=== PATIENT | female | born 1950 | race African-American/Black ===

== ENCOUNTER 2017-08-18 15:34 | Inpatient (IN) | payer MEDICARE ==
[~2017-08-18] VITALS: Ht 160 cm; Wt 71.4 kg
[2017-08-18] MEDS ORDERED: Acetaminophen 650 MG SUPP RECTAL ONE (16:00)
[2017-08-18 16:02] VITALS: BP 147/59
[2017-08-18 16:13] LABS: APPEARANCE,URINE CLOUDY; BILIRUBIN, URINE NEGATIVE (NEGATIVE); COLOR,URINE PALE YELLOW; GLUCOSE, URINE (UA) 4+ (NEGATIVE); KETONES,URINE 4+ (NEGATIVE); LEUKOCYTE ESTERASE ,URINE 3+ (NEGATIVE); NITRITE,URINE POSITIVE (NEGATIVE); PH,URINE 5 (4.5-8.0); PROTEIN,URINE 2+ (NEGATIVE); UROBILINOGEN,URINE NORMAL MG/DL (0.0-1.0)
[2017-08-18 16:15] LABS: BASOPHILS % (AUTO) 0.8 % (0.0-2.0); HEMATOCRIT 34.3 % (37.0-47.0); HEMOGLOBIN 11.1 G/DL (12.0-16.0); LYMPHOCYTES % (AUTO) 16.6 % (20.0-45.0); MEAN CORPUSCULAR VOLUME 101 FL (80-99); MONOCYTES % (AUTO) 7.8 % (1.0-10.0); NEUTROPHILS % (AUTO) 74.7 % (45.0-75.0); PLATELET COUNT 304 K/UL (150-450); RED BLOOD COUNT 3.42 M/UL (4.20-5.40); RED CELL DISTRIBUTION WIDTH 15.1 % (11.6-14.8); WHITE BLOOD COUNT 4.2 K/UL (4.8-10.8)
[2017-08-18 16:32] LABS: ALANINE AMINOTRANSFERASE 20 U/L (3-33); ALBUMIN 3.5 g/dL (3.5-5.2); ALBUMIN/GLOBULIN RATIO 1.1 (1.0-2.7); ALKALINE PHOSPHATASE 53 U/L (35-104); ANION GAP 32 (5-15); ASPARTATE AMINO TRANSFERASE 44 U/L (5-40); BILIRUBIN,TOTAL 0.4 mg/dL (0.0-1.2); BLOOD UREA NITROGEN 48 mg/dL (7-23); CARBON DIOXIDE 10 mEQ/L (20-30); CHLORIDE 92 mEQ/L (98-107); CREATINE KINASE > 1700 U/L (26-140); CREATININE 1.4 mg/dL (0.5-0.9); POTASSIUM 5.6 mEQ/L (3.4-4.9); SODIUM 134 mEQ/L (135-145)
[2017-08-18 16:43] LABS: CKMB 5.8 ng/mL (< 3.8)
[2017-08-18 16:45] VITALS: BP 126/55
[2017-08-18] MEDS ORDERED: cefTRIAXone 2 GM in NS 110 ML IVPB ONE (16:45)
--- NOTE | 2017-08-18 16:58 | Diagnostic Imaging Report ---
Indication: Altered level of consciousness Technique: spiral acquisitions obtained through the brain. Angled axial and coronal 5 x 5 mm slices were reconstructed. No IV contrast utilized. Radiation dose was minimized using automated exposure control Total dose length product 1407 mGycm. CTDIvol(s) 70 mGy Comparison: none FINDINGS: No acute hemorrhage or edema. No mass effect or midline shift. There is age-related enlargement of the ventricles and extra axial CSF spaces. There is periventricular deep white matter ischemic change. Normal sofia-white differentiation. Visualized orbits are unremarkable. Visualized sinuses are unremarkable. Intact calvarium. IMPRESSION: Chronic and age-related changes. Negative for acute intracranial bleed or mass effect The CT scanner at [facility] is accredited by the [employer] and the scans are performed using protocols designed to limit radiation exposure to as low as reasonably achievable to attain images of sufficient resolution adequate for diagnostic evaluation
--- NOTE | 2017-08-18 16:58 | Diagnostic Imaging Report ---
Indication: Altered level of consciousness Technique: spiral acquisitions obtained through the brain. Angled axial and coronal 5 x 5 mm slices were reconstructed. No IV contrast utilized. Radiation dose was minimized using automated exposure control Total dose length product 1407 mGycm. CTDIvol(s) 70 mGy Comparison: none FINDINGS: No acute hemorrhage or edema. No mass effect or midline shift. There is age-related enlargement of the ventricles and extra axial CSF spaces. There is periventricular deep white matter ischemic change. Normal sofia-white differentiation. Visualized orbits are unremarkable. Visualized sinuses are unremarkable. Intact calvarium. IMPRESSION: Chronic and age-related changes. Negative for acute intracranial bleed or mass effect The CT scanner at [facility] is accredited by the [employer] and the scans are performed using protocols designed to limit radiation exposure to as low as reasonably achievable to attain images of sufficient resolution adequate for diagnostic evaluation
--- NOTE | 2017-08-18 17:03 | Diagnostic Imaging Report ---
Indication: Chest pain Technique: One view of the chest Comparison: none Findings: There are bilateral reticular interstitial opacities diffusely. The lungs are hyperinflated. Heart size is normal. Aorta is elongated tortuous and calcified. The pleural spaces are clear. The bones are intact Impression: Hyperinflation, likely COPD Diffuse bilateral interstitial disease. Acuity indeterminate. Appearance is suggestive of chronic interstitial fibrosis, but acute interstitial edema is also a possibility. Correlate with clinical findings
[2017-08-18] MEDS ORDERED: PROTONIX40 MG ORAL (18:12)
[2017-08-18] MEDS ORDERED: MS CONTIN30 MG ORAL (18:12)
[2017-08-18] MEDS ORDERED: AMLODIPINE BESY10 MG ORAL (18:12)
[2017-08-18] MEDS ORDERED: CATAPRES0.1 MG ORAL (18:12)
[2017-08-18] MEDS ORDERED: NUTREN PO (18:12)
[2017-08-18] MEDS ORDERED: CALCIUM500 M3 PO (18:12)
[2017-08-18] MEDS ORDERED: TYLENOL EXTRA500 MG ORAL (18:12)
[2017-08-18] MEDS ORDERED: MULTIVITAMINS1 EAC2 ORAL (18:12)
[2017-08-18] MEDS ORDERED: FERROUS SULFAT325 MG ORAL (18:12)
[2017-08-18] MEDS ORDERED: LOSARTAN POTASS50 MG ORAL (18:12)
[2017-08-18] MEDS ORDERED: BACLOFEN10 MG ORAL (18:12)
[2017-08-18] MEDS ORDERED: ZOFRAN4 M3 ORAL (18:12)
[2017-08-18] MEDS ORDERED: CELEXA20 MG ORAL (18:12)
[2017-08-18] MEDS ORDERED: MAGNESIUM400 M1 PO (18:12)
[2017-08-18] MEDS ORDERED: ATIVAN0.5 MG ORAL (18:12)
[2017-08-18] MEDS ORDERED: VITAMIN C500 M1 ORAL (18:12)
[2017-08-18] MEDS ORDERED: PERCOCET 5-3251 EACH ORAL (18:12)
--- NOTE | 2017-08-18 18:23 | Emergency Room Report ---
History of Present Illness General Chief Complaint: Altered Level of Consciousness Source: Patient, Family Member Present Illness HPI This is a 59-year-old female sent in by [facility] after a decreased level consciousness. Patient had prior history of chronic pain. Patient had been noted be given Narcan by EMS. Patient gradual onset of worsening mental status per this occurred over the past 2 days. The patient had previously had a fractured tailbone protruding given pain medication. Per family patient had not been vomiting. She was normally verbal and recognize family.Per patient's family member that she had type 1 diabetesShe had previously been using an insulin pump. Allergies: Coded Allergies: No Known Allergies (Unverified , 08/18/17) Patient History Past Medical History: see triage record Reviewed Nursing Documentation: PMH: Agreed, PSxH: Agreed Review of Systems All Other Systems: limited - by mental status Physical Exam Vital Signs Date Time Temp Pulse Resp B/P (MAP) Pulse Ox O2 Delivery O2 Flow Rate FiO2 08/18/17 15:31 100.9 100 18 136/75 97 Room Air Sp02 EP Interpretation: reviewed, normal General Appearance: normal inspection, well appearing, mild distress Head: atraumatic Eyes: bilateral eye other - pupils pinpoint ENT: normal ENT inspection, hearing grossly normal, normal voice Neck: normal inspection, supple, no bony tend, limited range of motion Respiratory: normal inspection, lungs clear, normal breath sounds, no respiratory distress, no retraction, no wheezing Cardiovascular #1: regular rate, rhythm, no edema Gastrointestinal: normal inspection, normal bowel sounds, non tender, soft, no guarding, no hernia Genitourinary: no CVA tenderness Musculoskeletal: normal inspection, back normal, normal range of motion Neurologic: responsive, motor weakness - general, increased respiratory rate to pain Psychiatric: mood/affect normal Skin: normal inspection, normal color, no rash Medical Decision Making Diagnostic Impression: Primary Impression: Diabetes mellitus out of control Additional Impressions: Sepsis Renal insufficiency Rhabdomyolysis Dysphagia Altered mental status, unspecified Sacral fracture ER Course Patient present for altered mental status. Differential diagnosis included but was not limited to ischemic stroke, subarachnoid hemorrhage, hypoglycemia, spinal cord injury, neurodegenerative disorder, urinary tract infection, hypoxemia.Because of complexity of patient's case laboratory testing and imaging studies were ordered.The patient was noted to have evidence urinary tract infection. The patient's creatinine was also somewhat elevated the patient was given IV fluids.. Patient was noted to have insulin pump. Per family members the patient is a type I diabetic although her paperwork reflects type IIThe per family members patient has been having difficulty swallowing and requesting further evaluation. The patient was noted to have evidence of sepsis patient was discussed with Dr. Petrona Dee for Dr. Prabhu Winn due to HMO. Labs Test 08/18/17 15:40 08/18/17 18:50 08/18/17 23:35 White Blood Count 4.2 K/UL (4.8-10.8) Red Blood Count 3.42 M/UL (4.20-5.40) Hemoglobin 11.1 G/DL (12.0-16.0) Hematocrit 34.3 % (37.0-47.0) Mean Corpuscular Volume 101 FL (80-99) Mean Corpuscular Hemoglobin 32.4 PG (27.0-31.0) Mean Corpuscular Hemoglobin Concent 32.2 G/DL (32.0-36.0) Red Cell Distribution Width 15.1 % (11.6-14.8) Platelet Count 304 K/UL (150-450) Mean Platelet Volume 5.3 FL (6.5-10.1) Neutrophils (%) (Auto) 74.7 % (45.0-75.0) Lymphocytes (%) (Auto) 16.6 % (20.0-45.0) Monocytes (%) (Auto) 7.8 % (1.0-10.0) Eosinophils (%) (Auto) 0.0 % (0.0-3.0) Basophils (%) (Auto) 0.8 % (0.0-2.0) Urine Color Pale yellow Urine Appearance Cloudy Urine pH 5 (4.5-8.0) Urine Specific [place] 1.010 (1.005-1.035) Urine Protein 2+ (NEGATIVE) Urine Glucose (UA) 4+ (NEGATIVE) Urine Ketones 4+ (NEGATIVE) Urine Occult Blood 4+ (NEGATIVE) Urine Nitrite Positive (NEGATIVE) Urine Bilirubin Negative (NEGATIVE) Urine Urobilinogen Normal MG/DL (0.0-1.0) Urine Leukocyte Esterase 3+ (NEGATIVE) Urine RBC Tntc /HPF (0 - 2) Urine WBC Tntc /HPF (0 - 2) Urine Squamous Epithelial Cells Many /LPF (NONE/OCC) Urine Bacteria Moderate /HPF (NONE) Urine Yeast Many /HPF (NONE) Total Bilirubin 0.4 mg/dL (0.0-1.2) Aspartate Amino Transf (AST/SGOT) 44 U/L (5-40) Alanine Aminotransferase (ALT/SGPT) 20 U/L (3-33) Alkaline Phosphatase 53 U/L (35-104) Total Creatine Kinase > 1700 U/L (26-140) Creatine Kinase MB 5.8 ng/mL (< 3.8) Creatine Kinase MB Relative Index 0.0 Troponin I < 0.30 ng/mL (<=0.30) Total Protein 6.6 g/dL (6.6-8.7) Albumin 3.5 g/dL (3.5-5.2) Globulin 3.1 g/dL Albumin/Globulin Ratio 1.1 (1.0-2.7) Urine Opiates Screen Positive (NEGATIVE) Urine Barbiturates Screen Negative (NEGATIVE) Phencyclidine (PCP) Screen Negative (NEGATIVE) Urine Amphetamines Screen Negative (NEGATIVE) Urine Benzodiazepines Screen Negative (NEGATIVE) Urine Cocaine Screen Negative (NEGATIVE) Urine Marijuana (THC) Screen Negative (NEGATIVE) Lactic Acid Level 2.80 mmol/L (0.66-2.22) Sodium Level 140 mEQ/L (135-145) Potassium Level 4.9 mEQ/L (3.4-4.9) Chloride Level 102 mEQ/L (98-107) Carbon Dioxide Level 10 mEQ/L (20-30) Anion Gap 28 (5-15) Blood Urea Nitrogen 37 mg/dL (7-23) Creatinine 1.2 mg/dL (0.5-0.9) Estimat Glomerular Filtration Rate 54.2 mL/min (>60) Glucose Level 556 mg/dL (74-106) Calcium Level 9.2 mg/dL (8.6-10.2) Last Vital Signs Date Time Temp Pulse Resp B/P (MAP) Pulse Ox O2 Delivery O2 Flow Rate FiO2 08/18/17 16:39 99.2 08/18/17 16:02 100 28 147/59 96 Room Air Status: unchanged Disposition: XFER SHT-TRM HOSP Condition: Serious Referrals: NON PHYSICIAN (PCP) Israel Diana Aug 18, 2017 18:23
[2017-08-18 19:40] VITALS: BP 105/69
[2017-08-18 20:50] VITALS: BP 101/62
[2017-08-18 21:30] VITALS: BP 124/51
[2017-08-18] MEDS ORDERED: D5 1/2NS 1,000 ML IV SCH (23:00)
[2017-08-18 23:58] LABS: CALCIUM 9.2 mg/dL (8.6-10.2); CREATININE 1.2 mg/dL (0.5-0.9); POTASSIUM 4.9 mEQ/L (3.4-4.9)
[2017-08-19] VITALS (18 sets, daily range): BP systolic 91–145; BP diastolic 48–81
[2017-08-19] MEDS ORDERED: oxyCODONE HCL/Acetaminophen 5/325mg ORAL PRN ×2 (01:00→08:00)
[2017-08-19] MEDS ORDERED: LORazepam 0.5mg tab ORAL PRN ×2 (01:00→09:00)
[2017-08-19] MEDS ORDERED: Acetaminophen 500mg (ES) tab ORAL PRN ×2 (01:00→08:00)
[2017-08-19] MEDS ORDERED: NovoLOG Insulin Flexpen SUBQ SCH ×2 (06:30→11:30)
[2017-08-19] MEDS ORDERED: SODIUM BICARBONATE IV SCH (08:30)
[2017-08-19] MEDS ORDERED: D5NS IV SCH (08:30)
[2017-08-19] MEDS ORDERED: Sodium Bicarbonate 50 ML in D5 1/2NS 1,000 ML IV SCH ×4 (08:30)
[2017-08-19 08:37] LABS: HEMATOCRIT 29.8 % (37.0-47.0); HEMOGLOBIN 9.8 G/DL (12.0-16.0); MEAN CORPUSCULAR VOLUME 101 FL (80-99); PLATELET COUNT 266 K/UL (150-450); RED BLOOD COUNT 2.94 M/UL (4.20-5.40); RED CELL DISTRIBUTION WIDTH 15.9 % (11.6-14.8); WHITE BLOOD COUNT 3.5 K/UL (4.8-10.8)
[2017-08-19 08:50] LABS: CALCIUM 9.4 mg/dL (8.6-10.2); CREATININE 1.2 mg/dL (0.5-0.9); PHOSPHORUS 2.4 mg/dL (2.5-4.8); POTASSIUM 4.9 mEQ/L (3.4-4.9)
[2017-08-19] MEDS ORDERED: Citalopram 20mg Tab ORAL SCH (09:00)
[2017-08-19] MEDS: Ascorbic Acid 500mg tab ORAL SCH (09:00)
[2017-08-19] MEDS ORDERED: Ascorbic Acid 500mg tab ORAL SCH (09:00)
[2017-08-19] MEDS: Losartan 50mg tab ORAL SCH (09:00)
[2017-08-19] MEDS ORDERED: Losartan 50mg tab ORAL SCH (09:00)
[2017-08-19] MEDS: Citalopram 20mg Tab ORAL SCH (09:00)
[2017-08-19] MEDS ORDERED: MS Contin 15mg tab ORAL SCH ×2 (09:00)
--- NOTE | 2017-08-19 13:03 | History & Physical ---
History and Physical History & Physicial %[id number] DKA uti sepsis htn, anxiety depression chronic pain on meds AMS lactic acidosis respiratory failure on bipap JERO CALI DO Aug 19, 2017 13:03
--- NOTE | 2017-08-19 13:03 | History & Physical ---
History and Physical History & Physicial %[id number] DKA uti sepsis htn, anxiety depression chronic pain on meds AMS lactic acidosis respiratory failure on bipap JERO CALI DO Aug 19, 2017 13:03
--- NOTE | 2017-08-19 13:03 | History & Physical ---
History and Physical History & Physicial %[id number] DKA uti sepsis htn, anxiety depression chronic pain on meds AMS lactic acidosis respiratory failure on bipap JERO CALI DO Aug 19, 2017 13:03
[2017-08-19] MEDS ORDERED: LEVEMIR100 UNIT/1 SUBQ (13:56)
[2017-08-19] MEDS ORDERED: HEPARIN SO5000 UNIT2 SUBQ (13:56)
[2017-08-19] MEDS ORDERED: LEVOTHYROXINE75 MCG ORAL (13:56)
[2017-08-19] MEDS ORDERED: HUMALOG 75/255 UNIT1 SUBQ (13:56)
[2017-08-19] MEDS ORDERED: FOSAMAX70 MG ORAL (13:56)
[2017-08-19] MEDS ORDERED: HYDRALAZINE HCL25 M2 PO (13:56)
[2017-08-19] MEDS ORDERED: D5 1/2NS 1000ml IV ONE (14:14)
[2017-08-19] MEDS: Insulin Rate Change 1 Each MISC PRN ×4 (14:35→22:17)
[2017-08-19 14:36] LABS: BASOPHILS % (AUTO) 1.1 % (0.0-2.0); HEMATOCRIT 30.1 % (37.0-47.0); HEMOGLOBIN 9.8 G/DL (12.0-16.0); LYMPHOCYTES % (AUTO) 11.7 % (20.0-45.0); MEAN CORPUSCULAR VOLUME 100 FL (80-99); NEUTROPHILS % (AUTO) 83.3 % (45.0-75.0); PLATELET COUNT 241 K/UL (150-450); RED BLOOD COUNT 3.02 M/UL (4.20-5.40); RED CELL DISTRIBUTION WIDTH 15.8 % (11.6-14.8); WHITE BLOOD COUNT 3.6 K/UL (4.8-10.8)
[2017-08-19 14:50] LABS: PHOSPHORUS 0.8 mg/dL (2.5-4.8)
[2017-08-19 14:52] LABS: ALANINE AMINOTRANSFERASE 20 U/L (3-33); ALBUMIN 2.9 g/dL (3.5-5.2); ALKALINE PHOSPHATASE 45 U/L (35-104); ANION GAP 20 (5-15); ASPARTATE AMINO TRANSFERASE 49 U/L (5-40); BILIRUBIN,TOTAL 0.3 mg/dL (0.0-1.2); BLOOD UREA NITROGEN 31 mg/dL (7-23); CALCIUM 9.2 mg/dL (8.6-10.2); CARBON DIOXIDE 19 mEQ/L (20-30); CHLORIDE 114 mEQ/L (98-107); POTASSIUM 3.3 mEQ/L (3.4-4.9); SODIUM 153 mEQ/L (135-145)
[2017-08-19] MEDS ORDERED: Sodium Phosphate 30 MM in NS 275 ML IVPB ONE (16:00)
[2017-08-19] MEDS ORDERED: Potassium Phosphate 30 MM in NS 275 ML IV ONE (16:00)
--- NOTE | 2017-08-19 18:39 | Physician Query ---
PLEASE COMPLETE DOCUMENT BEFORE SIGNING Dear Dr. Park Date: 08/19/2017 Maintenance Pipefitter/CDS Name: Misael Barnard Maintenance Pipefitter / CDS Phone #_Ext #[phone]___ Exercise your independent professional judgment when responding to query. Question asked do not imply a particular answer is desired/expected. Clinical Documentation States: "Altered Mental Status" & "AMS" documented in ED Provider Note & Dr. Bonds's History & Physical Clinical Findings Show: "Sepsis, UTI, Lactic Acidosis, Diabetes mellitus out of control" as per Dr. Bonds's History & Physical & ED Provider Note Please indicate the nature and chronicity of the condition below: [] Metabolic Encephalopathy [] Toxic Encephalopathy [X] Toxic - Metabolic Encephalopathy [] Progressive Encephalopathy [] Encephalopathy, Other [] Other: [] Not Applicable Severity []X Acute [] Chronic [] Acute on Chronic [] Unable to determine Condition Present on Admission: [X] Yes [] No []Clinically Undeterminable Please also document in your Progress Notes and/or Discharge Summary and indicate if the condition was present on admission. JERO BONDS DO Date & Time MTDD
--- NOTE | 2017-08-19 18:39 | Physician Query ---
PLEASE COMPLETE DOCUMENT BEFORE SIGNING Dear Dr. Park Date: 08/19/2017 School Bus Dispatcher/CDS Name: Misael Barnard School Bus Dispatcher / CDS Phone #_Ext #[phone]___ Exercise your independent professional judgment when responding to query. Question asked do not imply a particular answer is desired/expected. Clinical Documentation States: "Altered Mental Status" & "AMS" documented in ED Provider Note & Dr. Bonds's History & Physical Clinical Findings Show: "Sepsis, UTI, Lactic Acidosis, Diabetes mellitus out of control" as per Dr. Bonds's History & Physical & ED Provider Note Please indicate the nature and chronicity of the condition below: [] Metabolic Encephalopathy [] Toxic Encephalopathy [X] Toxic - Metabolic Encephalopathy [] Progressive Encephalopathy [] Encephalopathy, Other [] Other: [] Not Applicable Severity []X Acute [] Chronic [] Acute on Chronic [] Unable to determine Condition Present on Admission: [X] Yes [] No []Clinically Undeterminable Please also document in your Progress Notes and/or Discharge Summary and indicate if the condition was present on admission. JERO BONDS DO Date & Time MTDD
--- NOTE | 2017-08-19 18:39 | Physician Query ---
PLEASE COMPLETE DOCUMENT BEFORE SIGNING Dear Dr. Park Date: 08/19/2017 History Professor/CDS Name: Misael Barnard History Professor / CDS Phone #_Ext #[phone]___ Exercise your independent professional judgment when responding to query. Question asked do not imply a particular answer is desired/expected. Clinical Documentation States: "Altered Mental Status" & "AMS" documented in ED Provider Note & Dr. Bonds's History & Physical Clinical Findings Show: "Sepsis, UTI, Lactic Acidosis, Diabetes mellitus out of control" as per Dr. Bonds's History & Physical & ED Provider Note Please indicate the nature and chronicity of the condition below: [] Metabolic Encephalopathy [] Toxic Encephalopathy [X] Toxic - Metabolic Encephalopathy [] Progressive Encephalopathy [] Encephalopathy, Other [] Other: [] Not Applicable Severity []X Acute [] Chronic [] Acute on Chronic [] Unable to determine Condition Present on Admission: [X] Yes [] No []Clinically Undeterminable Please also document in your Progress Notes and/or Discharge Summary and indicate if the condition was present on admission. JERO BONDS DO Date & Time MTDD
[2017-08-19 20:54] LABS: ALANINE AMINOTRANSFERASE 20 U/L (3-33); ALBUMIN 2.5 g/dL (3.5-5.2); ALBUMIN/GLOBULIN RATIO 0.6 (1.0-2.7); ALKALINE PHOSPHATASE 51 U/L (35-104); ANION GAP 16 (5-15); ASPARTATE AMINO TRANSFERASE 64 U/L (5-40); BILIRUBIN,TOTAL 0.4 mg/dL (0.0-1.2); BLOOD UREA NITROGEN 29 mg/dL (7-23); CALCIUM 9.2 mg/dL (8.6-10.2); CARBON DIOXIDE 20 mEQ/L (20-30); CHLORIDE 115 mEQ/L (98-107); CREATININE 0.8 mg/dL (0.5-0.9); PHOSPHORUS 3.3 mg/dL (2.5-4.8); POTASSIUM 4.2 mEQ/L (3.4-4.9); SODIUM 151 mEQ/L (135-145)
[2017-08-19 21:02] LABS: BASOPHILS % (AUTO) 0.6 % (0.0-2.0); EOSINOPHILS % (AUTO) 0.1 % (0.0-3.0); HEMATOCRIT 31.5 % (37.0-47.0); HEMOGLOBIN 10.2 G/DL (12.0-16.0); LYMPHOCYTES % (AUTO) 11.9 % (20.0-45.0); MEAN CORPUSCULAR VOLUME 99 FL (80-99); MONOCYTES % (AUTO) 3.6 % (1.0-10.0); NEUTROPHILS % (AUTO) 83.8 % (45.0-75.0); PLATELET COUNT 214 K/UL (150-450); RED CELL DISTRIBUTION WIDTH 15.5 % (11.6-14.8); WHITE BLOOD COUNT 4.3 K/UL (4.8-10.8)
[2017-08-20] VITALS (25 sets, daily range): BP systolic 99–162; BP diastolic 48–85
[2017-08-20] MEDS: Insulin Rate Change 1 Each MISC PRN (02:11)
[2017-08-20 04:56] LABS: HEMATOCRIT 30.5 % (37.0-47.0); HEMOGLOBIN 10.2 G/DL (12.0-16.0); MEAN CORPUSCULAR VOLUME 98 FL (80-99); PLATELET COUNT 189 K/UL (150-450); RED BLOOD COUNT 3.11 M/UL (4.20-5.40); RED CELL DISTRIBUTION WIDTH 15.4 % (11.6-14.8); WHITE BLOOD COUNT 4.3 K/UL (4.8-10.8)
[2017-08-20 05:15] LABS: ALANINE AMINOTRANSFERASE 22 U/L (3-33); ALBUMIN 2.2 g/dL (3.5-5.2); ALBUMIN/GLOBULIN RATIO 0.5 (1.0-2.7); ALKALINE PHOSPHATASE 57 U/L (35-104); ANION GAP 15 (5-15); ASPARTATE AMINO TRANSFERASE 74 U/L (5-40); BILIRUBIN,TOTAL 0.4 mg/dL (0.0-1.2); BLOOD UREA NITROGEN 22 mg/dL (7-23); CALCIUM 8.8 mg/dL (8.6-10.2); CARBON DIOXIDE 20 mEQ/L (20-30); CHLORIDE 116 mEQ/L (98-107); CREATININE 0.7 mg/dL (0.5-0.9); PHOSPHORUS 2.6 mg/dL (2.5-4.8); POTASSIUM 3.7 mEQ/L (3.4-4.9); SODIUM 151 mEQ/L (135-145)
[2017-08-20] MEDS ORDERED: Insulin Rate Change 1 Each MISC PRN (07:15)
--- NOTE | 2017-08-20 08:38 | Pulmonolgy Critical Care Note ---
Critical Care - Asmt/Plan Assessment/Plan: DKA uti sepsis htn, anxiety depression chronic pain on meds AMS lactic acidosis respiratory failure on bipap improved this am insulin drip dc clear liquids/swallow eval fu duplex bs control iv abx adn fu cultures titrate bipap of and use prn distress nebs adn suction wound care monitor uop lytes and gap, prn abg continue ICU level of care, pt is not stable to transfer to [facility] at this time. greater than 35 minutes of critical care time spent reviewing the ON events, dw nursing, documentation, exam and plan for the day Critical Care - Objective Last 24 Hour Vital Signs Date Time Temp Pulse Resp B/P (MAP) Pulse Ox O2 Delivery O2 Flow Rate FiO2 08/20/17 07:02 99 29 98 Facial 40 08/20/17 06:00 88 27 148/65 100 Bi-pap 40 08/20/17 05:14 105 27 100 Facial 40 08/20/17 05:00 108 26 133/82 95 Bi-pap 40 08/20/17 04:00 106 08/20/17 04:00 40 08/20/17 04:00 100.7 106 26 135/69 96 Bi-pap 40 08/20/17 03:00 108 26 110/71 96 Bi-pap 40 08/20/17 02:57 110 29 99 Facial 40 08/20/17 02:00 108 21 120/79 96 Bi-pap 40 08/20/17 01:02 108 25 100 Facial 40 08/20/17 01:00 107 18 99/48 97 Bi-pap 40 08/20/17 00:00 98.0 97 23 136/67 100 Bi-pap 50 08/20/17 00:00 105 08/20/17 00:00 50 08/19/17 23:07 107 23 100 Facial 50 08/19/17 23:00 103 24 145/81 99 Bi-pap 50 08/19/17 22:00 98 24 132/55 99 Bi-pap 50 08/19/17 21:05 91 24 100 Facial 50 08/19/17 21:00 96 24 110/53 99 Bi-pap 50 08/19/17 20:00 97 08/19/17 20:00 97.9 99 22 116/62 98 Bi-pap 50 08/19/17 20:00 50 08/19/17 19:05 104 23 97 Facial 50 08/19/17 19:00 99 20 98/61 94 Bi-pap 50 08/19/17 18:00 91 20 117/53 94 Bi-pap 50 08/19/17 17:29 92 22 96 Facial 50 08/19/17 17:00 94 19 118/59 94 Bi-pap 50 08/19/17 16:00 98.9 90 21 97/51 94 Bi-pap 50 08/19/17 16:00 50 08/19/17 16:00 89 08/19/17 15:12 88 20 99 Facial 50 08/19/17 15:00 79 19 98/58 94 Bi-pap 50 08/19/17 14:00 88 20 94/48 94 Bi-pap 50 08/19/17 13:20 90 18 100 Facial 50 08/19/17 13:00 90 20 92/51 94 Bi-pap 50 08/19/17 12:00 87 08/19/17 12:00 50 08/19/17 12:00 98.9 89 21 104/50 94 Bi-pap 50 08/19/17 11:10 87 19 98 Facial 50 08/19/17 11:00 86 21 111/61 94 Bi-pap 50 08/19/17 10:00 96 21 91/55 94 Bi-pap 50 08/19/17 09:12 90 20 97 Facial 50 08/19/17 09:00 94 20 113/56 94 Bi-pap 50 Status: other - less obtunded Condition: critical Heart: HR/BP stable Abdomen: soft, active bowel sounds Extremities: no C/C/E Micro: Microbiology Date/Time Source Procedure Growth Status 08/18/17 15:50 Blood Blood Culture - Preliminary NO GROWTH AFTER 24 HOURS Resulted 08/18/17 15:40 Blood Blood Culture - Preliminary NO GROWTH AFTER 24 HOURS Resulted 08/18/17 15:40 Urine,Clean Catch Urine Culture - Preliminary Gram Negative Rafi Resulted 08/19/17 07:00 Buttock Left Gram Stain - Final Resulted 08/19/17 07:00 Buttock Left Wound Culture Pending Resulted Accucheck: 87 Blood Sugars: BS controlled Critical Care - Subjective ROS Limited/Unobtainable: Yes Condition: critical FI02: 40 Vent Support Mode: BiLevel Sputum Amount: None Subjective: remained on bipap overnight gap closed with insulin drip, fluids replacement of lytes on iv abx more awake but still confused pain meds previously held but to resume low dose today positive uop vitals improved unable to do duplex as pt is agitated to tech JERO CALI DO Aug 20, 2017 08:38
[2017-08-20] MEDS: Pantoprazole Inj IVP SCH (10:25)
[2017-08-20] MEDS: Losartan 50mg tab ORAL SCH (10:26)
[2017-08-20] MEDS: Citalopram 20mg Tab ORAL SCH (10:26)
[2017-08-20] MEDS: Ascorbic Acid 500mg tab ORAL SCH (10:27)
[2017-08-20] MEDS: Levemir Flexpen SUBQ SCH ×2 (10:41→20:39)
[2017-08-20] MEDS: NovoLOG Insulin Flexpen SUBQ SCH ×4 (10:45→20:39)
[2017-08-20] MEDS: Morphine Sulfate 2mg/ml Inj IVP PRN ×2 (10:52→23:52)
--- NOTE | 2017-08-20 13:45 | History and Physical Report ---
DATE OF ADMISSION: 08/18/2017 CRITICAL CARE HISTORY AND PHYSICAL REASON FOR ADMISSION: Altered mental status. History Of Present Illness: This is a 67-year-old female, who was admitted through the emergency room [facility] with decreased level of consciousness. Initially, the patient was reported per the emergency room record that she has a history of chronic pain and is on long-acting pain medication. She was noted with the increasing altered mental status. Paramedics gave her dose of Narcan without improvement. She has had no nausea, vomiting, or diarrhea that has been reported. She again had a recent fracture of her tailbone, which is the reason for her current chronic pain and pain management. No reported fevers or chills. In the emergency room, the patient was nonverbal and obtunded. Blood gas was not obtained. The ER doctor stated that she had diabetes and previously had been on a pump. She was started on IV antibiotics and IV fluids and transferred to [facility]. Subsequently, the patient maintained with respiratory insufficiency and increased distress. An ABG was obtained, which noted a pH of 7.129, pCO2 of 15, and pO2 of 77. The patient was placed on BiPAP and fluids were continued and repeat blood gas was somewhat improved with a pH of 7.2. Insulin sliding scale had been started due to elevated blood sugars. I was not informed that the patient was normally on long-acting insulin and had not been reordered. Her repeat ABG, pH 7.218, pCO2 17, and pO2 of 109. Upon that time, the patient was transferred to the ICU, placed on an insulin drip, and Endocrinology consult pending at this time. The patient is more awake, does move her extremities with good urine output. No evidence of nausea or vomiting. She is having no fevers and her vital signs have remained stable. Past Medical History: Includes diabetes, dementia, hypertension, depression, anxiety, and chronic pain. Medications: Present medications initially by the staff only reviewed in the electronic medical record, but her pre-hospital medical record has been reviewed as well indicating that she does take Levemir twice a day at her facility. SOCIAL HISTORY: Unavailable. REVIEW OF SYSTEMS: Unavailable. PHYSICAL EXAMINATION: General: At the time of my exam, her eyes are open. She is moving all extremities. On BiPAP 12/5 with tidal volumes of 450 to 600, no acute distress. Vital Signs: She is afebrile, pulse is 87, and blood pressure 104/50. HEENT: She is normocephalic and atraumatic. Oropharynx is dry. Nasal mucosa is dry. LUNGS: Decreased breath sounds at bases. No wheezes present. HEART: Regular without a murmur. ABDOMEN: Soft and nontender. Positive bowel sounds. EXTREMITIES: With no edema. Esposito catheter is in place. Laboratory And Diagnostic Data: Her labs from 7 o'clock this morning, white count of 3.5, hemoglobin of 9.8, and platelets of 266,000. Sodium 144, potassium 4.9, chloride 105, bicarbonate is 15, BUN is 37, creatinine 1.2, and glucose was 603. Her phosphorus 2.4. Her troponin is negative. Her gap was noted to be 24, which is down from 28. Her urinalysis is positive for leukocyte esterase. Her urine drug screen was only positive for opioids and her urine was positive for leukocyte esterase. Her chest x-ray was reported to be bilateral interstitial disease suggestive of fibrosis and a CT scan of her head with chronic age related changes, no acute pathology. Microbiology of her urine is positive for Gram-negative rods. Assessment: The patient in diabetic ketoacidosis, altered mental status, chronic pain on narcotics, hypertension, depression, anxiety, urinary tract infection, and sepsis. Plan: The patient is to continue in the intensive care unit. She is currently on an insulin drip following the hospital based insulin drip protocol, laboratory values q.6 h., IV fluid, replace her electrolytes. Continue IV antibiotics. Continue on BiPAP at this time and we will attempt to take her off if her respiratory status improves. DVT prophylaxis. Gastrointestinal prophylaxis. P.r.n. nebulizers. Home medications have been renewed. When the patient is able to take p.o., those will be resumed. Following her urine culture, blood cultures have not been obtained and these will be ordered at this time as well. Aspiration precautions greater than 75 minutes. Critical care time spent with the patient reviewing medical records and discussing with the nursing staff have been provided and we will continue to follow the patient for the remainder of her hospital stay. She is still unstable for transfer to a contracted facility. Petrona Bonds D.O. DR: Nancy JOB#: [id number] CC:
[2017-08-20] MEDS ORDERED: Tubing IV Secondary IV ONE (15:39)
[2017-08-20] MEDS ORDERED: 1/2 NS 1000ml IV ONE (15:39)
[2017-08-21] VITALS (20 sets, daily range): BP systolic 98–149; BP diastolic 52–79
[2017-08-21] MEDS: NovoLOG Insulin Flexpen SUBQ SCH ×6 (00:41→21:05)
[2017-08-21 05:38] LABS: HEMATOCRIT 27.2 % (37.0-47.0); HEMOGLOBIN 9.4 G/DL (12.0-16.0); MEAN CORPUSCULAR VOLUME 98 FL (80-99); PLATELET COUNT 122 K/UL (150-450); RED BLOOD COUNT 2.77 M/UL (4.20-5.40); RED CELL DISTRIBUTION WIDTH 15.2 % (11.6-14.8); WHITE BLOOD COUNT 5.7 K/UL (4.8-10.8)
[2017-08-21 06:14] LABS: ANION GAP 14 (5-15); BLOOD UREA NITROGEN 21 mg/dL (7-23); CALCIUM 8.4 mg/dL (8.6-10.2); CARBON DIOXIDE 21 mEQ/L (20-30); CHLORIDE 108 mEQ/L (98-107); CREATININE 0.4 mg/dL (0.5-0.9); POTASSIUM 3.5 mEQ/L (3.4-4.9); SODIUM 143 mEQ/L (135-145)
[2017-08-21] MEDS: Morphine Sulfate 2mg/ml Inj IVP PRN (07:50)
[2017-08-21] MEDS: Ascorbic Acid 500mg tab ORAL SCH (08:11)
[2017-08-21] MEDS: Citalopram 20mg Tab ORAL SCH (08:11)
[2017-08-21] MEDS: Losartan 50mg tab ORAL SCH (08:12)
[2017-08-21] MEDS: Pantoprazole Inj IVP SCH (08:13)
--- NOTE | 2017-08-21 08:14 | General Progress Note ---
Assessment/Plan Problem List: (1) DKA (diabetic ketoacidoses) ICD Codes: E13.10 - Other specified diabetes mellitus with ketoacidosis without coma SNOMED: 84047347, 427097043 (2) Altered level of consciousness ICD Codes: R40.4 - Transient alteration of awareness SNOMED: 6572472 (3) Hyperkalemia ICD Codes: E87.5 - Hyperkalemia SNOMED: 29588669 (4) Rhabdomyolysis ICD Codes: M62.82 - Rhabdomyolysis SNOMED: 362812305, 912180605 (5) Diabetes mellitus out of control ICD Codes: E11.65 - Type 2 diabetes mellitus with hyperglycemia SNOMED: 430860964, 82302206 (6) Sepsis ICD Codes: A41.9 - Sepsis, unspecified organism SNOMED: 88290158 (7) Hypothyroidism ICD Codes: E03.9 - Hypothyroidism, unspecified SNOMED: 77202906 Assessment/Plan DKA resolved continue Levemir 15 units bid continue Novolog sliding scale ac / hs continue Levothyroxine 75 mcg daily Subjective ROS Limited/Unobtainable: Yes Allergies: Coded Allergies: No Known Allergies (Unverified , 08/18/17) Subjective events noted - interval notes reviewed Objective Last 24 Hour Vital Signs Date Time Temp Pulse Resp B/P (MAP) Pulse Ox O2 Delivery O2 Flow Rate FiO2 08/21/17 07:09 83 18 Venturi Mask 12.0 50 08/21/17 07:09 96 Venturi Mask 12.0 50 08/21/17 07:09 Venturi Mask 12.0 50 08/21/17 07:00 82 21 128/55 93 Venturi Mask 50 08/21/17 06:00 79 21 135/57 95 Venturi Mask 50 08/21/17 05:00 76 22 149/61 95 Venturi Mask 50 08/21/17 04:00 98.4 76 22 131/60 94 Venturi Mask 50 08/21/17 04:00 81 08/21/17 04:00 50.0 08/21/17 03:00 87 23 98/79 93 Venturi Mask 50 08/21/17 02:00 80 21 121/52 98 Venturi Mask 50 08/21/17 01:00 79 20 108/56 95 Venturi Mask 50 08/21/17 00:06 83 08/21/17 00:00 50.0 08/21/17 00:00 98.8 83 21 123/53 95 Venturi Mask 50 08/20/17 23:00 82 20 108/50 95 Venturi Mask 50 08/20/17 22:00 88 21 116/54 96 Venturi Mask 50 08/20/17 21:00 92 23 123/57 96 Venturi Mask 50 08/20/17 20:00 99.1 91 24 139/85 95 Venturi Mask 50 08/20/17 20:00 50.0 08/20/17 19:53 91 08/20/17 19:18 Venturi Mask 12.0 50 08/20/17 19:17 89 21 Venturi Mask 12.0 50 08/20/17 19:17 98 Venturi Mask 12.0 50 08/20/17 19:00 88 24 132/49 94 Venturi Mask 50 08/20/17 18:00 89 25 115/51 92 Venturi Mask 50 08/20/17 17:00 92 25 143/66 91 Venturi Mask 50 08/20/17 16:00 99.4 94 25 152/54 93 Venturi Mask 50 08/20/17 16:00 91 08/20/17 16:00 50.0 08/20/17 15:00 95 26 127/72 91 Venturi Mask 40 08/20/17 14:00 97 26 138/72 91 Venturi Mask 40 08/20/17 13:00 98 24 150/57 92 Venturi Mask 40 08/20/17 12:16 Venturi Mask 08/20/17 12:00 110 08/20/17 12:00 40.0 08/20/17 12:00 99.4 105 27 115/54 93 Venturi Mask 40 08/20/17 11:00 103 26 143/75 92 Venturi Mask 40 08/20/17 10:26 156/67 08/20/17 10:26 94 156/67 08/20/17 10:00 102 29 156/67 94 Venturi Mask 40 08/20/17 09:00 102 27 151/73 95 Venturi Mask 40 08/20/17 09:00 96 8.0 40 Laboratory Tests 08/20/17 08:30: Thyroid Stimulating Hormone (TSH) 3.070, Free Thyroxine 0.85L 08/21/17 04:45: White Blood Count 5.7, Red Blood Count 2.77L, Hemoglobin 9.4L, Hematocrit 27.2L , Mean Corpuscular Volume 98, Mean Corpuscular Hemoglobin 33.8H, Mean Corpuscular Hemoglobin Concent 34.4, Red Cell Distribution Width 15.2H, Platelet Count 122L, Mean Platelet Volume 7.1, Neutrophils (%) (Auto) , Lymphocytes (%) (Auto) , Monocytes (%) (Auto) , Eosinophils (%) (Auto) , Basophils (%) (Auto) , Sodium Level 143, Potassium Level 3.5, Chloride Level 108H, Carbon Dioxide Level 21, Anion Gap 14, Blood Urea Nitrogen 21, Creatinine 0.4L, Estimat Glomerular Filtration Rate > 60, Glucose Level 145H, Calcium Level 8.4L, Magnesium Level 1.8 08/21/17 07:09: Arterial Blood pH 7.481H, Arterial Blood Partial Pressure CO2 31.9L, Arterial Blood Partial Pressure O2 60.5L, Arterial Blood HCO3 23.3, Arterial Blood Oxygen Saturation 91.9L, Arterial Blood Base Excess 0.2, Adolfo Test Positive Height (Feet): 5 Height (Inches): 3.00 Weight (Pounds): 104 General Appearance: no apparent distress Neck: normal alignment Cardiovascular: normal rate Respiratory/Chest: lungs clear Abdomen: normal bowel sounds Pelvis: normal external exam Edema: no edema noted Arm (L), no edema noted Arm (R), no edema noted Leg (L), no edema noted Leg (R), no edema noted Pedal (L), no edema noted Pedal (R), no edema noted Generalized Objective Current Medications Medications (Trade) Dose Ordered Sig/Adonay Route PRN Reason Start Time Stop Time Status Last Admin Dose Admin Acetaminophen (Tylenol) 650 mg Q6H PRN ORAL Mild Pain/Temp > 100.5 08/19/17 08:00 09/18/17 07:59 08/20/17 20:38 Amlodipine Besylate (Norvasc) 10 mg DAILY ORAL 08/19/17 09:00 09/18/17 08:59 08/20/17 10:26 Ascorbic Acid (Vitamin C) 500 mg DAILY ORAL 08/19/17 09:00 09/18/17 08:59 08/20/17 10:27 Baclofen (Lioresal) 10 mg THREE TIMES A DAY ORAL 08/19/17 09:00 09/18/17 08:59 08/20/17 17:47 Citalopram Hydrobromide (celeXA) 20 mg DAILY ORAL 08/19/17 09:00 09/18/17 08:59 08/20/17 10:26 Clonidine HCl (Catapres) 0.1 mg Q6H PRN ORAL SBP > 160mmHg 08/19/17 08:00 09/18/17 07:59 Dextrose (Dextrose 50%) STAT PRN IV Hypoglycemia 08/20/17 07:30 09/19/17 07:29 Ferrous Sulfate (Feosol) 325 mg DAILY ORAL 08/19/17 09:00 09/18/17 08:59 08/20/17 10:25 Insulin Aspart (NovoLOG) EVERY 4 HOURS SUBQ 08/20/17 09:00 09/19/17 08:59 08/21/17 04:51 Insulin Detemir (Levemir) 15 units Q12HR SUBQ 08/20/17 09:00 09/19/17 08:59 08/20/17 10:41 Levothyroxine Sodium (Synthroid) 75 mcg DAILY@0630 ORAL 08/20/17 07:30 09/19/17 07:29 08/21/17 05:57 Lorazepam (Ativan) 0.5 mg Q8H PRN ORAL For Anxiety 08/19/17 09:00 08/26/17 08:59 Losartan Potassium (Cozaar) 50 mg DAILY ORAL 08/19/17 09:00 09/18/17 08:59 08/20/17 10:26 Morphine Sulfate (Morphine Sulfate) 1 mg Q4H PRN IVP Severe Pain (Pain Scale 7-10) 08/20/17 08:45 08/27/17 08:44 08/21/17 07:50 Multivitamins (Multivitamins) 1 tab DAILY ORAL 08/19/17 09:00 09/18/17 08:59 08/20/17 10:26 Ondansetron HCl (Zofran) 4 mg Q6H PRN ORAL Nausea & Vomiting 08/19/17 08:00 09/18/17 07:59 Oxycodone/ Acetaminophen (Percocet 5-325) 1 tab Q6H PRN ORAL Severe Breakthrough Pain 08/19/17 08:00 10/7/17 07:59 Pantoprazole (Protonix) 40 mg DAILY IVP 08/20/17 09:00 09/19/17 08:59 08/20/17 10:25 Sodium Chloride 1,000 ml @ 150 mls/hr Q6H40M IV 08/19/17 15:15 09/18/17 15:14 08/21/17 06:57 Item Value Date Time Bedside Blood Glucose 144 mg/dl H 08/21/17 0454 Bedside Blood Glucose 141 mg/dl H 08/21/17 0041 Bedside Blood Glucose 89 mg/dl 08/20/17 2045 Bedside Blood Glucose 139 mg/dl H 08/20/17 1750 Bedside Blood Glucose 123 mg/dl H 08/20/17 1345 Bedside Blood Glucose 209 mg/dl H 08/20/17 1045 Bedside Blood Glucose 89 mg/dl 08/20/17 0600 KAYLEE DARNELL Aug 21, 2017 08:14
--- NOTE | 2017-08-21 08:14 | General Progress Note ---
Assessment/Plan Problem List: (1) DKA (diabetic ketoacidoses) ICD Codes: E13.10 - Other specified diabetes mellitus with ketoacidosis without coma SNOMED: 73071937, 024995268 (2) Altered level of consciousness ICD Codes: R40.4 - Transient alteration of awareness SNOMED: 0137929 (3) Hyperkalemia ICD Codes: E87.5 - Hyperkalemia SNOMED: 80778959 (4) Rhabdomyolysis ICD Codes: M62.82 - Rhabdomyolysis SNOMED: 860692346, 202115145 (5) Diabetes mellitus out of control ICD Codes: E11.65 - Type 2 diabetes mellitus with hyperglycemia SNOMED: 032205828, 97917204 (6) Sepsis ICD Codes: A41.9 - Sepsis, unspecified organism SNOMED: 84494387 (7) Hypothyroidism ICD Codes: E03.9 - Hypothyroidism, unspecified SNOMED: 47103121 Assessment/Plan DKA resolved continue Levemir 15 units bid continue Novolog sliding scale ac / hs continue Levothyroxine 75 mcg daily Subjective ROS Limited/Unobtainable: Yes Allergies: Coded Allergies: No Known Allergies (Unverified , 08/18/17) Subjective events noted - interval notes reviewed Objective Last 24 Hour Vital Signs Date Time Temp Pulse Resp B/P (MAP) Pulse Ox O2 Delivery O2 Flow Rate FiO2 08/21/17 07:09 83 18 Venturi Mask 12.0 50 08/21/17 07:09 96 Venturi Mask 12.0 50 08/21/17 07:09 Venturi Mask 12.0 50 08/21/17 07:00 82 21 128/55 93 Venturi Mask 50 08/21/17 06:00 79 21 135/57 95 Venturi Mask 50 08/21/17 05:00 76 22 149/61 95 Venturi Mask 50 08/21/17 04:00 98.4 76 22 131/60 94 Venturi Mask 50 08/21/17 04:00 81 08/21/17 04:00 50.0 08/21/17 03:00 87 23 98/79 93 Venturi Mask 50 08/21/17 02:00 80 21 121/52 98 Venturi Mask 50 08/21/17 01:00 79 20 108/56 95 Venturi Mask 50 08/21/17 00:06 83 08/21/17 00:00 50.0 08/21/17 00:00 98.8 83 21 123/53 95 Venturi Mask 50 08/20/17 23:00 82 20 108/50 95 Venturi Mask 50 08/20/17 22:00 88 21 116/54 96 Venturi Mask 50 08/20/17 21:00 92 23 123/57 96 Venturi Mask 50 08/20/17 20:00 99.1 91 24 139/85 95 Venturi Mask 50 08/20/17 20:00 50.0 08/20/17 19:53 91 08/20/17 19:18 Venturi Mask 12.0 50 08/20/17 19:17 89 21 Venturi Mask 12.0 50 08/20/17 19:17 98 Venturi Mask 12.0 50 08/20/17 19:00 88 24 132/49 94 Venturi Mask 50 08/20/17 18:00 89 25 115/51 92 Venturi Mask 50 08/20/17 17:00 92 25 143/66 91 Venturi Mask 50 08/20/17 16:00 99.4 94 25 152/54 93 Venturi Mask 50 08/20/17 16:00 91 08/20/17 16:00 50.0 08/20/17 15:00 95 26 127/72 91 Venturi Mask 40 08/20/17 14:00 97 26 138/72 91 Venturi Mask 40 08/20/17 13:00 98 24 150/57 92 Venturi Mask 40 08/20/17 12:16 Venturi Mask 08/20/17 12:00 110 08/20/17 12:00 40.0 08/20/17 12:00 99.4 105 27 115/54 93 Venturi Mask 40 08/20/17 11:00 103 26 143/75 92 Venturi Mask 40 08/20/17 10:26 156/67 08/20/17 10:26 94 156/67 08/20/17 10:00 102 29 156/67 94 Venturi Mask 40 08/20/17 09:00 102 27 151/73 95 Venturi Mask 40 08/20/17 09:00 96 8.0 40 Laboratory Tests 08/20/17 08:30: Thyroid Stimulating Hormone (TSH) 3.070, Free Thyroxine 0.85L 08/21/17 04:45: White Blood Count 5.7, Red Blood Count 2.77L, Hemoglobin 9.4L, Hematocrit 27.2L , Mean Corpuscular Volume 98, Mean Corpuscular Hemoglobin 33.8H, Mean Corpuscular Hemoglobin Concent 34.4, Red Cell Distribution Width 15.2H, Platelet Count 122L, Mean Platelet Volume 7.1, Neutrophils (%) (Auto) , Lymphocytes (%) (Auto) , Monocytes (%) (Auto) , Eosinophils (%) (Auto) , Basophils (%) (Auto) , Sodium Level 143, Potassium Level 3.5, Chloride Level 108H, Carbon Dioxide Level 21, Anion Gap 14, Blood Urea Nitrogen 21, Creatinine 0.4L, Estimat Glomerular Filtration Rate > 60, Glucose Level 145H, Calcium Level 8.4L, Magnesium Level 1.8 08/21/17 07:09: Arterial Blood pH 7.481H, Arterial Blood Partial Pressure CO2 31.9L, Arterial Blood Partial Pressure O2 60.5L, Arterial Blood HCO3 23.3, Arterial Blood Oxygen Saturation 91.9L, Arterial Blood Base Excess 0.2, Adolfo Test Positive Height (Feet): 5 Height (Inches): 3.00 Weight (Pounds): 104 General Appearance: no apparent distress Neck: normal alignment Cardiovascular: normal rate Respiratory/Chest: lungs clear Abdomen: normal bowel sounds Pelvis: normal external exam Edema: no edema noted Arm (L), no edema noted Arm (R), no edema noted Leg (L), no edema noted Leg (R), no edema noted Pedal (L), no edema noted Pedal (R), no edema noted Generalized Objective Current Medications Medications (Trade) Dose Ordered Sig/Adonay Route PRN Reason Start Time Stop Time Status Last Admin Dose Admin Acetaminophen (Tylenol) 650 mg Q6H PRN ORAL Mild Pain/Temp > 100.5 08/19/17 08:00 09/18/17 07:59 08/20/17 20:38 Amlodipine Besylate (Norvasc) 10 mg DAILY ORAL 08/19/17 09:00 09/18/17 08:59 08/20/17 10:26 Ascorbic Acid (Vitamin C) 500 mg DAILY ORAL 08/19/17 09:00 09/18/17 08:59 08/20/17 10:27 Baclofen (Lioresal) 10 mg THREE TIMES A DAY ORAL 08/19/17 09:00 09/18/17 08:59 08/20/17 17:47 Citalopram Hydrobromide (celeXA) 20 mg DAILY ORAL 08/19/17 09:00 09/18/17 08:59 08/20/17 10:26 Clonidine HCl (Catapres) 0.1 mg Q6H PRN ORAL SBP > 160mmHg 08/19/17 08:00 09/18/17 07:59 Dextrose (Dextrose 50%) STAT PRN IV Hypoglycemia 08/20/17 07:30 09/19/17 07:29 Ferrous Sulfate (Feosol) 325 mg DAILY ORAL 08/19/17 09:00 09/18/17 08:59 08/20/17 10:25 Insulin Aspart (NovoLOG) EVERY 4 HOURS SUBQ 08/20/17 09:00 09/19/17 08:59 08/21/17 04:51 Insulin Detemir (Levemir) 15 units Q12HR SUBQ 08/20/17 09:00 09/19/17 08:59 08/20/17 10:41 Levothyroxine Sodium (Synthroid) 75 mcg DAILY@0630 ORAL 08/20/17 07:30 09/19/17 07:29 08/21/17 05:57 Lorazepam (Ativan) 0.5 mg Q8H PRN ORAL For Anxiety 08/19/17 09:00 08/26/17 08:59 Losartan Potassium (Cozaar) 50 mg DAILY ORAL 08/19/17 09:00 09/18/17 08:59 08/20/17 10:26 Morphine Sulfate (Morphine Sulfate) 1 mg Q4H PRN IVP Severe Pain (Pain Scale 7-10) 08/20/17 08:45 08/27/17 08:44 08/21/17 07:50 Multivitamins (Multivitamins) 1 tab DAILY ORAL 08/19/17 09:00 09/18/17 08:59 08/20/17 10:26 Ondansetron HCl (Zofran) 4 mg Q6H PRN ORAL Nausea & Vomiting 08/19/17 08:00 09/18/17 07:59 Oxycodone/ Acetaminophen (Percocet 5-325) 1 tab Q6H PRN ORAL Severe Breakthrough Pain 08/19/17 08:00 10/7/17 07:59 Pantoprazole (Protonix) 40 mg DAILY IVP 08/20/17 09:00 09/19/17 08:59 08/20/17 10:25 Sodium Chloride 1,000 ml @ 150 mls/hr Q6H40M IV 08/19/17 15:15 09/18/17 15:14 08/21/17 06:57 Item Value Date Time Bedside Blood Glucose 144 mg/dl H 08/21/17 0454 Bedside Blood Glucose 141 mg/dl H 08/21/17 0041 Bedside Blood Glucose 89 mg/dl 08/20/17 2045 Bedside Blood Glucose 139 mg/dl H 08/20/17 1750 Bedside Blood Glucose 123 mg/dl H 08/20/17 1345 Bedside Blood Glucose 209 mg/dl H 08/20/17 1045 Bedside Blood Glucose 89 mg/dl 08/20/17 0600 KAYLEE DARNELL Aug 21, 2017 08:14
--- NOTE | 2017-08-21 08:14 | General Progress Note ---
Assessment/Plan Problem List: (1) DKA (diabetic ketoacidoses) ICD Codes: E13.10 - Other specified diabetes mellitus with ketoacidosis without coma SNOMED: 10247089, 464069971 (2) Altered level of consciousness ICD Codes: R40.4 - Transient alteration of awareness SNOMED: 3546365 (3) Hyperkalemia ICD Codes: E87.5 - Hyperkalemia SNOMED: 32710489 (4) Rhabdomyolysis ICD Codes: M62.82 - Rhabdomyolysis SNOMED: 305235633, 718263509 (5) Diabetes mellitus out of control ICD Codes: E11.65 - Type 2 diabetes mellitus with hyperglycemia SNOMED: 724433931, 00408596 (6) Sepsis ICD Codes: A41.9 - Sepsis, unspecified organism SNOMED: 48911924 (7) Hypothyroidism ICD Codes: E03.9 - Hypothyroidism, unspecified SNOMED: 76574703 Assessment/Plan DKA resolved continue Levemir 15 units bid continue Novolog sliding scale ac / hs continue Levothyroxine 75 mcg daily Subjective ROS Limited/Unobtainable: Yes Allergies: Coded Allergies: No Known Allergies (Unverified , 08/18/17) Subjective events noted - interval notes reviewed Objective Last 24 Hour Vital Signs Date Time Temp Pulse Resp B/P (MAP) Pulse Ox O2 Delivery O2 Flow Rate FiO2 08/21/17 07:09 83 18 Venturi Mask 12.0 50 08/21/17 07:09 96 Venturi Mask 12.0 50 08/21/17 07:09 Venturi Mask 12.0 50 08/21/17 07:00 82 21 128/55 93 Venturi Mask 50 08/21/17 06:00 79 21 135/57 95 Venturi Mask 50 08/21/17 05:00 76 22 149/61 95 Venturi Mask 50 08/21/17 04:00 98.4 76 22 131/60 94 Venturi Mask 50 08/21/17 04:00 81 08/21/17 04:00 50.0 08/21/17 03:00 87 23 98/79 93 Venturi Mask 50 08/21/17 02:00 80 21 121/52 98 Venturi Mask 50 08/21/17 01:00 79 20 108/56 95 Venturi Mask 50 08/21/17 00:06 83 08/21/17 00:00 50.0 08/21/17 00:00 98.8 83 21 123/53 95 Venturi Mask 50 08/20/17 23:00 82 20 108/50 95 Venturi Mask 50 08/20/17 22:00 88 21 116/54 96 Venturi Mask 50 08/20/17 21:00 92 23 123/57 96 Venturi Mask 50 08/20/17 20:00 99.1 91 24 139/85 95 Venturi Mask 50 08/20/17 20:00 50.0 08/20/17 19:53 91 08/20/17 19:18 Venturi Mask 12.0 50 08/20/17 19:17 89 21 Venturi Mask 12.0 50 08/20/17 19:17 98 Venturi Mask 12.0 50 08/20/17 19:00 88 24 132/49 94 Venturi Mask 50 08/20/17 18:00 89 25 115/51 92 Venturi Mask 50 08/20/17 17:00 92 25 143/66 91 Venturi Mask 50 08/20/17 16:00 99.4 94 25 152/54 93 Venturi Mask 50 08/20/17 16:00 91 08/20/17 16:00 50.0 08/20/17 15:00 95 26 127/72 91 Venturi Mask 40 08/20/17 14:00 97 26 138/72 91 Venturi Mask 40 08/20/17 13:00 98 24 150/57 92 Venturi Mask 40 08/20/17 12:16 Venturi Mask 08/20/17 12:00 110 08/20/17 12:00 40.0 08/20/17 12:00 99.4 105 27 115/54 93 Venturi Mask 40 08/20/17 11:00 103 26 143/75 92 Venturi Mask 40 08/20/17 10:26 156/67 08/20/17 10:26 94 156/67 08/20/17 10:00 102 29 156/67 94 Venturi Mask 40 08/20/17 09:00 102 27 151/73 95 Venturi Mask 40 08/20/17 09:00 96 8.0 40 Laboratory Tests 08/20/17 08:30: Thyroid Stimulating Hormone (TSH) 3.070, Free Thyroxine 0.85L 08/21/17 04:45: White Blood Count 5.7, Red Blood Count 2.77L, Hemoglobin 9.4L, Hematocrit 27.2L , Mean Corpuscular Volume 98, Mean Corpuscular Hemoglobin 33.8H, Mean Corpuscular Hemoglobin Concent 34.4, Red Cell Distribution Width 15.2H, Platelet Count 122L, Mean Platelet Volume 7.1, Neutrophils (%) (Auto) , Lymphocytes (%) (Auto) , Monocytes (%) (Auto) , Eosinophils (%) (Auto) , Basophils (%) (Auto) , Sodium Level 143, Potassium Level 3.5, Chloride Level 108H, Carbon Dioxide Level 21, Anion Gap 14, Blood Urea Nitrogen 21, Creatinine 0.4L, Estimat Glomerular Filtration Rate > 60, Glucose Level 145H, Calcium Level 8.4L, Magnesium Level 1.8 08/21/17 07:09: Arterial Blood pH 7.481H, Arterial Blood Partial Pressure CO2 31.9L, Arterial Blood Partial Pressure O2 60.5L, Arterial Blood HCO3 23.3, Arterial Blood Oxygen Saturation 91.9L, Arterial Blood Base Excess 0.2, Adolfo Test Positive Height (Feet): 5 Height (Inches): 3.00 Weight (Pounds): 104 General Appearance: no apparent distress Neck: normal alignment Cardiovascular: normal rate Respiratory/Chest: lungs clear Abdomen: normal bowel sounds Pelvis: normal external exam Edema: no edema noted Arm (L), no edema noted Arm (R), no edema noted Leg (L), no edema noted Leg (R), no edema noted Pedal (L), no edema noted Pedal (R), no edema noted Generalized Objective Current Medications Medications (Trade) Dose Ordered Sig/Adonay Route PRN Reason Start Time Stop Time Status Last Admin Dose Admin Acetaminophen (Tylenol) 650 mg Q6H PRN ORAL Mild Pain/Temp > 100.5 08/19/17 08:00 09/18/17 07:59 08/20/17 20:38 Amlodipine Besylate (Norvasc) 10 mg DAILY ORAL 08/19/17 09:00 09/18/17 08:59 08/20/17 10:26 Ascorbic Acid (Vitamin C) 500 mg DAILY ORAL 08/19/17 09:00 09/18/17 08:59 08/20/17 10:27 Baclofen (Lioresal) 10 mg THREE TIMES A DAY ORAL 08/19/17 09:00 09/18/17 08:59 08/20/17 17:47 Citalopram Hydrobromide (celeXA) 20 mg DAILY ORAL 08/19/17 09:00 09/18/17 08:59 08/20/17 10:26 Clonidine HCl (Catapres) 0.1 mg Q6H PRN ORAL SBP > 160mmHg 08/19/17 08:00 09/18/17 07:59 Dextrose (Dextrose 50%) STAT PRN IV Hypoglycemia 08/20/17 07:30 09/19/17 07:29 Ferrous Sulfate (Feosol) 325 mg DAILY ORAL 08/19/17 09:00 09/18/17 08:59 08/20/17 10:25 Insulin Aspart (NovoLOG) EVERY 4 HOURS SUBQ 08/20/17 09:00 09/19/17 08:59 08/21/17 04:51 Insulin Detemir (Levemir) 15 units Q12HR SUBQ 08/20/17 09:00 09/19/17 08:59 08/20/17 10:41 Levothyroxine Sodium (Synthroid) 75 mcg DAILY@0630 ORAL 08/20/17 07:30 09/19/17 07:29 08/21/17 05:57 Lorazepam (Ativan) 0.5 mg Q8H PRN ORAL For Anxiety 08/19/17 09:00 08/26/17 08:59 Losartan Potassium (Cozaar) 50 mg DAILY ORAL 08/19/17 09:00 09/18/17 08:59 08/20/17 10:26 Morphine Sulfate (Morphine Sulfate) 1 mg Q4H PRN IVP Severe Pain (Pain Scale 7-10) 08/20/17 08:45 08/27/17 08:44 08/21/17 07:50 Multivitamins (Multivitamins) 1 tab DAILY ORAL 08/19/17 09:00 09/18/17 08:59 08/20/17 10:26 Ondansetron HCl (Zofran) 4 mg Q6H PRN ORAL Nausea & Vomiting 08/19/17 08:00 09/18/17 07:59 Oxycodone/ Acetaminophen (Percocet 5-325) 1 tab Q6H PRN ORAL Severe Breakthrough Pain 08/19/17 08:00 10/7/17 07:59 Pantoprazole (Protonix) 40 mg DAILY IVP 08/20/17 09:00 09/19/17 08:59 08/20/17 10:25 Sodium Chloride 1,000 ml @ 150 mls/hr Q6H40M IV 08/19/17 15:15 09/18/17 15:14 08/21/17 06:57 Item Value Date Time Bedside Blood Glucose 144 mg/dl H 08/21/17 0454 Bedside Blood Glucose 141 mg/dl H 08/21/17 0041 Bedside Blood Glucose 89 mg/dl 08/20/17 2045 Bedside Blood Glucose 139 mg/dl H 08/20/17 1750 Bedside Blood Glucose 123 mg/dl H 08/20/17 1345 Bedside Blood Glucose 209 mg/dl H 08/20/17 1045 Bedside Blood Glucose 89 mg/dl 08/20/17 0600 KAYLEE DARNELL Aug 21, 2017 08:14
[2017-08-21] MEDS: Levemir Flexpen SUBQ SCH ×2 (08:17→21:06)
--- NOTE | 2017-08-21 08:31 | Consultation ---
DATE OF CONSULTATION: 08/20/2017 ENDOCRINE CONSULTATION CONSULTING PHYSICIAN: Caio Andrade M.D. REFERRING PHYSICIAN: Petrona Bonds D.O. REASON FOR CONSULTATION: Management of DKA. History of Present Illness: hx is obtained from review of medical records. The patient is lethargic, she is not able to provide any meaningful history. The patient is a 67-year-old female who was admitted to the hospital on 08/18/2017, [facility] with altered level of consciousness and prior history of chronic pain. The patient was given Narcan by EMS without any improvement. Apparently, medication was given to treat the fractured tailbone. She was also having vomiting. Apparently, the patient has a history of type 1 diabetes and treated with insulin pump therapy at the floor. Laboratory values yesterday revealed anion gap of 24 with a prior gap of 10. The patient was transferred to the ICU and started on insulin drip. Additionally, the lactic acid level was positive. Endocrinology was consulted in order to assist in the management of diabetes. PAST MEDICAL HISTORY: 1. Type 1 diabetes. 2. Tailbone fracture. 3. Hypertension. 4. Hypothyroidism. 5. Osteoporosis. SOCIAL HISTORY: Lives in a [facility] facility for now. FAMILY HISTORY: Noncontributory. REVIEW OF SYSTEMS: Unobtainable. PHYSICAL EXAMINATION: GENERAL: The patient is lethargic. Vital Signs: Blood pressure 148/65, pulse of 88, respiratory rate 27, and temperature of 98.7. HEENT: Pupils are equal and reactive to light. Sclerae anicteric. NECK: No JVD. No thyromegaly. LUNGS: Clear. HEART: Regular rate and rhythm. ABDOMEN: Positive bowel sounds. Soft. EXTREMITIES: No clubbing, cyanosis, or edema. RADIOGRAPHIC STUDIES: Difficult to obtain. Laboratory Data: Sodium 151, potassium 3.7, chloride 116, bicarbonate 30, BUN 15, creatinine 0.7 and glucose level 101. Lactic acid 2.8. DIAGNOSES: 1. Diabetic ketoacidosis, resolved. 2. Hypothyroidism. 3. Acute kidney injury. 4. Lactic acidosis. PLAN: 1. Continue IV hydration, will DC insulin drip since AG is closed now 2. Start Levemir 15 units b.i.d. 3. Start NovoLog sliding scale every four hours. 4. Starting diet is pending at the time of my evaluation. 5. Resume levothyroxine 75 mcg. Check thyroid function tests. Thank you, Dr. Bonds for the courtesy of this consultation. Caio Andrade M.D. DR: GRUPO JOB#: [id number] CC: ROSANA
--- NOTE | 2017-08-21 08:31 | Consultation ---
DATE OF CONSULTATION: 08/20/2017 ENDOCRINE CONSULTATION CONSULTING PHYSICIAN: Caio Andrade M.D. REFERRING PHYSICIAN: Petrona Bonds D.O. REASON FOR CONSULTATION: Management of DKA. History of Present Illness: hx is obtained from review of medical records. The patient is lethargic, she is not able to provide any meaningful history. The patient is a 67-year-old female who was admitted to the hospital on 08/18/2017, [facility] with altered level of consciousness and prior history of chronic pain. The patient was given Narcan by EMS without any improvement. Apparently, medication was given to treat the fractured tailbone. She was also having vomiting. Apparently, the patient has a history of type 1 diabetes and treated with insulin pump therapy at the floor. Laboratory values yesterday revealed anion gap of 24 with a prior gap of 10. The patient was transferred to the ICU and started on insulin drip. Additionally, the lactic acid level was positive. Endocrinology was consulted in order to assist in the management of diabetes. PAST MEDICAL HISTORY: 1. Type 1 diabetes. 2. Tailbone fracture. 3. Hypertension. 4. Hypothyroidism. 5. Osteoporosis. SOCIAL HISTORY: Lives in a senior care facility for now. FAMILY HISTORY: Noncontributory. REVIEW OF SYSTEMS: Unobtainable. PHYSICAL EXAMINATION: GENERAL: The patient is lethargic. Vital Signs: Blood pressure 148/65, pulse of 88, respiratory rate 27, and temperature of 98.7. HEENT: Pupils are equal and reactive to light. Sclerae anicteric. NECK: No JVD. No thyromegaly. LUNGS: Clear. HEART: Regular rate and rhythm. ABDOMEN: Positive bowel sounds. Soft. EXTREMITIES: No clubbing, cyanosis, or edema. RADIOGRAPHIC STUDIES: Difficult to obtain. Laboratory Data: Sodium 151, potassium 3.7, chloride 116, bicarbonate 30, BUN 15, creatinine 0.7 and glucose level 101. Lactic acid 2.8. DIAGNOSES: 1. Diabetic ketoacidosis, resolved. 2. Hypothyroidism. 3. Acute kidney injury. 4. Lactic acidosis. PLAN: 1. Continue IV hydration, will DC insulin drip since AG is closed now 2. Start Levemir 15 units b.i.d. 3. Start NovoLog sliding scale every four hours. 4. Starting diet is pending at the time of my evaluation. 5. Resume levothyroxine 75 mcg. Check thyroid function tests. Thank you, Dr. Bonds for the courtesy of this consultation. Caio Andrade M.D. DR: GRUPO JOB#: [id number] CC: ROSANA
--- NOTE | 2017-08-21 08:31 | Consultation ---
DATE OF CONSULTATION: 08/20/2017 ENDOCRINE CONSULTATION CONSULTING PHYSICIAN: Caio Andrade M.D. REFERRING PHYSICIAN: Petrona Bonds D.O. REASON FOR CONSULTATION: Management of DKA. History of Present Illness: hx is obtained from review of medical records. The patient is lethargic, she is not able to provide any meaningful history. The patient is a 67-year-old female who was admitted to the hospital on 08/18/2017, from a long term with altered level of consciousness and prior history of chronic pain. The patient was given Narcan by EMS without any improvement. Apparently, medication was given to treat the fractured tailbone. She was also having vomiting. Apparently, the patient has a history of type 1 diabetes and treated with insulin pump therapy at the floor. Laboratory values yesterday revealed anion gap of 24 with a prior gap of 10. The patient was transferred to the ICU and started on insulin drip. Additionally, the lactic acid level was positive. Endocrinology was consulted in order to assist in the management of diabetes. PAST MEDICAL HISTORY: 1. Type 1 diabetes. 2. Tailbone fracture. 3. Hypertension. 4. Hypothyroidism. 5. Osteoporosis. SOCIAL HISTORY: Lives in a nursing home facility for now. FAMILY HISTORY: Noncontributory. REVIEW OF SYSTEMS: Unobtainable. PHYSICAL EXAMINATION: GENERAL: The patient is lethargic. Vital Signs: Blood pressure 148/65, pulse of 88, respiratory rate 27, and temperature of 98.7. HEENT: Pupils are equal and reactive to light. Sclerae anicteric. NECK: No JVD. No thyromegaly. LUNGS: Clear. HEART: Regular rate and rhythm. ABDOMEN: Positive bowel sounds. Soft. EXTREMITIES: No clubbing, cyanosis, or edema. RADIOGRAPHIC STUDIES: Difficult to obtain. Laboratory Data: Sodium 151, potassium 3.7, chloride 116, bicarbonate 30, BUN 15, creatinine 0.7 and glucose level 101. Lactic acid 2.8. DIAGNOSES: 1. Diabetic ketoacidosis, resolved. 2. Hypothyroidism. 3. Acute kidney injury. 4. Lactic acidosis. PLAN: 1. Continue IV hydration, will DC insulin drip since AG is closed now 2. Start Levemir 15 units b.i.d. 3. Start NovoLog sliding scale every four hours. 4. Starting diet is pending at the time of my evaluation. 5. Resume levothyroxine 75 mcg. Check thyroid function tests. Thank you, Dr. Bonds for the courtesy of this consultation. Caio Andrade M.D. DR: GRUPO JOB#: [id number] CC: ROSANA
[2017-08-21 09:35] LABS: AMYLASE 21 U/L (10-110)
[2017-08-21] MEDS ORDERED: cefTRIAXone 1 GM in D5W 55 ML IVPB SCH (10:00)
[2017-08-21] MEDS ORDERED: 1/2 NS 1000ml IV ONE (10:20)
[2017-08-21] MEDS ORDERED: Sterile Water Irrig 1000ml IRRIG ONE (10:20)
[2017-08-21] MEDS ORDERED: Tubing IV Secondary IV ONE (10:20)
--- NOTE | 2017-08-21 11:09 | Diagnostic Imaging Report ---
Indication: NG tube Comparison: None Single view of the abdomen obtained NG tube is projected over the stomach appears to be in good position. The aorta is ectatic and moderately calcified. There is a right iliac stent. Bones are osteopenic. Bowel gas pattern is nonspecific. Diffuse interstitial opacities noted within the visualized lungs Impression: NG tube in good position. Other findings as above
--- NOTE | 2017-08-21 11:41 | Diagnostic Imaging Report ---
Indication: Dyspnea Comparison: 08/18/17 A single view chest radiograph was obtained. Findings: Scattered interstitial opacities appear worse compared to the previous exam. Heart size remains normal. Findings could be due to pneumonitis or infection. Interstitial edema is possible. The Impression: Worsening infiltrates. These appear primarily interstitial
--- NOTE | 2017-08-21 13:24 | Pulmonolgy Critical Care Note ---
Critical Care - Asmt/Plan Assessment/Plan: DKA, resolved uti, rx ceftriaxone sepsis htn anxiety, depression chronic pain on meds, dc IV Morphine AMS, improved but still confused lactic acidosis respiratory failure dc BiPAP to [facility] rx UTI, sepsis DM rx per Dr Andrade Disposition: transfer to - [facility] Discussed with: nurses Critical Care - Objective Last 24 Hour Vital Signs Date Time Temp Pulse Resp B/P (MAP) Pulse Ox O2 Delivery O2 Flow Rate FiO2 08/21/17 13:00 80 22 121/57 93 Venturi Mask 50 08/21/17 12:00 98.4 81 21 121/57 94 Venturi Mask 50 08/21/17 12:00 86 08/21/17 11:00 84 21 123/66 93 Venturi Mask 50 08/21/17 10:00 86 21 138/54 93 Venturi Mask 50 08/21/17 09:00 89 21 124/61 93 Venturi Mask 50 08/21/17 08:20 98.4 08/21/17 08:12 117/69 08/21/17 08:12 79 117/62 08/21/17 08:00 81 08/21/17 08:00 98.4 76 21 117/62 94 Venturi Mask 50 08/21/17 07:09 83 18 Venturi Mask 12.0 50 08/21/17 07:09 96 Venturi Mask 12.0 50 08/21/17 07:09 Venturi Mask 12.0 50 08/21/17 07:00 82 21 128/55 93 Venturi Mask 50 08/21/17 06:00 79 21 135/57 95 Venturi Mask 50 08/21/17 05:00 76 22 149/61 95 Venturi Mask 50 08/21/17 04:00 98.4 76 22 131/60 94 Venturi Mask 50 08/21/17 04:00 81 08/21/17 04:00 50.0 08/21/17 03:00 87 23 98/79 93 Venturi Mask 50 08/21/17 02:00 80 21 121/52 98 Venturi Mask 50 08/21/17 01:00 79 20 108/56 95 Venturi Mask 50 08/21/17 00:06 83 08/21/17 00:00 50.0 08/21/17 00:00 98.8 83 21 123/53 95 Venturi Mask 50 08/20/17 23:00 82 20 108/50 95 Venturi Mask 50 08/20/17 22:00 88 21 116/54 96 Venturi Mask 50 08/20/17 21:00 92 23 123/57 96 Venturi Mask 50 08/20/17 20:00 99.1 91 24 139/85 95 Venturi Mask 50 08/20/17 20:00 50.0 08/20/17 19:53 91 08/20/17 19:18 Venturi Mask 12.0 50 08/20/17 19:17 89 21 Venturi Mask 12.0 50 08/20/17 19:17 98 Venturi Mask 12.0 50 08/20/17 19:00 88 24 132/49 94 Venturi Mask 50 08/20/17 18:00 89 25 115/51 92 Venturi Mask 50 08/20/17 17:00 92 25 143/66 91 Venturi Mask 50 08/20/17 16:00 99.4 94 25 152/54 93 Venturi Mask 50 08/20/17 16:00 91 08/20/17 16:00 50.0 08/20/17 15:00 95 26 127/72 91 Venturi Mask 40 08/20/17 14:00 97 26 138/72 91 Venturi Mask 40 Status: awake - confused HEENT: atraumatic Neck: full ROM Lungs: clear Heart: HR/BP stable Abdomen: soft, non-tender, active bowel sounds Extremities: no C/C/E Micro: Microbiology Date/Time Source Procedure Growth Status 08/18/17 15:50 Blood Blood Culture - Preliminary NO GROWTH AFTER 48 HOURS Resulted 08/18/17 15:40 Blood Blood Culture - Preliminary NO GROWTH AFTER 48 HOURS Resulted 08/18/17 21:45 Nasal Nares MRSA Culture - Final NO METHICILLIN RESISTANT STAPH AUREUS... Complete 08/19/17 20:20 Indwelling Cath Urine Culture - Preliminary NO GROWTH AFTER 24 HOURS Resulted 08/18/17 15:40 Urine,Clean Catch Urine Culture - Final Klebsiella Pneumoniae Complete 08/19/17 07:00 Buttock Left Gram Stain - Final Resulted 08/19/17 07:00 Wound Culture - Preliminary Staphylococcus Sp Coag Neg Resulted 08/18/17 21:45 Rectum VRE Culture - Final NO VANCOMYCIN RESISTANT ENTEROCOCCUS ... Complete Accucheck: 141 Critical Care - Subjective ROS Limited/Unobtainable: Yes Condition: improving EKG Rhythm: Sinus Rhythm FI02: 50 Vent Support Mode: BiLevel Sputum Amount: None Tube Feeding Amount: 0 I&O: Intake and Output 08/21/17 08/22/17 19:00 07:00 Intake Total 35 ml Output Total 290 ml Balance -255 ml Tube Feeding 35 ml Output Urine Total 290 ml # Bowel Movements 1 PATRICIA LUGO Aug 21, 2017 13:24
--- NOTE | 2017-08-21 13:29 | Wound Care Consultation ---
Wound Assessment Wound Assessment #1: Wound Number: 1 Wound Present on Admission: Yes New Wound: No Status Change of Wound: No Wound Location Body Site Modif: right, mid Wound Location Body Site: sacral Wound Type: pressure ulcer Kimberli Test: Does not Kimberli Pressure Ulcer Stage: II - two sites that with DTI on surrounding skin. Wound Thickness: Partial Thickness Wound Length: 6.0 Wound Width: 9.5 Wound Depth: 0.1 Percent of Wound [place]/Red: 100 Wound Drainage Odor: None/Absent Tissue Surrounding Wound: DTI Wound General Appearance: Reddened, Draining Wound Assessment #2: Wound Number: 2 Wound Present on Admission: Yes New Wound: No Status Change of Wound: No Wound Location Body Site Modif: left Wound Location Body Site: heel Wound Type: pressure ulcer Kimberli Test: Does not Kimberli Pressure Ulcer Stage: deep tissue injury Wound Thickness: Full Thickness Wound Length: 4.0 Wound Width: 3.5 Wound Depth: utd Percent of Wound Purple/Maroon: 100 Wound Drainage Amount: None Wound Drainage Odor: None/Absent Tissue Surrounding Wound: Erythemic Wound General Appearance: Reddened - purple Wound Assessment #3: Wound Number: 3 Wound Present on Admission: Yes New Wound: No Status Change of Wound: No Wound Location Body Site Modif: right Wound Location Body Site: heel Wound Type: pressure ulcer Kimberli Test: Does not Kimberli Pressure Ulcer Stage: deep tissue injury Wound Thickness: Full Thickness Wound Length: 4.0 Wound Width: 3.5 Wound Depth: utd Percent of Wound Purple/Maroon: 100 Wound Drainage Amount: None Wound Drainage Odor: None/Absent Tissue Surrounding Wound: Erythemic Wound General Appearance: Reddened - purple Wound Assessment #4: Wound Number: 4 Wound Present on Admission: Yes New Wound: No Status Change of Wound: No Wound Location Body Site Modif: right Wound Location Body Site: trochanter Wound Type: pressure ulcer Kimberli Test: Does not Kimberli Pressure Ulcer Stage: deep tissue injury Wound Thickness: Full Thickness Wound Length: 4.5 Wound Width: 2.5 Wound Depth: utd Percent of Wound Purple/Maroon: 100 Wound Drainage Amount: None Wound Drainage Odor: None/Absent Tissue Surrounding Wound: Erythemic Wound General Appearance: Reddened - purple Wound Assessment #5: Wound Number: 5 Wound Present on Admission: Yes New Wound: No Status Change of Wound: No Wound Location Body Site Modif: left Wound Location Body Site: trochanter Wound Type: pressure ulcer Kimberli Test: Does not Kimberli Pressure Ulcer Stage: deep tissue injury Wound Thickness: Full Thickness Wound Length: 2.5 Wound Width: 2.5 Wound Depth: utd Percent of Wound Purple/Maroon: 100 Wound Drainage Amount: None Wound Drainage Odor: None/Absent Tissue Surrounding Wound: Erythemic Wound General Appearance: Reddened - purple Wound Assessment #6: Wound Number: 6 Wound Present on Admission: Yes New Wound: No Status Change of Wound: No Wound Location Body Site Modif: right Wound Location Body Site: ischial tuberosity Wound Type: pressure ulcer Kimberli Test: Does not Kimberli Pressure Ulcer Stage: I Wound Length: 2.5 Wound Width: 2.5 Percent of Wound [place]/Red: 100 Wound Drainage Amount: None Wound Drainage Odor: None/Absent Tissue Surrounding Wound: Erythemic Wound General Appearance: Reddened Wound Assessment #7: Wound Number: 7 Wound Present on Admission: Yes New Wound: No Status Change of Wound: No Wound Location Body Site Modif: left Wound Location Body Site: ischial tuberosity Wound Type: pressure ulcer Kimberli Test: Does not Kimberli Pressure Ulcer Stage: I Wound Thickness: Partial Thickness Wound Length: 2.5 Wound Width: 2.5 Percent of Wound [place]/Red: 100 Wound Drainage Amount: None Wound Drainage Odor: None/Absent Tissue Surrounding Wound: Erythemic Wound General Appearance: Reddened Wound Comment #1 Mid and right sacral area stage II pressure ulcer and surrounding skin DTI #2 Left heel DTI pressure ulcer #3 Right heel DTI pressure ulcer #4 Right trochanter DTI pressure ulcer #5 Left trochanter DTI pressure ulcer #6 Right ischial tuberosity stage I pressure ulcer #7 Left ischial tuberosity stage I pressure ulcer Recommendation -Local wound care per protocol -Keep clean and dry -Turn and reposition -Offload both heels -Heel protector on both heels -Optimize nutrition -Low air loss mattress on both heels -assess and f/u accordingly for any changes ARTIS WILKES RN Aug 21, 2017 13:28
[2017-08-21] MEDS ORDERED: LORazepam 0.5mg tab ORAL PRN (20:00)
[2017-08-21] MEDS: oxyCODONE HCL/Acetaminophen 5/325mg ORAL PRN (20:12)
[2017-08-22] VITALS (7 sets, daily range): BP systolic 106–143; BP diastolic 60–92
[2017-08-22] MEDS: NovoLOG Insulin Flexpen SUBQ SCH ×6 (01:00→22:05)
[2017-08-22] MEDS: oxyCODONE HCL/Acetaminophen 5/325mg ORAL PRN ×3 (02:17→22:46)
[2017-08-22 06:10] LABS: BASOPHILS % (AUTO) 0.7 % (0.0-2.0); EOSINOPHILS % (AUTO) 1.5 % (0.0-3.0); HEMATOCRIT 26.4 % (37.0-47.0); HEMOGLOBIN 8.9 G/DL (12.0-16.0); MEAN CORPUSCULAR VOLUME 99 FL (80-99); MONOCYTES % (AUTO) 4.6 % (1.0-10.0); NEUTROPHILS % (AUTO) 82.2 % (45.0-75.0); PLATELET COUNT 104 K/UL (150-450); RED BLOOD COUNT 2.65 M/UL (4.20-5.40); RED CELL DISTRIBUTION WIDTH 15.1 % (11.6-14.8); WHITE BLOOD COUNT 5.7 K/UL (4.8-10.8)
[2017-08-22 06:34] LABS: ALANINE AMINOTRANSFERASE 29 U/L (3-33); ALBUMIN 1.7 g/dL (3.5-5.2); ALBUMIN/GLOBULIN RATIO 0.4 (1.0-2.7); ALKALINE PHOSPHATASE 109 U/L (35-104); ANION GAP 15 (5-15); ASPARTATE AMINO TRANSFERASE 91 U/L (5-40); BILIRUBIN,TOTAL 0.4 mg/dL (0.0-1.2); BLOOD UREA NITROGEN 10 mg/dL (7-23); CARBON DIOXIDE 22 mEQ/L (20-30); CHLORIDE 104 mEQ/L (98-107); CREATININE 0.4 mg/dL (0.5-0.9); SODIUM 141 mEQ/L (135-145)
[2017-08-22 06:38] LABS: POTASSIUM 2.7 mEQ/L (3.4-4.9)
[2017-08-22] MEDS: KCl 10% 40mEq/30ml liquid NG SCH ×3 (07:58→12:19)
[2017-08-22] MEDS: Pantoprazole Inj IVP SCH (08:50)
[2017-08-22] MEDS ORDERED: Ascorbic Acid 500mg tab ORAL SCH (09:00)
[2017-08-22] MEDS: Levemir Flexpen SUBQ SCH (09:00)
[2017-08-22] MEDS ORDERED: Losartan 50mg tab ORAL SCH (09:00)
[2017-08-22] MEDS: Citalopram Hydrobromide 10mg Tab ORAL SCH (09:00)
--- NOTE | 2017-08-22 09:06 | General Progress Note ---
Assessment/Plan Problem List: (1) DKA (diabetic ketoacidoses) ICD Codes: E13.10 - Other specified diabetes mellitus with ketoacidosis without coma SNOMED: 13023048, 209141663 (2) Altered level of consciousness ICD Codes: R40.4 - Transient alteration of awareness SNOMED: 2704793 (3) Hyperkalemia ICD Codes: E87.5 - Hyperkalemia SNOMED: 07584597 (4) Rhabdomyolysis ICD Codes: M62.82 - Rhabdomyolysis SNOMED: 260992377, 994425823 (5) Diabetes mellitus out of control ICD Codes: E11.65 - Type 2 diabetes mellitus with hyperglycemia SNOMED: 646402983, 75345041 (6) Sepsis ICD Codes: A41.9 - Sepsis, unspecified organism SNOMED: 65292847 (7) Hypothyroidism ICD Codes: E03.9 - Hypothyroidism, unspecified SNOMED: 98400090 Assessment/Plan continue Levemir 15 units bid continue Novolog sliding scale ac / hs TF is tolerated continue Levothyroxine 75 mcg daily Subjective ROS Limited/Unobtainable: Yes Allergies: Coded Allergies: No Known Allergies (Unverified , 08/18/17) Subjective events noted - interval notes reviewed transferred out of ICU Objective Last 24 Hour Vital Signs Date Time Temp Pulse Resp B/P (MAP) Pulse Ox O2 Delivery O2 Flow Rate FiO2 08/22/17 08:51 143/69 08/22/17 08:51 78 143/69 08/22/17 07:58 98.1 78 22 143/69 92 Venturi Mask 10.0 50 08/22/17 04:00 98.3 75 18 136/60 92 Venturi Mask 8.0 08/22/17 04:00 77 08/22/17 03:16 98.1 08/22/17 00:00 98.1 72 20 128/69 93 Venturi Mask 8.0 08/22/17 00:00 73 08/21/17 20:29 94 Venturi Mask 12.0 50 08/21/17 20:29 Venturi Mask 12.0 50 08/21/17 20:28 95 18 Venturi Mask 12.0 50 08/21/17 20:15 94 Venturi Mask 8.0 08/21/17 20:03 90 08/21/17 20:00 82 08/21/17 20:00 97.4 85 20 134/58 82 Venturi Mask 8.0 08/21/17 18:00 80 22 132/61 93 Venturi Mask 50 08/21/17 17:00 84 22 140/54 93 Venturi Mask 50 08/21/17 16:00 70 08/21/17 16:00 98.2 81 20 127/57 94 Venturi Mask 50 08/21/17 15:00 74 22 103/52 93 Venturi Mask 50 08/21/17 14:03 98.4 08/21/17 14:00 75 22 133/63 93 Venturi Mask 50 08/21/17 13:00 80 22 121/57 93 Venturi Mask 50 08/21/17 12:00 98.4 81 21 121/57 94 Venturi Mask 50 08/21/17 12:00 86 08/21/17 11:00 84 21 123/66 93 Venturi Mask 50 08/21/17 10:00 86 21 138/54 93 Venturi Mask 50 Laboratory Tests 08/22/17 04:00: White Blood Count 5.7, Red Blood Count 2.65L, Hemoglobin 8.9L, Hematocrit 26.4L , Mean Corpuscular Volume 99, Mean Corpuscular Hemoglobin 33.7H, Mean Corpuscular Hemoglobin Concent 33.9, Red Cell Distribution Width 15.1H, Platelet Count 104L, Mean Platelet Volume 6.8, Neutrophils (%) (Auto) 82.2H, Lymphocytes (%) (Auto) 11.0L, Monocytes (%) (Auto) 4.6, Eosinophils (%) (Auto) 1.5, Basophils (%) (Auto) 0.7, Sodium Level 141, Potassium Level 2.7*L, Chloride Level 104, Carbon Dioxide Level 22, Anion Gap 15, Blood Urea Nitrogen 10, Creatinine 0.4L, Estimat Glomerular Filtration Rate > 60, Glucose Level 64L , Calcium Level 8.0L, Total Bilirubin 0.4, Aspartate Amino Transf (AST/SGOT) 91H , Alanine Aminotransferase (ALT/SGPT) 29, Alkaline Phosphatase 109H, Pro-B-Type Natriuretic Peptide 1834H, Total Protein 5.3L, Albumin 1.7L, Globulin 3.6, Albumin/Globulin Ratio 0.4L Height (Feet): 5 Height (Inches): 3.00 Weight (Pounds): 104 General Appearance: no apparent distress Neck: normal alignment Cardiovascular: normal rate Respiratory/Chest: decreased breath sounds Abdomen: normal bowel sounds Edema: no edema noted Arm (L), no edema noted Arm (R), no edema noted Leg (L), no edema noted Leg (R), no edema noted Pedal (L), no edema noted Pedal (R), no edema noted Generalized Objective Current Medications Medications (Trade) Dose Ordered Sig/Adonay Route PRN Reason Start Time Stop Time Status Last Admin Dose Admin Acetaminophen (Tylenol) 650 mg Q6H PRN ORAL Mild Pain/Temp > 100.5 08/21/17 20:00 09/18/17 07:59 Amlodipine Besylate (Norvasc) 10 mg DAILY ORAL 08/22/17 09:00 09/18/17 08:59 08/22/17 08:51 Ascorbic Acid (Vitamin C) 500 mg DAILY ORAL 08/22/17 09:00 09/18/17 08:59 08/22/17 08:50 Baclofen (Lioresal) 10 mg THREE TIMES A DAY ORAL 08/22/17 09:00 09/18/17 08:59 08/22/17 08:50 Ceftriaxone Sodium 1 gm/ Sodium Chloride 55 ml @ 110 mls/hr Q24H IVPB 08/22/17 10:00 08/29/17 09:59 Citalopram Hydrobromide (celeXA) 20 mg DAILY ORAL 08/22/17 09:00 09/18/17 08:59 08/22/17 09:00 Clonidine HCl (Catapres) 0.1 mg Q6H PRN ORAL SBP > 160mmHg 08/21/17 20:00 09/18/17 07:59 Dextrose (Dextrose 50%) STAT PRN IV Hypoglycemia 08/21/17 20:00 09/20/17 19:59 08/22/17 05:23 Ferrous Sulfate (Feosol) 325 mg DAILY ORAL 08/22/17 09:00 09/18/17 08:59 08/22/17 08:50 Insulin Aspart (NovoLOG) EVERY 4 HOURS SUBQ 08/21/17 21:00 09/19/17 08:59 08/21/17 21:05 Insulin Detemir (Levemir) 15 units Q12HR SUBQ 08/21/17 21:00 09/19/17 08:59 08/21/17 21:06 Levothyroxine Sodium (Synthroid) 75 mcg ACBREAKFAST ORAL 08/22/17 06:30 09/21/17 06:29 08/22/17 06:00 Lorazepam (Ativan) 0.5 mg Q8H PRN ORAL For Anxiety 08/21/17 20:00 08/28/17 19:59 Losartan Potassium (Cozaar) 50 mg DAILY ORAL 08/22/17 09:00 09/18/17 08:59 08/22/17 08:51 Multivitamins (Multivitamins) 1 tab DAILY ORAL 08/22/17 09:00 09/18/17 08:59 08/22/17 08:50 Ondansetron HCl (Zofran) 4 mg Q6H PRN ORAL Nausea & Vomiting 08/21/17 20:00 09/18/17 07:59 Oxycodone/ Acetaminophen (Percocet 5-325) 1 tab Q6H PRN ORAL Severe Breakthrough Pain 08/21/17 20:00 08/26/17 07:59 08/22/17 08:54 Pantoprazole (Protonix) 40 mg DAILY IVP 08/22/17 09:00 09/19/17 08:59 08/22/17 08:50 Potassium Chloride (KCl 10% 40mEq Oral solution) 40 meq EVERY 2 HOURS NG 08/22/17 08:00 08/22/17 12:01 08/22/17 07:58 Sodium Chloride 1,000 ml @ 150 mls/hr Q6H40M IV 08/21/17 20:30 09/18/17 20:29 08/22/17 04:48 Item Value Date Time Bedside Blood Glucose 166 mg/dl H 08/22/17 0559 Bedside Blood Glucose 126 mg/dl H 08/22/17 0218 Bedside Blood Glucose 112 mg/dl 08/21/17 2106 Bedside Blood Glucose 109 mg/dl 08/21/17 1616 Bedside Blood Glucose 141 mg/dl H 08/21/17 1305 Bedside Blood Glucose 145 mg/dl H 08/21/17 0817 Bedside Blood Glucose 144 mg/dl H 08/21/17 0454 KAYLEE DARNELL Aug 22, 2017 09:06
--- NOTE | 2017-08-22 09:06 | General Progress Note ---
Assessment/Plan Problem List: (1) DKA (diabetic ketoacidoses) ICD Codes: E13.10 - Other specified diabetes mellitus with ketoacidosis without coma SNOMED: 50227019, 652311599 (2) Altered level of consciousness ICD Codes: R40.4 - Transient alteration of awareness SNOMED: 9856772 (3) Hyperkalemia ICD Codes: E87.5 - Hyperkalemia SNOMED: 42761977 (4) Rhabdomyolysis ICD Codes: M62.82 - Rhabdomyolysis SNOMED: 258390674, 407251117 (5) Diabetes mellitus out of control ICD Codes: E11.65 - Type 2 diabetes mellitus with hyperglycemia SNOMED: 720581880, 87443341 (6) Sepsis ICD Codes: A41.9 - Sepsis, unspecified organism SNOMED: 56512955 (7) Hypothyroidism ICD Codes: E03.9 - Hypothyroidism, unspecified SNOMED: 60598058 Assessment/Plan continue Levemir 15 units bid continue Novolog sliding scale ac / hs TF is tolerated continue Levothyroxine 75 mcg daily Subjective ROS Limited/Unobtainable: Yes Allergies: Coded Allergies: No Known Allergies (Unverified , 08/18/17) Subjective events noted - interval notes reviewed transferred out of ICU Objective Last 24 Hour Vital Signs Date Time Temp Pulse Resp B/P (MAP) Pulse Ox O2 Delivery O2 Flow Rate FiO2 08/22/17 08:51 143/69 08/22/17 08:51 78 143/69 08/22/17 07:58 98.1 78 22 143/69 92 Venturi Mask 10.0 50 08/22/17 04:00 98.3 75 18 136/60 92 Venturi Mask 8.0 08/22/17 04:00 77 08/22/17 03:16 98.1 08/22/17 00:00 98.1 72 20 128/69 93 Venturi Mask 8.0 08/22/17 00:00 73 08/21/17 20:29 94 Venturi Mask 12.0 50 08/21/17 20:29 Venturi Mask 12.0 50 08/21/17 20:28 95 18 Venturi Mask 12.0 50 08/21/17 20:15 94 Venturi Mask 8.0 08/21/17 20:03 90 08/21/17 20:00 82 08/21/17 20:00 97.4 85 20 134/58 82 Venturi Mask 8.0 08/21/17 18:00 80 22 132/61 93 Venturi Mask 50 08/21/17 17:00 84 22 140/54 93 Venturi Mask 50 08/21/17 16:00 70 08/21/17 16:00 98.2 81 20 127/57 94 Venturi Mask 50 08/21/17 15:00 74 22 103/52 93 Venturi Mask 50 08/21/17 14:03 98.4 08/21/17 14:00 75 22 133/63 93 Venturi Mask 50 08/21/17 13:00 80 22 121/57 93 Venturi Mask 50 08/21/17 12:00 98.4 81 21 121/57 94 Venturi Mask 50 08/21/17 12:00 86 08/21/17 11:00 84 21 123/66 93 Venturi Mask 50 08/21/17 10:00 86 21 138/54 93 Venturi Mask 50 Laboratory Tests 08/22/17 04:00: White Blood Count 5.7, Red Blood Count 2.65L, Hemoglobin 8.9L, Hematocrit 26.4L , Mean Corpuscular Volume 99, Mean Corpuscular Hemoglobin 33.7H, Mean Corpuscular Hemoglobin Concent 33.9, Red Cell Distribution Width 15.1H, Platelet Count 104L, Mean Platelet Volume 6.8, Neutrophils (%) (Auto) 82.2H, Lymphocytes (%) (Auto) 11.0L, Monocytes (%) (Auto) 4.6, Eosinophils (%) (Auto) 1.5, Basophils (%) (Auto) 0.7, Sodium Level 141, Potassium Level 2.7*L, Chloride Level 104, Carbon Dioxide Level 22, Anion Gap 15, Blood Urea Nitrogen 10, Creatinine 0.4L, Estimat Glomerular Filtration Rate > 60, Glucose Level 64L , Calcium Level 8.0L, Total Bilirubin 0.4, Aspartate Amino Transf (AST/SGOT) 91H , Alanine Aminotransferase (ALT/SGPT) 29, Alkaline Phosphatase 109H, Pro-B-Type Natriuretic Peptide 1834H, Total Protein 5.3L, Albumin 1.7L, Globulin 3.6, Albumin/Globulin Ratio 0.4L Height (Feet): 5 Height (Inches): 3.00 Weight (Pounds): 104 General Appearance: no apparent distress Neck: normal alignment Cardiovascular: normal rate Respiratory/Chest: decreased breath sounds Abdomen: normal bowel sounds Edema: no edema noted Arm (L), no edema noted Arm (R), no edema noted Leg (L), no edema noted Leg (R), no edema noted Pedal (L), no edema noted Pedal (R), no edema noted Generalized Objective Current Medications Medications (Trade) Dose Ordered Sig/Adonay Route PRN Reason Start Time Stop Time Status Last Admin Dose Admin Acetaminophen (Tylenol) 650 mg Q6H PRN ORAL Mild Pain/Temp > 100.5 08/21/17 20:00 09/18/17 07:59 Amlodipine Besylate (Norvasc) 10 mg DAILY ORAL 08/22/17 09:00 09/18/17 08:59 08/22/17 08:51 Ascorbic Acid (Vitamin C) 500 mg DAILY ORAL 08/22/17 09:00 09/18/17 08:59 08/22/17 08:50 Baclofen (Lioresal) 10 mg THREE TIMES A DAY ORAL 08/22/17 09:00 09/18/17 08:59 08/22/17 08:50 Ceftriaxone Sodium 1 gm/ Sodium Chloride 55 ml @ 110 mls/hr Q24H IVPB 08/22/17 10:00 08/29/17 09:59 Citalopram Hydrobromide (celeXA) 20 mg DAILY ORAL 08/22/17 09:00 09/18/17 08:59 08/22/17 09:00 Clonidine HCl (Catapres) 0.1 mg Q6H PRN ORAL SBP > 160mmHg 08/21/17 20:00 09/18/17 07:59 Dextrose (Dextrose 50%) STAT PRN IV Hypoglycemia 08/21/17 20:00 09/20/17 19:59 08/22/17 05:23 Ferrous Sulfate (Feosol) 325 mg DAILY ORAL 08/22/17 09:00 09/18/17 08:59 08/22/17 08:50 Insulin Aspart (NovoLOG) EVERY 4 HOURS SUBQ 08/21/17 21:00 09/19/17 08:59 08/21/17 21:05 Insulin Detemir (Levemir) 15 units Q12HR SUBQ 08/21/17 21:00 09/19/17 08:59 08/21/17 21:06 Levothyroxine Sodium (Synthroid) 75 mcg ACBREAKFAST ORAL 08/22/17 06:30 09/21/17 06:29 08/22/17 06:00 Lorazepam (Ativan) 0.5 mg Q8H PRN ORAL For Anxiety 08/21/17 20:00 08/28/17 19:59 Losartan Potassium (Cozaar) 50 mg DAILY ORAL 08/22/17 09:00 09/18/17 08:59 08/22/17 08:51 Multivitamins (Multivitamins) 1 tab DAILY ORAL 08/22/17 09:00 09/18/17 08:59 08/22/17 08:50 Ondansetron HCl (Zofran) 4 mg Q6H PRN ORAL Nausea & Vomiting 08/21/17 20:00 09/18/17 07:59 Oxycodone/ Acetaminophen (Percocet 5-325) 1 tab Q6H PRN ORAL Severe Breakthrough Pain 08/21/17 20:00 08/26/17 07:59 08/22/17 08:54 Pantoprazole (Protonix) 40 mg DAILY IVP 08/22/17 09:00 09/19/17 08:59 08/22/17 08:50 Potassium Chloride (KCl 10% 40mEq Oral solution) 40 meq EVERY 2 HOURS NG 08/22/17 08:00 08/22/17 12:01 08/22/17 07:58 Sodium Chloride 1,000 ml @ 150 mls/hr Q6H40M IV 08/21/17 20:30 09/18/17 20:29 08/22/17 04:48 Item Value Date Time Bedside Blood Glucose 166 mg/dl H 08/22/17 0559 Bedside Blood Glucose 126 mg/dl H 08/22/17 0218 Bedside Blood Glucose 112 mg/dl 08/21/17 2106 Bedside Blood Glucose 109 mg/dl 08/21/17 1616 Bedside Blood Glucose 141 mg/dl H 08/21/17 1305 Bedside Blood Glucose 145 mg/dl H 08/21/17 0817 Bedside Blood Glucose 144 mg/dl H 08/21/17 0454 KAYLEE DARNELL Aug 22, 2017 09:06
--- NOTE | 2017-08-22 09:06 | General Progress Note ---
Assessment/Plan Problem List: (1) DKA (diabetic ketoacidoses) ICD Codes: E13.10 - Other specified diabetes mellitus with ketoacidosis without coma SNOMED: 37406439, 472283013 (2) Altered level of consciousness ICD Codes: R40.4 - Transient alteration of awareness SNOMED: 7731242 (3) Hyperkalemia ICD Codes: E87.5 - Hyperkalemia SNOMED: 45769773 (4) Rhabdomyolysis ICD Codes: M62.82 - Rhabdomyolysis SNOMED: 352521656, 834958416 (5) Diabetes mellitus out of control ICD Codes: E11.65 - Type 2 diabetes mellitus with hyperglycemia SNOMED: 812187352, 98835597 (6) Sepsis ICD Codes: A41.9 - Sepsis, unspecified organism SNOMED: 02096333 (7) Hypothyroidism ICD Codes: E03.9 - Hypothyroidism, unspecified SNOMED: 19898369 Assessment/Plan continue Levemir 15 units bid continue Novolog sliding scale ac / hs TF is tolerated continue Levothyroxine 75 mcg daily Subjective ROS Limited/Unobtainable: Yes Allergies: Coded Allergies: No Known Allergies (Unverified , 08/18/17) Subjective events noted - interval notes reviewed transferred out of ICU Objective Last 24 Hour Vital Signs Date Time Temp Pulse Resp B/P (MAP) Pulse Ox O2 Delivery O2 Flow Rate FiO2 08/22/17 08:51 143/69 08/22/17 08:51 78 143/69 08/22/17 07:58 98.1 78 22 143/69 92 Venturi Mask 10.0 50 08/22/17 04:00 98.3 75 18 136/60 92 Venturi Mask 8.0 08/22/17 04:00 77 08/22/17 03:16 98.1 08/22/17 00:00 98.1 72 20 128/69 93 Venturi Mask 8.0 08/22/17 00:00 73 08/21/17 20:29 94 Venturi Mask 12.0 50 08/21/17 20:29 Venturi Mask 12.0 50 08/21/17 20:28 95 18 Venturi Mask 12.0 50 08/21/17 20:15 94 Venturi Mask 8.0 08/21/17 20:03 90 08/21/17 20:00 82 08/21/17 20:00 97.4 85 20 134/58 82 Venturi Mask 8.0 08/21/17 18:00 80 22 132/61 93 Venturi Mask 50 08/21/17 17:00 84 22 140/54 93 Venturi Mask 50 08/21/17 16:00 70 08/21/17 16:00 98.2 81 20 127/57 94 Venturi Mask 50 08/21/17 15:00 74 22 103/52 93 Venturi Mask 50 08/21/17 14:03 98.4 08/21/17 14:00 75 22 133/63 93 Venturi Mask 50 08/21/17 13:00 80 22 121/57 93 Venturi Mask 50 08/21/17 12:00 98.4 81 21 121/57 94 Venturi Mask 50 08/21/17 12:00 86 08/21/17 11:00 84 21 123/66 93 Venturi Mask 50 08/21/17 10:00 86 21 138/54 93 Venturi Mask 50 Laboratory Tests 08/22/17 04:00: White Blood Count 5.7, Red Blood Count 2.65L, Hemoglobin 8.9L, Hematocrit 26.4L , Mean Corpuscular Volume 99, Mean Corpuscular Hemoglobin 33.7H, Mean Corpuscular Hemoglobin Concent 33.9, Red Cell Distribution Width 15.1H, Platelet Count 104L, Mean Platelet Volume 6.8, Neutrophils (%) (Auto) 82.2H, Lymphocytes (%) (Auto) 11.0L, Monocytes (%) (Auto) 4.6, Eosinophils (%) (Auto) 1.5, Basophils (%) (Auto) 0.7, Sodium Level 141, Potassium Level 2.7*L, Chloride Level 104, Carbon Dioxide Level 22, Anion Gap 15, Blood Urea Nitrogen 10, Creatinine 0.4L, Estimat Glomerular Filtration Rate > 60, Glucose Level 64L , Calcium Level 8.0L, Total Bilirubin 0.4, Aspartate Amino Transf (AST/SGOT) 91H , Alanine Aminotransferase (ALT/SGPT) 29, Alkaline Phosphatase 109H, Pro-B-Type Natriuretic Peptide 1834H, Total Protein 5.3L, Albumin 1.7L, Globulin 3.6, Albumin/Globulin Ratio 0.4L Height (Feet): 5 Height (Inches): 3.00 Weight (Pounds): 104 General Appearance: no apparent distress Neck: normal alignment Cardiovascular: normal rate Respiratory/Chest: decreased breath sounds Abdomen: normal bowel sounds Edema: no edema noted Arm (L), no edema noted Arm (R), no edema noted Leg (L), no edema noted Leg (R), no edema noted Pedal (L), no edema noted Pedal (R), no edema noted Generalized Objective Current Medications Medications (Trade) Dose Ordered Sig/Adonay Route PRN Reason Start Time Stop Time Status Last Admin Dose Admin Acetaminophen (Tylenol) 650 mg Q6H PRN ORAL Mild Pain/Temp > 100.5 08/21/17 20:00 09/18/17 07:59 Amlodipine Besylate (Norvasc) 10 mg DAILY ORAL 08/22/17 09:00 09/18/17 08:59 08/22/17 08:51 Ascorbic Acid (Vitamin C) 500 mg DAILY ORAL 08/22/17 09:00 09/18/17 08:59 08/22/17 08:50 Baclofen (Lioresal) 10 mg THREE TIMES A DAY ORAL 08/22/17 09:00 09/18/17 08:59 08/22/17 08:50 Ceftriaxone Sodium 1 gm/ Sodium Chloride 55 ml @ 110 mls/hr Q24H IVPB 08/22/17 10:00 08/29/17 09:59 Citalopram Hydrobromide (celeXA) 20 mg DAILY ORAL 08/22/17 09:00 09/18/17 08:59 08/22/17 09:00 Clonidine HCl (Catapres) 0.1 mg Q6H PRN ORAL SBP > 160mmHg 08/21/17 20:00 09/18/17 07:59 Dextrose (Dextrose 50%) STAT PRN IV Hypoglycemia 08/21/17 20:00 09/20/17 19:59 08/22/17 05:23 Ferrous Sulfate (Feosol) 325 mg DAILY ORAL 08/22/17 09:00 09/18/17 08:59 08/22/17 08:50 Insulin Aspart (NovoLOG) EVERY 4 HOURS SUBQ 08/21/17 21:00 09/19/17 08:59 08/21/17 21:05 Insulin Detemir (Levemir) 15 units Q12HR SUBQ 08/21/17 21:00 09/19/17 08:59 08/21/17 21:06 Levothyroxine Sodium (Synthroid) 75 mcg ACBREAKFAST ORAL 08/22/17 06:30 09/21/17 06:29 08/22/17 06:00 Lorazepam (Ativan) 0.5 mg Q8H PRN ORAL For Anxiety 08/21/17 20:00 08/28/17 19:59 Losartan Potassium (Cozaar) 50 mg DAILY ORAL 08/22/17 09:00 09/18/17 08:59 08/22/17 08:51 Multivitamins (Multivitamins) 1 tab DAILY ORAL 08/22/17 09:00 09/18/17 08:59 08/22/17 08:50 Ondansetron HCl (Zofran) 4 mg Q6H PRN ORAL Nausea & Vomiting 08/21/17 20:00 09/18/17 07:59 Oxycodone/ Acetaminophen (Percocet 5-325) 1 tab Q6H PRN ORAL Severe Breakthrough Pain 08/21/17 20:00 08/26/17 07:59 08/22/17 08:54 Pantoprazole (Protonix) 40 mg DAILY IVP 08/22/17 09:00 09/19/17 08:59 08/22/17 08:50 Potassium Chloride (KCl 10% 40mEq Oral solution) 40 meq EVERY 2 HOURS NG 08/22/17 08:00 08/22/17 12:01 08/22/17 07:58 Sodium Chloride 1,000 ml @ 150 mls/hr Q6H40M IV 08/21/17 20:30 09/18/17 20:29 08/22/17 04:48 Item Value Date Time Bedside Blood Glucose 166 mg/dl H 08/22/17 0559 Bedside Blood Glucose 126 mg/dl H 08/22/17 0218 Bedside Blood Glucose 112 mg/dl 08/21/17 2106 Bedside Blood Glucose 109 mg/dl 08/21/17 1616 Bedside Blood Glucose 141 mg/dl H 08/21/17 1305 Bedside Blood Glucose 145 mg/dl H 08/21/17 0817 Bedside Blood Glucose 144 mg/dl H 08/21/17 0454 KAYLEE DARNELL Aug 22, 2017 09:06
--- NOTE | 2017-08-22 09:42 | Diagnostic Imaging Report ---
Indication:Abdominal pain Technique: Grayscale and duplex Doppler imaging of the abdomen performed. Comparison: None Findings: The demonstrated part of the pancreas, gallbladder, IVC, both kidneys, spleen appear unremarkable. Aorta is calcified. Liver is echogenic consistent with fatty infiltration. CBD is 5 mm. There is no biliary ductal dilatation identified. Doppler evaluation of the main portal vein shows patency. There is no ascites. No hydronephrosis seen. Impression: Fatty liver Atherosclerotic disease
--- NOTE | 2017-08-22 09:46 | Diagnostic Imaging Report ---
Indication:Lower abdominal and pelvic pain Technique: Grayscale and duplex Doppler imaging of the pelvis performed utilizing a transabdominal scan. Comparison: None Findings: Endovaginal scan was not done because of discomfort. The study was performed at a transabdominal scan. There are surgical absence of the uterus. The ovaries are not seen and by history patient has had also bilateral of recommended. No mass or abnormal fluid cultures are identified. There is a Esposito catheter within the urinary bladder. There is blood or debris within the bladder lumen. Impression: Blood or debris within the bladder lumen. Esposito catheter noted. Status post hysterectomy and bilateral oophorectomy.
[2017-08-22] MEDS ORDERED: cefTRIAXone 1 GM in D5W 55 ML IVPB SCH (10:00)
[2017-08-22] MEDS: cefTRIAXone 1 GM in NS 55 ML IVPB SCH (10:12)
--- NOTE | 2017-08-22 11:41 | Pulmonology Progress Note ---
Assessment/Plan Assessment/Plan DKA, resolved DM w hypoglycemia UTI sepsis htn anxiety, depression chronic pain on meds, dc IV Morphine AMS, improved but still confused lactic acidosis respiratory failure cont rx ceftriaxone adjust insulin per Dr Andrade rx UTI, sepsis cont other rx f/u CPK, CXR swallow eval Subjective ROS Limited/Unobtainable: Yes Allergies: Coded Allergies: No Known Allergies (Unverified , 08/18/17) Objective Last 24 Hour Vital Signs Date Time Temp Pulse Resp B/P (MAP) Pulse Ox O2 Delivery O2 Flow Rate FiO2 08/22/17 11:32 97.5 68 20 112/64 93 Venturi Mask 10.0 50 08/22/17 08:51 143/69 08/22/17 08:51 78 143/69 08/22/17 07:58 98.1 78 22 143/69 92 Venturi Mask 10.0 50 08/22/17 04:00 98.3 75 18 136/60 92 Venturi Mask 8.0 08/22/17 04:00 77 08/22/17 03:16 98.1 08/22/17 00:00 98.1 72 20 128/69 93 Venturi Mask 8.0 08/22/17 00:00 73 08/21/17 20:29 94 Venturi Mask 12.0 50 08/21/17 20:29 Venturi Mask 12.0 50 08/21/17 20:28 95 18 Venturi Mask 12.0 50 08/21/17 20:15 94 Venturi Mask 8.0 08/21/17 20:03 90 08/21/17 20:00 82 08/21/17 20:00 97.4 85 20 134/58 82 Venturi Mask 8.0 08/21/17 18:00 80 22 132/61 93 Venturi Mask 50 08/21/17 17:00 84 22 140/54 93 Venturi Mask 50 08/21/17 16:00 70 08/21/17 16:00 98.2 81 20 127/57 94 Venturi Mask 50 08/21/17 15:00 74 22 103/52 93 Venturi Mask 50 08/21/17 14:03 98.4 08/21/17 14:00 75 22 133/63 93 Venturi Mask 50 08/21/17 13:00 80 22 121/57 93 Venturi Mask 50 08/21/17 12:00 98.4 81 21 121/57 94 Venturi Mask 50 08/21/17 12:00 86 Intake and Output 08/22/17 08/23/17 19:00 07:00 Intake Total 530 ml Balance 530 ml Tube Feeding 220 ml Blood Product 310 ml # Bowel Movements 1 General Appearance: no acute distress, cachetic HEENT: atraumatic Respiratory/Chest: lungs clear Cardiovascular: normal rate Abdomen: soft, non tender Microbiology Date/Time Source Procedure Growth Status 08/19/17 20:20 Indwelling Cath Urine Culture - Final NO GROWTH AFTER 48 HOURS Complete Laboratory Tests 08/22/17 04:00: White Blood Count 5.7, Red Blood Count 2.65L, Hemoglobin 8.9L, Hematocrit 26.4L , Mean Corpuscular Volume 99, Mean Corpuscular Hemoglobin 33.7H, Mean Corpuscular Hemoglobin Concent 33.9, Red Cell Distribution Width 15.1H, Platelet Count 104L, Mean Platelet Volume 6.8, Neutrophils (%) (Auto) 82.2H, Lymphocytes (%) (Auto) 11.0L, Monocytes (%) (Auto) 4.6, Eosinophils (%) (Auto) 1.5, Basophils (%) (Auto) 0.7, Sodium Level 141, Potassium Level 2.7*L, Chloride Level 104, Carbon Dioxide Level 22, Anion Gap 15, Blood Urea Nitrogen 10, Creatinine 0.4L, Estimat Glomerular Filtration Rate > 60, Glucose Level 64L , Calcium Level 8.0L, Total Bilirubin 0.4, Aspartate Amino Transf (AST/SGOT) 91H , Alanine Aminotransferase (ALT/SGPT) 29, Alkaline Phosphatase 109H, Pro-B-Type Natriuretic Peptide 1834H, Total Protein 5.3L, Albumin 1.7L, Globulin 3.6, Albumin/Globulin Ratio 0.4L Current Medications Medications (Trade) Dose Ordered Sig/Adonay Route PRN Reason Start Time Stop Time Status Last Admin Dose Admin Acetaminophen (Tylenol) 650 mg Q6H PRN ORAL Mild Pain/Temp > 100.5 08/21/17 20:00 09/18/17 07:59 Amlodipine Besylate (Norvasc) 10 mg DAILY ORAL 08/22/17 09:00 09/18/17 08:59 08/22/17 08:51 Ascorbic Acid (Vitamin C) 500 mg DAILY ORAL 10/3/17 09:00 09/18/17 08:59 08/22/17 08:50 Baclofen (Lioresal) 10 mg THREE TIMES A DAY ORAL 08/22/17 09:00 09/18/17 08:59 08/22/17 08:50 Ceftriaxone Sodium 1 gm/ Sodium Chloride 55 ml @ 110 mls/hr Q24H IVPB 08/22/17 10:00 08/29/17 09:59 08/22/17 10:12 Citalopram Hydrobromide (celeXA) 20 mg DAILY ORAL 08/22/17 09:00 09/18/17 08:59 08/22/17 09:00 Clonidine HCl (Catapres) 0.1 mg Q6H PRN ORAL SBP > 160mmHg 08/21/17 20:00 09/18/17 07:59 Dextrose (Dextrose 50%) STAT PRN IV Hypoglycemia 08/21/17 20:00 09/20/17 19:59 08/22/17 05:23 Ferrous Sulfate (Feosol) 325 mg DAILY ORAL 08/22/17 09:00 09/18/17 08:59 08/22/17 08:50 Insulin Aspart (NovoLOG) EVERY 4 HOURS SUBQ 08/21/17 21:00 09/19/17 08:59 08/21/17 21:05 Insulin Detemir (Levemir) 8 units EVERY 12 HOURS SUBQ 08/22/17 21:00 09/21/17 20:59 Levothyroxine Sodium (Synthroid) 75 mcg ACBREAKFAST ORAL 08/22/17 06:30 09/21/17 06:29 08/22/17 06:00 Lorazepam (Ativan) 0.5 mg Q8H PRN ORAL For Anxiety 08/21/17 20:00 08/28/17 19:59 Losartan Potassium (Cozaar) 50 mg DAILY ORAL 08/22/17 09:00 09/18/17 08:59 08/22/17 08:51 Multivitamins (Multivitamins) 1 tab DAILY ORAL 08/22/17 09:00 09/18/17 08:59 08/22/17 08:50 Ondansetron HCl (Zofran) 4 mg Q6H PRN ORAL Nausea & Vomiting 08/21/17 20:00 09/18/17 07:59 Oxycodone/ Acetaminophen (Percocet 5-325) 1 tab Q6H PRN ORAL Severe Breakthrough Pain 08/21/17 20:00 08/26/17 07:59 08/22/17 08:54 Pantoprazole (Protonix) 40 mg DAILY IVP 08/22/17 09:00 09/19/17 08:59 08/22/17 08:50 Potassium Chloride (KCl 10% 40mEq Oral solution) 40 meq EVERY 2 HOURS NG 08/22/17 08:00 08/22/17 12:01 08/22/17 10:12 Sodium Chloride 1,000 ml @ 75 mls/hr [id number] IV 08/22/17 11:30 09/21/17 11:29 08/22/17 11:12 PATRICIA LUGO Aug 22, 2017 11:41
--- NOTE | 2017-08-22 12:31 | Diagnostic Imaging Report ---
APPROVED REPORT CPT Code: 35374 Present Symptoms Shortness of breath BILATERAL: Imaging reveals a patent deep venous system bilaterally. There is no evidence of thrombus within the femoral, popliteal or tibial segments. The greater saphenous veins are also within normal limits. Doppler indicates normal spontaneous flow within these segments. The calf veins were not well visualized bilaterally. Incidental finding: Bilateral AV fistulae at the level of the CFV/[employer]DERW[employer] H[employer]TER [employer]PER.
--- NOTE | 2017-08-22 12:31 | Diagnostic Imaging Report ---
APPROVED REPORT CPT Code: 05496 Present Symptoms Shortness of breath BILATERAL: Imaging reveals a patent deep venous system bilaterally. There is no evidence of thrombus within the femoral, popliteal or tibial segments. The greater saphenous veins are also within normal limits. Doppler indicates normal spontaneous flow within these segments. The calf veins were not well visualized bilaterally. Incidental finding: Bilateral AV fistulae at the level of the CFV/MANAGER OB.
--- NOTE | 2017-08-22 12:31 | Diagnostic Imaging Report ---
APPROVED REPORT CPT Code: 82971 Present Symptoms Shortness of breath BILATERAL: Imaging reveals a patent deep venous system bilaterally. There is no evidence of thrombus within the femoral, popliteal or tibial segments. The greater saphenous veins are also within normal limits. Doppler indicates normal spontaneous flow within these segments. The calf veins were not well visualized bilaterally. Incidental finding: Bilateral AV fistulae at the level of the CFV/[employer] IN THE[employer]ENDANT.
[2017-08-22] MEDS ORDERED: Levemir Flexpen SUBQ SCH ×2 (21:00)
[2017-08-23] MEDS: NovoLOG Insulin Flexpen SUBQ SCH ×6 (01:26→21:42)
[2017-08-23 04:13] VITALS: BP 124/54
[2017-08-23 05:57] LABS: HEMATOCRIT 26.7 % (37.0-47.0); HEMOGLOBIN 9.2 G/DL (12.0-16.0); MEAN CORPUSCULAR VOLUME 99 FL (80-99); PLATELET COUNT 82 K/UL (150-450); RED BLOOD COUNT 2.69 M/UL (4.20-5.40); RED CELL DISTRIBUTION WIDTH 15.6 % (11.6-14.8); WHITE BLOOD COUNT 9.6 K/UL (4.8-10.8)
[2017-08-23 06:24] LABS: ALANINE AMINOTRANSFERASE 31 U/L (3-33); ALBUMIN 1.3 g/dL (3.5-5.2); ALBUMIN/GLOBULIN RATIO 0.3 (1.0-2.7); ALKALINE PHOSPHATASE 148 U/L (35-104); ANION GAP 12 (5-15); ASPARTATE AMINO TRANSFERASE 55 U/L (5-40); BILIRUBIN,TOTAL 0.3 mg/dL (0.0-1.2); BLOOD UREA NITROGEN 12 mg/dL (7-23); CALCIUM 8.3 mg/dL (8.6-10.2); CARBON DIOXIDE 24 mEQ/L (20-30); CHLORIDE 102 mEQ/L (98-107); CREATINE KINASE 251 U/L (26-140); CREATININE 0.5 mg/dL (0.5-0.9); POTASSIUM 3.6 mEQ/L (3.4-4.9); SODIUM 138 mEQ/L (135-145)
--- NOTE | 2017-08-23 07:40 | General Progress Note ---
Assessment/Plan Problem List: (1) DKA (diabetic ketoacidoses) ICD Codes: E13.10 - Other specified diabetes mellitus with ketoacidosis without coma SNOMED: 94018226, 601192448 (2) Altered level of consciousness ICD Codes: R40.4 - Transient alteration of awareness SNOMED: 7948388 (3) Hyperkalemia ICD Codes: E87.5 - Hyperkalemia SNOMED: 63126761 (4) Rhabdomyolysis ICD Codes: M62.82 - Rhabdomyolysis SNOMED: 104536743, 289826134 (5) Diabetes mellitus out of control ICD Codes: E11.65 - Type 2 diabetes mellitus with hyperglycemia SNOMED: 375421865, 50922428 (6) Sepsis ICD Codes: A41.9 - Sepsis, unspecified organism SNOMED: 88404367 (7) Hypothyroidism ICD Codes: E03.9 - Hypothyroidism, unspecified SNOMED: 98330940 Assessment/Plan increase Levemir to 10 units bid continue Novolog sliding scale ac / hs TF is tolerated continue Levothyroxine 75 mcg daily Subjective ROS Limited/Unobtainable: Yes Allergies: Coded Allergies: No Known Allergies (Unverified , 08/18/17) Subjective events noted - interval notes reviewed TF temporarily on hold for administration of Levothyroxine Objective Last 24 Hour Vital Signs Date Time Temp Pulse Resp B/P (MAP) Pulse Ox O2 Delivery O2 Flow Rate FiO2 08/23/17 04:13 96.5 80 20 124/54 92 Mechanical Ventilator 08/23/17 04:12 77 08/23/17 00:00 85 08/22/17 23:16 97.8 90 20 138/67 97 Mechanical Ventilator 08/22/17 20:00 91 08/22/17 19:08 98.1 92 18 138/92 91 Mechanical Ventilator 08/22/17 19:00 Non-Rebreather 15.0 100 08/22/17 19:00 92 18 Non-Rebreather 15.0 100 08/22/17 19:00 95 Non-Rebreather 15.0 100 08/22/17 16:11 91 08/22/17 16:05 98.1 90 20 106/80 100 Venturi Mask 10.0 50 08/22/17 16:00 94 Non-Rebreather 10.0 08/22/17 15:00 95 Non-Rebreather 10.0 08/22/17 14:00 93 Non-Rebreather 10.0 08/22/17 13:00 94 Non-Rebreather 10.0 08/22/17 12:30 96 Non-Rebreather 10.0 08/22/17 12:00 81 08/22/17 11:32 97.5 68 20 112/64 93 Venturi Mask 10.0 50 08/22/17 08:51 143/69 08/22/17 08:51 78 143/69 08/22/17 08:45 Venturi Mask 12.0 50 08/22/17 08:45 86 18 Venturi Mask 12.0 50 08/22/17 08:45 92 Venturi Mask 12.0 50 08/22/17 08:00 81 08/22/17 07:58 98.1 78 22 143/69 92 Venturi Mask 10.0 50 Laboratory Tests 08/22/17 12:10: Arterial Blood pH 7.460H, Arterial Blood Partial Pressure CO2 30.8L, Arterial Blood Partial Pressure O2 64.0L, Arterial Blood HCO3 21.7L, Arterial Blood Oxygen Saturation 83.3L, Arterial Blood Base Excess -1.4, Adolfo Test Positive 08/23/17 04:00: White Blood Count 9.6#, Red Blood Count 2.69L, Hemoglobin 9.2L, Hematocrit 26.7L , Mean Corpuscular Volume 99, Mean Corpuscular Hemoglobin 34.2H, Mean Corpuscular Hemoglobin Concent 34.5, Red Cell Distribution Width 15.6H, Platelet Count 82L, Mean Platelet Volume 8.5, Neutrophils (%) (Auto) , Lymphocytes (%) (Auto) , Monocytes (%) (Auto) , Eosinophils (%) (Auto) , Basophils (%) (Auto) , Sodium Level 138, Potassium Level 3.6, Chloride Level 102 , Carbon Dioxide Level 24, Anion Gap 12, Blood Urea Nitrogen 12, Creatinine 0.5 , Estimat Glomerular Filtration Rate > 60, Glucose Level 183#H, Calcium Level 8.3L, Total Bilirubin 0.3, Aspartate Amino Transf (AST/SGOT) 55H, Alanine Aminotransferase (ALT/SGPT) 31, Alkaline Phosphatase 148H, Total Creatine Kinase 251H, Total Protein 5.2L, Albumin 1.3L, Globulin 3.9, Albumin/Globulin Ratio 0.3L Height (Feet): 5 Height (Inches): 3.00 Weight (Pounds): 123 General Appearance: no apparent distress Neck: normal alignment Cardiovascular: normal rate Respiratory/Chest: decreased breath sounds Abdomen: normal bowel sounds Pelvis: normal external exam Edema: no edema noted Arm (L), no edema noted Arm (R), no edema noted Leg (L), no edema noted Leg (R), no edema noted Pedal (L), no edema noted Pedal (R), no edema noted Generalized Objective Current Medications Medications (Trade) Dose Ordered Sig/Adonay Route PRN Reason Start Time Stop Time Status Last Admin Dose Admin Acetaminophen (Tylenol) 650 mg Q6H PRN ORAL Mild Pain/Temp > 100.5 08/21/17 20:00 09/18/17 07:59 Amlodipine Besylate (Norvasc) 10 mg DAILY NG 08/23/17 09:00 09/22/17 08:59 UNV Ascorbic Acid (Vitamin C) 500 mg DAILY NG 08/23/17 09:00 09/22/17 08:59 UNV Baclofen (Lioresal) 10 mg THREE TIMES A DAY NG 08/23/17 09:00 09/22/17 08:59 UNV Ceftriaxone Sodium 1 gm/ Sodium Chloride 55 ml @ 110 mls/hr Q24H IVPB 08/22/17 10:00 08/29/17 09:59 08/22/17 10:12 Citalopram Hydrobromide (celeXA) 20 mg DAILY ORAL 08/22/17 09:00 09/18/17 08:59 08/22/17 09:00 Clonidine HCl (Catapres) 0.1 mg Q6H PRN NG SBP > 160mmHg 08/23/17 08:00 09/22/17 07:59 UNV Dextrose (Dextrose 50%) STAT PRN IV Hypoglycemia 08/21/17 20:00 09/20/17 19:59 08/22/17 05:23 Ferrous Sulfate (Feosol) 325 mg DAILY ORAL 08/22/17 09:00 09/18/17 08:59 08/22/17 08:50 Insulin Aspart (NovoLOG) EVERY 4 HOURS SUBQ 08/21/17 21:00 09/19/17 08:59 08/23/17 05:00 Insulin Detemir (Levemir) 8 units EVERY 12 HOURS SUBQ 08/22/17 21:00 09/21/17 20:59 08/22/17 22:04 Levothyroxine Sodium (Synthroid) 75 mcg ACBREAKFAST NG 08/24/17 06:30 09/23/17 06:29 UNV Lorazepam (Ativan) 0.5 mg Q8H PRN NG For Anxiety 08/23/17 12:00 08/30/17 11:59 UNV Losartan Potassium (Cozaar) 50 mg DAILY NG 08/23/17 09:00 09/22/17 08:59 UNV Multivitamins (Multivitamins) 1 tab DAILY ORAL 08/22/17 09:00 09/18/17 08:59 08/22/17 08:50 Ondansetron HCl (Zofran) 4 mg Q6H PRN ORAL Nausea & Vomiting 08/21/17 20:00 09/18/17 07:59 Oxycodone/ Acetaminophen (Percocet 5-325) 1 tab Q6H PRN ORAL Severe Breakthrough Pain 08/21/17 20:00 08/26/17 07:59 08/22/17 22:46 Pantoprazole (Protonix) 40 mg DAILY IVP 08/22/17 09:00 09/19/17 08:59 08/22/17 08:50 Sodium Chloride 1,000 ml @ 75 mls/hr [id number] IV 08/22/17 11:30 09/21/17 11:29 08/23/17 00:34 Item Value Date Time Bedside Blood Glucose 210 mg/dl H 08/23/17 0500 Bedside Blood Glucose 276 mg/dl H 08/23/17 0126 Bedside Blood Glucose 235 mg/dl H 08/22/17 2205 Bedside Blood Glucose 190 mg/dl H 08/22/17 1607 Bedside Blood Glucose 126 mg/dl H 08/22/17 1300 Bedside Blood Glucose 68 mg/dl L 08/22/17927 KAYLEE DARNELL Aug 23, 2017 07:40
--- NOTE | 2017-08-23 07:40 | General Progress Note ---
Assessment/Plan Problem List: (1) DKA (diabetic ketoacidoses) ICD Codes: E13.10 - Other specified diabetes mellitus with ketoacidosis without coma SNOMED: 18815932, 707537830 (2) Altered level of consciousness ICD Codes: R40.4 - Transient alteration of awareness SNOMED: 0140328 (3) Hyperkalemia ICD Codes: E87.5 - Hyperkalemia SNOMED: 62117001 (4) Rhabdomyolysis ICD Codes: M62.82 - Rhabdomyolysis SNOMED: 287130072, 461171006 (5) Diabetes mellitus out of control ICD Codes: E11.65 - Type 2 diabetes mellitus with hyperglycemia SNOMED: 530044324, 95278116 (6) Sepsis ICD Codes: A41.9 - Sepsis, unspecified organism SNOMED: 53671599 (7) Hypothyroidism ICD Codes: E03.9 - Hypothyroidism, unspecified SNOMED: 77211461 Assessment/Plan increase Levemir to 10 units bid continue Novolog sliding scale ac / hs TF is tolerated continue Levothyroxine 75 mcg daily Subjective ROS Limited/Unobtainable: Yes Allergies: Coded Allergies: No Known Allergies (Unverified , 08/18/17) Subjective events noted - interval notes reviewed TF temporarily on hold for administration of Levothyroxine Objective Last 24 Hour Vital Signs Date Time Temp Pulse Resp B/P (MAP) Pulse Ox O2 Delivery O2 Flow Rate FiO2 08/23/17 04:13 96.5 80 20 124/54 92 Mechanical Ventilator 08/23/17 04:12 77 08/23/17 00:00 85 08/22/17 23:16 97.8 90 20 138/67 97 Mechanical Ventilator 08/22/17 20:00 91 08/22/17 19:08 98.1 92 18 138/92 91 Mechanical Ventilator 08/22/17 19:00 Non-Rebreather 15.0 100 08/22/17 19:00 92 18 Non-Rebreather 15.0 100 08/22/17 19:00 95 Non-Rebreather 15.0 100 08/22/17 16:11 91 08/22/17 16:05 98.1 90 20 106/80 100 Venturi Mask 10.0 50 08/22/17 16:00 94 Non-Rebreather 10.0 08/22/17 15:00 95 Non-Rebreather 10.0 08/22/17 14:00 93 Non-Rebreather 10.0 08/22/17 13:00 94 Non-Rebreather 10.0 08/22/17 12:30 96 Non-Rebreather 10.0 08/22/17 12:00 81 08/22/17 11:32 97.5 68 20 112/64 93 Venturi Mask 10.0 50 08/22/17 08:51 143/69 08/22/17 08:51 78 143/69 08/22/17 08:45 Venturi Mask 12.0 50 08/22/17 08:45 86 18 Venturi Mask 12.0 50 08/22/17 08:45 92 Venturi Mask 12.0 50 08/22/17 08:00 81 08/22/17 07:58 98.1 78 22 143/69 92 Venturi Mask 10.0 50 Laboratory Tests 08/22/17 12:10: Arterial Blood pH 7.460H, Arterial Blood Partial Pressure CO2 30.8L, Arterial Blood Partial Pressure O2 64.0L, Arterial Blood HCO3 21.7L, Arterial Blood Oxygen Saturation 83.3L, Arterial Blood Base Excess -1.4, Adolfo Test Positive 08/23/17 04:00: White Blood Count 9.6#, Red Blood Count 2.69L, Hemoglobin 9.2L, Hematocrit 26.7L , Mean Corpuscular Volume 99, Mean Corpuscular Hemoglobin 34.2H, Mean Corpuscular Hemoglobin Concent 34.5, Red Cell Distribution Width 15.6H, Platelet Count 82L, Mean Platelet Volume 8.5, Neutrophils (%) (Auto) , Lymphocytes (%) (Auto) , Monocytes (%) (Auto) , Eosinophils (%) (Auto) , Basophils (%) (Auto) , Sodium Level 138, Potassium Level 3.6, Chloride Level 102 , Carbon Dioxide Level 24, Anion Gap 12, Blood Urea Nitrogen 12, Creatinine 0.5 , Estimat Glomerular Filtration Rate > 60, Glucose Level 183#H, Calcium Level 8.3L, Total Bilirubin 0.3, Aspartate Amino Transf (AST/SGOT) 55H, Alanine Aminotransferase (ALT/SGPT) 31, Alkaline Phosphatase 148H, Total Creatine Kinase 251H, Total Protein 5.2L, Albumin 1.3L, Globulin 3.9, Albumin/Globulin Ratio 0.3L Height (Feet): 5 Height (Inches): 3.00 Weight (Pounds): 123 General Appearance: no apparent distress Neck: normal alignment Cardiovascular: normal rate Respiratory/Chest: decreased breath sounds Abdomen: normal bowel sounds Pelvis: normal external exam Edema: no edema noted Arm (L), no edema noted Arm (R), no edema noted Leg (L), no edema noted Leg (R), no edema noted Pedal (L), no edema noted Pedal (R), no edema noted Generalized Objective Current Medications Medications (Trade) Dose Ordered Sig/Adonay Route PRN Reason Start Time Stop Time Status Last Admin Dose Admin Acetaminophen (Tylenol) 650 mg Q6H PRN ORAL Mild Pain/Temp > 100.5 08/21/17 20:00 09/18/17 07:59 Amlodipine Besylate (Norvasc) 10 mg DAILY NG 08/23/17 09:00 09/22/17 08:59 UNV Ascorbic Acid (Vitamin C) 500 mg DAILY NG 08/23/17 09:00 09/22/17 08:59 UNV Baclofen (Lioresal) 10 mg THREE TIMES A DAY NG 08/23/17 09:00 09/22/17 08:59 UNV Ceftriaxone Sodium 1 gm/ Sodium Chloride 55 ml @ 110 mls/hr Q24H IVPB 08/22/17 10:00 08/29/17 09:59 08/22/17 10:12 Citalopram Hydrobromide (celeXA) 20 mg DAILY ORAL 08/22/17 09:00 09/18/17 08:59 08/22/17 09:00 Clonidine HCl (Catapres) 0.1 mg Q6H PRN NG SBP > 160mmHg 08/23/17 08:00 09/22/17 07:59 UNV Dextrose (Dextrose 50%) STAT PRN IV Hypoglycemia 08/21/17 20:00 09/20/17 19:59 08/22/17 05:23 Ferrous Sulfate (Feosol) 325 mg DAILY ORAL 08/22/17 09:00 09/18/17 08:59 08/22/17 08:50 Insulin Aspart (NovoLOG) EVERY 4 HOURS SUBQ 08/21/17 21:00 09/19/17 08:59 08/23/17 05:00 Insulin Detemir (Levemir) 8 units EVERY 12 HOURS SUBQ 08/22/17 21:00 09/21/17 20:59 08/22/17 22:04 Levothyroxine Sodium (Synthroid) 75 mcg ACBREAKFAST NG 08/24/17 06:30 09/23/17 06:29 UNV Lorazepam (Ativan) 0.5 mg Q8H PRN NG For Anxiety 08/23/17 12:00 08/30/17 11:59 UNV Losartan Potassium (Cozaar) 50 mg DAILY NG 08/23/17 09:00 09/22/17 08:59 UNV Multivitamins (Multivitamins) 1 tab DAILY ORAL 08/22/17 09:00 09/18/17 08:59 08/22/17 08:50 Ondansetron HCl (Zofran) 4 mg Q6H PRN ORAL Nausea & Vomiting 08/21/17 20:00 09/18/17 07:59 Oxycodone/ Acetaminophen (Percocet 5-325) 1 tab Q6H PRN ORAL Severe Breakthrough Pain 08/21/17 20:00 08/26/17 07:59 08/22/17 22:46 Pantoprazole (Protonix) 40 mg DAILY IVP 08/22/17 09:00 09/19/17 08:59 08/22/17 08:50 Sodium Chloride 1,000 ml @ 75 mls/hr [id number] IV 08/22/17 11:30 09/21/17 11:29 08/23/17 00:34 Item Value Date Time Bedside Blood Glucose 210 mg/dl H 08/23/17 0500 Bedside Blood Glucose 276 mg/dl H 08/23/17 0126 Bedside Blood Glucose 235 mg/dl H 08/22/17 2205 Bedside Blood Glucose 190 mg/dl H 08/22/17 1607 Bedside Blood Glucose 126 mg/dl H 08/22/17 1300 Bedside Blood Glucose 68 mg/dl L 08/22/17927 KAYLEE DARNELL Aug 23, 2017 07:40
--- NOTE | 2017-08-23 07:40 | General Progress Note ---
Assessment/Plan Problem List: (1) DKA (diabetic ketoacidoses) ICD Codes: E13.10 - Other specified diabetes mellitus with ketoacidosis without coma SNOMED: 25826302, 948002449 (2) Altered level of consciousness ICD Codes: R40.4 - Transient alteration of awareness SNOMED: 4773027 (3) Hyperkalemia ICD Codes: E87.5 - Hyperkalemia SNOMED: 06469543 (4) Rhabdomyolysis ICD Codes: M62.82 - Rhabdomyolysis SNOMED: 613209068, 797205415 (5) Diabetes mellitus out of control ICD Codes: E11.65 - Type 2 diabetes mellitus with hyperglycemia SNOMED: 733558028, 39686182 (6) Sepsis ICD Codes: A41.9 - Sepsis, unspecified organism SNOMED: 98774002 (7) Hypothyroidism ICD Codes: E03.9 - Hypothyroidism, unspecified SNOMED: 14304371 Assessment/Plan increase Levemir to 10 units bid continue Novolog sliding scale ac / hs TF is tolerated continue Levothyroxine 75 mcg daily Subjective ROS Limited/Unobtainable: Yes Allergies: Coded Allergies: No Known Allergies (Unverified , 08/18/17) Subjective events noted - interval notes reviewed TF temporarily on hold for administration of Levothyroxine Objective Last 24 Hour Vital Signs Date Time Temp Pulse Resp B/P (MAP) Pulse Ox O2 Delivery O2 Flow Rate FiO2 08/23/17 04:13 96.5 80 20 124/54 92 Mechanical Ventilator 08/23/17 04:12 77 08/23/17 00:00 85 08/22/17 23:16 97.8 90 20 138/67 97 Mechanical Ventilator 08/22/17 20:00 91 08/22/17 19:08 98.1 92 18 138/92 91 Mechanical Ventilator 08/22/17 19:00 Non-Rebreather 15.0 100 08/22/17 19:00 92 18 Non-Rebreather 15.0 100 08/22/17 19:00 95 Non-Rebreather 15.0 100 08/22/17 16:11 91 08/22/17 16:05 98.1 90 20 106/80 100 Venturi Mask 10.0 50 08/22/17 16:00 94 Non-Rebreather 10.0 08/22/17 15:00 95 Non-Rebreather 10.0 08/22/17 14:00 93 Non-Rebreather 10.0 08/22/17 13:00 94 Non-Rebreather 10.0 08/22/17 12:30 96 Non-Rebreather 10.0 08/22/17 12:00 81 08/22/17 11:32 97.5 68 20 112/64 93 Venturi Mask 10.0 50 08/22/17 08:51 143/69 08/22/17 08:51 78 143/69 08/22/17 08:45 Venturi Mask 12.0 50 08/22/17 08:45 86 18 Venturi Mask 12.0 50 08/22/17 08:45 92 Venturi Mask 12.0 50 08/22/17 08:00 81 08/22/17 07:58 98.1 78 22 143/69 92 Venturi Mask 10.0 50 Laboratory Tests 08/22/17 12:10: Arterial Blood pH 7.460H, Arterial Blood Partial Pressure CO2 30.8L, Arterial Blood Partial Pressure O2 64.0L, Arterial Blood HCO3 21.7L, Arterial Blood Oxygen Saturation 83.3L, Arterial Blood Base Excess -1.4, Adolfo Test Positive 08/23/17 04:00: White Blood Count 9.6#, Red Blood Count 2.69L, Hemoglobin 9.2L, Hematocrit 26.7L , Mean Corpuscular Volume 99, Mean Corpuscular Hemoglobin 34.2H, Mean Corpuscular Hemoglobin Concent 34.5, Red Cell Distribution Width 15.6H, Platelet Count 82L, Mean Platelet Volume 8.5, Neutrophils (%) (Auto) , Lymphocytes (%) (Auto) , Monocytes (%) (Auto) , Eosinophils (%) (Auto) , Basophils (%) (Auto) , Sodium Level 138, Potassium Level 3.6, Chloride Level 102 , Carbon Dioxide Level 24, Anion Gap 12, Blood Urea Nitrogen 12, Creatinine 0.5 , Estimat Glomerular Filtration Rate > 60, Glucose Level 183#H, Calcium Level 8.3L, Total Bilirubin 0.3, Aspartate Amino Transf (AST/SGOT) 55H, Alanine Aminotransferase (ALT/SGPT) 31, Alkaline Phosphatase 148H, Total Creatine Kinase 251H, Total Protein 5.2L, Albumin 1.3L, Globulin 3.9, Albumin/Globulin Ratio 0.3L Height (Feet): 5 Height (Inches): 3.00 Weight (Pounds): 123 General Appearance: no apparent distress Neck: normal alignment Cardiovascular: normal rate Respiratory/Chest: decreased breath sounds Abdomen: normal bowel sounds Pelvis: normal external exam Edema: no edema noted Arm (L), no edema noted Arm (R), no edema noted Leg (L), no edema noted Leg (R), no edema noted Pedal (L), no edema noted Pedal (R), no edema noted Generalized Objective Current Medications Medications (Trade) Dose Ordered Sig/Adonay Route PRN Reason Start Time Stop Time Status Last Admin Dose Admin Acetaminophen (Tylenol) 650 mg Q6H PRN ORAL Mild Pain/Temp > 100.5 08/21/17 20:00 09/18/17 07:59 Amlodipine Besylate (Norvasc) 10 mg DAILY NG 08/23/17 09:00 09/22/17 08:59 UNV Ascorbic Acid (Vitamin C) 500 mg DAILY NG 08/23/17 09:00 09/22/17 08:59 UNV Baclofen (Lioresal) 10 mg THREE TIMES A DAY NG 08/23/17 09:00 09/22/17 08:59 UNV Ceftriaxone Sodium 1 gm/ Sodium Chloride 55 ml @ 110 mls/hr Q24H IVPB 08/22/17 10:00 08/29/17 09:59 08/22/17 10:12 Citalopram Hydrobromide (celeXA) 20 mg DAILY ORAL 08/22/17 09:00 09/18/17 08:59 08/22/17 09:00 Clonidine HCl (Catapres) 0.1 mg Q6H PRN NG SBP > 160mmHg 08/23/17 08:00 09/22/17 07:59 UNV Dextrose (Dextrose 50%) STAT PRN IV Hypoglycemia 08/21/17 20:00 09/20/17 19:59 08/22/17 05:23 Ferrous Sulfate (Feosol) 325 mg DAILY ORAL 08/22/17 09:00 09/18/17 08:59 08/22/17 08:50 Insulin Aspart (NovoLOG) EVERY 4 HOURS SUBQ 08/21/17 21:00 09/19/17 08:59 08/23/17 05:00 Insulin Detemir (Levemir) 8 units EVERY 12 HOURS SUBQ 08/22/17 21:00 09/21/17 20:59 08/22/17 22:04 Levothyroxine Sodium (Synthroid) 75 mcg ACBREAKFAST NG 08/24/17 06:30 09/23/17 06:29 UNV Lorazepam (Ativan) 0.5 mg Q8H PRN NG For Anxiety 08/23/17 12:00 08/30/17 11:59 UNV Losartan Potassium (Cozaar) 50 mg DAILY NG 08/23/17 09:00 09/22/17 08:59 UNV Multivitamins (Multivitamins) 1 tab DAILY ORAL 08/22/17 09:00 09/18/17 08:59 08/22/17 08:50 Ondansetron HCl (Zofran) 4 mg Q6H PRN ORAL Nausea & Vomiting 08/21/17 20:00 09/18/17 07:59 Oxycodone/ Acetaminophen (Percocet 5-325) 1 tab Q6H PRN ORAL Severe Breakthrough Pain 08/21/17 20:00 08/26/17 07:59 08/22/17 22:46 Pantoprazole (Protonix) 40 mg DAILY IVP 08/22/17 09:00 09/19/17 08:59 08/22/17 08:50 Sodium Chloride 1,000 ml @ 75 mls/hr [id number] IV 08/22/17 11:30 09/21/17 11:29 08/23/17 00:34 Item Value Date Time Bedside Blood Glucose 210 mg/dl H 08/23/17 0500 Bedside Blood Glucose 276 mg/dl H 08/23/17 0126 Bedside Blood Glucose 235 mg/dl H 08/22/17 2205 Bedside Blood Glucose 190 mg/dl H 08/22/17 1607 Bedside Blood Glucose 126 mg/dl H 08/22/17 1300 Bedside Blood Glucose 68 mg/dl L 08/22/17927 KAYLEE DARNELL Aug 23, 2017 07:40
[2017-08-23 08:10] VITALS: BP 139/69
[2017-08-23] MEDS: Pantoprazole Inj IVP SCH (08:51)
[2017-08-23] MEDS: oxyCODONE HCL/Acetaminophen 5/325mg ORAL PRN ×3 (08:53→21:09)
[2017-08-23] MEDS: Ascorbic Acid 500mg tab NG SCH (08:53)
[2017-08-23] MEDS: Citalopram Hydrobromide 10mg Tab ORAL SCH (08:53)
[2017-08-23] MEDS: Losartan 50mg tab NG SCH (08:58)
[2017-08-23] MEDS: Levemir Flexpen SUBQ SCH ×2 (09:00→21:12)
[2017-08-23] MEDS: cefTRIAXone 1 GM in NS 55 ML IVPB SCH (09:47)
--- NOTE | 2017-08-23 11:14 | Diagnostic Imaging Report ---
Indication: Dyspnea Comparison: August 21, 2017 A single view chest radiograph was obtained. Findings: Bilateral interstitial infiltrates versus edema again demonstrated without change. Focus of airspace disease also noted at the left lung base. Heart size is normal. Nasogastric tube is again noted. 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 Diffuse moderate interstitial disease likely edema
--- NOTE | 2017-08-23 11:14 | Diagnostic Imaging Report ---
Indication: Dyspnea Comparison: August 21, 2017 A single view chest radiograph was obtained. Findings: Bilateral interstitial infiltrates versus edema again demonstrated without change. Focus of airspace disease also noted at the left lung base. Heart size is normal. Nasogastric tube is again noted. 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 Diffuse moderate interstitial disease likely edema
--- NOTE | 2017-08-23 11:14 | Diagnostic Imaging Report ---
Indication: Dyspnea Comparison: August 21, 2017 A single view chest radiograph was obtained. Findings: Bilateral interstitial infiltrates versus edema again demonstrated without change. Focus of airspace disease also noted at the left lung base. Heart size is normal. Nasogastric tube is again noted. 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 Diffuse moderate interstitial disease likely edema
[2017-08-23 12:00] VITALS: BP 123/67
--- NOTE | 2017-08-23 12:52 | Pulmonology Progress Note ---
Assessment/Plan Assessment/Plan DKA, resolved DM w hypoglycemia UTI sepsis htn anxiety, depression chronic pain on meds, dc IV Morphine AMS, improved but still confused lactic acidosis respiratory failure cont rx ceftriaxone DM rx per Dr Andrade rx UTI, sepsis sat lower, on NRBM f/u CXR re ?aspiration, ? CHF Lasix x1, dc IVF echo disc w ST swallow eval Subjective ROS Limited/Unobtainable: Yes Allergies: Coded Allergies: No Known Allergies (Unverified , 08/18/17) Objective Last 24 Hour Vital Signs Date Time Temp Pulse Resp B/P (MAP) Pulse Ox O2 Delivery O2 Flow Rate FiO2 08/23/17 12:00 76 08/23/17 12:00 98.1 81 20 123/67 97 Non-Rebreather 100 08/23/17 09:52 96.5 08/23/17 08:58 139/69 08/23/17 08:58 97 08/23/17 08:52 87 139/69 08/23/17 08:10 98.0 87 21 139/69 97 Non-Rebreather 100 08/23/17 07:10 85 18 Non-Rebreather 15.0 100 08/23/17 07:10 Non-Rebreather 15.0 100 08/23/17 07:10 93 Non-Rebreather 15.0 100 08/23/17 04:13 96.5 80 20 124/54 92 Mechanical Ventilator 08/23/17 04:12 77 08/23/17 00:00 85 08/22/17 23:16 97.8 90 20 138/67 97 Mechanical Ventilator 08/22/17 20:00 91 08/22/17 19:08 98.1 92 18 138/92 91 Mechanical Ventilator 08/22/17 19:00 Non-Rebreather 15.0 100 08/22/17 19:00 92 18 Non-Rebreather 15.0 100 08/22/17 19:00 95 Non-Rebreather 15.0 100 08/22/17 16:11 91 08/22/17 16:05 98.1 90 20 106/80 100 Venturi Mask 10.0 50 08/22/17 16:00 94 Non-Rebreather 10.0 08/22/17 15:00 95 Non-Rebreather 10.0 08/22/17 14:00 93 Non-Rebreather 10.0 08/22/17 13:00 94 Non-Rebreather 10.0 Intake and Output 08/23/17 08/24/17 19:00 07:00 Intake Total 642 ml Balance 642 ml Free Water 50 ml IV Total 317 ml Tube Feeding 275 ml General Appearance: no acute distress Respiratory/Chest: decreased breath sounds Cardiovascular: normal rate Abdomen: soft, non tender Laboratory Tests 08/23/17 04:00: White Blood Count 9.6#, Red Blood Count 2.69L, Hemoglobin 9.2L, Hematocrit 26.7L , Mean Corpuscular Volume 99, Mean Corpuscular Hemoglobin 34.2H, Mean Corpuscular Hemoglobin Concent 34.5, Red Cell Distribution Width 15.6H, Platelet Count 82L, Mean Platelet Volume 8.5, Neutrophils (%) (Auto) , Lymphocytes (%) (Auto) , Monocytes (%) (Auto) , Eosinophils (%) (Auto) , Basophils (%) (Auto) , Differential Total Cells Counted 100, Neutrophils % ( Manual) 62, Lymphocytes % (Manual) 5L, Monocytes % (Manual) 4, Eosinophils % ( Manual) 0, Basophils % (Manual) 0, Band Neutrophils 29H, Platelet Estimate Adequate, Platelet Morphology Normal, Hypochromasia 1+, Anisocytosis 1+, Macrocytosis 1+, Sodium Level 138, Potassium Level 3.6, Chloride Level 102, Carbon Dioxide Level 24, Anion Gap 12, Blood Urea Nitrogen 12, Creatinine 0.5, Estimat Glomerular Filtration Rate > 60, Glucose Level 183#H, Calcium Level 8.3L , Total Bilirubin 0.3, Aspartate Amino Transf (AST/SGOT) 55H, Alanine Aminotransferase (ALT/SGPT) 31, Alkaline Phosphatase 148H, Total Creatine Kinase 251H, Total Protein 5.2L, Albumin 1.3L, Globulin 3.9, Albumin/Globulin Ratio 0.3L Current Medications Medications (Trade) Dose Ordered Sig/Adonay Route PRN Reason Start Time Stop Time Status Last Admin Dose Admin Acetaminophen (Tylenol) 650 mg Q6H PRN ORAL Mild Pain/Temp > 100.5 08/21/17 20:00 09/18/17 07:59 Amlodipine Besylate (Norvasc) 10 mg DAILY NG 08/23/17 09:00 09/22/17 08:59 08/23/17 08:52 Ascorbic Acid (Vitamin C) 500 mg DAILY NG 08/23/17 09:00 09/22/17 08:59 08/23/17 08:53 Baclofen (Lioresal) 10 mg THREE TIMES A DAY NG 08/23/17 09:00 09/22/17 08:59 08/23/17 08:52 Ceftriaxone Sodium 1 gm/ Sodium Chloride 55 ml @ 110 mls/hr Q24H IVPB 08/22/17 10:00 08/29/17 09:59 08/23/17 09:47 Citalopram Hydrobromide (celeXA) 20 mg DAILY ORAL 08/22/17 09:00 09/18/17 08:59 08/23/17 08:53 Clonidine HCl (Catapres) 0.1 mg Q6H PRN NG SBP > 160mmHg 08/23/17 08:30 09/22/17 08:29 Dextrose (Dextrose 50%) STAT PRN IV Hypoglycemia 08/21/17 20:00 09/20/17 19:59 08/23/17 09:58 Ferrous Sulfate (Feosol) 325 mg DAILY ORAL 08/22/17 09:00 09/18/17 08:59 08/23/17 08:52 Insulin Aspart (NovoLOG) EVERY 4 HOURS SUBQ 08/21/17 21:00 09/19/17 08:59 08/23/17 05:00 Insulin Detemir (Levemir) 10 units EVERY 12 HOURS SUBQ 08/23/17 09:00 09/22/17 08:59 Levothyroxine Sodium (Synthroid) 75 mcg ACBREAKFAST NG 08/24/17 06:30 09/23/17 06:29 Lorazepam (Ativan) 0.5 mg Q8H PRN NG For Anxiety 08/23/17 12:00 08/30/17 11:59 Losartan Potassium (Cozaar) 50 mg DAILY NG 08/23/17 09:00 09/22/17 08:59 08/23/17 08:58 Multivitamins (Multivitamins) 1 tab DAILY ORAL 08/22/17 09:00 09/18/17 08:59 08/23/17 08:52 Ondansetron HCl (Zofran) 4 mg Q6H PRN ORAL Nausea & Vomiting 08/21/17 20:00 09/18/17 07:59 Oxycodone/ Acetaminophen (Percocet 5-325) 1 tab Q6H PRN ORAL Severe Breakthrough Pain 08/21/17 20:00 08/26/17 07:59 08/23/17 08:53 Pantoprazole (Protonix) 40 mg DAILY IVP 08/22/17 09:00 09/19/17 08:59 08/23/17 08:51 Sodium Chloride 1,000 ml @ 75 mls/hr [id number] IV 08/22/17 11:30 09/21/17 11:29 08/23/17 00:34 PATRICIA LUGO Aug 23, 2017 12:52
[2017-08-23 16:00] VITALS: BP 105/62
[2017-08-23 20:00] VITALS: BP 116/68
[2017-08-24] VITALS: BP 114/84
[2017-08-24] MEDS: NovoLOG Insulin Flexpen SUBQ SCH ×6 (00:50→21:07)
[2017-08-24 04:00] VITALS: BP 127/62
[2017-08-24] MEDS: oxyCODONE HCL/Acetaminophen 5/325mg ORAL PRN ×3 (04:42→16:20)
[2017-08-24 05:15] LABS: HEMATOCRIT 27.9 % (37.0-47.0); HEMOGLOBIN 9.6 G/DL (12.0-16.0); MEAN CORPUSCULAR VOLUME 99 FL (80-99); PLATELET COUNT 96 K/UL (150-450); RED BLOOD COUNT 2.81 M/UL (4.20-5.40); RED CELL DISTRIBUTION WIDTH 15.6 % (11.6-14.8); WHITE BLOOD COUNT 16.2 K/UL (4.8-10.8)
[2017-08-24 05:32] LABS: ALANINE AMINOTRANSFERASE 38 U/L (3-33); ALBUMIN 1.6 g/dL (3.5-5.2); ALBUMIN/GLOBULIN RATIO 0.4 (1.0-2.7); ALKALINE PHOSPHATASE 196 U/L (35-104); ANION GAP 13 (5-15); ASPARTATE AMINO TRANSFERASE 69 U/L (5-40); BILIRUBIN,TOTAL 0.4 mg/dL (0.0-1.2); BLOOD UREA NITROGEN 12 mg/dL (7-23); CALCIUM 8.8 mg/dL (8.6-10.2); CARBON DIOXIDE 27 mEQ/L (20-30); CHLORIDE 99 mEQ/L (98-107); CREATININE 0.5 mg/dL (0.5-0.9); POTASSIUM 3.3 mEQ/L (3.4-4.9); SODIUM 139 mEQ/L (135-145)
[2017-08-24 08:01] VITALS: BP 120/80
[2017-08-24] MEDS: Losartan 50mg tab NG SCH (08:44)
[2017-08-24] MEDS: Ascorbic Acid 500mg tab NG SCH (08:45)
[2017-08-24] MEDS: Citalopram Hydrobromide 10mg Tab ORAL SCH (08:45)
[2017-08-24] MEDS: Levemir Flexpen SUBQ SCH ×2 (09:00→21:07)
[2017-08-24] MEDS: cefTRIAXone 1 GM in NS 55 ML IVPB SCH (09:55)
--- NOTE | 2017-08-24 11:51 | Diagnostic Imaging Report ---
Indication: Dyspnea Comparison: 08/23/17 A single view chest radiograph was obtained. Findings: Extensive interstitial opacities are present throughout the lungs bilaterally. The distribution is widespread with some areas of patchy concentration for example in the right upper lobe. The appearance is unchanged from the last study which was only done one day earlier. Heart size is borderline enlarged. There is a focus of consolidation at the left lung base again noted. Impression: Stable, acute interstitial disease within the lungs compared to one day earlier. Interstitial edema is certainly possible. Given normal heart size would consider inflammatory/infectious pneumonitis.
[2017-08-24 12:00] VITALS: BP 123/63
[2017-08-24] MEDS ORDERED: 1/2 NS 1000ml IV ONE (15:22)
[2017-08-24] MEDS ORDERED: NS 275ml ONE (15:22)
--- NOTE | 2017-08-24 16:04 | Pulmonology Progress Note ---
Assessment/Plan Assessment/Plan DKA, resolved DM w hypoglycemia, now stable UTI sepsis htn anxiety, depression chronic pain on meds, dc IV Morphine AMS, improved but still confused lactic acidosis respiratory failure, interstitial edema high WBC cont rx ceftriaxone DM rx per Dr Andrade rx UTI, sepsis f/u CXR w CHF Lasix rx, K echo disc w ST, RN PEG, call GI Subjective ROS Limited/Unobtainable: Yes Respiratory: Reports: shortness of breath Allergies: Coded Allergies: No Known Allergies (Unverified , 08/18/17) Objective Last 24 Hour Vital Signs Date Time Temp Pulse Resp B/P (MAP) Pulse Ox O2 Delivery O2 Flow Rate FiO2 08/24/17 12:00 98.1 83 20 123/63 100 Non-Rebreather 100 08/24/17 12:00 81 08/24/17 11:10 97.8 08/24/17 08:45 80 120/80 08/24/17 08:44 120/80 08/24/17 08:37 80 08/24/17 08:01 97.8 80 17 120/80 99 Non-Rebreather 100 08/24/17 07:15 97 Non-Rebreather 15.0 100 08/24/17 07:15 87 19 Non-Rebreather 15.0 100 08/24/17 07:15 Non-Rebreather 15.0 100 08/24/17 04:00 82 08/24/17 04:00 96.6 90 18 127/62 98 Non-Rebreather 99 08/24/17 00:00 97.0 81 18 114/84 97 Non-Rebreather 99 08/24/17 00:00 81 08/23/17 20:00 80 08/23/17 20:00 98.6 83 20 116/68 97 Non-Rebreather 99 08/23/17 19:30 Non-Rebreather 15.0 100 08/23/17 19:30 92 Non-Rebreather 15.0 100 08/23/17 19:30 88 18 Non-Rebreather 15.0 100 Intake and Output 08/24/17 08/25/17 19:00 07:00 Intake Total 495 ml Balance 495 ml IV Total 55 ml Tube Feeding 440 ml General Appearance: no acute distress Respiratory/Chest: decreased breath sounds Cardiovascular: normal rate Laboratory Tests 08/24/17 04:30: White Blood Count 16.2#H, Red Blood Count 2.81L, Hemoglobin 9.6L, Hematocrit 27.9L, Mean Corpuscular Volume 99, Mean Corpuscular Hemoglobin 34.3H, Mean Corpuscular Hemoglobin Concent 34.5, Red Cell Distribution Width 15.6H, Platelet Count 96L, Mean Platelet Volume 9.3, Neutrophils (%) (Auto) , Lymphocytes (%) (Auto) , Monocytes (%) (Auto) , Eosinophils (%) (Auto) , Basophils (%) (Auto) , Differential Total Cells Counted 100, Neutrophils % ( Manual) 89H, Lymphocytes % (Manual) 6L, Monocytes % (Manual) 2, Eosinophils % ( Manual) 1, Basophils % (Manual) 0, Band Neutrophils 2, Platelet Estimate DecreasedL, Platelet Morphology Normal, Sodium Level 139, Potassium Level 3.3L, Chloride Level 99, Carbon Dioxide Level 27, Anion Gap 13, Blood Urea Nitrogen 12 , Creatinine 0.5, Estimat Glomerular Filtration Rate > 60, Glucose Level 78#, Calcium Level 8.8, Total Bilirubin 0.4, Aspartate Amino Transf (AST/SGOT) 69H, Alanine Aminotransferase (ALT/SGPT) 38H, Alkaline Phosphatase 196H, Total Protein 5.5L, Albumin 1.6L, Globulin 3.9, Albumin/Globulin Ratio 0.4L, Thyroid Stimulating Hormone (TSH) 9.110H Current Medications Medications (Trade) Dose Ordered Sig/Adonay Route PRN Reason Start Time Stop Time Status Last Admin Dose Admin Acetaminophen (Tylenol) 650 mg Q6H PRN ORAL Mild Pain/Temp > 100.5 08/21/17 20:00 09/18/17 07:59 Amlodipine Besylate (Norvasc) 10 mg DAILY NG 08/23/17 09:00 09/22/17 08:59 08/24/17 08:45 Ascorbic Acid (Vitamin C) 500 mg DAILY NG 08/23/17 09:00 09/22/17 08:59 08/24/17 08:45 Baclofen (Lioresal) 10 mg THREE TIMES A DAY NG 08/23/17 09:00 09/22/17 08:59 08/24/17 12:32 Ceftriaxone Sodium 1 gm/ Sodium Chloride 55 ml @ 110 mls/hr Q24H IVPB 08/22/17 10:00 08/29/17 09:59 08/24/17 09:55 Citalopram Hydrobromide (celeXA) 20 mg DAILY ORAL 08/22/17 09:00 09/18/17 08:59 08/24/17 08:45 Clonidine HCl (Catapres) 0.1 mg Q6H PRN NG SBP > 160mmHg 08/23/17 08:30 09/22/17 08:29 Dextrose (Dextrose 50%) STAT PRN IV Hypoglycemia 08/21/17 20:00 09/20/17 19:59 08/23/17 09:58 Ferrous Sulfate (Feosol) 325 mg DAILY ORAL 08/22/17 09:00 09/18/17 08:59 08/24/17 08:45 Insulin Aspart (NovoLOG) EVERY 4 HOURS SUBQ 08/21/17 21:00 09/19/17 08:59 08/24/17 12:34 Insulin Detemir (Levemir) 10 units EVERY 12 HOURS SUBQ 08/23/17 09:00 09/22/17 08:59 08/23/17 21:12 Lansoprazole (Prevacid) 30 mg DAILY NG 08/24/17 09:00 09/23/17 08:59 08/24/17 09:00 Levothyroxine Sodium (Synthroid) 75 mcg ACBREAKFAST NG 08/24/17 06:30 09/23/17 06:29 08/24/17 06:05 Lorazepam (Ativan) 0.5 mg Q8H PRN NG For Anxiety 08/23/17 12:00 08/30/17 11:59 Losartan Potassium (Cozaar) 50 mg DAILY NG 08/23/17 09:00 09/22/17 08:59 08/24/17 08:44 Multivitamins (Multivitamins) 1 tab DAILY ORAL 08/22/17 09:00 09/18/17 08:59 08/24/17 08:45 Ondansetron HCl (Zofran) 4 mg Q6H PRN ORAL Nausea & Vomiting 08/21/17 20:00 09/18/17 07:59 Oxycodone/ Acetaminophen (Percocet 5-325) 1 tab Q6H PRN ORAL Severe Breakthrough Pain 08/21/17 20:00 08/26/17 07:59 08/24/17 10:11 PATRICIA LUGO Aug 24, 2017 16:04
[2017-08-24 16:07] VITALS: BP 118/60
[2017-08-24] MEDS: KCl 10% 40mEq/30ml liquid NG SCH (17:40)
[2017-08-24 20:00] VITALS: BP_SYST 106; BP_SYST 110; BP_DIAS 58; BP_DIAS 60
[2017-08-25] VITALS (7 sets, daily range): BP systolic 92–129; BP diastolic 55–68
[2017-08-25] MEDS: NovoLOG Insulin Flexpen SUBQ SCH ×6 (00:50→21:09)
[2017-08-25] MEDS: oxyCODONE HCL/Acetaminophen 5/325mg ORAL PRN ×3 (03:17→20:28)
[2017-08-25 05:41] LABS: HEMATOCRIT 25.2 % (37.0-47.0); HEMOGLOBIN 8.3 G/DL (12.0-16.0); MEAN CORPUSCULAR VOLUME 100 FL (80-99); PLATELET COUNT 105 K/UL (150-450); RED BLOOD COUNT 2.51 M/UL (4.20-5.40); RED CELL DISTRIBUTION WIDTH 15.5 % (11.6-14.8); WHITE BLOOD COUNT 19.8 K/UL (4.8-10.8)
[2017-08-25 07:13] LABS: ALANINE AMINOTRANSFERASE 30 U/L (3-33); ALBUMIN 1.7 g/dL (3.5-5.2); ALBUMIN/GLOBULIN RATIO 0.4 (1.0-2.7); ALKALINE PHOSPHATASE 207 U/L (35-104); ANION GAP 9 (5-15); ASPARTATE AMINO TRANSFERASE 36 U/L (5-40); BILIRUBIN,TOTAL 0.2 mg/dL (0.0-1.2); BLOOD UREA NITROGEN 15 mg/dL (7-23); CALCIUM 8.8 mg/dL (8.6-10.2); CARBON DIOXIDE 33 mEQ/L (20-30); CHLORIDE 102 mEQ/L (98-107); CREATININE 0.4 mg/dL (0.5-0.9); POTASSIUM 3.7 mEQ/L (3.4-4.9); SODIUM 144 mEQ/L (135-145)
--- NOTE | 2017-08-25 08:44 | General Progress Note ---
Assessment/Plan Assessment/Plan Assessment - Respiratory failure - leukocytosis - UTI - Anemia Recommendations - abx - optimize resp status - NGT feeds - will d/w family - PEG Mon or early next week Thank you Lauri Marroquin MD Subjective Allergies: Coded Allergies: No Known Allergies (Unverified , 08/18/17) Objective Last 24 Hour Vital Signs Date Time Temp Pulse Resp B/P (MAP) Pulse Ox O2 Delivery O2 Flow Rate FiO2 08/25/17 08:00 98.2 88 20 129/60 99 Venturi Mask 55 08/25/17 07:28 Venturi Mask 14.0 55 08/25/17 07:24 100 Venturi Mask 14.0 55 08/25/17 04:16 97.9 08/25/17 04:00 84 08/25/17 04:00 95.0 79 18 110/55 100 Non-Rebreather 08/25/17 03:20 112/68 08/25/17 00:06 97.9 82 20 102/55 100 Non-Rebreather 08/25/17 00:00 83 08/24/17 20:06 Non-Rebreather 15.0 100 08/24/17 20:06 99 Non-Rebreather 15.0 100 08/24/17 20:00 97.5 74 18 106/60 100 Non-Rebreather 100 08/24/17 20:00 96.0 77 20 110/58 100 Non-Rebreather 100 08/24/17 20:00 81 08/24/17 16:07 97.9 76 17 118/60 100 Non-Rebreather 100 08/24/17 16:00 75 08/24/17 12:00 98.1 83 20 123/63 100 Non-Rebreather 100 08/24/17 12:00 81 08/24/17 08:45 80 120/80 08/24/17 08:44 120/80 Laboratory Tests 08/25/17 03:40: White Blood Count 19.8H, Red Blood Count 2.51L, Hemoglobin 8.3L, Hematocrit 25.2L, Mean Corpuscular Volume 100H, Mean Corpuscular Hemoglobin 32.9H, Mean Corpuscular Hemoglobin Concent 32.8, Red Cell Distribution Width 15.5H, Platelet Count 105L, Mean Platelet Volume 9.9, Neutrophils (%) (Auto) , Lymphocytes (%) (Auto) , Monocytes (%) (Auto) , Eosinophils (%) (Auto) , Basophils (%) (Auto) , Differential Total Cells Counted 100, Neutrophils % ( Manual) 89H, Lymphocytes % (Manual) 5L, Monocytes % (Manual) 6, Eosinophils % ( Manual) 0, Basophils % (Manual) 0, Band Neutrophils 0, Platelet Estimate DecreasedL, Platelet Morphology Normal, Hypochromasia 1+, Anisocytosis 1+, Macrocytosis 1+, Sodium Level 144, Potassium Level 3.7, Chloride Level 102, Carbon Dioxide Level 33H, Anion Gap 9, Blood Urea Nitrogen 15, Creatinine 0.4L, Estimat Glomerular Filtration Rate > 60, Glucose Level 110H, Calcium Level 8.8, Total Bilirubin 0.2, Aspartate Amino Transf (AST/SGOT) 36, Alanine Aminotransferase (ALT/SGPT) 30, Alkaline Phosphatase 207H, Pro-B-Type Natriuretic Peptide 1147H, Total Protein 5.2L, Albumin 1.7L, Globulin 3.5, Albumin/Globulin Ratio 0.4L Height (Feet): 5 Height (Inches): 3.00 Weight (Pounds): 122 LAURI MARROQUIN Aug 25, 2017 08:44
[2017-08-25] MEDS: Losartan 50mg tab NG SCH (09:17)
[2017-08-25] MEDS: Ascorbic Acid 500mg tab NG SCH (09:17)
[2017-08-25] MEDS: Citalopram Hydrobromide 10mg Tab ORAL SCH (09:17)
[2017-08-25] MEDS: KCl 10% 40mEq/30ml liquid NG SCH ×2 (09:17→17:53)
[2017-08-25] MEDS: Levemir Flexpen SUBQ SCH ×2 (09:20→21:08)
[2017-08-25] MEDS: cefTRIAXone 1 GM in NS 55 ML IVPB SCH (09:53)
--- NOTE | 2017-08-25 13:22 | Pulmonology Progress Note ---
Assessment/Plan Assessment/Plan DKA, resolved DM w hypoglycemia, now stable UTI sepsis, WBC rising htn anxiety, depression chronic pain on meds, dc IV Morphine AMS, improved but still confused lactic acidosis respiratory failure, interstitial edema high WBC cont rx ceftriaxone, new cultures, c diff DM rx per Dr Andrade rx UTI, sepsis f/u CXR w CHF BNP better disc w , RN PEG per GI Subjective Allergies: Coded Allergies: No Known Allergies (Unverified , 08/18/17) Objective Last 24 Hour Vital Signs Date Time Temp Pulse Resp B/P (MAP) Pulse Ox O2 Delivery O2 Flow Rate FiO2 08/25/17 12:00 94 08/25/17 12:00 98.8 98 19 118/67 100 Venturi Mask 100 08/25/17 09:17 129/60 08/25/17 09:17 88 129/60 08/25/17 08:00 98.2 88 20 129/60 99 Venturi Mask 55 08/25/17 07:36 86 08/25/17 07:28 Venturi Mask 14.0 55 08/25/17 07:24 100 Venturi Mask 14.0 55 08/25/17 04:16 97.9 08/25/17 04:00 84 08/25/17 04:00 95.0 79 18 110/55 100 Non-Rebreather 08/25/17 03:20 112/68 08/25/17 00:06 97.9 82 20 102/55 100 Non-Rebreather 08/25/17 00:00 83 08/24/17 20:06 Non-Rebreather 15.0 100 08/24/17 20:06 99 Non-Rebreather 15.0 100 08/24/17 20:00 97.5 74 18 106/60 100 Non-Rebreather 100 08/24/17 20:00 96.0 77 20 110/58 100 Non-Rebreather 100 08/24/17 20:00 81 08/24/17 16:07 97.9 76 17 118/60 100 Non-Rebreather 100 08/24/17 16:00 75 General Appearance: no acute distress HEENT: atraumatic Respiratory/Chest: lungs clear Laboratory Tests 08/25/17 03:40: White Blood Count 19.8H, Red Blood Count 2.51L, Hemoglobin 8.3L, Hematocrit 25.2L, Mean Corpuscular Volume 100H, Mean Corpuscular Hemoglobin 32.9H, Mean Corpuscular Hemoglobin Concent 32.8, Red Cell Distribution Width 15.5H, Platelet Count 105L, Mean Platelet Volume 9.9, Neutrophils (%) (Auto) , Lymphocytes (%) (Auto) , Monocytes (%) (Auto) , Eosinophils (%) (Auto) , Basophils (%) (Auto) , Differential Total Cells Counted 100, Neutrophils % ( Manual) 89H, Lymphocytes % (Manual) 5L, Monocytes % (Manual) 6, Eosinophils % ( Manual) 0, Basophils % (Manual) 0, Band Neutrophils 0, Platelet Estimate DecreasedL, Platelet Morphology Normal, Hypochromasia 1+, Anisocytosis 1+, Macrocytosis 1+, Sodium Level 144, Potassium Level 3.7, Chloride Level 102, Carbon Dioxide Level 33H, Anion Gap 9, Blood Urea Nitrogen 15, Creatinine 0.4L, Estimat Glomerular Filtration Rate > 60, Glucose Level 110H, Calcium Level 8.8, Total Bilirubin 0.2, Aspartate Amino Transf (AST/SGOT) 36, Alanine Aminotransferase (ALT/SGPT) 30, Alkaline Phosphatase 207H, Pro-B-Type Natriuretic Peptide 1147H, Total Protein 5.2L, Albumin 1.7L, Globulin 3.5, Albumin/Globulin Ratio 0.4L Current Medications Medications (Trade) Dose Ordered Sig/Adonay Route PRN Reason Start Time Stop Time Status Last Admin Dose Admin Acetaminophen (Tylenol) 650 mg Q6H PRN ORAL Mild Pain/Temp > 100.5 08/21/17 20:00 09/18/17 07:59 Amlodipine Besylate (Norvasc) 10 mg DAILY NG 08/23/17 09:00 09/22/17 08:59 08/25/17 09:17 Ascorbic Acid (Vitamin C) 500 mg DAILY NG 08/23/17 09:00 09/22/17 08:59 08/25/17 09:17 Baclofen (Lioresal) 10 mg THREE TIMES A DAY NG 08/23/17 09:00 09/22/17 08:59 08/25/17 13:13 Ceftriaxone Sodium 1 gm/ Sodium Chloride 55 ml @ 110 mls/hr Q24H IVPB 08/22/17 10:00 08/29/17 09:59 08/25/17 09:53 Citalopram Hydrobromide (celeXA) 20 mg DAILY ORAL 08/22/17 09:00 09/18/17 08:59 08/25/17 09:17 Clonidine HCl (Catapres) 0.1 mg Q6H PRN NG SBP > 160mmHg 08/23/17 08:30 09/22/17 08:29 Dextrose (Dextrose 50%) STAT PRN IV Hypoglycemia 08/21/17 20:00 09/20/17 19:59 08/23/17 09:58 Ferrous Sulfate (Feosol) 325 mg DAILY ORAL 08/22/17 09:00 09/18/17 08:59 08/25/17 09:17 Furosemide (Lasix) 20 mg EVERY 12 HOURS IV 08/24/17 18:00 09/23/17 17:59 08/25/17 09:16 Insulin Aspart (NovoLOG) EVERY 4 HOURS SUBQ 08/21/17 21:00 09/19/17 08:59 08/25/17 13:16 Insulin Detemir (Levemir) 10 units EVERY 12 HOURS SUBQ 08/23/17 09:00 09/22/17 08:59 08/25/17 09:20 Lansoprazole (Prevacid) 30 mg DAILY NG 08/24/17 09:00 09/23/17 08:59 08/25/17 09:17 Levothyroxine Sodium (Synthroid) 75 mcg ACBREAKFAST NG 08/24/17 06:30 09/23/17 06:29 08/25/17 06:00 Lorazepam (Ativan) 0.5 mg Q8H PRN NG For Anxiety 08/23/17 12:00 08/30/17 11:59 Losartan Potassium (Cozaar) 50 mg DAILY NG 08/23/17 09:00 09/22/17 08:59 08/25/17 09:17 Multivitamins (Multivitamins) 1 tab DAILY ORAL 08/22/17 09:00 09/18/17 08:59 08/25/17 09:18 Ondansetron HCl (Zofran) 4 mg Q6H PRN ORAL Nausea & Vomiting 08/21/17 20:00 09/18/17 07:59 08/25/17 09:52 Oxycodone/ Acetaminophen (Percocet 5-325) 1 tab Q6H PRN ORAL Severe Breakthrough Pain 08/21/17 20:00 08/26/17 07:59 08/25/17 03:17 Potassium Chloride (KCl 10% 40mEq Oral solution) 40 meq TWICE A DAY NG 08/24/17 18:00 09/23/17 17:59 08/25/17 09:17 PATRICIA LUGO Aug 25, 2017 13:22
[2017-08-25 16:05] LABS: APPEARANCE,URINE CLEAR; BILIRUBIN, URINE NEGATIVE (NEGATIVE); GLUCOSE, URINE (UA) NEGATIVE (NEGATIVE); KETONES,URINE NEGATIVE (NEGATIVE); LEUKOCYTE ESTERASE ,URINE 1+ (NEGATIVE); NITRITE,URINE NEGATIVE (NEGATIVE); PH,URINE 6 (4.5-8.0); PROTEIN,URINE NEGATIVE (NEGATIVE); UROBILINOGEN,URINE 1 MG/DL (0.0-1.0)
[2017-08-25 16:09] LABS: COLOR,URINE YELLOW
--- NOTE | 2017-08-25 18:51 | General Progress Note ---
Assessment/Plan Problem List: (1) DKA (diabetic ketoacidoses) ICD Codes: E13.10 - Other specified diabetes mellitus with ketoacidosis without coma SNOMED: 04633102, 177342502 (2) Altered level of consciousness ICD Codes: R40.4 - Transient alteration of awareness SNOMED: 7147661 (3) Hyperkalemia ICD Codes: E87.5 - Hyperkalemia SNOMED: 24421471 (4) Rhabdomyolysis ICD Codes: M62.82 - Rhabdomyolysis SNOMED: 103878178, 846192407 (5) Diabetes mellitus out of control ICD Codes: E11.65 - Type 2 diabetes mellitus with hyperglycemia SNOMED: 189269111, 38916015 (6) Sepsis ICD Codes: A41.9 - Sepsis, unspecified organism SNOMED: 19964738 (7) Hypothyroidism ICD Codes: E03.9 - Hypothyroidism, unspecified SNOMED: 71244570 Assessment/Plan continue Levemir to 10 units bid continue Novolog sliding scale ac / hs continue Levothyroxine 75 mcg daily Subjective ROS Limited/Unobtainable: Yes Allergies: Coded Allergies: No Known Allergies (Unverified , 08/18/17) Subjective events noted - interval notes reviewed Objective Last 24 Hour Vital Signs Date Time Temp Pulse Resp B/P (MAP) Pulse Ox O2 Delivery O2 Flow Rate FiO2 08/25/17 16:00 97.9 84 20 92/58 99 Non-Rebreather 100 08/25/17 15:39 85 08/25/17 12:00 94 08/25/17 12:00 98.8 98 19 118/67 100 Venturi Mask 100 08/25/17 09:17 129/60 08/25/17 09:17 88 129/60 08/25/17 08:00 98.2 88 20 129/60 99 Venturi Mask 55 08/25/17 07:36 86 08/25/17 07:28 Venturi Mask 14.0 55 08/25/17 07:24 100 Venturi Mask 14.0 55 08/25/17 04:16 97.9 08/25/17 04:00 84 08/25/17 04:00 95.0 79 18 110/55 100 Non-Rebreather 08/25/17 03:20 112/68 08/25/17 00:06 97.9 82 20 102/55 100 Non-Rebreather 08/25/17 00:00 83 08/24/17 20:06 Non-Rebreather 15.0 100 08/24/17 20:06 99 Non-Rebreather 15.0 100 08/24/17 20:00 97.5 74 18 106/60 100 Non-Rebreather 100 08/24/17 20:00 96.0 77 20 110/58 100 Non-Rebreather 100 08/24/17 20:00 81 Intake and Output 08/25/17 08/26/17 19:00 07:00 Intake Total 1170 ml Output Total 1150 ml Balance 20 ml IV Total 55 ml Tube Feeding 605 ml Other 510 ml Output Urine Total 1150 ml Laboratory Tests 08/25/17 03:40: White Blood Count 19.8H, Red Blood Count 2.51L, Hemoglobin 8.3L, Hematocrit 25.2L, Mean Corpuscular Volume 100H, Mean Corpuscular Hemoglobin 32.9H, Mean Corpuscular Hemoglobin Concent 32.8, Red Cell Distribution Width 15.5H, Platelet Count 105L, Mean Platelet Volume 9.9, Neutrophils (%) (Auto) , Lymphocytes (%) (Auto) , Monocytes (%) (Auto) , Eosinophils (%) (Auto) , Basophils (%) (Auto) , Differential Total Cells Counted 100, Neutrophils % ( Manual) 89H, Lymphocytes % (Manual) 5L, Monocytes % (Manual) 6, Eosinophils % ( Manual) 0, Basophils % (Manual) 0, Band Neutrophils 0, Platelet Estimate DecreasedL, Platelet Morphology Normal, Hypochromasia 1+, Anisocytosis 1+, Macrocytosis 1+, Sodium Level 144, Potassium Level 3.7, Chloride Level 102, Carbon Dioxide Level 33H, Anion Gap 9, Blood Urea Nitrogen 15, Creatinine 0.4L, Estimat Glomerular Filtration Rate > 60, Glucose Level 110H, Calcium Level 8.8, Total Bilirubin 0.2, Aspartate Amino Transf (AST/SGOT) 36, Alanine Aminotransferase (ALT/SGPT) 30, Alkaline Phosphatase 207H, Pro-B-Type Natriuretic Peptide 1147H, Total Protein 5.2L, Albumin 1.7L, Globulin 3.5, Albumin/Globulin Ratio 0.4L 08/25/17 15:30: Urine Color Yellow, Urine Appearance Clear, Urine pH 6, Urine Specific [place] 1.010, Urine Protein Negative, Urine Glucose (UA) Negative, Urine Ketones Negative, Urine Occult Blood Negative, Urine Nitrite Negative, Urine Bilirubin Negative, Urine Urobilinogen 1H, Urine Leukocyte Esterase 1+H, Urine RBC 0-2, Urine WBC 0-2, Urine Squamous Epithelial Cells Occasional, Urine Bacteria None, Urine Yeast ModerateH Height (Feet): 5 Height (Inches): 3.00 Weight (Pounds): 122 General Appearance: no apparent distress Neck: normal alignment Cardiovascular: regular rhythm Respiratory/Chest: decreased breath sounds Abdomen: normal bowel sounds Objective Current Medications Medications (Trade) Dose Ordered Sig/Adonay Route PRN Reason Start Time Stop Time Status Last Admin Dose Admin Acetaminophen (Tylenol) 650 mg Q6H PRN ORAL Mild Pain/Temp > 100.5 08/21/17 20:00 09/18/17 07:59 Amlodipine Besylate (Norvasc) 10 mg DAILY NG 08/23/17 09:00 09/22/17 08:59 08/25/17 09:17 Ascorbic Acid (Vitamin C) 500 mg DAILY NG 08/23/17 09:00 09/22/17 08:59 08/25/17 09:17 Baclofen (Lioresal) 10 mg THREE TIMES A DAY NG 08/23/17 09:00 09/22/17 08:59 08/25/17 17:53 Ceftriaxone Sodium 1 gm/ Sodium Chloride 55 ml @ 110 mls/hr Q24H IVPB 08/22/17 10:00 08/29/17 09:59 08/25/17 09:53 Citalopram Hydrobromide (celeXA) 20 mg DAILY ORAL 08/22/17 09:00 09/18/17 08:59 08/25/17 09:17 Clonidine HCl (Catapres) 0.1 mg Q6H PRN NG SBP > 160mmHg 08/23/17 08:30 09/22/17 08:29 Dextrose (Dextrose 50%) STAT PRN IV Hypoglycemia 08/21/17 20:00 09/20/17 19:59 08/23/17 09:58 Ferrous Sulfate (Feosol) 325 mg DAILY ORAL 08/22/17 09:00 09/18/17 08:59 08/25/17 09:17 Furosemide (Lasix) 20 mg EVERY 12 HOURS IV 08/24/17 18:00 09/23/17 17:59 08/25/17 09:16 Insulin Aspart (NovoLOG) EVERY 4 HOURS SUBQ 08/21/17 21:00 09/19/17 08:59 08/25/17 16:42 Insulin Detemir (Levemir) 10 units EVERY 12 HOURS SUBQ 08/23/17 09:00 09/22/17 08:59 08/25/17 09:20 Lansoprazole (Prevacid) 30 mg DAILY NG 08/24/17 09:00 09/23/17 08:59 08/25/17 09:17 Levothyroxine Sodium (Synthroid) 75 mcg ACBREAKFAST NG 08/24/17 06:30 09/23/17 06:29 08/25/17 06:00 Lorazepam (Ativan) 0.5 mg Q8H PRN NG For Anxiety 08/23/17 12:00 08/30/17 11:59 Losartan Potassium (Cozaar) 50 mg DAILY NG 08/23/17 09:00 09/22/17 08:59 08/25/17 09:17 Multivitamins (Multivitamins) 1 tab DAILY ORAL 08/22/17 09:00 09/18/17 08:59 08/25/17 09:18 Ondansetron HCl (Zofran) 4 mg Q6H PRN ORAL Nausea & Vomiting 08/21/17 20:00 09/18/17 07:59 08/25/17 09:52 Oxycodone/ Acetaminophen (Percocet 5-325) 1 tab Q6H PRN ORAL Severe Breakthrough Pain 08/21/17 20:00 08/26/17 07:59 08/25/17 13:38 Potassium Chloride (KCl 10% 40mEq Oral solution) 40 meq TWICE A DAY NG 08/24/17 18:00 09/23/17 17:59 08/25/17 17:53 Item Value Date Time Bedside Blood Glucose 120 mg/dl 08/25/17 1642 Bedside Blood Glucose 165 mg/dl H 08/25/17 1316 Bedside Blood Glucose 152 mg/dl H 08/25/17 0921 Bedside Blood Glucose 121 mg/dl H 08/25/17 0433 KAYLEE DARNELL Aug 25, 2017 18:51
--- NOTE | 2017-08-25 18:51 | General Progress Note ---
Assessment/Plan Problem List: (1) DKA (diabetic ketoacidoses) ICD Codes: E13.10 - Other specified diabetes mellitus with ketoacidosis without coma SNOMED: 34595487, 268695824 (2) Altered level of consciousness ICD Codes: R40.4 - Transient alteration of awareness SNOMED: 8734164 (3) Hyperkalemia ICD Codes: E87.5 - Hyperkalemia SNOMED: 30540744 (4) Rhabdomyolysis ICD Codes: M62.82 - Rhabdomyolysis SNOMED: 939245219, 443816029 (5) Diabetes mellitus out of control ICD Codes: E11.65 - Type 2 diabetes mellitus with hyperglycemia SNOMED: 139661454, 06731800 (6) Sepsis ICD Codes: A41.9 - Sepsis, unspecified organism SNOMED: 99871868 (7) Hypothyroidism ICD Codes: E03.9 - Hypothyroidism, unspecified SNOMED: 64729756 Assessment/Plan continue Levemir to 10 units bid continue Novolog sliding scale ac / hs continue Levothyroxine 75 mcg daily Subjective ROS Limited/Unobtainable: Yes Allergies: Coded Allergies: No Known Allergies (Unverified , 08/18/17) Subjective events noted - interval notes reviewed Objective Last 24 Hour Vital Signs Date Time Temp Pulse Resp B/P (MAP) Pulse Ox O2 Delivery O2 Flow Rate FiO2 08/25/17 16:00 97.9 84 20 92/58 99 Non-Rebreather 100 08/25/17 15:39 85 08/25/17 12:00 94 08/25/17 12:00 98.8 98 19 118/67 100 Venturi Mask 100 08/25/17 09:17 129/60 08/25/17 09:17 88 129/60 08/25/17 08:00 98.2 88 20 129/60 99 Venturi Mask 55 08/25/17 07:36 86 08/25/17 07:28 Venturi Mask 14.0 55 08/25/17 07:24 100 Venturi Mask 14.0 55 08/25/17 04:16 97.9 08/25/17 04:00 84 08/25/17 04:00 95.0 79 18 110/55 100 Non-Rebreather 08/25/17 03:20 112/68 08/25/17 00:06 97.9 82 20 102/55 100 Non-Rebreather 08/25/17 00:00 83 08/24/17 20:06 Non-Rebreather 15.0 100 08/24/17 20:06 99 Non-Rebreather 15.0 100 08/24/17 20:00 97.5 74 18 106/60 100 Non-Rebreather 100 08/24/17 20:00 96.0 77 20 110/58 100 Non-Rebreather 100 08/24/17 20:00 81 Intake and Output 08/25/17 08/26/17 19:00 07:00 Intake Total 1170 ml Output Total 1150 ml Balance 20 ml IV Total 55 ml Tube Feeding 605 ml Other 510 ml Output Urine Total 1150 ml Laboratory Tests 08/25/17 03:40: White Blood Count 19.8H, Red Blood Count 2.51L, Hemoglobin 8.3L, Hematocrit 25.2L, Mean Corpuscular Volume 100H, Mean Corpuscular Hemoglobin 32.9H, Mean Corpuscular Hemoglobin Concent 32.8, Red Cell Distribution Width 15.5H, Platelet Count 105L, Mean Platelet Volume 9.9, Neutrophils (%) (Auto) , Lymphocytes (%) (Auto) , Monocytes (%) (Auto) , Eosinophils (%) (Auto) , Basophils (%) (Auto) , Differential Total Cells Counted 100, Neutrophils % ( Manual) 89H, Lymphocytes % (Manual) 5L, Monocytes % (Manual) 6, Eosinophils % ( Manual) 0, Basophils % (Manual) 0, Band Neutrophils 0, Platelet Estimate DecreasedL, Platelet Morphology Normal, Hypochromasia 1+, Anisocytosis 1+, Macrocytosis 1+, Sodium Level 144, Potassium Level 3.7, Chloride Level 102, Carbon Dioxide Level 33H, Anion Gap 9, Blood Urea Nitrogen 15, Creatinine 0.4L, Estimat Glomerular Filtration Rate > 60, Glucose Level 110H, Calcium Level 8.8, Total Bilirubin 0.2, Aspartate Amino Transf (AST/SGOT) 36, Alanine Aminotransferase (ALT/SGPT) 30, Alkaline Phosphatase 207H, Pro-B-Type Natriuretic Peptide 1147H, Total Protein 5.2L, Albumin 1.7L, Globulin 3.5, Albumin/Globulin Ratio 0.4L 08/25/17 15:30: Urine Color Yellow, Urine Appearance Clear, Urine pH 6, Urine Specific [place] 1.010, Urine Protein Negative, Urine Glucose (UA) Negative, Urine Ketones Negative, Urine Occult Blood Negative, Urine Nitrite Negative, Urine Bilirubin Negative, Urine Urobilinogen 1H, Urine Leukocyte Esterase 1+H, Urine RBC 0-2, Urine WBC 0-2, Urine Squamous Epithelial Cells Occasional, Urine Bacteria None, Urine Yeast ModerateH Height (Feet): 5 Height (Inches): 3.00 Weight (Pounds): 122 General Appearance: no apparent distress Neck: normal alignment Cardiovascular: regular rhythm Respiratory/Chest: decreased breath sounds Abdomen: normal bowel sounds Objective Current Medications Medications (Trade) Dose Ordered Sig/Adonay Route PRN Reason Start Time Stop Time Status Last Admin Dose Admin Acetaminophen (Tylenol) 650 mg Q6H PRN ORAL Mild Pain/Temp > 100.5 08/21/17 20:00 09/18/17 07:59 Amlodipine Besylate (Norvasc) 10 mg DAILY NG 08/23/17 09:00 09/22/17 08:59 08/25/17 09:17 Ascorbic Acid (Vitamin C) 500 mg DAILY NG 08/23/17 09:00 09/22/17 08:59 08/25/17 09:17 Baclofen (Lioresal) 10 mg THREE TIMES A DAY NG 08/23/17 09:00 09/22/17 08:59 08/25/17 17:53 Ceftriaxone Sodium 1 gm/ Sodium Chloride 55 ml @ 110 mls/hr Q24H IVPB 08/22/17 10:00 08/29/17 09:59 08/25/17 09:53 Citalopram Hydrobromide (celeXA) 20 mg DAILY ORAL 08/22/17 09:00 09/18/17 08:59 08/25/17 09:17 Clonidine HCl (Catapres) 0.1 mg Q6H PRN NG SBP > 160mmHg 08/23/17 08:30 09/22/17 08:29 Dextrose (Dextrose 50%) STAT PRN IV Hypoglycemia 08/21/17 20:00 09/20/17 19:59 08/23/17 09:58 Ferrous Sulfate (Feosol) 325 mg DAILY ORAL 08/22/17 09:00 09/18/17 08:59 08/25/17 09:17 Furosemide (Lasix) 20 mg EVERY 12 HOURS IV 08/24/17 18:00 09/23/17 17:59 08/25/17 09:16 Insulin Aspart (NovoLOG) EVERY 4 HOURS SUBQ 08/21/17 21:00 09/19/17 08:59 08/25/17 16:42 Insulin Detemir (Levemir) 10 units EVERY 12 HOURS SUBQ 08/23/17 09:00 09/22/17 08:59 08/25/17 09:20 Lansoprazole (Prevacid) 30 mg DAILY NG 08/24/17 09:00 09/23/17 08:59 08/25/17 09:17 Levothyroxine Sodium (Synthroid) 75 mcg ACBREAKFAST NG 08/24/17 06:30 09/23/17 06:29 08/25/17 06:00 Lorazepam (Ativan) 0.5 mg Q8H PRN NG For Anxiety 08/23/17 12:00 08/30/17 11:59 Losartan Potassium (Cozaar) 50 mg DAILY NG 08/23/17 09:00 09/22/17 08:59 08/25/17 09:17 Multivitamins (Multivitamins) 1 tab DAILY ORAL 08/22/17 09:00 09/18/17 08:59 08/25/17 09:18 Ondansetron HCl (Zofran) 4 mg Q6H PRN ORAL Nausea & Vomiting 08/21/17 20:00 09/18/17 07:59 08/25/17 09:52 Oxycodone/ Acetaminophen (Percocet 5-325) 1 tab Q6H PRN ORAL Severe Breakthrough Pain 08/21/17 20:00 08/26/17 07:59 08/25/17 13:38 Potassium Chloride (KCl 10% 40mEq Oral solution) 40 meq TWICE A DAY NG 08/24/17 18:00 09/23/17 17:59 08/25/17 17:53 Item Value Date Time Bedside Blood Glucose 120 mg/dl 08/25/17 1642 Bedside Blood Glucose 165 mg/dl H 08/25/17 1316 Bedside Blood Glucose 152 mg/dl H 08/25/17 0921 Bedside Blood Glucose 121 mg/dl H 08/25/17 0433 KAYLEE DARNELL Aug 25, 2017 18:51
--- NOTE | 2017-08-25 18:51 | General Progress Note ---
Assessment/Plan Problem List: (1) DKA (diabetic ketoacidoses) ICD Codes: E13.10 - Other specified diabetes mellitus with ketoacidosis without coma SNOMED: 26287374, 854583647 (2) Altered level of consciousness ICD Codes: R40.4 - Transient alteration of awareness SNOMED: 0961128 (3) Hyperkalemia ICD Codes: E87.5 - Hyperkalemia SNOMED: 02937609 (4) Rhabdomyolysis ICD Codes: M62.82 - Rhabdomyolysis SNOMED: 692313736, 542200337 (5) Diabetes mellitus out of control ICD Codes: E11.65 - Type 2 diabetes mellitus with hyperglycemia SNOMED: 718774980, 31622893 (6) Sepsis ICD Codes: A41.9 - Sepsis, unspecified organism SNOMED: 28544448 (7) Hypothyroidism ICD Codes: E03.9 - Hypothyroidism, unspecified SNOMED: 25107560 Assessment/Plan continue Levemir to 10 units bid continue Novolog sliding scale ac / hs continue Levothyroxine 75 mcg daily Subjective ROS Limited/Unobtainable: Yes Allergies: Coded Allergies: No Known Allergies (Unverified , 08/18/17) Subjective events noted - interval notes reviewed Objective Last 24 Hour Vital Signs Date Time Temp Pulse Resp B/P (MAP) Pulse Ox O2 Delivery O2 Flow Rate FiO2 08/25/17 16:00 97.9 84 20 92/58 99 Non-Rebreather 100 08/25/17 15:39 85 08/25/17 12:00 94 08/25/17 12:00 98.8 98 19 118/67 100 Venturi Mask 100 08/25/17 09:17 129/60 08/25/17 09:17 88 129/60 08/25/17 08:00 98.2 88 20 129/60 99 Venturi Mask 55 08/25/17 07:36 86 08/25/17 07:28 Venturi Mask 14.0 55 08/25/17 07:24 100 Venturi Mask 14.0 55 08/25/17 04:16 97.9 08/25/17 04:00 84 08/25/17 04:00 95.0 79 18 110/55 100 Non-Rebreather 08/25/17 03:20 112/68 08/25/17 00:06 97.9 82 20 102/55 100 Non-Rebreather 08/25/17 00:00 83 08/24/17 20:06 Non-Rebreather 15.0 100 08/24/17 20:06 99 Non-Rebreather 15.0 100 08/24/17 20:00 97.5 74 18 106/60 100 Non-Rebreather 100 08/24/17 20:00 96.0 77 20 110/58 100 Non-Rebreather 100 08/24/17 20:00 81 Intake and Output 08/25/17 08/26/17 19:00 07:00 Intake Total 1170 ml Output Total 1150 ml Balance 20 ml IV Total 55 ml Tube Feeding 605 ml Other 510 ml Output Urine Total 1150 ml Laboratory Tests 08/25/17 03:40: White Blood Count 19.8H, Red Blood Count 2.51L, Hemoglobin 8.3L, Hematocrit 25.2L, Mean Corpuscular Volume 100H, Mean Corpuscular Hemoglobin 32.9H, Mean Corpuscular Hemoglobin Concent 32.8, Red Cell Distribution Width 15.5H, Platelet Count 105L, Mean Platelet Volume 9.9, Neutrophils (%) (Auto) , Lymphocytes (%) (Auto) , Monocytes (%) (Auto) , Eosinophils (%) (Auto) , Basophils (%) (Auto) , Differential Total Cells Counted 100, Neutrophils % ( Manual) 89H, Lymphocytes % (Manual) 5L, Monocytes % (Manual) 6, Eosinophils % ( Manual) 0, Basophils % (Manual) 0, Band Neutrophils 0, Platelet Estimate DecreasedL, Platelet Morphology Normal, Hypochromasia 1+, Anisocytosis 1+, Macrocytosis 1+, Sodium Level 144, Potassium Level 3.7, Chloride Level 102, Carbon Dioxide Level 33H, Anion Gap 9, Blood Urea Nitrogen 15, Creatinine 0.4L, Estimat Glomerular Filtration Rate > 60, Glucose Level 110H, Calcium Level 8.8, Total Bilirubin 0.2, Aspartate Amino Transf (AST/SGOT) 36, Alanine Aminotransferase (ALT/SGPT) 30, Alkaline Phosphatase 207H, Pro-B-Type Natriuretic Peptide 1147H, Total Protein 5.2L, Albumin 1.7L, Globulin 3.5, Albumin/Globulin Ratio 0.4L 08/25/17 15:30: Urine Color Yellow, Urine Appearance Clear, Urine pH 6, Urine Specific [place] 1.010, Urine Protein Negative, Urine Glucose (UA) Negative, Urine Ketones Negative, Urine Occult Blood Negative, Urine Nitrite Negative, Urine Bilirubin Negative, Urine Urobilinogen 1H, Urine Leukocyte Esterase 1+H, Urine RBC 0-2, Urine WBC 0-2, Urine Squamous Epithelial Cells Occasional, Urine Bacteria None, Urine Yeast ModerateH Height (Feet): 5 Height (Inches): 3.00 Weight (Pounds): 122 General Appearance: no apparent distress Neck: normal alignment Cardiovascular: regular rhythm Respiratory/Chest: decreased breath sounds Abdomen: normal bowel sounds Objective Current Medications Medications (Trade) Dose Ordered Sig/Adonay Route PRN Reason Start Time Stop Time Status Last Admin Dose Admin Acetaminophen (Tylenol) 650 mg Q6H PRN ORAL Mild Pain/Temp > 100.5 08/21/17 20:00 09/18/17 07:59 Amlodipine Besylate (Norvasc) 10 mg DAILY NG 08/23/17 09:00 09/22/17 08:59 08/25/17 09:17 Ascorbic Acid (Vitamin C) 500 mg DAILY NG 08/23/17 09:00 09/22/17 08:59 08/25/17 09:17 Baclofen (Lioresal) 10 mg THREE TIMES A DAY NG 08/23/17 09:00 09/22/17 08:59 08/25/17 17:53 Ceftriaxone Sodium 1 gm/ Sodium Chloride 55 ml @ 110 mls/hr Q24H IVPB 08/22/17 10:00 08/29/17 09:59 08/25/17 09:53 Citalopram Hydrobromide (celeXA) 20 mg DAILY ORAL 08/22/17 09:00 09/18/17 08:59 08/25/17 09:17 Clonidine HCl (Catapres) 0.1 mg Q6H PRN NG SBP > 160mmHg 08/23/17 08:30 09/22/17 08:29 Dextrose (Dextrose 50%) STAT PRN IV Hypoglycemia 08/21/17 20:00 09/20/17 19:59 08/23/17 09:58 Ferrous Sulfate (Feosol) 325 mg DAILY ORAL 08/22/17 09:00 09/18/17 08:59 08/25/17 09:17 Furosemide (Lasix) 20 mg EVERY 12 HOURS IV 08/24/17 18:00 09/23/17 17:59 08/25/17 09:16 Insulin Aspart (NovoLOG) EVERY 4 HOURS SUBQ 08/21/17 21:00 09/19/17 08:59 08/25/17 16:42 Insulin Detemir (Levemir) 10 units EVERY 12 HOURS SUBQ 08/23/17 09:00 09/22/17 08:59 08/25/17 09:20 Lansoprazole (Prevacid) 30 mg DAILY NG 08/24/17 09:00 09/23/17 08:59 08/25/17 09:17 Levothyroxine Sodium (Synthroid) 75 mcg ACBREAKFAST NG 08/24/17 06:30 09/23/17 06:29 08/25/17 06:00 Lorazepam (Ativan) 0.5 mg Q8H PRN NG For Anxiety 08/23/17 12:00 08/30/17 11:59 Losartan Potassium (Cozaar) 50 mg DAILY NG 08/23/17 09:00 09/22/17 08:59 08/25/17 09:17 Multivitamins (Multivitamins) 1 tab DAILY ORAL 08/22/17 09:00 09/18/17 08:59 08/25/17 09:18 Ondansetron HCl (Zofran) 4 mg Q6H PRN ORAL Nausea & Vomiting 08/21/17 20:00 09/18/17 07:59 08/25/17 09:52 Oxycodone/ Acetaminophen (Percocet 5-325) 1 tab Q6H PRN ORAL Severe Breakthrough Pain 08/21/17 20:00 08/26/17 07:59 08/25/17 13:38 Potassium Chloride (KCl 10% 40mEq Oral solution) 40 meq TWICE A DAY NG 08/24/17 18:00 09/23/17 17:59 08/25/17 17:53 Item Value Date Time Bedside Blood Glucose 120 mg/dl 08/25/17 1642 Bedside Blood Glucose 165 mg/dl H 08/25/17 1316 Bedside Blood Glucose 152 mg/dl H 08/25/17 0921 Bedside Blood Glucose 121 mg/dl H 08/25/17 0433 KAYLEE DARNELL Aug 25, 2017 18:51
[2017-08-26] VITALS: BP 113/75
[2017-08-26] MEDS: NovoLOG Insulin Flexpen SUBQ SCH ×6 (00:52→20:17)
[2017-08-26 04:00] VITALS: BP 133/64
--- NOTE | 2017-08-26 04:16 | Consultation ---
DATE OF CONSULTATION: 08/25/2017 GASTROENTEROLOGY CONSULTATION Chief Complaint: I was asked to see this patient by Dr. Prabhu Winn for evaluation of dysphagia. History Of Present Illness: The patient is an unfortunate 67-year-old woman, who was admitted through the emergency room from a care home due to poor level of consciousness. She has been on some narcotics without significant improvement in her mental status when given Narcan. She had no nausea and vomiting, but was noted to be in respiratory distress. She has been placed on oxygen and her respiratory status is gradually improving. She was previously in the intensive care unit, but now is out and in the monitored room. She is not a good candidate for oral feeding and therefore this consultation for gastrostomy tube placement was requested. The patient herself agrees to the placement of gastrostomy tube. Subsequently, I have discussed the matter with the patient's son, who also agrees to proceed. Past Medical History: History of diabetes, dementia, hypertension, depression, anxiety, and chronic pain. MEDICATIONS: See the chart list for details. Social History: The patient is a care home resident and her son looks after her. FAMILY HISTORY: Noncontributory. REVIEW OF SYSTEMS: Otherwise negative. PHYSICAL EXAMINATION: General: The patient is a debilitated elderly woman, seen in her room. HEENT: Normocephalic and atraumatic. Facemask oxygen was on and nasogastric tube was in infusing tube feedings. NECK: Supple. CHEST: Revealed bilateral rhonchi and scattered wheezes. CARDIOVASCULAR: Revealed a regular rate. Abdomen: Soft and flat. Good bowel sounds. There is no organomegaly. EXTREMITIES: Revealed no edema. LABORATORY DATA: Noted. Assessment: This patient has respiratory failure and requires oxygen via facemask. She has an elevated white count, which is climbing. She is typically not a candidate for oral feeding at this time, but also her respiratory status is somewhat compromised. I would wait a few days for her respiratory status to improve and may perhaps her white count to decline. Once her status is improved, then endoscopy and gastrostomy tube can be done for her long-term enteral access. If the patient's oral intake and swallow function improve in the future, the gastrostomy tube can be removed at that time. Recommendations: Per above discussion and per orders written in the chart. Thank you for asking me to participate in the care of this patient. Lauri Marroquin M.D. DR: KELL JOB#: [id number] CC:
[2017-08-26 05:01] LABS: HEMOGLOBIN 8.2 G/DL (12.0-16.0); MEAN CORPUSCULAR VOLUME 102 FL (80-99); PLATELET COUNT 119 K/UL (150-450); RED BLOOD COUNT 2.45 M/UL (4.20-5.40); RED CELL DISTRIBUTION WIDTH 15.8 % (11.6-14.8); WHITE BLOOD COUNT 18.6 K/UL (4.8-10.8)
[2017-08-26 05:30] LABS: ALANINE AMINOTRANSFERASE 28 U/L (3-33); ALBUMIN/GLOBULIN RATIO 0.5 (1.0-2.7); ALKALINE PHOSPHATASE 216 U/L (35-104); ANION GAP 9 (5-15); ASPARTATE AMINO TRANSFERASE 36 U/L (5-40); BILIRUBIN,TOTAL 0.2 mg/dL (0.0-1.2); BLOOD UREA NITROGEN 24 mg/dL (7-23); CALCIUM 9.1 mg/dL (8.6-10.2); CARBON DIOXIDE 38 mEQ/L (20-30); CHLORIDE 104 mEQ/L (98-107); CREATININE 0.5 mg/dL (0.5-0.9); POTASSIUM 3.7 mEQ/L (3.4-4.9); SODIUM 151 mEQ/L (135-145)
[2017-08-26 08:00] VITALS: BP 138/55
[2017-08-26] MEDS: Losartan 50mg tab NG SCH (08:30)
[2017-08-26] MEDS: Citalopram Hydrobromide 10mg Tab ORAL SCH (08:30)
[2017-08-26] MEDS: KCl 10% 40mEq/30ml liquid NG SCH ×2 (08:30→18:17)
[2017-08-26] MEDS: Ascorbic Acid 500mg tab NG SCH (08:31)
[2017-08-26] MEDS: Levemir Flexpen SUBQ SCH ×2 (08:33→20:16)
[2017-08-26] MEDS: cefTRIAXone 1 GM in NS 55 ML IVPB SCH (10:07)
[2017-08-26] MEDS ORDERED: oxyCODONE HCL/Acetaminophen 5/325mg ORAL PRN (10:45)
--- NOTE | 2017-08-26 11:17 | Diagnostic Imaging Report ---
Indication: Shortness of breath Technique: XRAY CHEST 1 V Comparison: 08/24/17 Findings: Nasogastric tube is unchanged. Cardiomediastinal silhouette is stable. Interstitial and airspace opacities are again noted of the lungs bilaterally. Osseous structures are stable. Impression: No significant change from 08/24/17.
[2017-08-26 12:00] VITALS: BP 135/61
[2017-08-26 16:00] VITALS: BP 135/57
--- NOTE | 2017-08-26 16:27 | Pulmonology Progress Note ---
Assessment/Plan Assessment/Plan DKA, resolved DM w hypoglycemia, now stable UTI sepsis, WBC rising htn anxiety, depression chronic pain on meds, dc IV Morphine AMS, improved but still confused lactic acidosis respiratory failure, interstitial edema high WBC chf uti cont rx ceftriaxone, new cultures, c diff DM rx per Dr Andrade negative IO aspiration precautions BNP better disc w , RN and family at the bedside PEG per GI Subjective Allergies: Coded Allergies: No Known Allergies (Unverified , 08/18/17) Subjective more awake ngt in place adn toelrating feed no cp nv or bleeding nonambulatory no fever noted Objective Last 24 Hour Vital Signs Date Time Temp Pulse Resp B/P (MAP) Pulse Ox O2 Delivery O2 Flow Rate FiO2 08/26/17 12:00 97 20 135/61 100 Venturi Mask 100 08/26/17 08:30 136/71 08/26/17 08:30 90 136/71 08/26/17 08:00 99.1 94 17 138/55 100 Non-Rebreather 100 08/26/17 07:39 Non-Rebreather 15.0 100 08/26/17 07:38 93 08/26/17 07:38 97 Non-Rebreather 15.0 100 08/26/17 04:26 91 08/26/17 04:00 97.5 88 18 133/64 100 Non-Rebreather 100 08/26/17 00:00 97.7 80 20 113/75 100 Non-Rebreather 100 08/25/17 23:32 93 08/25/17 20:00 97.7 89 20 124/58 100 Non-Rebreather 100 08/25/17 19:53 91 Intake and Output 08/26/17 08/27/17 19:00 07:00 Intake Total 55 ml Balance 55 ml IV Total 55 ml General Appearance: cachetic HEENT: atraumatic, mucous membranes moist Respiratory/Chest: rhonchi Cardiovascular: normal rate, regular rhythm Abdomen: soft, non tender, no organomegaly Neurologic/Psychiatric: disoriented Lymphatic: no neck adenopathy, no groin adenopathy Microbiology Date/Time Source Procedure Growth Status 08/25/17 15:30 Urine,Clean Catch Urine Culture - Preliminary NO GROWTH Resulted Laboratory Tests 08/26/17 03:40: White Blood Count 18.6H, Red Blood Count 2.45L, Hemoglobin 8.2L, Hematocrit 25.0L, Mean Corpuscular Volume 102H, Mean Corpuscular Hemoglobin 33.5H, Mean Corpuscular Hemoglobin Concent 32.9, Red Cell Distribution Width 15.8H, Platelet Count 119L, Mean Platelet Volume 9.7, Neutrophils (%) (Auto) , Lymphocytes (%) (Auto) , Monocytes (%) (Auto) , Eosinophils (%) (Auto) , Basophils (%) (Auto) , Differential Total Cells Counted 100, Neutrophils % ( Manual) 93H, Lymphocytes % (Manual) 3L, Monocytes % (Manual) 3, Eosinophils % ( Manual) 0, Basophils % (Manual) 0, Band Neutrophils 1, Platelet Estimate DecreasedL, Platelet Morphology Normal, Hypochromasia 1+, Anisocytosis 1+, Macrocytosis 1+, Sodium Level 151H, Potassium Level 3.7, Chloride Level 104, Carbon Dioxide Level 38H, Anion Gap 9, Blood Urea Nitrogen 24H, Creatinine 0.5, Estimat Glomerular Filtration Rate > 60, Glucose Level 83, Calcium Level 9.1, Total Bilirubin 0.2, Aspartate Amino Transf (AST/SGOT) 36, Alanine Aminotransferase (ALT/SGPT) 28, Alkaline Phosphatase 216H, Total Protein 5.6L, Albumin 2.0L, Globulin 3.6, Albumin/Globulin Ratio 0.5L Current Medications Medications (Trade) Dose Ordered Sig/Adonay Route PRN Reason Start Time Stop Time Status Last Admin Dose Admin Acetaminophen (Tylenol) 650 mg Q6H PRN ORAL Mild Pain/Temp > 100.5 08/21/17 20:00 09/18/17 07:59 Amlodipine Besylate (Norvasc) 10 mg DAILY NG 08/23/17 09:00 09/22/17 08:59 08/26/17 08:30 Ascorbic Acid (Vitamin C) 500 mg DAILY NG 08/23/17 09:00 09/22/17 08:59 08/26/17 08:31 Baclofen (Lioresal) 10 mg THREE TIMES A DAY NG 08/23/17 09:00 09/22/17 08:59 08/26/17 12:49 Ceftriaxone Sodium 1 gm/ Sodium Chloride 55 ml @ 110 mls/hr Q24H IVPB 08/22/17 10:00 08/29/17 09:59 08/26/17 10:07 Citalopram Hydrobromide (celeXA) 20 mg DAILY GT 08/27/17 09:00 09/18/17 08:59 Clonidine HCl (Catapres) 0.1 mg Q6H PRN NG SBP > 160mmHg 08/23/17 08:30 09/22/17 08:29 Dextrose (Dextrose 50%) STAT PRN IV Hypoglycemia 08/21/17 20:00 09/20/17 19:59 08/23/17 09:58 Ferrous Sulfate (Feosol) 300 mg DAILY NG 08/27/17 09:00 09/26/17 08:59 Furosemide (Lasix) 20 mg EVERY 12 HOURS IV 08/24/17 18:00 09/23/17 17:59 08/26/17 08:31 Insulin Aspart (NovoLOG) EVERY 4 HOURS SUBQ 08/21/17 21:00 09/19/17 08:59 08/26/17 12:51 Insulin Detemir (Levemir) 10 units EVERY 12 HOURS SUBQ 08/23/17 09:00 09/22/17 08:59 08/26/17 08:33 Lansoprazole (Prevacid) 30 mg DAILY NG 08/24/17 09:00 09/23/17 08:59 08/26/17 08:30 Levothyroxine Sodium (Synthroid) 75 mcg ACBREAKFAST NG 08/24/17 06:30 09/23/17 06:29 08/26/17 06:00 Lorazepam (Ativan) 0.5 mg Q8H PRN NG For Anxiety 08/23/17 12:00 08/30/17 11:59 Losartan Potassium (Cozaar) 50 mg DAILY NG 08/23/17 09:00 09/22/17 08:59 08/26/17 08:30 Multivitamins (Multivitamins) 1 tab DAILY ORAL 08/22/17 09:00 09/18/17 08:59 08/26/17 08:31 Ondansetron HCl (Zofran) 4 mg Q6H PRN NG Nausea & Vomiting 08/26/17 15:30 09/18/17 07:59 Oxycodone/ Acetaminophen (Percocet 5-325) 1 tab Q6H PRN ORAL for severe breakthrough pain 08/26/17 15:30 09/02/17 10:44 Potassium Chloride (KCl 10% 40mEq Oral solution) 40 meq TWICE A DAY NG 08/24/17 18:00 09/23/17 17:59 08/26/17 08:30 JERO CALI DO Aug 26, 2017 16:27
[2017-08-26] MEDS: oxyCODONE HCL/Acetaminophen 5/325mg ORAL PRN (16:58)
[2017-08-26 20:00] VITALS: BP_SYST 135; BP_SYST 143; BP_DIAS 57; BP_DIAS 64
[2017-08-27] VITALS: BP 127/76
[2017-08-27] MEDS: NovoLOG Insulin Flexpen SUBQ SCH ×6 (01:00→21:18)
[2017-08-27] MEDS: oxyCODONE HCL/Acetaminophen 5/325mg ORAL PRN ×3 (02:44→16:53)
[2017-08-27 04:00] VITALS: BP 150/67
--- NOTE | 2017-08-27 06:38 | General Progress Note ---
Assessment/Plan Problem List: (1) DKA (diabetic ketoacidoses) ICD Codes: E13.10 - Other specified diabetes mellitus with ketoacidosis without coma SNOMED: 47114102, 388267341 (2) Altered level of consciousness ICD Codes: R40.4 - Transient alteration of awareness SNOMED: 1205630 (3) Hyperkalemia ICD Codes: E87.5 - Hyperkalemia SNOMED: 80194002 (4) Rhabdomyolysis ICD Codes: M62.82 - Rhabdomyolysis SNOMED: 761499363, 649589303 (5) Diabetes mellitus out of control ICD Codes: E11.65 - Type 2 diabetes mellitus with hyperglycemia SNOMED: 118229088, 41527495 (6) Sepsis ICD Codes: A41.9 - Sepsis, unspecified organism SNOMED: 96552888 (7) Hypothyroidism ICD Codes: E03.9 - Hypothyroidism, unspecified SNOMED: 90352188 Assessment/Plan reduce Levemir to 7 units bid continue Novolog sliding scale ac / hs continue Levothyroxine 75 mcg daily - TSH was normal on presentation and repeat value was elevated to 9 the reason for this change in value is Levothyroxine being held for couple of days after admission - no need to increase dosage repeat TFTs in 2 weeks Subjective ROS Limited/Unobtainable: Yes Allergies: Coded Allergies: No Known Allergies (Unverified , 08/18/17) Subjective events noted - interval notes reviewed hypoglycemic at 2 am noted TF is continuous and tolerated Objective Last 24 Hour Vital Signs Date Time Temp Pulse Resp B/P (MAP) Pulse Ox O2 Delivery O2 Flow Rate FiO2 08/27/17 04:00 98.9 88 20 150/67 100 Non-Rebreather 100 08/27/17 04:00 92 08/27/17 03:43 98.0 08/27/17 00:00 100 08/27/17 00:00 98.2 97 20 127/76 100 Venturi Mask 08/26/17 20:00 98.2 96 18 143/64 100 Non-Rebreather 15.0 96 08/26/17 20:00 96 08/26/17 20:00 99.4 101 19 135/57 100 Non-Rebreather 15.0 100 08/26/17 16:00 99.4 101 19 135/57 100 Non-Rebreather 100 08/26/17 15:49 94 10/7/17 12:00 97 20 135/61 100 Venturi Mask 100 08/26/17 11:41 97 08/26/17 08:30 136/71 08/26/17 08:30 90 136/71 08/26/17 08:00 99.1 94 17 138/55 100 Non-Rebreather 100 08/26/17 07:39 Non-Rebreather 15.0 100 08/26/17 07:38 93 08/26/17 07:38 97 Non-Rebreather 15.0 100 Height (Feet): 5 Height (Inches): 3.00 Weight (Pounds): 109 General Appearance: no apparent distress Neck: normal alignment Cardiovascular: normal rate Respiratory/Chest: decreased breath sounds Abdomen: normal bowel sounds Edema: no edema noted Arm (L), no edema noted Arm (R), no edema noted Leg (L), no edema noted Leg (R), no edema noted Pedal (L), no edema noted Pedal (R), no edema noted Generalized Objective Current Medications Medications (Trade) Dose Ordered Sig/Adonay Route PRN Reason Start Time Stop Time Status Last Admin Dose Admin Acetaminophen (Tylenol) 650 mg Q6H PRN ORAL Mild Pain/Temp > 100.5 08/21/17 20:00 09/18/17 07:59 Amlodipine Besylate (Norvasc) 10 mg DAILY NG 08/23/17 09:00 09/22/17 08:59 08/26/17 08:30 Ascorbic Acid (Vitamin C) 500 mg DAILY NG 08/23/17 09:00 09/22/17 08:59 08/26/17 08:31 Baclofen (Lioresal) 10 mg THREE TIMES A DAY NG 08/23/17 09:00 09/22/17 08:59 08/26/17 18:17 Ceftriaxone Sodium 1 gm/ Sodium Chloride 55 ml @ 110 mls/hr Q24H IVPB 08/22/17 10:00 08/29/17 09:59 08/26/17 10:07 Citalopram Hydrobromide (celeXA) 20 mg DAILY GT 08/27/17 09:00 09/18/17 08:59 Clonidine HCl (Catapres) 0.1 mg Q6H PRN NG SBP > 160mmHg 08/23/17 08:30 09/22/17 08:29 Dextrose (Dextrose 50%) STAT PRN IV Hypoglycemia 08/21/17 20:00 09/20/17 19:59 08/27/17 02:06 Ferrous Sulfate (Feosol) 300 mg DAILY NG 08/27/17 09:00 09/26/17 08:59 Furosemide (Lasix) 20 mg EVERY 12 HOURS IV 08/24/17 18:00 09/23/17 17:59 08/26/17 20:17 Insulin Aspart (NovoLOG) EVERY 4 HOURS SUBQ 08/21/17 21:00 09/19/17 08:59 08/27/17 04:56 Insulin Detemir (Levemir) 10 units EVERY 12 HOURS SUBQ 08/23/17 09:00 09/22/17 08:59 08/26/17 20:16 Lansoprazole (Prevacid) 30 mg DAILY NG 08/24/17 09:00 09/23/17 08:59 08/26/17 08:30 Levothyroxine Sodium (Synthroid) 75 mcg ACBREAKFAST NG 08/24/17 06:30 09/23/17 06:29 08/26/17 06:00 Lorazepam (Ativan) 0.5 mg Q8H PRN NG For Anxiety 08/23/17 12:00 08/30/17 11:59 Losartan Potassium (Cozaar) 50 mg DAILY NG 08/23/17 09:00 09/22/17 08:59 08/26/17 08:30 Multivitamins (Multivitamins) 1 tab DAILY ORAL 08/22/17 09:00 09/18/17 08:59 08/26/17 08:31 Ondansetron HCl (Zofran) 4 mg Q6H PRN NG Nausea & Vomiting 08/26/17 15:30 09/18/17 07:59 Oxycodone/ Acetaminophen (Percocet 5-325) 1 tab Q6H PRN ORAL for severe breakthrough pain 08/26/17 15:30 09/02/17 10:44 08/27/17 02:44 Potassium Chloride (KCl 10% 40mEq Oral solution) 40 meq TWICE A DAY NG 08/24/17 18:00 09/23/17 17:59 08/26/17 18:17 Item Value Date Time Bedside Blood Glucose 125 mg/dl H 08/27/17 0500 Bedside Blood Glucose 60 mg/dl L 08/27/176 Bedside Blood Glucose 186 mg/dl H 08/26/172016 Bedside Blood Glucose 99 mg/dl 08/26/17 1657 KAYLEE DARNELL Aug 27, 2017 06:38
--- NOTE | 2017-08-27 06:38 | General Progress Note ---
Assessment/Plan Problem List: (1) DKA (diabetic ketoacidoses) ICD Codes: E13.10 - Other specified diabetes mellitus with ketoacidosis without coma SNOMED: 05185152, 884641858 (2) Altered level of consciousness ICD Codes: R40.4 - Transient alteration of awareness SNOMED: 9853038 (3) Hyperkalemia ICD Codes: E87.5 - Hyperkalemia SNOMED: 13397630 (4) Rhabdomyolysis ICD Codes: M62.82 - Rhabdomyolysis SNOMED: 280794413, 697712221 (5) Diabetes mellitus out of control ICD Codes: E11.65 - Type 2 diabetes mellitus with hyperglycemia SNOMED: 113937621, 10854621 (6) Sepsis ICD Codes: A41.9 - Sepsis, unspecified organism SNOMED: 47922995 (7) Hypothyroidism ICD Codes: E03.9 - Hypothyroidism, unspecified SNOMED: 02096051 Assessment/Plan reduce Levemir to 7 units bid continue Novolog sliding scale ac / hs continue Levothyroxine 75 mcg daily - TSH was normal on presentation and repeat value was elevated to 9 the reason for this change in value is Levothyroxine being held for couple of days after admission - no need to increase dosage repeat TFTs in 2 weeks Subjective ROS Limited/Unobtainable: Yes Allergies: Coded Allergies: No Known Allergies (Unverified , 08/18/17) Subjective events noted - interval notes reviewed hypoglycemic at 2 am noted TF is continuous and tolerated Objective Last 24 Hour Vital Signs Date Time Temp Pulse Resp B/P (MAP) Pulse Ox O2 Delivery O2 Flow Rate FiO2 08/27/17 04:00 98.9 88 20 150/67 100 Non-Rebreather 100 08/27/17 04:00 92 08/27/17 03:43 98.0 08/27/17 00:00 100 08/27/17 00:00 98.2 97 20 127/76 100 Venturi Mask 08/26/17 20:00 98.2 96 18 143/64 100 Non-Rebreather 15.0 96 08/26/17 20:00 96 08/26/17 20:00 99.4 101 19 135/57 100 Non-Rebreather 15.0 100 08/26/17 16:00 99.4 101 19 135/57 100 Non-Rebreather 100 08/26/17 15:49 94 10/7/17 12:00 97 20 135/61 100 Venturi Mask 100 08/26/17 11:41 97 08/26/17 08:30 136/71 08/26/17 08:30 90 136/71 08/26/17 08:00 99.1 94 17 138/55 100 Non-Rebreather 100 08/26/17 07:39 Non-Rebreather 15.0 100 08/26/17 07:38 93 08/26/17 07:38 97 Non-Rebreather 15.0 100 Height (Feet): 5 Height (Inches): 3.00 Weight (Pounds): 109 General Appearance: no apparent distress Neck: normal alignment Cardiovascular: normal rate Respiratory/Chest: decreased breath sounds Abdomen: normal bowel sounds Edema: no edema noted Arm (L), no edema noted Arm (R), no edema noted Leg (L), no edema noted Leg (R), no edema noted Pedal (L), no edema noted Pedal (R), no edema noted Generalized Objective Current Medications Medications (Trade) Dose Ordered Sig/Adonay Route PRN Reason Start Time Stop Time Status Last Admin Dose Admin Acetaminophen (Tylenol) 650 mg Q6H PRN ORAL Mild Pain/Temp > 100.5 08/21/17 20:00 09/18/17 07:59 Amlodipine Besylate (Norvasc) 10 mg DAILY NG 08/23/17 09:00 09/22/17 08:59 08/26/17 08:30 Ascorbic Acid (Vitamin C) 500 mg DAILY NG 08/23/17 09:00 09/22/17 08:59 08/26/17 08:31 Baclofen (Lioresal) 10 mg THREE TIMES A DAY NG 08/23/17 09:00 09/22/17 08:59 08/26/17 18:17 Ceftriaxone Sodium 1 gm/ Sodium Chloride 55 ml @ 110 mls/hr Q24H IVPB 08/22/17 10:00 08/29/17 09:59 08/26/17 10:07 Citalopram Hydrobromide (celeXA) 20 mg DAILY GT 08/27/17 09:00 09/18/17 08:59 Clonidine HCl (Catapres) 0.1 mg Q6H PRN NG SBP > 160mmHg 08/23/17 08:30 09/22/17 08:29 Dextrose (Dextrose 50%) STAT PRN IV Hypoglycemia 08/21/17 20:00 09/20/17 19:59 08/27/17 02:06 Ferrous Sulfate (Feosol) 300 mg DAILY NG 08/27/17 09:00 09/26/17 08:59 Furosemide (Lasix) 20 mg EVERY 12 HOURS IV 08/24/17 18:00 09/23/17 17:59 08/26/17 20:17 Insulin Aspart (NovoLOG) EVERY 4 HOURS SUBQ 08/21/17 21:00 09/19/17 08:59 08/27/17 04:56 Insulin Detemir (Levemir) 10 units EVERY 12 HOURS SUBQ 08/23/17 09:00 09/22/17 08:59 08/26/17 20:16 Lansoprazole (Prevacid) 30 mg DAILY NG 08/24/17 09:00 09/23/17 08:59 08/26/17 08:30 Levothyroxine Sodium (Synthroid) 75 mcg ACBREAKFAST NG 08/24/17 06:30 09/23/17 06:29 08/26/17 06:00 Lorazepam (Ativan) 0.5 mg Q8H PRN NG For Anxiety 08/23/17 12:00 08/30/17 11:59 Losartan Potassium (Cozaar) 50 mg DAILY NG 08/23/17 09:00 09/22/17 08:59 08/26/17 08:30 Multivitamins (Multivitamins) 1 tab DAILY ORAL 08/22/17 09:00 09/18/17 08:59 08/26/17 08:31 Ondansetron HCl (Zofran) 4 mg Q6H PRN NG Nausea & Vomiting 08/26/17 15:30 09/18/17 07:59 Oxycodone/ Acetaminophen (Percocet 5-325) 1 tab Q6H PRN ORAL for severe breakthrough pain 08/26/17 15:30 09/02/17 10:44 08/27/17 02:44 Potassium Chloride (KCl 10% 40mEq Oral solution) 40 meq TWICE A DAY NG 08/24/17 18:00 09/23/17 17:59 08/26/17 18:17 Item Value Date Time Bedside Blood Glucose 125 mg/dl H 08/27/17 0500 Bedside Blood Glucose 60 mg/dl L 08/27/176 Bedside Blood Glucose 186 mg/dl H 08/26/172016 Bedside Blood Glucose 99 mg/dl 08/26/17 1657 KAYLEE DARNELL Aug 27, 2017 06:38
--- NOTE | 2017-08-27 06:38 | General Progress Note ---
Assessment/Plan Problem List: (1) DKA (diabetic ketoacidoses) ICD Codes: E13.10 - Other specified diabetes mellitus with ketoacidosis without coma SNOMED: 73020273, 762357759 (2) Altered level of consciousness ICD Codes: R40.4 - Transient alteration of awareness SNOMED: 4896541 (3) Hyperkalemia ICD Codes: E87.5 - Hyperkalemia SNOMED: 04972585 (4) Rhabdomyolysis ICD Codes: M62.82 - Rhabdomyolysis SNOMED: 515896516, 021214196 (5) Diabetes mellitus out of control ICD Codes: E11.65 - Type 2 diabetes mellitus with hyperglycemia SNOMED: 510652154, 72701278 (6) Sepsis ICD Codes: A41.9 - Sepsis, unspecified organism SNOMED: 97063047 (7) Hypothyroidism ICD Codes: E03.9 - Hypothyroidism, unspecified SNOMED: 43699721 Assessment/Plan reduce Levemir to 7 units bid continue Novolog sliding scale ac / hs continue Levothyroxine 75 mcg daily - TSH was normal on presentation and repeat value was elevated to 9 the reason for this change in value is Levothyroxine being held for couple of days after admission - no need to increase dosage repeat TFTs in 2 weeks Subjective ROS Limited/Unobtainable: Yes Allergies: Coded Allergies: No Known Allergies (Unverified , 08/18/17) Subjective events noted - interval notes reviewed hypoglycemic at 2 am noted TF is continuous and tolerated Objective Last 24 Hour Vital Signs Date Time Temp Pulse Resp B/P (MAP) Pulse Ox O2 Delivery O2 Flow Rate FiO2 08/27/17 04:00 98.9 88 20 150/67 100 Non-Rebreather 100 08/27/17 04:00 92 08/27/17 03:43 98.0 08/27/17 00:00 100 08/27/17 00:00 98.2 97 20 127/76 100 Venturi Mask 08/26/17 20:00 98.2 96 18 143/64 100 Non-Rebreather 15.0 96 08/26/17 20:00 96 08/26/17 20:00 99.4 101 19 135/57 100 Non-Rebreather 15.0 100 08/26/17 16:00 99.4 101 19 135/57 100 Non-Rebreather 100 08/26/17 15:49 94 10/7/17 12:00 97 20 135/61 100 Venturi Mask 100 08/26/17 11:41 97 08/26/17 08:30 136/71 08/26/17 08:30 90 136/71 08/26/17 08:00 99.1 94 17 138/55 100 Non-Rebreather 100 08/26/17 07:39 Non-Rebreather 15.0 100 08/26/17 07:38 93 08/26/17 07:38 97 Non-Rebreather 15.0 100 Height (Feet): 5 Height (Inches): 3.00 Weight (Pounds): 109 General Appearance: no apparent distress Neck: normal alignment Cardiovascular: normal rate Respiratory/Chest: decreased breath sounds Abdomen: normal bowel sounds Edema: no edema noted Arm (L), no edema noted Arm (R), no edema noted Leg (L), no edema noted Leg (R), no edema noted Pedal (L), no edema noted Pedal (R), no edema noted Generalized Objective Current Medications Medications (Trade) Dose Ordered Sig/Adonay Route PRN Reason Start Time Stop Time Status Last Admin Dose Admin Acetaminophen (Tylenol) 650 mg Q6H PRN ORAL Mild Pain/Temp > 100.5 08/21/17 20:00 09/18/17 07:59 Amlodipine Besylate (Norvasc) 10 mg DAILY NG 08/23/17 09:00 09/22/17 08:59 08/26/17 08:30 Ascorbic Acid (Vitamin C) 500 mg DAILY NG 08/23/17 09:00 09/22/17 08:59 08/26/17 08:31 Baclofen (Lioresal) 10 mg THREE TIMES A DAY NG 08/23/17 09:00 09/22/17 08:59 08/26/17 18:17 Ceftriaxone Sodium 1 gm/ Sodium Chloride 55 ml @ 110 mls/hr Q24H IVPB 08/22/17 10:00 08/29/17 09:59 08/26/17 10:07 Citalopram Hydrobromide (celeXA) 20 mg DAILY GT 08/27/17 09:00 09/18/17 08:59 Clonidine HCl (Catapres) 0.1 mg Q6H PRN NG SBP > 160mmHg 08/23/17 08:30 09/22/17 08:29 Dextrose (Dextrose 50%) STAT PRN IV Hypoglycemia 08/21/17 20:00 09/20/17 19:59 08/27/17 02:06 Ferrous Sulfate (Feosol) 300 mg DAILY NG 08/27/17 09:00 09/26/17 08:59 Furosemide (Lasix) 20 mg EVERY 12 HOURS IV 08/24/17 18:00 09/23/17 17:59 08/26/17 20:17 Insulin Aspart (NovoLOG) EVERY 4 HOURS SUBQ 08/21/17 21:00 09/19/17 08:59 08/27/17 04:56 Insulin Detemir (Levemir) 10 units EVERY 12 HOURS SUBQ 08/23/17 09:00 09/22/17 08:59 08/26/17 20:16 Lansoprazole (Prevacid) 30 mg DAILY NG 08/24/17 09:00 09/23/17 08:59 08/26/17 08:30 Levothyroxine Sodium (Synthroid) 75 mcg ACBREAKFAST NG 08/24/17 06:30 09/23/17 06:29 08/26/17 06:00 Lorazepam (Ativan) 0.5 mg Q8H PRN NG For Anxiety 08/23/17 12:00 08/30/17 11:59 Losartan Potassium (Cozaar) 50 mg DAILY NG 08/23/17 09:00 09/22/17 08:59 08/26/17 08:30 Multivitamins (Multivitamins) 1 tab DAILY ORAL 08/22/17 09:00 09/18/17 08:59 08/26/17 08:31 Ondansetron HCl (Zofran) 4 mg Q6H PRN NG Nausea & Vomiting 08/26/17 15:30 09/18/17 07:59 Oxycodone/ Acetaminophen (Percocet 5-325) 1 tab Q6H PRN ORAL for severe breakthrough pain 08/26/17 15:30 09/02/17 10:44 08/27/17 02:44 Potassium Chloride (KCl 10% 40mEq Oral solution) 40 meq TWICE A DAY NG 08/24/17 18:00 09/23/17 17:59 08/26/17 18:17 Item Value Date Time Bedside Blood Glucose 125 mg/dl H 08/27/17 0500 Bedside Blood Glucose 60 mg/dl L 08/27/176 Bedside Blood Glucose 186 mg/dl H 08/26/172016 Bedside Blood Glucose 99 mg/dl 08/26/17 1657 KAYLEE DARNELL Aug 27, 2017 06:38
[2017-08-27 08:00] VITALS: BP 135/58
[2017-08-27] MEDS: Citalopram Hydrobromide 10mg Tab GT SCH (08:38)
[2017-08-27] MEDS: KCl 10% 40mEq/30ml liquid NG SCH ×2 (08:38→17:52)
[2017-08-27] MEDS: Ascorbic Acid 500mg tab NG SCH (08:38)
[2017-08-27] MEDS: Ferrous Sulfate 300 MG/5 ML UDC NG SCH (08:38)
[2017-08-27] MEDS: Losartan 50mg tab NG SCH (08:40)
[2017-08-27] MEDS: cefTRIAXone 1 GM in NS 55 ML IVPB SCH (10:14)
[2017-08-27 12:00] VITALS: BP 128/70
[2017-08-27 16:00] VITALS: BP 150/74
--- NOTE | 2017-08-27 18:44 | Pulmonology Progress Note ---
Assessment/Plan Assessment/Plan DKA, resolved DM w hypoglycemia, now stable UTI sepsis, WBC rising htn anxiety, depression chronic pain on meds, dc IV Morphine AMS, improved but still confused lactic acidosis respiratory failure, interstitial edema high WBC chf uti cont rx ceftriaxone, new cultures, c diff DM rx per Dr Andrade negative IO aspiration precautions BNP better disc w , RN and family at the bedside PEG per GI when wbc reduced wbc cxr in am labs as well Subjective ROS Limited/Unobtainable: Yes Allergies: Coded Allergies: No Known Allergies (Unverified , 08/18/17) Subjective more confused this afternoon ngt in place adn tolerating feed no cp nv or bleeding nonambulatory no fever noted positive uop Objective Last 24 Hour Vital Signs Date Time Temp Pulse Resp B/P (MAP) Pulse Ox O2 Delivery O2 Flow Rate FiO2 08/27/17 16:00 98.3 105 18 150/74 100 Non-Rebreather 105 08/27/17 12:00 98.1 102 18 128/70 100 Non-Rebreather 100 102 08/27/17 11:49 93 08/27/17 08:40 135/58 08/27/17 08:40 89 135/58 08/27/17 08:00 98.5 89 19 135/58 99 Non-Rebreather 100 08/27/17 07:46 82 08/27/17 04:00 98.9 88 20 150/67 100 Non-Rebreather 100 08/27/17 04:00 92 08/27/17 03:43 98.0 08/27/17 00:00 100 08/27/17 00:00 98.2 97 20 127/76 100 Venturi Mask 08/26/17 20:00 98.2 96 18 143/64 100 Non-Rebreather 15.0 96 08/26/17 20:00 96 08/26/17 20:00 99.4 101 19 135/57 100 Non-Rebreather 15.0 100 Intake and Output 08/27/17 08/28/17 19:00 07:00 Intake Total 270 ml Balance 270 ml IV Total 55 ml Tube Feeding 165 ml Other 50 ml Respiratory/Chest: rhonchi Cardiovascular: normal rate, regular rhythm Abdomen: soft, non tender, no organomegaly Neurologic/Psychiatric: disoriented Microbiology Date/Time Source Procedure Growth Status 08/26/17 03:55 Blood Blood Culture - Preliminary NO GROWTH AFTER 24 HOURS Resulted 08/26/17 03:40 Blood Blood Culture - Preliminary NO GROWTH AFTER 24 HOURS Resulted 08/25/17 15:30 Urine,Clean Catch Urine Culture - Preliminary NO GROWTH AFTER 24 HOURS Resulted Current Medications Medications (Trade) Dose Ordered Sig/Adonay Route PRN Reason Start Time Stop Time Status Last Admin Dose Admin Acetaminophen (Tylenol) 650 mg Q6H PRN ORAL Mild Pain/Temp > 100.5 08/21/17 20:00 09/18/17 07:59 Amlodipine Besylate (Norvasc) 10 mg DAILY NG 08/23/17 09:00 09/22/17 08:59 08/27/17 08:40 Ascorbic Acid (Vitamin C) 500 mg DAILY NG 08/23/17 09:00 09/22/17 08:59 08/27/17 08:38 Baclofen (Lioresal) 10 mg THREE TIMES A DAY NG 08/23/17 09:00 09/22/17 08:59 08/27/17 17:52 Ceftriaxone Sodium 1 gm/ Sodium Chloride 55 ml @ 110 mls/hr Q24H IVPB 08/22/17 10:00 08/29/17 09:59 08/27/17 10:14 Citalopram Hydrobromide (celeXA) 20 mg DAILY GT 08/27/17 09:00 09/18/17 08:59 08/27/17 08:38 Clonidine HCl (Catapres) 0.1 mg Q6H PRN NG SBP > 160mmHg 08/23/17 08:30 09/22/17 08:29 Dextrose (Dextrose 50%) STAT PRN IV Hypoglycemia 08/21/17 20:00 09/20/17 19:59 08/27/17 02:06 Ferrous Sulfate (Feosol) 300 mg DAILY NG 08/27/17 09:00 09/26/17 08:59 08/27/17 08:38 Furosemide (Lasix) 20 mg EVERY 12 HOURS IV 08/24/17 18:00 09/23/17 17:59 08/27/17 08:38 Insulin Aspart (NovoLOG) EVERY 4 HOURS SUBQ 08/21/17 21:00 09/19/17 08:59 08/27/17 16:46 Insulin Detemir (Levemir) 7 units Q12HR SUBQ 08/27/17 21:00 09/26/17 20:59 Lansoprazole (Prevacid) 30 mg DAILY NG 08/24/17 09:00 09/23/17 08:59 08/27/17 08:38 Levothyroxine Sodium (Synthroid) 75 mcg ACBREAKFAST NG 08/24/17 06:30 09/23/17 06:29 08/27/17 06:35 Lorazepam (Ativan) 0.5 mg Q8H PRN NG For Anxiety 08/23/17 12:00 08/30/17 11:59 Losartan Potassium (Cozaar) 50 mg DAILY NG 08/23/17 09:00 09/22/17 08:59 08/27/17 08:40 Multivitamins (Multivitamins) 1 tab DAILY ORAL 08/22/17 09:00 09/18/17 08:59 08/27/17 08:38 Ondansetron HCl (Zofran) 4 mg Q6H PRN NG Nausea & Vomiting 08/26/17 15:30 09/18/17 07:59 Oxycodone/ Acetaminophen (Percocet 5-325) 1 tab Q6H PRN ORAL for severe breakthrough pain 08/26/17 15:30 09/02/17 10:44 08/27/17 16:53 Potassium Chloride (KCl 10% 40mEq Oral solution) 40 meq TWICE A DAY NG 08/24/17 18:00 09/23/17 17:59 08/27/17 17:52 JERO CALI DO Aug 27, 2017 18:44
[2017-08-27 20:00] VITALS: BP 158/62
[2017-08-27] MEDS: LORazepam 0.5mg tab NG PRN (21:15)
[2017-08-27] MEDS: Levemir Flexpen SUBQ SCH (21:17)
[2017-08-27] MEDS ORDERED: NovoLOG Insulin Flexpen SUBQ ONE (22:45)
[2017-08-27] MEDS ORDERED: Levemir Flexpen SUBQ ONE (22:45)
[2017-08-27] MEDS: Acetaminophen 500mg (ES) tab ORAL PRN (23:19)
[2017-08-28] VITALS: BP 145/72
[2017-08-28] MEDS: oxyCODONE HCL/Acetaminophen 5/325mg ORAL PRN ×3 (00:33→20:45)
[2017-08-28] MEDS: NovoLOG Insulin Flexpen SUBQ SCH ×6 (00:44→20:54)
[2017-08-28 04:00] VITALS: BP_SYST 114; BP_SYST 150; BP_DIAS 65; BP_DIAS 76
[2017-08-28 05:36] LABS: HEMATOCRIT 22.7 % (37.0-47.0); HEMOGLOBIN 7.6 G/DL (12.0-16.0); MEAN CORPUSCULAR VOLUME 103 FL (80-99); PLATELET COUNT 176 K/UL (150-450); RED BLOOD COUNT 2.22 M/UL (4.20-5.40); RED CELL DISTRIBUTION WIDTH 15.4 % (11.6-14.8); WHITE BLOOD COUNT 14.7 K/UL (4.8-10.8)
[2017-08-28 06:11] LABS: ANION GAP 6 (5-15); BLOOD UREA NITROGEN 35 mg/dL (7-18); CALCIUM 8.8 MG/DL (8.5-10.1); CARBON DIOXIDE 36 MMOL/L (21-32); CHLORIDE 110 MMOL/L (98-107); POTASSIUM 3.3 MMOL/L (3.5-5.1); SODIUM 152 MMOL/L (136-145)
[2017-08-28 08:00] VITALS: BP 127/66
--- NOTE | 2017-08-28 08:29 | Cardiology Report ---
APPROVED REPORT EXAM: Two-dimensional and M-mode echocardiogram with Doppler and color Doppler. INDICATION Shortness of breath M-Mode DIMENSIONS IVSd1.0 (0.7-1.1cm)Left Atrium (MM)3.9 (1.6-4.0cm) LVDd4.4 (3.5-5.6cm)Aortic Root2.2 (2.0-3.7cm) PWd0.7 (0.7-1.1cm)Aortic Cusp Exc.1.8 (1.5-2.0cm) LVDs2.3 (2.5-4.0cm) PWs1.1 cm Normal left ventricular chamber size, systolic function and wall motion. Left ventricular ejection fraction estimated to be 60 %. No evidence of left ventricular hypertrophy. Trace pericardial effusion. Possible moderate pleural effusion. All other cardiac chamber sizes are within normal limits. Mild focal aortic valve sclerosis with adequate cusp excursion. Mildly thickened mitral valve leaflets with normal excursion. Mild mitral annulus and aortic root calcification. Pulmonic valve not well visualized. Normal tricuspid valve structure. IVC is at normal size with physiological collapse. A color flow and spectral Doppler study was performed and revealed: No aortic insufficiency. Moderate mitral regurgitation. Mitral diastolic velocities suggest reduced left ventricular relaxation c/w impaired relaxation grade one diastolic dysfunction. Mild tricuspid regurgitation. Tricuspid systolic velocities suggests peak right ventricular systolic pressure of 40 mmHg, consistent with mild pulmonary hypertension. No pulmonic regurgitation present.
[2017-08-28] MEDS: Citalopram Hydrobromide 10mg Tab GT SCH (09:00)
--- NOTE | 2017-08-28 09:11 | Pulmonology Progress Note ---
Assessment/Plan Assessment/Plan DKA, resolved DM w hypoglycemia, now stable UTI sepsis, WBC rising, low grade fever htn anxiety, depression chronic pain on meds AMS, improved but still confused lactic acidosis respiratory failure, interstitial edema Hypernatremia cont rx ceftriaxone, called ID DM rx per Dr Andrade; poor control rx UTI, sepsis; ID to see f/u CXR not better; likely pneumonia disc w RN PEG per GI when stable discussed poor status w brother Subjective ROS Limited/Unobtainable: Yes Respiratory: Reports: shortness of breath Allergies: Coded Allergies: No Known Allergies (Unverified , 08/18/17) Objective Last 24 Hour Vital Signs Date Time Temp Pulse Resp B/P (MAP) Pulse Ox O2 Delivery O2 Flow Rate FiO2 08/28/17 04:00 98.6 100 21 150/65 100 Non-Rebreather 100 08/28/17 04:00 112 08/28/17 04:00 98.2 98 20 114/76 95 Non-Rebreather 100 08/28/17 01:32 100.0 08/28/17 00:18 100.0 08/28/17 00:00 99.0 102 22 145/72 100 Non-Rebreather 100 08/28/17 00:00 105 08/27/17 23:06 100.6 08/27/17 20:00 99.8 107 18 158/62 100 Venturi Mask 50 105 08/27/17 19:28 105 08/27/17 19:10 Venturi Mask 12.0 50 08/27/17 19:10 97 Venturi Mask 12.0 50 08/27/17 16:00 98.3 105 18 150/74 100 Non-Rebreather 105 08/27/17 15:51 100 08/27/17 12:00 98.1 102 18 128/70 100 Non-Rebreather 100 102 08/27/17 11:49 93 General Appearance: cachetic, other - mild distress HEENT: atraumatic Respiratory/Chest: rhonchi Microbiology Date/Time Source Procedure Growth Status 08/26/17 03:55 Blood Blood Culture - Preliminary NO GROWTH AFTER 48 HOURS Resulted 08/26/17 03:40 Blood Blood Culture - Preliminary NO GROWTH AFTER 48 HOURS Resulted 08/25/17 15:30 Urine,Clean Catch Urine Culture - Final NO GROWTH AFTER 48 HOURS Complete Laboratory Tests 08/28/17 00:49: Arterial Blood pH 7.532H, Arterial Blood Partial Pressure CO2 38.5, Arterial Blood Partial Pressure O2 56.7L, Arterial Blood HCO3 31.6H, Arterial Blood Oxygen Saturation 90.7L, Arterial Blood Base Excess 8.3, Adolfo Test Positive 08/28/17 04:00: White Blood Count 14.7H, Red Blood Count 2.22L, Hemoglobin 7.6L, Hematocrit 22.7L, Mean Corpuscular Volume 103H, Mean Corpuscular Hemoglobin 34.4H, Mean Corpuscular Hemoglobin Concent 33.6, Red Cell Distribution Width 15.4H, Platelet Count 176, Mean Platelet Volume 8.3, Neutrophils (%) (Auto) , Lymphocytes (%) (Auto) , Monocytes (%) (Auto) , Eosinophils (%) (Auto) , Basophils (%) (Auto) , Neutrophils % (Manual) [Pending], Lymphocytes % (Manual) [Pending], Platelet Estimate [Pending], Platelet Morphology [Pending], Sodium Level 152H, Potassium Level 3.3L, Chloride Level 110H, Carbon Dioxide Level 36H , Anion Gap 6, Blood Urea Nitrogen 35H, Creatinine 1.0, Estimat Glomerular Filtration Rate > 60, Glucose Level 153H, Calcium Level 8.8, Pro-B-Type Natriuretic Peptide 1337H Current Medications Medications (Trade) Dose Ordered Sig/Adonay Route PRN Reason Start Time Stop Time Status Last Admin Dose Admin Acetaminophen (Tylenol) 650 mg Q6H PRN ORAL Mild Pain/Temp > 100.5 08/21/17 20:00 09/18/17 07:59 08/27/17 23:19 Amlodipine Besylate (Norvasc) 10 mg DAILY NG 08/23/17 09:00 09/22/17 08:59 08/27/17 08:40 Ascorbic Acid (Vitamin C) 500 mg DAILY NG 08/23/17 09:00 09/22/17 08:59 08/27/17 08:38 Baclofen (Lioresal) 10 mg THREE TIMES A DAY NG 08/23/17 09:00 09/22/17 08:59 08/27/17 17:52 Ceftriaxone Sodium 1 gm/ Sodium Chloride 55 ml @ 110 mls/hr Q24H IVPB 08/22/17 10:00 08/29/17 09:59 08/27/17 10:14 Citalopram Hydrobromide (celeXA) 20 mg DAILY GT 08/27/17 09:00 09/18/17 08:59 08/27/17 08:38 Clonidine HCl (Catapres) 0.1 mg Q6H PRN NG SBP > 160mmHg 08/23/17 08:30 09/22/17 08:29 Dextrose (Dextrose 50%) STAT PRN IV Hypoglycemia 08/21/17 20:00 09/20/17 19:59 08/27/17 02:06 Ferrous Sulfate (Feosol) 300 mg DAILY NG 08/27/17 09:00 09/26/17 08:59 08/27/17 08:38 Insulin Aspart (NovoLOG) EVERY 4 HOURS SUBQ 08/21/17 21:00 09/19/17 08:59 08/28/17 00:44 Insulin Detemir (Levemir) 7 units Q12HR SUBQ 08/27/17 21:00 09/26/17 20:59 08/27/17 21:17 Lansoprazole (Prevacid) 30 mg DAILY NG 08/24/17 09:00 09/23/17 08:59 08/27/17 08:38 Levothyroxine Sodium (Synthroid) 75 mcg ACBREAKFAST NG 08/24/17 06:30 09/23/17 06:29 08/28/17 06:18 Lorazepam (Ativan) 0.5 mg Q8H PRN NG For Anxiety 08/23/17 12:00 08/30/17 11:59 08/27/17 21:15 Losartan Potassium (Cozaar) 50 mg DAILY NG 08/23/17 09:00 09/22/17 08:59 08/27/17 08:40 Multivitamins (Multivitamins) 1 tab DAILY ORAL 08/22/17 09:00 09/18/17 08:59 08/27/17 08:38 Ondansetron HCl (Zofran) 4 mg Q6H PRN NG Nausea & Vomiting 08/26/17 15:30 09/18/17 07:59 Oxycodone/ Acetaminophen (Percocet 5-325) 1 tab Q6H PRN ORAL for severe breakthrough pain 08/26/17 15:30 09/02/17 10:44 08/28/17 00:33 Potassium Chloride (KCl 10% 40mEq Oral solution) 40 meq TWICE A DAY NG 08/24/17 18:00 09/23/17 17:59 08/27/17 17:52 PATRICIA LUGO Aug 28, 2017 09:11
[2017-08-28] MEDS: KCl 10% 40mEq/30ml liquid NG SCH ×2 (09:37→17:19)
[2017-08-28] MEDS: Ferrous Sulfate 300 MG/5 ML UDC NG SCH (09:38)
[2017-08-28] MEDS: Losartan 50mg tab NG SCH (09:39)
[2017-08-28] MEDS: Ascorbic Acid 500mg tab NG SCH (09:39)
[2017-08-28] MEDS: LORazepam 0.5mg tab NG PRN (09:39)
[2017-08-28] MEDS: Levemir Flexpen SUBQ SCH ×2 (10:29→20:55)
[2017-08-28] MEDS: cefTRIAXone 1 GM in NS 55 ML IVPB SCH (10:34)
[2017-08-28 12:00] VITALS: BP 121/67
--- NOTE | 2017-08-28 12:38 | Diagnostic Imaging Report ---
Indication: Dyspnea Comparison: And 717 A single view chest radiograph was obtained. Findings: Interstitial edema appears improved since the last exam with a moderate residual. The heart is mildly enlarged. NG tube is in good position. Impression: Improved interstitial edema with moderate residual
[2017-08-28 16:00] VITALS: BP 113/60
--- NOTE | 2017-08-28 16:16 | Infectious Diseases Prog Note ---
Assessment/Plan Assessment/Plan Full consult dictated A) 1) sepsis, klebsiella uti, possible pna, ?c.diff., leukocytosis, fevers 2) allergies - negative 3) pmh noted 4) doubt wounds causing sepsis P) 1) vancomycin, zosyn and flagyl 2) check cultures, labs and chest x-ray 3) thank you Subjective Allergies: Coded Allergies: No Known Allergies (Unverified , 08/18/17) Objective Vital Signs Last 24 Hour Vital Signs Date Time Temp Pulse Resp B/P (MAP) Pulse Ox O2 Delivery O2 Flow Rate FiO2 08/28/17 12:00 99.5 100 24 121/67 99 Non-Rebreather 100 08/28/17 09:39 127/66 08/28/17 09:37 100 127/66 08/28/17 08:00 99.0 92 22 127/66 100 Non-Rebreather 100 08/28/17 04:00 98.6 100 21 150/65 100 Non-Rebreather 100 08/28/17 04:00 112 08/28/17 04:00 98.2 98 20 114/76 95 Non-Rebreather 100 08/28/17 01:32 100.0 08/28/17 00:18 100.0 08/28/17 00:00 99.0 102 22 145/72 100 Non-Rebreather 100 08/28/17 00:00 105 08/27/17 23:06 100.6 08/27/17 20:00 99.8 107 18 158/62 100 Venturi Mask 50 105 08/27/17 19:28 105 08/27/17 19:10 Venturi Mask 12.0 50 08/27/17 19:10 97 Venturi Mask 12.0 50 Height (Feet): 5 Height (Inches): 3.00 Weight (Pounds): 110 Microbiology Date/Time Source Procedure Growth Status 08/26/17 03:55 Blood Blood Culture - Preliminary NO GROWTH AFTER 48 HOURS Resulted 08/26/17 03:40 Blood Blood Culture - Preliminary NO GROWTH AFTER 48 HOURS Resulted Laboratory Tests Test 08/28/17 00:49 08/28/17 04:00 Arterial Blood pH 7.532 (7.350-7.450) Arterial Blood Partial Pressure CO2 38.5 mmHg (35.0-45.0) Arterial Blood Partial Pressure O2 56.7 mmHg (75.0-100.0) L Arterial Blood HCO3 31.6 mmol/L (22.0-26.0) H Arterial Blood Oxygen Saturation 90.7 % (92.0-98.0) L Arterial Blood Base Excess 8.3 Adolfo Test Positive White Blood Count 14.7 K/UL (4.8-10.8) H Red Blood Count 2.22 M/UL (4.20-5.40) L Hemoglobin 7.6 G/DL (12.0-16.0) L Hematocrit 22.7 % (37.0-47.0) L Mean Corpuscular Volume 103 FL (80-99) H Mean Corpuscular Hemoglobin 34.4 PG (27.0-31.0) H Mean Corpuscular Hemoglobin Concent 33.6 G/DL (32.0-36.0) Red Cell Distribution Width 15.4 % (11.6-14.8) H Platelet Count 176 K/UL (150-450) Mean Platelet Volume 8.3 FL (6.5-10.1) Neutrophils (%) (Auto) % (45.0-75.0) Lymphocytes (%) (Auto) % (20.0-45.0) Monocytes (%) (Auto) % (1.0-10.0) Eosinophils (%) (Auto) % (0.0-3.0) Basophils (%) (Auto) % (0.0-2.0) Differential Total Cells Counted 100 Neutrophils % (Manual) 87 % (45-75) H Lymphocytes % (Manual) 5 % (20-45) L Monocytes % (Manual) 6 % (1-10) Eosinophils % (Manual) 0 % (0-3) Basophils % (Manual) 0 % (0-2) Band Neutrophils 2 % (0-8) Platelet Estimate Adequate Platelet Morphology Normal Hypochromasia 1+ Anisocytosis 1+ Macrocytosis 1+ Sodium Level 152 MMOL/L (136-145) H Potassium Level 3.3 MMOL/L (3.5-5.1) L Chloride Level 110 MMOL/L (98-107) H Carbon Dioxide Level 36 MMOL/L (21-32) H Anion Gap 6 (5-15) Blood Urea Nitrogen 35 mg/dL (7-18) H Creatinine 1.0 MG/DL (0.55-1.30) Estimat Glomerular Filtration Rate > 60 mL/min (>60) Glucose Level 153 MG/DL (74-106) H Calcium Level 8.8 MG/DL (8.5-10.1) Pro-B-Type Natriuretic Peptide 1337 (0-125) H Current Medications Medications (Trade) Dose Ordered Sig/Adonay Route PRN Reason Start Time Stop Time Status Last Admin Dose Admin Acetaminophen (Tylenol) 650 mg Q6H PRN ORAL Mild Pain/Temp > 100.5 08/21/17 20:00 09/18/17 07:59 08/27/17 23:19 Amlodipine Besylate (Norvasc) 10 mg DAILY NG 08/23/17 09:00 09/22/17 08:59 08/28/17 09:37 Ascorbic Acid (Vitamin C) 500 mg DAILY NG 08/23/17 09:00 09/22/17 08:59 08/28/17 09:39 Baclofen (Lioresal) 10 mg THREE TIMES A DAY NG 08/23/17 09:00 09/22/17 08:59 08/28/17 12:38 Ceftriaxone Sodium 1 gm/ Sodium Chloride 55 ml @ 110 mls/hr Q24H IVPB 08/22/17 10:00 08/29/17 23:59 08/28/17 10:34 Citalopram Hydrobromide (celeXA) 20 mg DAILY GT 08/27/17 09:00 09/18/17 08:59 08/28/17 09:00 Clonidine HCl (Catapres) 0.1 mg Q6H PRN NG SBP > 160mmHg 08/23/17 08:30 09/22/17 08:29 Dextrose (Dextrose 50%) STAT PRN IV Hypoglycemia 08/21/17 20:00 09/20/17 19:59 08/28/17 09:30 Ferrous Sulfate (Feosol) 300 mg DAILY NG 08/27/17 09:00 09/26/17 08:59 08/28/17 09:38 Insulin Aspart (NovoLOG) EVERY 4 HOURS SUBQ 08/21/17 21:00 09/19/17 08:59 08/28/17 12:45 Insulin Detemir (Levemir) 7 units Q12HR SUBQ 08/27/17 21:00 09/26/17 20:59 08/28/17 10:29 Lansoprazole (Prevacid) 30 mg DAILY NG 08/24/17 09:00 09/23/17 08:59 08/28/17 09:39 Levothyroxine Sodium (Synthroid) 75 mcg ACBREAKFAST NG 08/24/17 06:30 09/23/17 06:29 08/28/17 06:18 Lorazepam (Ativan) 0.5 mg Q8H PRN NG For Anxiety 08/23/17 12:00 08/30/17 11:59 08/28/17 09:39 Losartan Potassium (Cozaar) 50 mg DAILY NG 08/23/17 09:00 09/22/17 08:59 08/28/17 09:39 Multivitamins (Multivitamins) 1 tab DAILY ORAL 08/22/17 09:00 09/18/17 08:59 08/28/17 09:37 Ondansetron HCl (Zofran) 4 mg Q6H PRN NG Nausea & Vomiting 08/26/17 15:30 09/18/17 07:59 Oxycodone/ Acetaminophen (Percocet 5-325) 1 tab Q6H PRN ORAL for severe breakthrough pain 08/26/17 15:30 09/02/17 10:44 08/28/17 12:38 Potassium Chloride (KCl 10% 40mEq Oral solution) 40 meq TWICE A DAY NG 08/24/17 18:00 09/23/17 17:59 08/28/17 09:37 YASIR RUEDA Aug 28, 2017 16:16
[2017-08-28] MEDS ORDERED: Vancomycin 1gm in D5W 275ml IVPB ONE ×2 (18:00→21:00)
--- NOTE | 2017-08-28 19:24 | General Progress Note ---
Assessment/Plan Problem List: (1) DKA (diabetic ketoacidoses) ICD Codes: E13.10 - Other specified diabetes mellitus with ketoacidosis without coma SNOMED: 92114202, 874541843 (2) Altered level of consciousness ICD Codes: R40.4 - Transient alteration of awareness SNOMED: 5106476 (3) Hyperkalemia ICD Codes: E87.5 - Hyperkalemia SNOMED: 00664943 (4) Rhabdomyolysis ICD Codes: M62.82 - Rhabdomyolysis SNOMED: 475743480, 155239042 (5) Diabetes mellitus out of control ICD Codes: E11.65 - Type 2 diabetes mellitus with hyperglycemia SNOMED: 875713923, 95774450 (6) Sepsis ICD Codes: A41.9 - Sepsis, unspecified organism SNOMED: 64141280 (7) Hypothyroidism ICD Codes: E03.9 - Hypothyroidism, unspecified SNOMED: 16185605 Assessment/Plan continue Levemir 7units bid continue Novolog sliding scale every 4 hours continue Levothyroxine 75 mcg daily - TSH was normal on presentation and repeat value was elevated to 9 the reason for this change in value is Levothyroxine being held for couple of days after admission - no need to increase dosage repeat TFTs in 2 weeks Subjective ROS Limited/Unobtainable: Yes Allergies: Coded Allergies: No Known Allergies (Unverified , 08/18/17) Subjective events noted - interval notes reviewed being transfused with PRBC lethargic TF is tolerated doing poorly Objective Last 24 Hour Vital Signs Date Time Temp Pulse Resp B/P (MAP) Pulse Ox O2 Delivery O2 Flow Rate FiO2 08/28/17 16:00 98.1 97 26 113/60 93 Non-Rebreather 100 08/28/17 16:00 99 08/28/17 13:37 99.0 08/28/17 12:00 99.5 100 24 121/67 99 Non-Rebreather 100 08/28/17 12:00 94 08/28/17 09:39 127/66 08/28/17 09:37 100 127/66 08/28/17 08:00 91 08/28/17 08:00 99.0 92 22 127/66 100 Non-Rebreather 100 08/28/17 04:00 98.6 100 21 150/65 100 Non-Rebreather 100 08/28/17 04:00 112 10/9/17 04:00 98.2 98 20 114/76 95 Non-Rebreather 100 08/28/17 00:18 100.0 08/28/17 00:00 99.0 102 22 145/72 100 Non-Rebreather 100 08/28/17 00:00 105 08/27/17 23:06 100.6 08/27/17 20:00 99.8 107 18 158/62 100 Venturi Mask 50 105 08/27/17 19:28 105 Intake and Output 08/28/17 08/29/17 19:00 07:00 Intake Total 805 ml Output Total 550 ml Balance 255 ml Free Water 200 ml Tube Feeding 605 ml Output Urine Total 550 ml Laboratory Tests 08/28/17 00:49: Arterial Blood pH 7.532H, Arterial Blood Partial Pressure CO2 38.5, Arterial Blood Partial Pressure O2 56.7L, Arterial Blood HCO3 31.6H, Arterial Blood Oxygen Saturation 90.7L, Arterial Blood Base Excess 8.3, Adolfo Test Positive 08/28/17 04:00: White Blood Count 14.7H, Red Blood Count 2.22L, Hemoglobin 7.6L, Hematocrit 22.7L, Mean Corpuscular Volume 103H, Mean Corpuscular Hemoglobin 34.4H, Mean Corpuscular Hemoglobin Concent 33.6, Red Cell Distribution Width 15.4H, Platelet Count 176, Mean Platelet Volume 8.3, Neutrophils (%) (Auto) , Lymphocytes (%) (Auto) , Monocytes (%) (Auto) , Eosinophils (%) (Auto) , Basophils (%) (Auto) , Differential Total Cells Counted 100, Neutrophils % ( Manual) 87H, Lymphocytes % (Manual) 5L, Monocytes % (Manual) 6, Eosinophils % ( Manual) 0, Basophils % (Manual) 0, Band Neutrophils 2, Platelet Estimate Adequate, Platelet Morphology Normal, Hypochromasia 1+, Anisocytosis 1+, Macrocytosis 1+, Sodium Level 152H, Potassium Level 3.3L, Chloride Level 110H, Carbon Dioxide Level 36H, Anion Gap 6, Blood Urea Nitrogen 35H, Creatinine 1.0, Estimat Glomerular Filtration Rate > 60, Glucose Level 153H, Calcium Level 8.8, Pro-B-Type Natriuretic Peptide 1337H Height (Feet): 5 Height (Inches): 3.00 Weight (Pounds): 110 General Appearance: moderate distress EENT: pale conjunctivae Neck: normal alignment Cardiovascular: tachycardia Respiratory/Chest: decreased breath sounds Pelvis: normal external exam Edema: 1+ Arm (L), 1+ Arm (R), 1+ Leg (L), 1+ Leg (R), 1+ Pedal (L), 1+ Pedal ( R), 1+ Generalized Objective Current Medications Medications (Trade) Dose Ordered Sig/Adonay Route PRN Reason Start Time Stop Time Status Last Admin Dose Admin Acetaminophen (Tylenol) 650 mg Q6H PRN ORAL Mild Pain/Temp > 100.5 08/21/17 20:00 09/18/17 07:59 08/27/17 23:19 Amlodipine Besylate (Norvasc) 10 mg DAILY NG 08/23/17 09:00 09/22/17 08:59 08/28/17 09:37 Ascorbic Acid (Vitamin C) 500 mg DAILY NG 08/23/17 09:00 09/22/17 08:59 08/28/17 09:39 Baclofen (Lioresal) 10 mg THREE TIMES A DAY NG 08/23/17 09:00 09/22/17 08:59 08/28/17 17:17 Citalopram Hydrobromide (celeXA) 20 mg DAILY GT 08/27/17 09:00 09/18/17 08:59 08/28/17 09:00 Clonidine HCl (Catapres) 0.1 mg Q6H PRN NG SBP > 160mmHg 08/23/17 08:30 09/22/17 08:29 Dextrose (Dextrose 50%) STAT PRN IV Hypoglycemia 08/21/17 20:00 09/20/17 19:59 08/28/17 09:30 Ferrous Sulfate (Feosol) 300 mg DAILY NG 08/27/17 09:00 09/26/17 08:59 08/28/17 09:38 Insulin Aspart (NovoLOG) EVERY 4 HOURS SUBQ 08/21/17 21:00 09/19/17 08:59 08/28/17 17:17 Insulin Detemir (Levemir) 7 units Q12HR SUBQ 08/27/17 21:00 09/26/17 20:59 08/28/17 10:29 Lansoprazole (Prevacid) 30 mg DAILY NG 08/24/17 09:00 09/23/17 08:59 08/28/17 09:39 Levothyroxine Sodium (Synthroid) 75 mcg ACBREAKFAST NG 08/24/17 06:30 09/23/17 06:29 08/28/17 06:18 Lorazepam (Ativan) 0.5 mg Q8H PRN NG For Anxiety 08/23/17 12:00 08/30/17 11:59 08/28/17 09:39 Losartan Potassium (Cozaar) 50 mg DAILY NG 08/23/17 09:00 09/22/17 08:59 08/28/17 09:39 Metronidazole (Flagyl) 500 mg EVERY 8 HOURS ORAL 08/28/17 22:00 09/04/17 21:59 Multivitamins (Multivitamins) 1 tab DAILY ORAL 08/22/17 09:00 09/18/17 08:59 08/28/17 09:37 Ondansetron HCl (Zofran) 4 mg Q6H PRN NG Nausea & Vomiting 08/26/17 15:30 09/18/17 07:59 Oxycodone/ Acetaminophen (Percocet 5-325) 1 tab Q6H PRN ORAL for severe breakthrough pain 08/26/17 15:30 09/02/17 10:44 08/28/17 12:38 Piperacillin Sod/ Tazobactam Sod 3.375 gm/Dextrose 100 ml @ 25 mls/hr EVERY 8 HOURS IVPB 08/28/17 22:00 09/02/17 21:59 Potassium Chloride (KCl 10% 40mEq Oral solution) 40 meq TWICE A DAY NG 08/24/17 18:00 09/23/17 17:59 08/28/17 17:19 Vancomycin HCl (Vanco rx to dose) 1 ea DAILY PRN MISC Per rx protocol 08/28/17 16:15 09/27/17 16:14 Vancomycin HCl 1 gm/Dextrose 275 ml @ 183.708 mls/hr ONCE ONCE IVPB 08/28/17 18:00 08/28/17 19:29 Vancomycin/Sodium Chloride 250 ml @ 166.667 mls/hr Q24H IVPB 08/29/17 18:00 09/03/17 17:59 Item Value Date Time Bedside Blood Glucose 190 mg/dl H 08/28/17 1717 Bedside Blood Glucose 194 mg/dl H 08/28/17 1245 Bedside Blood Glucose 203 mg/dl H 08/28/17 1029 Bedside Blood Glucose 110 mg/dl 08/28/17 0500 Bedside Blood Glucose 472 mg/dl H 08/28/17 0044 Bedside Blood Glucose 430 mg/dl H 08/27/178 KAYLEE DARNELL Aug 28, 2017 19:24
--- NOTE | 2017-08-28 19:24 | General Progress Note ---
Assessment/Plan Problem List: (1) DKA (diabetic ketoacidoses) ICD Codes: E13.10 - Other specified diabetes mellitus with ketoacidosis without coma SNOMED: 15374629, 950816144 (2) Altered level of consciousness ICD Codes: R40.4 - Transient alteration of awareness SNOMED: 1611209 (3) Hyperkalemia ICD Codes: E87.5 - Hyperkalemia SNOMED: 49367692 (4) Rhabdomyolysis ICD Codes: M62.82 - Rhabdomyolysis SNOMED: 587428056, 503739252 (5) Diabetes mellitus out of control ICD Codes: E11.65 - Type 2 diabetes mellitus with hyperglycemia SNOMED: 116135407, 53141358 (6) Sepsis ICD Codes: A41.9 - Sepsis, unspecified organism SNOMED: 49570125 (7) Hypothyroidism ICD Codes: E03.9 - Hypothyroidism, unspecified SNOMED: 17677299 Assessment/Plan continue Levemir 7units bid continue Novolog sliding scale every 4 hours continue Levothyroxine 75 mcg daily - TSH was normal on presentation and repeat value was elevated to 9 the reason for this change in value is Levothyroxine being held for couple of days after admission - no need to increase dosage repeat TFTs in 2 weeks Subjective ROS Limited/Unobtainable: Yes Allergies: Coded Allergies: No Known Allergies (Unverified , 08/18/17) Subjective events noted - interval notes reviewed being transfused with PRBC lethargic TF is tolerated doing poorly Objective Last 24 Hour Vital Signs Date Time Temp Pulse Resp B/P (MAP) Pulse Ox O2 Delivery O2 Flow Rate FiO2 08/28/17 16:00 98.1 97 26 113/60 93 Non-Rebreather 100 08/28/17 16:00 99 08/28/17 13:37 99.0 08/28/17 12:00 99.5 100 24 121/67 99 Non-Rebreather 100 08/28/17 12:00 94 08/28/17 09:39 127/66 08/28/17 09:37 100 127/66 08/28/17 08:00 91 08/28/17 08:00 99.0 92 22 127/66 100 Non-Rebreather 100 08/28/17 04:00 98.6 100 21 150/65 100 Non-Rebreather 100 08/28/17 04:00 112 10/9/17 04:00 98.2 98 20 114/76 95 Non-Rebreather 100 08/28/17 00:18 100.0 08/28/17 00:00 99.0 102 22 145/72 100 Non-Rebreather 100 08/28/17 00:00 105 08/27/17 23:06 100.6 08/27/17 20:00 99.8 107 18 158/62 100 Venturi Mask 50 105 08/27/17 19:28 105 Intake and Output 08/28/17 08/29/17 19:00 07:00 Intake Total 805 ml Output Total 550 ml Balance 255 ml Free Water 200 ml Tube Feeding 605 ml Output Urine Total 550 ml Laboratory Tests 08/28/17 00:49: Arterial Blood pH 7.532H, Arterial Blood Partial Pressure CO2 38.5, Arterial Blood Partial Pressure O2 56.7L, Arterial Blood HCO3 31.6H, Arterial Blood Oxygen Saturation 90.7L, Arterial Blood Base Excess 8.3, Adolfo Test Positive 08/28/17 04:00: White Blood Count 14.7H, Red Blood Count 2.22L, Hemoglobin 7.6L, Hematocrit 22.7L, Mean Corpuscular Volume 103H, Mean Corpuscular Hemoglobin 34.4H, Mean Corpuscular Hemoglobin Concent 33.6, Red Cell Distribution Width 15.4H, Platelet Count 176, Mean Platelet Volume 8.3, Neutrophils (%) (Auto) , Lymphocytes (%) (Auto) , Monocytes (%) (Auto) , Eosinophils (%) (Auto) , Basophils (%) (Auto) , Differential Total Cells Counted 100, Neutrophils % ( Manual) 87H, Lymphocytes % (Manual) 5L, Monocytes % (Manual) 6, Eosinophils % ( Manual) 0, Basophils % (Manual) 0, Band Neutrophils 2, Platelet Estimate Adequate, Platelet Morphology Normal, Hypochromasia 1+, Anisocytosis 1+, Macrocytosis 1+, Sodium Level 152H, Potassium Level 3.3L, Chloride Level 110H, Carbon Dioxide Level 36H, Anion Gap 6, Blood Urea Nitrogen 35H, Creatinine 1.0, Estimat Glomerular Filtration Rate > 60, Glucose Level 153H, Calcium Level 8.8, Pro-B-Type Natriuretic Peptide 1337H Height (Feet): 5 Height (Inches): 3.00 Weight (Pounds): 110 General Appearance: moderate distress EENT: pale conjunctivae Neck: normal alignment Cardiovascular: tachycardia Respiratory/Chest: decreased breath sounds Pelvis: normal external exam Edema: 1+ Arm (L), 1+ Arm (R), 1+ Leg (L), 1+ Leg (R), 1+ Pedal (L), 1+ Pedal ( R), 1+ Generalized Objective Current Medications Medications (Trade) Dose Ordered Sig/Adonay Route PRN Reason Start Time Stop Time Status Last Admin Dose Admin Acetaminophen (Tylenol) 650 mg Q6H PRN ORAL Mild Pain/Temp > 100.5 08/21/17 20:00 09/18/17 07:59 08/27/17 23:19 Amlodipine Besylate (Norvasc) 10 mg DAILY NG 08/23/17 09:00 09/22/17 08:59 08/28/17 09:37 Ascorbic Acid (Vitamin C) 500 mg DAILY NG 08/23/17 09:00 09/22/17 08:59 08/28/17 09:39 Baclofen (Lioresal) 10 mg THREE TIMES A DAY NG 08/23/17 09:00 09/22/17 08:59 08/28/17 17:17 Citalopram Hydrobromide (celeXA) 20 mg DAILY GT 08/27/17 09:00 09/18/17 08:59 08/28/17 09:00 Clonidine HCl (Catapres) 0.1 mg Q6H PRN NG SBP > 160mmHg 08/23/17 08:30 09/22/17 08:29 Dextrose (Dextrose 50%) STAT PRN IV Hypoglycemia 08/21/17 20:00 09/20/17 19:59 08/28/17 09:30 Ferrous Sulfate (Feosol) 300 mg DAILY NG 08/27/17 09:00 09/26/17 08:59 08/28/17 09:38 Insulin Aspart (NovoLOG) EVERY 4 HOURS SUBQ 08/21/17 21:00 09/19/17 08:59 08/28/17 17:17 Insulin Detemir (Levemir) 7 units Q12HR SUBQ 08/27/17 21:00 09/26/17 20:59 08/28/17 10:29 Lansoprazole (Prevacid) 30 mg DAILY NG 08/24/17 09:00 09/23/17 08:59 08/28/17 09:39 Levothyroxine Sodium (Synthroid) 75 mcg ACBREAKFAST NG 08/24/17 06:30 09/23/17 06:29 08/28/17 06:18 Lorazepam (Ativan) 0.5 mg Q8H PRN NG For Anxiety 08/23/17 12:00 08/30/17 11:59 08/28/17 09:39 Losartan Potassium (Cozaar) 50 mg DAILY NG 08/23/17 09:00 09/22/17 08:59 08/28/17 09:39 Metronidazole (Flagyl) 500 mg EVERY 8 HOURS ORAL 08/28/17 22:00 09/04/17 21:59 Multivitamins (Multivitamins) 1 tab DAILY ORAL 08/22/17 09:00 09/18/17 08:59 08/28/17 09:37 Ondansetron HCl (Zofran) 4 mg Q6H PRN NG Nausea & Vomiting 08/26/17 15:30 09/18/17 07:59 Oxycodone/ Acetaminophen (Percocet 5-325) 1 tab Q6H PRN ORAL for severe breakthrough pain 08/26/17 15:30 09/02/17 10:44 08/28/17 12:38 Piperacillin Sod/ Tazobactam Sod 3.375 gm/Dextrose 100 ml @ 25 mls/hr EVERY 8 HOURS IVPB 08/28/17 22:00 09/02/17 21:59 Potassium Chloride (KCl 10% 40mEq Oral solution) 40 meq TWICE A DAY NG 08/24/17 18:00 09/23/17 17:59 08/28/17 17:19 Vancomycin HCl (Vanco rx to dose) 1 ea DAILY PRN MISC Per rx protocol 08/28/17 16:15 09/27/17 16:14 Vancomycin HCl 1 gm/Dextrose 275 ml @ 183.708 mls/hr ONCE ONCE IVPB 08/28/17 18:00 08/28/17 19:29 Vancomycin/Sodium Chloride 250 ml @ 166.667 mls/hr Q24H IVPB 08/29/17 18:00 09/03/17 17:59 Item Value Date Time Bedside Blood Glucose 190 mg/dl H 08/28/17 1717 Bedside Blood Glucose 194 mg/dl H 08/28/17 1245 Bedside Blood Glucose 203 mg/dl H 08/28/17 1029 Bedside Blood Glucose 110 mg/dl 08/28/17 0500 Bedside Blood Glucose 472 mg/dl H 08/28/17 0044 Bedside Blood Glucose 430 mg/dl H 08/27/178 KAYLEE DARNELL Aug 28, 2017 19:24
--- NOTE | 2017-08-28 19:24 | General Progress Note ---
Assessment/Plan Problem List: (1) DKA (diabetic ketoacidoses) ICD Codes: E13.10 - Other specified diabetes mellitus with ketoacidosis without coma SNOMED: 46379775, 781837390 (2) Altered level of consciousness ICD Codes: R40.4 - Transient alteration of awareness SNOMED: 8806560 (3) Hyperkalemia ICD Codes: E87.5 - Hyperkalemia SNOMED: 87005920 (4) Rhabdomyolysis ICD Codes: M62.82 - Rhabdomyolysis SNOMED: 013413660, 785997827 (5) Diabetes mellitus out of control ICD Codes: E11.65 - Type 2 diabetes mellitus with hyperglycemia SNOMED: 296380574, 44426758 (6) Sepsis ICD Codes: A41.9 - Sepsis, unspecified organism SNOMED: 79120500 (7) Hypothyroidism ICD Codes: E03.9 - Hypothyroidism, unspecified SNOMED: 93596120 Assessment/Plan continue Levemir 7units bid continue Novolog sliding scale every 4 hours continue Levothyroxine 75 mcg daily - TSH was normal on presentation and repeat value was elevated to 9 the reason for this change in value is Levothyroxine being held for couple of days after admission - no need to increase dosage repeat TFTs in 2 weeks Subjective ROS Limited/Unobtainable: Yes Allergies: Coded Allergies: No Known Allergies (Unverified , 08/18/17) Subjective events noted - interval notes reviewed being transfused with PRBC lethargic TF is tolerated doing poorly Objective Last 24 Hour Vital Signs Date Time Temp Pulse Resp B/P (MAP) Pulse Ox O2 Delivery O2 Flow Rate FiO2 08/28/17 16:00 98.1 97 26 113/60 93 Non-Rebreather 100 08/28/17 16:00 99 08/28/17 13:37 99.0 08/28/17 12:00 99.5 100 24 121/67 99 Non-Rebreather 100 08/28/17 12:00 94 08/28/17 09:39 127/66 08/28/17 09:37 100 127/66 08/28/17 08:00 91 08/28/17 08:00 99.0 92 22 127/66 100 Non-Rebreather 100 08/28/17 04:00 98.6 100 21 150/65 100 Non-Rebreather 100 08/28/17 04:00 112 10/9/17 04:00 98.2 98 20 114/76 95 Non-Rebreather 100 08/28/17 00:18 100.0 08/28/17 00:00 99.0 102 22 145/72 100 Non-Rebreather 100 08/28/17 00:00 105 08/27/17 23:06 100.6 08/27/17 20:00 99.8 107 18 158/62 100 Venturi Mask 50 105 08/27/17 19:28 105 Intake and Output 08/28/17 08/29/17 19:00 07:00 Intake Total 805 ml Output Total 550 ml Balance 255 ml Free Water 200 ml Tube Feeding 605 ml Output Urine Total 550 ml Laboratory Tests 08/28/17 00:49: Arterial Blood pH 7.532H, Arterial Blood Partial Pressure CO2 38.5, Arterial Blood Partial Pressure O2 56.7L, Arterial Blood HCO3 31.6H, Arterial Blood Oxygen Saturation 90.7L, Arterial Blood Base Excess 8.3, Adolfo Test Positive 08/28/17 04:00: White Blood Count 14.7H, Red Blood Count 2.22L, Hemoglobin 7.6L, Hematocrit 22.7L, Mean Corpuscular Volume 103H, Mean Corpuscular Hemoglobin 34.4H, Mean Corpuscular Hemoglobin Concent 33.6, Red Cell Distribution Width 15.4H, Platelet Count 176, Mean Platelet Volume 8.3, Neutrophils (%) (Auto) , Lymphocytes (%) (Auto) , Monocytes (%) (Auto) , Eosinophils (%) (Auto) , Basophils (%) (Auto) , Differential Total Cells Counted 100, Neutrophils % ( Manual) 87H, Lymphocytes % (Manual) 5L, Monocytes % (Manual) 6, Eosinophils % ( Manual) 0, Basophils % (Manual) 0, Band Neutrophils 2, Platelet Estimate Adequate, Platelet Morphology Normal, Hypochromasia 1+, Anisocytosis 1+, Macrocytosis 1+, Sodium Level 152H, Potassium Level 3.3L, Chloride Level 110H, Carbon Dioxide Level 36H, Anion Gap 6, Blood Urea Nitrogen 35H, Creatinine 1.0, Estimat Glomerular Filtration Rate > 60, Glucose Level 153H, Calcium Level 8.8, Pro-B-Type Natriuretic Peptide 1337H Height (Feet): 5 Height (Inches): 3.00 Weight (Pounds): 110 General Appearance: moderate distress EENT: pale conjunctivae Neck: normal alignment Cardiovascular: tachycardia Respiratory/Chest: decreased breath sounds Pelvis: normal external exam Edema: 1+ Arm (L), 1+ Arm (R), 1+ Leg (L), 1+ Leg (R), 1+ Pedal (L), 1+ Pedal ( R), 1+ Generalized Objective Current Medications Medications (Trade) Dose Ordered Sig/Adonay Route PRN Reason Start Time Stop Time Status Last Admin Dose Admin Acetaminophen (Tylenol) 650 mg Q6H PRN ORAL Mild Pain/Temp > 100.5 08/21/17 20:00 09/18/17 07:59 08/27/17 23:19 Amlodipine Besylate (Norvasc) 10 mg DAILY NG 08/23/17 09:00 09/22/17 08:59 08/28/17 09:37 Ascorbic Acid (Vitamin C) 500 mg DAILY NG 08/23/17 09:00 09/22/17 08:59 08/28/17 09:39 Baclofen (Lioresal) 10 mg THREE TIMES A DAY NG 08/23/17 09:00 09/22/17 08:59 08/28/17 17:17 Citalopram Hydrobromide (celeXA) 20 mg DAILY GT 08/27/17 09:00 09/18/17 08:59 08/28/17 09:00 Clonidine HCl (Catapres) 0.1 mg Q6H PRN NG SBP > 160mmHg 08/23/17 08:30 09/22/17 08:29 Dextrose (Dextrose 50%) STAT PRN IV Hypoglycemia 08/21/17 20:00 09/20/17 19:59 08/28/17 09:30 Ferrous Sulfate (Feosol) 300 mg DAILY NG 08/27/17 09:00 09/26/17 08:59 08/28/17 09:38 Insulin Aspart (NovoLOG) EVERY 4 HOURS SUBQ 08/21/17 21:00 09/19/17 08:59 08/28/17 17:17 Insulin Detemir (Levemir) 7 units Q12HR SUBQ 08/27/17 21:00 09/26/17 20:59 08/28/17 10:29 Lansoprazole (Prevacid) 30 mg DAILY NG 08/24/17 09:00 09/23/17 08:59 08/28/17 09:39 Levothyroxine Sodium (Synthroid) 75 mcg ACBREAKFAST NG 08/24/17 06:30 09/23/17 06:29 08/28/17 06:18 Lorazepam (Ativan) 0.5 mg Q8H PRN NG For Anxiety 08/23/17 12:00 08/30/17 11:59 08/28/17 09:39 Losartan Potassium (Cozaar) 50 mg DAILY NG 08/23/17 09:00 09/22/17 08:59 08/28/17 09:39 Metronidazole (Flagyl) 500 mg EVERY 8 HOURS ORAL 08/28/17 22:00 09/04/17 21:59 Multivitamins (Multivitamins) 1 tab DAILY ORAL 08/22/17 09:00 09/18/17 08:59 08/28/17 09:37 Ondansetron HCl (Zofran) 4 mg Q6H PRN NG Nausea & Vomiting 08/26/17 15:30 09/18/17 07:59 Oxycodone/ Acetaminophen (Percocet 5-325) 1 tab Q6H PRN ORAL for severe breakthrough pain 08/26/17 15:30 09/02/17 10:44 08/28/17 12:38 Piperacillin Sod/ Tazobactam Sod 3.375 gm/Dextrose 100 ml @ 25 mls/hr EVERY 8 HOURS IVPB 08/28/17 22:00 09/02/17 21:59 Potassium Chloride (KCl 10% 40mEq Oral solution) 40 meq TWICE A DAY NG 08/24/17 18:00 09/23/17 17:59 08/28/17 17:19 Vancomycin HCl (Vanco rx to dose) 1 ea DAILY PRN MISC Per rx protocol 08/28/17 16:15 09/27/17 16:14 Vancomycin HCl 1 gm/Dextrose 275 ml @ 183.708 mls/hr ONCE ONCE IVPB 08/28/17 18:00 08/28/17 19:29 Vancomycin/Sodium Chloride 250 ml @ 166.667 mls/hr Q24H IVPB 08/29/17 18:00 09/03/17 17:59 Item Value Date Time Bedside Blood Glucose 190 mg/dl H 08/28/17 1717 Bedside Blood Glucose 194 mg/dl H 08/28/17 1245 Bedside Blood Glucose 203 mg/dl H 08/28/17 1029 Bedside Blood Glucose 110 mg/dl 08/28/17 0500 Bedside Blood Glucose 472 mg/dl H 08/28/17 0044 Bedside Blood Glucose 430 mg/dl H 08/27/178 KAYLEE DARNELL Aug 28, 2017 19:24
[2017-08-28 20:00] VITALS: BP 109/72
--- NOTE | 2017-08-28 21:26 | General Progress Note ---
Assessment/Plan Assessment/Plan Assessment - Respiratory failure - leukocytosis - UTI - Anemia - free water deficit / hypernatremia Recommendations - abx - optimize resp status - NGT feeds - will hold off on PEG placement for am - will re schedule for later this week Subjective Allergies: Coded Allergies: No Known Allergies (Unverified , 08/18/17) Subjective Above noted d/w multiple family members at bedside d/w pulmonary patient anemic - getting transfused free water deficit and persistent leukocytosis noted d/w brother this evening re planned PEG for am, and the higher risk of procedure given resp status brother requested to hold off a few days in hope of more improvement prior to placement Objective Last 24 Hour Vital Signs Date Time Temp Pulse Resp B/P (MAP) Pulse Ox O2 Delivery O2 Flow Rate FiO2 08/28/17 20:00 99.0 110 26 109/72 95 Non-Rebreather 08/28/17 16:00 98.1 97 26 113/60 93 Non-Rebreather 100 08/28/17 16:00 99 08/28/17 13:37 99.0 08/28/17 12:00 99.5 100 24 121/67 99 Non-Rebreather 100 08/28/17 12:00 94 08/28/17 09:39 127/66 08/28/17 09:37 100 127/66 08/28/17 08:00 91 08/28/17 08:00 99.0 92 22 127/66 100 Non-Rebreather 100 08/28/17 04:00 98.6 100 21 150/65 100 Non-Rebreather 100 08/28/17 04:00 112 08/28/17 04:00 98.2 98 20 114/76 95 Non-Rebreather 100 08/28/17 00:18 100.0 08/28/17 00:00 99.0 102 22 145/72 100 Non-Rebreather 100 08/28/17 00:00 105 08/27/17 23:06 100.6 Intake and Output 08/28/17 08/29/17 19:00 07:00 Intake Total 805 ml Output Total 550 ml Balance 255 ml Free Water 200 ml Tube Feeding 605 ml Output Urine Total 550 ml Laboratory Tests 08/28/17 00:49: Arterial Blood pH 7.532H, Arterial Blood Partial Pressure CO2 38.5, Arterial Blood Partial Pressure O2 56.7L, Arterial Blood HCO3 31.6H, Arterial Blood Oxygen Saturation 90.7L, Arterial Blood Base Excess 8.3, Adolfo Test Positive 08/28/17 04:00: White Blood Count 14.7H, Red Blood Count 2.22L, Hemoglobin 7.6L, Hematocrit 22.7L, Mean Corpuscular Volume 103H, Mean Corpuscular Hemoglobin 34.4H, Mean Corpuscular Hemoglobin Concent 33.6, Red Cell Distribution Width 15.4H, Platelet Count 176, Mean Platelet Volume 8.3, Neutrophils (%) (Auto) , Lymphocytes (%) (Auto) , Monocytes (%) (Auto) , Eosinophils (%) (Auto) , Basophils (%) (Auto) , Differential Total Cells Counted 100, Neutrophils % ( Manual) 87H, Lymphocytes % (Manual) 5L, Monocytes % (Manual) 6, Eosinophils % ( Manual) 0, Basophils % (Manual) 0, Band Neutrophils 2, Platelet Estimate Adequate, Platelet Morphology Normal, Hypochromasia 1+, Anisocytosis 1+, Macrocytosis 1+, Sodium Level 152H, Potassium Level 3.3L, Chloride Level 110H, Carbon Dioxide Level 36H, Anion Gap 6, Blood Urea Nitrogen 35H, Creatinine 1.0, Estimat Glomerular Filtration Rate > 60, Glucose Level 153H, Calcium Level 8.8, Pro-B-Type Natriuretic Peptide 1337H Height (Feet): 5 Height (Inches): 3.00 Weight (Pounds): 110 Objective Thin AA woman NCAT (+) NGT and face mask O2 Neck supple Chest: b/l wheezes and ronchi RRR soft ND NT no edema ERIKA ESPINOSA Aug 28, 2017 21:26
[2017-08-28] MEDS: metroNIDAZOLE 500mg tab ORAL SCH (22:09)
[2017-08-29] VITALS: BP 109/72
[2017-08-29] MEDS: Acetaminophen 500mg (ES) tab ORAL PRN ×2 (00:10→09:42)
[2017-08-29] MEDS: NovoLOG Insulin Flexpen SUBQ SCH ×6 (00:22→22:15)
--- NOTE | 2017-08-29 01:45 | Consultation ---
DATE OF CONSULTATION: 08/28/2017 INFECTIOUS DISEASE CONSULTATION CONSULTING PHYSICIAN: Diego Fatima M.D. ATTENDING PHYSICIAN: Prabhu Winn M.D. REASON FOR CONSULTATION: Sepsis, history of Klebsiella UTI, worsening leukocytosis, and fevers. CHIEF COMPLAINT: The patient's chief complaint coming in to the hospital is sepsis, hypokalemia, and rhabdomyolysis. 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 She was started on Rocephin, which covered the Klebsiella UTI that she had. The patient now is short of breath and has worsening leukocytosis with fevers. An Infectious Disease consultation was requested. The patient's Rocephin will be discontinued and the patient will be placed on vancomycin, Zosyn, and also Flagyl. The patient will be recultured. MAR was noted. Orders were noted. Notes and records were reviewed. Case was discussed with RN. The patient cannot add to this history. She is lethargic. She is short of breath. PAST MEDICAL HISTORY: The patient has a past medical history of dementia, hypertension, diabetes, depression, anxiety, and chronic pain syndrome. She came in with altered level of consciousness. She has anemia. She has hypernatremia, diabetes, hypertension, dementia, depression, anxiety, and she has other medical problems. As I discussed, she came in with DKA. MEDICATIONS: Upon reviewing the MAR, she is on the following medications: She is on Levemir; NovoLog insulin; Celexa; Feosol; oxycodone; potassium chloride; furosemide; pantoprazole; amlodipine; lorazepam; ascorbic acid; losartan; clonidine; Rocephin, which I have discontinued; Celexa; baclofen; Cozaar; multivitamins; IV fluids; and morphine in the past. ALLERGIES: No known drug allergies. SOCIAL HISTORY: No mention of smoking, alcohol, or drug abuse. FAMILY HISTORY: Noncontributory. REVIEW OF SYSTEMS: CONSTITUTIONAL: She has generalized weakness, fatigued, poorly responsive, and nonverbal. HEAD AND NECK: She has a breathing mask. CARDIAC: No pressors. GASTROINTESTINAL: No nausea or vomiting. I did not see a rectal tube at this time. We will discuss with the nursing about diarrhea, but I could not appreciate any diarrhea at this time. PULMONARY: She is congested, short of breath, on a breathing mask. No hemoptysis. No significant secretions noted. SKIN: Multiple wounds were all reviewed. NEUROLOGIC: No seizures. She has generalized weakness. She has fevers. Otherwise, review of systems is limited in this patient. PHYSICAL EXAMINATION: GENERAL: The patient is lethargic and poorly responsive. VITAL SIGNS: Temperature is 99.5 degrees, pulse rate 100, respiratory rate 24, blood pressure 121/67, and saturation 99%. She is on 100% nonrebreather. HEAD AND NECK: She is on a nonrebreather. Normocephalic. Eye exam, no icterus. Oral exam, no obvious thrush. Neck is supple. HEART: Regular. Tachycardic. No obvious gallop or murmur. ABDOMEN: Soft. Positive bowel sounds. LUNGS: Bilateral rhonchi, crackles, and rales. SKIN: Multiple wounds were noted and reviewed. They do not look acutely infected. MUSCULOSKELETAL: No effusion. Legs are without cellulitis. PERIPHERAL VASCULAR: No cyanosis. No obvious maculopapular rash. NEUROLOGIC: Generalized weakness. Poorly responsive. LINES: Line sites without phlebitis. GENITOURINARY: She has a Esposito. Urine is cloudy. LABORATORY DATA: Laboratory data is as follows. Sodium 152, potassium 3.3, and creatinine is 1.0. The patient's white count initially was 3.5 and hemoglobin 9.8. Again, initial potassium was 3.3. Now, white count has increased to as high as 19.8, now it is 14.7 and hemoglobin 7.6. Creatinine now is 1.0 with sodium being 152. Again, potassium 3.3. CULTURES: Blood cultures have been negative. Wound cultures grew out coagulase-negative Staphylococcus and diphtheroids, likely contaminant. Followup urine culture negative. Initially, urine culture with Klebsiella sensitive to cephalosporins, piperacillin and tazobactam, and carbapenems. IMAGING STUDIES: Chest x-ray shows the following. It shows edema, which has improved. This is from 08/28/2017. Two days ago, it showed interstitial airspace opacities bilaterally and previous to that it showed possible pneumonia or inflammatory process with these opacities. ASSESSMENT AND PLAN: 1. The patient has sepsis, worsening leukocytosis, and fevers. The patient's temperature was as high as 100.6 degrees with significantly worsening leukocytosis. She has elevated heart rate and respiratory rate consistent with systemic inflammatory response syndrome criteria. Sepsis could be multifactorial including Klebsiella urinary tract infection, however, at this time, she is at high risk for aspiration and healthcare-acquired pneumonia. She also has possible Clostridium difficile. Even now, I am not sure if she has diarrhea. There is no obvious diarrhea. She does have hypokalemia and that could be suspicious for Clostridium difficile. Continue antibiotics, vancomycin and Zosyn, to cover methicillin-resistant Staphylococcus aureus and gram negatives including Pseudomonas extended spectrum beta-lactamases and other gram negatives. I would also discontinue Rocephin, and I am going to start Flagyl empirically and check for Clostridium difficile diarrhea. I will discuss with nursing staff about this. Continue antibiotics. Check followup cultures, labs, and chest x-ray. Continue pulmonary treatment at this time. 2. The patient has history of diabetes. 3. Hypertension. 4. Anemia. 5. Respiratory insufficiency. 6. Blood sugar and blood pressure control per primary. 7. Diabetic ketoacidosis. 8. History of anxiety. 9. Depression. 10. Dementia. 11. Chronic pain syndrome. 12. Aspiration risk. 13. Altered mental status. 14. Poor historian. 15. No known allergies. 16. Social history is negative. 17. Family history is noncontributory. 18. MAR was noted. 19. Case was discussed with RN. 20. Notes and records were noted. 21. Skin care protocol. 22. I have reviewed the wounds. I do not think this is her source of sepsis. Continue local wound care protocol. 23. Continue treatment per Dr. Winn. Diego Fatima M.D. DR: ALBINA JOB#: [id number] CC:
[2017-08-29 04:00] VITALS: BP 125/55
[2017-08-29] MEDS: metroNIDAZOLE 500mg tab ORAL SCH ×3 (05:27→22:16)
--- NOTE | 2017-08-29 06:09 | General Progress Note ---
Assessment/Plan Problem List: (1) DKA (diabetic ketoacidoses) ICD Codes: E13.10 - Other specified diabetes mellitus with ketoacidosis without coma SNOMED: 08941274, 446927003 (2) Altered level of consciousness ICD Codes: R40.4 - Transient alteration of awareness SNOMED: 2957543 (3) Hyperkalemia ICD Codes: E87.5 - Hyperkalemia SNOMED: 70822659 (4) Rhabdomyolysis ICD Codes: M62.82 - Rhabdomyolysis SNOMED: 069360261, 197924923 (5) Diabetes mellitus out of control ICD Codes: E11.65 - Type 2 diabetes mellitus with hyperglycemia SNOMED: 081970996, 29689574 (6) Sepsis ICD Codes: A41.9 - Sepsis, unspecified organism SNOMED: 51235239 (7) Hypothyroidism ICD Codes: E03.9 - Hypothyroidism, unspecified SNOMED: 37676441 Assessment/Plan continue Levemir 7units bid continue Novolog sliding scale every 4 hours continue Levothyroxine 75 mcg daily - TSH was normal on presentation and repeat value was elevated to 9 the reason for this change in value is Levothyroxine being held for couple of days after admission - no need to increase dosage repeat TFTs in 2 weeks Subjective ROS Limited/Unobtainable: Yes Allergies: Coded Allergies: No Known Allergies (Unverified , 08/18/17) Subjective events noted - interval notes reviewed Objective Last 24 Hour Vital Signs Date Time Temp Pulse Resp B/P (MAP) Pulse Ox O2 Delivery O2 Flow Rate FiO2 08/29/17 04:00 97.5 79 24 125/55 93 Non-Rebreather 100 08/29/17 01:09 99.1 08/29/17 00:00 99.1 89 24 109/72 100 Non-Rebreather 100 08/29/17 00:00 87 08/28/17 21:44 99.0 08/28/17 20:00 94 08/28/17 20:00 99.0 110 26 109/72 95 Non-Rebreather 08/28/17 19:00 98 Venturi Mask 12.0 50 08/28/17 19:00 Venturi Mask 12.0 50 08/28/17 16:00 98.1 97 26 113/60 93 Non-Rebreather 100 08/28/17 16:00 99 08/28/17 12:00 99.5 100 24 121/67 99 Non-Rebreather 100 08/28/17 12:00 94 08/28/17 09:39 127/66 08/28/17 09:37 100 127/66 08/28/17 08:00 91 08/28/17 08:00 99.0 92 22 127/66 100 Non-Rebreather 100 Height (Feet): 5 Height (Inches): 3.00 Weight (Pounds): 110 General Appearance: moderate distress EENT: pale conjunctivae Neck: normal alignment Cardiovascular: normal rate Respiratory/Chest: lungs clear Abdomen: normal bowel sounds Objective Current Medications Medications (Trade) Dose Ordered Sig/Adonay Route PRN Reason Start Time Stop Time Status Last Admin Dose Admin Acetaminophen (Tylenol) 650 mg Q6H PRN ORAL Mild Pain/Temp > 100.5 08/21/17 20:00 09/18/17 07:59 08/29/17 00:10 Amlodipine Besylate (Norvasc) 10 mg DAILY NG 08/23/17 09:00 09/22/17 08:59 08/28/17 09:37 Ascorbic Acid (Vitamin C) 500 mg DAILY NG 08/23/17 09:00 09/22/17 08:59 08/28/17 09:39 Baclofen (Lioresal) 10 mg THREE TIMES A DAY NG 08/23/17 09:00 09/22/17 08:59 08/28/17 17:17 Citalopram Hydrobromide (celeXA) 20 mg DAILY GT 08/27/17 09:00 09/18/17 08:59 08/28/17 09:00 Clonidine HCl (Catapres) 0.1 mg Q6H PRN NG SBP > 160mmHg 08/23/17 08:30 09/22/17 08:29 Dextrose (Dextrose 50%) STAT PRN IV Hypoglycemia 08/21/17 20:00 09/20/17 19:59 08/28/17 09:30 Ferrous Sulfate (Feosol) 300 mg DAILY NG 08/27/17 09:00 09/26/17 08:59 08/28/17 09:38 Insulin Aspart (NovoLOG) EVERY 4 HOURS SUBQ 08/21/17 21:00 09/19/17 08:59 08/29/17 00:22 Insulin Detemir (Levemir) 7 units Q12HR SUBQ 08/27/17 21:00 09/26/17 20:59 08/28/17 20:55 Lansoprazole (Prevacid) 30 mg DAILY NG 08/24/17 09:00 09/23/17 08:59 08/28/17 09:39 Levothyroxine Sodium (Synthroid) 75 mcg ACBREAKFAST NG 08/24/17 06:30 09/23/17 06:29 08/29/17 05:30 Lorazepam (Ativan) 0.5 mg Q8H PRN NG For Anxiety 08/23/17 12:00 08/30/17 11:59 08/28/17 09:39 Losartan Potassium (Cozaar) 50 mg DAILY NG 08/23/17 09:00 09/22/17 08:59 08/28/17 09:39 Metronidazole (Flagyl) 500 mg EVERY 8 HOURS ORAL 08/28/17 22:00 09/04/17 21:59 08/29/17 05:27 Multivitamins (Multivitamins) 1 tab DAILY ORAL 08/22/17 09:00 09/18/17 08:59 08/28/17 09:37 Ondansetron HCl (Zofran) 4 mg Q6H PRN NG Nausea & Vomiting 08/26/17 15:30 09/18/17 07:59 Oxycodone/ Acetaminophen (Percocet 5-325) 1 tab Q6H PRN ORAL for severe breakthrough pain 08/26/17 15:30 09/02/17 10:44 08/28/17 20:45 Piperacillin Sod/ Tazobactam Sod 3.375 gm/Dextrose 100 ml @ 25 mls/hr EVERY 8 HOURS IVPB 08/28/17 22:00 09/02/17 21:59 08/29/17 05:26 Potassium Chloride (KCl 10% 40mEq Oral solution) 40 meq TWICE A DAY NG 08/24/17 18:00 09/23/17 17:59 08/28/17 17:19 Vancomycin HCl (Vanco rx to dose) 1 ea DAILY PRN MISC Per rx protocol 08/28/17 16:15 09/27/17 16:14 Vancomycin/Sodium Chloride 250 ml @ 166.667 mls/hr Q24H IVPB 08/29/17 18:00 09/03/17 17:59 Item Value Date Time Bedside Blood Glucose 71 mg/dl 08/29/17 0557 Bedside Blood Glucose 175 mg/dl H 08/29/17 0022 Bedside Blood Glucose 206 mg/dl H 08/28/175 Bedside Blood Glucose 190 mg/dl H 08/28/17 1717 Bedside Blood Glucose 194 mg/dl H 08/28/17 1245 KAYLEE DARNELL Aug 29, 2017 06:09
--- NOTE | 2017-08-29 06:09 | General Progress Note ---
Assessment/Plan Problem List: (1) DKA (diabetic ketoacidoses) ICD Codes: E13.10 - Other specified diabetes mellitus with ketoacidosis without coma SNOMED: 59454441, 177543355 (2) Altered level of consciousness ICD Codes: R40.4 - Transient alteration of awareness SNOMED: 4185187 (3) Hyperkalemia ICD Codes: E87.5 - Hyperkalemia SNOMED: 62595724 (4) Rhabdomyolysis ICD Codes: M62.82 - Rhabdomyolysis SNOMED: 801830785, 124621544 (5) Diabetes mellitus out of control ICD Codes: E11.65 - Type 2 diabetes mellitus with hyperglycemia SNOMED: 997107282, 69758414 (6) Sepsis ICD Codes: A41.9 - Sepsis, unspecified organism SNOMED: 86581518 (7) Hypothyroidism ICD Codes: E03.9 - Hypothyroidism, unspecified SNOMED: 79176634 Assessment/Plan continue Levemir 7units bid continue Novolog sliding scale every 4 hours continue Levothyroxine 75 mcg daily - TSH was normal on presentation and repeat value was elevated to 9 the reason for this change in value is Levothyroxine being held for couple of days after admission - no need to increase dosage repeat TFTs in 2 weeks Subjective ROS Limited/Unobtainable: Yes Allergies: Coded Allergies: No Known Allergies (Unverified , 08/18/17) Subjective events noted - interval notes reviewed Objective Last 24 Hour Vital Signs Date Time Temp Pulse Resp B/P (MAP) Pulse Ox O2 Delivery O2 Flow Rate FiO2 08/29/17 04:00 97.5 79 24 125/55 93 Non-Rebreather 100 08/29/17 01:09 99.1 08/29/17 00:00 99.1 89 24 109/72 100 Non-Rebreather 100 08/29/17 00:00 87 08/28/17 21:44 99.0 08/28/17 20:00 94 08/28/17 20:00 99.0 110 26 109/72 95 Non-Rebreather 08/28/17 19:00 98 Venturi Mask 12.0 50 08/28/17 19:00 Venturi Mask 12.0 50 08/28/17 16:00 98.1 97 26 113/60 93 Non-Rebreather 100 08/28/17 16:00 99 08/28/17 12:00 99.5 100 24 121/67 99 Non-Rebreather 100 08/28/17 12:00 94 08/28/17 09:39 127/66 08/28/17 09:37 100 127/66 08/28/17 08:00 91 08/28/17 08:00 99.0 92 22 127/66 100 Non-Rebreather 100 Height (Feet): 5 Height (Inches): 3.00 Weight (Pounds): 110 General Appearance: moderate distress EENT: pale conjunctivae Neck: normal alignment Cardiovascular: normal rate Respiratory/Chest: lungs clear Abdomen: normal bowel sounds Objective Current Medications Medications (Trade) Dose Ordered Sig/Adonay Route PRN Reason Start Time Stop Time Status Last Admin Dose Admin Acetaminophen (Tylenol) 650 mg Q6H PRN ORAL Mild Pain/Temp > 100.5 08/21/17 20:00 09/18/17 07:59 08/29/17 00:10 Amlodipine Besylate (Norvasc) 10 mg DAILY NG 08/23/17 09:00 09/22/17 08:59 08/28/17 09:37 Ascorbic Acid (Vitamin C) 500 mg DAILY NG 08/23/17 09:00 09/22/17 08:59 08/28/17 09:39 Baclofen (Lioresal) 10 mg THREE TIMES A DAY NG 08/23/17 09:00 09/22/17 08:59 08/28/17 17:17 Citalopram Hydrobromide (celeXA) 20 mg DAILY GT 08/27/17 09:00 09/18/17 08:59 08/28/17 09:00 Clonidine HCl (Catapres) 0.1 mg Q6H PRN NG SBP > 160mmHg 08/23/17 08:30 09/22/17 08:29 Dextrose (Dextrose 50%) STAT PRN IV Hypoglycemia 08/21/17 20:00 09/20/17 19:59 08/28/17 09:30 Ferrous Sulfate (Feosol) 300 mg DAILY NG 08/27/17 09:00 09/26/17 08:59 08/28/17 09:38 Insulin Aspart (NovoLOG) EVERY 4 HOURS SUBQ 08/21/17 21:00 09/19/17 08:59 08/29/17 00:22 Insulin Detemir (Levemir) 7 units Q12HR SUBQ 08/27/17 21:00 09/26/17 20:59 08/28/17 20:55 Lansoprazole (Prevacid) 30 mg DAILY NG 08/24/17 09:00 09/23/17 08:59 08/28/17 09:39 Levothyroxine Sodium (Synthroid) 75 mcg ACBREAKFAST NG 08/24/17 06:30 09/23/17 06:29 08/29/17 05:30 Lorazepam (Ativan) 0.5 mg Q8H PRN NG For Anxiety 08/23/17 12:00 08/30/17 11:59 08/28/17 09:39 Losartan Potassium (Cozaar) 50 mg DAILY NG 08/23/17 09:00 09/22/17 08:59 08/28/17 09:39 Metronidazole (Flagyl) 500 mg EVERY 8 HOURS ORAL 08/28/17 22:00 09/04/17 21:59 08/29/17 05:27 Multivitamins (Multivitamins) 1 tab DAILY ORAL 08/22/17 09:00 09/18/17 08:59 08/28/17 09:37 Ondansetron HCl (Zofran) 4 mg Q6H PRN NG Nausea & Vomiting 08/26/17 15:30 09/18/17 07:59 Oxycodone/ Acetaminophen (Percocet 5-325) 1 tab Q6H PRN ORAL for severe breakthrough pain 08/26/17 15:30 09/02/17 10:44 08/28/17 20:45 Piperacillin Sod/ Tazobactam Sod 3.375 gm/Dextrose 100 ml @ 25 mls/hr EVERY 8 HOURS IVPB 08/28/17 22:00 09/02/17 21:59 08/29/17 05:26 Potassium Chloride (KCl 10% 40mEq Oral solution) 40 meq TWICE A DAY NG 08/24/17 18:00 09/23/17 17:59 08/28/17 17:19 Vancomycin HCl (Vanco rx to dose) 1 ea DAILY PRN MISC Per rx protocol 08/28/17 16:15 09/27/17 16:14 Vancomycin/Sodium Chloride 250 ml @ 166.667 mls/hr Q24H IVPB 08/29/17 18:00 09/03/17 17:59 Item Value Date Time Bedside Blood Glucose 71 mg/dl 08/29/17 0557 Bedside Blood Glucose 175 mg/dl H 08/29/17 0022 Bedside Blood Glucose 206 mg/dl H 08/28/175 Bedside Blood Glucose 190 mg/dl H 08/28/17 1717 Bedside Blood Glucose 194 mg/dl H 08/28/17 1245 KAYLEE DARNELL Aug 29, 2017 06:09
--- NOTE | 2017-08-29 06:09 | General Progress Note ---
Assessment/Plan Problem List: (1) DKA (diabetic ketoacidoses) ICD Codes: E13.10 - Other specified diabetes mellitus with ketoacidosis without coma SNOMED: 50866137, 384076715 (2) Altered level of consciousness ICD Codes: R40.4 - Transient alteration of awareness SNOMED: 1030112 (3) Hyperkalemia ICD Codes: E87.5 - Hyperkalemia SNOMED: 93380653 (4) Rhabdomyolysis ICD Codes: M62.82 - Rhabdomyolysis SNOMED: 485412372, 621574150 (5) Diabetes mellitus out of control ICD Codes: E11.65 - Type 2 diabetes mellitus with hyperglycemia SNOMED: 748452767, 11825470 (6) Sepsis ICD Codes: A41.9 - Sepsis, unspecified organism SNOMED: 32218270 (7) Hypothyroidism ICD Codes: E03.9 - Hypothyroidism, unspecified SNOMED: 20623131 Assessment/Plan continue Levemir 7units bid continue Novolog sliding scale every 4 hours continue Levothyroxine 75 mcg daily - TSH was normal on presentation and repeat value was elevated to 9 the reason for this change in value is Levothyroxine being held for couple of days after admission - no need to increase dosage repeat TFTs in 2 weeks Subjective ROS Limited/Unobtainable: Yes Allergies: Coded Allergies: No Known Allergies (Unverified , 08/18/17) Subjective events noted - interval notes reviewed Objective Last 24 Hour Vital Signs Date Time Temp Pulse Resp B/P (MAP) Pulse Ox O2 Delivery O2 Flow Rate FiO2 08/29/17 04:00 97.5 79 24 125/55 93 Non-Rebreather 100 08/29/17 01:09 99.1 08/29/17 00:00 99.1 89 24 109/72 100 Non-Rebreather 100 08/29/17 00:00 87 08/28/17 21:44 99.0 08/28/17 20:00 94 08/28/17 20:00 99.0 110 26 109/72 95 Non-Rebreather 08/28/17 19:00 98 Venturi Mask 12.0 50 08/28/17 19:00 Venturi Mask 12.0 50 08/28/17 16:00 98.1 97 26 113/60 93 Non-Rebreather 100 08/28/17 16:00 99 08/28/17 12:00 99.5 100 24 121/67 99 Non-Rebreather 100 08/28/17 12:00 94 08/28/17 09:39 127/66 08/28/17 09:37 100 127/66 08/28/17 08:00 91 08/28/17 08:00 99.0 92 22 127/66 100 Non-Rebreather 100 Height (Feet): 5 Height (Inches): 3.00 Weight (Pounds): 110 General Appearance: moderate distress EENT: pale conjunctivae Neck: normal alignment Cardiovascular: normal rate Respiratory/Chest: lungs clear Abdomen: normal bowel sounds Objective Current Medications Medications (Trade) Dose Ordered Sig/Adonay Route PRN Reason Start Time Stop Time Status Last Admin Dose Admin Acetaminophen (Tylenol) 650 mg Q6H PRN ORAL Mild Pain/Temp > 100.5 08/21/17 20:00 09/18/17 07:59 08/29/17 00:10 Amlodipine Besylate (Norvasc) 10 mg DAILY NG 08/23/17 09:00 09/22/17 08:59 08/28/17 09:37 Ascorbic Acid (Vitamin C) 500 mg DAILY NG 08/23/17 09:00 09/22/17 08:59 08/28/17 09:39 Baclofen (Lioresal) 10 mg THREE TIMES A DAY NG 08/23/17 09:00 09/22/17 08:59 08/28/17 17:17 Citalopram Hydrobromide (celeXA) 20 mg DAILY GT 08/27/17 09:00 09/18/17 08:59 08/28/17 09:00 Clonidine HCl (Catapres) 0.1 mg Q6H PRN NG SBP > 160mmHg 08/23/17 08:30 09/22/17 08:29 Dextrose (Dextrose 50%) STAT PRN IV Hypoglycemia 08/21/17 20:00 09/20/17 19:59 08/28/17 09:30 Ferrous Sulfate (Feosol) 300 mg DAILY NG 08/27/17 09:00 09/26/17 08:59 08/28/17 09:38 Insulin Aspart (NovoLOG) EVERY 4 HOURS SUBQ 08/21/17 21:00 09/19/17 08:59 08/29/17 00:22 Insulin Detemir (Levemir) 7 units Q12HR SUBQ 08/27/17 21:00 09/26/17 20:59 08/28/17 20:55 Lansoprazole (Prevacid) 30 mg DAILY NG 08/24/17 09:00 09/23/17 08:59 08/28/17 09:39 Levothyroxine Sodium (Synthroid) 75 mcg ACBREAKFAST NG 08/24/17 06:30 09/23/17 06:29 08/29/17 05:30 Lorazepam (Ativan) 0.5 mg Q8H PRN NG For Anxiety 08/23/17 12:00 08/30/17 11:59 08/28/17 09:39 Losartan Potassium (Cozaar) 50 mg DAILY NG 08/23/17 09:00 09/22/17 08:59 08/28/17 09:39 Metronidazole (Flagyl) 500 mg EVERY 8 HOURS ORAL 08/28/17 22:00 09/04/17 21:59 08/29/17 05:27 Multivitamins (Multivitamins) 1 tab DAILY ORAL 08/22/17 09:00 09/18/17 08:59 08/28/17 09:37 Ondansetron HCl (Zofran) 4 mg Q6H PRN NG Nausea & Vomiting 08/26/17 15:30 09/18/17 07:59 Oxycodone/ Acetaminophen (Percocet 5-325) 1 tab Q6H PRN ORAL for severe breakthrough pain 08/26/17 15:30 09/02/17 10:44 08/28/17 20:45 Piperacillin Sod/ Tazobactam Sod 3.375 gm/Dextrose 100 ml @ 25 mls/hr EVERY 8 HOURS IVPB 08/28/17 22:00 09/02/17 21:59 08/29/17 05:26 Potassium Chloride (KCl 10% 40mEq Oral solution) 40 meq TWICE A DAY NG 08/24/17 18:00 09/23/17 17:59 08/28/17 17:19 Vancomycin HCl (Vanco rx to dose) 1 ea DAILY PRN MISC Per rx protocol 08/28/17 16:15 09/27/17 16:14 Vancomycin/Sodium Chloride 250 ml @ 166.667 mls/hr Q24H IVPB 08/29/17 18:00 09/03/17 17:59 Item Value Date Time Bedside Blood Glucose 71 mg/dl 08/29/17 0557 Bedside Blood Glucose 175 mg/dl H 08/29/17 0022 Bedside Blood Glucose 206 mg/dl H 08/28/175 Bedside Blood Glucose 190 mg/dl H 08/28/17 1717 Bedside Blood Glucose 194 mg/dl H 08/28/17 1245 KAYLEE DARNELL Aug 29, 2017 06:09
[2017-08-29 06:55] LABS: BASOPHILS % (AUTO) 1.5 % (0.0-2.0); EOSINOPHILS % (AUTO) 1.2 % (0.0-3.0); HEMATOCRIT 25.8 % (37.0-47.0); HEMOGLOBIN 8.4 G/DL (12.0-16.0); LYMPHOCYTES % (AUTO) 10.1 % (20.0-45.0); MEAN CORPUSCULAR VOLUME 102 FL (80-99); MONOCYTES % (AUTO) 6.5 % (1.0-10.0); NEUTROPHILS % (AUTO) 80.7 % (45.0-75.0); PLATELET COUNT 108 K/UL (150-450); RED BLOOD COUNT 2.53 M/UL (4.20-5.40); RED CELL DISTRIBUTION WIDTH 16.1 % (11.6-14.8); WHITE BLOOD COUNT 5.3 K/UL (4.8-10.8)
[2017-08-29 08:00] VITALS: BP 132/92
[2017-08-29] MEDS: Levemir Flexpen SUBQ SCH ×2 (09:39→22:14)
[2017-08-29] MEDS: Ascorbic Acid 500mg tab NG SCH (09:43)
[2017-08-29] MEDS: LORazepam 0.5mg tab NG PRN (09:43)
[2017-08-29] MEDS: Ferrous Sulfate 300 MG/5 ML UDC NG SCH (09:43)
[2017-08-29] MEDS: Citalopram Hydrobromide 10mg Tab GT SCH (09:43)
[2017-08-29] MEDS: Losartan 50mg tab NG SCH (09:45)
[2017-08-29] MEDS: KCl 10% 40mEq/30ml liquid NG SCH ×2 (09:47→17:59)
--- NOTE | 2017-08-29 11:58 | Diagnostic Imaging Report ---
Indication: SOB Technique: One view of the chest Comparison: 08/28/2017 Findings: Again demonstrated is diffuse interstitial edema, likely superimposed on chronic background interstitial fibrotic change, appearing stable there is a more nodular component on the left on the right. The pleural spaces are clear. The heart size is normal. There is a nasogastric tube again demonstrated. Left shoulder hardware is again demonstrated Impression: Unchanged, over one day, findings as above.
[2017-08-29 12:00] VITALS: BP 115/64
--- NOTE | 2017-08-29 13:53 | Pulmonology Progress Note ---
Assessment/Plan Assessment/Plan DKA, resolved DM w hypoglycemia, now stable UTI sepsis htn anxiety, depression chronic pain on meds AMS, improved but still confused lactic acidosis respiratory failure, interstitial edema Hypernatremia Looks better Abx per ID DM rx per Dr Andrade rx UTI, sepsis f/u CXR not better; likely pneumonia disc w RN PEG per GI when stable if family agrees possible [facility] transfer Subjective ROS Limited/Unobtainable: Yes Allergies: Coded Allergies: No Known Allergies (Unverified , 08/18/17) Objective Last 24 Hour Vital Signs Date Time Temp Pulse Resp B/P (MAP) Pulse Ox O2 Delivery O2 Flow Rate FiO2 08/29/17 12:00 98.1 78 22 115/64 97 Non-Rebreather 100 08/29/17 12:00 80 08/29/17 10:41 97.5 08/29/17 09:45 132/92 08/29/17 09:44 78 132/92 08/29/17 08:00 97.8 78 22 132/92 96 Non-Rebreather 100 08/29/17 08:00 76 08/29/17 07:27 Non-Rebreather 14.0 100 08/29/17 07:26 98 Non-Rebreather 14.0 100 08/29/17 04:00 79 08/29/17 04:00 97.5 79 24 125/55 93 Non-Rebreather 100 08/29/17 00:00 99.1 89 24 109/72 100 Non-Rebreather 100 08/29/17 00:00 87 08/28/17 21:44 99.0 08/28/17 20:00 94 08/28/17 20:00 99.0 110 26 109/72 95 Non-Rebreather 08/28/17 19:00 98 Venturi Mask 12.0 50 08/28/17 19:00 Venturi Mask 12.0 50 08/28/17 16:00 98.1 97 26 113/60 93 Non-Rebreather 100 08/28/17 16:00 99 Intake and Output 08/29/17 08/30/17 19:00 07:00 # Bowel Movements 2 General Appearance: no acute distress HEENT: normocephalic Respiratory/Chest: decreased breath sounds, rhonchi Cardiovascular: normal rate Laboratory Tests 08/29/17 04:40: White Blood Count 5.3#, Red Blood Count 2.53L, Hemoglobin 8.4L, Hematocrit 25.8L , Mean Corpuscular Volume 102H, Mean Corpuscular Hemoglobin 33.1H, Mean Corpuscular Hemoglobin Concent 32.5, Red Cell Distribution Width 16.1H, Platelet Count 108L, Mean Platelet Volume 7.8, Neutrophils (%) (Auto) 80.7H, Lymphocytes (%) (Auto) 10.1L, Monocytes (%) (Auto) 6.5, Eosinophils (%) (Auto) 1.2, Basophils (%) (Auto) 1.5 Current Medications Medications (Trade) Dose Ordered Sig/Adonay Route PRN Reason Start Time Stop Time Status Last Admin Dose Admin Acetaminophen (Tylenol) 650 mg Q6H PRN ORAL Mild Pain/Temp > 100.5 08/21/17 20:00 09/18/17 07:59 08/29/17 09:42 Amlodipine Besylate (Norvasc) 10 mg DAILY NG 08/23/17 09:00 09/22/17 08:59 08/29/17 09:44 Ascorbic Acid (Vitamin C) 500 mg DAILY NG 08/23/17 09:00 09/22/17 08:59 08/29/17 09:43 Baclofen (Lioresal) 10 mg THREE TIMES A DAY NG 08/23/17 09:00 09/22/17 08:59 08/29/17 12:57 Citalopram Hydrobromide (celeXA) 20 mg DAILY GT 08/27/17 09:00 09/18/17 08:59 08/29/17 09:43 Clonidine HCl (Catapres) 0.1 mg Q6H PRN NG SBP > 160mmHg 08/23/17 08:30 09/22/17 08:29 Dextrose (Dextrose 50%) STAT PRN IV Hypoglycemia 08/21/17 20:00 09/20/17 19:59 08/28/17 09:30 Ferrous Sulfate (Feosol) 300 mg DAILY NG 08/27/17 09:00 09/26/17 08:59 08/29/17 09:43 Insulin Aspart (NovoLOG) EVERY 4 HOURS SUBQ 08/21/17 21:00 09/19/17 08:59 08/29/17 13:02 Insulin Detemir (Levemir) 7 units Q12HR SUBQ 08/27/17 21:00 09/26/17 20:59 08/29/17 09:39 Lansoprazole (Prevacid) 30 mg DAILY NG 08/24/17 09:00 09/23/17 08:59 08/29/17 09:43 Levothyroxine Sodium (Synthroid) 75 mcg ACBREAKFAST NG 08/24/17 06:30 09/23/17 06:29 08/29/17 05:30 Lorazepam (Ativan) 0.5 mg Q8H PRN NG For Anxiety 08/23/17 12:00 08/30/17 11:59 08/29/17 09:43 Losartan Potassium (Cozaar) 50 mg DAILY NG 08/23/17 09:00 09/22/17 08:59 08/29/17 09:45 Metronidazole (Flagyl) 500 mg EVERY 8 HOURS ORAL 08/28/17 22:00 09/04/17 21:59 08/29/17 05:27 Multivitamins (Multivitamins) 1 tab DAILY ORAL 08/22/17 09:00 09/18/17 08:59 08/29/17 09:45 Ondansetron HCl (Zofran) 4 mg Q6H PRN NG Nausea & Vomiting 08/26/17 15:30 09/18/17 07:59 Oxycodone/ Acetaminophen (Percocet 5-325) 1 tab Q6H PRN ORAL for severe breakthrough pain 08/26/17 15:30 09/02/17 10:44 08/28/17 20:45 Piperacillin Sod/ Tazobactam Sod 3.375 gm/Dextrose 100 ml @ 25 mls/hr EVERY 8 HOURS IVPB 08/28/17 22:00 09/02/17 21:59 08/29/17 05:26 Potassium Chloride (KCl 10% 40mEq Oral solution) 40 meq TWICE A DAY NG 08/24/17 18:00 09/23/17 17:59 08/29/17 09:47 Vancomycin HCl (Vanco rx to dose) 1 ea DAILY PRN MISC Per rx protocol 08/28/17 16:15 09/27/17 16:14 Vancomycin/Sodium Chloride 250 ml @ 166.667 mls/hr Q24H IVPB 08/29/17 18:00 09/03/17 17:59 PATRICIA LUGO Aug 29, 2017 13:52
[2017-08-29] MEDS ORDERED: NS 500ML IV ONE (14:46)
[2017-08-29] MEDS ORDERED: Tubing Blood Filter IV ONE (14:46)
[2017-08-29] MEDS ORDERED: Tubing IV Secondary IV ONE (14:46)
[2017-08-29 16:00] VITALS: BP 115/62
[2017-08-29] MEDS: Vancomycin 750mg/NS 250ml IVPB SCH (18:00)
--- NOTE | 2017-08-29 19:12 | Wound Care Consultation ---
Wound Assessment Wound Assessment #1: Wound Present on Admission: Yes New Wound: No Status Change of Wound: No Wound Location Body Site Modif: mid Wound Location Body Site: sacral Wound Type: pressure ulcer Kimberli Test: Does not Kimberli Pressure Ulcer Stage: Unstageable - DTI reveled as unstagable pressure ulcer Wound Thickness: Full Thickness Wound Length: 6.0 Wound Width: 9.5 Wound Depth: utd Percent of Wound [place]/Red: 50 Percent of Wound Bed Yellow/Wh: 40 Percent of Wound Purple/Maroon: 10 Wound Drainage Description: Serosanguineous Wound Drainage Amount: Moderate Wound Drainage Odor: None/Absent Tissue Surrounding Wound: Macerated Wound General Appearance: Reddened - yellow, purple, Draining Wound Assessment #2: Wound Number: 2 Wound Present on Admission: Yes New Wound: No Status Change of Wound: No Wound Location Body Site Modif: left Wound Location Body Site: heel Wound Type: pressure ulcer Kimberli Test: Does not Kimberli Pressure Ulcer Stage: Deep Tissue Injury - still intact Wound Thickness: Full Thickness Wound Length: 4.0 Wound Width: 3.5 Wound Depth: utd Percent of Wound Purple/Maroon: 100 Wound Drainage Amount: None Wound Drainage Odor: None/Absent Tissue Surrounding Wound: Erythemic Wound General Appearance: Reddened - purple/maroon Wound Assessment #3: Wound Number: 3 Wound Present on Admission: Yes New Wound: No Status Change of Wound: No Wound Location Body Site Modif: right Wound Location Body Site: heel Wound Type: pressure ulcer Kimberli Test: Does not Kimberli Pressure Ulcer Stage: Deep Tissue Injury Wound Thickness: Full Thickness Wound Length: 4.0 Wound Width: 3.5 Wound Depth: utd Percent of Wound Purple/Maroon: 100 Wound Drainage Amount: None Wound Drainage Odor: None/Absent Tissue Surrounding Wound: Erythemic Wound General Appearance: Reddened - purple/maroon Wound Assessment #4: Wound Number: 4 Wound Present on Admission: Yes New Wound: No Status Change of Wound: No Wound Location Body Site Modif: right Wound Location Body Site: trochanter Wound Type: pressure ulcer Kimberli Test: Does not Kimberli Pressure Ulcer Stage: Deep Tissue Injury - still intact Wound Thickness: Full Thickness Wound Length: 4.5 Wound Width: 2.5 Wound Depth: utd Wound Drainage Amount: None Wound Drainage Odor: None/Absent Tissue Surrounding Wound: Erythemic Wound General Appearance: Reddened - purple Wound Assessment #5: Wound Number: 5 Wound Present on Admission: Yes New Wound: No Status Change of Wound: No Wound Location Body Site Modif: left Wound Location Body Site: trochanter Wound Type: pressure ulcer Kimberli Test: Does not Kimberli Pressure Ulcer Stage: Deep Tissue Injury - still intact Wound Thickness: Full Thickness Wound Length: 2.5 Wound Width: 2.5 Wound Depth: utd Percent of Wound Purple/Maroon: 100 Wound Drainage Amount: None Wound Drainage Odor: None/Absent Tissue Surrounding Wound: Erythemic Wound General Appearance: Reddened - purple Wound Assessment #6: Wound Number: 6 Wound Present on Admission: Yes New Wound: No Status Change of Wound: No Wound Location Body Site Modif: right Wound Location Body Site: ischial tuberosity Wound Type: pressure ulcer Kimberli Test: Does not Kimberli Pressure Ulcer Stage: I Wound Length: 2.5 Wound Width: 2.5 Percent of Wound [place]/Red: 100 Wound Drainage Amount: None Wound Drainage Odor: None/Absent Tissue Surrounding Wound: Intact Wound General Appearance: Reddened Wound Assessment #7: Wound Number: 7 Wound Present on Admission: Yes New Wound: No Status Change of Wound: No Wound Location Body Site Modif: left Wound Location Body Site: ischial tuberosity Wound Type: pressure ulcer Kimberli Test: Does not Kimberli Pressure Ulcer Stage: I Wound Length: 2.5 Wound Width: 2.5 Percent of Wound [place]/Red: 100 Wound Drainage Amount: None Wound Drainage Odor: None/Absent Tissue Surrounding Wound: Intact Wound General Appearance: Reddened Wound Assessment #8: Wound Number: 8 Wound Present on Admission: Yes New Wound: No Status Change of Wound: Yes Wound Location Body Site Modif: right, lower, lateral Wound Location Body Site: leg Wound Type: blister - open blister Kimberli Test: Does not Kimberli Pressure Ulcer Stage: II Wound Thickness: Partial Thickness Wound Length: 3.5 Wound Width: 2.5 Wound Depth: 0.1 Percent of Wound [place]/Red: 100 Wound Drainage Description: Serosanguineous Wound Drainage Amount: Scant Wound Drainage Odor: None/Absent Tissue Surrounding Wound: dry reabsorbed blister L 3.0 X W 2.5 Wound General Appearance: Reddened, Draining Wound Comment #1 Mid and right sacral area stage II pressure ulcer and surrounding skin DTI. DTI on the large surface reveled as unstageable pressure ulcer. Will change wound care treatment application to Therahoney gel on the wound bed. #2 Left heel DTI pressure ulcer. Still intact. will cont same wound care treatment and recommendation #3 Right heel DTI pressure ulcer. Still intact. will cont same wound care treatment and recommendation #4 Right trochanter DTI pressure ulcer. Still intact. will cont same wound care treatment and recommendation #5 Left trochanter DTI pressure ulcer. Still intact. will cont same wound care treatment and recommendation #6 Right ischial tuberosity stage I pressure ulcer. Still intact. will cont same wound care treatment and recommendation #7 Left ischial tuberosity stage I pressure ulcer. Still intact. will cont same wound care treatment and recommendation #8 Left lateral lower leg open and reabsorbed fluid filled blister. Local wound per protocol with Adaptic and dry dg application Cont Recommendation -Local wound care per protocol -Keep clean and dry -Turn and reposition -Offload both heels -Heel protector on both heels -Optimize nutrition -Low air loss mattress on both heels -assess and f/u accordingly for any changes ARTIS WILKES RN Aug 29, 2017 19:12
--- NOTE | 2017-08-29 19:20 | General Progress Note ---
Assessment/Plan Assessment/Plan Assessment - Respiratory failure - improving - leukocytosis - resolved - UTI - Anemia - free water deficit / hypernatremia - will add NGT flushes Recommendations - abx - optimize resp status - NGT feeds - PEG scheduled for - Can target d/c to [facility] Monday Subjective Allergies: Coded Allergies: No Known Allergies (Unverified , 08/18/17) Subjective Above noted looks better today tolerating TF No chem today Objective Last 24 Hour Vital Signs Date Time Temp Pulse Resp B/P (MAP) Pulse Ox O2 Delivery O2 Flow Rate FiO2 08/29/17 16:00 98.8 85 20 115/62 98 Non-Rebreather 100 08/29/17 16:00 88 08/29/17 12:00 98.1 78 22 115/64 97 Non-Rebreather 100 08/29/17 12:00 80 08/29/17 10:41 97.5 08/29/17 09:45 132/92 08/29/17 09:44 78 132/92 08/29/17 08:00 97.8 78 22 132/92 96 Non-Rebreather 100 08/29/17 08:00 76 08/29/17 07:27 Non-Rebreather 14.0 100 08/29/17 07:26 98 Non-Rebreather 14.0 100 08/29/17 04:00 79 08/29/17 04:00 97.5 79 24 125/55 93 Non-Rebreather 100 08/29/17 00:00 99.1 89 24 109/72 100 Non-Rebreather 100 08/29/17 00:00 87 08/28/17 21:44 99.0 08/28/17 20:00 94 08/28/17 20:00 99.0 110 26 109/72 95 Non-Rebreather Intake and Output 08/29/17 08/30/17 19:00 07:00 Intake Total 1155 ml Output Total 450 ml Balance 705 ml Free Water 450 ml IV Total 100 ml Tube Feeding 605 ml Output Urine Total 450 ml # Bowel Movements 4 Laboratory Tests 08/29/17 04:40: White Blood Count 5.3#, Red Blood Count 2.53L, Hemoglobin 8.4L, Hematocrit 25.8L , Mean Corpuscular Volume 102H, Mean Corpuscular Hemoglobin 33.1H, Mean Corpuscular Hemoglobin Concent 32.5, Red Cell Distribution Width 16.1H, Platelet Count 108L, Mean Platelet Volume 7.8, Neutrophils (%) (Auto) 80.7H, Lymphocytes (%) (Auto) 10.1L, Monocytes (%) (Auto) 6.5, Eosinophils (%) (Auto) 1.2, Basophils (%) (Auto) 1.5 Height (Feet): 5 Height (Inches): 3.00 Weight (Pounds): 109 Objective Thin AA woman NCAT (+) NGT and face mask O2 Neck supple Chest: b/l kassy RRR soft ND NT no edema ERIKA ESPINOSA Aug 29, 2017 19:20
[2017-08-29 20:00] VITALS: BP 128/64
--- NOTE | 2017-08-29 21:19 | Infectious Diseases Prog Note ---
Assessment/Plan Assessment/Plan ASSESSMENT AND PLAN: 1. sepsis, klebsiella uti, possible pna, leukocytosis and fevers, ? c.diff. - clinically more alert - leukocytosis and fevers better - continue zosyn, vancomycin and flaygl - check sc, labs, chest x-ray, check c.diff. if has diarrhea 2. The patient has history of diabetes. 3. Hypertension. 4. Anemia. 5. Respiratory insufficiency. 6. Blood sugar and blood pressure control per primary. 7. Diabetic ketoacidosis. 8. History of anxiety. 9. Depression. 10. Dementia. 11. Chronic pain syndrome. 12. Aspiration risk. 13. Altered mental status. 14. Poor historian. 15. No known allergies. 16. Social history is negative. 17. Family history is noncontributory. 18. MAR was noted. 19. Case was discussed with RN. 20. Notes and records were noted. 21. Skin care protocol. 22. I have reviewed the wounds. I do not think this is her source of sepsis. Continue local wound care protocol. wc - likely colonizer. 23. Continue treatment per Dr. Winn. Subjective Constitutional: Reports: other - more alert and responsive , Denies: fever HEENT: Reports: congestion Respiratory: Reports: shortness of breath Cardiovascular: Denies: chest pain Gastrointestinal/Abdominal: Denies: nausea, vomiting, diarrhea Genitourinary: Reports: other - + rowe Neurologic: Denies: headache Psychiatric: Denies: depression Skin: Denies: rash Hematologic: Denies: bleeding Musculoskeletal: Denies: pain Allergies: Coded Allergies: No Known Allergies (Unverified , 08/18/17) Objective Vital Signs Last 24 Hour Vital Signs Date Time Temp Pulse Resp B/P (MAP) Pulse Ox O2 Delivery O2 Flow Rate FiO2 08/29/17 16:00 98.8 85 20 115/62 98 Non-Rebreather 100 08/29/17 16:00 88 08/29/17 12:00 98.1 78 22 115/64 97 Non-Rebreather 100 08/29/17 12:00 80 08/29/17 10:41 97.5 08/29/17 09:45 132/92 08/29/17 09:44 78 132/92 08/29/17 08:00 97.8 78 22 132/92 96 Non-Rebreather 100 08/29/17 08:00 76 08/29/17 07:27 Non-Rebreather 14.0 100 08/29/17 07:26 98 Non-Rebreather 14.0 100 08/29/17 04:00 79 08/29/17 04:00 97.5 79 24 125/55 93 Non-Rebreather 100 08/29/17 00:00 99.1 89 24 109/72 100 Non-Rebreather 100 08/29/17 00:00 87 08/28/17 21:44 99.0 Height (Feet): 5 Height (Inches): 3.00 Weight (Pounds): 109 General Appearance: other - + bm and sob HEENT: normocephalic, atraumatic, anicteric, mucous membranes moist, EOMI, pharynx normal, supple, no JVD Respiratory/Chest: crackles/rales, rhonchi - bilaterally Cardiovascular: normal rate, regular rhythm, no gallop/murmur, no JVD Abdomen: normal bowel sounds, soft, non tender, no organomegaly, non distended Genitourinary: other - + rowe - urine cloudy Extremities: no cyanosis Skin: no rash 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 The pleural spaces are clear. The heart size is normal. There is a nasogastric tube again demonstrated. Left shoulder hardware is again demonstrated Impression: Unchanged, over one day, findings as above. Microbiology Date/Time Source Procedure Growth Status 08/26/17 03:55 Blood Blood Culture - Preliminary NO GROWTH AFTER 72 HOURS Resulted 08/18/17 21:45 Nasal Nares MRSA Culture - Final NO METHICILLIN RESISTANT STAPH AUREUS... Complete 08/25/17 15:30 Urine,Clean Catch Urine Culture - Final NO GROWTH AFTER 48 HOURS Complete 08/19/17 07:00 Buttock Left Gram Stain - Final Complete 08/19/17 07:00 Wound Culture - Final Staphylococcus Sp Coag Neg Diphtheroids Complete Laboratory Tests Test 08/29/17 04:40 White Blood Count 5.3 K/UL (4.8-10.8) # Red Blood Count 2.53 M/UL (4.20-5.40) L Hemoglobin 8.4 G/DL (12.0-16.0) L Hematocrit 25.8 % (37.0-47.0) L Mean Corpuscular Volume 102 FL (80-99) H Mean Corpuscular Hemoglobin 33.1 PG (27.0-31.0) H Mean Corpuscular Hemoglobin Concent 32.5 G/DL (32.0-36.0) Red Cell Distribution Width 16.1 % (11.6-14.8) H Platelet Count 108 K/UL (150-450) L Mean Platelet Volume 7.8 FL (6.5-10.1) Neutrophils (%) (Auto) 80.7 % (45.0-75.0) H Lymphocytes (%) (Auto) 10.1 % (20.0-45.0) L Monocytes (%) (Auto) 6.5 % (1.0-10.0) Eosinophils (%) (Auto) 1.2 % (0.0-3.0) Basophils (%) (Auto) 1.5 % (0.0-2.0) Current Medications Medications (Trade) Dose Ordered Sig/Adonay Route PRN Reason Start Time Stop Time Status Last Admin Dose Admin Acetaminophen (Tylenol) 650 mg Q6H PRN ORAL Mild Pain/Temp > 100.5 08/21/17 20:00 09/18/17 07:59 08/29/17 09:42 Amlodipine Besylate (Norvasc) 10 mg DAILY NG 08/23/17 09:00 09/22/17 08:59 08/29/17 09:44 Ascorbic Acid (Vitamin C) 500 mg DAILY NG 08/23/17 09:00 09/22/17 08:59 08/29/17 09:43 Baclofen (Lioresal) 10 mg THREE TIMES A DAY NG 08/23/17 09:00 09/22/17 08:59 08/29/17 17:59 Citalopram Hydrobromide (celeXA) 20 mg DAILY GT 08/27/17 09:00 09/18/17 08:59 08/29/17 09:43 Clonidine HCl (Catapres) 0.1 mg Q6H PRN NG SBP > 160mmHg 08/23/17 08:30 09/22/17 08:29 Dextrose (Dextrose 50%) STAT PRN IV Hypoglycemia 08/21/17 20:00 09/20/17 19:59 08/28/17 09:30 Ferrous Sulfate (Feosol) 300 mg DAILY NG 08/27/17 09:00 09/26/17 08:59 08/29/17 09:43 Insulin Aspart (NovoLOG) EVERY 4 HOURS SUBQ 08/21/17 21:00 09/19/17 08:59 08/29/17 13:02 Insulin Detemir (Levemir) 7 units Q12HR SUBQ 08/27/17 21:00 09/26/17 20:59 08/29/17 09:39 Lansoprazole (Prevacid) 30 mg DAILY NG 08/24/17 09:00 09/23/17 08:59 08/29/17 09:43 Levothyroxine Sodium (Synthroid) 75 mcg ACBREAKFAST NG 08/24/17 06:30 09/23/17 06:29 08/29/17 05:30 Lorazepam (Ativan) 0.5 mg Q8H PRN NG For Anxiety 08/23/17 12:00 08/30/17 11:59 08/29/17 09:43 Losartan Potassium (Cozaar) 50 mg DAILY NG 08/23/17 09:00 09/22/17 08:59 08/29/17 09:45 Metronidazole (Flagyl) 500 mg EVERY 8 HOURS ORAL 08/28/17 22:00 09/04/17 21:59 08/29/17 14:12 Multivitamins (Multivitamins) 1 tab DAILY ORAL 08/22/17 09:00 09/18/17 08:59 08/29/17 09:45 Ondansetron HCl (Zofran) 4 mg Q6H PRN NG Nausea & Vomiting 08/26/17 15:30 09/18/17 07:59 Oxycodone/ Acetaminophen (Percocet 5-325) 1 tab Q6H PRN ORAL for severe breakthrough pain 08/26/17 15:30 09/02/17 10:44 08/28/17 20:45 Piperacillin Sod/ Tazobactam Sod 3.375 gm/Dextrose 100 ml @ 25 mls/hr EVERY 8 HOURS IVPB 08/28/17 22:00 09/02/17 21:59 08/29/17 14:08 Potassium Chloride (KCl 10% 40mEq Oral solution) 40 meq TWICE A DAY NG 08/24/17 18:00 09/23/17 17:59 08/29/17 17:59 Vancomycin HCl (Vanco rx to dose) 1 ea DAILY PRN MISC Per rx protocol 08/28/17 16:15 09/27/17 16:14 Vancomycin/Sodium Chloride 250 ml @ 166.667 mls/hr Q24H IVPB 08/29/17 18:00 09/03/17 17:59 08/29/17 18:00 YASIR RUEDA Aug 29, 2017 21:19
[2017-08-30] VITALS: BP 138/64
[2017-08-30] MEDS: oxyCODONE HCL/Acetaminophen 5/325mg ORAL PRN ×2 (01:17→15:15)
[2017-08-30] MEDS: NovoLOG Insulin Flexpen SUBQ SCH ×6 (01:17→21:49)
[2017-08-30 04:00] VITALS: BP 133/62
[2017-08-30 04:45] LABS: HEMATOCRIT 25.8 % (37.0-47.0); HEMOGLOBIN 8.6 G/DL (12.0-16.0); MEAN CORPUSCULAR VOLUME 98 FL (80-99); PLATELET COUNT 156 K/UL (150-450); RED BLOOD COUNT 2.64 M/UL (4.20-5.40); RED CELL DISTRIBUTION WIDTH 16.8 % (11.6-14.8); WHITE BLOOD COUNT 11.3 K/UL (4.8-10.8)
[2017-08-30 05:18] LABS: ANION GAP 10 (5-15); BLOOD UREA NITROGEN 24 mg/dL (7-18); CARBON DIOXIDE 26 MMOL/L (21-32); CHLORIDE 114 MMOL/L (98-107); CREATININE 0.9 MG/DL (0.55-1.30); POTASSIUM 3.7 MMOL/L (3.5-5.1); SODIUM 150 MMOL/L (136-145)
[2017-08-30 06:04] LABS: CALCIUM 7.4 MG/DL (8.5-10.1)
[2017-08-30] MEDS: metroNIDAZOLE 500mg tab ORAL SCH ×3 (06:15→21:51)
[2017-08-30 08:00] VITALS: BP 103/74
[2017-08-30] MEDS ORDERED: D5 1/2NS 1000ml IV ONE (08:00)
[2017-08-30] MEDS ORDERED: NS 275ml ONE ×2 (08:00)
[2017-08-30] MEDS: Ascorbic Acid 500mg tab NG SCH (09:33)
[2017-08-30] MEDS: Losartan 50mg tab NG SCH (09:34)
[2017-08-30] MEDS: Citalopram Hydrobromide 10mg Tab GT SCH (09:34)
[2017-08-30] MEDS: KCl 10% 40mEq/30ml liquid NG SCH ×2 (09:35→18:14)
[2017-08-30] MEDS: Ferrous Sulfate 300 MG/5 ML UDC NG SCH (09:35)
--- NOTE | 2017-08-30 11:54 | Consultation ---
History of Present Illness General Chief Complaint: Altered Level of Consciousness Present Illness HPI the pt is 67 aa f with mmp the pt is having anxiety and agitation. talking to self waxing and waning of consciousness Allergies: Coded Allergies: No Known Allergies (Unverified , 08/18/17) Medication History Scheduled Alendronate Sodium* (Fosamax*), 70 MG ORAL ONCE A WEEK, (Reported) Amlodipine Besylate* (Amlodipine Besylate*), 10 MG ORAL DAILY, (Reported) Ascorbic Acid* (Vitamin C*), 500 MG ORAL DAILY, (Reported) Baclofen* (Baclofen*), 10 MG ORAL THREE TIMES A DAY, (Reported) Citalopram Hydrobromide* (Celexa*), 20 MG ORAL DAILY, (Reported) Ferrous Sulfate* (Ferrous Sulfate*), 325 MG ORAL DAILY, (Reported) Heparin Sod (Porcine) (Heparin Sodium*), 5,000 UNITS SUBQ EVERY 12 HOURS, ( Reported) Insulin Detemir (Levemir), 0 SUBQ BEDTIME, (Reported) Levothyroxine Sodium* (Levothyroxine Sodium*), 75 MCG ORAL DAILY, (Reported) Losartan Potassium* (Losartan Potassium*), 50 MG ORAL DAILY, (Reported) Magnesium Oxide (Magnesium), 400 MG PO BID, (Reported) Morphine Sulfate* (Ms Contin*), 15 MG ORAL EVERY 12 HOURS, (Reported) Multivitamins* (Multivitamins*), 1 TAB ORAL DAILY, (Reported) Pantoprazole* (Protonix*), 40 MG ORAL DAILY, (Reported) Scheduled PRN Acetaminophen* (Tylenol Extra Strength*), 650 MG ORAL Q6H PRN for Mild Pain/ Temp > 100.5, (Reported) Clonidine Hcl* (Catapres*), 0.1 MG ORAL EVERY 6 HOURS PRN for For High Blood Pressure, (Reported) Hydralazine HCl (Hydralazine HCl), 25 MG PO Q8HR PRN for For High Blood Pressure , (Reported) Lorazepam* (Ativan*), 0.5 MG ORAL THREE TIMES A DAY PRN for For Anxiety, ( Reported) Ondansetron* (Zofran*), 4 MG ORAL Q6H PRN for Nausea & Vomiting, (Reported) Oxycodone/Acetaminophen 5-325* (Percocet 5-325 Mg Tablet*), 1 TAB ORAL Q6H PRN for For Pain, (Reported) Miscellaneous Medications Calcium Carbonate (Calcium), 500 MG PO, (Reported) Insulin Human Lispro (Humalog), 0 SUBQ, (Reported) Nutritional Supplement (Nutren), 1,000 ML PO, (Reported) Patient History History Provided By: Patient, Medical Record Healthcare decision maker TAMMY PERES Resuscitation status Full Code Advanced Directive on File No Past Medical/Surgical History Past Medical/Surgical History: (1) Altered level of consciousness (2) Hyperglycemia (3) Dysphagia (4) Renal insufficiency (5) Rhabdomyolysis (6) Diabetes mellitus out of control (7) Sacral fracture (8) Altered mental status, unspecified (9) Hyperkalemia (10) DKA (diabetic ketoacidoses) (11) Sepsis (12) Hypothyroidism Review of Systems Psychiatric: Reports: see HPI, prior hx, anxiety, depressed feelings, emotional problems Physical Exam General Appearance: moderate distress, agitated Neurologic: alert, responsive, depressed affect Last 24 Hour Vital Signs Date Time Temp Pulse Resp B/P (MAP) Pulse Ox O2 Delivery O2 Flow Rate FiO2 08/30/17 09:34 103/74 08/30/17 08:00 97.7 77 17 103/74 100 Non-Rebreather 100 08/30/17 04:00 99.0 82 18 133/62 99 Non-Rebreather 100 08/30/17 03:48 87 08/30/17 00:00 97.0 112 28 138/64 95 Non-Rebreather 100 08/30/17 00:00 98.4 96 26 138/64 98 Non-Rebreather 100 08/29/17 23:55 93 08/29/17 20:00 99.3 92 28 128/64 96 Non-Rebreather 100 08/29/17 20:00 83 08/29/17 19:00 Non-Rebreather 12.0 50 08/29/17 19:00 99 Non-Rebreather 15.0 100 08/29/17 16:00 98.8 85 20 115/62 98 Non-Rebreather 100 08/29/17 16:00 88 08/29/17 12:00 98.1 78 22 115/64 97 Non-Rebreather 100 08/29/17 12:00 80 Laboratory Tests Test 08/30/17 04:00 White Blood Count 11.3 K/UL (4.8-10.8) #H Red Blood Count 2.64 M/UL (4.20-5.40) L Hemoglobin 8.6 G/DL (12.0-16.0) L Hematocrit 25.8 % (37.0-47.0) L Mean Corpuscular Volume 98 FL (80-99) Mean Corpuscular Hemoglobin 32.8 PG (27.0-31.0) H Mean Corpuscular Hemoglobin Concent 33.5 G/DL (32.0-36.0) Red Cell Distribution Width 16.8 % (11.6-14.8) H Platelet Count 156 K/UL (150-450) Mean Platelet Volume 9.2 FL (6.5-10.1) Neutrophils (%) (Auto) % (45.0-75.0) Lymphocytes (%) (Auto) % (20.0-45.0) Monocytes (%) (Auto) % (1.0-10.0) Eosinophils (%) (Auto) % (0.0-3.0) Basophils (%) (Auto) % (0.0-2.0) Differential Total Cells Counted 100 Neutrophils % (Manual) 91 % (45-75) H Lymphocytes % (Manual) 5 % (20-45) L Monocytes % (Manual) 3 % (1-10) Eosinophils % (Manual) 1 % (0-3) Basophils % (Manual) 0 % (0-2) Band Neutrophils 0 % (0-8) Platelet Estimate Adequate Platelet Morphology Normal Hypochromasia 1+ Anisocytosis 1+ Sodium Level 150 MMOL/L (136-145) H Potassium Level 3.7 MMOL/L (3.5-5.1) Chloride Level 114 MMOL/L (98-107) H Carbon Dioxide Level 26 MMOL/L (21-32) Anion Gap 10 (5-15) Blood Urea Nitrogen 24 mg/dL (7-18) H Creatinine 0.9 MG/DL (0.55-1.30) Estimat Glomerular Filtration Rate > 60 mL/min (>60) Glucose Level 258 MG/DL (74-106) H Calcium Level 7.4 MG/DL (8.5-10.1) L Height (Feet): 5 Height (Inches): 3.00 Weight (Pounds): 110 Medications Current Medications Medications (Trade) Dose Ordered Sig/Adonay Route PRN Reason Start Time Stop Time Status Last Admin Dose Admin Acetaminophen (Tylenol) 650 mg Q6H PRN ORAL Mild Pain/Temp > 100.5 08/21/17 20:00 09/18/17 07:59 08/29/17 09:42 Amlodipine Besylate (Norvasc) 10 mg DAILY NG 08/23/17 09:00 09/22/17 08:59 08/29/17 09:44 Ascorbic Acid (Vitamin C) 500 mg DAILY NG 08/23/17 09:00 09/22/17 08:59 08/30/17 09:33 Baclofen (Lioresal) 10 mg THREE TIMES A DAY NG 08/23/17 09:00 09/22/17 08:59 08/30/17 09:34 Citalopram Hydrobromide (celeXA) 20 mg DAILY GT 08/27/17 09:00 09/18/17 08:59 08/30/17 09:34 Clonidine HCl (Catapres) 0.1 mg Q6H PRN NG SBP > 160mmHg 08/23/17 08:30 09/22/17 08:29 Dextrose (Dextrose 50%) STAT PRN IV Hypoglycemia 08/21/17 20:00 09/20/17 19:59 08/28/17 09:30 Ferrous Sulfate (Feosol) 300 mg DAILY NG 08/27/17 09:00 09/26/17 08:59 08/30/17 09:35 Insulin Aspart (NovoLOG) EVERY 4 HOURS SUBQ 08/21/17 21:00 09/19/17 08:59 08/30/17 05:11 Insulin Detemir (Levemir) 7 units Q12HR SUBQ 08/27/17 21:00 09/26/17 20:59 08/29/17 22:14 Lansoprazole (Prevacid) 30 mg DAILY NG 08/24/17 09:00 09/23/17 08:59 08/30/17 09:34 Levothyroxine Sodium (Synthroid) 75 mcg ACBREAKFAST NG 08/24/17 06:30 09/23/17 06:29 08/30/17 06:16 Lorazepam (Ativan) 0.5 mg Q8H PRN NG For Anxiety 08/23/17 12:00 08/30/17 11:59 08/29/17 09:43 Losartan Potassium (Cozaar) 50 mg DAILY NG 08/23/17 09:00 09/22/17 08:59 08/30/17 09:34 Metronidazole (Flagyl) 500 mg EVERY 8 HOURS ORAL 08/28/17 22:00 09/04/17 21:59 08/30/17 06:15 Multivitamins (Multivitamins) 1 tab DAILY ORAL 08/22/17 09:00 09/18/17 08:59 08/30/17 09:49 Ondansetron HCl (Zofran) 4 mg Q6H PRN NG Nausea & Vomiting 08/26/17 15:30 09/18/17 07:59 Oxycodone/ Acetaminophen (Percocet 5-325) 1 tab Q6H PRN ORAL for severe breakthrough pain 08/26/17 15:30 09/02/17 10:44 08/30/17 01:17 Piperacillin Sod/ Tazobactam Sod 3.375 gm/Dextrose 100 ml @ 25 mls/hr EVERY 8 HOURS IVPB 08/28/17 22:00 09/02/17 21:59 08/30/17 05:11 Potassium Chloride (KCl 10% 40mEq Oral solution) 40 meq TWICE A DAY NG 08/24/17 18:00 09/23/17 17:59 08/30/17 09:35 Vancomycin HCl (Vanco rx to dose) 1 ea DAILY PRN MISC Per rx protocol 08/28/17 16:15 09/27/17 16:14 Vancomycin/Sodium Chloride 250 ml @ 166.667 mls/hr Q24H IVPB 08/29/17 18:00 09/03/17 17:59 08/29/17 18:00 Assessment/Plan Status: stable Assessment/Plan encephalopathy agitation -seroquel 12.5 mg bid Audi Bonilla M.D. Aug 30, 2017 11:54
[2017-08-30 12:00] VITALS: BP 117/67
[2017-08-30] MEDS: Levemir Flexpen SUBQ SCH (12:17)
--- NOTE | 2017-08-30 12:47 | Pulmonology Progress Note ---
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 Subjective ROS Limited/Unobtainable: Yes Allergies: Coded Allergies: No Known Allergies (Unverified , 08/18/17) Objective Last 24 Hour Vital Signs Date Time Temp Pulse Resp B/P (MAP) Pulse Ox O2 Delivery O2 Flow Rate FiO2 08/30/17 09:34 103/74 08/30/17 08:00 97.7 77 17 103/74 100 Non-Rebreather 100 08/30/17 04:00 99.0 82 18 133/62 99 Non-Rebreather 100 08/30/17 03:48 87 08/30/17 00:00 97.0 112 28 138/64 95 Non-Rebreather 100 08/30/17 00:00 98.4 96 26 138/64 98 Non-Rebreather 100 08/29/17 23:55 93 08/29/17 20:00 99.3 92 28 128/64 96 Non-Rebreather 100 08/29/17 20:00 83 08/29/17 19:00 Non-Rebreather 12.0 50 08/29/17 19:00 99 Non-Rebreather 15.0 100 08/29/17 16:00 98.8 85 20 115/62 98 Non-Rebreather 100 08/29/17 16:00 88 General Appearance: no acute distress HEENT: normocephalic Respiratory/Chest: lungs clear Cardiovascular: normal rate Laboratory Tests 08/30/17 04:00: White Blood Count 11.3#H, Red Blood Count 2.64L, Hemoglobin 8.6L, Hematocrit 25.8L, Mean Corpuscular Volume 98, Mean Corpuscular Hemoglobin 32.8H, Mean Corpuscular Hemoglobin Concent 33.5, Red Cell Distribution Width 16.8H, Platelet Count 156, Mean Platelet Volume 9.2, Neutrophils (%) (Auto) , Lymphocytes (%) (Auto) , Monocytes (%) (Auto) , Eosinophils (%) (Auto) , Basophils (%) (Auto) , Differential Total Cells Counted 100, Neutrophils % ( Manual) 91H, Lymphocytes % (Manual) 5L, Monocytes % (Manual) 3, Eosinophils % ( Manual) 1, Basophils % (Manual) 0, Band Neutrophils 0, Platelet Estimate Adequate, Platelet Morphology Normal, Hypochromasia 1+, Anisocytosis 1+, Sodium Level 150H, Potassium Level 3.7, Chloride Level 114H, Carbon Dioxide Level 26, Anion Gap 10, Blood Urea Nitrogen 24H, Creatinine 0.9, Estimat Glomerular Filtration Rate > 60, Glucose Level 258H, Calcium Level 7.4L Current Medications Medications (Trade) Dose Ordered Sig/Adonay Route PRN Reason Start Time Stop Time Status Last Admin Dose Admin Acetaminophen (Tylenol) 650 mg Q6H PRN ORAL Mild Pain/Temp > 100.5 08/21/17 20:00 09/18/17 07:59 08/29/17 09:42 Amlodipine Besylate (Norvasc) 10 mg DAILY NG 08/23/17 09:00 09/22/17 08:59 08/29/17 09:44 Ascorbic Acid (Vitamin C) 500 mg DAILY NG 08/23/17 09:00 09/22/17 08:59 08/30/17 09:33 Baclofen (Lioresal) 10 mg THREE TIMES A DAY NG 08/23/17 09:00 09/22/17 08:59 08/30/17 09:34 Citalopram Hydrobromide (celeXA) 20 mg DAILY GT 08/27/17 09:00 09/18/17 08:59 08/30/17 09:34 Clonidine HCl (Catapres) 0.1 mg Q6H PRN NG SBP > 160mmHg 08/23/17 08:30 09/22/17 08:29 Dextrose (Dextrose 50%) STAT PRN IV Hypoglycemia 08/21/17 20:00 09/20/17 19:59 08/28/17 09:30 Ferrous Sulfate (Feosol) 300 mg DAILY NG 08/27/17 09:00 09/26/17 08:59 08/30/17 09:35 Insulin Aspart (NovoLOG) EVERY 4 HOURS SUBQ 08/21/17 21:00 09/19/17 08:59 08/30/17 12:17 Insulin Detemir (Levemir) 7 units Q12HR SUBQ 08/27/17 21:00 09/26/17 20:59 08/30/17 12:17 Lansoprazole (Prevacid) 30 mg DAILY NG 08/24/17 09:00 09/23/17 08:59 08/30/17 09:34 Levothyroxine Sodium (Synthroid) 75 mcg ACBREAKFAST NG 08/24/17 06:30 09/23/17 06:29 08/30/17 06:16 Losartan Potassium (Cozaar) 50 mg DAILY NG 08/23/17 09:00 09/22/17 08:59 08/30/17 09:34 Metronidazole (Flagyl) 500 mg EVERY 8 HOURS ORAL 08/28/17 22:00 09/04/17 21:59 08/30/17 06:15 Multivitamins (Multivitamins) 1 tab DAILY ORAL 08/22/17 09:00 09/18/17 08:59 08/30/17 09:49 Ondansetron HCl (Zofran) 4 mg Q6H PRN NG Nausea & Vomiting 08/26/17 15:30 09/18/17 07:59 Oxycodone/ Acetaminophen (Percocet 5-325) 1 tab Q6H PRN ORAL for severe breakthrough pain 08/26/17 15:30 09/02/17 10:44 08/30/17 01:17 Piperacillin Sod/ Tazobactam Sod 3.375 gm/Dextrose 100 ml @ 25 mls/hr EVERY 8 HOURS IVPB 08/28/17 22:00 09/02/17 21:59 08/30/17 05:11 Potassium Chloride (KCl 10% 40mEq Oral solution) 40 meq TWICE A DAY NG 08/24/17 18:00 09/23/17 17:59 08/30/17 09:35 Quetiapine Fumarate (SEROquel) 12.5 mg Q12H PRN ORAL Agitation 08/30/17 11:45 09/29/17 11:44 Vancomycin HCl (Vanco rx to dose) 1 ea DAILY PRN MISC Per rx protocol 08/28/17 16:15 09/27/17 16:14 Vancomycin/Sodium Chloride 250 ml @ 166.667 mls/hr Q24H IVPB 08/29/17 18:00 10/15/17 17:59 08/29/17 18:00 PATRICIA LUGO Aug 30, 2017 12:46
[2017-08-30 16:00] VITALS: BP 129/60
--- NOTE | 2017-08-30 18:16 | Progress Note ---
SUBJECTIVE: The patient is still anxious. The patient has been presenting with episodes of confusion. During the evaluation, she was able to follow commands and answer simple questions. MENTAL STATUS EXAMINATION: The patient is alert and oriented times self, place, and situation she is in. Her mood was anxious. Affect was constricted. Congruent with mood. Thought process is concrete. Thought content, no suicidal or homicidal ideation. Cognition is impaired. ASSESSMENT: Encephalopathy due to multiple medical problems, cognitive impairment, and anxiety. PLAN: 1. We will start the patient on Seroquel p.r.n. 2. Provide the patient with supportive therapy and reality orientation. Audi Bonilla M.D. DR: NATAN JOB#: [id number] CC:
[2017-08-30] MEDS: Vancomycin 750mg/NS 250ml IVPB SCH (18:17)
--- NOTE | 2017-08-30 19:15 | Infectious Diseases Prog Note ---
Assessment/Plan Assessment/Plan ASSESSMENT AND PLAN: 1. sepsis, klebsiella uti, possible pna, leukocytosis and fevers, ? c.diff. - clinically more alert - leukocytosis and fevers better - continue zosyn, vancomycin and flaygl for now - check sc, labs, chest x-ray, check c.diff. if has diarrhea 2. The patient has history of diabetes. 3. Hypertension. 4. Anemia. 5. Respiratory insufficiency. 6. Blood sugar and blood pressure control per primary. 7. Diabetic ketoacidosis. 8. History of anxiety. 9. Depression. 10. Dementia. 11. Chronic pain syndrome. 12. Aspiration risk. 13. Altered mental status. 14. Poor historian. 15. No known allergies. 16. Social history is negative. 17. Family history is noncontributory. 18. MAR was noted. 19. Case was discussed with RN. 20. Notes and records were noted. 21. Skin care protocol. 22. I have reviewed the wounds. I do not think this is her source of sepsis. Continue local wound care protocol. wc - likely colonizer. 23. Continue treatment per Dr. Winn. Subjective Constitutional: Reports: fatigue, other - more alert, on bm, Denies: fever HEENT: Reports: congestion Respiratory: Reports: shortness of breath Cardiovascular: Reports: chest pain Gastrointestinal/Abdominal: Reports: nausea, diarrhea Genitourinary: Reports: other - + rowe Neurologic: Denies: headache Psychiatric: Denies: depression Skin: Denies: rash Hematologic: Denies: bleeding Musculoskeletal: Denies: pain Allergies: Coded Allergies: No Known Allergies (Unverified , 08/18/17) Objective Vital Signs Last 24 Hour Vital Signs Date Time Temp Pulse Resp B/P (MAP) Pulse Ox O2 Delivery O2 Flow Rate FiO2 08/30/17 17:18 90 08/30/17 16:00 97.3 96 19 129/60 100 Non-Rebreather 100 08/30/17 15:16 109 117/67 08/30/17 12:44 109 08/30/17 12:00 98.4 85 18 117/67 100 Non-Rebreather 100 08/30/17 09:34 103/74 08/30/17 08:00 97.7 77 17 103/74 100 Non-Rebreather 100 08/30/17 04:00 99.0 82 18 133/62 99 Non-Rebreather 100 08/30/17 03:48 87 08/30/17 00:00 97.0 112 28 138/64 95 Non-Rebreather 100 08/30/17 00:00 98.4 96 26 138/64 98 Non-Rebreather 100 08/29/17 23:55 93 08/29/17 20:00 99.3 92 28 128/64 96 Non-Rebreather 100 08/29/17 20:00 83 Height (Feet): 5 Height (Inches): 3.00 Weight (Pounds): 110 General Appearance: no acute distress HEENT: normocephalic, atraumatic, anicteric, mucous membranes moist, EOMI, pharynx normal, supple, no JVD Respiratory/Chest: crackles/rales, rhonchi - bilaterally Cardiovascular: normal rate, regular rhythm, no gallop/murmur, no JVD Abdomen: normal bowel sounds, soft, non tender, no organomegaly, non distended Genitourinary: other - + rowe - urine slt cloudy Extremities: no cyanosis Skin: no rash 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 The pleural spaces are clear. The heart size is normal. There is a nasogastric tube again demonstrated. Left shoulder hardware is again demonstrated Impression: Unchanged, over one day, findings as above. Microbiology Date/Time Source Procedure Growth Status 08/26/17 03:55 Blood Blood Culture - Preliminary NO GROWTH AFTER 4 DAYS Resulted 08/18/17 21:45 Nasal Nares MRSA Culture - Final NO METHICILLIN RESISTANT STAPH AUREUS... Complete 08/25/17 15:30 Urine,Clean Catch Urine Culture - Final NO GROWTH AFTER 48 HOURS Complete 08/19/17 07:00 Buttock Left Gram Stain - Final Complete 08/19/17 07:00 Wound Culture - Final Staphylococcus Sp Coag Neg Diphtheroids Complete Laboratory Tests Test 08/30/17 04:00 White Blood Count 11.3 K/UL (4.8-10.8) #H Red Blood Count 2.64 M/UL (4.20-5.40) L Hemoglobin 8.6 G/DL (12.0-16.0) L Hematocrit 25.8 % (37.0-47.0) L Mean Corpuscular Volume 98 FL (80-99) Mean Corpuscular Hemoglobin 32.8 PG (27.0-31.0) H Mean Corpuscular Hemoglobin Concent 33.5 G/DL (32.0-36.0) Red Cell Distribution Width 16.8 % (11.6-14.8) H Platelet Count 156 K/UL (150-450) Mean Platelet Volume 9.2 FL (6.5-10.1) Neutrophils (%) (Auto) % (45.0-75.0) Lymphocytes (%) (Auto) % (20.0-45.0) Monocytes (%) (Auto) % (1.0-10.0) Eosinophils (%) (Auto) % (0.0-3.0) Basophils (%) (Auto) % (0.0-2.0) Differential Total Cells Counted 100 Neutrophils % (Manual) 91 % (45-75) H Lymphocytes % (Manual) 5 % (20-45) L Monocytes % (Manual) 3 % (1-10) Eosinophils % (Manual) 1 % (0-3) Basophils % (Manual) 0 % (0-2) Band Neutrophils 0 % (0-8) Platelet Estimate Adequate Platelet Morphology Normal Hypochromasia 1+ Anisocytosis 1+ Sodium Level 150 MMOL/L (136-145) H Potassium Level 3.7 MMOL/L (3.5-5.1) Chloride Level 114 MMOL/L (98-107) H Carbon Dioxide Level 26 MMOL/L (21-32) Anion Gap 10 (5-15) Blood Urea Nitrogen 24 mg/dL (7-18) H Creatinine 0.9 MG/DL (0.55-1.30) Estimat Glomerular Filtration Rate > 60 mL/min (>60) Glucose Level 258 MG/DL (74-106) H Calcium Level 7.4 MG/DL (8.5-10.1) L Current Medications Medications (Trade) Dose Ordered Sig/Adonay Route PRN Reason Start Time Stop Time Status Last Admin Dose Admin Acetaminophen (Tylenol) 650 mg Q6H PRN ORAL Mild Pain/Temp > 100.5 10/2/17 20:00 09/18/17 07:59 08/29/17 09:42 Amlodipine Besylate (Norvasc) 10 mg DAILY NG 08/23/17 09:00 09/22/17 08:59 08/30/17 15:16 Ascorbic Acid (Vitamin C) 500 mg DAILY NG 08/23/17 09:00 09/22/17 08:59 08/30/17 09:33 Baclofen (Lioresal) 10 mg THREE TIMES A DAY NG 08/23/17 09:00 09/22/17 08:59 08/30/17 18:16 Citalopram Hydrobromide (celeXA) 20 mg DAILY GT 08/27/17 09:00 09/18/17 08:59 08/30/17 09:34 Clonidine HCl (Catapres) 0.1 mg Q6H PRN NG SBP > 160mmHg 08/23/17 08:30 09/22/17 08:29 Dextrose (Dextrose 50%) STAT PRN IV Hypoglycemia 08/21/17 20:00 09/20/17 19:59 08/28/17 09:30 Ferrous Sulfate (Feosol) 300 mg DAILY NG 08/27/17 09:00 09/26/17 08:59 08/30/17 09:35 Insulin Aspart (NovoLOG) EVERY 4 HOURS SUBQ 08/21/17 21:00 09/19/17 08:59 08/30/17 18:19 Insulin Detemir (Levemir) 7 units Q12HR SUBQ 08/27/17 21:00 09/26/17 20:59 08/30/17 12:17 Lansoprazole (Prevacid) 30 mg DAILY NG 08/24/17 09:00 09/23/17 08:59 08/30/17 09:34 Levothyroxine Sodium (Synthroid) 75 mcg ACBREAKFAST NG 08/24/17 06:30 09/23/17 06:29 08/30/17 06:16 Losartan Potassium (Cozaar) 50 mg DAILY NG 08/23/17 09:00 09/22/17 08:59 08/30/17 09:34 Metronidazole (Flagyl) 500 mg EVERY 8 HOURS ORAL 08/28/17 22:00 09/04/17 21:59 08/30/17 15:15 Multivitamins (Multivitamins) 1 tab DAILY ORAL 08/22/17 09:00 09/18/17 08:59 08/30/17 09:49 Ondansetron HCl (Zofran) 4 mg Q6H PRN NG Nausea & Vomiting 08/26/17 15:30 09/18/17 07:59 Oxycodone/ Acetaminophen (Percocet 5-325) 1 tab Q6H PRN ORAL for severe breakthrough pain 08/26/17 15:30 09/02/17 10:44 08/30/17 15:15 Piperacillin Sod/ Tazobactam Sod 3.375 gm/Dextrose 100 ml @ 25 mls/hr EVERY 8 HOURS IVPB 08/28/17 22:00 09/02/17 21:59 08/30/17 15:16 Potassium Chloride (KCl 10% 40mEq Oral solution) 40 meq TWICE A DAY NG 08/24/17 18:00 09/23/17 17:59 08/30/17 18:14 Quetiapine Fumarate (SEROquel) 12.5 mg Q12H PRN ORAL Agitation 08/30/17 11:45 09/29/17 11:44 Vancomycin HCl (Vanco rx to dose) 1 ea DAILY PRN MISC Per rx protocol 08/28/17 16:15 09/27/17 16:14 Vancomycin/Sodium Chloride 250 ml @ 166.667 mls/hr Q24H IVPB 08/29/17 18:00 09/03/17 17:59 08/30/17 18:17 YASIR RUEDA Aug 30, 2017 19:14
[2017-08-30 20:00] VITALS: BP 127/61
--- NOTE | 2017-08-30 21:47 | General Progress Note ---
Assessment/Plan Assessment/Plan Assessment - Respiratory failure - improved - leukocytosis - improved - UTI - Anemia - free water deficit / hypernatremia - improved Recommendations - abx - optimize resp status - NGT feeds - PEG in am - Can target d/c to [facility] Monday Subjective Allergies: Coded Allergies: No Known Allergies (Unverified , 08/18/17) Subjective Above noted Breathing better periodically agitated No chem today Objective Last 24 Hour Vital Signs Date Time Temp Pulse Resp B/P (MAP) Pulse Ox O2 Delivery O2 Flow Rate FiO2 08/30/17 17:18 90 08/30/17 16:00 97.3 96 19 129/60 100 Non-Rebreather 100 08/30/17 15:16 109 117/67 08/30/17 12:44 109 08/30/17 12:00 98.4 85 18 117/67 100 Non-Rebreather 100 08/30/17 09:34 103/74 08/30/17 08:00 97.7 77 17 103/74 100 Non-Rebreather 100 08/30/17 04:00 99.0 82 18 133/62 99 Non-Rebreather 100 08/30/17 03:48 87 08/30/17 00:00 97.0 112 28 138/64 95 Non-Rebreather 100 08/30/17 00:00 98.4 96 26 138/64 98 Non-Rebreather 100 08/29/17 23:55 93 Intake and Output 08/30/17 08/31/17 19:00 07:00 Intake Total 605 ml Output Total 500 ml Balance 105 ml Tube Feeding 605 ml Output Urine Total 500 ml # Bowel Movements 1 Laboratory Tests 08/30/17 04:00: White Blood Count 11.3#H, Red Blood Count 2.64L, Hemoglobin 8.6L, Hematocrit 25.8L, Mean Corpuscular Volume 98, Mean Corpuscular Hemoglobin 32.8H, Mean Corpuscular Hemoglobin Concent 33.5, Red Cell Distribution Width 16.8H, Platelet Count 156, Mean Platelet Volume 9.2, Neutrophils (%) (Auto) , Lymphocytes (%) (Auto) , Monocytes (%) (Auto) , Eosinophils (%) (Auto) , Basophils (%) (Auto) , Differential Total Cells Counted 100, Neutrophils % ( Manual) 91H, Lymphocytes % (Manual) 5L, Monocytes % (Manual) 3, Eosinophils % ( Manual) 1, Basophils % (Manual) 0, Band Neutrophils 0, Platelet Estimate Adequate, Platelet Morphology Normal, Hypochromasia 1+, Anisocytosis 1+, Sodium Level 150H, Potassium Level 3.7, Chloride Level 114H, Carbon Dioxide Level 26, Anion Gap 10, Blood Urea Nitrogen 24H, Creatinine 0.9, Estimat Glomerular Filtration Rate > 60, Glucose Level 258H, Calcium Level 7.4L Height (Feet): 5 Height (Inches): 3.00 Weight (Pounds): 110 Objective Thin AA woman NCAT (+) NGT and face mask O2 Neck supple Chest: b/l kassy RRR soft ND NT no edema ERIKA ESPINOSA Aug 30, 2017 21:46
[2017-08-31] VITALS: BP_SYST 131; BP_SYST 71; BP_DIAS 61; BP_DIAS 71
[2017-08-31] MEDS: oxyCODONE HCL/Acetaminophen 5/325mg ORAL PRN ×2 (00:58→10:35)
[2017-08-31] MEDS: NovoLOG Insulin Flexpen SUBQ SCH ×6 (01:03→21:37)
[2017-08-31] MEDS ORDERED: D5 1/2NS 1,000 ML IV SCH (02:15)
[2017-08-31 03:24] VITALS: BP 137/74
[2017-08-31] MEDS: Acetaminophen 500mg (ES) tab ORAL PRN (04:10)
[2017-08-31] MEDS: metroNIDAZOLE 500mg tab ORAL SCH ×3 (05:33→21:42)
[2017-08-31 07:07] LABS: BASOPHILS % (AUTO) 0.3 % (0.0-2.0); EOSINOPHILS % (AUTO) 1.4 % (0.0-3.0); HEMATOCRIT 26.7 % (37.0-47.0); HEMOGLOBIN 8.4 G/DL (12.0-16.0); LYMPHOCYTES % (AUTO) 12.3 % (20.0-45.0); MEAN CORPUSCULAR VOLUME 100 FL (80-99); MONOCYTES % (AUTO) 4.5 % (1.0-10.0); NEUTROPHILS % (AUTO) 81.5 % (45.0-75.0); PLATELET COUNT 156 K/UL (150-450); RED BLOOD COUNT 2.68 M/UL (4.20-5.40); RED CELL DISTRIBUTION WIDTH 16.5 % (11.6-14.8); WHITE BLOOD COUNT 12.2 K/UL (4.8-10.8)
--- NOTE | 2017-08-31 07:40 | Anethesia Preoperative Eval ---
Anesthesia Pre-op PMH/ROS General Date of Evaluation: Aug 31, 2017 Time of Evaluation: 07:35 Anesthesiologist: frankie ASA Score: ASA 3 Mallampati Score Class I : Soft palate, uvula, fauces, pillars visible Class II: Soft palate, uvula, fauces visible Class III: Soft palate, base of uvula visible Class IV: Only hard plate visible Mallampati Classification: Class II Surgeon: marina Diagnosis: dysphagia Surgical Procedure: egd/peg Anesthesia History: none Social History: smoking - nonsmoker Family History: no anesthesia problems Allergies: Coded Allergies: No Known Allergies (Unverified , 08/18/17) Medications: see eMAR Past Medical History Cardiovascular: Reports: HTN Pulmonary: Reports: other - bipap 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 Exam Physician Exam Last Vital Signs Date Time Temp Pulse Resp B/P (MAP) Pulse Ox O2 Delivery O2 Flow Rate FiO2 08/31/17 05:09 98.5 08/31/17 04:00 85 08/31/17 03:24 19 137/74 100 Non-Rebreather 100 08/30/17 23:36 12.0 Constitutional: NAD Neurologic: CN 2-12 intact, other - resting tremor Cardiovascular: RRR Respiratory: CTA Gastrointestinal: S/NT/ND Airway Exam Mallampati Score: Class II MO: full Neck: supple TMD: 2fb ROM: full Anesthesia Pre-op A/P Labs Hematology Test 08/31/17 04:25 White Blood Count 12.2 K/UL (4.8-10.8) H Red Blood Count 2.68 M/UL (4.20-5.40) L Hemoglobin 8.4 G/DL (12.0-16.0) L Hematocrit 26.7 % (37.0-47.0) L Mean Corpuscular Volume 100 FL (80-99) H Mean Corpuscular Hemoglobin 31.3 PG (27.0-31.0) H Mean Corpuscular Hemoglobin Concent 31.4 G/DL (32.0-36.0) L Red Cell Distribution Width 16.5 % (11.6-14.8) H Platelet Count 156 K/UL (150-450) Mean Platelet Volume 9.0 FL (6.5-10.1) Neutrophils (%) (Auto) 81.5 % (45.0-75.0) H Lymphocytes (%) (Auto) 12.3 % (20.0-45.0) L Monocytes (%) (Auto) 4.5 % (1.0-10.0) Eosinophils (%) (Auto) 1.4 % (0.0-3.0) Basophils (%) (Auto) 0.3 % (0.0-2.0) Chemistry Test 08/31/17 04:25 Sodium Level Pending Potassium Level Pending Chloride Level Pending Carbon Dioxide Level Pending Blood Urea Nitrogen Pending Creatinine Pending Estimat Glomerular Filtration Rate Pending Glucose Level Pending Calcium Level Pending sodium 158 Studies Pre-op Studies: EKG - nsr, Risk Assessment & Plan Assessment: asa4 Plan: mac Status Change Before Surgery: Yes - case cancelled until serun sodium corrected to 150 or less Pre-Antibiotics Drug: JA Mina Aug 31, 2017 07:40
[2017-08-31] MEDS ORDERED: Atropine Inj 1mg/10ml Syr IV PRN (07:45)
[2017-08-31] MEDS ORDERED: fentaNYL 100 mcg/2 mL IV PRN (07:45)
[2017-08-31] MEDS ORDERED: Midazolam 2mg/2ml Inj IVP PRN (07:45)
[2017-08-31] MEDS ORDERED: DiphenhydrAMINE 50mg/ml Inj IVP PRN (07:45)
[2017-08-31 07:56] LABS: ANION GAP 6 (5-15); BLOOD UREA NITROGEN 22 mg/dL (7-18); CARBON DIOXIDE 30 MMOL/L (21-32); CHLORIDE 122 MMOL/L (98-107); CREATININE 0.7 MG/DL (0.55-1.30); POTASSIUM 3.8 MMOL/L (3.5-5.1); SODIUM 158 MMOL/L (136-145)
--- NOTE | 2017-08-31 08:22 | Pre-Procedure Note/Attestation ---
Pre-Procedure Note/Attestation Complete Prior to Procedure Planned Procedure: not applicable Procedure Narrative: PEG Indications for Procedure Pre-Operative Diagnosis: Dysphagia Attestation I attest that I discussed the nature of the procedure; its benefits; risks and complications; and alternatives (and the risks and benefits of such alternatives ), prior to the procedure, with the patient (or the patient's legal territory sales representative). I attest that, if there was a reasonable possibility of needing a blood transfusion, the patient (or the patient's legal territory sales representative) was given the [facility] standardized written summary, pursuant to the [place] Blood Safety Act ([place] Health and Safety Code # 1645, as amended). I attest that I re-evaluated the patient just prior to the surgery and that there has been no change in the patient's H&P, except as documented below: ERIKA ESPINOSA Aug 31, 2017 08:22
--- NOTE | 2017-08-31 08:22 | Pre-Procedure Note/Attestation ---
Pre-Procedure Note/Attestation Complete Prior to Procedure Planned Procedure: not applicable Procedure Narrative: PEG Indications for Procedure Pre-Operative Diagnosis: Dysphagia Attestation I attest that I discussed the nature of the procedure; its benefits; risks and complications; and alternatives (and the risks and benefits of such alternatives ), prior to the procedure, with the patient (or the patient's legal commercial pest control representative). I attest that, if there was a reasonable possibility of needing a blood transfusion, the patient (or the patient's legal commercial pest control representative) was given the [facility] standardized written summary, pursuant to the [place] Blood Safety Act ([place] Health and Safety Code # 1645, as amended). I attest that I re-evaluated the patient just prior to the surgery and that there has been no change in the patient's H&P, except as documented below: ERIKA ESPINOSA Aug 31, 2017 08:22
--- NOTE | 2017-08-31 08:22 | Pre-Procedure Note/Attestation ---
Pre-Procedure Note/Attestation Complete Prior to Procedure Planned Procedure: not applicable Procedure Narrative: PEG Indications for Procedure Pre-Operative Diagnosis: Dysphagia Attestation I attest that I discussed the nature of the procedure; its benefits; risks and complications; and alternatives (and the risks and benefits of such alternatives ), prior to the procedure, with the patient (or the patient's legal inbound call center representative). I attest that, if there was a reasonable possibility of needing a blood transfusion, the patient (or the patient's legal inbound call center representative) was given the [facility] standardized written summary, pursuant to the [place] Blood Safety Act ([place] Health and Safety Code # 1645, as amended). I attest that I re-evaluated the patient just prior to the surgery and that there has been no change in the patient's H&P, except as documented below: ERIKA ESPINOSA Aug 31, 2017 08:22
--- NOTE | 2017-08-31 08:38 | General Progress Note ---
Assessment/Plan Assessment/Plan Assessment - Respiratory failure - improved - leukocytosis - improved - UTI - Anemia - free water deficit / hypernatremia - significantly worse Recommendations - Endoscopy cancelled due to rising Na - continue NGT free water and add IV D5 W - abx - optimize resp status - resume NGT feeds - re-schedule PEG once Na 150 or lower Subjective Allergies: Coded Allergies: No Known Allergies (Unverified , 08/18/17) Subjective above noted seen in GI lab slightly more sedate this am discussed with anesthesia am labs just back --> Na 158 Objective Last 24 Hour Vital Signs Date Time Temp Pulse Resp B/P (MAP) Pulse Ox O2 Delivery O2 Flow Rate FiO2 08/31/17 05:09 98.5 08/31/17 04:00 85 08/31/17 03:24 99.0 80 19 137/74 100 Non-Rebreather 100 08/31/17 01:57 97.9 08/31/17 00:00 77 08/31/17 00:00 97.9 92 19 131/71 100 Non-Rebreather 100 08/30/17 23:36 Non-Rebreather 12.0 50 08/30/17 23:36 100 Non-Rebreather 15.0 100 08/30/17 20:00 98.2 90 19 127/61 100 Non-Rebreather 100 08/30/17 20:00 92 08/30/17 17:18 90 08/30/17 16:00 97.3 96 19 129/60 100 Non-Rebreather 100 08/30/17 15:16 109 117/67 08/30/17 12:44 109 08/30/17 12:00 98.4 85 18 117/67 100 Non-Rebreather 100 08/30/17 09:34 103/74 Laboratory Tests 08/31/17 04:25: White Blood Count 12.2H, Red Blood Count 2.68L, Hemoglobin 8.4L, Hematocrit 26.7L, Mean Corpuscular Volume 100H, Mean Corpuscular Hemoglobin 31.3H, Mean Corpuscular Hemoglobin Concent 31.4L, Red Cell Distribution Width 16.5H, Platelet Count 156, Mean Platelet Volume 9.0, Neutrophils (%) (Auto) 81.5H, Lymphocytes (%) (Auto) 12.3L, Monocytes (%) (Auto) 4.5, Eosinophils (%) (Auto) 1.4, Basophils (%) (Auto) 0.3, Sodium Level 158H, Potassium Level 3.8, Chloride Level 122H, Carbon Dioxide Level 30, Anion Gap 6, Blood Urea Nitrogen 22H, Creatinine 0.7, Estimat Glomerular Filtration Rate > 60, Glucose Level 127#H, Calcium Level 8.0L Height (Feet): 5 Height (Inches): 2.00 Weight (Pounds): 110 Objective Thin AA woman NCAT (+) NGT and face mask O2 Neck supple Chest: b/l coarse BS RRR soft ND NT no edema ERIKA ESPINOSA Aug 31, 2017 08:38
[2017-08-31 08:44] VITALS: BP 131/71
[2017-08-31] MEDS: Levemir Flexpen SUBQ SCH ×2 (09:00→21:00)
[2017-08-31] MEDS: Losartan 50mg tab NG SCH (10:13)
[2017-08-31] MEDS: Ferrous Sulfate 300 MG/5 ML UDC NG SCH (10:13)
[2017-08-31] MEDS: KCl 10% 40mEq/30ml liquid NG SCH ×2 (10:14→17:12)
[2017-08-31] MEDS: Ascorbic Acid 500mg tab NG SCH (10:14)
[2017-08-31] MEDS: Citalopram Hydrobromide 10mg Tab GT SCH (10:21)
--- NOTE | 2017-08-31 11:08 | Infectious Diseases Prog Note ---
Assessment/Plan Assessment/Plan ASSESSMENT AND PLAN: 1. sepsis, klebsiella uti, possible pna, leukocytosis and fevers, ? c.diff. - clinically better - leukocytosis and fevers better, mild leukocytosis noted - continue zosyn, vancomycin and flaygl for now - check sc, labs, chest x-ray, check c.diff. if has diarrhea - peg planned 2. The patient has history of diabetes. 3. Hypertension. 4. Anemia, hypernatremia 5. Respiratory insufficiency. 6. Blood sugar and blood pressure control per primary. 7. Diabetic ketoacidosis. 8. History of anxiety. 9. Depression. 10. Dementia. 11. Chronic pain syndrome. 12. Aspiration risk. 13. Altered mental status. 14. Poor historian. 15. No known allergies. 16. Social history is negative. 17. Family history is noncontributory. 18. MAR was noted. 19. Case was discussed with RN. 20. Notes and records were noted. 21. Skin care protocol. 22. I have reviewed the wounds. I do not think this is her source of sepsis. Continue local wound care protocol. wc - likely colonizer. 23. Continue treatment per Dr. Winn. Subjective Constitutional: Denies: fever HEENT: Reports: congestion Respiratory: Reports: shortness of breath Cardiovascular: Denies: chest pain Gastrointestinal/Abdominal: Denies: nausea, vomiting, diarrhea Genitourinary: Reports: other - + rowe - urine slt cloudy Neurologic: Denies: headache Psychiatric: Denies: depression Skin: Denies: rash Hematologic: Denies: bleeding Musculoskeletal: Denies: pain Allergies: Coded Allergies: No Known Allergies (Unverified , 08/18/17) Objective Vital Signs Last 24 Hour Vital Signs Date Time Temp Pulse Resp B/P (MAP) Pulse Ox O2 Delivery O2 Flow Rate FiO2 08/31/17 10:14 92 131/71 08/31/17 10:13 131/71 08/31/17 08:44 97.9 92 20 131/71 100 Non-Rebreather 15.0 08/31/17 07:27 72 08/31/17 05:09 98.5 08/31/17 04:00 85 08/31/17 03:24 99.0 80 19 137/74 100 Non-Rebreather 100 08/31/17 01:57 97.9 08/31/17 00:00 77 08/31/17 00:00 97.9 92 19 131/71 100 Non-Rebreather 100 08/30/17 23:36 Non-Rebreather 12.0 50 08/30/17 23:36 100 Non-Rebreather 15.0 100 08/30/17 20:00 98.2 90 19 127/61 100 Non-Rebreather 100 08/30/17 20:00 92 08/30/17 17:18 90 08/30/17 16:00 97.3 96 19 129/60 100 Non-Rebreather 100 08/30/17 15:16 109 117/67 08/30/17 12:44 109 08/30/17 12:00 98.4 85 18 117/67 100 Non-Rebreather 100 Height (Feet): 5 Height (Inches): 2.00 Weight (Pounds): 110 General Appearance: no acute distress HEENT: normocephalic, atraumatic, anicteric, mucous membranes moist, EOMI, pharynx normal, supple, no JVD Respiratory/Chest: crackles/rales, rhonchi - bilaterally Cardiovascular: normal rate, regular rhythm, no gallop/murmur, no JVD Abdomen: normal bowel sounds, soft, non tender, no organomegaly, non distended Genitourinary: other - + rowe - urine slt. 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 The pleural spaces are clear. The heart size is normal. There is a nasogastric tube again demonstrated. Left shoulder hardware is again demonstrated Impression: Unchanged, over one day, findings as above. Microbiology Date/Time Source Procedure Growth Status 08/26/17 03:55 Blood Blood Culture - Final NO GROWTH AFTER 5 DAYS Complete 08/18/17 21:45 Nasal Nares MRSA Culture - Final NO METHICILLIN RESISTANT STAPH AUREUS... Complete 08/25/17 15:30 Urine,Clean Catch Urine Culture - Final NO GROWTH AFTER 48 HOURS Complete 08/19/17 07:00 Buttock Left Gram Stain - Final Complete 08/19/17 07:00 Wound Culture - Final Staphylococcus Sp Coag Neg Diphtheroids Complete Laboratory Tests Test 08/31/17 04:25 White Blood Count 12.2 K/UL (4.8-10.8) H Red Blood Count 2.68 M/UL (4.20-5.40) L Hemoglobin 8.4 G/DL (12.0-16.0) L Hematocrit 26.7 % (37.0-47.0) L Mean Corpuscular Volume 100 FL (80-99) H Mean Corpuscular Hemoglobin 31.3 PG (27.0-31.0) H Mean Corpuscular Hemoglobin Concent 31.4 G/DL (32.0-36.0) L Red Cell Distribution Width 16.5 % (11.6-14.8) H Platelet Count 156 K/UL (150-450) Mean Platelet Volume 9.0 FL (6.5-10.1) Neutrophils (%) (Auto) 81.5 % (45.0-75.0) H Lymphocytes (%) (Auto) 12.3 % (20.0-45.0) L Monocytes (%) (Auto) 4.5 % (1.0-10.0) Eosinophils (%) (Auto) 1.4 % (0.0-3.0) Basophils (%) (Auto) 0.3 % (0.0-2.0) Sodium Level 158 MMOL/L (136-145) H Potassium Level 3.8 MMOL/L (3.5-5.1) Chloride Level 122 MMOL/L (98-107) H Carbon Dioxide Level 30 MMOL/L (21-32) Anion Gap 6 (5-15) Blood Urea Nitrogen 22 mg/dL (7-18) H Creatinine 0.7 MG/DL (0.55-1.30) Estimat Glomerular Filtration Rate > 60 mL/min (>60) Glucose Level 127 MG/DL (74-106) #H Calcium Level 8.0 MG/DL (8.5-10.1) L Current Medications Medications (Trade) Dose Ordered Sig/Adonay Route PRN Reason Start Time Stop Time Status Last Admin Dose Admin Acetaminophen (Tylenol) 650 mg Q6H PRN ORAL Mild Pain/Temp > 100.5 08/21/17 20:00 09/18/17 07:59 08/31/17 04:10 Amlodipine Besylate (Norvasc) 10 mg DAILY NG 08/23/17 09:00 09/22/17 08:59 08/31/17 10:14 Ascorbic Acid (Vitamin C) 500 mg DAILY NG 08/23/17 09:00 09/22/17 08:59 08/31/17 10:14 Baclofen (Lioresal) 10 mg THREE TIMES A DAY NG 08/23/17 09:00 09/22/17 08:59 08/31/17 10:15 Citalopram Hydrobromide (celeXA) 20 mg DAILY GT 08/27/17 09:00 09/18/17 08:59 08/31/17 10:21 Clonidine HCl (Catapres) 0.1 mg Q6H PRN NG SBP > 160mmHg 08/23/17 08:30 09/22/17 08:29 Dextrose 1,000 ml @ 83 mls/hr Q12H3M IV 08/31/17 09:30 09/30/17 09:29 08/31/17 10:18 Dextrose (Dextrose 50%) STAT PRN IV Hypoglycemia 08/21/17 20:00 09/20/17 19:59 08/28/17 09:30 Ferrous Sulfate (Feosol) 300 mg DAILY NG 08/27/17 09:00 09/26/17 08:59 08/31/17 10:13 Insulin Aspart (NovoLOG) EVERY 4 HOURS SUBQ 08/21/17 21:00 09/19/17 08:59 08/31/17 05:32 Insulin Detemir (Levemir) 7 units EVERY 12 HOURS SUBQ 08/31/17 09:00 09/30/17 08:59 Lansoprazole (Prevacid) 30 mg DAILY NG 08/24/17 09:00 09/23/17 08:59 08/31/17 10:15 Levothyroxine Sodium (Synthroid) 75 mcg ACBREAKFAST NG 08/24/17 06:30 09/23/17 06:29 08/31/17 05:33 Losartan Potassium (Cozaar) 50 mg DAILY NG 08/23/17 09:00 09/22/17 08:59 08/31/17 10:13 Metronidazole (Flagyl) 500 mg EVERY 8 HOURS ORAL 08/28/17 22:00 09/04/17 21:59 08/31/17 05:33 Multivitamins (Multivitamins) 1 tab DAILY ORAL 08/22/17 09:00 09/18/17 08:59 08/31/17 10:14 Ondansetron HCl (Zofran) 4 mg Q6H PRN NG Nausea & Vomiting 08/26/17 15:30 09/18/17 07:59 Oxycodone/ Acetaminophen (Percocet 5-325) 1 tab Q6H PRN ORAL for severe breakthrough pain 08/26/17 15:30 09/02/17 10:44 08/31/17 10:35 Piperacillin Sod/ Tazobactam Sod 3.375 gm/Dextrose 100 ml @ 25 mls/hr EVERY 8 HOURS IVPB 08/28/17 22:00 09/02/17 21:59 08/31/17 05:34 Potassium Chloride (KCl 10% 40mEq Oral solution) 40 meq TWICE A DAY NG 08/24/17 18:00 09/23/17 17:59 08/31/17 10:14 Quetiapine Fumarate (SEROquel) 12.5 mg Q12H PRN ORAL Agitation 08/30/17 11:45 09/29/17 11:44 Vancomycin HCl (Vanco rx to dose) 1 ea DAILY PRN MISC Per rx protocol 08/28/17 16:15 09/27/17 16:14 Vancomycin/Sodium Chloride 250 ml @ 166.667 mls/hr Q24H IVPB 08/29/17 18:00 09/03/17 17:59 08/30/17 18:17 YASIR RUEDA Aug 31, 2017 11:08
[2017-08-31 12:54] VITALS: BP 110/64
--- NOTE | 2017-08-31 14:02 | Diagnostic Imaging Report ---
Indication: Status post nasogastric tube placement Technique: Supine view of the abdomen Comparison: 08/20/2017 Findings: There is a nasogastric tube in place, tip which projects at the level gastric body. Bowel gas pattern is unremarkable. Impression: Satisfactory nasogastric intubation No acute process
[2017-08-31 15:54] VITALS: BP 112/61
--- NOTE | 2017-08-31 17:00 | Pulmonology Progress Note ---
Assessment/Plan Assessment/Plan DKA, resolved DM w hypoglycemia, now stable UTI sepsis htn anxiety, depression chronic pain on meds AMS, improved but still confused lactic acidosis respiratory failure, interstitial edema Hypernatremia, dehydration Looks dry, PEG canceled due to high Na Abx per ID DM rx per Dr Andrade rx UTI, sepsis; cultures neg disc w RN PEG per GI tomorrow; disc w GI IV D5W rx taper O2 Subjective ROS Limited/Unobtainable: Yes - I want water Allergies: Coded Allergies: No Known Allergies (Unverified , 08/18/17) Objective Last 24 Hour Vital Signs Date Time Temp Pulse Resp B/P (MAP) Pulse Ox O2 Delivery O2 Flow Rate FiO2 08/31/17 15:54 98.2 85 19 112/61 100 Non-Rebreather 15.0 08/31/17 12:54 98.1 78 20 110/64 100 Non-Rebreather 15.0 08/31/17 11:38 77 08/31/17 10:14 92 131/71 08/31/17 10:13 131/71 08/31/17 08:44 97.9 92 20 131/71 100 Non-Rebreather 15.0 08/31/17 07:49 Non-Rebreather 14.0 100 08/31/17 07:48 100 Non-Rebreather 15.0 100 08/31/17 07:27 72 08/31/17 05:09 98.5 08/31/17 04:00 85 08/31/17 03:24 99.0 80 19 137/74 100 Non-Rebreather 100 08/31/17 01:57 97.9 08/31/17 00:00 77 08/31/17 00:00 97.9 92 19 131/71 100 Non-Rebreather 100 08/30/17 23:36 Non-Rebreather 12.0 50 08/30/17 23:36 100 Non-Rebreather 15.0 100 08/30/17 20:00 98.2 90 19 127/61 100 Non-Rebreather 100 08/30/17 20:00 92 08/30/17 17:18 90 Intake and Output 08/31/17 09/01/17 19:00 07:00 Intake Total 357.1 ml Balance 357.1 ml IV Total 357.1 ml # Bowel Movements 5 General Appearance: no acute distress, cachetic HEENT: atraumatic, other - mouth dry Respiratory/Chest: lungs clear Cardiovascular: normal rate Microbiology Date/Time Source Procedure Growth Status 08/30/17 18:30 Stool Clostridium difficile Toxin Assay - Final Complete Laboratory Tests 08/31/17 04:25: White Blood Count 12.2H, Red Blood Count 2.68L, Hemoglobin 8.4L, Hematocrit 26.7L, Mean Corpuscular Volume 100H, Mean Corpuscular Hemoglobin 31.3H, Mean Corpuscular Hemoglobin Concent 31.4L, Red Cell Distribution Width 16.5H, Platelet Count 156, Mean Platelet Volume 9.0, Neutrophils (%) (Auto) 81.5H, Lymphocytes (%) (Auto) 12.3L, Monocytes (%) (Auto) 4.5, Eosinophils (%) (Auto) 1.4, Basophils (%) (Auto) 0.3, Sodium Level 158H, Potassium Level 3.8, Chloride Level 122H, Carbon Dioxide Level 30, Anion Gap 6, Blood Urea Nitrogen 22H, Creatinine 0.7, Estimat Glomerular Filtration Rate > 60, Glucose Level 127#H, Calcium Level 8.0L Current Medications Medications (Trade) Dose Ordered Sig/Adonay Route PRN Reason Start Time Stop Time Status Last Admin Dose Admin Acetaminophen (Tylenol) 650 mg Q6H PRN ORAL Mild Pain/Temp > 100.5 08/21/17 20:00 09/18/17 07:59 08/31/17 04:10 Amlodipine Besylate (Norvasc) 10 mg DAILY NG 08/23/17 09:00 09/22/17 08:59 08/31/17 10:14 Ascorbic Acid (Vitamin C) 500 mg DAILY NG 08/23/17 09:00 09/22/17 08:59 08/31/17 10:14 Baclofen (Lioresal) 10 mg THREE TIMES A DAY NG 08/23/17 09:00 09/22/17 08:59 08/31/17 14:09 Citalopram Hydrobromide (celeXA) 20 mg DAILY GT 08/27/17 09:00 09/18/17 08:59 08/31/17 10:21 Clonidine HCl (Catapres) 0.1 mg Q6H PRN NG SBP > 160mmHg 08/23/17 08:30 09/22/17 08:29 Dextrose 1,000 ml @ 83 mls/hr Q12H3M IV 08/31/17 09:30 09/30/17 09:29 08/31/17 10:18 Dextrose (Dextrose 50%) STAT PRN IV Hypoglycemia 08/21/17 20:00 09/20/17 19:59 08/28/17 09:30 Ferrous Sulfate (Feosol) 300 mg DAILY NG 08/27/17 09:00 09/26/17 08:59 08/31/17 10:13 Insulin Aspart (NovoLOG) EVERY 4 HOURS SUBQ 08/21/17 21:00 09/19/17 08:59 08/31/17 14:09 Insulin Detemir (Levemir) 7 units EVERY 12 HOURS SUBQ 08/31/17 09:00 09/30/17 08:59 Lansoprazole (Prevacid) 30 mg DAILY NG 08/24/17 09:00 09/23/17 08:59 08/31/17 10:15 Levothyroxine Sodium (Synthroid) 75 mcg ACBREAKFAST NG 08/24/17 06:30 09/23/17 06:29 08/31/17 05:33 Losartan Potassium (Cozaar) 50 mg DAILY NG 08/23/17 09:00 09/22/17 08:59 08/31/17 10:13 Metronidazole (Flagyl) 500 mg EVERY 8 HOURS ORAL 08/28/17 22:00 09/04/17 21:59 08/31/17 14:09 Multivitamins (Multivitamins) 1 tab DAILY ORAL 08/22/17 09:00 09/18/17 08:59 08/31/17 10:14 Ondansetron HCl (Zofran) 4 mg Q6H PRN NG Nausea & Vomiting 08/26/17 15:30 09/18/17 07:59 Oxycodone/ Acetaminophen (Percocet 5-325) 1 tab Q6H PRN ORAL for severe breakthrough pain 08/26/17 15:30 09/02/17 10:44 08/31/17 10:35 Piperacillin Sod/ Tazobactam Sod 3.375 gm/Dextrose 100 ml @ 25 mls/hr EVERY 8 HOURS IVPB 08/31/17 14:00 09/05/17 13:59 08/31/17 14:10 Potassium Chloride (KCl 10% 40mEq Oral solution) 40 meq TWICE A DAY NG 08/24/17 18:00 09/23/17 17:59 08/31/17 10:14 Quetiapine Fumarate (SEROquel) 12.5 mg Q12H PRN ORAL Agitation 08/30/17 11:45 09/29/17 11:44 Vancomycin HCl (Vanco rx to dose) 1 ea DAILY PRN MISC Per rx protocol 08/28/17 16:15 09/27/17 16:14 Vancomycin/Sodium Chloride 250 ml @ 166.667 mls/hr Q24H IVPB 08/29/17 18:00 09/03/17 17:59 08/30/17 18:17 PATRICIA LUGO Aug 31, 2017 17:00
[2017-08-31 20:00] VITALS: BP 136/61
[2017-08-31] MEDS ORDERED: NS IVPB ONE (21:00)
[2017-08-31] MEDS ORDERED: Vancomycin 1250mg/D5W 250ml IVPB ONE (21:00)
[2017-08-31] MEDS ORDERED: VANCOMYCIN IVPB ONE (21:00)
[2017-08-31] MEDS: Piperacillin/Tazobactam 3.375 GM in NS 110 ML IVPB SCH (23:38)
[2017-09-01] VITALS: BP 136/65
[2017-09-01] MEDS: oxyCODONE HCL/Acetaminophen 5/325mg ORAL PRN (00:17)
--- NOTE | 2017-09-01 00:25 | General Progress Note ---
Assessment/Plan Status: stable, progressing Subjective Date patient seen: Aug 31, 2017 Constitutional: Reports: malaise, weakness Neurologic/Psychiatric: Reports: anxiety, depressed, emotional problems Allergies: Coded Allergies: No Known Allergies (Unverified , 08/18/17) Objective Last 24 Hour Vital Signs Date Time Temp Pulse Resp B/P (MAP) Pulse Ox O2 Delivery O2 Flow Rate FiO2 08/31/17 20:00 87 08/31/17 20:00 98.4 91 22 136/61 98 Venturi Mask 55 08/31/17 18:17 24 94 Venturi Mask 55 08/31/17 15:54 98.2 85 19 112/61 100 Non-Rebreather 15.0 08/31/17 15:22 89 08/31/17 12:54 98.1 78 20 110/64 100 Non-Rebreather 15.0 08/31/17 11:38 77 08/31/17 10:14 92 131/71 08/31/17 10:13 131/71 08/31/17 08:44 97.9 92 20 131/71 100 Non-Rebreather 15.0 08/31/17 07:49 Non-Rebreather 14.0 100 08/31/17 07:48 100 Non-Rebreather 15.0 100 08/31/17 07:27 72 08/31/17 05:09 98.5 08/31/17 04:00 85 08/31/17 03:24 99.0 80 19 137/74 100 Non-Rebreather 100 08/31/17 01:57 97.9 Laboratory Tests 08/31/17 04:25: White Blood Count 12.2H, Red Blood Count 2.68L, Hemoglobin 8.4L, Hematocrit 26.7L, Mean Corpuscular Volume 100H, Mean Corpuscular Hemoglobin 31.3H, Mean Corpuscular Hemoglobin Concent 31.4L, Red Cell Distribution Width 16.5H, Platelet Count 156, Mean Platelet Volume 9.0, Neutrophils (%) (Auto) 81.5H, Lymphocytes (%) (Auto) 12.3L, Monocytes (%) (Auto) 4.5, Eosinophils (%) (Auto) 1.4, Basophils (%) (Auto) 0.3, Sodium Level 158H, Potassium Level 3.8, Chloride Level 122H, Carbon Dioxide Level 30, Anion Gap 6, Blood Urea Nitrogen 22H, Creatinine 0.7, Estimat Glomerular Filtration Rate > 60, Glucose Level 127#H, Calcium Level 8.0L 08/31/17 17:18: Vancomycin Level Trough 5.4 Height (Feet): 5 Height (Inches): 2.00 Weight (Pounds): 110 General Appearance: alert, confused, moderate distress Neurologic: alert, responsive, disoriented, depressed affect Audi Bonilla M.D. Sep 01, 2017 00:25
[2017-09-01] MEDS: NovoLOG Insulin Flexpen SUBQ SCH ×7 (01:24→23:31)
[2017-09-01 04:00] VITALS: BP_SYST 114; BP_SYST 121; BP_DIAS 72; BP_DIAS 76
[2017-09-01] MEDS: metroNIDAZOLE 500mg tab ORAL SCH ×3 (06:00→13:15)
[2017-09-01] MEDS: Piperacillin/Tazobactam 3.375 GM in NS 110 ML IVPB SCH ×3 (07:00→22:00)
[2017-09-01 07:40] LABS: BASOPHILS % (AUTO) 0.7 % (0.0-2.0); EOSINOPHILS % (AUTO) 1.6 % (0.0-3.0); HEMATOCRIT 25.1 % (37.0-47.0); LYMPHOCYTES % (AUTO) 7.8 % (20.0-45.0); MEAN CORPUSCULAR VOLUME 100 FL (80-99); MONOCYTES % (AUTO) 6.8 % (1.0-10.0); PLATELET COUNT 159 K/UL (150-450); RED BLOOD COUNT 2.52 M/UL (4.20-5.40); RED CELL DISTRIBUTION WIDTH 16.4 % (11.6-14.8); WHITE BLOOD COUNT 11.7 K/UL (4.8-10.8)
[2017-09-01 08:00] VITALS: BP 124/70
[2017-09-01 08:01] LABS: ALANINE AMINOTRANSFERASE 26 U/L (12-78); ALBUMIN 1.1 G/DL (3.4-5.0); ALBUMIN/GLOBULIN RATIO 0.2 (1.0-2.7); ALKALINE PHOSPHATASE 149 U/L (46-116); ANION GAP 9 (5-15); ASPARTATE AMINO TRANSFERASE 41 U/L (15-37); BILIRUBIN,TOTAL 0.3 MG/DL (0.2-1.0); BLOOD UREA NITROGEN 16 mg/dL (7-18); CALCIUM 8.1 MG/DL (8.5-10.1); CARBON DIOXIDE 26 MMOL/L (21-32); CHLORIDE 121 MMOL/L (98-107); CREATININE 0.6 MG/DL (0.55-1.30); POTASSIUM 3.5 MMOL/L (3.5-5.1); SODIUM 156 MMOL/L (136-145)
[2017-09-01] MEDS: Citalopram Hydrobromide 10mg Tab GT SCH (09:04)
[2017-09-01] MEDS: KCl 10% 40mEq/30ml liquid NG SCH ×2 (09:04→17:58)
[2017-09-01] MEDS: Losartan 50mg tab NG SCH (09:04)
[2017-09-01] MEDS: Ascorbic Acid 500mg tab NG SCH (09:05)
[2017-09-01] MEDS: Ferrous Sulfate 300 MG/5 ML UDC NG SCH (09:05)
[2017-09-01] MEDS: Levemir Flexpen SUBQ SCH ×2 (09:07→21:34)
--- NOTE | 2017-09-01 11:28 | Pulmonology Progress Note ---
Assessment/Plan Assessment/Plan DKA, resolved DM w hypoglycemia, now stable UTI sepsis htn anxiety, depression chronic pain on meds AMS, improved but still confused lactic acidosis respiratory failure, interstitial edema Hypernatremia, dehydration PEG canceled due to high Na Abx per ID DM rx per Dr Andrade rx UTI, sepsis; cultures neg disc w RN PEG per GI IV D5W rx taper O2 Subjective Interval Events: awake; comfortable Constitutional: Reports: no symptoms HEENT: Repors: no symptoms Respiratory: Reports: no symptoms Cardiovascular: Reports: no symptoms Gastrointestinal/Abdominal: Reports: no symptoms Allergies: Coded Allergies: No Known Allergies (Unverified , 08/18/17) Objective Last 24 Hour Vital Signs Date Time Temp Pulse Resp B/P (MAP) Pulse Ox O2 Delivery O2 Flow Rate FiO2 09/01/17 09:05 76 114/76 09/01/17 09:04 114/76 09/01/17 08:03 76 09/01/17 08:00 97.1 82 20 124/70 100 Venturi Mask 55 09/01/17 04:00 97.7 76 21 114/76 97 Venturi Mask 55 09/01/17 04:00 81 09/01/17 04:00 97.7 85 22 121/72 98 Venturi Mask 55 09/01/17 01:16 98.2 09/01/17 00:00 81 09/01/17 00:00 97.9 100 24 136/65 98 Venturi Mask 55 08/31/17 20:00 87 08/31/17 20:00 98.4 91 22 136/61 98 Venturi Mask 55 08/31/17 18:17 24 94 Venturi Mask 55 08/31/17 15:54 98.2 85 19 112/61 100 Non-Rebreather 15.0 08/31/17 15:22 89 08/31/17 12:54 98.1 78 20 110/64 100 Non-Rebreather 15.0 08/31/17 11:38 77 Intake and Output 09/01/17 09/02/17 19:00 07:00 Intake Total 290.5 ml Balance 290.5 ml IV Total 290.5 ml # Bowel Movements 1 General Appearance: no acute distress HEENT: normocephalic Respiratory/Chest: chest wall non-tender, lungs clear Cardiovascular: normal peripheral pulses, normal rate Microbiology Date/Time Source Procedure Growth Status 08/30/17 18:30 Stool Clostridium difficile Toxin Assay - Final Complete Laboratory Tests 08/31/17 17:18: Vancomycin Level Trough 5.4 09/01/17 06:21: White Blood Count 11.7H, Red Blood Count 2.52L, Hemoglobin 8.0L, Hematocrit 25.1L, Mean Corpuscular Volume 100H, Mean Corpuscular Hemoglobin 31.7H, Mean Corpuscular Hemoglobin Concent 31.8L, Red Cell Distribution Width 16.4H, Platelet Count 159, Mean Platelet Volume 8.6, Neutrophils (%) (Auto) 83.0H, Lymphocytes (%) (Auto) 7.8L, Monocytes (%) (Auto) 6.8, Eosinophils (%) (Auto) 1.6, Basophils (%) (Auto) 0.7, Sodium Level 156H, Potassium Level 3.5, Chloride Level 121H, Carbon Dioxide Level 26, Anion Gap 9, Blood Urea Nitrogen 16, Creatinine 0.6, Estimat Glomerular Filtration Rate > 60, Glucose Level 140H, Calcium Level 8.1L, Total Bilirubin 0.3, Aspartate Amino Transf (AST/SGOT) 41H, Alanine Aminotransferase (ALT/SGPT) 26, Alkaline Phosphatase 149H, Total Protein 5.9L, Albumin 1.1L, Globulin 4.8, Albumin/Globulin Ratio 0.2L Current Medications Medications (Trade) Dose Ordered Sig/Adonay Route PRN Reason Start Time Stop Time Status Last Admin Dose Admin Acetaminophen (Tylenol) 650 mg Q6H PRN ORAL Mild Pain/Temp > 100.5 08/21/17 20:00 09/18/17 07:59 08/31/17 04:10 Amlodipine Besylate (Norvasc) 10 mg DAILY NG 08/23/17 09:00 09/22/17 08:59 09/01/17 09:05 Ascorbic Acid (Vitamin C) 500 mg DAILY NG 08/23/17 09:00 09/22/17 08:59 09/01/17 09:05 Baclofen (Lioresal) 10 mg THREE TIMES A DAY NG 08/23/17 09:00 09/22/17 08:59 09/01/17 09:04 Citalopram Hydrobromide (celeXA) 20 mg DAILY GT 08/27/17 09:00 09/18/17 08:59 09/01/17 09:04 Clonidine HCl (Catapres) 0.1 mg Q6H PRN NG SBP > 160mmHg 08/23/17 08:30 09/22/17 08:29 Dextrose 1,000 ml @ 125 mls/hr Q8H IV 09/01/17 09:30 10/01/17 09:29 09/01/17 09:08 Dextrose (Dextrose 50%) STAT PRN IV Hypoglycemia 08/21/17 20:00 09/20/17 19:59 08/28/17 09:30 Ferrous Sulfate (Feosol) 300 mg DAILY NG 08/27/17 09:00 09/26/17 08:59 09/01/17 09:05 Insulin Aspart (NovoLOG) EVERY 4 HOURS SUBQ 08/21/17 21:00 09/19/17 08:59 09/01/17 09:06 Insulin Detemir (Levemir) 7 units EVERY 12 HOURS SUBQ 08/31/17 09:00 09/30/17 08:59 09/01/17 09:07 Lansoprazole (Prevacid) 30 mg DAILY NG 08/24/17 09:00 09/23/17 08:59 09/01/17 09:04 Levothyroxine Sodium (Synthroid) 75 mcg ACBREAKFAST NG 08/24/17 06:30 09/23/17 06:29 09/01/17 07:37 Losartan Potassium (Cozaar) 50 mg DAILY NG 08/23/17 09:00 09/22/17 08:59 09/01/17 09:04 Metronidazole (Flagyl) 500 mg EVERY 8 HOURS ORAL 08/28/17 22:00 09/04/17 21:59 09/01/17 07:37 Multivitamins (Multivitamins) 1 tab DAILY ORAL 08/22/17 09:00 09/18/17 08:59 09/01/17 09:05 Ondansetron HCl (Zofran) 4 mg Q6H PRN NG Nausea & Vomiting 08/26/17 15:30 09/18/17 07:59 Oxycodone/ Acetaminophen (Percocet 5-325) 1 tab Q6H PRN ORAL for severe breakthrough pain 08/26/17 15:30 09/02/17 10:44 09/01/17 00:17 Piperacillin Sod/ Tazobactam Sod 3.375 gm/Sodium Chloride 110 ml @ 27.5 mls/hr EVERY 8 HOURS IVPB 08/31/17 22:00 09/07/17 21:59 09/01/17 07:00 Potassium Chloride (KCl 10% 40mEq Oral solution) 40 meq TWICE A DAY NG 08/24/17 18:00 09/23/17 17:59 09/01/17 09:04 Quetiapine Fumarate (SEROquel) 12.5 mg Q12H PRN ORAL Agitation 08/30/17 11:45 09/29/17 11:44 Vancomycin HCl (Vanco rx to dose) 1 ea DAILY PRN MISC Per rx protocol 08/28/17 16:15 09/27/17 16:14 Vancomycin HCl 1 gm/Sodium Chloride 275 ml @ 183.708 mls/hr Q24H IVPB 09/01/17 21:00 09/06/17 20:59 Sánchez Freeman MD Sep 01, 2017 11:28
[2017-09-01 12:07] VITALS: BP 111/61
--- NOTE | 2017-09-01 14:01 | Geriatric Progress Note ---
Assessment/Plan Discussed with: patient Subjective Mood/Memory: Reports: prior hx, anxiety, depressed feelings, emotional problems Sleep: Reports: sleeps well Geriatric Geriatric Last 24 Hour Vital Signs Date Time Temp Pulse Resp B/P (MAP) Pulse Ox O2 Delivery O2 Flow Rate FiO2 09/01/17 12:07 97.7 72 19 111/61 99 Venturi Mask 55 09/01/17 09:05 76 114/76 09/01/17 09:04 114/76 09/01/17 08:03 76 09/01/17 08:00 97.1 82 20 124/70 100 Venturi Mask 55 09/01/17 04:00 97.7 76 21 114/76 97 Venturi Mask 55 09/01/17 04:00 81 09/01/17 04:00 97.7 85 22 121/72 98 Venturi Mask 55 09/01/17 01:16 98.2 09/01/17 00:00 81 09/01/17 00:00 97.9 100 24 136/65 98 Venturi Mask 55 08/31/17 20:00 87 08/31/17 20:00 98.4 91 22 136/61 98 Venturi Mask 55 08/31/17 18:17 24 94 Venturi Mask 55 08/31/17 15:54 98.2 85 19 112/61 100 Non-Rebreather 15.0 08/31/17 15:22 89 Intake and Output 09/01/17 09/02/17 19:00 07:00 Intake Total 290.5 ml Balance 290.5 ml IV Total 290.5 ml # Bowel Movements 1 Laboratory Tests Test 08/31/17 17:18 09/01/17 06:21 Vancomycin Level Trough 5.4 ug/mL (5.0-12.0) White Blood Count 11.7 K/UL (4.8-10.8) H Red Blood Count 2.52 M/UL (4.20-5.40) L Hemoglobin 8.0 G/DL (12.0-16.0) L Hematocrit 25.1 % (37.0-47.0) L Mean Corpuscular Volume 100 FL (80-99) H Mean Corpuscular Hemoglobin 31.7 PG (27.0-31.0) H Mean Corpuscular Hemoglobin Concent 31.8 G/DL (32.0-36.0) L Red Cell Distribution Width 16.4 % (11.6-14.8) H Platelet Count 159 K/UL (150-450) Mean Platelet Volume 8.6 FL (6.5-10.1) Neutrophils (%) (Auto) 83.0 % (45.0-75.0) H Lymphocytes (%) (Auto) 7.8 % (20.0-45.0) L Monocytes (%) (Auto) 6.8 % (1.0-10.0) Eosinophils (%) (Auto) 1.6 % (0.0-3.0) Basophils (%) (Auto) 0.7 % (0.0-2.0) Sodium Level 156 MMOL/L (136-145) H Potassium Level 3.5 MMOL/L (3.5-5.1) Chloride Level 121 MMOL/L (98-107) H Carbon Dioxide Level 26 MMOL/L (21-32) Anion Gap 9 (5-15) Blood Urea Nitrogen 16 mg/dL (7-18) Creatinine 0.6 MG/DL (0.55-1.30) Estimat Glomerular Filtration Rate > 60 mL/min (>60) Glucose Level 140 MG/DL (74-106) H Calcium Level 8.1 MG/DL (8.5-10.1) L Total Bilirubin 0.3 MG/DL (0.2-1.0) Aspartate Amino Transf (AST/SGOT) 41 U/L (15-37) H Alanine Aminotransferase (ALT/SGPT) 26 U/L (12-78) Alkaline Phosphatase 149 U/L (46-116) H Total Protein 5.9 G/DL (6.4-8.2) L Albumin 1.1 G/DL (3.4-5.0) L Globulin 4.8 g/dL Albumin/Globulin Ratio 0.2 (1.0-2.7) L Current Medications Medications (Trade) Dose Ordered Sig/Adonay Route PRN Reason Start Time Stop Time Status Last Admin Dose Admin Acetaminophen (Tylenol) 650 mg Q6H PRN ORAL Mild Pain/Temp > 100.5 08/21/17 20:00 09/18/17 07:59 08/31/17 04:10 Amlodipine Besylate (Norvasc) 10 mg DAILY NG 08/23/17 09:00 09/22/17 08:59 09/01/17 09:05 Ascorbic Acid (Vitamin C) 500 mg DAILY NG 08/23/17 09:00 09/22/17 08:59 09/01/17 09:05 Baclofen (Lioresal) 10 mg THREE TIMES A DAY NG 08/23/17 09:00 09/22/17 08:59 09/01/17 13:15 Citalopram Hydrobromide (celeXA) 20 mg DAILY GT 08/27/17 09:00 09/18/17 08:59 09/01/17 09:04 Clonidine HCl (Catapres) 0.1 mg Q6H PRN NG SBP > 160mmHg 08/23/17 08:30 09/22/17 08:29 Dextrose 1,000 ml @ 125 mls/hr Q8H IV 09/01/17 09:30 10/01/17 09:29 09/01/17 09:08 Dextrose (Dextrose 50%) STAT PRN IV Hypoglycemia 08/21/17 20:00 09/20/17 19:59 08/28/17 09:30 Ferrous Sulfate (Feosol) 300 mg DAILY NG 08/27/17 09:00 09/26/17 08:59 09/01/17 09:05 Insulin Aspart (NovoLOG) EVERY 4 HOURS SUBQ 08/21/17 21:00 09/19/17 08:59 09/01/17 13:17 Insulin Detemir (Levemir) 7 units EVERY 12 HOURS SUBQ 08/31/17 09:00 09/30/17 08:59 09/01/17 09:07 Lansoprazole (Prevacid) 30 mg DAILY NG 08/24/17 09:00 09/23/17 08:59 09/01/17 09:04 Levothyroxine Sodium (Synthroid) 75 mcg ACBREAKFAST NG 08/24/17 06:30 09/23/17 06:29 09/01/17 07:37 Losartan Potassium (Cozaar) 50 mg DAILY NG 08/23/17 09:00 09/22/17 08:59 09/01/17 09:04 Metronidazole (Flagyl) 500 mg EVERY 8 HOURS ORAL 08/28/17 22:00 09/04/17 21:59 09/01/17 13:15 Multivitamins (Multivitamins) 1 tab DAILY ORAL 08/22/17 09:00 09/18/17 08:59 09/01/17 09:05 Ondansetron HCl (Zofran) 4 mg Q6H PRN NG Nausea & Vomiting 08/26/17 15:30 09/18/17 07:59 Oxycodone/ Acetaminophen (Percocet 5-325) 1 tab Q6H PRN ORAL for severe breakthrough pain 08/26/17 15:30 09/02/17 10:44 09/01/17 00:17 Piperacillin Sod/ Tazobactam Sod 3.375 gm/Sodium Chloride 110 ml @ 27.5 mls/hr EVERY 8 HOURS IVPB 08/31/17 22:00 09/07/17 21:59 09/01/17 13:16 Potassium Chloride (KCl 10% 40mEq Oral solution) 40 meq TWICE A DAY NG 08/24/17 18:00 09/23/17 17:59 09/01/17 09:04 Quetiapine Fumarate (SEROquel) 12.5 mg Q12H PRN ORAL Agitation 08/30/17 11:45 09/29/17 11:44 Vancomycin HCl (Vanco rx to dose) 1 ea DAILY PRN MISC Per rx protocol 08/28/17 16:15 09/27/17 16:14 Vancomycin HCl 1 gm/Sodium Chloride 275 ml @ 183.708 mls/hr Q24H IVPB 09/01/17 21:00 09/06/17 20:59 Height (Feet): 5 Height (Inches): 2.00 Weight (Pounds): 110 General Appearance: alert, moderate distress Neurologic: alert, responsive Psychiatric: anxious Psychiatric Behavior: psychomotor agitation Orientation: person, disoriented Affect: restricted Audi Bonilla M.D. Sep 01, 2017 14:01
--- NOTE | 2017-09-01 14:06 | Diagnostic Imaging Report ---
Indication: Dyspnea Comparison: 08/29/17 A single view chest radiograph was obtained. Findings: Interstitial opacities again appear prominent bilaterally. Heart size is stable. NG tube is noted and in good position. Impression: No radiographic change. Interstitial opacities nonspecific
[2017-09-01 16:02] VITALS: BP 99/59
--- NOTE | 2017-09-01 18:01 | Infectious Diseases Prog Note ---
Assessment/Plan Assessment/Plan ASSESSMENT AND PLAN: 1. sepsis, klebsiella uti, possible pna, leukocytosis and fevers, c.diff. negative - clinically better, more alert and seems less sob - leukocytosis and fevers better, mild leukocytosis noted - continue zosyn, vancomycin - day # 4/10, discontinue flagyl - check sc if possible, labs, chest x-ray - peg planned 2. The patient has history of diabetes. 3. Hypertension. 4. Anemia, hypernatremia 5. Respiratory insufficiency. 6. Blood sugar and blood pressure control per primary. 7. Diabetic ketoacidosis. 8. History of anxiety. 9. Depression. 10. Dementia. 11. Chronic pain syndrome. 12. Aspiration risk. 13. Altered mental status. 14. Poor historian. 15. No known allergies. 16. Social history is negative. 17. Family history is noncontributory. 18. MAR was noted. 19. Case was discussed with RN. 20. Notes and records were noted. 21. Skin care protocol. 22. I have reviewed the wounds. I do not think this is her source of sepsis. Continue local wound care protocol. wc - likely colonizer. 23. Continue treatment per Dr. Winn. Subjective Constitutional: Reports: fatigue, other - more alert and less sob but still with mask, Denies: fever HEENT: Reports: congestion Respiratory: Reports: shortness of breath Cardiovascular: Denies: chest pain Gastrointestinal/Abdominal: Denies: nausea, diarrhea Genitourinary: Reports: other - + rowe Neurologic: Denies: headache Psychiatric: Denies: depression Skin: Denies: rash Hematologic: Denies: bleeding Musculoskeletal: Denies: pain Allergies: Coded Allergies: No Known Allergies (Unverified , 08/18/17) Objective Vital Signs Last 24 Hour Vital Signs Date Time Temp Pulse Resp B/P (MAP) Pulse Ox O2 Delivery O2 Flow Rate FiO2 09/01/17 16:02 97.2 92 20 99/59 99 09/01/17 15:17 66 09/01/17 12:07 97.7 72 19 111/61 99 Venturi Mask 55 09/01/17 11:43 73 09/01/17 09:05 76 114/76 09/01/17 09:04 114/76 09/01/17 08:03 76 09/01/17 08:00 97.1 82 20 124/70 100 Venturi Mask 55 09/01/17 04:00 97.7 76 21 114/76 97 Venturi Mask 55 09/01/17 04:00 81 09/01/17 04:00 97.7 85 22 121/72 98 Venturi Mask 55 09/01/17 01:16 98.2 09/01/17 00:00 81 09/01/17 00:00 97.9 100 24 136/65 98 Venturi Mask 55 08/31/17 20:00 87 08/31/17 20:00 98.4 91 22 136/61 98 Venturi Mask 55 08/31/17 18:17 24 94 Venturi Mask 55 Height (Feet): 5 Height (Inches): 2.00 Weight (Pounds): 110 General Appearance: WD/WN HEENT: normocephalic, atraumatic, anicteric, mucous membranes moist, EOMI, pharynx normal, supple, no JVD, other - more alert and less sob, + bm Respiratory/Chest: no accessory muscle use, respiratory distress, crackles/ rales, rhonchi - bilaterally Cardiovascular: normal rate, regular rhythm, no gallop/murmur, no JVD Abdomen: normal bowel sounds, soft, non tender, no organomegaly, non distended Genitourinary: other - + rowe - urine clear Extremities: no cyanosis Skin: no rash 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 The pleural spaces are clear. The heart size is normal. There is a nasogastric tube again demonstrated. Left shoulder hardware is again demonstrated 09/01 - chest x-ray: Impression: Unchanged, over one day, findings as above. Findings: Interstitial opacities again appear prominent bilaterally. Heart size is stable. NG tube is noted and in good position. Impression: No radiographic change. Interstitial opacities nonspecific Microbiology Date/Time Source Procedure Growth Status 08/26/17 03:55 Blood Blood Culture - Final NO GROWTH AFTER 5 DAYS Complete 08/18/17 21:45 Nasal Nares MRSA Culture - Final NO METHICILLIN RESISTANT STAPH AUREUS... Complete 08/30/17 18:30 Stool Clostridium difficile Toxin Assay - Final Complete 08/25/17 15:30 Urine,Clean Catch Urine Culture - Final NO GROWTH AFTER 48 HOURS Complete 08/19/17 07:00 Buttock Left Gram Stain - Final Complete 08/19/17 07:00 Wound Culture - Final Staphylococcus Sp Coag Neg Diphtheroids Complete Microbiology Date/Time Source Procedure Growth Status 08/30/17 18:30 Stool Clostridium difficile Toxin Assay - Final Complete c.diff. - negative Laboratory Tests Test 09/01/17 06:21 White Blood Count 11.7 K/UL (4.8-10.8) H Red Blood Count 2.52 M/UL (4.20-5.40) L Hemoglobin 8.0 G/DL (12.0-16.0) L Hematocrit 25.1 % (37.0-47.0) L Mean Corpuscular Volume 100 FL (80-99) H Mean Corpuscular Hemoglobin 31.7 PG (27.0-31.0) H Mean Corpuscular Hemoglobin Concent 31.8 G/DL (32.0-36.0) L Red Cell Distribution Width 16.4 % (11.6-14.8) H Platelet Count 159 K/UL (150-450) Mean Platelet Volume 8.6 FL (6.5-10.1) Neutrophils (%) (Auto) 83.0 % (45.0-75.0) H Lymphocytes (%) (Auto) 7.8 % (20.0-45.0) L Monocytes (%) (Auto) 6.8 % (1.0-10.0) Eosinophils (%) (Auto) 1.6 % (0.0-3.0) Basophils (%) (Auto) 0.7 % (0.0-2.0) Sodium Level 156 MMOL/L (136-145) H Potassium Level 3.5 MMOL/L (3.5-5.1) Chloride Level 121 MMOL/L (98-107) H Carbon Dioxide Level 26 MMOL/L (21-32) Anion Gap 9 (5-15) Blood Urea Nitrogen 16 mg/dL (7-18) Creatinine 0.6 MG/DL (0.55-1.30) Estimat Glomerular Filtration Rate > 60 mL/min (>60) Glucose Level 140 MG/DL (74-106) H Calcium Level 8.1 MG/DL (8.5-10.1) L Total Bilirubin 0.3 MG/DL (0.2-1.0) Aspartate Amino Transf (AST/SGOT) 41 U/L (15-37) H Alanine Aminotransferase (ALT/SGPT) 26 U/L (12-78) Alkaline Phosphatase 149 U/L (46-116) H Total Protein 5.9 G/DL (6.4-8.2) L Albumin 1.1 G/DL (3.4-5.0) L Globulin 4.8 g/dL Albumin/Globulin Ratio 0.2 (1.0-2.7) L Current Medications Medications (Trade) Dose Ordered Sig/Adonay Route PRN Reason Start Time Stop Time Status Last Admin Dose Admin Acetaminophen (Tylenol) 650 mg Q6H PRN ORAL Mild Pain/Temp > 100.5 08/21/17 20:00 09/18/17 07:59 08/31/17 04:10 Amlodipine Besylate (Norvasc) 10 mg DAILY NG 08/23/17 09:00 09/22/17 08:59 09/01/17 09:05 Ascorbic Acid (Vitamin C) 500 mg DAILY NG 08/23/17 09:00 09/22/17 08:59 09/01/17 09:05 Baclofen (Lioresal) 10 mg THREE TIMES A DAY NG 08/23/17 09:00 09/22/17 08:59 09/01/17 13:15 Citalopram Hydrobromide (celeXA) 20 mg DAILY GT 08/27/17 09:00 09/18/17 08:59 09/01/17 09:04 Clonidine HCl (Catapres) 0.1 mg Q6H PRN NG SBP > 160mmHg 08/23/17 08:30 09/22/17 08:29 Dextrose 1,000 ml @ 125 mls/hr Q8H IV 09/01/17 09:30 10/01/17 09:29 09/01/17 09:08 Dextrose (Dextrose 50%) STAT PRN IV Hypoglycemia 08/21/17 20:00 09/20/17 19:59 08/28/17 09:30 Ferrous Sulfate (Feosol) 300 mg DAILY NG 08/27/17 09:00 09/26/17 08:59 09/01/17 09:05 Insulin Aspart (NovoLOG) EVERY 4 HOURS SUBQ 08/21/17 21:00 09/19/17 08:59 09/01/17 13:17 Insulin Detemir (Levemir) 7 units EVERY 12 HOURS SUBQ 08/31/17 09:00 09/30/17 08:59 09/01/17 09:07 Lansoprazole (Prevacid) 30 mg DAILY NG 08/24/17 09:00 09/23/17 08:59 09/01/17 09:04 Levothyroxine Sodium (Synthroid) 75 mcg ACBREAKFAST NG 08/24/17 06:30 09/23/17 06:29 09/01/17 07:37 Losartan Potassium (Cozaar) 50 mg DAILY NG 08/23/17 09:00 09/22/17 08:59 09/01/17 09:04 Metronidazole (Flagyl) 500 mg EVERY 8 HOURS ORAL 08/28/17 22:00 09/04/17 21:59 09/01/17 13:15 Multivitamins (Multivitamins) 1 tab DAILY ORAL 08/22/17 09:00 09/18/17 08:59 09/01/17 09:05 Ondansetron HCl (Zofran) 4 mg Q6H PRN NG Nausea & Vomiting 08/26/17 15:30 09/18/17 07:59 Oxycodone/ Acetaminophen (Percocet 5-325) 1 tab Q6H PRN ORAL for severe breakthrough pain 08/26/17 15:30 09/02/17 10:44 09/01/17 00:17 Piperacillin Sod/ Tazobactam Sod 3.375 gm/Sodium Chloride 110 ml @ 27.5 mls/hr EVERY 8 HOURS IVPB 08/31/17 22:00 09/07/17 21:59 09/01/17 13:16 Potassium Chloride (KCl 10% 40mEq Oral solution) 40 meq TWICE A DAY NG 08/24/17 18:00 09/23/17 17:59 09/01/17 09:04 Quetiapine Fumarate (SEROquel) 12.5 mg Q12H PRN ORAL Agitation 08/30/17 11:45 09/29/17 11:44 Vancomycin HCl (Vanco rx to dose) 1 ea DAILY PRN MISC Per rx protocol 08/28/17 16:15 09/27/17 16:14 Vancomycin HCl 1 gm/Dextrose 275 ml @ 183.708 mls/hr Q24H IVPB 09/01/17 21:00 09/06/17 20:59 YASIR RUEDA Sep 01, 2017 18:01
[2017-09-01 20:20] VITALS: BP 102/56
--- NOTE | 2017-09-01 20:21 | General Progress Note ---
Assessment/Plan Assessment/Plan Assessment - Respiratory failure - improved - leukocytosis - improved - UTI - Anemia - free water deficit / hypernatremia Recommendations - continue NGT - increase free water IV - abx - optimize resp status - PEG early next week Subjective Allergies: Coded Allergies: No Known Allergies (Unverified , 08/18/17) Subjective above noted no events overnight Na still elevated Objective Last 24 Hour Vital Signs Date Time Temp Pulse Resp B/P (MAP) Pulse Ox O2 Delivery O2 Flow Rate FiO2 09/01/17 19:48 100 Venturi Mask 10.0 45 09/01/17 19:48 Venturi Mask 10.0 45 09/01/17 16:02 97.2 92 20 99/59 99 09/01/17 15:17 66 09/01/17 12:07 97.7 72 19 111/61 99 Venturi Mask 55 09/01/17 11:43 73 09/01/17 09:05 76 114/76 09/01/17 09:04 114/76 09/01/17 08:03 76 09/01/17 08:00 97.1 82 20 124/70 100 Venturi Mask 55 09/01/17 04:00 97.7 76 21 114/76 97 Venturi Mask 55 09/01/17 04:00 81 09/01/17 04:00 97.7 85 22 121/72 98 Venturi Mask 55 09/01/17 01:16 98.2 09/01/17 00:00 81 09/01/17 00:00 97.9 100 24 136/65 98 Venturi Mask 55 Intake and Output 09/01/17 09/02/17 19:00 07:00 Intake Total 2263.0 ml Output Total 450 ml Balance 1813.0 ml Free Water 300 ml IV Total 1428.0 ml Tube Feeding 385 ml Other 150 ml Output Urine Total 450 ml # Bowel Movements 2 Laboratory Tests 09/01/17 06:21: White Blood Count 11.7H, Red Blood Count 2.52L, Hemoglobin 8.0L, Hematocrit 25.1L, Mean Corpuscular Volume 100H, Mean Corpuscular Hemoglobin 31.7H, Mean Corpuscular Hemoglobin Concent 31.8L, Red Cell Distribution Width 16.4H, Platelet Count 159, Mean Platelet Volume 8.6, Neutrophils (%) (Auto) 83.0H, Lymphocytes (%) (Auto) 7.8L, Monocytes (%) (Auto) 6.8, Eosinophils (%) (Auto) 1.6, Basophils (%) (Auto) 0.7, Sodium Level 156H, Potassium Level 3.5, Chloride Level 121H, Carbon Dioxide Level 26, Anion Gap 9, Blood Urea Nitrogen 16, Creatinine 0.6, Estimat Glomerular Filtration Rate > 60, Glucose Level 140H, Calcium Level 8.1L, Total Bilirubin 0.3, Aspartate Amino Transf (AST/SGOT) 41H, Alanine Aminotransferase (ALT/SGPT) 26, Alkaline Phosphatase 149H, Total Protein 5.9L, Albumin 1.1L, Globulin 4.8, Albumin/Globulin Ratio 0.2L Height (Feet): 5 Height (Inches): 2.00 Weight (Pounds): 110 Objective Thin AA woman NCAT (+) NGT and face mask O2 Neck supple Chest: b/l coarse BS RRR soft ND NT no edema ERIKA ESPINOSA Sep 01, 2017 20:21
[2017-09-01] MEDS ORDERED: Vancomycin 1 GM in NS 275 ML IVPB SCH (21:00)
[2017-09-01] MEDS: Vancomycin 1gm/D5W 275ml IVPB SCH ×2 (21:33)
[2017-09-02] VITALS: BP 117/59
[2017-09-02 04:00] VITALS: BP 126/62
[2017-09-02] MEDS: NovoLOG Insulin Flexpen SUBQ SCH ×5 (05:00→21:13)
[2017-09-02] MEDS: Piperacillin/Tazobactam 3.375 GM in NS 110 ML IVPB SCH ×3 (06:52→22:20)
[2017-09-02 06:57] LABS: ANION GAP 7 (5-15); BLOOD UREA NITROGEN 16 mg/dL (7-18); CALCIUM 7.8 MG/DL (8.5-10.1); CARBON DIOXIDE 25 MMOL/L (21-32); CHLORIDE 109 MMOL/L (98-107); CREATININE 0.7 MG/DL (0.55-1.30); POTASSIUM 3.4 MMOL/L (3.5-5.1); SODIUM 141 MMOL/L (136-145)
[2017-09-02 08:00] VITALS: BP 122/61
[2017-09-02] MEDS: Levemir Flexpen SUBQ SCH ×2 (09:09→21:12)
[2017-09-02] MEDS: Losartan 50mg tab NG SCH (09:10)
[2017-09-02] MEDS: Citalopram Hydrobromide 10mg Tab GT SCH (09:10)
[2017-09-02] MEDS: Ferrous Sulfate 300 MG/5 ML UDC NG SCH (09:11)
[2017-09-02] MEDS: KCl 10% 40mEq/30ml liquid NG SCH ×2 (09:11→17:55)
[2017-09-02] MEDS: Ascorbic Acid 500mg tab NG SCH (09:11)
--- NOTE | 2017-09-02 10:47 | General Progress Note ---
Assessment/Plan Assessment/Plan Assessment - Respiratory failure - improved - leukocytosis - improved - UTI - Anemia - free water deficit / hypernatremia Recommendations - continue NGT - increase free water IV - abx - optimize resp status - PEG early next week Subjective ROS Limited/Unobtainable: No Allergies: Coded Allergies: No Known Allergies (Unverified , 08/18/17) Objective Last 24 Hour Vital Signs Date Time Temp Pulse Resp B/P (MAP) Pulse Ox O2 Delivery O2 Flow Rate FiO2 09/02/17 10:03 26 94 Nasal Cannula 2.0 09/02/17 09:11 74 122/61 09/02/17 09:10 122/61 09/02/17 09:00 24 96 Nasal Cannula 3.0 09/02/17 08:46 Nasal Cannula 3.0 09/02/17 08:44 95 Nasal Cannula 3.0 09/02/17 08:12 76 09/02/17 08:00 98.4 74 22 122/61 98 Venturi Mask 35 09/02/17 04:00 97.0 77 24 126/62 99 Venturi Mask 09/02/17 04:00 76 09/02/17 00:00 97.0 72 24 117/59 97 Venturi Mask 09/02/17 00:00 75 09/01/17 20:20 98.4 69 24 102/56 100 Venturi Mask 09/01/17 20:00 70 09/01/17 19:48 100 Venturi Mask 10.0 45 09/01/17 19:48 Venturi Mask 10.0 45 09/01/17 16:02 97.2 92 20 99/59 99 09/01/17 15:17 66 09/01/17 12:07 97.7 72 19 111/61 99 Venturi Mask 55 09/01/17 11:43 73 Intake and Output 09/02/17 09/03/17 19:00 07:00 Intake Total 332.5 ml Balance 332.5 ml IV Total 332.5 ml Laboratory Tests 09/02/17 04:30: Sodium Level 141#, Potassium Level 3.4L, Chloride Level 109H, Carbon Dioxide Level 25, Anion Gap 7, Blood Urea Nitrogen 16, Creatinine 0.7, Estimat Glomerular Filtration Rate > 60, Glucose Level 62L, Calcium Level 7.8L Height (Feet): 5 Height (Inches): 2.00 Weight (Pounds): 110 General Appearance: no apparent distress EENT: normal ENT inspection Neck: supple Cardiovascular: normal rate Respiratory/Chest: decreased breath sounds Abdomen: normal bowel sounds, non tender, soft Extremities: non-tender DEVIN ADAM Sep 02, 2017 10:47
[2017-09-02] MEDS ORDERED: KCl 10% 20 mEq/15ml liquid NG ONE (11:00)
[2017-09-02 12:00] VITALS: BP 109/69
[2017-09-02] MEDS: Acetaminophen 500mg (ES) tab ORAL PRN (12:45)
[2017-09-02 16:00] VITALS: BP 111/56
[2017-09-02] MEDS: oxyCODONE HCL/Acetaminophen 5/325mg ORAL PRN (16:19)
--- NOTE | 2017-09-02 17:34 | Infectious Diseases Prog Note ---
Assessment/Plan Assessment/Plan ASSESSMENT AND PLAN: 1. sepsis, klebsiella uti, possible pna, leukocytosis and fevers, c.diff. negative - clinically better, more alert and seems less sob - leukocytosis better and fever spike noted, mild leukocytosis noted - continue zosyn, vancomycin - day # 5/10, discontinue flagyl - check sc if possible, labs, chest x-ray - peg planned - recheck cultures 2. The patient has history of diabetes. 3. Hypertension. 4. Anemia, hypernatremia 5. Respiratory insufficiency. 6. Blood sugar and blood pressure control per primary. 7. Diabetic ketoacidosis. 8. History of anxiety. 9. Depression. 10. Dementia. 11. Chronic pain syndrome. 12. Aspiration risk. 13. Altered mental status. 14. Poor historian. 15. No known allergies. 16. Social history is negative. 17. Family history is noncontributory. 18. MAR was noted. 19. Case was discussed with RN. 20. Notes and records were noted. 21. Skin care protocol. 22. I have reviewed the wounds. I do not think this is her source of sepsis. Continue local wound care protocol. wc - likely colonizer. 23. Continue treatment per Dr. Winn. Subjective Constitutional: Reports: fever HEENT: Reports: congestion - less Respiratory: Reports: shortness of breath - less Cardiovascular: Denies: chest pain Gastrointestinal/Abdominal: Denies: nausea, vomiting, diarrhea Genitourinary: Reports: other - + rowe Neurologic: Denies: headache Psychiatric: Denies: depression Skin: Denies: rash Hematologic: Denies: bleeding Musculoskeletal: Denies: pain Allergies: Coded Allergies: No Known Allergies (Unverified , 08/18/17) Objective Vital Signs Last 24 Hour Vital Signs Date Time Temp Pulse Resp B/P (MAP) Pulse Ox O2 Delivery O2 Flow Rate FiO2 09/02/17 13:44 98.9 09/02/17 12:00 102.2 84 18 109/69 94 Nasal Cannula 2.0 09/02/17 12:00 82 09/02/17 10:03 26 94 Nasal Cannula 2.0 09/02/17 09:11 74 122/61 09/02/17 09:10 122/61 09/02/17 09:00 24 96 Nasal Cannula 3.0 09/02/17 08:46 Nasal Cannula 3.0 09/02/17 08:44 95 Nasal Cannula 3.0 09/02/17 08:12 76 09/02/17 08:00 98.4 74 22 122/61 98 Venturi Mask 35 09/02/17 04:00 97.0 77 24 126/62 99 Venturi Mask 09/02/17 04:00 76 09/02/17 00:00 97.0 72 24 117/59 97 Venturi Mask 09/02/17 00:00 75 09/01/17 20:20 98.4 69 24 102/56 100 Venturi Mask 09/01/17 20:00 70 09/01/17 19:48 100 Venturi Mask 10.0 45 09/01/17 19:48 Venturi Mask 10.0 45 Height (Feet): 5 Height (Inches): 2.00 Weight (Pounds): 110 General Appearance: no acute distress HEENT: normocephalic, atraumatic, anicteric, mucous membranes moist, EOMI, pharynx normal, supple, no JVD Respiratory/Chest: no accessory muscle use, crackles/rales, rhonchi - bilaterally Cardiovascular: normal rate, regular rhythm, no gallop/murmur, no JVD Abdomen: normal bowel sounds, soft, non tender, no organomegaly, non distended Genitourinary: other - + rowe - urine slt cloudy Extremities: no cyanosis Skin: no rash 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 The pleural spaces are clear. The heart size is normal. There is a nasogastric tube again demonstrated. Left shoulder hardware is again demonstrated 09/01 - chest x-ray: Impression: Unchanged, over one day, findings as above. Findings: Interstitial opacities again appear prominent bilaterally. Heart size is stable. NG tube is noted and in good position. Impression: No radiographic change. Interstitial opacities nonspecific Microbiology Date/Time Source Procedure Growth Status 08/26/17 03:55 Blood Blood Culture - Final NO GROWTH AFTER 5 DAYS Complete 08/18/17 21:45 Nasal Nares MRSA Culture - Final NO METHICILLIN RESISTANT STAPH AUREUS... Complete 08/30/17 18:30 Stool Clostridium difficile Toxin Assay - Final Complete 08/25/17 15:30 Urine,Clean Catch Urine Culture - Final NO GROWTH AFTER 48 HOURS Complete 08/19/17 07:00 Buttock Left Gram Stain - Final Complete 08/19/17 07:00 Wound Culture - Final Staphylococcus Sp Coag Neg Diphtheroids Complete Microbiology Date/Time Source Procedure Growth Status 08/30/17 18:30 Stool Clostridium difficile Toxin Assay - Final Complete Laboratory Tests Test 09/02/17 04:30 Sodium Level 141 MMOL/L (136-145) # Potassium Level 3.4 MMOL/L (3.5-5.1) L Chloride Level 109 MMOL/L (98-107) H Carbon Dioxide Level 25 MMOL/L (21-32) Anion Gap 7 (5-15) Blood Urea Nitrogen 16 mg/dL (7-18) Creatinine 0.7 MG/DL (0.55-1.30) Estimat Glomerular Filtration Rate > 60 mL/min (>60) Glucose Level 62 MG/DL (74-106) L Calcium Level 7.8 MG/DL (8.5-10.1) L Current Medications Medications (Trade) Dose Ordered Sig/Adonay Route PRN Reason Start Time Stop Time Status Last Admin Dose Admin Acetaminophen (Tylenol) 650 mg Q6H PRN ORAL Mild Pain/Temp > 100.5 08/21/17 20:00 09/18/17 07:59 09/02/17 12:45 Amlodipine Besylate (Norvasc) 10 mg DAILY NG 08/23/17 09:00 09/22/17 08:59 09/02/17 09:11 Ascorbic Acid (Vitamin C) 500 mg DAILY NG 08/23/17 09:00 09/22/17 08:59 09/02/17 09:11 Baclofen (Lioresal) 10 mg THREE TIMES A DAY NG 08/23/17 09:00 09/22/17 08:59 09/02/17 12:43 Citalopram Hydrobromide (celeXA) 20 mg DAILY GT 08/27/17 09:00 09/18/17 08:59 09/02/17 09:10 Clonidine HCl (Catapres) 0.1 mg Q6H PRN NG SBP > 160mmHg 08/23/17 08:30 09/22/17 08:29 Dextrose 1,000 ml @ 125 mls/hr Q8H IV 09/01/17 09:30 10/01/17 09:29 09/02/17 12:43 Dextrose (Dextrose 50%) STAT PRN IV Hypoglycemia 08/21/17 20:00 09/20/17 19:59 09/02/17 06:52 Ferrous Sulfate (Feosol) 300 mg DAILY NG 08/27/17 09:00 09/26/17 08:59 09/02/17 09:11 Insulin Aspart (NovoLOG) EVERY 4 HOURS SUBQ 08/21/17 21:00 09/19/17 08:59 09/02/17 12:45 Insulin Detemir (Levemir) 7 units EVERY 12 HOURS SUBQ 08/31/17 09:00 09/30/17 08:59 09/02/17 09:09 Lansoprazole (Prevacid) 30 mg DAILY NG 08/24/17 09:00 09/23/17 08:59 09/02/17 09:10 Levothyroxine Sodium (Synthroid) 75 mcg ACBREAKFAST NG 08/24/17 06:30 09/23/17 06:29 09/02/17 06:57 Losartan Potassium (Cozaar) 50 mg DAILY NG 08/23/17 09:00 09/22/17 08:59 09/02/17 09:10 Multivitamins (Multivitamins) 1 tab DAILY ORAL 08/22/17 09:00 09/18/17 08:59 09/02/17 09:11 Ondansetron HCl (Zofran) 4 mg Q6H PRN NG Nausea & Vomiting 08/26/17 15:30 09/18/17 07:59 Oxycodone/ Acetaminophen (Percocet 5-325) 1 tab EVERY 6 HOURS PRN ORAL Severe Pain (Pain Scale 7-10) 09/02/17 15:45 09/09/17 15:44 09/02/17 16:19 Piperacillin Sod/ Tazobactam Sod 3.375 gm/Sodium Chloride 110 ml @ 27.5 mls/hr EVERY 8 HOURS IVPB 08/31/17 22:00 09/07/17 21:59 09/02/17 13:59 Potassium Chloride (KCl 10% 40mEq Oral solution) 40 meq TWICE A DAY NG 08/24/17 18:00 09/23/17 17:59 09/02/17 09:11 Quetiapine Fumarate (SEROquel) 12.5 mg Q12H PRN ORAL Agitation 08/30/17 11:45 09/29/17 11:44 Vancomycin HCl (Vanco rx to dose) 1 ea DAILY PRN MISC Per rx protocol 08/28/17 16:15 09/27/17 16:14 Vancomycin HCl 1 gm/Dextrose 275 ml @ 183.708 mls/hr Q24H IVPB 09/01/17 21:00 09/06/17 20:59 09/01/17 21:33 YASIR RUEDA Sep 02, 2017 17:34
--- NOTE | 2017-09-02 18:21 | Pulmonology Progress Note ---
Assessment/Plan Assessment/Plan DKA, resolved DM w hypoglycemia, now stable UTI sepsis htn anxiety, depression chronic pain on meds AMS, improved but still confused lactic acidosis respiratory failure, interstitial edema Hypernatremia, dehydration PEG canceled due to high Na Abx per ID DM rx per Dr Andrade rx UTI, sepsis; cultures neg disc w RN check RA sat DC after PEG placed Subjective ROS Limited/Unobtainable: Yes Allergies: Coded Allergies: No Known Allergies (Unverified , 08/18/17) Subjective less confused this afternoon but still in restraints ngt in place adn tolerating feed no cp nv or bleeding nonambulatory no fever noted positive uop Objective Last 24 Hour Vital Signs Date Time Temp Pulse Resp B/P (MAP) Pulse Ox O2 Delivery O2 Flow Rate FiO2 09/02/17 16:00 97.5 78 18 111/56 93 Nasal Cannula 2.0 09/02/17 13:44 98.9 09/02/17 12:00 102.2 84 18 109/69 94 Nasal Cannula 2.0 09/02/17 12:00 82 09/02/17 10:03 26 94 Nasal Cannula 2.0 09/02/17 09:11 74 122/61 09/02/17 09:10 122/61 09/02/17 09:00 24 96 Nasal Cannula 3.0 09/02/17 08:46 Nasal Cannula 3.0 09/02/17 08:44 95 Nasal Cannula 3.0 09/02/17 08:12 76 09/02/17 08:00 98.4 74 22 122/61 98 Venturi Mask 35 09/02/17 04:00 97.0 77 24 126/62 99 Venturi Mask 09/02/17 04:00 76 09/02/17 00:00 97.0 72 24 117/59 97 Venturi Mask 09/02/17 00:00 75 09/01/17 20:20 98.4 69 24 102/56 100 Venturi Mask 09/01/17 20:00 70 09/01/17 19:48 100 Venturi Mask 10.0 45 09/01/17 19:48 Venturi Mask 10.0 45 Intake and Output 09/02/17 09/03/17 19:00 07:00 Intake Total 1102.92 ml Output Total 400 ml Balance 702.92 ml IV Total 1047.92 ml Tube Feeding 55 ml Output Urine Total 400 ml General Appearance: cachetic HEENT: atraumatic, anicteric Respiratory/Chest: rhonchi Cardiovascular: normal rate, regular rhythm Abdomen: soft, non tender, no organomegaly Extremities: no cyanosis Skin: no rash Neurologic/Psychiatric: disoriented Lymphatic: no neck adenopathy Musculoskeletal: normal muscle bulk Microbiology Date/Time Source Procedure Growth Status 08/30/17 18:30 Stool Clostridium difficile Toxin Assay - Final Complete Laboratory Tests 09/02/17 04:30: Sodium Level 141#, Potassium Level 3.4L, Chloride Level 109H, Carbon Dioxide Level 25, Anion Gap 7, Blood Urea Nitrogen 16, Creatinine 0.7, Estimat Glomerular Filtration Rate > 60, Glucose Level 62L, Calcium Level 7.8L Current Medications Medications (Trade) Dose Ordered Sig/Adonay Route PRN Reason Start Time Stop Time Status Last Admin Dose Admin Acetaminophen (Tylenol) 650 mg Q6H PRN ORAL Mild Pain/Temp > 100.5 08/21/17 20:00 09/18/17 07:59 09/02/17 12:45 Amlodipine Besylate (Norvasc) 10 mg DAILY NG 08/23/17 09:00 09/22/17 08:59 09/02/17 09:11 Ascorbic Acid (Vitamin C) 500 mg DAILY NG 08/23/17 09:00 09/22/17 08:59 09/02/17 09:11 Baclofen (Lioresal) 10 mg THREE TIMES A DAY NG 08/23/17 09:00 09/22/17 08:59 09/02/17 17:55 Citalopram Hydrobromide (celeXA) 20 mg DAILY GT 08/27/17 09:00 09/18/17 08:59 09/02/17 09:10 Clonidine HCl (Catapres) 0.1 mg Q6H PRN NG SBP > 160mmHg 08/23/17 08:30 09/22/17 08:29 Dextrose 1,000 ml @ 125 mls/hr Q8H IV 09/01/17 09:30 10/01/17 09:29 09/02/17 12:43 Dextrose (Dextrose 50%) STAT PRN IV Hypoglycemia 08/21/17 20:00 09/20/17 19:59 09/02/17 06:52 Ferrous Sulfate (Feosol) 300 mg DAILY NG 08/27/17 09:00 09/26/17 08:59 09/02/17 09:11 Insulin Aspart (NovoLOG) EVERY 4 HOURS SUBQ 08/21/17 21:00 09/19/17 08:59 09/02/17 17:55 Insulin Detemir (Levemir) 7 units EVERY 12 HOURS SUBQ 08/31/17 09:00 09/30/17 08:59 09/02/17 09:09 Lansoprazole (Prevacid) 30 mg DAILY NG 08/24/17 09:00 09/23/17 08:59 09/02/17 09:10 Levothyroxine Sodium (Synthroid) 75 mcg ACBREAKFAST NG 08/24/17 06:30 09/23/17 06:29 09/02/17 06:57 Losartan Potassium (Cozaar) 50 mg DAILY NG 08/23/17 09:00 09/22/17 08:59 09/02/17 09:10 Multivitamins (Multivitamins) 1 tab DAILY ORAL 08/22/17 09:00 09/18/17 08:59 09/02/17 09:11 Ondansetron HCl (Zofran) 4 mg Q6H PRN NG Nausea & Vomiting 08/26/17 15:30 09/18/17 07:59 Oxycodone/ Acetaminophen (Percocet 5-325) 1 tab EVERY 6 HOURS PRN ORAL Severe Pain (Pain Scale 7-10) 09/02/17 15:45 09/09/17 15:44 09/02/17 16:19 Piperacillin Sod/ Tazobactam Sod 3.375 gm/Sodium Chloride 110 ml @ 27.5 mls/hr EVERY 8 HOURS IVPB 08/31/17 22:00 09/07/17 21:59 09/02/17 13:59 Potassium Chloride (KCl 10% 40mEq Oral solution) 40 meq TWICE A DAY NG 08/24/17 18:00 09/23/17 17:59 09/02/17 17:55 Quetiapine Fumarate (SEROquel) 12.5 mg Q12H PRN ORAL Agitation 08/30/17 11:45 09/29/17 11:44 Vancomycin HCl (Vanco rx to dose) 1 ea DAILY PRN MISC Per rx protocol 08/28/17 16:15 09/27/17 16:14 Vancomycin HCl 1 gm/Dextrose 275 ml @ 183.708 mls/hr Q24H IVPB 09/01/17 21:00 09/06/17 20:59 09/01/17 21:33 JERO CALI DO Sep 02, 2017 18:21
[2017-09-02 20:00] VITALS: BP 106/57
[2017-09-02] MEDS: Vancomycin 1gm/D5W 275ml IVPB SCH ×2 (21:10)
[2017-09-03] VITALS: BP 114/62
[2017-09-03] MEDS: oxyCODONE HCL/Acetaminophen 5/325mg ORAL PRN ×2 (01:08→19:38)
[2017-09-03] MEDS: NovoLOG Insulin Flexpen SUBQ SCH ×6 (01:08→21:24)
[2017-09-03 04:00] VITALS: BP 116/58
[2017-09-03] MEDS: Piperacillin/Tazobactam 3.375 GM in NS 110 ML IVPB SCH ×3 (05:15→22:43)
[2017-09-03 05:22] LABS: BASOPHILS % (AUTO) 0.6 % (0.0-2.0); EOSINOPHILS % (AUTO) 1.9 % (0.0-3.0); HEMOGLOBIN 8.3 G/DL (12.0-16.0); LYMPHOCYTES % (AUTO) 9.9 % (20.0-45.0); MEAN CORPUSCULAR VOLUME 98 FL (80-99); MONOCYTES % (AUTO) 4.4 % (1.0-10.0); NEUTROPHILS % (AUTO) 83.1 % (45.0-75.0); PLATELET COUNT 145 K/UL (150-450); RED BLOOD COUNT 2.55 M/UL (4.20-5.40); RED CELL DISTRIBUTION WIDTH 15.7 % (11.6-14.8); WHITE BLOOD COUNT 11.2 K/UL (4.8-10.8)
[2017-09-03 05:25] LABS: ANION GAP 9 (5-15); BLOOD UREA NITROGEN 10 mg/dL (7-18); CALCIUM 7.5 MG/DL (8.5-10.1); CARBON DIOXIDE 22 MMOL/L (21-32); CHLORIDE 108 MMOL/L (98-107); CREATININE 0.7 MG/DL (0.55-1.30); POTASSIUM 3.9 MMOL/L (3.5-5.1); SODIUM 139 MMOL/L (136-145)
--- NOTE | 2017-09-03 06:48 | Pulmonology Progress Note ---
Assessment/Plan Assessment/Plan DKA, resolved DM w hypoglycemia, now stable UTI sepsis htn anxiety, depression chronic pain on meds AMS, improved but still confused lactic acidosis respiratory failure, interstitial edema Hypernatremia, dehydration PEG canceled due to high Na, but Na better today 139, will dw GI to schedule Abx per ID DM rx per Dr Andrade rx UTI, sepsis; cultures neg disc w RN check RA sat DC after PEG placed Subjective ROS Limited/Unobtainable: Yes Allergies: Coded Allergies: No Known Allergies (Unverified , 08/18/17) Subjective sleeping thsi am no distress in restraints ngt in place and tolerating feed no cp nv or bleeding nonambulatory no fever noted positive uop Objective Last 24 Hour Vital Signs Date Time Temp Pulse Resp B/P (MAP) Pulse Ox O2 Delivery O2 Flow Rate FiO2 09/03/17 04:00 99.1 70 20 116/58 95 Nasal Cannula 2.0 09/03/17 04:00 77 09/03/17 00:00 77 09/03/17 00:00 97.7 76 20 114/62 94 Nasal Cannula 2.0 09/02/17 21:04 Nasal Cannula 3.0 32 09/02/17 21:04 94 Nasal Cannula 3.0 32 09/02/17 20:00 75 09/02/17 20:00 98.0 72 20 106/57 96 Nasal Cannula 2.0 09/02/17 16:00 97.5 78 18 111/56 93 Nasal Cannula 2.0 09/02/17 13:44 98.9 09/02/17 12:00 102.2 84 18 109/69 94 Nasal Cannula 2.0 09/02/17 12:00 82 09/02/17 10:03 26 94 Nasal Cannula 2.0 09/02/17 09:11 74 122/61 09/02/17 09:10 122/61 09/02/17 09:00 24 96 Nasal Cannula 3.0 09/02/17 08:46 Nasal Cannula 3.0 09/02/17 08:44 95 Nasal Cannula 3.0 09/02/17 08:12 76 09/02/17 08:00 98.4 74 22 122/61 98 Venturi Mask 35 General Appearance: cachetic HEENT: atraumatic, anicteric Respiratory/Chest: rhonchi Cardiovascular: normal rate, regular rhythm Extremities: no edema Skin: no rash, no lesions Neurologic/Psychiatric: disoriented Laboratory Tests 09/03/17 04:45: White Blood Count 11.2H, Red Blood Count 2.55L, Hemoglobin 8.3L, Hematocrit 25.0L, Mean Corpuscular Volume 98, Mean Corpuscular Hemoglobin 32.7H, Mean Corpuscular Hemoglobin Concent 33.3, Red Cell Distribution Width 15.7H, Platelet Count 145L, Mean Platelet Volume 9.3, Neutrophils (%) (Auto) 83.1H, Lymphocytes (%) (Auto) 9.9L, Monocytes (%) (Auto) 4.4, Eosinophils (%) (Auto) 1.9, Basophils (%) (Auto) 0.6, Sodium Level 139, Potassium Level 3.9, Chloride Level 108H, Carbon Dioxide Level 22, Anion Gap 9, Blood Urea Nitrogen 10, Creatinine 0.7, Estimat Glomerular Filtration Rate > 60, Glucose Level 212#H, Calcium Level 7.5L Current Medications Medications (Trade) Dose Ordered Sig/Adonay Route PRN Reason Start Time Stop Time Status Last Admin Dose Admin Acetaminophen (Tylenol) 650 mg Q6H PRN ORAL Mild Pain/Temp > 100.5 08/21/17 20:00 09/18/17 07:59 09/02/17 12:45 Amlodipine Besylate (Norvasc) 10 mg DAILY NG 08/23/17 09:00 09/22/17 08:59 09/02/17 09:11 Ascorbic Acid (Vitamin C) 500 mg DAILY NG 08/23/17 09:00 09/22/17 08:59 09/02/17 09:11 Baclofen (Lioresal) 10 mg THREE TIMES A DAY NG 08/23/17 09:00 09/22/17 08:59 09/02/17 17:55 Citalopram Hydrobromide (celeXA) 20 mg DAILY GT 08/27/17 09:00 09/18/17 08:59 09/02/17 09:10 Clonidine HCl (Catapres) 0.1 mg Q6H PRN NG SBP > 160mmHg 08/23/17 08:30 09/22/17 08:29 Dextrose 1,000 ml @ 125 mls/hr Q8H IV 09/01/17 09:30 10/01/17 09:29 09/03/17 02:03 Dextrose (Dextrose 50%) STAT PRN IV Hypoglycemia 08/21/17 20:00 09/20/17 19:59 09/02/17 06:52 Ferrous Sulfate (Feosol) 300 mg DAILY NG 08/27/17 09:00 09/26/17 08:59 09/02/17 09:11 Insulin Aspart (NovoLOG) EVERY 4 HOURS SUBQ 08/21/17 21:00 09/19/17 08:59 09/03/17 05:19 Insulin Detemir (Levemir) 10 units EVERY 12 HOURS SUBQ 09/03/17 09:00 10/03/17 08:59 Lansoprazole (Prevacid) 30 mg DAILY NG 08/24/17 09:00 09/23/17 08:59 09/02/17 09:10 Levothyroxine Sodium (Synthroid) 75 mcg ACBREAKFAST NG 08/24/17 06:30 09/23/17 06:29 09/03/17 05:25 Losartan Potassium (Cozaar) 50 mg DAILY NG 08/23/17 09:00 09/22/17 08:59 09/02/17 09:10 Multivitamins (Multivitamins) 1 tab DAILY ORAL 08/22/17 09:00 09/18/17 08:59 09/02/17 09:11 Ondansetron HCl (Zofran) 4 mg Q6H PRN NG Nausea & Vomiting 08/26/17 15:30 09/18/17 07:59 Oxycodone/ Acetaminophen (Percocet 5-325) 1 tab EVERY 6 HOURS PRN ORAL Severe Pain (Pain Scale 7-10) 09/02/17 15:45 09/09/17 15:44 09/03/17 01:08 Piperacillin Sod/ Tazobactam Sod 3.375 gm/Sodium Chloride 110 ml @ 27.5 mls/hr EVERY 8 HOURS IVPB 08/31/17 22:00 09/07/17 21:59 09/03/17 05:15 Potassium Chloride (KCl 10% 40mEq Oral solution) 40 meq TWICE A DAY NG 08/24/17 18:00 09/23/17 17:59 09/02/17 17:55 Quetiapine Fumarate (SEROquel) 12.5 mg Q12H PRN ORAL Agitation 08/30/17 11:45 09/29/17 11:44 Vancomycin HCl (Vanco rx to dose) 1 ea DAILY PRN MISC Per rx protocol 08/28/17 16:15 09/27/17 16:14 Vancomycin HCl 1 gm/Dextrose 275 ml @ 183.708 mls/hr Q24H IVPB 09/01/17 21:00 09/06/17 20:59 09/02/17 21:10 JERO CALI DO Sep 03, 2017 06:48
[2017-09-03 08:00] VITALS: BP 129/50
[2017-09-03 08:18] LABS: APPEARANCE,URINE SLIGHTLY CLOUDY; BILIRUBIN, URINE NEGATIVE (NEGATIVE); COLOR,URINE PALE YELLOW; GLUCOSE, URINE (UA) 3+ (NEGATIVE); KETONES,URINE NEGATIVE (NEGATIVE); LEUKOCYTE ESTERASE ,URINE 1+ (NEGATIVE); NITRITE,URINE NEGATIVE (NEGATIVE); PH,URINE 5 (4.5-8.0); PROTEIN,URINE NEGATIVE (NEGATIVE); UROBILINOGEN,URINE NORMAL MG/DL (0.0-1.0)
[2017-09-03] MEDS: Ferrous Sulfate 300 MG/5 ML UDC NG SCH (08:36)
[2017-09-03] MEDS: Citalopram Hydrobromide 10mg Tab GT SCH (08:36)
[2017-09-03] MEDS: KCl 10% 40mEq/30ml liquid NG SCH ×2 (08:37→17:05)
[2017-09-03] MEDS: Ascorbic Acid 500mg tab NG SCH (08:37)
--- NOTE | 2017-09-03 08:47 | Diagnostic Imaging Report ---
Indication: Nasogastric tube placement Comparison: 08/31/2013 abdomen one view. Findings: Single view of the upper abdomen/lower chest is obtained. Nasogastric tube is seen with distal end in the expected region of the stomach. There is a non-specific bowel gas pattern. Diffuse infiltrates are seen throughout both lungs, not significantly changed. Impression: Nasogastric tube with distal end in the stomach. Diffuse infiltrate throughout both lungs, unchanged.
[2017-09-03] MEDS ORDERED: Levemir Flexpen SUBQ SCH (09:00)
[2017-09-03] MEDS: Losartan 50mg tab NG SCH (09:30)
[2017-09-03] MEDS ORDERED: ELIQUIS2.5 MG PO (11:39)
[2017-09-03 12:00] VITALS: BP 123/64
[2017-09-03 16:00] VITALS: BP 122/74
--- NOTE | 2017-09-03 16:51 | Infectious Diseases Prog Note ---
Assessment/Plan Assessment/Plan ASSESSMENT AND PLAN: 1. sepsis, klebsiella uti, possible pna, leukocytosis and fevers, c.diff. negative - clinically better, more alert and seems less sob - leukocytosis better and fever spike noted, mild leukocytosis noted - continue zosyn, vancomycin - day # 6/10, discontinue flagyl - check sc if possible, labs, chest x-ray - peg planned - recheck cultures 2. The patient has history of diabetes. 3. Hypertension. 4. Anemia, hypernatremia 5. Respiratory insufficiency. 6. Blood sugar and blood pressure control per primary. 7. Diabetic ketoacidosis. 8. History of anxiety. 9. Depression. 10. Dementia. 11. Chronic pain syndrome. 12. Aspiration risk. 13. Altered mental status. 14. Poor historian. 15. No known allergies. 16. Social history is negative. 17. Family history is noncontributory. 18. MAR was noted. 19. Case was discussed with RN. 20. Notes and records were noted. 21. Skin care protocol. 22. I have reviewed the wounds. I do not think this is her source of sepsis. Continue local wound care protocol. wc - likely colonizer. 23. Continue treatment per Dr. Winn. Subjective HEENT: Reports: congestion Respiratory: Reports: shortness of breath Cardiovascular: Reports: chest pain Gastrointestinal/Abdominal: Denies: nausea, vomiting, diarrhea Genitourinary: Reports: other - + rowe - urine cloudy Neurologic: Denies: headache Psychiatric: Denies: depression Skin: Denies: rash Hematologic: Denies: bleeding Musculoskeletal: Denies: pain Allergies: Coded Allergies: No Known Allergies (Unverified , 08/18/17) Objective Vital Signs Last 24 Hour Vital Signs Date Time Temp Pulse Resp B/P (MAP) Pulse Ox O2 Delivery O2 Flow Rate FiO2 09/03/17 12:00 98.2 80 20 123/64 98 Nasal Cannula 4.0 09/03/17 11:56 80 09/03/17 09:30 116/58 09/03/17 09:30 77 116/58 09/03/17 08:00 85 09/03/17 08:00 97.8 82 22 129/50 94 Nasal Cannula 2.0 09/03/17 07:21 95 Nasal Cannula 2.0 28 09/03/17 07:21 Nasal Cannula 2.0 28 09/03/17 04:00 99.1 70 20 116/58 95 Nasal Cannula 2.0 09/03/17 04:00 77 09/03/17 00:00 77 09/03/17 00:00 97.7 76 20 114/62 94 Nasal Cannula 2.0 09/02/17 21:04 Nasal Cannula 3.0 32 09/02/17 21:04 94 Nasal Cannula 3.0 32 09/02/17 20:00 75 09/02/17 20:00 98.0 72 20 106/57 96 Nasal Cannula 2.0 Height (Feet): 5 Height (Inches): 2.00 Weight (Pounds): 113 General Appearance: no acute distress, other - less sob HEENT: normocephalic, atraumatic, anicteric, mucous membranes moist, pharynx normal, supple, no JVD, other - ngt Respiratory/Chest: crackles/rales, rhonchi - bilaterally Cardiovascular: normal rate, regular rhythm, no gallop/murmur, no JVD Abdomen: normal bowel sounds, soft, non tender, no organomegaly, non distended Genitourinary: other - + rowe - urine clear Extremities: no cyanosis Skin: no rash 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 The pleural spaces are clear. The heart size is normal. There is a nasogastric tube again demonstrated. Left shoulder hardware is again demonstrated 09/01 - chest x-ray: Impression: Unchanged, over one day, findings as above. Findings: Interstitial opacities again appear prominent bilaterally. Heart size is stable. NG tube is noted and in good position. Impression: No radiographic change. Interstitial opacities nonspecific Microbiology Date/Time Source Procedure Growth Status 08/26/17 03:55 Blood Blood Culture - Final NO GROWTH AFTER 5 DAYS Complete 08/18/17 21:45 Nasal Nares MRSA Culture - Final NO METHICILLIN RESISTANT STAPH AUREUS... Complete 08/30/17 18:30 Stool Clostridium difficile Toxin Assay - Final Complete 08/25/17 15:30 Urine,Clean Catch Urine Culture - Final NO GROWTH AFTER 48 HOURS Complete 08/19/17 07:00 Buttock Left Gram Stain - Final Complete 08/19/17 07:00 Wound Culture - Final Staphylococcus Sp Coag Neg Diphtheroids Complete Laboratory Tests Test 09/03/17 04:45 09/03/17 05:40 White Blood Count 11.2 K/UL (4.8-10.8) H Red Blood Count 2.55 M/UL (4.20-5.40) L Hemoglobin 8.3 G/DL (12.0-16.0) L Hematocrit 25.0 % (37.0-47.0) L Mean Corpuscular Volume 98 FL (80-99) Mean Corpuscular Hemoglobin 32.7 PG (27.0-31.0) H Mean Corpuscular Hemoglobin Concent 33.3 G/DL (32.0-36.0) Red Cell Distribution Width 15.7 % (11.6-14.8) H Platelet Count 145 K/UL (150-450) L Mean Platelet Volume 9.3 FL (6.5-10.1) Neutrophils (%) (Auto) 83.1 % (45.0-75.0) H Lymphocytes (%) (Auto) 9.9 % (20.0-45.0) L Monocytes (%) (Auto) 4.4 % (1.0-10.0) Eosinophils (%) (Auto) 1.9 % (0.0-3.0) Basophils (%) (Auto) 0.6 % (0.0-2.0) Sodium Level 139 MMOL/L (136-145) Potassium Level 3.9 MMOL/L (3.5-5.1) Chloride Level 108 MMOL/L (98-107) H Carbon Dioxide Level 22 MMOL/L (21-32) Anion Gap 9 (5-15) Blood Urea Nitrogen 10 mg/dL (7-18) Creatinine 0.7 MG/DL (0.55-1.30) Estimat Glomerular Filtration Rate > 60 mL/min (>60) Glucose Level 212 MG/DL (74-106) #H Calcium Level 7.5 MG/DL (8.5-10.1) L Urine Color Pale yellow Urine Appearance Slightly cloudy Urine pH 5 (4.5-8.0) Urine Specific [place] 1.005 (1.005-1.035) Urine Protein Negative (NEGATIVE) Urine Glucose (UA) 3+ (NEGATIVE) H Urine Ketones Negative (NEGATIVE) Urine Occult Blood Negative (NEGATIVE) Urine Nitrite Negative (NEGATIVE) Urine Bilirubin Negative (NEGATIVE) Urine Urobilinogen Normal MG/DL (0.0-1.0) Urine Leukocyte Esterase 1+ (NEGATIVE) H Urine RBC 0-2 /HPF (0 - 2) Urine WBC 2-4 /HPF (0 - 2) Urine Squamous Epithelial Cells Few /LPF (NONE/OCC) Urine Bacteria Few /HPF (NONE) Urine Yeast Moderate /HPF (NONE) H Current Medications Medications (Trade) Dose Ordered Sig/Adonay Route PRN Reason Start Time Stop Time Status Last Admin Dose Admin Acetaminophen (Tylenol) 650 mg Q6H PRN ORAL Mild Pain/Temp > 100.5 08/21/17 20:00 09/18/17 07:59 09/02/17 12:45 Amlodipine Besylate (Norvasc) 10 mg DAILY NG 08/23/17 09:00 09/22/17 08:59 09/03/17 09:30 Ascorbic Acid (Vitamin C) 500 mg DAILY NG 08/23/17 09:00 09/22/17 08:59 09/03/17 08:37 Baclofen (Lioresal) 10 mg THREE TIMES A DAY NG 08/23/17 09:00 09/22/17 08:59 09/03/17 13:19 Citalopram Hydrobromide (celeXA) 20 mg DAILY GT 08/27/17 09:00 09/18/17 08:59 09/03/17 08:36 Clonidine HCl (Catapres) 0.1 mg Q6H PRN NG SBP > 160mmHg 08/23/17 08:30 09/22/17 08:29 Dextrose 1,000 ml @ 125 mls/hr Q8H IV 09/01/17 09:30 10/01/17 09:29 09/03/17 10:37 Dextrose (Dextrose 50%) STAT PRN IV Hypoglycemia 08/21/17 20:00 09/20/17 19:59 09/02/17 06:52 Dextrose/Sodium Chloride 1,000 ml @ 100 mls/hr Q10H IV 09/04/17 00:01 10/04/17 00:00 Ferrous Sulfate (Feosol) 300 mg DAILY NG 08/27/17 09:00 09/26/17 08:59 09/03/17 08:36 Insulin Aspart (NovoLOG) EVERY 4 HOURS SUBQ 08/21/17 21:00 09/19/17 08:59 09/03/17 05:19 Insulin Detemir (Levemir) 10 units EVERY 12 HOURS SUBQ 09/05/17 09:00 10/05/17 08:59 Lansoprazole (Prevacid) 30 mg DAILY NG 08/24/17 09:00 09/23/17 08:59 09/03/17 08:37 Levothyroxine Sodium (Synthroid) 75 mcg ACBREAKFAST NG 08/24/17 06:30 09/23/17 06:29 09/03/17 05:25 Losartan Potassium (Cozaar) 50 mg DAILY NG 08/23/17 09:00 09/22/17 08:59 09/03/17 09:30 Multivitamins (Multivitamins) 1 tab DAILY ORAL 08/22/17 09:00 09/18/17 08:59 09/03/17 08:37 Ondansetron HCl (Zofran) 4 mg Q6H PRN NG Nausea & Vomiting 08/26/17 15:30 09/18/17 07:59 Oxycodone/ Acetaminophen (Percocet 5-325) 1 tab EVERY 6 HOURS PRN ORAL Severe Pain (Pain Scale 7-10) 09/02/17 15:45 09/09/17 15:44 09/03/17 01:08 Piperacillin Sod/ Tazobactam Sod 3.375 gm/Sodium Chloride 110 ml @ 27.5 mls/hr EVERY 8 HOURS IVPB 08/31/17 22:00 09/07/17 21:59 09/03/17 13:21 Potassium Chloride (KCl 10% 40mEq Oral solution) 40 meq TWICE A DAY NG 08/24/17 18:00 09/23/17 17:59 09/03/17 08:37 Quetiapine Fumarate (SEROquel) 12.5 mg Q12H PRN ORAL Agitation 08/30/17 11:45 09/29/17 11:44 Vancomycin HCl (Vanco rx to dose) 1 ea DAILY PRN MISC Per rx protocol 08/28/17 16:15 09/27/17 16:14 Vancomycin HCl 1 gm/Dextrose 275 ml @ 183.708 mls/hr Q24H IVPB 09/01/17 21:00 09/06/17 20:59 09/02/17 21:10 YASIR RUEDA Sep 03, 2017 16:51
[2017-09-03] MEDS ORDERED: Tubing IV Secondary IV ONE (17:09)
--- NOTE | 2017-09-03 18:16 | General Progress Note ---
Assessment/Plan Assessment/Plan Assessment - Respiratory failure - improved - leukocytosis - improved - UTI - Anemia - free water deficit / hypernatremia Recommendations - continue NGT - free water IV - abx - optimize resp status - PEG early next week Subjective ROS Limited/Unobtainable: No Allergies: Coded Allergies: No Known Allergies (Unverified , 08/18/17) Objective Last 24 Hour Vital Signs Date Time Temp Pulse Resp B/P (MAP) Pulse Ox O2 Delivery O2 Flow Rate FiO2 09/03/17 16:00 98.5 81 18 122/74 94 Nasal Cannula 2.0 09/03/17 12:00 98.2 80 20 123/64 98 Nasal Cannula 4.0 09/03/17 11:56 80 09/03/17 09:30 116/58 09/03/17 09:30 77 116/58 09/03/17 08:00 85 09/03/17 08:00 97.8 82 22 129/50 94 Nasal Cannula 2.0 09/03/17 07:21 95 Nasal Cannula 2.0 28 09/03/17 07:21 Nasal Cannula 2.0 28 09/03/17 04:00 99.1 70 20 116/58 95 Nasal Cannula 2.0 09/03/17 04:00 77 09/03/17 00:00 77 09/03/17 00:00 97.7 76 20 114/62 94 Nasal Cannula 2.0 09/02/17 21:04 Nasal Cannula 3.0 32 09/02/17 21:04 94 Nasal Cannula 3.0 32 09/02/17 20:00 75 09/02/17 20:00 98.0 72 20 106/57 96 Nasal Cannula 2.0 Intake and Output 09/03/17 09/04/17 19:00 07:00 Intake Total 1282.9 ml Balance 1282.9 ml IV Total 1282.9 ml Laboratory Tests 09/03/17 04:45: White Blood Count 11.2H, Red Blood Count 2.55L, Hemoglobin 8.3L, Hematocrit 25.0L, Mean Corpuscular Volume 98, Mean Corpuscular Hemoglobin 32.7H, Mean Corpuscular Hemoglobin Concent 33.3, Red Cell Distribution Width 15.7H, Platelet Count 145L, Mean Platelet Volume 9.3, Neutrophils (%) (Auto) 83.1H, Lymphocytes (%) (Auto) 9.9L, Monocytes (%) (Auto) 4.4, Eosinophils (%) (Auto) 1.9, Basophils (%) (Auto) 0.6, Sodium Level 139, Potassium Level 3.9, Chloride Level 108H, Carbon Dioxide Level 22, Anion Gap 9, Blood Urea Nitrogen 10, Creatinine 0.7, Estimat Glomerular Filtration Rate > 60, Glucose Level 212#H, Calcium Level 7.5L 09/03/17 05:40: Urine Color Pale yellow, Urine Appearance Slightly cloudy, Urine pH 5, Urine Specific [place] 1.005, Urine Protein Negative, Urine Glucose (UA) 3+H, Urine Ketones Negative, Urine Occult Blood Negative, Urine Nitrite Negative, Urine Bilirubin Negative, Urine Urobilinogen Normal, Urine Leukocyte Esterase 1+H, Urine RBC 0-2, Urine WBC 2-4, Urine Squamous Epithelial Cells Few, Urine Bacteria Few, Urine Yeast ModerateH Height (Feet): 5 Height (Inches): 2.00 Weight (Pounds): 113 General Appearance: no apparent distress EENT: normal ENT inspection Neck: supple Cardiovascular: normal rate Respiratory/Chest: decreased breath sounds Abdomen: normal bowel sounds, non tender, soft Extremities: non-tender DEVIN ADAM Sep 03, 2017 18:16
--- NOTE | 2017-09-03 18:50 | Geriatric Progress Note ---
Assessment/Plan Assessment/Plan encephalopathy -cont current care Discussed with: patient Subjective Mood/Memory: Reports: anxiety, depressed feelings, emotional problems Psychiatric: Reports: hallucinations Geriatric Geriatric Last 24 Hour Vital Signs Date Time Temp Pulse Resp B/P (MAP) Pulse Ox O2 Delivery O2 Flow Rate FiO2 09/03/17 16:00 98.5 81 18 122/74 94 Nasal Cannula 2.0 09/03/17 16:00 83 09/03/17 12:00 98.2 80 20 123/64 98 Nasal Cannula 4.0 09/03/17 11:56 80 09/03/17 09:30 116/58 09/03/17 09:30 77 116/58 09/03/17 08:00 85 09/03/17 08:00 97.8 82 22 129/50 94 Nasal Cannula 2.0 09/03/17 07:21 95 Nasal Cannula 2.0 28 09/03/17 07:21 Nasal Cannula 2.0 28 09/03/17 04:00 99.1 70 20 116/58 95 Nasal Cannula 2.0 09/03/17 04:00 77 09/03/17 00:00 77 09/03/17 00:00 97.7 76 20 114/62 94 Nasal Cannula 2.0 09/02/17 21:04 Nasal Cannula 3.0 32 09/02/17 21:04 94 Nasal Cannula 3.0 32 09/02/17 20:00 75 09/02/17 20:00 98.0 72 20 106/57 96 Nasal Cannula 2.0 Intake and Output 09/03/17 09/04/17 19:00 07:00 Intake Total 1462.9 ml Output Total 350 ml Balance 1112.9 ml IV Total 1407.9 ml Tube Feeding 55 ml Output Urine Total 350 ml Laboratory Tests Test 09/03/17 04:45 09/03/17 05:40 White Blood Count 11.2 K/UL (4.8-10.8) H Red Blood Count 2.55 M/UL (4.20-5.40) L Hemoglobin 8.3 G/DL (12.0-16.0) L Hematocrit 25.0 % (37.0-47.0) L Mean Corpuscular Volume 98 FL (80-99) Mean Corpuscular Hemoglobin 32.7 PG (27.0-31.0) H Mean Corpuscular Hemoglobin Concent 33.3 G/DL (32.0-36.0) Red Cell Distribution Width 15.7 % (11.6-14.8) H Platelet Count 145 K/UL (150-450) L Mean Platelet Volume 9.3 FL (6.5-10.1) Neutrophils (%) (Auto) 83.1 % (45.0-75.0) H Lymphocytes (%) (Auto) 9.9 % (20.0-45.0) L Monocytes (%) (Auto) 4.4 % (1.0-10.0) Eosinophils (%) (Auto) 1.9 % (0.0-3.0) Basophils (%) (Auto) 0.6 % (0.0-2.0) Sodium Level 139 MMOL/L (136-145) Potassium Level 3.9 MMOL/L (3.5-5.1) Chloride Level 108 MMOL/L (98-107) H Carbon Dioxide Level 22 MMOL/L (21-32) Anion Gap 9 (5-15) Blood Urea Nitrogen 10 mg/dL (7-18) Creatinine 0.7 MG/DL (0.55-1.30) Estimat Glomerular Filtration Rate > 60 mL/min (>60) Glucose Level 212 MG/DL (74-106) #H Calcium Level 7.5 MG/DL (8.5-10.1) L Urine Color Pale yellow Urine Appearance Slightly cloudy Urine pH 5 (4.5-8.0) Urine Specific [place] 1.005 (1.005-1.035) Urine Protein Negative (NEGATIVE) Urine Glucose (UA) 3+ (NEGATIVE) H Urine Ketones Negative (NEGATIVE) Urine Occult Blood Negative (NEGATIVE) Urine Nitrite Negative (NEGATIVE) Urine Bilirubin Negative (NEGATIVE) Urine Urobilinogen Normal MG/DL (0.0-1.0) Urine Leukocyte Esterase 1+ (NEGATIVE) H Urine RBC 0-2 /HPF (0 - 2) Urine WBC 2-4 /HPF (0 - 2) Urine Squamous Epithelial Cells Few /LPF (NONE/OCC) Urine Bacteria Few /HPF (NONE) Urine Yeast Moderate /HPF (NONE) H Current Medications Medications (Trade) Dose Ordered Sig/Adonay Route PRN Reason Start Time Stop Time Status Last Admin Dose Admin Acetaminophen (Tylenol) 650 mg Q6H PRN ORAL Mild Pain/Temp > 100.5 08/21/17 20:00 09/18/17 07:59 09/02/17 12:45 Amlodipine Besylate (Norvasc) 10 mg DAILY NG 08/23/17 09:00 09/22/17 08:59 09/03/17 09:30 Ascorbic Acid (Vitamin C) 500 mg DAILY NG 08/23/17 09:00 09/22/17 08:59 09/03/17 08:37 Baclofen (Lioresal) 10 mg THREE TIMES A DAY NG 08/23/17 09:00 09/22/17 08:59 09/03/17 17:05 Citalopram Hydrobromide (celeXA) 20 mg DAILY GT 08/27/17 09:00 09/18/17 08:59 09/03/17 08:36 Clonidine HCl (Catapres) 0.1 mg Q6H PRN NG SBP > 160mmHg 08/23/17 08:30 09/22/17 08:29 Dextrose 1,000 ml @ 125 mls/hr Q8H IV 09/01/17 09:30 10/01/17 09:29 09/03/17 17:05 Dextrose (Dextrose 50%) STAT PRN IV Hypoglycemia 08/21/17 20:00 09/20/17 19:59 09/02/17 06:52 Dextrose/Sodium Chloride 1,000 ml @ 100 mls/hr Q10H IV 09/04/17 00:01 10/04/17 00:00 Ferrous Sulfate (Feosol) 300 mg DAILY NG 08/27/17 09:00 09/26/17 08:59 09/03/17 08:36 Insulin Aspart (NovoLOG) EVERY 4 HOURS SUBQ 08/21/17 21:00 09/19/17 08:59 09/03/17 17:07 Insulin Detemir (Levemir) 10 units EVERY 12 HOURS SUBQ 09/05/17 09:00 10/05/17 08:59 Lansoprazole (Prevacid) 30 mg DAILY NG 08/24/17 09:00 09/23/17 08:59 09/03/17 08:37 Levothyroxine Sodium (Synthroid) 75 mcg ACBREAKFAST NG 08/24/17 06:30 09/23/17 06:29 09/03/17 05:25 Losartan Potassium (Cozaar) 50 mg DAILY NG 08/23/17 09:00 09/22/17 08:59 09/03/17 09:30 Multivitamins (Multivitamins) 1 tab DAILY ORAL 08/22/17 09:00 09/18/17 08:59 09/03/17 08:37 Ondansetron HCl (Zofran) 4 mg Q6H PRN NG Nausea & Vomiting 08/26/17 15:30 09/18/17 07:59 Oxycodone/ Acetaminophen (Percocet 5-325) 1 tab EVERY 6 HOURS PRN ORAL Severe Pain (Pain Scale 7-10) 09/02/17 15:45 09/09/17 15:44 09/03/17 01:08 Piperacillin Sod/ Tazobactam Sod 3.375 gm/Sodium Chloride 110 ml @ 27.5 mls/hr EVERY 8 HOURS IVPB 08/31/17 22:00 09/07/17 21:59 09/03/17 13:21 Potassium Chloride (KCl 10% 40mEq Oral solution) 40 meq TWICE A DAY NG 08/24/17 18:00 09/23/17 17:59 09/03/17 17:05 Quetiapine Fumarate (SEROquel) 12.5 mg Q12H PRN ORAL Agitation 08/30/17 11:45 09/29/17 11:44 Vancomycin HCl (Vanco rx to dose) 1 ea DAILY PRN MISC Per rx protocol 08/28/17 16:15 09/27/17 16:14 Vancomycin HCl 1 gm/Dextrose 275 ml @ 183.708 mls/hr Q24H IVPB 09/01/17 21:00 09/06/17 20:59 09/02/17 21:10 Height (Feet): 5 Height (Inches): 2.00 Weight (Pounds): 113 General Appearance: alert, good eye contact, poorly groomed Neurologic: alert Psychiatric Behavior: psychomotor agitation Language/Speech: slow Orientation: disoriented Affect: restricted Insight: poor Audi Bonilla M.D. Sep 03, 2017 18:50
[2017-09-03 20:00] VITALS: BP 128/60
[2017-09-03] MEDS: Vancomycin 1gm/D5W 275ml IVPB SCH ×2 (21:12)
[2017-09-04] VITALS (12 sets, daily range): BP systolic 105–136; BP diastolic 41–78
[2017-09-04] MEDS ORDERED: D5 1/2NS 1,000 ML IV SCH (00:01)
[2017-09-04] MEDS: Piperacillin/Tazobactam 3.375 GM in NS 110 ML IVPB SCH ×3 (05:46→22:00)
[2017-09-04] MEDS ORDERED: Propofol 200mg/20ml IV ONE ×2 (06:00)
[2017-09-04] MEDS ORDERED: fentaNYL 100 mcg/2 mL IV ONE (06:00)
[2017-09-04] MEDS: NovoLOG Insulin Flexpen SUBQ SCH ×6 (06:01→23:51)
--- NOTE | 2017-09-04 06:36 | Pre-Procedure Note/Attestation ---
Pre-Procedure Note/Attestation Complete Prior to Procedure Planned Procedure: not applicable Procedure Narrative: EGD with PEG placement Indications for Procedure Pre-Operative Diagnosis: Dysphagia Attestation I attest that I discussed the nature of the procedure; its benefits; risks and complications; and alternatives (and the risks and benefits of such alternatives ), prior to the procedure, with the patient (or the patient's legal instruments sales representative). I attest that, if there was a reasonable possibility of needing a blood transfusion, the patient (or the patient's legal instruments sales representative) was given the [facility] of Health Services standardized written summary, pursuant to the Ricky Laura Blood Safety Act ([place] Health and Safety Code # 1645, as amended). I attest that I re-evaluated the patient just prior to the surgery and that there has been no change in the patient's H&P, except as documented below: ERIKA ESPINOSA Sep 04, 2017 06:36
--- NOTE | 2017-09-04 06:36 | Pre-Procedure Note/Attestation ---
Pre-Procedure Note/Attestation Complete Prior to Procedure Planned Procedure: not applicable Procedure Narrative: EGD with PEG placement Indications for Procedure Pre-Operative Diagnosis: Dysphagia Attestation I attest that I discussed the nature of the procedure; its benefits; risks and complications; and alternatives (and the risks and benefits of such alternatives ), prior to the procedure, with the patient (or the patient's legal customer development representative). I attest that, if there was a reasonable possibility of needing a blood transfusion, the patient (or the patient's legal customer development representative) was given the [facility] of [facility] Services standardized written summary, pursuant to the Ricky Laura Blood Safety Act ([place] Health and Safety Code # 1645, as amended). I attest that I re-evaluated the patient just prior to the surgery and that there has been no change in the patient's H&P, except as documented below: ERIKA ESPINOSA Sep 04, 2017 06:36
--- NOTE | 2017-09-04 06:36 | Pre-Procedure Note/Attestation ---
Pre-Procedure Note/Attestation Complete Prior to Procedure Planned Procedure: not applicable Procedure Narrative: EGD with PEG placement Indications for Procedure Pre-Operative Diagnosis: Dysphagia Attestation I attest that I discussed the nature of the procedure; its benefits; risks and complications; and alternatives (and the risks and benefits of such alternatives ), prior to the procedure, with the patient (or the patient's legal operations support representative). I attest that, if there was a reasonable possibility of needing a blood transfusion, the patient (or the patient's legal operations support representative) was given the [facility] of Health Services standardized written summary, pursuant to the Ricky Laura Blood Safety Act ([place] Health and Safety Code # 1645, as amended). I attest that I re-evaluated the patient just prior to the surgery and that there has been no change in the patient's H&P, except as documented below: ERIKA ESPINOSA Sep 04, 2017 06:36
--- NOTE | 2017-09-04 06:39 | General Progress Note ---
Assessment/Plan Assessment/Plan Assessment - Respiratory failure - leukocytosis - Anemia - free water deficit / hypernatremia - resolved - IDDM - insulin on hold since NPO Recommendations - NPO - IVF - PEG placement today - Resume long acting insulin tomorrow, once TF restarted Post Procedure Addendum PEG placed. No complications. Will start TF in am. Subjective Allergies: Coded Allergies: No Known Allergies (Unverified , 08/18/17) Subjective above noted received more free water over weekend Na now normalized NPO for PEG Objective Last 24 Hour Vital Signs Date Time Temp Pulse Resp B/P (MAP) Pulse Ox O2 Delivery O2 Flow Rate FiO2 09/04/17 04:15 Nasal Cannula 2.0 28 09/04/17 04:15 96 Nasal Cannula 2.0 28 09/04/17 04:00 97.2 76 18 127/64 94 Nasal Cannula 2.0 09/04/17 04:00 68 09/04/17 00:00 70 09/04/17 00:00 97.0 77 20 126/61 94 Nasal Cannula 2.0 09/03/17 20:00 75 09/03/17 20:00 98.2 84 20 128/60 94 Nasal Cannula 2.0 09/03/17 16:00 98.5 81 18 122/74 94 Nasal Cannula 2.0 09/03/17 16:00 83 09/03/17 12:00 98.2 80 20 123/64 98 Nasal Cannula 4.0 09/03/17 11:56 80 09/03/17 09:30 116/58 09/03/17 09:30 77 116/58 09/03/17 08:00 85 09/03/17 08:00 97.8 82 22 129/50 94 Nasal Cannula 2.0 09/03/17 07:21 95 Nasal Cannula 2.0 28 09/03/17 07:21 Nasal Cannula 2.0 28 Height (Feet): 5 Height (Inches): 3.00 Weight (Pounds): 113 Objective Thin AA woman NCAT Neck supple Chest: b/l coarse BS RRR soft ND NT no edema ERIKA ESPINOSA Sep 04, 2017 06:39
--- NOTE | 2017-09-04 06:53 | Anethesia Preoperative Eval ---
Anesthesia Pre-op PMH/ROS General Date of Evaluation: Sep 04, 2017 Time of Evaluation: 06:28 Anesthesiologist: Alireza ASA Score: ASA 4 Mallampati Score Class I : Soft palate, uvula, fauces, pillars visible Class II: Soft palate, uvula, fauces visible Class III: Soft palate, base of uvula visible Class IV: Only hard plate visible Mallampati Classification: Class II Surgeon: Ju Diagnosis: Dysphagia Surgical Procedure: EGD PEG tube placement Anesthesia History: none Family History: no anesthesia problems Allergies: Coded Allergies: No Known Allergies (Unverified , 08/18/17) Medications: see eMAR Past Medical History Cardiovascular: Reports: HTN, Denies: CAD, [place], valve dz, arrhythmia, other Pulmonary: Denies: asthma, COPD, AMELIA, other Gastrointestinal/Genitourinary: Reports: GERD, Denies: CRI, ESRD, other Neurologic/Psychiatric: Reports: dementia, CVA, Denies: depression/anxiety, TIA, other Endocrine: Reports: DM HEENT: Denies: cataract (L), cataract (R), glaucoma, COMANCHE (L), COMANCHE (R), other Hematology/Immune: Reports: anemia, Denies: DVT, bleeding disorder, other Musculoskeletal/Integumentary: Reports: DJD, other - severe contraction Other: other - malnourished PMH Narrative: as above PSxH Narrative: see chart Anesthesia Pre-op Phys. Exam Physician Exam Last Vital Signs Date Time Temp Pulse Resp B/P (MAP) Pulse Ox O2 Delivery O2 Flow Rate FiO2 09/04/17 04:15 Nasal Cannula 2.0 28 09/04/17 04:15 96 09/04/17 04:00 97.2 76 18 127/64 Constitutional: NAD Neurologic: other - unable to obtaine Cardiovascular: RRR Respiratory: CTA Gastrointestinal: S/NT/ND Airway Exam Mallampati Score: Class II MO: limited Neck: stiff ROM: limited Teeth: missing Dentures: no upper, no lower Anesthesia Pre-op A/P Risk Assessment & Plan Assessment: ASA 4 Plan: MAC Status Change Before Surgery: No Pre-Antibiotics Drug: as scheduled JOSÉ LUIS LARKIN M.D. Sep 04, 2017 06:53
--- NOTE | 2017-09-04 06:53 | Anethesia Preoperative Eval ---
Anesthesia Pre-op PMH/ROS General Date of Evaluation: Sep 04, 2017 Time of Evaluation: 06:28 Anesthesiologist: Alireza ASA Score: ASA 4 Mallampati Score Class I : Soft palate, uvula, fauces, pillars visible Class II: Soft palate, uvula, fauces visible Class III: Soft palate, base of uvula visible Class IV: Only hard plate visible Mallampati Classification: Class II Surgeon: Ju Diagnosis: Dysphagia Surgical Procedure: EGD PEG tube placement Anesthesia History: none Family History: no anesthesia problems Allergies: Coded Allergies: No Known Allergies (Unverified , 08/18/17) Medications: see eMAR Past Medical History Cardiovascular: Reports: HTN, Denies: CAD, [place], valve dz, arrhythmia, other Pulmonary: Denies: asthma, COPD, AMELIA, other Gastrointestinal/Genitourinary: Reports: GERD, Denies: CRI, ESRD, other Neurologic/Psychiatric: Reports: dementia, CVA, Denies: depression/anxiety, TIA, other Endocrine: Reports: DM HEENT: Denies: cataract (L), cataract (R), glaucoma, [place] (L), [place] (R), other Hematology/Immune: Reports: anemia, Denies: DVT, bleeding disorder, other Musculoskeletal/Integumentary: Reports: DJD, other - severe contraction Other: other - malnourished PMH Narrative: as above PSxH Narrative: see chart Anesthesia Pre-op Phys. Exam Physician Exam Last Vital Signs Date Time Temp Pulse Resp B/P (MAP) Pulse Ox O2 Delivery O2 Flow Rate FiO2 09/04/17 04:15 Nasal Cannula 2.0 28 09/04/17 04:15 96 09/04/17 04:00 97.2 76 18 127/64 Constitutional: NAD Neurologic: other - unable to obtaine Cardiovascular: RRR Respiratory: CTA Gastrointestinal: S/NT/ND Airway Exam Mallampati Score: Class II MO: limited Neck: stiff ROM: limited Teeth: missing Dentures: no upper, no lower Anesthesia Pre-op A/P Risk Assessment & Plan Assessment: ASA 4 Plan: MAC Status Change Before Surgery: No Pre-Antibiotics Drug: as scheduled JOSÉ LUIS LARKIN M.D. Sep 04, 2017 06:53
--- NOTE | 2017-09-04 06:53 | Anethesia Preoperative Eval ---
Anesthesia Pre-op PMH/ROS General Date of Evaluation: Sep 04, 2017 Time of Evaluation: 06:28 Anesthesiologist: Alireza ASA Score: ASA 4 Mallampati Score Class I : Soft palate, uvula, fauces, pillars visible Class II: Soft palate, uvula, fauces visible Class III: Soft palate, base of uvula visible Class IV: Only hard plate visible Mallampati Classification: Class II Surgeon: Ju Diagnosis: Dysphagia Surgical Procedure: EGD PEG tube placement Anesthesia History: none Family History: no anesthesia problems Allergies: Coded Allergies: No Known Allergies (Unverified , 08/18/17) Medications: see eMAR Past Medical History Cardiovascular: Reports: HTN, Denies: CAD, [place], valve dz, arrhythmia, other Pulmonary: Denies: asthma, COPD, AMELIA, other Gastrointestinal/Genitourinary: Reports: GERD, Denies: CRI, ESRD, other Neurologic/Psychiatric: Reports: dementia, CVA, Denies: depression/anxiety, TIA, other Endocrine: Reports: DM HEENT: Denies: cataract (L), cataract (R), glaucoma, [place] (L), [place] (R), other Hematology/Immune: Reports: anemia, Denies: DVT, bleeding disorder, other Musculoskeletal/Integumentary: Reports: DJD, other - severe contraction Other: other - malnourished PMH Narrative: as above PSxH Narrative: see chart Anesthesia Pre-op Phys. Exam Physician Exam Last Vital Signs Date Time Temp Pulse Resp B/P (MAP) Pulse Ox O2 Delivery O2 Flow Rate FiO2 09/04/17 04:15 Nasal Cannula 2.0 28 09/04/17 04:15 96 09/04/17 04:00 97.2 76 18 127/64 Constitutional: NAD Neurologic: other - unable to obtaine Cardiovascular: RRR Respiratory: CTA Gastrointestinal: S/NT/ND Airway Exam Mallampati Score: Class II MO: limited Neck: stiff ROM: limited Teeth: missing Dentures: no upper, no lower Anesthesia Pre-op A/P Risk Assessment & Plan Assessment: ASA 4 Plan: MAC Status Change Before Surgery: No Pre-Antibiotics Drug: as scheduled JOSÉ LUIS LARKIN M.D. Sep 04, 2017 06:53
--- NOTE | 2017-09-04 07:05 | Immediate Post-Op Evaluation ---
Immediate Post-Op Evalulation Immediate Post-Op Evalulation Procedure: EGD PEG tube placement Date of Evaluation: Sep 04, 2017 Time of Evaluation: 07:04 IV Fluids: 200 Blood Products: none Estimated Blood Loss: min Urinary Output: none Blood Pressure Systolic: 112 Blood Pressure Diastolic: 62 Pulse Rate: 72 Respiratory Rate: 20 O2 Sat by Pulse Oximetry: 99 Temperature (Fahrenheit): 98.1 Pain Score (1-10): 2 Nausea: No Vomiting: No Complications none Patient Status: reacts, patent, none Hydration Status: adequate JOSÉ LUIS LARKIN M.D. Sep 04, 2017 07:05
--- NOTE | 2017-09-04 07:08 | 48 Hour Post Anesthesia Eval ---
Post Anesthesia Evaluation Procedure: EGD PEG tube placement Date of Evaluation: Sep 04, 2017 Time of Evaluation: 08:02 Blood Pressure Systolic: 116 0: 56 Pulse Rate: 77 Respiratory Rate: 22 Temperature (Fahrenheit): 97.6 O2 Sat by Pulse Oximetry: 98 Airway: patent Nausea: No Vomiting: No Pain Intensity: 1 Hydration Status: adequate Cardiopulmonary Status: stable Follow-up Care/Observations: n/a Post-Anesthesia Complications: none Follow-up care needed: N/A JOSÉ LUIS LARKIN M.D. Sep 04, 2017 07:08
--- NOTE | 2017-09-04 08:16 | Geriatric Medicine Prog Note ---
SUBJECTIVE: The patient is comfortable.and preparing to starty tube feedings. OBJECTIVE: VITAL SIGNS: Stable. Blood pressure 131/71, pulse 92, respiratory rate 20, and temperature 98. RESPIRATORY: Clear. CVS: Regular. LABORATORY DATA: Glucose 135 mg percent. ASSESSMENT: Diabetes Mellitus improved. PLAN: Accuchecks Q12hrs to be q.6 h. after tube feeds are started. Prabhu Wood M.D. DR: ANAYA JOB#: [id number] CC: ROSANA
--- NOTE | 2017-09-04 08:32 | Geriatric Medicine Prog Note ---
SUBJECTIVE: The patient is comfortable OBJECTIVE:BP 120/80.P80,R28.T89 RESP_:clear,CVS-Regular ABD-soft.BS WNL EXT-No edema INV:[id number] ASSESSMENT:,Diabetes Mellituw i fair control PLANS:Metformin 500 mg po BID Prabhu Wood MD [facility]
--- NOTE | 2017-09-04 08:32 | Geriatric Medicine Prog Note ---
SUBJECTIVE: The patient is comfortable OBJECTIVE:BP 120/80.P80,R28.T89 RESP_:clear,CVS-Regular ABD-soft.BS WNL EXT-No edema INV:[id number] ASSESSMENT:,Diabetes Mellituw i fair control PLANS:Metformin 500 mg po BID [facility]abhu Wood [facility]
--- NOTE | 2017-09-04 08:32 | Geriatric Medicine Prog Note ---
SUBJECTIVE: The patient is comfortable OBJECTIVE:BP 120/80.P80,R28.T89 RESP_:clear,CVS-Regular ABD-soft.BS WNL EXT-No edema INV:[id number] ASSESSMENT:,Diabetes Mellituw i fair control PLANS:Metformin 500 mg po BID Prabhu Wood [facility]
[2017-09-04] MEDS: Citalopram Hydrobromide 10mg Tab GT SCH (10:02)
[2017-09-04] MEDS: Ferrous Sulfate 300 MG/5 ML UDC NG SCH (10:02)
[2017-09-04] MEDS: Acetaminophen 500mg (ES) tab ORAL PRN (10:04)
[2017-09-04] MEDS: KCl 10% 40mEq/30ml liquid NG SCH ×2 (10:04→18:13)
[2017-09-04] MEDS: Ascorbic Acid 500mg tab NG SCH (10:05)
[2017-09-04] MEDS: Losartan 50mg tab NG SCH (10:06)
--- NOTE | 2017-09-04 10:36 | Diagnostic Imaging Report ---
Indication: Shortness of breath Technique: One view of the chest Comparison: 09/01/2017 Findings: Bilateral diffuse interstitial and alveolar disease is unchanged. The heart size is normal. Pleural spaces are clear Impression: Unchanged, over 3 days, findings as above.
--- NOTE | 2017-09-04 11:25 | Consultation ---
History of Present Illness General Date patient seen: Sep 04, 2017 Time patient seen: 11:17 Chief Complaint: Altered Level of Consciousness Reason for Consultation: Sacral Ulcer Present Illness HPI Asked to evaluate this patient with a sacral ulcer. She was admitted to [facility] [place] on from a SNF with the ulcer. She was in respiratory failure and sepsis upon admission. On admission she had a sacral ulcer that was unstageable. She has been receiving therahoney to the wound. THe wound has not improved during her hospitalization. Of note she was hypoalbuminemic on admission and had a PEG placed during this admission. She is not able to give history. Asked to evaluate due to the sacral ulcer not improving. Allergies: Coded Allergies: No Known Allergies (Unverified , 08/18/17) Medication History Scheduled Alendronate Sodium* (Fosamax*), 70 MG ORAL ONCE A WEEK, (Reported) Amlodipine Besylate* (Amlodipine Besylate*), 10 MG ORAL DAILY, (Reported) Apixaban (Eliquis), 2.5 MG PO BID, (Reported) Ascorbic Acid* (Vitamin C*), 500 MG ORAL DAILY, (Reported) Baclofen* (Baclofen*), 10 MG ORAL THREE TIMES A DAY, (Reported) Citalopram Hydrobromide* (Celexa*), 20 MG ORAL DAILY, (Reported) Ferrous Sulfate* (Ferrous Sulfate*), 325 MG ORAL DAILY, (Reported) Heparin Sod (Porcine) (Heparin Sodium*), 5,000 UNITS SUBQ EVERY 12 HOURS, ( Reported) Insulin Detemir (Levemir), 0 SUBQ BEDTIME, (Reported) Levothyroxine Sodium* (Levothyroxine Sodium*), 75 MCG ORAL DAILY, (Reported) Losartan Potassium* (Losartan Potassium*), 50 MG ORAL DAILY, (Reported) Magnesium Oxide (Magnesium), 400 MG PO BID, (Reported) Morphine Sulfate* (Ms Contin*), 15 MG ORAL EVERY 12 HOURS, (Reported) Multivitamins* (Multivitamins*), 1 TAB ORAL DAILY, (Reported) Pantoprazole* (Protonix*), 40 MG ORAL DAILY, (Reported) Scheduled PRN Acetaminophen* (Tylenol Extra Strength*), 650 MG ORAL Q6H PRN for Mild Pain/ Temp > 100.5, (Reported) Clonidine Hcl* (Catapres*), 0.1 MG ORAL EVERY 6 HOURS PRN for For High Blood Pressure, (Reported) Hydralazine HCl (Hydralazine HCl), 25 MG PO Q8HR PRN for For High Blood Pressure , (Reported) Lorazepam* (Ativan*), 0.5 MG ORAL THREE TIMES A DAY PRN for For Anxiety, ( Reported) Ondansetron* (Zofran*), 4 MG ORAL Q6H PRN for Nausea & Vomiting, (Reported) Oxycodone/Acetaminophen 5-325* (Percocet 5-325 Mg Tablet*), 1 TAB ORAL Q6H PRN for For Pain, (Reported) Miscellaneous Medications Calcium Carbonate (Calcium), 500 MG PO, (Reported) Insulin Human Lispro (Humalog), 0 SUBQ, (Reported) Nutritional Supplement (Nutren), 1,000 ML PO, (Reported) Patient History Limited by: medical condition History Provided By: Medical Record Healthcare decision maker TAMMY PERES Resuscitation status Full Code Advanced Directive on File No Physical Exam General Appearance: thin Lines, tubes and drains: peripheral, gtube Skin Exam: other - Moderate sized unstageable sacrococcyx ulcer with adherent eschar. No fluctuance palpable under the eschar. Periskin with no erythema or warmth. No crepitus. Area is moist. Musculoskeletal: atrophy Last 24 Hour Vital Signs Date Time Temp Pulse Resp B/P (MAP) Pulse Ox O2 Delivery O2 Flow Rate FiO2 09/04/17 10:06 136/78 09/04/17 10:03 69 136/78 09/04/17 08:00 98.7 69 16 136/78 99 Nasal Cannula 3.0 09/04/17 07:40 75 28 126/66 98 Nasal Cannula 3.0 09/04/17 07:30 69 25 118/62 97 Nasal Cannula 3.0 09/04/17 07:15 72 27 122/65 97 Nasal Cannula 3.0 09/04/17 07:10 72 26 120/70 97 Nasal Cannula 3.0 09/04/17 07:08 77 22 98 09/04/17 07:05 73 22 115/71 95 Nasal Cannula 3.0 09/04/17 07:05 72 20 99 09/04/17 07:00 98.1 73 22 112/62 98 Nasal Cannula 3.0 09/04/17 04:15 Nasal Cannula 2.0 28 09/04/17 04:15 96 Nasal Cannula 2.0 28 09/04/17 04:00 97.2 76 18 127/64 94 Nasal Cannula 2.0 09/04/17 04:00 68 09/04/17 00:00 70 09/04/17 00:00 97.0 77 20 126/61 94 Nasal Cannula 2.0 09/03/17 20:00 75 09/03/17 20:00 98.2 84 20 128/60 94 Nasal Cannula 2.0 09/03/17 16:00 98.5 81 18 122/74 94 Nasal Cannula 2.0 09/03/17 16:00 83 09/03/17 12:00 98.2 80 20 123/64 98 Nasal Cannula 4.0 09/03/17 11:56 80 Intake and Output 09/04/17 09/05/17 19:00 07:00 Intake Total 100 ml Balance 100 ml Free Water 100 ml Height (Feet): 5 Height (Inches): 3.00 Weight (Pounds): 113 Medications Current Medications Medications (Trade) Dose Ordered Sig/Adonay Route PRN Reason Start Time Stop Time Status Last Admin Dose Admin Acetaminophen (Tylenol) 650 mg Q6H PRN ORAL Mild Pain/Temp > 100.5 08/21/17 20:00 09/18/17 07:59 09/04/17 10:04 Amlodipine Besylate (Norvasc) 10 mg DAILY NG 08/23/17 09:00 09/22/17 08:59 09/04/17 10:03 Ascorbic Acid (Vitamin C) 500 mg DAILY NG 08/23/17 09:00 09/22/17 08:59 09/04/17 10:05 Baclofen (Lioresal) 10 mg THREE TIMES A DAY NG 08/23/17 09:00 09/22/17 08:59 09/04/17 10:05 Citalopram Hydrobromide (celeXA) 20 mg DAILY GT 08/27/17 09:00 09/18/17 08:59 09/04/17 10:02 Clonidine HCl (Catapres) 0.1 mg Q6H PRN NG SBP > 160mmHg 08/23/17 08:30 09/22/17 08:29 Dextrose (Dextrose 50%) STAT PRN IV Hypoglycemia 08/21/17 20:00 09/20/17 19:59 09/02/17 06:52 Dextrose/Sodium Chloride 1,000 ml @ 100 mls/hr Q10H IV 09/05/17 00:01 09/05/17 09:00 Ferrous Sulfate (Feosol) 300 mg DAILY NG 08/27/17 09:00 09/26/17 08:59 09/04/17 10:02 Insulin Aspart (NovoLOG) EVERY 6 HOURS SUBQ 09/04/17 06:00 09/19/17 08:59 09/04/17 06:18 Insulin Detemir (Levemir) 10 units EVERY 12 HOURS SUBQ 09/05/17 09:00 10/05/17 08:59 Lansoprazole (Prevacid) 30 mg DAILY NG 08/24/17 09:00 09/23/17 08:59 09/04/17 10:05 Levothyroxine Sodium (Synthroid) 75 mcg ACBREAKFAST NG 08/24/17 06:30 09/23/17 06:29 09/04/17 10:04 Losartan Potassium (Cozaar) 50 mg DAILY NG 08/23/17 09:00 09/22/17 08:59 09/04/17 10:06 Multivitamins (Multivitamins) 1 tab DAILY ORAL 08/22/17 09:00 09/18/17 08:59 09/04/17 10:05 Ondansetron HCl (Zofran) 4 mg Q6H PRN NG Nausea & Vomiting 08/26/17 15:30 09/18/17 07:59 Oxycodone/ Acetaminophen (Percocet 5-325) 1 tab EVERY 6 HOURS PRN ORAL Severe Pain (Pain Scale 7-10) 09/02/17 15:45 09/09/17 15:44 09/03/17 19:38 Piperacillin Sod/ Tazobactam Sod 3.375 gm/Sodium Chloride 110 ml @ 27.5 mls/hr EVERY 8 HOURS IVPB 08/31/17 22:00 09/07/17 21:59 09/04/17 05:46 Potassium Chloride (KCl 10% 40mEq Oral solution) 40 meq TWICE A DAY NG 08/24/17 18:00 09/23/17 17:59 09/04/17 10:04 Quetiapine Fumarate (SEROquel) 12.5 mg Q12H PRN ORAL Agitation 08/30/17 11:45 09/29/17 11:44 09/04/17 10:05 Vancomycin HCl (Vanco rx to dose) 1 ea DAILY PRN MISC Per rx protocol 08/28/17 16:15 09/27/17 16:14 Vancomycin HCl 1 gm/Dextrose 275 ml @ 183.708 mls/hr Q24H IVPB 09/01/17 21:00 09/06/17 20:59 09/03/17 21:12 Assessment/Plan Assessment/Plan Patient with unstageable sacrococcyx ulcer. She is being followed by ID. The prognosis for healing this ulcer is not good due to other issues, namely her poor nuitritional level. She will eventually need the eschar to be debrided but at this time it is premature as it is firmly attached and acting as a biologic dressing. Cannot rule out osteomyelitis. For now need to aggressively offload the patient, optimize nutrition, and keep the area from excessive moisture. No urgent surgical intervention needed at this time. YORDY MAURICE Sep 04, 2017 11:25
--- NOTE | 2017-09-04 11:42 | Pulmonology Progress Note ---
Assessment/Plan Assessment/Plan DKA, resolved DM w hypoglycemia, now stable UTI sepsis htn anxiety, depression chronic pain on meds AMS, improved but still confused lactic acidosis respiratory failure, interstitial edema Hypernatremia, dehydration PEG today Abx per ID DM rx per Dr Andrade rx UTI, sepsis; cultures neg disc w RN DC planning IV D5W rx taper O2 Subjective Interval Events: For PEG today Constitutional: Reports: no symptoms HEENT: Repors: no symptoms Respiratory: Reports: no symptoms Cardiovascular: Reports: no symptoms Gastrointestinal/Abdominal: Reports: no symptoms Allergies: Coded Allergies: No Known Allergies (Unverified , 08/18/17) Objective Last 24 Hour Vital Signs Date Time Temp Pulse Resp B/P (MAP) Pulse Ox O2 Delivery O2 Flow Rate FiO2 09/04/17 11:03 98.7 09/04/17 10:06 136/78 09/04/17 10:03 69 136/78 09/04/17 08:00 98.7 69 16 136/78 99 Nasal Cannula 3.0 09/04/17 07:40 75 28 126/66 98 Nasal Cannula 3.0 09/04/17 07:30 69 25 118/62 97 Nasal Cannula 3.0 09/04/17 07:15 72 27 122/65 97 Nasal Cannula 3.0 09/04/17 07:10 72 26 120/70 97 Nasal Cannula 3.0 09/04/17 07:08 77 22 98 09/04/17 07:05 73 22 115/71 95 Nasal Cannula 3.0 09/04/17 07:05 72 20 99 09/04/17 07:00 98.1 73 22 112/62 98 Nasal Cannula 3.0 09/04/17 04:15 Nasal Cannula 2.0 28 09/04/17 04:15 96 Nasal Cannula 2.0 28 09/04/17 04:00 97.2 76 18 127/64 94 Nasal Cannula 2.0 09/04/17 04:00 68 09/04/17 00:00 70 09/04/17 00:00 97.0 77 20 126/61 94 Nasal Cannula 2.0 09/03/17 20:00 75 09/03/17 20:00 98.2 84 20 128/60 94 Nasal Cannula 2.0 09/03/17 16:00 98.5 81 18 122/74 94 Nasal Cannula 2.0 09/03/17 16:00 83 09/03/17 12:00 98.2 80 20 123/64 98 Nasal Cannula 4.0 09/03/17 11:56 80 Intake and Output 09/04/17 09/05/17 19:00 07:00 Intake Total 100 ml Balance 100 ml Free Water 100 ml General Appearance: no acute distress HEENT: normocephalic Respiratory/Chest: chest wall non-tender, lungs clear Cardiovascular: normal peripheral pulses, normal rate Abdomen: normal bowel sounds Microbiology Date/Time Source Procedure Growth Status 09/02/17 18:00 Blood Blood Culture - Preliminary NO GROWTH AFTER 24 HOURS Resulted 09/02/17 17:52 Blood Blood Culture - Preliminary NO GROWTH AFTER 24 HOURS Resulted 09/03/17 05:40 Indwelling Cath Urine Culture - Preliminary NO GROWTH Resulted Current Medications Medications (Trade) Dose Ordered Sig/Adonay Route PRN Reason Start Time Stop Time Status Last Admin Dose Admin Acetaminophen (Tylenol) 650 mg Q6H PRN ORAL Mild Pain/Temp > 100.5 08/21/17 20:00 09/18/17 07:59 09/04/17 10:04 Amlodipine Besylate (Norvasc) 10 mg DAILY NG 08/23/17 09:00 09/22/17 08:59 09/04/17 10:03 Ascorbic Acid (Vitamin C) 500 mg DAILY NG 08/23/17 09:00 09/22/17 08:59 09/04/17 10:05 Baclofen (Lioresal) 10 mg THREE TIMES A DAY NG 08/23/17 09:00 09/22/17 08:59 09/04/17 10:05 Citalopram Hydrobromide (celeXA) 20 mg DAILY GT 08/27/17 09:00 09/18/17 08:59 09/04/17 10:02 Clonidine HCl (Catapres) 0.1 mg Q6H PRN NG SBP > 160mmHg 08/23/17 08:30 09/22/17 08:29 Dextrose (Dextrose 50%) STAT PRN IV Hypoglycemia 08/21/17 20:00 09/20/17 19:59 09/02/17 06:52 Dextrose/Sodium Chloride 1,000 ml @ 100 mls/hr Q10H IV 09/05/17 00:01 09/05/17 09:00 Ferrous Sulfate (Feosol) 300 mg DAILY NG 08/27/17 09:00 09/26/17 08:59 09/04/17 10:02 Insulin Aspart (NovoLOG) EVERY 6 HOURS SUBQ 09/04/17 06:00 09/19/17 08:59 09/04/17 06:18 Insulin Detemir (Levemir) 10 units EVERY 12 HOURS SUBQ 09/05/17 09:00 10/05/17 08:59 Lansoprazole (Prevacid) 30 mg DAILY NG 08/24/17 09:00 09/23/17 08:59 09/04/17 10:05 Levothyroxine Sodium (Synthroid) 75 mcg ACBREAKFAST NG 08/24/17 06:30 09/23/17 06:29 09/04/17 10:04 Losartan Potassium (Cozaar) 50 mg DAILY NG 08/23/17 09:00 09/22/17 08:59 09/04/17 10:06 Multivitamins (Multivitamins) 1 tab DAILY ORAL 08/22/17 09:00 09/18/17 08:59 09/04/17 10:05 Ondansetron HCl (Zofran) 4 mg Q6H PRN NG Nausea & Vomiting 08/26/17 15:30 09/18/17 07:59 Oxycodone/ Acetaminophen (Percocet 5-325) 1 tab EVERY 6 HOURS PRN ORAL Severe Pain (Pain Scale 7-10) 09/02/17 15:45 09/09/17 15:44 09/03/17 19:38 Piperacillin Sod/ Tazobactam Sod 3.375 gm/Sodium Chloride 110 ml @ 27.5 mls/hr EVERY 8 HOURS IVPB 08/31/17 22:00 09/07/17 21:59 09/04/17 05:46 Potassium Chloride (KCl 10% 40mEq Oral solution) 40 meq TWICE A DAY NG 08/24/17 18:00 09/23/17 17:59 09/04/17 10:04 Quetiapine Fumarate (SEROquel) 12.5 mg Q12H PRN ORAL Agitation 08/30/17 11:45 09/29/17 11:44 09/04/17 10:05 Vancomycin HCl (Vanco rx to dose) 1 ea DAILY PRN MISC Per rx protocol 08/28/17 16:15 09/27/17 16:14 Vancomycin HCl 1 gm/Dextrose 275 ml @ 183.708 mls/hr Q24H IVPB 09/01/17 21:00 09/06/17 20:59 09/03/17 21:12 Sánchez Freeman MD Sep 04, 2017 11:42
[2017-09-04] MEDS: oxyCODONE HCL/Acetaminophen 5/325mg ORAL PRN ×2 (13:55→23:07)
[2017-09-04] MEDS: D5 1/2NS 1,000 ML IV SCH (13:56)
[2017-09-04] MEDS ORDERED: Tubing IV Secondary IV ONE (16:57)
[2017-09-04] MEDS ORDERED: D5 1/2NS 1000ml IV ONE (16:57)
[2017-09-04] MEDS: Vancomycin 1gm/D5W 275ml IVPB SCH ×2 (21:00)
--- NOTE | 2017-09-04 21:47 | General Progress Note ---
Assessment/Plan Status: unchanged Assessment/Plan agitated at times Subjective Date patient seen: Sep 04, 2017 Neurologic/Psychiatric: Reports: anxiety, depressed, emotional problems Allergies: Coded Allergies: No Known Allergies (Unverified , 08/18/17) Subjective agitated Objective Last 24 Hour Vital Signs Date Time Temp Pulse Resp B/P (MAP) Pulse Ox O2 Delivery O2 Flow Rate FiO2 09/04/17 20:00 98.2 74 18 108/41 97 Nasal Cannula 3.0 28 09/04/17 16:00 64 09/04/17 16:00 96.0 66 17 108/49 100 Nasal Cannula 3.0 09/04/17 14:54 98.0 09/04/17 12:00 68 09/04/17 12:00 98.0 70 20 105/56 98 Nasal Cannula 3.0 09/04/17 11:03 98.7 09/04/17 10:06 136/78 09/04/17 10:03 69 136/78 09/04/17 08:00 68 09/04/17 08:00 70 09/04/17 08:00 98.7 69 16 136/78 99 Nasal Cannula 3.0 09/04/17 07:40 75 28 126/66 98 Nasal Cannula 3.0 09/04/17 07:30 69 25 118/62 97 Nasal Cannula 3.0 09/04/17 07:15 72 27 122/65 97 Nasal Cannula 3.0 09/04/17 07:10 72 26 120/70 97 Nasal Cannula 3.0 09/04/17 07:08 77 22 98 09/04/17 07:05 73 22 115/71 95 Nasal Cannula 3.0 09/04/17 07:05 72 20 99 09/04/17 07:00 98.1 73 22 112/62 98 Nasal Cannula 3.0 09/04/17 04:15 Nasal Cannula 2.0 28 09/04/17 04:15 96 Nasal Cannula 2.0 28 09/04/17 04:00 97.2 76 18 127/64 94 Nasal Cannula 2.0 09/04/17 04:00 68 09/04/17 00:00 70 09/04/17 00:00 97.0 77 20 126/61 94 Nasal Cannula 2.0 Intake and Output 09/04/17 09/05/17 19:00 07:00 Intake Total 1070.0 ml Output Total 550 ml Balance 520.0 ml Free Water 250 ml IV Total 820.0 ml Output Urine Total 550 ml Laboratory Tests 09/04/17 20:30: Vancomycin Level Trough 6.7 Height (Feet): 5 Height (Inches): 3.00 Weight (Pounds): 113 General Appearance: no apparent distress, alert, confused Neurologic: alert, disoriented, depressed affect Audi Bonilla M.D. Sep 04, 2017 21:47
[2017-09-04] MEDS ORDERED: Vancomycin 1.5gm/D5W 250ml 250 ML IVPB ONE (22:00)
[2017-09-05] VITALS: BP 108/40
[2017-09-05] MEDS: D5 1/2NS 1,000 ML IV SCH
[2017-09-05] MEDS: Piperacillin/Tazobactam 3.375 GM in NS 110 ML IVPB SCH ×2 (01:40→09:00)
[2017-09-05 04:00] VITALS: BP 116/56
[2017-09-05 05:59] LABS: HEMATOCRIT 22.7 % (37.0-47.0); HEMOGLOBIN 7.8 G/DL (12.0-16.0); MEAN CORPUSCULAR VOLUME 97 FL (80-99); PLATELET COUNT 185 K/UL (150-450); RED BLOOD COUNT 2.33 M/UL (4.20-5.40); RED CELL DISTRIBUTION WIDTH 15.6 % (11.6-14.8); WHITE BLOOD COUNT 16.1 K/UL (4.8-10.8)
[2017-09-05] MEDS: NovoLOG Insulin Flexpen SUBQ SCH ×4 (06:11→23:47)
[2017-09-05 06:15] LABS: ANION GAP 8 mmol/L (5-15); BLOOD UREA NITROGEN 4 mg/dL (7-18); CALCIUM 7.5 MG/DL (8.5-10.1); CARBON DIOXIDE 23 MMOL/L (21-32); CHLORIDE 109 MMOL/L (98-107); CREATININE 0.7 MG/DL (0.55-1.30); POTASSIUM 3.8 MMOL/L (3.5-5.1); SODIUM 140 MMOL/L (136-145)
--- NOTE | 2017-09-05 07:26 | General Progress Note ---
Assessment/Plan Assessment/Plan Assessment - Respiratory failure - leukocytosis - Anemia - free water deficit / hypernatremia - resolved - IDDM - s/p PEG Recommendations - Continue TF - GT care - Elevate HOB Subjective Allergies: Coded Allergies: No Known Allergies (Unverified , 08/18/17) Subjective above noted comfortable s/p PEG - POD #1 Objective Last 24 Hour Vital Signs Date Time Temp Pulse Resp B/P (MAP) Pulse Ox O2 Delivery O2 Flow Rate FiO2 09/05/17 04:00 98.1 79 18 116/56 97 Nasal Cannula 3.0 28 09/05/17 04:00 77 09/05/17 00:00 82 09/05/17 00:00 98.1 88 20 108/40 97 Nasal Cannula 3.0 28 09/04/17 20:00 73 09/04/17 20:00 98.2 74 18 108/41 97 Nasal Cannula 3.0 28 09/04/17 19:15 97 Nasal Cannula 2.0 28 09/04/17 19:15 Nasal Cannula 2.0 28 09/04/17 16:00 64 09/04/17 16:00 96.0 66 17 108/49 100 Nasal Cannula 3.0 09/04/17 14:54 98.0 09/04/17 12:00 68 09/04/17 12:00 98.0 70 20 105/56 98 Nasal Cannula 3.0 09/04/17 11:03 98.7 09/04/17 10:06 136/78 09/04/17 10:03 69 136/78 09/04/17 08:00 68 09/04/17 08:00 70 09/04/17 08:00 98.7 69 16 136/78 99 Nasal Cannula 3.0 09/04/17 07:40 75 28 126/66 98 Nasal Cannula 3.0 09/04/17 07:30 69 25 118/62 97 Nasal Cannula 3.0 Laboratory Tests 09/04/17 20:30: Vancomycin Level Trough 6.7 09/05/17 04:30: White Blood Count 16.1H, Red Blood Count 2.33L, Hemoglobin 7.8L, Hematocrit 22.7L, Mean Corpuscular Volume 97, Mean Corpuscular Hemoglobin 33.4H, Mean Corpuscular Hemoglobin Concent 34.3, Red Cell Distribution Width 15.6H, Platelet Count 185, Mean Platelet Volume 10.3H, Neutrophils (%) (Auto) , Lymphocytes (%) (Auto) , Monocytes (%) (Auto) , Eosinophils (%) (Auto) , Basophils (%) (Auto) , Differential Total Cells Counted 100, Neutrophils % ( Manual) 86H, Lymphocytes % (Manual) 10L, Monocytes % (Manual) 2, Eosinophils % ( Manual) 1, Basophils % (Manual) 1, Band Neutrophils 0, Platelet Estimate Adequate, Platelet Morphology Normal, Hypochromasia 3+, Spherocytes 2+, Sodium Level 140, Potassium Level 3.8, Chloride Level 109H, Carbon Dioxide Level 23, Anion Gap 8, Blood Urea Nitrogen 4L, Creatinine 0.7, Estimat Glomerular Filtration Rate > 60, Glucose Level 146H, Calcium Level 7.5L Height (Feet): 5 Height (Inches): 3.00 Weight (Pounds): 112 Objective Thin AA woman NCAT Neck supple Chest: b/l coarse BS RRR soft ND NT (+) GT no edema ERIKA ESPINOAS Sep 05, 2017 07:26
[2017-09-05 08:00] VITALS: BP 123/55
[2017-09-05] MEDS: KCl 10% 40mEq/30ml liquid NG SCH ×2 (09:44→18:10)
[2017-09-05] MEDS: Ferrous Sulfate 300 MG/5 ML UDC NG SCH (09:45)
[2017-09-05] MEDS: Citalopram Hydrobromide 10mg Tab GT SCH (09:47)
[2017-09-05] MEDS: Ascorbic Acid 500mg tab NG SCH (09:48)
[2017-09-05] MEDS: Losartan 50mg tab NG SCH (09:49)
[2017-09-05] MEDS: Levemir Flexpen SUBQ SCH ×2 (10:27→20:57)
[2017-09-05 12:00] VITALS: BP 107/54
[2017-09-05] MEDS: Vancomycin 750mg/NS 250ml 250 ML IVPB SCH ×2 (12:06→21:12)
--- NOTE | 2017-09-05 14:33 | Infectious Diseases Prog Note ---
Assessment/Plan Assessment/Plan ASSESSMENT AND PLAN: 1. sepsis, klebsiella uti, possible pna, leukocytosis and fevers, c.diff. negative, ? fungemia - clinically about the same, sob, ? more lethargic - leukocytosis worse, fevers better - change abx to vancomycin, cefepime, flagyl, diflucan - check sc if possible, labs, chest x-ray -s/p g-tube - bc negative, chest x-ray without change 2. The patient has history of diabetes. 3. Hypertension. 4. Anemia, hypernatremia 5. Respiratory insufficiency. 6. Blood sugar and blood pressure control per primary. 7. Diabetic ketoacidosis. 8. History of anxiety. 9. Depression. 10. Dementia. 11. Chronic pain syndrome. 12. Aspiration risk. 13. Altered mental status. 14. Poor historian. 15. No known allergies. 16. Social history is negative. 17. Family history is noncontributory. 18. MAR was noted. 19. Case was discussed with RN. 20. Notes and records were noted. 21. Skin care protocol. 22. I have reviewed the wounds. I do not think this is her source of sepsis. Continue local wound care protocol. wc - likely colonizer. 23. Continue treatment per Dr. Winn. Subjective Constitutional: Reports: fatigue, other - responsive, Denies: fever HEENT: Reports: congestion Respiratory: Reports: shortness of breath Cardiovascular: Denies: chest pain Gastrointestinal/Abdominal: Denies: nausea, vomiting Genitourinary: Reports: other - + rowe Neurologic: Denies: headache Psychiatric: Reports: no symptoms Skin: Denies: rash Hematologic: Reports: bleeding Musculoskeletal: Reports: pain Allergies: Coded Allergies: No Known Allergies (Unverified , 08/18/17) Objective Vital Signs Last 24 Hour Vital Signs Date Time Temp Pulse Resp B/P (MAP) Pulse Ox O2 Delivery O2 Flow Rate FiO2 09/05/17 12:00 98.5 77 18 107/54 92 Nasal Cannula 1.0 09/05/17 09:49 123/55 09/05/17 09:47 74 123/55 09/05/17 08:00 98.3 74 17 123/55 93 Nasal Cannula 1.0 09/05/17 07:31 Nasal Cannula 2.0 28 09/05/17 07:30 96 Nasal Cannula 2.0 28 09/05/17 04:00 98.1 79 18 116/56 97 Nasal Cannula 3.0 28 09/05/17 04:00 77 09/05/17 00:00 82 09/05/17 00:00 98.1 88 20 108/40 97 Nasal Cannula 3.0 28 09/04/17 20:00 73 09/04/17 20:00 98.2 74 18 108/41 97 Nasal Cannula 3.0 28 09/04/17 19:15 97 Nasal Cannula 2.0 28 09/04/17 19:15 Nasal Cannula 2.0 28 09/04/17 16:00 64 09/04/17 16:00 96.0 66 17 108/49 100 Nasal Cannula 3.0 09/04/17 14:54 98.0 Height (Feet): 5 Height (Inches): 3.00 Weight (Pounds): 112 General Appearance: other - some sob noted, + bm HEENT: normocephalic, atraumatic, anicteric, mucous membranes moist, EOMI, pharynx normal, supple, no JVD Respiratory/Chest: crackles/rales, rhonchi - bilaterally Cardiovascular: normal rate, regular rhythm, no gallop/murmur Abdomen: normal bowel sounds, soft, non tender, no organomegaly, non distended Genitourinary: other - + rowe - urine slt cloudy Extremities: no cyanosis Skin: no rash 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 The pleural spaces are clear. The heart size is normal. There is a nasogastric tube again demonstrated. Left shoulder hardware is again demonstrated 09/01 - chest x-ray: Impression: Unchanged, over one day, findings as above. Findings: Interstitial opacities again appear prominent bilaterally. Heart size is stable. NG tube is noted and in good position. Impression: No radiographic change. Interstitial opacities nonspecific 09/04 - chest x-ray: Comparison: 09/01/2017 Findings: Bilateral diffuse interstitial and alveolar disease is unchanged. The heart size is normal. Pleural spaces are clear Impression: Unchanged, over 3 days, findings as above. Microbiology Date/Time Source Procedure Growth Status 09/02/17 18:00 Blood Blood Culture - Preliminary NO GROWTH AFTER 48 HOURS Resulted 09/02/17 17:52 Blood Blood Culture - Preliminary NO GROWTH AFTER 48 HOURS Resulted 09/03/17 05:40 Indwelling Cath Urine Culture - Preliminary Resulted Laboratory Tests Test 09/04/17 20:30 09/05/17 04:30 Vancomycin Level Trough 6.7 ug/mL (5.0-12.0) White Blood Count 16.1 K/UL (4.8-10.8) H Red Blood Count 2.33 M/UL (4.20-5.40) L Hemoglobin 7.8 G/DL (12.0-16.0) L Hematocrit 22.7 % (37.0-47.0) L Mean Corpuscular Volume 97 FL (80-99) Mean Corpuscular Hemoglobin 33.4 PG (27.0-31.0) H Mean Corpuscular Hemoglobin Concent 34.3 G/DL (32.0-36.0) Red Cell Distribution Width 15.6 % (11.6-14.8) H Platelet Count 185 K/UL (150-450) Mean Platelet Volume 10.3 FL (6.5-10.1) H Neutrophils (%) (Auto) % (45.0-75.0) Lymphocytes (%) (Auto) % (20.0-45.0) Monocytes (%) (Auto) % (1.0-10.0) Eosinophils (%) (Auto) % (0.0-3.0) Basophils (%) (Auto) % (0.0-2.0) Differential Total Cells Counted 100 Neutrophils % (Manual) 86 % (45-75) H Lymphocytes % (Manual) 10 % (20-45) L Monocytes % (Manual) 2 % (1-10) Eosinophils % (Manual) 1 % (0-3) Basophils % (Manual) 1 % (0-2) Band Neutrophils 0 % (0-8) Platelet Estimate Adequate Platelet Morphology Normal Hypochromasia 3+ Spherocytes 2+ Sodium Level 140 MMOL/L (136-145) Potassium Level 3.8 MMOL/L (3.5-5.1) Chloride Level 109 MMOL/L (98-107) H Carbon Dioxide Level 23 MMOL/L (21-32) Anion Gap 8 mmol/L (5-15) Blood Urea Nitrogen 4 mg/dL (7-18) L Creatinine 0.7 MG/DL (0.55-1.30) Estimat Glomerular Filtration Rate > 60 mL/min (>60) Glucose Level 146 MG/DL (74-106) H Calcium Level 7.5 MG/DL (8.5-10.1) L Current Medications Medications (Trade) Dose Ordered Sig/Adonay Route PRN Reason Start Time Stop Time Status Last Admin Dose Admin Acetaminophen (Tylenol) 650 mg Q6H PRN ORAL Mild Pain/Temp > 100.5 08/21/17 20:00 09/18/17 07:59 09/04/17 10:04 Amlodipine Besylate (Norvasc) 10 mg DAILY NG 08/23/17 09:00 09/22/17 08:59 09/05/17 09:47 Ascorbic Acid (Vitamin C) 500 mg DAILY NG 08/23/17 09:00 09/22/17 08:59 09/05/17 09:48 Baclofen (Lioresal) 10 mg THREE TIMES A DAY NG 08/23/17 09:00 09/22/17 08:59 09/05/17 09:48 Citalopram Hydrobromide (celeXA) 20 mg DAILY GT 08/27/17 09:00 09/18/17 08:59 09/05/17 09:47 Clonidine HCl (Catapres) 0.1 mg Q6H PRN NG SBP > 160mmHg 08/23/17 08:30 09/22/17 08:29 Dextrose (Dextrose 50%) STAT PRN IV Hypoglycemia 08/21/17 20:00 09/20/17 19:59 09/02/17 06:52 Ferrous Sulfate (Feosol) 300 mg DAILY NG 08/27/17 09:00 09/26/17 08:59 09/05/17 09:45 Insulin Aspart (NovoLOG) EVERY 6 HOURS SUBQ 09/04/17 06:00 09/19/17 08:59 09/05/17 11:58 Insulin Detemir (Levemir) 10 units EVERY 12 HOURS SUBQ 09/05/17 09:00 10/05/17 08:59 09/05/17 10:27 Lansoprazole (Prevacid) 30 mg DAILY NG 08/24/17 09:00 09/23/17 08:59 09/05/17 09:47 Levothyroxine Sodium (Synthroid) 75 mcg ACBREAKFAST NG 08/24/17 06:30 09/23/17 06:29 09/04/17 10:04 Losartan Potassium (Cozaar) 50 mg DAILY NG 08/23/17 09:00 09/22/17 08:59 09/05/17 09:49 Multivitamins (Multivitamins) 1 tab DAILY ORAL 08/22/17 09:00 09/18/17 08:59 09/05/17 09:46 Ondansetron HCl (Zofran) 4 mg Q6H PRN NG Nausea & Vomiting 08/26/17 15:30 09/18/17 07:59 Oxycodone/ Acetaminophen (Percocet 5-325) 1 tab EVERY 6 HOURS PRN ORAL Severe Pain (Pain Scale 7-10) 09/02/17 15:45 09/09/17 15:44 09/04/17 23:07 Piperacillin Sod/ Tazobactam Sod 3.375 gm/Sodium Chloride 110 ml @ 27.5 mls/hr 0100,0900,1700 IVPB 09/05/17 01:00 09/07/17 21:59 09/05/17 09:00 Potassium Chloride (KCl 10% 40mEq Oral solution) 40 meq TWICE A DAY NG 08/24/17 18:00 09/23/17 17:59 09/05/17 09:44 Quetiapine Fumarate (SEROquel) 12.5 mg Q12H PRN ORAL Agitation 08/30/17 11:45 09/29/17 11:44 09/05/17 09:47 Vancomycin HCl (Vanco rx to dose) 1 ea DAILY PRN MISC Per rx protocol 08/28/17 16:15 09/27/17 16:14 Vancomycin/Sodium Chloride 250 ml @ 166.667 mls/hr Q12HR@1000,2200 IVPB 09/05/17 10:00 09/10/17 09:59 09/05/17 12:06 YASIR RUEDA Sep 05, 2017 14:33
[2017-09-05 16:00] VITALS: BP 126/61
--- NOTE | 2017-09-05 16:49 | General Progress Note ---
Assessment/Plan Status: stable Assessment/Plan agitated at times much improved Subjective Neurologic/Psychiatric: Reports: anxiety, depressed, emotional problems Allergies: Coded Allergies: No Known Allergies (Unverified , 08/18/17) Subjective calmer today and less agitated/ Objective Last 24 Hour Vital Signs Date Time Temp Pulse Resp B/P (MAP) Pulse Ox O2 Delivery O2 Flow Rate FiO2 09/05/17 12:00 98.5 77 18 107/54 92 Nasal Cannula 1.0 09/05/17 11:45 69 09/05/17 09:49 123/55 09/05/17 09:47 74 123/55 09/05/17 08:00 98.3 74 17 123/55 93 Nasal Cannula 1.0 09/05/17 07:39 82 09/05/17 07:31 Nasal Cannula 2.0 28 09/05/17 07:30 96 Nasal Cannula 2.0 28 09/05/17 04:00 98.1 79 18 116/56 97 Nasal Cannula 3.0 28 09/05/17 04:00 77 09/05/17 00:00 82 09/05/17 00:00 98.1 88 20 108/40 97 Nasal Cannula 3.0 28 09/04/17 20:00 73 09/04/17 20:00 98.2 74 18 108/41 97 Nasal Cannula 3.0 28 09/04/17 19:15 97 Nasal Cannula 2.0 28 09/04/17 19:15 Nasal Cannula 2.0 28 Laboratory Tests 09/04/17 20:30: Vancomycin Level Trough 6.7 09/05/17 04:30: White Blood Count 16.1H, Red Blood Count 2.33L, Hemoglobin 7.8L, Hematocrit 22.7L, Mean Corpuscular Volume 97, Mean Corpuscular Hemoglobin 33.4H, Mean Corpuscular Hemoglobin Concent 34.3, Red Cell Distribution Width 15.6H, Platelet Count 185, Mean Platelet Volume 10.3H, Neutrophils (%) (Auto) , Lymphocytes (%) (Auto) , Monocytes (%) (Auto) , Eosinophils (%) (Auto) , Basophils (%) (Auto) , Differential Total Cells Counted 100, Neutrophils % ( Manual) 86H, Lymphocytes % (Manual) 10L, Monocytes % (Manual) 2, Eosinophils % ( Manual) 1, Basophils % (Manual) 1, Band Neutrophils 0, Platelet Estimate Adequate, Platelet Morphology Normal, Hypochromasia 3+, Spherocytes 2+, Sodium Level 140, Potassium Level 3.8, Chloride Level 109H, Carbon Dioxide Level 23, Anion Gap 8, Blood Urea Nitrogen 4L, Creatinine 0.7, Estimat Glomerular Filtration Rate > 60, Glucose Level 146H, Calcium Level 7.5L Height (Feet): 5 Height (Inches): 3.00 Weight (Pounds): 112 General Appearance: no apparent distress, alert Neurologic: alert, oriented x 3, responsive Audi Bonilla M.D. Sep 05, 2017 16:49
--- NOTE | 2017-09-05 18:08 | Pulmonology Progress Note ---
Assessment/Plan Assessment/Plan DKA, resolved DM w hypoglycemia, now stable UTI sepsis htn anxiety, depression chronic pain on meds AMS, improved but still confused lactic acidosis respiratory failure, interstitial edema Hypernatremia, dehydration PEG done Abx per ID DM rx per Dr Andrade rx UTI, sepsis; cultures neg disc w RN DC planning to SNF taper O2 Subjective Interval Events: S/p PEG; remains on abx Constitutional: Reports: no symptoms HEENT: Repors: no symptoms Respiratory: Reports: no symptoms Cardiovascular: Reports: no symptoms Gastrointestinal/Abdominal: Reports: no symptoms Allergies: Coded Allergies: No Known Allergies (Unverified , 08/18/17) Objective Last 24 Hour Vital Signs Date Time Temp Pulse Resp B/P (MAP) Pulse Ox O2 Delivery O2 Flow Rate FiO2 09/05/17 16:00 98.7 77 17 126/61 93 Nasal Cannula 1.0 09/05/17 12:00 98.5 77 18 107/54 92 Nasal Cannula 1.0 09/05/17 11:45 69 09/05/17 09:49 123/55 09/05/17 09:47 74 123/55 09/05/17 08:00 98.3 74 17 123/55 93 Nasal Cannula 1.0 09/05/17 07:39 82 09/05/17 07:31 Nasal Cannula 2.0 28 09/05/17 07:30 96 Nasal Cannula 2.0 28 09/05/17 04:00 98.1 79 18 116/56 97 Nasal Cannula 3.0 28 09/05/17 04:00 77 09/05/17 00:00 82 09/05/17 00:00 98.1 88 20 108/40 97 Nasal Cannula 3.0 28 09/04/17 20:00 73 09/04/17 20:00 98.2 74 18 108/41 97 Nasal Cannula 3.0 28 09/04/17 19:15 97 Nasal Cannula 2.0 28 09/04/17 19:15 Nasal Cannula 2.0 28 Intake and Output 09/05/17 09/06/17 19:00 07:00 Output Total 800 ml Balance -800 ml Output Urine Total 800 ml General Appearance: no acute distress HEENT: normocephalic Respiratory/Chest: chest wall non-tender, decreased breath sounds Cardiovascular: normal peripheral pulses, normal rate Abdomen: normal bowel sounds, soft, non tender Microbiology Date/Time Source Procedure Growth Status 09/03/17 05:40 Indwelling Cath Urine Culture - Preliminary Resulted Laboratory Tests 09/04/17 20:30: Vancomycin Level Trough 6.7 09/05/17 04:30: White Blood Count 16.1H, Red Blood Count 2.33L, Hemoglobin 7.8L, Hematocrit 22.7L, Mean Corpuscular Volume 97, Mean Corpuscular Hemoglobin 33.4H, Mean Corpuscular Hemoglobin Concent 34.3, Red Cell Distribution Width 15.6H, Platelet Count 185, Mean Platelet Volume 10.3H, Neutrophils (%) (Auto) , Lymphocytes (%) (Auto) , Monocytes (%) (Auto) , Eosinophils (%) (Auto) , Basophils (%) (Auto) , Differential Total Cells Counted 100, Neutrophils % ( Manual) 86H, Lymphocytes % (Manual) 10L, Monocytes % (Manual) 2, Eosinophils % ( Manual) 1, Basophils % (Manual) 1, Band Neutrophils 0, Platelet Estimate Adequate, Platelet Morphology Normal, Hypochromasia 3+, Spherocytes 2+, Sodium Level 140, Potassium Level 3.8, Chloride Level 109H, Carbon Dioxide Level 23, Anion Gap 8, Blood Urea Nitrogen 4L, Creatinine 0.7, Estimat Glomerular Filtration Rate > 60, Glucose Level 146H, Calcium Level 7.5L Current Medications Medications (Trade) Dose Ordered Sig/Adonay Route PRN Reason Start Time Stop Time Status Last Admin Dose Admin Acetaminophen (Tylenol) 650 mg Q6H PRN ORAL Mild Pain/Temp > 100.5 08/21/17 20:00 09/18/17 07:59 09/04/17 10:04 Amlodipine Besylate (Norvasc) 10 mg DAILY NG 08/23/17 09:00 09/22/17 08:59 09/05/17 09:47 Ascorbic Acid (Vitamin C) 500 mg DAILY NG 08/23/17 09:00 09/22/17 08:59 09/05/17 09:48 Baclofen (Lioresal) 10 mg THREE TIMES A DAY NG 08/23/17 09:00 09/22/17 08:59 09/05/17 09:48 Cefepime HCl 2 gm/ Dextrose 100 ml @ 200 mls/hr Q24H IVPB 09/05/17 17:00 09/05/17 23:59 Cefepime HCl 2 gm/ Sodium Chloride 110 ml @ 220 mls/hr Q24H IV 09/06/17 17:00 09/13/17 16:59 Citalopram Hydrobromide (celeXA) 20 mg DAILY GT 08/27/17 09:00 09/18/17 08:59 09/05/17 09:47 Clonidine HCl (Catapres) 0.1 mg Q6H PRN NG SBP > 160mmHg 08/23/17 08:30 09/22/17 08:29 Dextrose (Dextrose 50%) STAT PRN IV Hypoglycemia 08/21/17 20:00 09/20/17 19:59 09/02/17 06:52 Ferrous Sulfate (Feosol) 300 mg DAILY NG 08/27/17 09:00 09/26/17 08:59 09/05/17 09:45 Fluconazole (Diflucan) 200 mg DAILY ORAL 09/05/17 15:30 09/12/17 15:29 Insulin Aspart (NovoLOG) EVERY 6 HOURS SUBQ 09/04/17 06:00 09/19/17 08:59 09/05/17 11:58 Insulin Detemir (Levemir) 10 units EVERY 12 HOURS SUBQ 09/05/17 09:00 10/05/17 08:59 09/05/17 10:27 Lansoprazole (Prevacid) 30 mg DAILY NG 08/24/17 09:00 09/23/17 08:59 09/05/17 09:47 Levothyroxine Sodium (Synthroid) 75 mcg ACBREAKFAST NG 08/24/17 06:30 09/23/17 06:29 09/04/17 10:04 Losartan Potassium (Cozaar) 50 mg DAILY NG 08/23/17 09:00 09/22/17 08:59 09/05/17 09:49 Metronidazole (Flagyl) 500 mg EVERY 8 HOURS ORAL 09/05/17 22:00 09/12/17 21:59 Multivitamins (Multivitamins) 1 tab DAILY ORAL 08/22/17 09:00 09/18/17 08:59 09/05/17 09:46 Ondansetron HCl (Zofran) 4 mg Q6H PRN NG Nausea & Vomiting 08/26/17 15:30 09/18/17 07:59 Oxycodone/ Acetaminophen (Percocet 5-325) 1 tab EVERY 6 HOURS PRN ORAL Severe Pain (Pain Scale 7-10) 09/02/17 15:45 09/09/17 15:44 09/04/17 23:07 Potassium Chloride (KCl 10% 40mEq Oral solution) 40 meq TWICE A DAY NG 08/24/17 18:00 09/23/17 17:59 09/05/17 09:44 Quetiapine Fumarate (SEROquel) 12.5 mg Q12H PRN ORAL Agitation 08/30/17 11:45 09/29/17 11:44 09/05/17 09:47 Vancomycin HCl (Vanco rx to dose) 1 ea DAILY PRN MISC Per rx protocol 08/28/17 16:15 09/27/17 16:14 Vancomycin/Sodium Chloride 250 ml @ 166.667 mls/hr Q12HR@1000,2200 IVPB 09/05/17 10:00 09/10/17 09:59 09/05/17 12:06 Sánchez Freeman MD Sep 05, 2017 18:08
[2017-09-05] MEDS: Fluconazole 100mg tab ORAL SCH (18:10)
[2017-09-05] MEDS: oxyCODONE HCL/Acetaminophen 5/325mg ORAL PRN ×2 (18:42→20:58)
[2017-09-05 20:00] VITALS: BP 134/60
[2017-09-05] MEDS: metroNIDAZOLE 500mg tab ORAL SCH (21:05)
[2017-09-06] VITALS: BP 137/75
[2017-09-06 04:00] VITALS: BP 140/66
[2017-09-06] MEDS: metroNIDAZOLE 500mg tab ORAL SCH ×3 (05:20→22:19)
[2017-09-06] MEDS: oxyCODONE HCL/Acetaminophen 5/325mg ORAL PRN ×3 (05:20→17:27)
[2017-09-06] MEDS: NovoLOG Insulin Flexpen SUBQ SCH ×3 (05:22→17:48)
[2017-09-06 05:27] LABS: HEMATOCRIT 23.4 % (37.0-47.0); HEMOGLOBIN 7.9 G/DL (12.0-16.0); MEAN CORPUSCULAR VOLUME 99 FL (80-99); PLATELET COUNT 183 K/UL (150-450); RED BLOOD COUNT 2.36 M/UL (4.20-5.40); RED CELL DISTRIBUTION WIDTH 15.9 % (11.6-14.8); WHITE BLOOD COUNT 15.9 K/UL (4.8-10.8)
[2017-09-06 06:22] LABS: ANION GAP 13 mmol/L (5-15); BLOOD UREA NITROGEN 6 mg/dL (7-18); CALCIUM 7.7 MG/DL (8.5-10.1); CARBON DIOXIDE 18 MMOL/L (21-32); CHLORIDE 110 MMOL/L (98-107); CREATININE 0.8 MG/DL (0.55-1.30); POTASSIUM 4.1 MMOL/L (3.5-5.1); SODIUM 141 MMOL/L (136-145)
--- NOTE | 2017-09-06 07:04 | General Progress Note ---
Assessment/Plan Assessment/Plan Assessment - Respiratory failure - leukocytosis - Anemia - free water deficit / hypernatremia - resolved - IDDM - s/p PEG Recommendations - Continue TF - GT care - Elevate HOB - abx Subjective Constitutional: Denies: diaphoresis Allergies: Coded Allergies: No Known Allergies (Unverified , 08/18/17) Subjective above noted comfortable s/p PEG - POD #2 tolerating TF Objective Last 24 Hour Vital Signs Date Time Temp Pulse Resp B/P (MAP) Pulse Ox O2 Delivery O2 Flow Rate FiO2 09/06/17 04:00 97.2 97 16 140/66 100 Nasal Cannula 09/06/17 03:37 90 09/06/17 00:00 98.1 93 14 137/75 100 Nasal Cannula 0.5 09/06/17 00:00 93 09/05/17 20:00 97.3 90 18 134/60 92 Venturi Mask 1.5 09/05/17 20:00 97 09/05/17 19:31 98.7 09/05/17 16:00 70 09/05/17 16:00 98.7 77 17 126/61 93 Nasal Cannula 1.0 09/05/17 12:00 98.5 77 18 107/54 92 Nasal Cannula 1.0 09/05/17 11:45 69 09/05/17 09:49 123/55 09/05/17 09:47 74 123/55 09/05/17 08:00 98.3 74 17 123/55 93 Nasal Cannula 1.0 09/05/17 07:39 82 09/05/17 07:31 Nasal Cannula 2.0 28 09/05/17 07:30 96 Nasal Cannula 2.0 28 Laboratory Tests 09/06/17 04:26: White Blood Count 15.9H, Red Blood Count 2.36L, Hemoglobin 7.9L, Hematocrit 23.4L, Mean Corpuscular Volume 99, Mean Corpuscular Hemoglobin 33.6H, Mean Corpuscular Hemoglobin Concent 33.9, Red Cell Distribution Width 15.9H, Platelet Count 183, Mean Platelet Volume 8.6, Neutrophils (%) (Auto) , Lymphocytes (%) (Auto) , Monocytes (%) (Auto) , Eosinophils (%) (Auto) , Basophils (%) (Auto) , Neutrophils % (Manual) [Pending], Lymphocytes % (Manual) [Pending], Platelet Estimate [Pending], Platelet Morphology [Pending], Sodium Level 141, Potassium Level 4.1, Chloride Level 110H, Carbon Dioxide Level 18L, Anion Gap 13, Blood Urea Nitrogen 6L, Creatinine 0.8, Estimat Glomerular Filtration Rate > 60, Glucose Level 122H, Calcium Level 7.7L Height (Feet): 5 Height (Inches): 3.00 Weight (Pounds): 114 Objective Thin AA woman NCAT Neck supple Chest: b/l coarse BS RRR soft ND NT (+) GT no edema ERIKA ESPINOSA Sep 06, 2017 07:04
[2017-09-06 08:00] VITALS: BP 123/62
[2017-09-06] MEDS: Levemir Flexpen SUBQ SCH ×2 (09:00→09:18)
[2017-09-06] MEDS: KCl 10% 40mEq/30ml liquid NG SCH ×2 (09:10→17:46)
[2017-09-06] MEDS: Citalopram Hydrobromide 10mg Tab GT SCH (09:11)
[2017-09-06] MEDS: Ferrous Sulfate 300 MG/5 ML UDC NG SCH (09:11)
[2017-09-06] MEDS: Ascorbic Acid 500mg tab NG SCH (09:12)
[2017-09-06] MEDS: Losartan 50mg tab NG SCH (09:12)
[2017-09-06] MEDS: Fluconazole 100mg tab ORAL SCH (09:17)
[2017-09-06] MEDS: Vancomycin 750mg/NS 250ml 250 ML IVPB SCH ×2 (10:37→22:19)
[2017-09-06 12:03] VITALS: BP 132/71
--- NOTE | 2017-09-06 14:33 | General Progress Note ---
Assessment/Plan Problem List: (1) Altered level of consciousness ICD Codes: R40.4 - Transient alteration of awareness SNOMED: 3555817 (2) Dysphagia ICD Codes: R13.10 - Dysphagia, unspecified SNOMED: 73441534, 289766398 (3) Rhabdomyolysis ICD Codes: M62.82 - Rhabdomyolysis SNOMED: 304016100, 009601399 (4) Diabetes mellitus out of control ICD Codes: E11.65 - Type 2 diabetes mellitus with hyperglycemia SNOMED: 234043635, 01498874 (5) Altered mental status, unspecified ICD Codes: R41.82 - Altered mental status, unspecified SNOMED: 378715613 (6) Hyperkalemia ICD Codes: E87.5 - Hyperkalemia SNOMED: 96033561 (7) DKA (diabetic ketoacidoses) ICD Codes: E13.10 - Other specified diabetes mellitus with ketoacidosis without coma SNOMED: 15374973, 726652568 (8) Sepsis ICD Codes: A41.9 - Sepsis, unspecified organism SNOMED: 05244805 (9) Hypothyroidism ICD Codes: E03.9 - Hypothyroidism, unspecified SNOMED: 98677035 (10) Hyperglycemia ICD Codes: R73.9 - Hyperglycemia, unspecified SNOMED: 83749544 Assessment/Plan dc plan in process, financial issue d/w CM, increase levemir Subjective ROS Limited/Unobtainable: Yes Allergies: Coded Allergies: No Known Allergies (Unverified , 08/18/17) Objective Last 24 Hour Vital Signs Date Time Temp Pulse Resp B/P (MAP) Pulse Ox O2 Delivery O2 Flow Rate FiO2 09/06/17 12:39 94 09/06/17 12:24 97.4 09/06/17 12:03 97.4 94 20 132/71 92 Nasal Cannula 1.0 09/06/17 09:12 123/62 09/06/17 09:12 93 123/62 09/06/17 08:00 98.4 95 17 123/62 95 Nasal Cannula 1.0 09/06/17 08:00 93 09/06/17 04:00 97.2 97 16 140/66 100 Nasal Cannula 09/06/17 03:37 90 09/06/17 00:00 98.1 93 14 137/75 100 Nasal Cannula 0.5 09/06/17 00:00 93 09/05/17 20:00 97.3 90 18 134/60 92 Venturi Mask 1.5 09/05/17 20:00 97 09/05/17 16:00 70 09/05/17 16:00 98.7 77 17 126/61 93 Nasal Cannula 1.0 Intake and Output 09/06/17 09/07/17 19:00 07:00 Intake Total 735.000 ml Balance 735.000 ml Free Water 100 ml IV Total 250.000 ml Tube Feeding 385 ml Laboratory Tests 09/06/17 04:26: White Blood Count 15.9H, Red Blood Count 2.36L, Hemoglobin 7.9L, Hematocrit 23.4L, Mean Corpuscular Volume 99, Mean Corpuscular Hemoglobin 33.6H, Mean Corpuscular Hemoglobin Concent 33.9, Red Cell Distribution Width 15.9H, Platelet Count 183, Mean Platelet Volume 8.6, Neutrophils (%) (Auto) , Lymphocytes (%) (Auto) , Monocytes (%) (Auto) , Eosinophils (%) (Auto) , Basophils (%) (Auto) , Differential Total Cells Counted 100, Neutrophils % ( Manual) 78H, Lymphocytes % (Manual) 11L, Monocytes % (Manual) 6, Eosinophils % ( Manual) 2, Basophils % (Manual) 0, Band Neutrophils 3, Platelet Estimate Adequate, Platelet Morphology Normal, Anisocytosis 1+, Macrocytosis 1+, Roby Cells 1+, Sodium Level 141, Potassium Level 4.1, Chloride Level 110H, Carbon Dioxide Level 18L, Anion Gap 13, Blood Urea Nitrogen 6L, Creatinine 0.8, Estimat Glomerular Filtration Rate > 60, Glucose Level 122H, Calcium Level 7.7L Height (Feet): 5 Height (Inches): 3.00 Weight (Pounds): 114 General Appearance: no apparent distress, alert, confused EENT: PERRL/EOMI Neck: normal alignment Cardiovascular: normal rate, regular rhythm Respiratory/Chest: lungs clear Abdomen: non tender, soft Edema: no edema noted Arm (L), no edema noted Arm (R), no edema noted Leg (L), no edema noted Leg (R), no edema noted Pedal (L), no edema noted Pedal (R), no edema noted Generalized Neurologic: disoriented Skin: normal pigmentation KRISTIE BIRCH Sep 06, 2017 14:33
--- NOTE | 2017-09-06 14:33 | General Progress Note ---
Assessment/Plan Problem List: (1) Altered level of consciousness ICD Codes: R40.4 - Transient alteration of awareness SNOMED: 5837021 (2) Dysphagia ICD Codes: R13.10 - Dysphagia, unspecified SNOMED: 27672277, 133860121 (3) Rhabdomyolysis ICD Codes: M62.82 - Rhabdomyolysis SNOMED: 215931483, 285586975 (4) Diabetes mellitus out of control ICD Codes: E11.65 - Type 2 diabetes mellitus with hyperglycemia SNOMED: 725148626, 01236820 (5) Altered mental status, unspecified ICD Codes: R41.82 - Altered mental status, unspecified SNOMED: 244773515 (6) Hyperkalemia ICD Codes: E87.5 - Hyperkalemia SNOMED: 34776364 (7) DKA (diabetic ketoacidoses) ICD Codes: E13.10 - Other specified diabetes mellitus with ketoacidosis without coma SNOMED: 59014917, 004350485 (8) Sepsis ICD Codes: A41.9 - Sepsis, unspecified organism SNOMED: 88320206 (9) Hypothyroidism ICD Codes: E03.9 - Hypothyroidism, unspecified SNOMED: 48775761 (10) Hyperglycemia ICD Codes: R73.9 - Hyperglycemia, unspecified SNOMED: 51330411 Assessment/Plan dc plan in process, financial issue d/w CM, increase levemir Subjective ROS Limited/Unobtainable: Yes Allergies: Coded Allergies: No Known Allergies (Unverified , 08/18/17) Objective Last 24 Hour Vital Signs Date Time Temp Pulse Resp B/P (MAP) Pulse Ox O2 Delivery O2 Flow Rate FiO2 09/06/17 12:39 94 09/06/17 12:24 97.4 09/06/17 12:03 97.4 94 20 132/71 92 Nasal Cannula 1.0 09/06/17 09:12 123/62 09/06/17 09:12 93 123/62 09/06/17 08:00 98.4 95 17 123/62 95 Nasal Cannula 1.0 09/06/17 08:00 93 09/06/17 04:00 97.2 97 16 140/66 100 Nasal Cannula 09/06/17 03:37 90 09/06/17 00:00 98.1 93 14 137/75 100 Nasal Cannula 0.5 09/06/17 00:00 93 09/05/17 20:00 97.3 90 18 134/60 92 Venturi Mask 1.5 09/05/17 20:00 97 09/05/17 16:00 70 09/05/17 16:00 98.7 77 17 126/61 93 Nasal Cannula 1.0 Intake and Output 09/06/17 09/07/17 19:00 07:00 Intake Total 735.000 ml Balance 735.000 ml Free Water 100 ml IV Total 250.000 ml Tube Feeding 385 ml Laboratory Tests 09/06/17 04:26: White Blood Count 15.9H, Red Blood Count 2.36L, Hemoglobin 7.9L, Hematocrit 23.4L, Mean Corpuscular Volume 99, Mean Corpuscular Hemoglobin 33.6H, Mean Corpuscular Hemoglobin Concent 33.9, Red Cell Distribution Width 15.9H, Platelet Count 183, Mean Platelet Volume 8.6, Neutrophils (%) (Auto) , Lymphocytes (%) (Auto) , Monocytes (%) (Auto) , Eosinophils (%) (Auto) , Basophils (%) (Auto) , Differential Total Cells Counted 100, Neutrophils % ( Manual) 78H, Lymphocytes % (Manual) 11L, Monocytes % (Manual) 6, Eosinophils % ( Manual) 2, Basophils % (Manual) 0, Band Neutrophils 3, Platelet Estimate Adequate, Platelet Morphology Normal, Anisocytosis 1+, Macrocytosis 1+, [place] Cells 1+, Sodium Level 141, Potassium Level 4.1, Chloride Level 110H, Carbon Dioxide Level 18L, Anion Gap 13, Blood Urea Nitrogen 6L, Creatinine 0.8, Estimat Glomerular Filtration Rate > 60, Glucose Level 122H, Calcium Level 7.7L Height (Feet): 5 Height (Inches): 3.00 Weight (Pounds): 114 General Appearance: no apparent distress, alert, confused EENT: PERRL/EOMI Neck: normal alignment Cardiovascular: normal rate, regular rhythm Respiratory/Chest: lungs clear Abdomen: non tender, soft Edema: no edema noted Arm (L), no edema noted Arm (R), no edema noted Leg (L), no edema noted Leg (R), no edema noted Pedal (L), no edema noted Pedal (R), no edema noted Generalized Neurologic: disoriented Skin: normal pigmentation KRISTIE BIRCH Sep 06, 2017 14:33
--- NOTE | 2017-09-06 14:33 | General Progress Note ---
Assessment/Plan Problem List: (1) Altered level of consciousness ICD Codes: R40.4 - Transient alteration of awareness SNOMED: 0728429 (2) Dysphagia ICD Codes: R13.10 - Dysphagia, unspecified SNOMED: 49458692, 040933008 (3) Rhabdomyolysis ICD Codes: M62.82 - Rhabdomyolysis SNOMED: 380941822, 568833019 (4) Diabetes mellitus out of control ICD Codes: E11.65 - Type 2 diabetes mellitus with hyperglycemia SNOMED: 975594426, 00903074 (5) Altered mental status, unspecified ICD Codes: R41.82 - Altered mental status, unspecified SNOMED: 543087491 (6) Hyperkalemia ICD Codes: E87.5 - Hyperkalemia SNOMED: 46678026 (7) DKA (diabetic ketoacidoses) ICD Codes: E13.10 - Other specified diabetes mellitus with ketoacidosis without coma SNOMED: 16202807, 184747930 (8) Sepsis ICD Codes: A41.9 - Sepsis, unspecified organism SNOMED: 19778041 (9) Hypothyroidism ICD Codes: E03.9 - Hypothyroidism, unspecified SNOMED: 21531497 (10) Hyperglycemia ICD Codes: R73.9 - Hyperglycemia, unspecified SNOMED: 03505788 Assessment/Plan dc plan in process, financial issue d/w CM, increase levemir Subjective ROS Limited/Unobtainable: Yes Allergies: Coded Allergies: No Known Allergies (Unverified , 08/18/17) Objective Last 24 Hour Vital Signs Date Time Temp Pulse Resp B/P (MAP) Pulse Ox O2 Delivery O2 Flow Rate FiO2 09/06/17 12:39 94 09/06/17 12:24 97.4 09/06/17 12:03 97.4 94 20 132/71 92 Nasal Cannula 1.0 09/06/17 09:12 123/62 09/06/17 09:12 93 123/62 09/06/17 08:00 98.4 95 17 123/62 95 Nasal Cannula 1.0 09/06/17 08:00 93 09/06/17 04:00 97.2 97 16 140/66 100 Nasal Cannula 09/06/17 03:37 90 09/06/17 00:00 98.1 93 14 137/75 100 Nasal Cannula 0.5 09/06/17 00:00 93 09/05/17 20:00 97.3 90 18 134/60 92 Venturi Mask 1.5 09/05/17 20:00 97 09/05/17 16:00 70 09/05/17 16:00 98.7 77 17 126/61 93 Nasal Cannula 1.0 Intake and Output 09/06/17 09/07/17 19:00 07:00 Intake Total 735.000 ml Balance 735.000 ml Free Water 100 ml IV Total 250.000 ml Tube Feeding 385 ml Laboratory Tests 09/06/17 04:26: White Blood Count 15.9H, Red Blood Count 2.36L, Hemoglobin 7.9L, Hematocrit 23.4L, Mean Corpuscular Volume 99, Mean Corpuscular Hemoglobin 33.6H, Mean Corpuscular Hemoglobin Concent 33.9, Red Cell Distribution Width 15.9H, Platelet Count 183, Mean Platelet Volume 8.6, Neutrophils (%) (Auto) , Lymphocytes (%) (Auto) , Monocytes (%) (Auto) , Eosinophils (%) (Auto) , Basophils (%) (Auto) , Differential Total Cells Counted 100, Neutrophils % ( Manual) 78H, Lymphocytes % (Manual) 11L, Monocytes % (Manual) 6, Eosinophils % ( Manual) 2, Basophils % (Manual) 0, Band Neutrophils 3, Platelet Estimate Adequate, Platelet Morphology Normal, Anisocytosis 1+, Macrocytosis 1+, [place] Cells 1+, Sodium Level 141, Potassium Level 4.1, Chloride Level 110H, Carbon Dioxide Level 18L, Anion Gap 13, Blood Urea Nitrogen 6L, Creatinine 0.8, Estimat Glomerular Filtration Rate > 60, Glucose Level 122H, Calcium Level 7.7L Height (Feet): 5 Height (Inches): 3.00 Weight (Pounds): 114 General Appearance: no apparent distress, alert, confused EENT: PERRL/EOMI Neck: normal alignment Cardiovascular: normal rate, regular rhythm Respiratory/Chest: lungs clear Abdomen: non tender, soft Edema: no edema noted Arm (L), no edema noted Arm (R), no edema noted Leg (L), no edema noted Leg (R), no edema noted Pedal (L), no edema noted Pedal (R), no edema noted Generalized Neurologic: disoriented Skin: normal pigmentation KRISTIE BIRCH Sep 06, 2017 14:33
[2017-09-06 16:00] VITALS: BP 106/57
[2017-09-06] MEDS ORDERED: Cefepime HCl 2 GM in NS 110 ML IV SCH (17:00)
[2017-09-06] MEDS ORDERED: D5 1/2NS 1000ml IV ONE (18:52)
[2017-09-06] MEDS ORDERED: Tubing IV Secondary IV ONE (18:52)
[2017-09-06 20:22] VITALS: BP 109/56
--- NOTE | 2017-09-06 20:24 | General Progress Note ---
Assessment/Plan Problem List: (1) DKA (diabetic ketoacidoses) ICD Codes: E13.10 - Other specified diabetes mellitus with ketoacidosis without coma SNOMED: 80632784, 941332868 (2) Altered level of consciousness ICD Codes: R40.4 - Transient alteration of awareness SNOMED: 5080341 (3) Hyperkalemia ICD Codes: E87.5 - Hyperkalemia SNOMED: 11250007 (4) Rhabdomyolysis ICD Codes: M62.82 - Rhabdomyolysis SNOMED: 916710424, 118205940 (5) Diabetes mellitus out of control ICD Codes: E11.65 - Type 2 diabetes mellitus with hyperglycemia SNOMED: 563011613, 10793973 (6) Sepsis ICD Codes: A41.9 - Sepsis, unspecified organism SNOMED: 24758055 (7) Hypothyroidism ICD Codes: E03.9 - Hypothyroidism, unspecified SNOMED: 80610293 Assessment/Plan continue Levemir 14 units bid continue Novolog sliding scale every 6 hours repeat TSH, free T4 in am Subjective ROS Limited/Unobtainable: Yes Allergies: Coded Allergies: No Known Allergies (Unverified , 08/18/17) Subjective events noted - interval notes reviewed Objective Last 24 Hour Vital Signs Date Time Temp Pulse Resp B/P (MAP) Pulse Ox O2 Delivery O2 Flow Rate FiO2 09/06/17 18:26 97.3 09/06/17 16:53 85 09/06/17 16:00 97.3 86 19 106/57 91 Nasal Cannula 1.0 09/06/17 12:39 94 09/06/17 12:03 97.4 94 20 132/71 92 Nasal Cannula 1.0 09/06/17 09:12 123/62 09/06/17 09:12 93 123/62 09/06/17 08:00 98.4 95 17 123/62 95 Nasal Cannula 1.0 09/06/17 08:00 93 09/06/17 04:00 97.2 97 16 140/66 100 Nasal Cannula 09/06/17 03:37 90 09/06/17 00:00 98.1 93 14 137/75 100 Nasal Cannula 0.5 09/06/17 00:00 93 Intake and Output 09/06/17 09/07/17 19:00 07:00 Intake Total 1115.000 ml Output Total 900 ml Balance 215.000 ml Free Water 150 ml IV Total 360.000 ml Tube Feeding 605 ml Output Urine Total 900 ml Laboratory Tests 09/06/17 04:26: White Blood Count 15.9H, Red Blood Count 2.36L, Hemoglobin 7.9L, Hematocrit 23.4L, Mean Corpuscular Volume 99, Mean Corpuscular Hemoglobin 33.6H, Mean Corpuscular Hemoglobin Concent 33.9, Red Cell Distribution Width 15.9H, Platelet Count 183, Mean Platelet Volume 8.6, Neutrophils (%) (Auto) , Lymphocytes (%) (Auto) , Monocytes (%) (Auto) , Eosinophils (%) (Auto) , Basophils (%) (Auto) , Differential Total Cells Counted 100, Neutrophils % ( Manual) 78H, Lymphocytes % (Manual) 11L, Monocytes % (Manual) 6, Eosinophils % ( Manual) 2, Basophils % (Manual) 0, Band Neutrophils 3, Platelet Estimate Adequate, Platelet Morphology Normal, Anisocytosis 1+, Macrocytosis 1+, [place] Cells 1+, Sodium Level 141, Potassium Level 4.1, Chloride Level 110H, Carbon Dioxide Level 18L, Anion Gap 13, Blood Urea Nitrogen 6L, Creatinine 0.8, Estimat Glomerular Filtration Rate > 60, Glucose Level 122H, Calcium Level 7.7L Height (Feet): 5 Height (Inches): 3.00 Weight (Pounds): 114 General Appearance: no apparent distress Neck: normal alignment Cardiovascular: normal rate Respiratory/Chest: decreased breath sounds Abdomen: normal bowel sounds Pelvis: normal external exam Edema: 1+ Arm (L), 1+ Arm (R), 1+ Leg (L), 1+ Leg (R), 1+ Pedal (L), 1+ Pedal ( R), 1+ Generalized Objective Current Medications Medications (Trade) Dose Ordered Sig/Adonay Route PRN Reason Start Time Stop Time Status Last Admin Dose Admin Acetaminophen (Tylenol) 650 mg Q6H PRN ORAL Mild Pain/Temp > 100.5 08/21/17 20:00 09/18/17 07:59 09/04/17 10:04 Amlodipine Besylate (Norvasc) 10 mg DAILY NG 08/23/17 09:00 09/22/17 08:59 09/06/17 09:12 Ascorbic Acid (Vitamin C) 500 mg DAILY NG 08/23/17 09:00 09/22/17 08:59 09/06/17 09:12 Baclofen (Lioresal) 10 mg THREE TIMES A DAY NG 08/23/17 09:00 09/22/17 08:59 09/06/17 17:46 Cefepime HCl 2 gm/ Sodium Chloride 110 ml @ 220 mls/hr Q24H IV 09/06/17 17:00 09/13/17 16:59 09/06/17 17:27 Citalopram Hydrobromide (celeXA) 20 mg DAILY GT 08/27/17 09:00 09/18/17 08:59 09/06/17 09:11 Clonidine HCl (Catapres) 0.1 mg Q6H PRN NG SBP > 160mmHg 08/23/17 08:30 09/22/17 08:29 Dextrose (Dextrose 50%) STAT PRN IV Hypoglycemia 08/21/17 20:00 09/20/17 19:59 09/05/17 18:34 Ferrous Sulfate (Feosol) 300 mg DAILY NG 08/27/17 09:00 09/26/17 08:59 09/06/17 09:11 Fluconazole (Diflucan) 200 mg DAILY ORAL 09/05/17 15:30 09/12/17 15:29 09/06/17 09:17 Insulin Aspart (NovoLOG) EVERY 6 HOURS SUBQ 09/04/17 06:00 09/19/17 08:59 09/06/17 17:48 Insulin Detemir (Levemir) 14 units EVERY 12 HOURS SUBQ 09/06/17 21:00 10/06/17 20:59 Lansoprazole (Prevacid) 30 mg DAILY NG 08/24/17 09:00 09/23/17 08:59 09/06/17 09:10 Levothyroxine Sodium (Synthroid) 75 mcg ACBREAKFAST NG 08/24/17 06:30 09/23/17 06:29 09/06/17 06:20 Losartan Potassium (Cozaar) 50 mg DAILY NG 08/23/17 09:00 09/22/17 08:59 09/06/17 09:12 Metronidazole (Flagyl) 500 mg EVERY 8 HOURS ORAL 09/05/17 22:00 09/12/17 21:59 09/06/17 13:44 Multivitamins (Multivitamins) 1 tab DAILY ORAL 08/22/17 09:00 09/18/17 08:59 09/06/17 09:12 Ondansetron HCl (Zofran) 4 mg Q6H PRN NG Nausea & Vomiting 08/26/17 15:30 09/18/17 07:59 Oxycodone/ Acetaminophen (Percocet 5-325) 1 tab EVERY 6 HOURS PRN ORAL Severe Pain (Pain Scale 7-10) 09/02/17 15:45 09/09/17 15:44 09/06/17 17:27 Potassium Chloride (KCl 10% 40mEq Oral solution) 40 meq TWICE A DAY NG 08/24/17 18:00 09/23/17 17:59 09/06/17 17:46 Quetiapine Fumarate (SEROquel) 12.5 mg Q12H PRN ORAL Agitation 08/30/17 11:45 09/29/17 11:44 09/06/17 09:11 Vancomycin HCl (Vanco rx to dose) 1 ea DAILY PRN MISC Per rx protocol 08/28/17 16:15 09/27/17 16:14 Vancomycin/Sodium Chloride 250 ml @ 166.667 mls/hr Q12HR@1000,2200 IVPB 09/05/17 10:00 09/10/17 09:59 09/06/17 10:37 Item Value Date Time Bedside Blood Glucose 166 mg/dl H 09/06/17 1748 Bedside Blood Glucose 233 mg/dl H 09/06/17 1214 Bedside Blood Glucose 166 mg/dl H 09/06/17 0900 Bedside Blood Glucose 142 mg/dl H 09/06/17 0600 Bedside Blood Glucose 186 mg/dl H 09/06/17 0000 KAYLEE DARNELL Sep 06, 2017 20:24
--- NOTE | 2017-09-06 20:24 | General Progress Note ---
Assessment/Plan Problem List: (1) DKA (diabetic ketoacidoses) ICD Codes: E13.10 - Other specified diabetes mellitus with ketoacidosis without coma SNOMED: 08558493, 257486068 (2) Altered level of consciousness ICD Codes: R40.4 - Transient alteration of awareness SNOMED: 4012221 (3) Hyperkalemia ICD Codes: E87.5 - Hyperkalemia SNOMED: 36452241 (4) Rhabdomyolysis ICD Codes: M62.82 - Rhabdomyolysis SNOMED: 397641837, 143962790 (5) Diabetes mellitus out of control ICD Codes: E11.65 - Type 2 diabetes mellitus with hyperglycemia SNOMED: 687484761, 06357134 (6) Sepsis ICD Codes: A41.9 - Sepsis, unspecified organism SNOMED: 34865919 (7) Hypothyroidism ICD Codes: E03.9 - Hypothyroidism, unspecified SNOMED: 64500168 Assessment/Plan continue Levemir 14 units bid continue Novolog sliding scale every 6 hours repeat TSH, free T4 in am Subjective ROS Limited/Unobtainable: Yes Allergies: Coded Allergies: No Known Allergies (Unverified , 08/18/17) Subjective events noted - interval notes reviewed Objective Last 24 Hour Vital Signs Date Time Temp Pulse Resp B/P (MAP) Pulse Ox O2 Delivery O2 Flow Rate FiO2 09/06/17 18:26 97.3 09/06/17 16:53 85 09/06/17 16:00 97.3 86 19 106/57 91 Nasal Cannula 1.0 09/06/17 12:39 94 09/06/17 12:03 97.4 94 20 132/71 92 Nasal Cannula 1.0 09/06/17 09:12 123/62 09/06/17 09:12 93 123/62 09/06/17 08:00 98.4 95 17 123/62 95 Nasal Cannula 1.0 09/06/17 08:00 93 09/06/17 04:00 97.2 97 16 140/66 100 Nasal Cannula 09/06/17 03:37 90 09/06/17 00:00 98.1 93 14 137/75 100 Nasal Cannula 0.5 09/06/17 00:00 93 Intake and Output 09/06/17 09/07/17 19:00 07:00 Intake Total 1115.000 ml Output Total 900 ml Balance 215.000 ml Free Water 150 ml IV Total 360.000 ml Tube Feeding 605 ml Output Urine Total 900 ml Laboratory Tests 09/06/17 04:26: White Blood Count 15.9H, Red Blood Count 2.36L, Hemoglobin 7.9L, Hematocrit 23.4L, Mean Corpuscular Volume 99, Mean Corpuscular Hemoglobin 33.6H, Mean Corpuscular Hemoglobin Concent 33.9, Red Cell Distribution Width 15.9H, Platelet Count 183, Mean Platelet Volume 8.6, Neutrophils (%) (Auto) , Lymphocytes (%) (Auto) , Monocytes (%) (Auto) , Eosinophils (%) (Auto) , Basophils (%) (Auto) , Differential Total Cells Counted 100, Neutrophils % ( Manual) 78H, Lymphocytes % (Manual) 11L, Monocytes % (Manual) 6, Eosinophils % ( Manual) 2, Basophils % (Manual) 0, Band Neutrophils 3, Platelet Estimate Adequate, Platelet Morphology Normal, Anisocytosis 1+, Macrocytosis 1+, [place] Cells 1+, Sodium Level 141, Potassium Level 4.1, Chloride Level 110H, Carbon Dioxide Level 18L, Anion Gap 13, Blood Urea Nitrogen 6L, Creatinine 0.8, Estimat Glomerular Filtration Rate > 60, Glucose Level 122H, Calcium Level 7.7L Height (Feet): 5 Height (Inches): 3.00 Weight (Pounds): 114 General Appearance: no apparent distress Neck: normal alignment Cardiovascular: normal rate Respiratory/Chest: decreased breath sounds Abdomen: normal bowel sounds Pelvis: normal external exam Edema: 1+ Arm (L), 1+ Arm (R), 1+ Leg (L), 1+ Leg (R), 1+ Pedal (L), 1+ Pedal ( R), 1+ Generalized Objective Current Medications Medications (Trade) Dose Ordered Sig/Adonay Route PRN Reason Start Time Stop Time Status Last Admin Dose Admin Acetaminophen (Tylenol) 650 mg Q6H PRN ORAL Mild Pain/Temp > 100.5 08/21/17 20:00 09/18/17 07:59 09/04/17 10:04 Amlodipine Besylate (Norvasc) 10 mg DAILY NG 08/23/17 09:00 09/22/17 08:59 09/06/17 09:12 Ascorbic Acid (Vitamin C) 500 mg DAILY NG 08/23/17 09:00 09/22/17 08:59 09/06/17 09:12 Baclofen (Lioresal) 10 mg THREE TIMES A DAY NG 08/23/17 09:00 09/22/17 08:59 09/06/17 17:46 Cefepime HCl 2 gm/ Sodium Chloride 110 ml @ 220 mls/hr Q24H IV 09/06/17 17:00 09/13/17 16:59 09/06/17 17:27 Citalopram Hydrobromide (celeXA) 20 mg DAILY GT 08/27/17 09:00 09/18/17 08:59 09/06/17 09:11 Clonidine HCl (Catapres) 0.1 mg Q6H PRN NG SBP > 160mmHg 08/23/17 08:30 09/22/17 08:29 Dextrose (Dextrose 50%) STAT PRN IV Hypoglycemia 08/21/17 20:00 09/20/17 19:59 09/05/17 18:34 Ferrous Sulfate (Feosol) 300 mg DAILY NG 08/27/17 09:00 09/26/17 08:59 09/06/17 09:11 Fluconazole (Diflucan) 200 mg DAILY ORAL 09/05/17 15:30 09/12/17 15:29 09/06/17 09:17 Insulin Aspart (NovoLOG) EVERY 6 HOURS SUBQ 09/04/17 06:00 09/19/17 08:59 09/06/17 17:48 Insulin Detemir (Levemir) 14 units EVERY 12 HOURS SUBQ 09/06/17 21:00 10/06/17 20:59 Lansoprazole (Prevacid) 30 mg DAILY NG 08/24/17 09:00 09/23/17 08:59 09/06/17 09:10 Levothyroxine Sodium (Synthroid) 75 mcg ACBREAKFAST NG 08/24/17 06:30 09/23/17 06:29 09/06/17 06:20 Losartan Potassium (Cozaar) 50 mg DAILY NG 08/23/17 09:00 09/22/17 08:59 09/06/17 09:12 Metronidazole (Flagyl) 500 mg EVERY 8 HOURS ORAL 09/05/17 22:00 09/12/17 21:59 09/06/17 13:44 Multivitamins (Multivitamins) 1 tab DAILY ORAL 08/22/17 09:00 09/18/17 08:59 09/06/17 09:12 Ondansetron HCl (Zofran) 4 mg Q6H PRN NG Nausea & Vomiting 08/26/17 15:30 09/18/17 07:59 Oxycodone/ Acetaminophen (Percocet 5-325) 1 tab EVERY 6 HOURS PRN ORAL Severe Pain (Pain Scale 7-10) 09/02/17 15:45 09/09/17 15:44 09/06/17 17:27 Potassium Chloride (KCl 10% 40mEq Oral solution) 40 meq TWICE A DAY NG 08/24/17 18:00 09/23/17 17:59 09/06/17 17:46 Quetiapine Fumarate (SEROquel) 12.5 mg Q12H PRN ORAL Agitation 08/30/17 11:45 09/29/17 11:44 09/06/17 09:11 Vancomycin HCl (Vanco rx to dose) 1 ea DAILY PRN MISC Per rx protocol 08/28/17 16:15 09/27/17 16:14 Vancomycin/Sodium Chloride 250 ml @ 166.667 mls/hr Q12HR@1000,2200 IVPB 09/05/17 10:00 09/10/17 09:59 09/06/17 10:37 Item Value Date Time Bedside Blood Glucose 166 mg/dl H 09/06/17 1748 Bedside Blood Glucose 233 mg/dl H 09/06/17 1214 Bedside Blood Glucose 166 mg/dl H 09/06/17 0900 Bedside Blood Glucose 142 mg/dl H 09/06/17 0600 Bedside Blood Glucose 186 mg/dl H 09/06/17 0000 KAYLEE DARNELL Sep 06, 2017 20:24
--- NOTE | 2017-09-06 20:24 | General Progress Note ---
Assessment/Plan Problem List: (1) DKA (diabetic ketoacidoses) ICD Codes: E13.10 - Other specified diabetes mellitus with ketoacidosis without coma SNOMED: 21687503, 572785755 (2) Altered level of consciousness ICD Codes: R40.4 - Transient alteration of awareness SNOMED: 5095744 (3) Hyperkalemia ICD Codes: E87.5 - Hyperkalemia SNOMED: 50121491 (4) Rhabdomyolysis ICD Codes: M62.82 - Rhabdomyolysis SNOMED: 124776129, 973505087 (5) Diabetes mellitus out of control ICD Codes: E11.65 - Type 2 diabetes mellitus with hyperglycemia SNOMED: 938048874, 84578127 (6) Sepsis ICD Codes: A41.9 - Sepsis, unspecified organism SNOMED: 53694922 (7) Hypothyroidism ICD Codes: E03.9 - Hypothyroidism, unspecified SNOMED: 07105405 Assessment/Plan continue Levemir 14 units bid continue Novolog sliding scale every 6 hours repeat TSH, free T4 in am Subjective ROS Limited/Unobtainable: Yes Allergies: Coded Allergies: No Known Allergies (Unverified , 08/18/17) Subjective events noted - interval notes reviewed Objective Last 24 Hour Vital Signs Date Time Temp Pulse Resp B/P (MAP) Pulse Ox O2 Delivery O2 Flow Rate FiO2 09/06/17 18:26 97.3 09/06/17 16:53 85 09/06/17 16:00 97.3 86 19 106/57 91 Nasal Cannula 1.0 09/06/17 12:39 94 09/06/17 12:03 97.4 94 20 132/71 92 Nasal Cannula 1.0 09/06/17 09:12 123/62 09/06/17 09:12 93 123/62 09/06/17 08:00 98.4 95 17 123/62 95 Nasal Cannula 1.0 09/06/17 08:00 93 09/06/17 04:00 97.2 97 16 140/66 100 Nasal Cannula 09/06/17 03:37 90 09/06/17 00:00 98.1 93 14 137/75 100 Nasal Cannula 0.5 09/06/17 00:00 93 Intake and Output 09/06/17 09/07/17 19:00 07:00 Intake Total 1115.000 ml Output Total 900 ml Balance 215.000 ml Free Water 150 ml IV Total 360.000 ml Tube Feeding 605 ml Output Urine Total 900 ml Laboratory Tests 09/06/17 04:26: White Blood Count 15.9H, Red Blood Count 2.36L, Hemoglobin 7.9L, Hematocrit 23.4L, Mean Corpuscular Volume 99, Mean Corpuscular Hemoglobin 33.6H, Mean Corpuscular Hemoglobin Concent 33.9, Red Cell Distribution Width 15.9H, Platelet Count 183, Mean Platelet Volume 8.6, Neutrophils (%) (Auto) , Lymphocytes (%) (Auto) , Monocytes (%) (Auto) , Eosinophils (%) (Auto) , Basophils (%) (Auto) , Differential Total Cells Counted 100, Neutrophils % ( Manual) 78H, Lymphocytes % (Manual) 11L, Monocytes % (Manual) 6, Eosinophils % ( Manual) 2, Basophils % (Manual) 0, Band Neutrophils 3, Platelet Estimate Adequate, Platelet Morphology Normal, Anisocytosis 1+, Macrocytosis 1+, [place] Cells 1+, Sodium Level 141, Potassium Level 4.1, Chloride Level 110H, Carbon Dioxide Level 18L, Anion Gap 13, Blood Urea Nitrogen 6L, Creatinine 0.8, Estimat Glomerular Filtration Rate > 60, Glucose Level 122H, Calcium Level 7.7L Height (Feet): 5 Height (Inches): 3.00 Weight (Pounds): 114 General Appearance: no apparent distress Neck: normal alignment Cardiovascular: normal rate Respiratory/Chest: decreased breath sounds Abdomen: normal bowel sounds Pelvis: normal external exam Edema: 1+ Arm (L), 1+ Arm (R), 1+ Leg (L), 1+ Leg (R), 1+ Pedal (L), 1+ Pedal ( R), 1+ Generalized Objective Current Medications Medications (Trade) Dose Ordered Sig/Adonay Route PRN Reason Start Time Stop Time Status Last Admin Dose Admin Acetaminophen (Tylenol) 650 mg Q6H PRN ORAL Mild Pain/Temp > 100.5 08/21/17 20:00 09/18/17 07:59 09/04/17 10:04 Amlodipine Besylate (Norvasc) 10 mg DAILY NG 08/23/17 09:00 09/22/17 08:59 09/06/17 09:12 Ascorbic Acid (Vitamin C) 500 mg DAILY NG 08/23/17 09:00 09/22/17 08:59 09/06/17 09:12 Baclofen (Lioresal) 10 mg THREE TIMES A DAY NG 08/23/17 09:00 09/22/17 08:59 09/06/17 17:46 Cefepime HCl 2 gm/ Sodium Chloride 110 ml @ 220 mls/hr Q24H IV 09/06/17 17:00 09/13/17 16:59 09/06/17 17:27 Citalopram Hydrobromide (celeXA) 20 mg DAILY GT 08/27/17 09:00 09/18/17 08:59 09/06/17 09:11 Clonidine HCl (Catapres) 0.1 mg Q6H PRN NG SBP > 160mmHg 08/23/17 08:30 09/22/17 08:29 Dextrose (Dextrose 50%) STAT PRN IV Hypoglycemia 08/21/17 20:00 09/20/17 19:59 09/05/17 18:34 Ferrous Sulfate (Feosol) 300 mg DAILY NG 08/27/17 09:00 09/26/17 08:59 09/06/17 09:11 Fluconazole (Diflucan) 200 mg DAILY ORAL 09/05/17 15:30 09/12/17 15:29 09/06/17 09:17 Insulin Aspart (NovoLOG) EVERY 6 HOURS SUBQ 09/04/17 06:00 09/19/17 08:59 09/06/17 17:48 Insulin Detemir (Levemir) 14 units EVERY 12 HOURS SUBQ 09/06/17 21:00 10/06/17 20:59 Lansoprazole (Prevacid) 30 mg DAILY NG 08/24/17 09:00 09/23/17 08:59 09/06/17 09:10 Levothyroxine Sodium (Synthroid) 75 mcg ACBREAKFAST NG 08/24/17 06:30 09/23/17 06:29 09/06/17 06:20 Losartan Potassium (Cozaar) 50 mg DAILY NG 08/23/17 09:00 09/22/17 08:59 09/06/17 09:12 Metronidazole (Flagyl) 500 mg EVERY 8 HOURS ORAL 09/05/17 22:00 09/12/17 21:59 09/06/17 13:44 Multivitamins (Multivitamins) 1 tab DAILY ORAL 08/22/17 09:00 09/18/17 08:59 09/06/17 09:12 Ondansetron HCl (Zofran) 4 mg Q6H PRN NG Nausea & Vomiting 08/26/17 15:30 09/18/17 07:59 Oxycodone/ Acetaminophen (Percocet 5-325) 1 tab EVERY 6 HOURS PRN ORAL Severe Pain (Pain Scale 7-10) 09/02/17 15:45 09/09/17 15:44 09/06/17 17:27 Potassium Chloride (KCl 10% 40mEq Oral solution) 40 meq TWICE A DAY NG 08/24/17 18:00 09/23/17 17:59 09/06/17 17:46 Quetiapine Fumarate (SEROquel) 12.5 mg Q12H PRN ORAL Agitation 08/30/17 11:45 09/29/17 11:44 09/06/17 09:11 Vancomycin HCl (Vanco rx to dose) 1 ea DAILY PRN MISC Per rx protocol 08/28/17 16:15 09/27/17 16:14 Vancomycin/Sodium Chloride 250 ml @ 166.667 mls/hr Q12HR@1000,2200 IVPB 09/05/17 10:00 09/10/17 09:59 09/06/17 10:37 Item Value Date Time Bedside Blood Glucose 166 mg/dl H 09/06/17 1748 Bedside Blood Glucose 233 mg/dl H 09/06/17 1214 Bedside Blood Glucose 166 mg/dl H 09/06/17 0900 Bedside Blood Glucose 142 mg/dl H 09/06/17 0600 Bedside Blood Glucose 186 mg/dl H 09/06/17 0000 KAYLEE DARNELL Sep 06, 2017 20:24
--- NOTE | 2017-09-06 20:34 | Infectious Diseases Prog Note ---
Assessment/Plan Assessment/Plan ASSESSMENT AND PLAN: 1. sepsis, klebsiella uti, possible pna, leukocytosis and fevers, c.diff. negative, ? fungemia - clinically less sob and more alert - leukocytosis slt better, fevers better - vancomycin, cefepime, flagyl, diflucan - check sc if possible, labs, chest x-ray -s/p g-tube - bc negative, chest x-ray without change 2. The patient has history of diabetes. 3. Hypertension. 4. Anemia, hypernatremia 5. Respiratory insufficiency. 6. Blood sugar and blood pressure control per primary. 7. Diabetic ketoacidosis. 8. History of anxiety. 9. Depression. 10. Dementia. 11. Chronic pain syndrome. 12. Aspiration risk. 13. Altered mental status. 14. Poor historian. 15. No known allergies. 16. Social history is negative. 17. Family history is noncontributory. 18. MAR was noted. 19. Case was discussed with RN. 20. Notes and records were noted. 21. Skin care protocol. 22. I have reviewed the wounds. I do not think this is her source of sepsis. Continue local wound care protocol. wc - likely colonizer. 23. Continue treatment per Dr. Winn. Subjective Constitutional: Reports: fatigue, Denies: fever HEENT: Reports: congestion - less Respiratory: Reports: shortness of breath - less Cardiovascular: Denies: chest pain Gastrointestinal/Abdominal: Denies: nausea, vomiting, diarrhea Genitourinary: Reports: other - + rowe Neurologic: Denies: headache Psychiatric: Reports: no symptoms Skin: Denies: rash Hematologic: Denies: bleeding Musculoskeletal: Denies: pain Allergies: Coded Allergies: No Known Allergies (Unverified , 08/18/17) Objective Vital Signs Last 24 Hour Vital Signs Date Time Temp Pulse Resp B/P (MAP) Pulse Ox O2 Delivery O2 Flow Rate FiO2 09/06/17 20:22 98.1 87 16 109/56 94 Nasal Cannula 2.0 09/06/17 18:26 97.3 09/06/17 16:53 85 09/06/17 16:00 97.3 86 19 106/57 91 Nasal Cannula 1.0 09/06/17 12:39 94 09/06/17 12:03 97.4 94 20 132/71 92 Nasal Cannula 1.0 09/06/17 09:12 123/62 09/06/17 09:12 93 123/62 09/06/17 08:00 98.4 95 17 123/62 95 Nasal Cannula 1.0 09/06/17 08:00 93 09/06/17 04:00 97.2 97 16 140/66 100 Nasal Cannula 09/06/17 03:37 90 09/06/17 00:00 98.1 93 14 137/75 100 Nasal Cannula 0.5 09/06/17 00:00 93 Height (Feet): 5 Height (Inches): 3.00 Weight (Pounds): 114 General Appearance: no acute distress HEENT: normocephalic, atraumatic, anicteric, mucous membranes moist, supple, no JVD Respiratory/Chest: crackles/rales, rhonchi - bilaterally Cardiovascular: normal rate, regular rhythm, no gallop/murmur, no JVD Abdomen: normal bowel sounds, soft, non tender, no organomegaly, non distended Genitourinary: other - + rowe - urine slt cloudy Extremities: no cyanosis Skin: no rash 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 The pleural spaces are clear. The heart size is normal. There is a nasogastric tube again demonstrated. Left shoulder hardware is again demonstrated 09/01 - chest x-ray: Impression: Unchanged, over one day, findings as above. Findings: Interstitial opacities again appear prominent bilaterally. Heart size is stable. NG tube is noted and in good position. Impression: No radiographic change. Interstitial opacities nonspecific 09/04 - chest x-ray: Comparison: 09/01/2017 Findings: Bilateral diffuse interstitial and alveolar disease is unchanged. The heart size is normal. Pleural spaces are clear Impression: Unchanged, over 3 days, findings as above. Microbiology Date/Time Source Procedure Growth Status 09/02/17 18:00 Blood Blood Culture - Preliminary NO GROWTH AFTER 72 HOURS Resulted 08/18/17 21:45 Nasal Nares MRSA Culture - Final NO METHICILLIN RESISTANT STAPH AUREUS... Complete 08/30/17 18:30 Stool Clostridium difficile Toxin Assay - Final Complete 09/03/17 05:40 Indwelling Cath Urine Culture - Preliminary YEAST Resulted 08/19/17 07:00 Buttock Left Gram Stain - Final Complete 08/19/17 07:00 Wound Culture - Final Staphylococcus Sp Coag Neg Diphtheroids Complete Laboratory Tests Test 09/06/17 04:26 White Blood Count 15.9 K/UL (4.8-10.8) H Red Blood Count 2.36 M/UL (4.20-5.40) L Hemoglobin 7.9 G/DL (12.0-16.0) L Hematocrit 23.4 % (37.0-47.0) L Mean Corpuscular Volume 99 FL (80-99) Mean Corpuscular Hemoglobin 33.6 PG (27.0-31.0) H Mean Corpuscular Hemoglobin Concent 33.9 G/DL (32.0-36.0) Red Cell Distribution Width 15.9 % (11.6-14.8) H Platelet Count 183 K/UL (150-450) Mean Platelet Volume 8.6 FL (6.5-10.1) Neutrophils (%) (Auto) % (45.0-75.0) Lymphocytes (%) (Auto) % (20.0-45.0) Monocytes (%) (Auto) % (1.0-10.0) Eosinophils (%) (Auto) % (0.0-3.0) Basophils (%) (Auto) % (0.0-2.0) Differential Total Cells Counted 100 Neutrophils % (Manual) 78 % (45-75) H Lymphocytes % (Manual) 11 % (20-45) L Monocytes % (Manual) 6 % (1-10) Eosinophils % (Manual) 2 % (0-3) Basophils % (Manual) 0 % (0-2) Band Neutrophils 3 % (0-8) Platelet Estimate Adequate Platelet Morphology Normal Anisocytosis 1+ Macrocytosis 1+ [place] Cells 1+ Sodium Level 141 MMOL/L (136-145) Potassium Level 4.1 MMOL/L (3.5-5.1) Chloride Level 110 MMOL/L (98-107) H Carbon Dioxide Level 18 MMOL/L (21-32) L Anion Gap 13 mmol/L (5-15) Blood Urea Nitrogen 6 mg/dL (7-18) L Creatinine 0.8 MG/DL (0.55-1.30) Estimat Glomerular Filtration Rate > 60 mL/min (>60) Glucose Level 122 MG/DL (74-106) H Calcium Level 7.7 MG/DL (8.5-10.1) L Current Medications Medications (Trade) Dose Ordered Sig/Adonay Route PRN Reason Start Time Stop Time Status Last Admin Dose Admin Acetaminophen (Tylenol) 650 mg Q6H PRN ORAL Mild Pain/Temp > 100.5 08/21/17 20:00 09/18/17 07:59 09/04/17 10:04 Amlodipine Besylate (Norvasc) 10 mg DAILY NG 08/23/17 09:00 09/22/17 08:59 09/06/17 09:12 Ascorbic Acid (Vitamin C) 500 mg DAILY NG 08/23/17 09:00 09/22/17 08:59 09/06/17 09:12 Baclofen (Lioresal) 10 mg THREE TIMES A DAY NG 08/23/17 09:00 09/22/17 08:59 09/06/17 17:46 Cefepime HCl 2 gm/ Sodium Chloride 110 ml @ 220 mls/hr Q24H IV 09/06/17 17:00 09/13/17 16:59 09/06/17 17:27 Citalopram Hydrobromide (celeXA) 20 mg DAILY GT 08/27/17 09:00 09/18/17 08:59 09/06/17 09:11 Clonidine HCl (Catapres) 0.1 mg Q6H PRN NG SBP > 160mmHg 08/23/17 08:30 09/22/17 08:29 Dextrose (Dextrose 50%) STAT PRN IV Hypoglycemia 08/21/17 20:00 09/20/17 19:59 09/05/17 18:34 Ferrous Sulfate (Feosol) 300 mg DAILY NG 08/27/17 09:00 09/26/17 08:59 09/06/17 09:11 Fluconazole (Diflucan) 200 mg DAILY ORAL 09/05/17 15:30 09/12/17 15:29 09/06/17 09:17 Insulin Aspart (NovoLOG) EVERY 6 HOURS SUBQ 09/04/17 06:00 09/19/17 08:59 09/06/17 17:48 Insulin Detemir (Levemir) 14 units EVERY 12 HOURS SUBQ 09/06/17 21:00 10/06/17 20:59 Lansoprazole (Prevacid) 30 mg DAILY NG 08/24/17 09:00 09/23/17 08:59 09/06/17 09:10 Levothyroxine Sodium (Synthroid) 75 mcg ACBREAKFAST NG 08/24/17 06:30 09/23/17 06:29 09/06/17 06:20 Losartan Potassium (Cozaar) 50 mg DAILY NG 08/23/17 09:00 09/22/17 08:59 09/06/17 09:12 Metronidazole (Flagyl) 500 mg EVERY 8 HOURS ORAL 09/05/17 22:00 09/12/17 21:59 09/06/17 13:44 Multivitamins (Multivitamins) 1 tab DAILY ORAL 08/22/17 09:00 09/18/17 08:59 09/06/17 09:12 Ondansetron HCl (Zofran) 4 mg Q6H PRN NG Nausea & Vomiting 08/26/17 15:30 09/18/17 07:59 Oxycodone/ Acetaminophen (Percocet 5-325) 1 tab EVERY 6 HOURS PRN ORAL Severe Pain (Pain Scale 7-10) 09/02/17 15:45 09/09/17 15:44 09/06/17 17:27 Potassium Chloride (KCl 10% 40mEq Oral solution) 40 meq TWICE A DAY NG 08/24/17 18:00 09/23/17 17:59 09/06/17 17:46 Quetiapine Fumarate (SEROquel) 12.5 mg Q12H PRN ORAL Agitation 08/30/17 11:45 09/29/17 11:44 09/06/17 09:11 Vancomycin HCl (Vanco rx to dose) 1 ea DAILY PRN MISC Per rx protocol 08/28/17 16:15 09/27/17 16:14 Vancomycin/Sodium Chloride 250 ml @ 166.667 mls/hr Q12HR@1000,2200 IVPB 09/05/17 10:00 09/10/17 09:59 09/06/17 10:37 YASIR RUEDA Sep 06, 2017 20:34
--- NOTE | 2017-09-06 23:06 | General Progress Note ---
Assessment/Plan Assessment/Plan agitated at times much improved Subjective Date patient seen: Sep 06, 2017 Allergies: Coded Allergies: No Known Allergies (Unverified , 08/18/17) Subjective calmer today and less agitated/ Objective Last 24 Hour Vital Signs Date Time Temp Pulse Resp B/P (MAP) Pulse Ox O2 Delivery O2 Flow Rate FiO2 09/06/17 20:22 98.1 87 16 109/56 94 Nasal Cannula 2.0 09/06/17 19:24 86 09/06/17 18:26 97.3 09/06/17 16:53 85 09/06/17 16:00 97.3 86 19 106/57 91 Nasal Cannula 1.0 09/06/17 12:39 94 09/06/17 12:03 97.4 94 20 132/71 92 Nasal Cannula 1.0 09/06/17 09:12 123/62 09/06/17 09:12 93 123/62 09/06/17 08:00 98.4 95 17 123/62 95 Nasal Cannula 1.0 09/06/17 08:00 93 09/06/17 04:00 97.2 97 16 140/66 100 Nasal Cannula 09/06/17 03:37 90 09/06/17 00:00 98.1 93 14 137/75 100 Nasal Cannula 0.5 09/06/17 00:00 93 Intake and Output 09/06/17 09/07/17 19:00 07:00 Intake Total 1115.000 ml Output Total 900 ml Balance 215.000 ml Free Water 150 ml IV Total 360.000 ml Tube Feeding 605 ml Output Urine Total 900 ml Laboratory Tests 09/06/17 04:26: White Blood Count 15.9H, Red Blood Count 2.36L, Hemoglobin 7.9L, Hematocrit 23.4L, Mean Corpuscular Volume 99, Mean Corpuscular Hemoglobin 33.6H, Mean Corpuscular Hemoglobin Concent 33.9, Red Cell Distribution Width 15.9H, Platelet Count 183, Mean Platelet Volume 8.6, Neutrophils (%) (Auto) , Lymphocytes (%) (Auto) , Monocytes (%) (Auto) , Eosinophils (%) (Auto) , Basophils (%) (Auto) , Differential Total Cells Counted 100, Neutrophils % ( Manual) 78H, Lymphocytes % (Manual) 11L, Monocytes % (Manual) 6, Eosinophils % ( Manual) 2, Basophils % (Manual) 0, Band Neutrophils 3, Platelet Estimate Adequate, Platelet Morphology Normal, Anisocytosis 1+, Macrocytosis 1+, [place] Cells 1+, Sodium Level 141, Potassium Level 4.1, Chloride Level 110H, Carbon Dioxide Level 18L, Anion Gap 13, Blood Urea Nitrogen 6L, Creatinine 0.8, Estimat Glomerular Filtration Rate > 60, Glucose Level 122H, Calcium Level 7.7L Height (Feet): 5 Height (Inches): 3.00 Weight (Pounds): 114 Audi Bonilla M.D. Sep 06, 2017 23:06
[2017-09-07] VITALS: BP 113/64
[2017-09-07] MEDS: Levemir Flexpen SUBQ SCH ×3 (00:10→22:17)
[2017-09-07] MEDS: oxyCODONE HCL/Acetaminophen 5/325mg ORAL PRN ×3 (01:59→17:36)
[2017-09-07 04:00] VITALS: BP 104/44
[2017-09-07] MEDS: metroNIDAZOLE 500mg tab ORAL SCH (05:43)
[2017-09-07] MEDS: NovoLOG Insulin Flexpen SUBQ SCH ×4 (05:43→17:31)
[2017-09-07 06:11] LABS: HEMATOCRIT 21.9 % (37.0-47.0); HEMOGLOBIN 7.1 G/DL (12.0-16.0); MEAN CORPUSCULAR VOLUME 98 FL (80-99); PLATELET COUNT 254 K/UL (150-450); RED BLOOD COUNT 2.25 M/UL (4.20-5.40); RED CELL DISTRIBUTION WIDTH 15.9 % (11.6-14.8)
[2017-09-07 06:42] LABS: WHITE BLOOD COUNT 32.3 K/UL (4.8-10.8)
[2017-09-07 08:00] VITALS: BP 124/59
[2017-09-07] MEDS: KCl 10% 40mEq/30ml liquid NG SCH ×2 (09:28→17:35)
[2017-09-07] MEDS: Fluconazole 100mg tab ORAL SCH (09:29)
[2017-09-07] MEDS: Citalopram Hydrobromide 10mg Tab GT SCH (09:29)
[2017-09-07] MEDS: Losartan 50mg tab NG SCH (09:30)
[2017-09-07] MEDS: Ascorbic Acid 500mg tab NG SCH (09:30)
[2017-09-07] MEDS: Ferrous Sulfate 300 MG/5 ML UDC NG SCH (09:31)
[2017-09-07] MEDS: Vancomycin 750mg/NS 250ml 250 ML IVPB SCH ×2 (09:32→22:17)
[2017-09-07 09:58] LABS: HEMOGLOBIN 7.2 G/DL (12.0-16.0); MEAN CORPUSCULAR VOLUME 98 FL (80-99); PLATELET COUNT 220 K/UL (150-450); RED BLOOD COUNT 2.34 M/UL (4.20-5.40); RED CELL DISTRIBUTION WIDTH 16.2 % (11.6-14.8)
[2017-09-07 10:00] LABS: WHITE BLOOD COUNT 32.4 K/UL (4.8-10.8)
--- NOTE | 2017-09-07 10:29 | Wound Care Consultation ---
Wound Assessment Wound Assessment #1: Wound Number: 1 Wound Present on Admission: No New Wound: No Status Change of Wound: Yes Wound Location Body Site Modif: right, lower, lateral Wound Location Body Site: leg Wound Type: blister - open blister Kimberli Test: Does not Kimberli Pressure Ulcer Stage: Unstageable Wound Thickness: Partial Thickness Wound Length: 17.0 Wound Width: 3.5 Wound Depth: 0.1 Percent of Wound [place]/Red: 70 - pink Percent of Wound Black/Brown: 30 Wound Drainage Description: Serosanguineous Wound Drainage Amount: Scant Wound Drainage Odor: None/Absent Tissue Surrounding Wound: Erythemic Wound General Appearance: Reddened, Draining Wound Assessment #2: Wound Number: 2 Wound Present on Admission: Yes New Wound: No Status Change of Wound: No Wound Location Body Site Modif: mid Wound Location Body Site: sacral Wound Type: pressure ulcer Kimberli Test: Does not Kimberli Pressure Ulcer Stage: Unstageable Wound Thickness: Full Thickness Wound Length: 6.5 Wound Width: 10.5 Wound Depth: utd Percent of Wound [place]/Red: 10 Percent of Wound Bed Yellow/Wh: 60 Percent of Wound Black/Brown: 30 Wound Drainage Description: Serosanguineous Wound Drainage Amount: Moderate Wound Drainage Odor: None/Absent Tissue Surrounding Wound: Macerated Wound General Appearance: Draining, Unapproximated, Necrotic Wound Assessment #3: Wound Number: 3 Wound Present on Admission: Yes New Wound: No Status Change of Wound: No Wound Location Body Site Modif: left Wound Location Body Site: heel Wound Type: pressure ulcer Kimberli Test: Does not Kimberli Pressure Ulcer Stage: Deep Tissue Injury Wound Thickness: Full Thickness Wound Length: 5.0 Wound Width: 5.5 Wound Depth: utd Percent of Wound Purple/Maroon: 100 Wound Drainage Amount: None Wound Drainage Odor: None/Absent Tissue Surrounding Wound: Erythemic Wound General Appearance: Reddened - dark maroon Wound Assessment #4: Wound Number: 4 Wound Present on Admission: Yes New Wound: No Status Change of Wound: No Wound Location Body Site Modif: right Wound Location Body Site: trochanter Wound Type: pressure ulcer Kimberli Test: Does not Kimberli Pressure Ulcer Stage: Deep Tissue Injury Wound Thickness: Full Thickness Wound Length: 4.5 Wound Width: 2.5 Wound Depth: utd Percent of Wound Purple/Maroon: 100 - purple Wound Drainage Amount: None Wound Drainage Odor: None/Absent Tissue Surrounding Wound: Erythemic Wound General Appearance: Reddened - purple Wound Assessment #5: Wound Number: 5 Wound Present on Admission: Yes New Wound: No Status Change of Wound: No Wound Location Body Site Modif: right Wound Location Body Site: heel Wound Type: pressure ulcer Kimberli Test: Does not Kimberli Pressure Ulcer Stage: Deep Tissue Injury Wound Thickness: Full Thickness Wound Length: 5.5 Wound Width: 4.5 Wound Depth: utd Percent of Wound Purple/Maroon: 100 - dark Wound Drainage Amount: None Wound Drainage Odor: None/Absent Tissue Surrounding Wound: Erythemic Wound General Appearance: Reddened - dark maroon Wound Assessment #6: Wound Number: 6 Wound Present on Admission: Yes New Wound: No Status Change of Wound: No Wound Location Body Site Modif: left Wound Location Body Site: trochanter Wound Type: pressure ulcer Kimberli Test: Does not Kimberli Pressure Ulcer Stage: Deep Tissue Injury Wound Thickness: Full Thickness Wound Length: 3.0 Wound Width: 3.5 Wound Depth: utd Percent of Wound Purple/Maroon: 100 Wound Drainage Amount: None Wound Drainage Odor: None/Absent Tissue Surrounding Wound: Intact Wound General Appearance: Reddened - purple Wound Assessment #7: Wound Number: 7 Wound Present on Admission: Yes New Wound: No Status Change of Wound: No Wound Location Body Site Modif: left Wound Location Body Site: ischial tuberosity Wound Type: pressure ulcer Kimberli Test: Does not Kimberli Pressure Ulcer Stage: Deep Tissue Injury Wound Thickness: Full Thickness Wound Length: 2.0 Wound Width: 2.5 Wound Depth: utd Percent of Wound Purple/Maroon: 100 Wound Drainage Amount: None Wound Drainage Odor: None/Absent Tissue Surrounding Wound: Intact Wound General Appearance: Reddened - purple Wound Assessment #8: Wound Number: 8 Wound Present on Admission: Yes New Wound: No Status Change of Wound: No Wound Location Body Site Modif: right Wound Location Body Site: ischial tuberosity Wound Type: pressure ulcer Kimberli Test: Does not Kimberli Pressure Ulcer Stage: I Wound Thickness: Partial Thickness Wound Length: 3.5 Wound Width: 3.5 Wound Depth: utd Percent of Wound Purple/Maroon: 100 Wound Drainage Amount: None Wound Drainage Odor: None/Absent Tissue Surrounding Wound: Intact Wound General Appearance: Reddened Wound Comment #1 Sacrococcygeal Unstageable pressure ulcer. Not improving. Noted with yellow/ brown thick slough adhered to wound bed. #2 Left heel DTI pressure ulcer. Still intact but larger in size and darker in color #3 Right heel DTI pressure ulcer. Still intact but larger in size and darker in color #4 Right trochanter DTI pressure ulcer. still intact. Darker in color #5 Left trochanter DTI pressure ulcer. Still intact #6 Right ischial tuberosity stage I pressure ulcer. still intact. No deterioration noted #7 Left ischial tuberosity progressed from stage I to DTI pressure ulcer #8 Left lateral lower leg Denuded blister noted larger in size and 70% pink and 30% brown in color Consulted DR Abdoulaye Rice Due to Pt's poor prognosis. saw this Pt. Refer to 's progress note on 09/04/17. Cont all previous wound treatment and recommendation for offloading at this time. Assess and f/u accordingly for any changes ARTIS WILKES RN Sep 07, 2017 10:29
[2017-09-07] MEDS: D5 1/2NS 1,000 ML IV SCH ×2 (11:36→22:18)
[2017-09-07 12:00] VITALS: BP 100/52
[2017-09-07 12:45] LABS: % IRON SATURATION 10 % (15-50); IRON 9 ug/dL (50-175); TOTAL IRON BINDING CAPACITY 90 ug/dL (250-450)
--- NOTE | 2017-09-07 12:54 | Infectious Diseases Prog Note ---
Assessment/Plan Assessment/Plan ASSESSMENT AND PLAN: 1. sepsis, klebsiella uti, possible pna, worsening leukocytosis and hx fevers, ? c.diff., s/p g-tube, mini glabrata fungal uti, ? fungemia, ? intra-abdominal process, ? peritonitis, ? abscess, ? pna - ct scan abdomen and pelvis ordered, patient re-cultured - change abx to meropenem, iv/po vanco, flagyl, micafungin - check labs, check chest x-ray 2. The patient has history of diabetes. 3. Hypertension. 4. Anemia, hypernatremia 5. Respiratory insufficiency. 6. Blood sugar and blood pressure control per primary. 7. Diabetic ketoacidosis. 8. History of anxiety. 9. Depression. 10. Dementia. 11. Chronic pain syndrome. 12. Aspiration risk. 13. Altered mental status. 14. Poor historian. 15. No known allergies. 16. Social history is negative. 17. Family history is noncontributory. 18. MAR was noted. 19. Case was discussed with RN. 20. Notes and records were noted. 21. Skin care protocol. 22. I have reviewed the wounds. I do not think this is her source of sepsis. Continue local wound care protocol. wc - likely colonizer. 23. Continue treatment per Dr. Winn. Subjective Constitutional: Denies: fever HEENT: Reports: congestion - mild Respiratory: Reports: shortness of breath - mild Cardiovascular: Denies: chest pain Gastrointestinal/Abdominal: Denies: nausea, vomiting, diarrhea Genitourinary: Reports: other - + rowe - urine slt cloudy Neurologic: Reports: headache Psychiatric: Reports: depression Skin: Denies: rash Hematologic: Reports: bleeding Musculoskeletal: Reports: pain Allergies: Coded Allergies: No Known Allergies (Unverified , 08/18/17) Objective Vital Signs Last 24 Hour Vital Signs Date Time Temp Pulse Resp B/P (MAP) Pulse Ox O2 Delivery O2 Flow Rate FiO2 09/07/17 12:31 76 09/07/17 12:00 97.5 76 18 100/52 98 Nasal Cannula 2.0 09/07/17 10:39 97.8 09/07/17 09:30 124/59 09/07/17 09:30 124 124/59 09/07/17 08:00 84 09/07/17 08:00 97.8 124 18 124/59 94 Nasal Cannula 2.0 09/07/17 04:00 97.3 83 16 104/44 96 Nasal Cannula 2.0 09/07/17 04:00 84 09/07/17 00:00 98.0 83 16 113/64 96 Nasal Cannula 1.0 09/06/17 23:48 89 09/06/17 20:22 98.1 87 16 109/56 94 Nasal Cannula 2.0 09/06/17 19:24 86 09/06/17 16:53 85 09/06/17 16:00 97.3 86 19 106/57 91 Nasal Cannula 1.0 Height (Feet): 5 Height (Inches): 3.00 Weight (Pounds): 119 General Appearance: no acute distress HEENT: normocephalic, atraumatic, anicteric, mucous membranes moist, EOMI, pharynx normal, supple, no JVD Respiratory/Chest: crackles/rales, rhonchi - bilaterally Cardiovascular: normal rate, regular rhythm, no gallop/murmur Abdomen: normal bowel sounds, distended, other - + pain, g-tube site without obvious cellulitis Genitourinary: other - + rowe - urine slt cloudy Extremities: no cyanosis Skin: no rash 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 The pleural spaces are clear. The heart size is normal. There is a nasogastric tube again demonstrated. Left shoulder hardware is again demonstrated 09/01 - chest x-ray: Impression: Unchanged, over one day, findings as above. Findings: Interstitial opacities again appear prominent bilaterally. Heart size is stable. NG tube is noted and in good position. Impression: No radiographic change. Interstitial opacities nonspecific 09/04 - chest x-ray: Comparison: 09/01/2017 Findings: Bilateral diffuse interstitial and alveolar disease is unchanged. The heart size is normal. Pleural spaces are clear Impression: Unchanged, over 3 days, findings as above. Microbiology Date/Time Source Procedure Growth Status 09/02/17 18:00 Blood Blood Culture - Preliminary NO GROWTH AFTER 4 DAYS Resulted 08/18/17 21:45 Nasal Nares MRSA Culture - Final NO METHICILLIN RESISTANT STAPH AUREUS... Complete 08/30/17 18:30 Stool Clostridium difficile Toxin Assay - Final Complete 09/03/17 05:40 Indwelling Cath Urine Culture - Final Mini Glabrata Complete 08/19/17 07:00 Buttock Left Gram Stain - Final Complete 08/19/17 07:00 Wound Culture - Final Staphylococcus Sp Coag Neg Diphtheroids Complete Laboratory Tests Test 09/07/17 04:30 09/07/17 08:45 White Blood Count 32.3 K/UL (4.8-10.8) #*H 32.4 K/UL (4.8-10.8) *H Red Blood Count 2.25 M/UL (4.20-5.40) L 2.34 M/UL (4.20-5.40) L Hemoglobin 7.1 G/DL (12.0-16.0) L 7.2 G/DL (12.0-16.0) L Hematocrit 21.9 % (37.0-47.0) L 23.0 % (37.0-47.0) L Mean Corpuscular Volume 98 FL (80-99) 98 FL (80-99) Mean Corpuscular Hemoglobin 31.8 PG (27.0-31.0) H 30.8 PG (27.0-31.0) Mean Corpuscular Hemoglobin Concent 32.6 G/DL (32.0-36.0) 31.4 G/DL (32.0-36.0) L Red Cell Distribution Width 15.9 % (11.6-14.8) H 16.2 % (11.6-14.8) H Platelet Count 254 K/UL (150-450) 220 K/UL (150-450) Mean Platelet Volume 8.8 FL (6.5-10.1) 7.6 FL (6.5-10.1) Neutrophils (%) (Auto) % (45.0-75.0) % (45.0-75.0) Lymphocytes (%) (Auto) % (20.0-45.0) % (20.0-45.0) Monocytes (%) (Auto) % (1.0-10.0) % (1.0-10.0) Eosinophils (%) (Auto) % (0.0-3.0) % (0.0-3.0) Basophils (%) (Auto) % (0.0-2.0) % (0.0-2.0) Differential Total Cells Counted 100 100 Neutrophils % (Manual) 93 % (45-75) H 86 % (45-75) H Lymphocytes % (Manual) 3 % (20-45) L 6 % (20-45) L Monocytes % (Manual) 2 % (1-10) 7 % (1-10) Eosinophils % (Manual) 1 % (0-3) 0 % (0-3) Basophils % (Manual) 0 % (0-2) 0 % (0-2) Band Neutrophils 1 % (0-8) 1 % (0-8) Platelet Estimate Adequate Adequate Platelet Morphology Normal Normal Hypochromasia 1+ 1+ Anisocytosis 1+ 1+ Thyroid Stimulating Hormone (TSH) 22.183 uiU/mL (0.360-3.740) Iron Level Pending Unsaturated Iron Binding Pending Ferritin Pending Current Medications Medications (Trade) Dose Ordered Sig/Adonay Route PRN Reason Start Time Stop Time Status Last Admin Dose Admin Acetaminophen (Tylenol) 650 mg Q6H PRN ORAL Mild Pain/Temp > 100.5 08/21/17 20:00 09/18/17 07:59 09/04/17 10:04 Amlodipine Besylate (Norvasc) 10 mg DAILY NG 08/23/17 09:00 09/22/17 08:59 09/07/17 09:30 Ascorbic Acid (Vitamin C) 500 mg DAILY NG 08/23/17 09:00 09/22/17 08:59 09/07/17 09:30 Baclofen (Lioresal) 10 mg THREE TIMES A DAY NG 08/23/17 09:00 09/22/17 08:59 09/07/17 09:30 Cefepime HCl 2 gm/ Sodium Chloride 110 ml @ 220 mls/hr Q24H IV 09/06/17 17:00 09/13/17 16:59 09/06/17 17:27 Citalopram Hydrobromide (celeXA) 20 mg DAILY GT 08/27/17 09:00 09/18/17 08:59 09/07/17 09:29 Clonidine HCl (Catapres) 0.1 mg Q6H PRN NG SBP > 160mmHg 08/23/17 08:30 09/22/17 08:29 Dextrose (Dextrose 50%) STAT PRN IV Hypoglycemia 08/21/17 20:00 09/20/17 19:59 09/05/17 18:34 Dextrose/Sodium Chloride 1,000 ml @ 100 mls/hr Q10H IV 09/07/17 11:00 10/07/17 10:59 09/07/17 11:36 Ferrous Sulfate (Feosol) 300 mg DAILY NG 08/27/17 09:00 09/26/17 08:59 09/07/17 09:31 Fluconazole (Diflucan) 200 mg DAILY ORAL 09/05/17 15:30 09/12/17 15:29 09/07/17 09:29 Insulin Aspart (NovoLOG) EVERY 6 HOURS SUBQ 09/04/17 06:00 09/19/17 08:59 09/06/17 17:48 Insulin Detemir (Levemir) 14 units EVERY 12 HOURS SUBQ 09/06/17 21:00 10/06/17 20:59 09/07/17 00:10 Iron Sucrose 100 mg/Sodium Chloride 60 ml @ 240 mls/hr BEDTIME IVPB 09/07/17 21:00 09/11/17 21:14 UNV Lansoprazole (Prevacid) 30 mg DAILY NG 08/24/17 09:00 09/23/17 08:59 09/07/17 09:30 Levothyroxine Sodium (Synthroid) 75 mcg ACBREAKFAST NG 08/24/17 06:30 09/23/17 06:29 09/07/17 05:43 Losartan Potassium (Cozaar) 50 mg DAILY NG 08/23/17 09:00 09/22/17 08:59 09/07/17 09:30 Metronidazole (Flagyl) 500 mg EVERY 8 HOURS ORAL 09/05/17 22:00 09/12/17 21:59 09/07/17 05:43 Multivitamins (Multivitamins) 1 tab DAILY ORAL 08/22/17 09:00 09/18/17 08:59 09/07/17 09:30 Ondansetron HCl (Zofran) 4 mg Q6H PRN NG Nausea & Vomiting 08/26/17 15:30 09/18/17 07:59 Oxycodone/ Acetaminophen (Percocet 5-325) 1 tab EVERY 6 HOURS PRN ORAL Severe Pain (Pain Scale 7-10) 09/02/17 15:45 09/09/17 15:44 09/07/17 09:40 Potassium Chloride (KCl 10% 40mEq Oral solution) 40 meq TWICE A DAY NG 08/24/17 18:00 09/23/17 17:59 09/07/17 09:28 Quetiapine Fumarate (SEROquel) 12.5 mg Q12H PRN ORAL Agitation 08/30/17 11:45 09/29/17 11:44 09/07/17 09:29 Vancomycin HCl (Vanco rx to dose) 1 ea DAILY PRN MISC Per rx protocol 08/28/17 16:15 09/27/17 16:14 Vancomycin/Sodium Chloride 250 ml @ 166.667 mls/hr Q12HR@1000,2200 IVPB 09/05/17 10:00 09/10/17 09:59 09/07/17 09:32 YASIR RUEDA Sep 07, 2017 12:54
[2017-09-07 12:58] LABS: FERRITIN 668 NG/ML (8-388)
[2017-09-07] MEDS: Vancomycin oral 125mg/2.5ml ORAL SCH ×3 (14:10→21:46)
--- NOTE | 2017-09-07 14:27 | Diagnostic Imaging Report ---
Indication: Abdominal pain Technique: Continuous helical transaxial imaging of the abdomen and pelvis was obtained from the lung bases to the pubic symphysis. No intravenous contrast was administered. Coronal 2-D reformats were also obtained. Total Dose length Product (DLP): [address] Dose Index Volume (CTDIvol): 0.15, 15.03 mGy Comparison: none Findings: Reticular densities are noted fairly extensively within the visualized part of the lung bases bilaterally. In addition there is a focus of consolidation or atelectasis with air bronchograms involving posterior left lower lobe. The heart is enlarged. Coronary calcifications and aorta calcifications are present. There is free air noted in the upper abdomen. The patient has a history of very recent gastrostomy placement 2 days earlier. Gastrostomy tube appears to be in good position. The balloon is noted just inside of the anterior wall the stomach. There is no contrast within the peritoneal cavity. There is subcutaneous edema with reticular densities noted throughout the abdomen and pelvis especially in the pelvis and proximal lower extremities. There is no evidence of bowel obstruction. The gallbladder is noted and grossly unremarkable. There is no hydronephrosis. Esposito catheter in good position. Impression: Small amount of free air in the anterior epigastric region likely related to recent gastrostomy placement. Gastrostomy in good position. Basilar reticular lung disease, nonspecific. Left basilar pneumonia versus atelectasis. Please correlate clinically. Atherosclerotic disease Esposito catheter in good position. Breathing motion artifact. Anasarca. Trace ascites The CT scanner at [facility] is accredited by the [employer] and the scans are performed using dose optimization techniques as appropriate to a performed exam including Automatic Exposure control.
[2017-09-07 16:00] VITALS: BP 120/58
[2017-09-07] MEDS ORDERED: Tubing IV Secondary IV ONE (16:18)
[2017-09-07] MEDS ORDERED: Sterile Water Irrig 1000ml IRRIG ONE (16:18)
--- NOTE | 2017-09-07 17:52 | General Progress Note ---
Assessment/Plan Assessment/Plan Assessment - Respiratory failure - leukocytosis - Anemia - tube feed intolerance - IDDM - s/p PEG Recommendations - Hold feeds - CT scan of abdomen - GT care - Elevate HOB - abx Subjective Allergies: Coded Allergies: No Known Allergies (Unverified , 08/18/17) Subjective above noted s/p PEG - POD #3 RN reports TF intolerance TF held Objective Last 24 Hour Vital Signs Date Time Temp Pulse Resp B/P (MAP) Pulse Ox O2 Delivery O2 Flow Rate FiO2 09/07/17 16:00 97.5 71 18 120/58 98 Nasal Cannula 2.0 09/07/17 12:31 76 09/07/17 12:00 97.5 76 18 100/52 98 Nasal Cannula 2.0 09/07/17 10:39 97.8 09/07/17 09:30 124/59 09/07/17 09:30 124 124/59 09/07/17 08:00 84 09/07/17 08:00 97.8 124 18 124/59 94 Nasal Cannula 2.0 09/07/17 04:00 97.3 83 16 104/44 96 Nasal Cannula 2.0 09/07/17 04:00 84 09/07/17 00:00 98.0 83 16 113/64 96 Nasal Cannula 1.0 09/06/17 23:48 89 09/06/17 20:22 98.1 87 16 109/56 94 Nasal Cannula 2.0 09/06/17 19:24 86 Intake and Output 09/07/17 09/08/17 19:00 07:00 Intake Total 855.000 ml Balance 855.000 ml IV Total 800.000 ml Tube Feeding 55 ml # Bowel Movements 5 Laboratory Tests 09/07/17 04:30: White Blood Count 32.3#*H, Red Blood Count 2.25L, Hemoglobin 7.1L, Hematocrit 21.9L, Mean Corpuscular Volume 98, Mean Corpuscular Hemoglobin 31.8H, Mean Corpuscular Hemoglobin Concent 32.6, Red Cell Distribution Width 15.9H, Platelet Count 254, Mean Platelet Volume 8.8, Neutrophils (%) (Auto) , Lymphocytes (%) (Auto) , Monocytes (%) (Auto) , Eosinophils (%) (Auto) , Basophils (%) (Auto) , Differential Total Cells Counted 100, Neutrophils % ( Manual) 93H, Lymphocytes % (Manual) 3L, Monocytes % (Manual) 2, Eosinophils % ( Manual) 1, Basophils % (Manual) 0, Band Neutrophils 1, Platelet Estimate Adequate, Platelet Morphology Normal, Hypochromasia 1+, Anisocytosis 1+, Thyroid Stimulating Hormone (TSH) 22.183H 09/07/17 08:45: White Blood Count 32.4*H, Red Blood Count 2.34L, Hemoglobin 7.2L, Hematocrit 23.0L, Mean Corpuscular Volume 98, Mean Corpuscular Hemoglobin 30.8, Mean Corpuscular Hemoglobin Concent 31.4L, Red Cell Distribution Width 16.2H, Platelet Count 220, Mean Platelet Volume 7.6, Neutrophils (%) (Auto) , Lymphocytes (%) (Auto) , Monocytes (%) (Auto) , Eosinophils (%) (Auto) , Basophils (%) (Auto) , Differential Total Cells Counted 100, Neutrophils % ( Manual) 86H, Lymphocytes % (Manual) 6L, Monocytes % (Manual) 7, Eosinophils % ( Manual) 0, Basophils % (Manual) 0, Band Neutrophils 1, Platelet Estimate Adequate, Platelet Morphology Normal, Hypochromasia 1+, Anisocytosis 1+, Iron Level 9L, Total Iron Binding Capacity 90L, Percent Iron Saturation 10L, Unsaturated Iron Binding 81L, Ferritin 668H Height (Feet): 5 Height (Inches): 3.00 Weight (Pounds): 119 Objective Thin AA woman NCAT Neck supple Chest: b/l coarse BS RRR soft mild distention and TTP, (+) GT no edema ERIKA ESPINOSA Sep 07, 2017 17:52
--- NOTE | 2017-09-07 19:56 | General Progress Note ---
Assessment/Plan Problem List: (1) Altered level of consciousness ICD Codes: R40.4 - Transient alteration of awareness SNOMED: 7324350 (2) Dysphagia ICD Codes: R13.10 - Dysphagia, unspecified SNOMED: 50083331, 581218165 (3) Rhabdomyolysis ICD Codes: M62.82 - Rhabdomyolysis SNOMED: 904252228, 363921300 (4) Diabetes mellitus out of control ICD Codes: E11.65 - Type 2 diabetes mellitus with hyperglycemia SNOMED: 395689671, 19941611 (5) Altered mental status, unspecified ICD Codes: R41.82 - Altered mental status, unspecified SNOMED: 409752009 (6) Hyperkalemia ICD Codes: E87.5 - Hyperkalemia SNOMED: 61363177 (7) DKA (diabetic ketoacidoses) ICD Codes: E13.10 - Other specified diabetes mellitus with ketoacidosis without coma SNOMED: 15648263, 921233184 (8) Sepsis ICD Codes: A41.9 - Sepsis, unspecified organism SNOMED: 21014764 (9) Hypothyroidism ICD Codes: E03.9 - Hypothyroidism, unspecified SNOMED: 92730611 (10) Hyperglycemia ICD Codes: R73.9 - Hyperglycemia, unspecified SNOMED: 48048479 (11) anemia (12) anemia (13) Leukocytosis ICD Codes: D72.829 - Elevated white blood cell count, unspecified SNOMED: 774340956, 234601807 (14) Decubitus ulcer of ankle, stage 4 ICD Codes: L89.504 - Pressure ulcer of unspecified ankle, stage 4 SNOMED: 154987496 (15) Sacral fracture ICD Codes: S32.10XA - Unspecified fracture of sacrum, initial encounter for closed fracture SNOMED: 896933799, 77440714 Assessment/Plan dc plan in process, financial issue d/w CM, increase levemir, recultured, antibiotic per ID leukocytosis from decubiti likely, surgical consult, transfuse for anemia and copd Subjective ROS Limited/Unobtainable: Yes Allergies: Coded Allergies: No Known Allergies (Unverified , 08/18/17) Objective Last 24 Hour Vital Signs Date Time Temp Pulse Resp B/P (MAP) Pulse Ox O2 Delivery O2 Flow Rate FiO2 09/07/17 18:35 97.5 09/07/17 16:00 72 09/07/17 16:00 97.5 71 18 120/58 98 Nasal Cannula 2.0 09/07/17 12:31 76 09/07/17 12:00 97.5 76 18 100/52 98 Nasal Cannula 2.0 09/07/17 09:30 124/59 09/07/17 09:30 124 124/59 09/07/17 08:00 84 09/07/17 08:00 97.8 124 18 124/59 94 Nasal Cannula 2.0 09/07/17 04:00 97.3 83 16 104/44 96 Nasal Cannula 2.0 09/07/17 04:00 84 09/07/17 00:00 98.0 83 16 113/64 96 Nasal Cannula 1.0 09/06/17 23:48 89 09/06/17 20:22 98.1 87 16 109/56 94 Nasal Cannula 2.0 Intake and Output 09/07/17 09/08/17 19:00 07:00 Intake Total 855.000 ml Output Total 350 ml Balance 505.000 ml IV Total 800.000 ml Tube Feeding 55 ml Output Urine Total 350 ml # Bowel Movements 5 Laboratory Tests 09/07/17 04:30: White Blood Count 32.3#*H, Red Blood Count 2.25L, Hemoglobin 7.1L, Hematocrit 21.9L, Mean Corpuscular Volume 98, Mean Corpuscular Hemoglobin 31.8H, Mean Corpuscular Hemoglobin Concent 32.6, Red Cell Distribution Width 15.9H, Platelet Count 254, Mean Platelet Volume 8.8, Neutrophils (%) (Auto) , Lymphocytes (%) (Auto) , Monocytes (%) (Auto) , Eosinophils (%) (Auto) , Basophils (%) (Auto) , Differential Total Cells Counted 100, Neutrophils % ( Manual) 93H, Lymphocytes % (Manual) 3L, Monocytes % (Manual) 2, Eosinophils % ( Manual) 1, Basophils % (Manual) 0, Band Neutrophils 1, Platelet Estimate Adequate, Platelet Morphology Normal, Hypochromasia 1+, Anisocytosis 1+, Thyroid Stimulating Hormone (TSH) 22.183H 09/07/17 08:45: White Blood Count 32.4*H, Red Blood Count 2.34L, Hemoglobin 7.2L, Hematocrit 23.0L, Mean Corpuscular Volume 98, Mean Corpuscular Hemoglobin 30.8, Mean Corpuscular Hemoglobin Concent 31.4L, Red Cell Distribution Width 16.2H, Platelet Count 220, Mean Platelet Volume 7.6, Neutrophils (%) (Auto) , Lymphocytes (%) (Auto) , Monocytes (%) (Auto) , Eosinophils (%) (Auto) , Basophils (%) (Auto) , Differential Total Cells Counted 100, Neutrophils % ( Manual) 86H, Lymphocytes % (Manual) 6L, Monocytes % (Manual) 7, Eosinophils % ( Manual) 0, Basophils % (Manual) 0, Band Neutrophils 1, Platelet Estimate Adequate, Platelet Morphology Normal, Hypochromasia 1+, Anisocytosis 1+, Iron Level 9L, Total Iron Binding Capacity 90L, Percent Iron Saturation 10L, Unsaturated Iron Binding 81L, Ferritin 668H Height (Feet): 5 Height (Inches): 3.00 Weight (Pounds): 119 General Appearance: lethargic, confused EENT: normal ENT inspection Neck: non-tender Cardiovascular: normal rate Respiratory/Chest: lungs clear, decreased breath sounds Abdomen: non tender Edema: no edema noted Arm (L), no edema noted Arm (R), no edema noted Leg (L), no edema noted Leg (R), no edema noted Pedal (L), no edema noted Pedal (R), no edema noted Generalized Skin: other - large sacral decubitus with eschar, dti's heels KRISTIE BIRCH Sep 07, 2017 19:56
--- NOTE | 2017-09-07 19:56 | General Progress Note ---
Assessment/Plan Problem List: (1) Altered level of consciousness ICD Codes: R40.4 - Transient alteration of awareness SNOMED: 0499711 (2) Dysphagia ICD Codes: R13.10 - Dysphagia, unspecified SNOMED: 23235116, 659445560 (3) Rhabdomyolysis ICD Codes: M62.82 - Rhabdomyolysis SNOMED: 537699167, 719213871 (4) Diabetes mellitus out of control ICD Codes: E11.65 - Type 2 diabetes mellitus with hyperglycemia SNOMED: 091159600, 01127711 (5) Altered mental status, unspecified ICD Codes: R41.82 - Altered mental status, unspecified SNOMED: 304553034 (6) Hyperkalemia ICD Codes: E87.5 - Hyperkalemia SNOMED: 51013786 (7) DKA (diabetic ketoacidoses) ICD Codes: E13.10 - Other specified diabetes mellitus with ketoacidosis without coma SNOMED: 55337692, 921522001 (8) Sepsis ICD Codes: A41.9 - Sepsis, unspecified organism SNOMED: 64974827 (9) Hypothyroidism ICD Codes: E03.9 - Hypothyroidism, unspecified SNOMED: 58216070 (10) Hyperglycemia ICD Codes: R73.9 - Hyperglycemia, unspecified SNOMED: 33509089 (11) anemia (12) anemia (13) Leukocytosis ICD Codes: D72.829 - Elevated white blood cell count, unspecified SNOMED: 780411468, 971432131 (14) Decubitus ulcer of ankle, stage 4 ICD Codes: L89.504 - Pressure ulcer of unspecified ankle, stage 4 SNOMED: 429473852 (15) Sacral fracture ICD Codes: S32.10XA - Unspecified fracture of sacrum, initial encounter for closed fracture SNOMED: 237332617, 75012827 Assessment/Plan dc plan in process, financial issue d/w CM, increase levemir, recultured, antibiotic per ID leukocytosis from decubiti likely, surgical consult, transfuse for anemia and copd Subjective ROS Limited/Unobtainable: Yes Allergies: Coded Allergies: No Known Allergies (Unverified , 08/18/17) Objective Last 24 Hour Vital Signs Date Time Temp Pulse Resp B/P (MAP) Pulse Ox O2 Delivery O2 Flow Rate FiO2 09/07/17 18:35 97.5 09/07/17 16:00 72 09/07/17 16:00 97.5 71 18 120/58 98 Nasal Cannula 2.0 09/07/17 12:31 76 09/07/17 12:00 97.5 76 18 100/52 98 Nasal Cannula 2.0 09/07/17 09:30 124/59 09/07/17 09:30 124 124/59 09/07/17 08:00 84 09/07/17 08:00 97.8 124 18 124/59 94 Nasal Cannula 2.0 09/07/17 04:00 97.3 83 16 104/44 96 Nasal Cannula 2.0 09/07/17 04:00 84 09/07/17 00:00 98.0 83 16 113/64 96 Nasal Cannula 1.0 09/06/17 23:48 89 09/06/17 20:22 98.1 87 16 109/56 94 Nasal Cannula 2.0 Intake and Output 09/07/17 09/08/17 19:00 07:00 Intake Total 855.000 ml Output Total 350 ml Balance 505.000 ml IV Total 800.000 ml Tube Feeding 55 ml Output Urine Total 350 ml # Bowel Movements 5 Laboratory Tests 09/07/17 04:30: White Blood Count 32.3#*H, Red Blood Count 2.25L, Hemoglobin 7.1L, Hematocrit 21.9L, Mean Corpuscular Volume 98, Mean Corpuscular Hemoglobin 31.8H, Mean Corpuscular Hemoglobin Concent 32.6, Red Cell Distribution Width 15.9H, Platelet Count 254, Mean Platelet Volume 8.8, Neutrophils (%) (Auto) , Lymphocytes (%) (Auto) , Monocytes (%) (Auto) , Eosinophils (%) (Auto) , Basophils (%) (Auto) , Differential Total Cells Counted 100, Neutrophils % ( Manual) 93H, Lymphocytes % (Manual) 3L, Monocytes % (Manual) 2, Eosinophils % ( Manual) 1, Basophils % (Manual) 0, Band Neutrophils 1, Platelet Estimate Adequate, Platelet Morphology Normal, Hypochromasia 1+, Anisocytosis 1+, Thyroid Stimulating Hormone (TSH) 22.183H 09/07/17 08:45: White Blood Count 32.4*H, Red Blood Count 2.34L, Hemoglobin 7.2L, Hematocrit 23.0L, Mean Corpuscular Volume 98, Mean Corpuscular Hemoglobin 30.8, Mean Corpuscular Hemoglobin Concent 31.4L, Red Cell Distribution Width 16.2H, Platelet Count 220, Mean Platelet Volume 7.6, Neutrophils (%) (Auto) , Lymphocytes (%) (Auto) , Monocytes (%) (Auto) , Eosinophils (%) (Auto) , Basophils (%) (Auto) , Differential Total Cells Counted 100, Neutrophils % ( Manual) 86H, Lymphocytes % (Manual) 6L, Monocytes % (Manual) 7, Eosinophils % ( Manual) 0, Basophils % (Manual) 0, Band Neutrophils 1, Platelet Estimate Adequate, Platelet Morphology Normal, Hypochromasia 1+, Anisocytosis 1+, Iron Level 9L, Total Iron Binding Capacity 90L, Percent Iron Saturation 10L, Unsaturated Iron Binding 81L, Ferritin 668H Height (Feet): 5 Height (Inches): 3.00 Weight (Pounds): 119 General Appearance: lethargic, confused EENT: normal ENT inspection Neck: non-tender Cardiovascular: normal rate Respiratory/Chest: lungs clear, decreased breath sounds Abdomen: non tender Edema: no edema noted Arm (L), no edema noted Arm (R), no edema noted Leg (L), no edema noted Leg (R), no edema noted Pedal (L), no edema noted Pedal (R), no edema noted Generalized Skin: other - large sacral decubitus with eschar, dti's heels KRISTIE BIRCH Sep 07, 2017 19:56
--- NOTE | 2017-09-07 19:56 | General Progress Note ---
Assessment/Plan Problem List: (1) Altered level of consciousness ICD Codes: R40.4 - Transient alteration of awareness SNOMED: 6833649 (2) Dysphagia ICD Codes: R13.10 - Dysphagia, unspecified SNOMED: 50399828, 146244489 (3) Rhabdomyolysis ICD Codes: M62.82 - Rhabdomyolysis SNOMED: 740711607, 967052871 (4) Diabetes mellitus out of control ICD Codes: E11.65 - Type 2 diabetes mellitus with hyperglycemia SNOMED: 204314048, 84671122 (5) Altered mental status, unspecified ICD Codes: R41.82 - Altered mental status, unspecified SNOMED: 890569294 (6) Hyperkalemia ICD Codes: E87.5 - Hyperkalemia SNOMED: 22277440 (7) DKA (diabetic ketoacidoses) ICD Codes: E13.10 - Other specified diabetes mellitus with ketoacidosis without coma SNOMED: 75336333, 173108293 (8) Sepsis ICD Codes: A41.9 - Sepsis, unspecified organism SNOMED: 56063299 (9) Hypothyroidism ICD Codes: E03.9 - Hypothyroidism, unspecified SNOMED: 67232532 (10) Hyperglycemia ICD Codes: R73.9 - Hyperglycemia, unspecified SNOMED: 37653200 (11) anemia (12) anemia (13) Leukocytosis ICD Codes: D72.829 - Elevated white blood cell count, unspecified SNOMED: 159124166, 083282786 (14) Decubitus ulcer of ankle, stage 4 ICD Codes: L89.504 - Pressure ulcer of unspecified ankle, stage 4 SNOMED: 336491799 (15) Sacral fracture ICD Codes: S32.10XA - Unspecified fracture of sacrum, initial encounter for closed fracture SNOMED: 526880134, 14466758 Assessment/Plan dc plan in process, financial issue d/w CM, increase levemir, recultured, antibiotic per ID leukocytosis from decubiti likely, surgical consult, transfuse for anemia and copd Subjective ROS Limited/Unobtainable: Yes Allergies: Coded Allergies: No Known Allergies (Unverified , 08/18/17) Objective Last 24 Hour Vital Signs Date Time Temp Pulse Resp B/P (MAP) Pulse Ox O2 Delivery O2 Flow Rate FiO2 09/07/17 18:35 97.5 09/07/17 16:00 72 09/07/17 16:00 97.5 71 18 120/58 98 Nasal Cannula 2.0 09/07/17 12:31 76 09/07/17 12:00 97.5 76 18 100/52 98 Nasal Cannula 2.0 09/07/17 09:30 124/59 09/07/17 09:30 124 124/59 09/07/17 08:00 84 09/07/17 08:00 97.8 124 18 124/59 94 Nasal Cannula 2.0 09/07/17 04:00 97.3 83 16 104/44 96 Nasal Cannula 2.0 09/07/17 04:00 84 09/07/17 00:00 98.0 83 16 113/64 96 Nasal Cannula 1.0 09/06/17 23:48 89 09/06/17 20:22 98.1 87 16 109/56 94 Nasal Cannula 2.0 Intake and Output 09/07/17 09/08/17 19:00 07:00 Intake Total 855.000 ml Output Total 350 ml Balance 505.000 ml IV Total 800.000 ml Tube Feeding 55 ml Output Urine Total 350 ml # Bowel Movements 5 Laboratory Tests 09/07/17 04:30: White Blood Count 32.3#*H, Red Blood Count 2.25L, Hemoglobin 7.1L, Hematocrit 21.9L, Mean Corpuscular Volume 98, Mean Corpuscular Hemoglobin 31.8H, Mean Corpuscular Hemoglobin Concent 32.6, Red Cell Distribution Width 15.9H, Platelet Count 254, Mean Platelet Volume 8.8, Neutrophils (%) (Auto) , Lymphocytes (%) (Auto) , Monocytes (%) (Auto) , Eosinophils (%) (Auto) , Basophils (%) (Auto) , Differential Total Cells Counted 100, Neutrophils % ( Manual) 93H, Lymphocytes % (Manual) 3L, Monocytes % (Manual) 2, Eosinophils % ( Manual) 1, Basophils % (Manual) 0, Band Neutrophils 1, Platelet Estimate Adequate, Platelet Morphology Normal, Hypochromasia 1+, Anisocytosis 1+, Thyroid Stimulating Hormone (TSH) 22.183H 09/07/17 08:45: White Blood Count 32.4*H, Red Blood Count 2.34L, Hemoglobin 7.2L, Hematocrit 23.0L, Mean Corpuscular Volume 98, Mean Corpuscular Hemoglobin 30.8, Mean Corpuscular Hemoglobin Concent 31.4L, Red Cell Distribution Width 16.2H, Platelet Count 220, Mean Platelet Volume 7.6, Neutrophils (%) (Auto) , Lymphocytes (%) (Auto) , Monocytes (%) (Auto) , Eosinophils (%) (Auto) , Basophils (%) (Auto) , Differential Total Cells Counted 100, Neutrophils % ( Manual) 86H, Lymphocytes % (Manual) 6L, Monocytes % (Manual) 7, Eosinophils % ( Manual) 0, Basophils % (Manual) 0, Band Neutrophils 1, Platelet Estimate Adequate, Platelet Morphology Normal, Hypochromasia 1+, Anisocytosis 1+, Iron Level 9L, Total Iron Binding Capacity 90L, Percent Iron Saturation 10L, Unsaturated Iron Binding 81L, Ferritin 668H Height (Feet): 5 Height (Inches): 3.00 Weight (Pounds): 119 General Appearance: lethargic, confused EENT: normal ENT inspection Neck: non-tender Cardiovascular: normal rate Respiratory/Chest: lungs clear, decreased breath sounds Abdomen: non tender Edema: no edema noted Arm (L), no edema noted Arm (R), no edema noted Leg (L), no edema noted Leg (R), no edema noted Pedal (L), no edema noted Pedal (R), no edema noted Generalized Skin: other - large sacral decubitus with eschar, dti's heels KRISTIE BIRCH Sep 07, 2017 19:56
[2017-09-07 20:00] VITALS: BP 121/60
[2017-09-07 20:11] LABS: APPEARANCE,URINE CLEAR; BILIRUBIN, URINE NEGATIVE (NEGATIVE); GLUCOSE, URINE (UA) NEGATIVE (NEGATIVE); KETONES,URINE NEGATIVE (NEGATIVE); LEUKOCYTE ESTERASE ,URINE 2+ (NEGATIVE); NITRITE,URINE NEGATIVE (NEGATIVE); PH,URINE 5 (4.5-8.0); PROTEIN,URINE 1+ (NEGATIVE); UROBILINOGEN,URINE NORMAL MG/DL (0.0-1.0)
[2017-09-07 20:13] LABS: COLOR,URINE YELLOW
[2017-09-07] MEDS: Iron Sucrose 100 MG in NS 55 ML IV SCH (21:45)
--- NOTE | 2017-09-07 22:28 | General Progress Note ---
Assessment/Plan Status: stable, progressing Assessment/Plan agitated at times much improved Subjective Neurologic/Psychiatric: Reports: anxiety, depressed, emotional problems Allergies: Coded Allergies: No Known Allergies (Unverified , 08/18/17) Subjective calmer today and less agitated/ Objective Last 24 Hour Vital Signs Date Time Temp Pulse Resp B/P (MAP) Pulse Ox O2 Delivery O2 Flow Rate FiO2 09/07/17 20:00 68 09/07/17 20:00 97.3 73 20 121/60 94 Nasal Cannula 2.0 09/07/17 18:35 97.5 09/07/17 18:30 Nasal Cannula 2.0 28 09/07/17 18:30 100 Nasal Cannula 2.0 28 09/07/17 16:00 72 09/07/17 16:00 97.5 71 18 120/58 98 Nasal Cannula 2.0 09/07/17 12:31 76 09/07/17 12:00 97.5 76 18 100/52 98 Nasal Cannula 2.0 09/07/17 09:30 124/59 09/07/17 09:30 124 124/59 09/07/17 08:00 84 09/07/17 08:00 97.8 124 18 124/59 94 Nasal Cannula 2.0 09/07/17 04:00 97.3 83 16 104/44 96 Nasal Cannula 2.0 09/07/17 04:00 84 09/07/17 00:00 98.0 83 16 113/64 96 Nasal Cannula 1.0 09/06/17 23:48 89 Intake and Output 09/07/17 09/08/17 19:00 07:00 Intake Total 855.000 ml Output Total 350 ml Balance 505.000 ml IV Total 800.000 ml Tube Feeding 55 ml Output Urine Total 350 ml # Bowel Movements 5 Laboratory Tests 09/07/17 04:30: White Blood Count 32.3#*H, Red Blood Count 2.25L, Hemoglobin 7.1L, Hematocrit 21.9L, Mean Corpuscular Volume 98, Mean Corpuscular Hemoglobin 31.8H, Mean Corpuscular Hemoglobin Concent 32.6, Red Cell Distribution Width 15.9H, Platelet Count 254, Mean Platelet Volume 8.8, Neutrophils (%) (Auto) , Lymphocytes (%) (Auto) , Monocytes (%) (Auto) , Eosinophils (%) (Auto) , Basophils (%) (Auto) , Differential Total Cells Counted 100, Neutrophils % ( Manual) 93H, Lymphocytes % (Manual) 3L, Monocytes % (Manual) 2, Eosinophils % ( Manual) 1, Basophils % (Manual) 0, Band Neutrophils 1, Platelet Estimate Adequate, Platelet Morphology Normal, Hypochromasia 1+, Anisocytosis 1+, Thyroid Stimulating Hormone (TSH) 22.183H 09/07/17 08:45: White Blood Count 32.4*H, Red Blood Count 2.34L, Hemoglobin 7.2L, Hematocrit 23.0L, Mean Corpuscular Volume 98, Mean Corpuscular Hemoglobin 30.8, Mean Corpuscular Hemoglobin Concent 31.4L, Red Cell Distribution Width 16.2H, Platelet Count 220, Mean Platelet Volume 7.6, Neutrophils (%) (Auto) , Lymphocytes (%) (Auto) , Monocytes (%) (Auto) , Eosinophils (%) (Auto) , Basophils (%) (Auto) , Differential Total Cells Counted 100, Neutrophils % ( Manual) 86H, Lymphocytes % (Manual) 6L, Monocytes % (Manual) 7, Eosinophils % ( Manual) 0, Basophils % (Manual) 0, Band Neutrophils 1, Platelet Estimate Adequate, Platelet Morphology Normal, Hypochromasia 1+, Anisocytosis 1+, Iron Level 9L, Total Iron Binding Capacity 90L, Percent Iron Saturation 10L, Unsaturated Iron Binding 81L, Ferritin 668H 09/07/17 19:00: Urine Color Yellow, Urine Appearance Clear, Urine pH 5, Urine Specific [place] 1.020, Urine Protein 1+H, Urine Glucose (UA) Negative, Urine Ketones Negative, Urine Occult Blood Negative, Urine Nitrite Negative, Urine Bilirubin Negative, Urine Urobilinogen Normal, Urine Leukocyte Esterase 2+H, Urine RBC 0-2, Urine WBC 2-4, Urine Squamous Epithelial Cells Few, Urine Bacteria ModerateH, Urine Yeast FewH Height (Feet): 5 Height (Inches): 3.00 Weight (Pounds): 119 General Appearance: no apparent distress, alert Neurologic: alert, responsive, depressed affect Audi Bonilla M.D. Sep 07, 2017 22:28
[2017-09-08 00:19] VITALS: BP 129/67
[2017-09-08] MEDS: NovoLOG Insulin Flexpen SUBQ SCH ×4 (00:33→18:00)
[2017-09-08 04:00] VITALS: BP 137/59
[2017-09-08] MEDS: D5 1/2NS 1,000 ML IV SCH ×2 (07:25→16:39)
[2017-09-08 08:00] VITALS: BP 139/64
[2017-09-08] MEDS: Losartan 50mg tab NG SCH (08:49)
[2017-09-08] MEDS: Citalopram Hydrobromide 10mg Tab GT SCH (08:49)
[2017-09-08] MEDS: KCl 10% 40mEq/30ml liquid NG SCH ×2 (08:50→17:44)
[2017-09-08] MEDS: oxyCODONE HCL/Acetaminophen 5/325mg ORAL PRN ×2 (08:50→16:38)
[2017-09-08] MEDS: Ascorbic Acid 500mg tab NG SCH (08:51)
[2017-09-08] MEDS: Vancomycin oral 125mg/2.5ml ORAL SCH ×4 (08:51→20:35)
[2017-09-08] MEDS: Levemir Flexpen SUBQ SCH ×2 (09:03→20:36)
[2017-09-08] MEDS: Vancomycin 750mg/NS 250ml 250 ML IVPB SCH (10:14)
[2017-09-08 10:35] LABS: HEMATOCRIT 34.9 % (37.0-47.0); HEMOGLOBIN 11.6 G/DL (12.0-16.0); MEAN CORPUSCULAR VOLUME 96 FL (80-99); PLATELET COUNT 261 K/UL (150-450); RED BLOOD COUNT 3.65 M/UL (4.20-5.40); RED CELL DISTRIBUTION WIDTH 15.3 % (11.6-14.8)
[2017-09-08 10:36] LABS: WHITE BLOOD COUNT 26.3 K/UL (4.8-10.8)
[2017-09-08 10:49] LABS: ALANINE AMINOTRANSFERASE 20 U/L (12-78); ALBUMIN 0.9 G/DL (3.4-5.0); ALBUMIN/GLOBULIN RATIO 0.2 (1.0-2.7); ALKALINE PHOSPHATASE 108 U/L (46-116); ANION GAP 9 mmol/L (5-15); ASPARTATE AMINO TRANSFERASE 23 U/L (15-37); BILIRUBIN,TOTAL 0.2 MG/DL (0.2-1.0); BLOOD UREA NITROGEN 13 mg/dL (7-18); CALCIUM 7.7 MG/DL (8.5-10.1); CARBON DIOXIDE 22 MMOL/L (21-32); CHLORIDE 111 MMOL/L (98-107); CREATININE 1.1 MG/DL (0.55-1.30); POTASSIUM 4.5 MMOL/L (3.5-5.1); SODIUM 142 MMOL/L (136-145)
[2017-09-08 12:00] VITALS: BP 114/58
--- NOTE | 2017-09-08 12:47 | Diagnostic Imaging Report ---
Indication: Dyspnea Technique: One view of the chest Comparison: 09/04/2017 Findings: Demonstrated is bilateral diffuse interstitial and alveolar disease, appearing unchanged from the prior exam. There is left basilar atelectasis. Impression: Unchanged, over 4 days, findings as above. No similarity of the exam to all of the prior chest radiographs. This may indicate the findings are due to chronic fibrosis rather than acute process. Correlation with clinical findings is recommended
--- NOTE | 2017-09-08 13:37 | Consultation ---
History of Present Illness General Date patient seen: Sep 08, 2017 Chief Complaint: Altered Level of Consciousness Reason for Consultation: Sacral Ulcer Present Illness HPI 67F with multiple medical comorbidities as noted below here for medical management. upon admission had sacral decubitus ulcer. recently elevated wbc. surgery called to evaluate wound. Allergies: Coded Allergies: No Known Allergies (Unverified , 08/18/17) Medication History Scheduled Alendronate Sodium* (Fosamax*), 70 MG ORAL ONCE A WEEK, (Reported) Amlodipine Besylate* (Amlodipine Besylate*), 10 MG ORAL DAILY, (Reported) Apixaban (Eliquis), 2.5 MG PO BID, (Reported) Ascorbic Acid* (Vitamin C*), 500 MG ORAL DAILY, (Reported) Baclofen* (Baclofen*), 10 MG ORAL THREE TIMES A DAY, (Reported) Citalopram Hydrobromide* (Celexa*), 20 MG ORAL DAILY, (Reported) Ferrous Sulfate* (Ferrous Sulfate*), 325 MG ORAL DAILY, (Reported) Heparin Sod (Porcine) (Heparin Sodium*), 5,000 UNITS SUBQ EVERY 12 HOURS, ( Reported) Insulin Detemir (Levemir), 0 SUBQ BEDTIME, (Reported) Levothyroxine Sodium* (Levothyroxine Sodium*), 75 MCG ORAL DAILY, (Reported) Losartan Potassium* (Losartan Potassium*), 50 MG ORAL DAILY, (Reported) Magnesium Oxide (Magnesium), 400 MG PO BID, (Reported) Morphine Sulfate* (Ms Contin*), 15 MG ORAL EVERY 12 HOURS, (Reported) Multivitamins* (Multivitamins*), 1 TAB ORAL DAILY, (Reported) Pantoprazole* (Protonix*), 40 MG ORAL DAILY, (Reported) Scheduled PRN Acetaminophen* (Tylenol Extra Strength*), 650 MG ORAL Q6H PRN for Mild Pain/ Temp > 100.5, (Reported) Clonidine Hcl* (Catapres*), 0.1 MG ORAL EVERY 6 HOURS PRN for For High Blood Pressure, (Reported) Hydralazine HCl (Hydralazine HCl), 25 MG PO Q8HR PRN for For High Blood Pressure , (Reported) Lorazepam* (Ativan*), 0.5 MG ORAL THREE TIMES A DAY PRN for For Anxiety, ( Reported) Ondansetron* (Zofran*), 4 MG ORAL Q6H PRN for Nausea & Vomiting, (Reported) Oxycodone/Acetaminophen 5-325* (Percocet 5-325 Mg Tablet*), 1 TAB ORAL Q6H PRN for For Pain, (Reported) Miscellaneous Medications Calcium Carbonate (Calcium), 500 MG PO, (Reported) Insulin Human Lispro (Humalog), 0 SUBQ, (Reported) Nutritional Supplement (Nutren), 1,000 ML PO, (Reported) Patient History History Provided By: Patient, Medical Record Healthcare decision maker TAMMY PERES Resuscitation status Full Code Advanced Directive on File No Past Medical/Surgical History Past Medical/Surgical History: (1) Altered level of consciousness (2) Dysphagia (3) Renal insufficiency (4) Rhabdomyolysis (5) Diabetes mellitus out of control (6) Sacral fracture (7) Altered mental status, unspecified (8) Hyperkalemia (9) DKA (diabetic ketoacidoses) (10) Sepsis (11) Hypothyroidism (12) Hyperglycemia (13) Leukocytosis (14) anemia (15) anemia (16) Decubitus ulcer of ankle, stage 4 Review of Systems All Other Systems: negative except mentioned in HPI Physical Exam General Appearance: no apparent distress HEENT: mucous membranes moist Neck: normal inspection Respiratory/Chest: normal breath sounds Cardiovascular/Chest: normal peripheral pulses Abdomen: non tender, soft Physical Exam Narrative large unstageable sacral decubitus ulcer noted with dry eschar. no drainage. no surrounding erythema or signs of infection. Last 24 Hour Vital Signs Date Time Temp Pulse Resp B/P (MAP) Pulse Ox O2 Delivery O2 Flow Rate FiO2 09/08/17 08:49 139/64 09/08/17 08:49 64 139/64 09/08/17 08:00 97.8 64 18 139/64 97 Nasal Cannula 3.0 09/08/17 07:50 66 09/08/17 04:00 97.6 65 18 137/59 99 Nasal Cannula 2.0 09/08/17 04:00 62 09/08/17 00:19 97.3 67 18 129/67 95 Nasal Cannula 2.0 09/08/17 00:00 64 09/07/17 20:00 68 09/07/17 20:00 97.3 73 20 121/60 94 Nasal Cannula 2.0 09/07/17 18:35 97.5 10/19/17 18:30 Nasal Cannula 2.0 28 09/07/17 18:30 100 Nasal Cannula 2.0 28 09/07/17 16:00 72 09/07/17 16:00 97.5 71 18 120/58 98 Nasal Cannula 2.0 Intake and Output 09/08/17 09/09/17 19:00 07:00 Intake Total 40 ml Balance 40 ml IV Total 40 ml Laboratory Tests Test 09/07/17 19:00 09/08/17 10:10 Urine Color Yellow Urine Appearance Clear Urine pH 5 (4.5-8.0) Urine Specific [place] 1.020 (1.005-1.035) Urine Protein 1+ (NEGATIVE) H Urine Glucose (UA) Negative (NEGATIVE) Urine Ketones Negative (NEGATIVE) Urine Occult Blood Negative (NEGATIVE) Urine Nitrite Negative (NEGATIVE) Urine Bilirubin Negative (NEGATIVE) Urine Urobilinogen Normal MG/DL (0.0-1.0) Urine Leukocyte Esterase 2+ (NEGATIVE) H Urine RBC 0-2 /HPF (0 - 2) Urine WBC 2-4 /HPF (0 - 2) Urine Squamous Epithelial Cells Few /LPF (NONE/OCC) Urine Bacteria Moderate /HPF (NONE) H Urine Yeast Few /HPF (NONE) H White Blood Count 26.3 K/UL (4.8-10.8) *H Red Blood Count 3.65 M/UL (4.20-5.40) L Hemoglobin 11.6 G/DL (12.0-16.0) #L Hematocrit 34.9 % (37.0-47.0) #L Mean Corpuscular Volume 96 FL (80-99) Mean Corpuscular Hemoglobin 31.8 PG (27.0-31.0) H Mean Corpuscular Hemoglobin Concent 33.2 G/DL (32.0-36.0) Red Cell Distribution Width 15.3 % (11.6-14.8) H Platelet Count 261 K/UL (150-450) Mean Platelet Volume 8.7 FL (6.5-10.1) Neutrophils (%) (Auto) % (45.0-75.0) Lymphocytes (%) (Auto) % (20.0-45.0) Monocytes (%) (Auto) % (1.0-10.0) Eosinophils (%) (Auto) % (0.0-3.0) Basophils (%) (Auto) % (0.0-2.0) Differential Total Cells Counted 100 Neutrophils % (Manual) 90 % (45-75) H Lymphocytes % (Manual) 4 % (20-45) L Monocytes % (Manual) 6 % (1-10) Eosinophils % (Manual) 0 % (0-3) Basophils % (Manual) 0 % (0-2) Band Neutrophils 0 % (0-8) Platelet Estimate Adequate Platelet Morphology Normal Anisocytosis 1+ Sodium Level 142 MMOL/L (136-145) Potassium Level 4.5 MMOL/L (3.5-5.1) Chloride Level 111 MMOL/L (98-107) H Carbon Dioxide Level 22 MMOL/L (21-32) Anion Gap 9 mmol/L (5-15) Blood Urea Nitrogen 13 mg/dL (7-18) Creatinine 1.1 MG/DL (0.55-1.30) Estimat Glomerular Filtration Rate 59.9 mL/min (>60) Glucose Level 124 MG/DL (74-106) H Calcium Level 7.7 MG/DL (8.5-10.1) L Total Bilirubin 0.2 MG/DL (0.2-1.0) Aspartate Amino Transf (AST/SGOT) 23 U/L (15-37) Alanine Aminotransferase (ALT/SGPT) 20 U/L (12-78) Alkaline Phosphatase 108 U/L (46-116) Total Protein 5.8 G/DL (6.4-8.2) L Albumin 0.9 G/DL (3.4-5.0) L Globulin 4.9 g/dL Albumin/Globulin Ratio 0.2 (1.0-2.7) L Microbiology Date/Time Source Procedure Growth Status 09/07/17 22:00 Sputum Induced Gram Stain - Final Resulted 09/07/17 22:00 Sputum Induced Sputum Culture Pending Resulted 09/07/17 19:00 Indwelling Cath Urine Culture - Preliminary NO GROWTH Resulted Height (Feet): 5 Height (Inches): 3.00 Weight (Pounds): 118 Medications Current Medications Medications (Trade) Dose Ordered Sig/Adonay Route PRN Reason Start Time Stop Time Status Last Admin Dose Admin Acetaminophen (Tylenol) 650 mg Q6H PRN ORAL Mild Pain/Temp > 100.5 08/21/17 20:00 09/18/17 07:59 09/04/17 10:04 Amlodipine Besylate (Norvasc) 10 mg DAILY NG 08/23/17 09:00 09/22/17 08:59 09/08/17 08:49 Ascorbic Acid (Vitamin C) 500 mg DAILY NG 08/23/17 09:00 09/22/17 08:59 09/08/17 08:51 Baclofen (Lioresal) 10 mg THREE TIMES A DAY NG 08/23/17 09:00 09/22/17 08:59 09/08/17 08:50 Citalopram Hydrobromide (celeXA) 20 mg DAILY GT 08/27/17 09:00 09/18/17 08:59 09/08/17 08:49 Clonidine HCl (Catapres) 0.1 mg Q6H PRN NG SBP > 160mmHg 08/23/17 08:30 09/22/17 08:29 Dextrose (Dextrose 50%) STAT PRN IV Hypoglycemia 08/21/17 20:00 09/20/17 19:59 09/05/17 18:34 Dextrose/Sodium Chloride 1,000 ml @ 100 mls/hr Q10H IV 09/07/17 11:00 10/07/17 10:59 09/08/17 07:25 Insulin Aspart (NovoLOG) EVERY 6 HOURS SUBQ 09/04/17 06:00 09/19/17 08:59 09/08/17 12:33 Insulin Detemir (Levemir) 14 units EVERY 12 HOURS SUBQ 09/06/17 21:00 10/06/17 20:59 09/08/17 09:03 Iron Sucrose 100 mg/Sodium Chloride 60 ml @ 240 mls/hr BEDTIME IV 09/07/17 21:00 09/11/17 21:14 09/07/17 21:45 Lansoprazole (Prevacid) 30 mg DAILY NG 08/24/17 09:00 09/23/17 08:59 09/08/17 08:49 Levothyroxine Sodium (Synthroid) 75 mcg ACBREAKFAST NG 08/24/17 06:30 09/23/17 06:29 09/08/17 06:32 Losartan Potassium (Cozaar) 50 mg DAILY NG 08/23/17 09:00 09/22/17 08:59 09/08/17 08:49 Meropenem 1 gm/ Sodium Chloride 100 ml @ 200 mls/hr Q8HR@0500,1300,2100 IVPB 09/07/17 15:00 09/12/17 14:59 09/08/17 12:31 Metronidazole 100 ml @ 100 mls/hr Q8HR@0500,1300,2100 IVPB 09/07/17 15:00 09/14/17 14:59 09/08/17 12:30 Micafungin Sodium 100 mg/Sodium Chloride 100 ml @ 100 mls/hr Q24H IVPB 09/07/17 14:00 09/14/17 13:59 09/07/17 14:10 Multivitamins (Multivitamins) 1 tab DAILY ORAL 08/22/17 09:00 09/18/17 08:59 09/08/17 08:50 Ondansetron HCl (Zofran) 4 mg Q6H PRN NG Nausea & Vomiting 08/26/17 15:30 09/18/17 07:59 Oxycodone/ Acetaminophen (Percocet 5-325) 1 tab EVERY 6 HOURS PRN ORAL Severe Pain (Pain Scale 7-10) 09/02/17 15:45 09/09/17 15:44 09/08/17 08:50 Potassium Chloride (KCl 10% 40mEq Oral solution) 40 meq TWICE A DAY NG 08/24/17 18:00 09/23/17 17:59 09/08/17 08:50 Quetiapine Fumarate (SEROquel) 12.5 mg Q12H PRN ORAL Agitation 08/30/17 11:45 09/29/17 11:44 09/07/17 09:29 Vancomycin HCl (Vanco rx to dose) 1 ea DAILY PRN MISC Per rx protocol 08/28/17 16:15 09/27/17 16:14 Vancomycin HCl (Vancomycin) 125 mg FOUR TIMES A DAY ORAL 09/07/17 14:00 09/14/17 13:59 09/08/17 08:51 Vancomycin/Sodium Chloride 250 ml @ 166.667 mls/hr Q12HR@1000,2200 IVPB 09/05/17 10:00 09/10/17 09:59 09/08/17 10:14 Assessment/Plan Problem List: (1) Decubitus ulcer of sacral area Assessment & Plan: 67F unstageable sacral decubitus ulcer. no signs of active infection. has dry eschar on wound. given size and no active infection would not debride eschar at this time. -no acute surgical intervention. -will follow -keep off wound ICD Codes: L89.159 - Pressure ulcer of sacral region, unspecified stage SNOMED: 811100970 Leopoldo Davila Sep 08, 2017 13:37
--- NOTE | 2017-09-08 14:38 | General Progress Note ---
Assessment/Plan Assessment/Plan Assessment - Respiratory failure - leukocytosis - Anemia - tube feed intolerance - IDDM - s/p PEG Recommendations - Resume feeds - monitor residuals - GT care - Elevate HOB - abx Subjective Allergies: Coded Allergies: No Known Allergies (Unverified , 08/18/17) Subjective above noted s/p PEG - POD #4 TF on hold WBC high, but also ? hemoconcentrated CT abd/pelvis negative Objective Last 24 Hour Vital Signs Date Time Temp Pulse Resp B/P (MAP) Pulse Ox O2 Delivery O2 Flow Rate FiO2 09/08/17 12:00 98.0 64 19 114/58 96 Nasal Cannula 3.0 09/08/17 08:49 139/64 09/08/17 08:49 64 139/64 09/08/17 08:00 97.8 64 18 139/64 97 Nasal Cannula 3.0 09/08/17 07:50 66 09/08/17 04:00 97.6 65 18 137/59 99 Nasal Cannula 2.0 09/08/17 04:00 62 09/08/17 00:19 97.3 67 18 129/67 95 Nasal Cannula 2.0 09/08/17 00:00 64 09/07/17 20:00 68 09/07/17 20:00 97.3 73 20 121/60 94 Nasal Cannula 2.0 09/07/17 18:35 97.5 09/07/17 18:30 Nasal Cannula 2.0 28 09/07/17 18:30 100 Nasal Cannula 2.0 28 09/07/17 16:00 72 09/07/17 16:00 97.5 71 18 120/58 98 Nasal Cannula 2.0 Intake and Output 09/08/17 09/09/17 19:00 07:00 Intake Total 40 ml Balance 40 ml IV Total 40 ml Laboratory Tests 09/07/17 19:00: Urine Color Yellow, Urine Appearance Clear, Urine pH 5, Urine Specific [place] 1.020, Urine Protein 1+H, Urine Glucose (UA) Negative, Urine Ketones Negative, Urine Occult Blood Negative, Urine Nitrite Negative, Urine Bilirubin Negative, Urine Urobilinogen Normal, Urine Leukocyte Esterase 2+H, Urine RBC 0-2, Urine WBC 2-4, Urine Squamous Epithelial Cells Few, Urine Bacteria ModerateH, Urine Yeast FewH 09/08/17 10:10: White Blood Count 26.3*H, Red Blood Count 3.65L, Hemoglobin 11.6#L, Hematocrit 34.9#L, Mean Corpuscular Volume 96, Mean Corpuscular Hemoglobin 31.8H, Mean Corpuscular Hemoglobin Concent 33.2, Red Cell Distribution Width 15.3H, Platelet Count 261, Mean Platelet Volume 8.7, Neutrophils (%) (Auto) , Lymphocytes (%) (Auto) , Monocytes (%) (Auto) , Eosinophils (%) (Auto) , Basophils (%) (Auto) , Differential Total Cells Counted 100, Neutrophils % ( Manual) 90H, Lymphocytes % (Manual) 4L, Monocytes % (Manual) 6, Eosinophils % ( Manual) 0, Basophils % (Manual) 0, Band Neutrophils 0, Platelet Estimate Adequate, Platelet Morphology Normal, Anisocytosis 1+, Sodium Level 142, Potassium Level 4.5, Chloride Level 111H, Carbon Dioxide Level 22, Anion Gap 9, Blood Urea Nitrogen 13, Creatinine 1.1, Estimat Glomerular Filtration Rate 59.9 , Glucose Level 124H, Calcium Level 7.7L, Total Bilirubin 0.2, Aspartate Amino Transf (AST/SGOT) 23, Alanine Aminotransferase (ALT/SGPT) 20, Alkaline Phosphatase 108, Total Protein 5.8L, Albumin 0.9L, Globulin 4.9, Albumin/ Globulin Ratio 0.2L Height (Feet): 5 Height (Inches): 3.00 Weight (Pounds): 118 Objective Thin AA woman NCAT Neck supple Chest: b/l coarse BS RRR soft mild distention and TTP, (+) GT no edema ERIKA ESPINOSA Sep 08, 2017 14:38
--- NOTE | 2017-09-08 15:03 | General Progress Note ---
Assessment/Plan Problem List: (1) Altered level of consciousness ICD Codes: R40.4 - Transient alteration of awareness SNOMED: 4813106 (2) Dysphagia ICD Codes: R13.10 - Dysphagia, unspecified SNOMED: 05708786, 468810717 (3) Rhabdomyolysis ICD Codes: M62.82 - Rhabdomyolysis SNOMED: 184882689, 277841639 (4) Diabetes mellitus out of control ICD Codes: E11.65 - Type 2 diabetes mellitus with hyperglycemia SNOMED: 460349879, 57610627 (5) Altered mental status, unspecified ICD Codes: R41.82 - Altered mental status, unspecified SNOMED: 121079647 (6) Hyperkalemia ICD Codes: E87.5 - Hyperkalemia SNOMED: 94899815 (7) DKA (diabetic ketoacidoses) ICD Codes: E13.10 - Other specified diabetes mellitus with ketoacidosis without coma SNOMED: 24387994, 955324088 (8) Sepsis ICD Codes: A41.9 - Sepsis, unspecified organism SNOMED: 55574465 (9) Hypothyroidism ICD Codes: E03.9 - Hypothyroidism, unspecified SNOMED: 39999614 (10) Hyperglycemia ICD Codes: R73.9 - Hyperglycemia, unspecified SNOMED: 23275165 (11) anemia (12) anemia (13) Leukocytosis ICD Codes: D72.829 - Elevated white blood cell count, unspecified SNOMED: 195543905, 765133653 (14) Decubitus ulcer of ankle, stage 4 ICD Codes: L89.504 - Pressure ulcer of unspecified ankle, stage 4 SNOMED: 781577458 (15) Sacral fracture ICD Codes: S32.10XA - Unspecified fracture of sacrum, initial encounter for closed fracture SNOMED: 666119441, 18187496 Assessment/Plan dc plan in process, financial issue d/w CM, increase levemir, recultured, antibiotic per ID leukocytosis from decubiti likely, surgical consult, no procedure now, transfused for anemia and copd Subjective ROS Limited/Unobtainable: Yes Allergies: Coded Allergies: No Known Allergies (Unverified , 08/18/17) Objective Last 24 Hour Vital Signs Date Time Temp Pulse Resp B/P (MAP) Pulse Ox O2 Delivery O2 Flow Rate FiO2 09/08/17 12:00 98.0 64 19 114/58 96 Nasal Cannula 3.0 09/08/17 08:49 139/64 09/08/17 08:49 64 139/64 09/08/17 08:00 97.8 64 18 139/64 97 Nasal Cannula 3.0 09/08/17 07:50 66 09/08/17 04:00 97.6 65 18 137/59 99 Nasal Cannula 2.0 09/08/17 04:00 62 09/08/17 00:19 97.3 67 18 129/67 95 Nasal Cannula 2.0 09/08/17 00:00 64 09/07/17 20:00 68 09/07/17 20:00 97.3 73 20 121/60 94 Nasal Cannula 2.0 09/07/17 18:35 97.5 09/07/17 18:30 Nasal Cannula 2.0 28 09/07/17 18:30 100 Nasal Cannula 2.0 28 09/07/17 16:00 72 09/07/17 16:00 97.5 71 18 120/58 98 Nasal Cannula 2.0 Intake and Output 09/08/17 09/09/17 18:59 06:59 Intake Total 140 ml Balance 140 ml IV Total 140 ml Laboratory Tests 09/07/17 19:00: Urine Color Yellow, Urine Appearance Clear, Urine pH 5, Urine Specific [place] 1.020, Urine Protein 1+H, Urine Glucose (UA) Negative, Urine Ketones Negative, Urine Occult Blood Negative, Urine Nitrite Negative, Urine Bilirubin Negative, Urine Urobilinogen Normal, Urine Leukocyte Esterase 2+H, Urine RBC 0-2, Urine WBC 2-4, Urine Squamous Epithelial Cells Few, Urine Bacteria ModerateH, Urine Yeast FewH 09/08/17 10:10: White Blood Count 26.3*H, Red Blood Count 3.65L, Hemoglobin 11.6#L, Hematocrit 34.9#L, Mean Corpuscular Volume 96, Mean Corpuscular Hemoglobin 31.8H, Mean Corpuscular Hemoglobin Concent 33.2, Red Cell Distribution Width 15.3H, Platelet Count 261, Mean Platelet Volume 8.7, Neutrophils (%) (Auto) , Lymphocytes (%) (Auto) , Monocytes (%) (Auto) , Eosinophils (%) (Auto) , Basophils (%) (Auto) , Differential Total Cells Counted 100, Neutrophils % ( Manual) 90H, Lymphocytes % (Manual) 4L, Monocytes % (Manual) 6, Eosinophils % ( Manual) 0, Basophils % (Manual) 0, Band Neutrophils 0, Platelet Estimate Adequate, Platelet Morphology Normal, Anisocytosis 1+, Sodium Level 142, Potassium Level 4.5, Chloride Level 111H, Carbon Dioxide Level 22, Anion Gap 9, Blood Urea Nitrogen 13, Creatinine 1.1, Estimat Glomerular Filtration Rate 59.9 , Glucose Level 124H, Calcium Level 7.7L, Total Bilirubin 0.2, Aspartate Amino Transf (AST/SGOT) 23, Alanine Aminotransferase (ALT/SGPT) 20, Alkaline Phosphatase 108, Total Protein 5.8L, Albumin 0.9L, Globulin 4.9, Albumin/ Globulin Ratio 0.2L Height (Feet): 5 Height (Inches): 3.00 Weight (Pounds): 118 General Appearance: no apparent distress, confused EENT: PERRL/EOMI Neck: normal alignment Cardiovascular: normal rate, regular rhythm Respiratory/Chest: lungs clear, normal breath sounds Abdomen: non tender, soft, no organomegaly Extremities: other - contractures Neurologic: motor weakness, disoriented Skin: other - large scaral dcecub, heel dti KRISTIE BIRCH Sep 08, 2017 15:03
--- NOTE | 2017-09-08 15:03 | General Progress Note ---
Assessment/Plan Problem List: (1) Altered level of consciousness ICD Codes: R40.4 - Transient alteration of awareness SNOMED: 8300867 (2) Dysphagia ICD Codes: R13.10 - Dysphagia, unspecified SNOMED: 34041626, 591065503 (3) Rhabdomyolysis ICD Codes: M62.82 - Rhabdomyolysis SNOMED: 417444177, 983256820 (4) Diabetes mellitus out of control ICD Codes: E11.65 - Type 2 diabetes mellitus with hyperglycemia SNOMED: 441454038, 11287824 (5) Altered mental status, unspecified ICD Codes: R41.82 - Altered mental status, unspecified SNOMED: 277979849 (6) Hyperkalemia ICD Codes: E87.5 - Hyperkalemia SNOMED: 30671944 (7) DKA (diabetic ketoacidoses) ICD Codes: E13.10 - Other specified diabetes mellitus with ketoacidosis without coma SNOMED: 60458964, 616307526 (8) Sepsis ICD Codes: A41.9 - Sepsis, unspecified organism SNOMED: 84673789 (9) Hypothyroidism ICD Codes: E03.9 - Hypothyroidism, unspecified SNOMED: 01491322 (10) Hyperglycemia ICD Codes: R73.9 - Hyperglycemia, unspecified SNOMED: 06653623 (11) anemia (12) anemia (13) Leukocytosis ICD Codes: D72.829 - Elevated white blood cell count, unspecified SNOMED: 095678670, 982989471 (14) Decubitus ulcer of ankle, stage 4 ICD Codes: L89.504 - Pressure ulcer of unspecified ankle, stage 4 SNOMED: 698608646 (15) Sacral fracture ICD Codes: S32.10XA - Unspecified fracture of sacrum, initial encounter for closed fracture SNOMED: 779054762, 22662496 Assessment/Plan dc plan in process, financial issue d/w CM, increase levemir, recultured, antibiotic per ID leukocytosis from decubiti likely, surgical consult, no procedure now, transfused for anemia and copd Subjective ROS Limited/Unobtainable: Yes Allergies: Coded Allergies: No Known Allergies (Unverified , 08/18/17) Objective Last 24 Hour Vital Signs Date Time Temp Pulse Resp B/P (MAP) Pulse Ox O2 Delivery O2 Flow Rate FiO2 09/08/17 12:00 98.0 64 19 114/58 96 Nasal Cannula 3.0 09/08/17 08:49 139/64 09/08/17 08:49 64 139/64 09/08/17 08:00 97.8 64 18 139/64 97 Nasal Cannula 3.0 09/08/17 07:50 66 09/08/17 04:00 97.6 65 18 137/59 99 Nasal Cannula 2.0 09/08/17 04:00 62 09/08/17 00:19 97.3 67 18 129/67 95 Nasal Cannula 2.0 09/08/17 00:00 64 09/07/17 20:00 68 09/07/17 20:00 97.3 73 20 121/60 94 Nasal Cannula 2.0 09/07/17 18:35 97.5 09/07/17 18:30 Nasal Cannula 2.0 28 09/07/17 18:30 100 Nasal Cannula 2.0 28 09/07/17 16:00 72 09/07/17 16:00 97.5 71 18 120/58 98 Nasal Cannula 2.0 Intake and Output 09/08/17 09/09/17 18:59 06:59 Intake Total 140 ml Balance 140 ml IV Total 140 ml Laboratory Tests 09/07/17 19:00: Urine Color Yellow, Urine Appearance Clear, Urine pH 5, Urine Specific [place] 1.020, Urine Protein 1+H, Urine Glucose (UA) Negative, Urine Ketones Negative, Urine Occult Blood Negative, Urine Nitrite Negative, Urine Bilirubin Negative, Urine Urobilinogen Normal, Urine Leukocyte Esterase 2+H, Urine RBC 0-2, Urine WBC 2-4, Urine Squamous Epithelial Cells Few, Urine Bacteria ModerateH, Urine Yeast FewH 09/08/17 10:10: White Blood Count 26.3*H, Red Blood Count 3.65L, Hemoglobin 11.6#L, Hematocrit 34.9#L, Mean Corpuscular Volume 96, Mean Corpuscular Hemoglobin 31.8H, Mean Corpuscular Hemoglobin Concent 33.2, Red Cell Distribution Width 15.3H, Platelet Count 261, Mean Platelet Volume 8.7, Neutrophils (%) (Auto) , Lymphocytes (%) (Auto) , Monocytes (%) (Auto) , Eosinophils (%) (Auto) , Basophils (%) (Auto) , Differential Total Cells Counted 100, Neutrophils % ( Manual) 90H, Lymphocytes % (Manual) 4L, Monocytes % (Manual) 6, Eosinophils % ( Manual) 0, Basophils % (Manual) 0, Band Neutrophils 0, Platelet Estimate Adequate, Platelet Morphology Normal, Anisocytosis 1+, Sodium Level 142, Potassium Level 4.5, Chloride Level 111H, Carbon Dioxide Level 22, Anion Gap 9, Blood Urea Nitrogen 13, Creatinine 1.1, Estimat Glomerular Filtration Rate 59.9 , Glucose Level 124H, Calcium Level 7.7L, Total Bilirubin 0.2, Aspartate Amino Transf (AST/SGOT) 23, Alanine Aminotransferase (ALT/SGPT) 20, Alkaline Phosphatase 108, Total Protein 5.8L, Albumin 0.9L, Globulin 4.9, Albumin/ Globulin Ratio 0.2L Height (Feet): 5 Height (Inches): 3.00 Weight (Pounds): 118 General Appearance: no apparent distress, confused EENT: PERRL/EOMI Neck: normal alignment Cardiovascular: normal rate, regular rhythm Respiratory/Chest: lungs clear, normal breath sounds Abdomen: non tender, soft, no organomegaly Extremities: other - contractures Neurologic: motor weakness, disoriented Skin: other - large scaral dcecub, heel dti KRISTIE BIRCH Sep 08, 2017 15:03
--- NOTE | 2017-09-08 15:03 | General Progress Note ---
Assessment/Plan Problem List: (1) Altered level of consciousness ICD Codes: R40.4 - Transient alteration of awareness SNOMED: 4636602 (2) Dysphagia ICD Codes: R13.10 - Dysphagia, unspecified SNOMED: 23622411, 527148027 (3) Rhabdomyolysis ICD Codes: M62.82 - Rhabdomyolysis SNOMED: 589962915, 191096306 (4) Diabetes mellitus out of control ICD Codes: E11.65 - Type 2 diabetes mellitus with hyperglycemia SNOMED: 078419656, 29440196 (5) Altered mental status, unspecified ICD Codes: R41.82 - Altered mental status, unspecified SNOMED: 263610723 (6) Hyperkalemia ICD Codes: E87.5 - Hyperkalemia SNOMED: 26597251 (7) DKA (diabetic ketoacidoses) ICD Codes: E13.10 - Other specified diabetes mellitus with ketoacidosis without coma SNOMED: 58832647, 171471598 (8) Sepsis ICD Codes: A41.9 - Sepsis, unspecified organism SNOMED: 69876109 (9) Hypothyroidism ICD Codes: E03.9 - Hypothyroidism, unspecified SNOMED: 80454870 (10) Hyperglycemia ICD Codes: R73.9 - Hyperglycemia, unspecified SNOMED: 02432128 (11) anemia (12) anemia (13) Leukocytosis ICD Codes: D72.829 - Elevated white blood cell count, unspecified SNOMED: 423562598, 202517768 (14) Decubitus ulcer of ankle, stage 4 ICD Codes: L89.504 - Pressure ulcer of unspecified ankle, stage 4 SNOMED: 144718822 (15) Sacral fracture ICD Codes: S32.10XA - Unspecified fracture of sacrum, initial encounter for closed fracture SNOMED: 431223419, 62060522 Assessment/Plan dc plan in process, financial issue d/w CM, increase levemir, recultured, antibiotic per ID leukocytosis from decubiti likely, surgical consult, no procedure now, transfused for anemia and copd Subjective ROS Limited/Unobtainable: Yes Allergies: Coded Allergies: No Known Allergies (Unverified , 08/18/17) Objective Last 24 Hour Vital Signs Date Time Temp Pulse Resp B/P (MAP) Pulse Ox O2 Delivery O2 Flow Rate FiO2 09/08/17 12:00 98.0 64 19 114/58 96 Nasal Cannula 3.0 09/08/17 08:49 139/64 09/08/17 08:49 64 139/64 09/08/17 08:00 97.8 64 18 139/64 97 Nasal Cannula 3.0 09/08/17 07:50 66 09/08/17 04:00 97.6 65 18 137/59 99 Nasal Cannula 2.0 09/08/17 04:00 62 09/08/17 00:19 97.3 67 18 129/67 95 Nasal Cannula 2.0 09/08/17 00:00 64 09/07/17 20:00 68 09/07/17 20:00 97.3 73 20 121/60 94 Nasal Cannula 2.0 09/07/17 18:35 97.5 09/07/17 18:30 Nasal Cannula 2.0 28 09/07/17 18:30 100 Nasal Cannula 2.0 28 09/07/17 16:00 72 09/07/17 16:00 97.5 71 18 120/58 98 Nasal Cannula 2.0 Intake and Output 09/08/17 09/09/17 18:59 06:59 Intake Total 140 ml Balance 140 ml IV Total 140 ml Laboratory Tests 09/07/17 19:00: Urine Color Yellow, Urine Appearance Clear, Urine pH 5, Urine Specific [place] 1.020, Urine Protein 1+H, Urine Glucose (UA) Negative, Urine Ketones Negative, Urine Occult Blood Negative, Urine Nitrite Negative, Urine Bilirubin Negative, Urine Urobilinogen Normal, Urine Leukocyte Esterase 2+H, Urine RBC 0-2, Urine WBC 2-4, Urine Squamous Epithelial Cells Few, Urine Bacteria ModerateH, Urine Yeast FewH 09/08/17 10:10: White Blood Count 26.3*H, Red Blood Count 3.65L, Hemoglobin 11.6#L, Hematocrit 34.9#L, Mean Corpuscular Volume 96, Mean Corpuscular Hemoglobin 31.8H, Mean Corpuscular Hemoglobin Concent 33.2, Red Cell Distribution Width 15.3H, Platelet Count 261, Mean Platelet Volume 8.7, Neutrophils (%) (Auto) , Lymphocytes (%) (Auto) , Monocytes (%) (Auto) , Eosinophils (%) (Auto) , Basophils (%) (Auto) , Differential Total Cells Counted 100, Neutrophils % ( Manual) 90H, Lymphocytes % (Manual) 4L, Monocytes % (Manual) 6, Eosinophils % ( Manual) 0, Basophils % (Manual) 0, Band Neutrophils 0, Platelet Estimate Adequate, Platelet Morphology Normal, Anisocytosis 1+, Sodium Level 142, Potassium Level 4.5, Chloride Level 111H, Carbon Dioxide Level 22, Anion Gap 9, Blood Urea Nitrogen 13, Creatinine 1.1, Estimat Glomerular Filtration Rate 59.9 , Glucose Level 124H, Calcium Level 7.7L, Total Bilirubin 0.2, Aspartate Amino Transf (AST/SGOT) 23, Alanine Aminotransferase (ALT/SGPT) 20, Alkaline Phosphatase 108, Total Protein 5.8L, Albumin 0.9L, Globulin 4.9, Albumin/ Globulin Ratio 0.2L Height (Feet): 5 Height (Inches): 3.00 Weight (Pounds): 118 General Appearance: no apparent distress, confused EENT: PERRL/EOMI Neck: normal alignment Cardiovascular: normal rate, regular rhythm Respiratory/Chest: lungs clear, normal breath sounds Abdomen: non tender, soft, no organomegaly Extremities: other - contractures Neurologic: motor weakness, disoriented Skin: other - large scaral dcecub, heel dti KRISTIE BIRCH Sep 08, 2017 15:03
[2017-09-08 16:00] VITALS: BP 124/63
[2017-09-08 20:05] VITALS: BP 128/68
[2017-09-08] MEDS: Iron Sucrose 100 MG in NS 55 ML IV SCH (20:35)
[2017-09-08] MEDS ORDERED: Tubing IV Secondary IV ONE ×2 (21:39→21:41)
[2017-09-08] MEDS ORDERED: NS 500ML IV ONE (21:39)
[2017-09-08] MEDS ORDERED: D5 1/2NS 1000ml IV ONE ×2 (21:39→21:41)
[2017-09-08] MEDS ORDERED: Tubing IV Blood Pump IV ONE (21:41)
--- NOTE | 2017-09-08 21:54 | General Progress Note ---
Assessment/Plan Status: stable Assessment/Plan agitated at times much improved Subjective Constitutional: Reports: malaise, weakness Neurologic/Psychiatric: Reports: anxiety, depressed, emotional problems Allergies: Coded Allergies: No Known Allergies (Unverified , 08/18/17) Subjective calmer today and less agitated/ Objective Last 24 Hour Vital Signs Date Time Temp Pulse Resp B/P (MAP) Pulse Ox O2 Delivery O2 Flow Rate FiO2 09/08/17 20:05 97.8 69 20 128/68 93 Nasal Cannula 3.5 09/08/17 19:53 Nasal Cannula 3.0 32 09/08/17 19:53 95 Nasal Cannula 3.0 32 09/08/17 16:00 97.7 66 23 124/63 95 Nasal Cannula 3.0 09/08/17 16:00 59 09/08/17 12:00 98.0 64 19 114/58 96 Nasal Cannula 3.0 09/08/17 12:00 61 09/08/17 08:49 139/64 09/08/17 08:49 64 139/64 09/08/17 08:00 97.8 64 18 139/64 97 Nasal Cannula 3.0 09/08/17 07:50 66 09/08/17 04:00 97.6 65 18 137/59 99 Nasal Cannula 2.0 09/08/17 04:00 62 09/08/17 00:19 97.3 67 18 129/67 95 Nasal Cannula 2.0 09/08/17 00:00 64 Intake and Output 09/08/17 09/09/17 19:00 07:00 Intake Total 1890.000 ml Output Total 450 ml Balance 1440.000 ml Free Water 30 ml IV Total 1690.000 ml Tube Feeding 120 ml Other 50 ml Output Urine Total 450 ml Laboratory Tests 09/08/17 10:10: White Blood Count 26.3*H, Red Blood Count 3.65L, Hemoglobin 11.6#L, Hematocrit 34.9#L, Mean Corpuscular Volume 96, Mean Corpuscular Hemoglobin 31.8H, Mean Corpuscular Hemoglobin Concent 33.2, Red Cell Distribution Width 15.3H, Platelet Count 261, Mean Platelet Volume 8.7, Neutrophils (%) (Auto) , Lymphocytes (%) (Auto) , Monocytes (%) (Auto) , Eosinophils (%) (Auto) , Basophils (%) (Auto) , Differential Total Cells Counted 100, Neutrophils % ( Manual) 90H, Lymphocytes % (Manual) 4L, Monocytes % (Manual) 6, Eosinophils % ( Manual) 0, Basophils % (Manual) 0, Band Neutrophils 0, Platelet Estimate Adequate, Platelet Morphology Normal, Anisocytosis 1+, Sodium Level 142, Potassium Level 4.5, Chloride Level 111H, Carbon Dioxide Level 22, Anion Gap 9, Blood Urea Nitrogen 13, Creatinine 1.1, Estimat Glomerular Filtration Rate 59.9 , Glucose Level 124H, Calcium Level 7.7L, Total Bilirubin 0.2, Aspartate Amino Transf (AST/SGOT) 23, Alanine Aminotransferase (ALT/SGPT) 20, Alkaline Phosphatase 108, Total Protein 5.8L, Albumin 0.9L, Globulin 4.9, Albumin/ Globulin Ratio 0.2L 09/08/17 20:55: Vancomycin Level Trough 22.4H Height (Feet): 5 Height (Inches): 3.00 Weight (Pounds): 118 General Appearance: no apparent distress, alert, overweight Neurologic: alert, responsive, depressed affect Audi Bonilla M.D. Sep 08, 2017 21:54
[2017-09-09] VITALS (7 sets, daily range): BP systolic 120–158; BP diastolic 64–80
[2017-09-09] MEDS: Meropenem 1gm/NS 110ml IVPB SCH ×4 (00:37→13:00)
[2017-09-09] MEDS: NovoLOG Insulin Flexpen SUBQ SCH ×4 (00:40→17:34)
[2017-09-09] MEDS: oxyCODONE HCL/Acetaminophen 5/325mg ORAL PRN ×2 (01:29→22:54)
[2017-09-09] MEDS: D5 1/2NS 1,000 ML IV SCH ×3 (04:27→14:50)
--- NOTE | 2017-09-09 07:01 | General Progress Note ---
Assessment/Plan Problem List: (1) DKA (diabetic ketoacidoses) ICD Codes: E13.10 - Other specified diabetes mellitus with ketoacidosis without coma SNOMED: 29445144, 307902624 (2) Altered level of consciousness ICD Codes: R40.4 - Transient alteration of awareness SNOMED: 2243065 (3) Hyperkalemia ICD Codes: E87.5 - Hyperkalemia SNOMED: 90695801 (4) Rhabdomyolysis ICD Codes: M62.82 - Rhabdomyolysis SNOMED: 114954272, 858382927 (5) Diabetes mellitus out of control ICD Codes: E11.65 - Type 2 diabetes mellitus with hyperglycemia SNOMED: 829055155, 31068250 (6) Sepsis ICD Codes: A41.9 - Sepsis, unspecified organism SNOMED: 75865572 (7) Hypothyroidism ICD Codes: E03.9 - Hypothyroidism, unspecified SNOMED: 89213615 Assessment/Plan continue Levemir 14 units bid continue Novolog sliding scale every 6 hours TSH is higher - increased Levothyroxine to 100 mcg daily repeat TSH in 2 weeks Subjective ROS Limited/Unobtainable: Yes Allergies: Coded Allergies: No Known Allergies (Unverified , 08/18/17) Subjective events noted - interval notes reviewed Objective Last 24 Hour Vital Signs Date Time Temp Pulse Resp B/P (MAP) Pulse Ox O2 Delivery O2 Flow Rate FiO2 09/09/17 04:07 97.8 70 20 120/64 98 Nasal Cannula 3.5 09/09/17 04:00 97.8 70 20 128/64 98 Nasal Cannula 3.5 09/09/17 03:58 69 09/09/17 02:30 97.7 09/09/17 00:00 97.7 68 20 147/68 97 Nasal Cannula 3.5 09/09/17 00:00 70 09/08/17 20:05 97.8 69 20 128/68 93 Nasal Cannula 3.5 09/08/17 20:00 67 09/08/17 19:53 Nasal Cannula 3.0 32 09/08/17 19:53 95 Nasal Cannula 3.0 32 09/08/17 16:00 97.7 66 23 124/63 95 Nasal Cannula 3.0 09/08/17 16:00 59 09/08/17 12:00 98.0 64 19 114/58 96 Nasal Cannula 3.0 09/08/17 12:00 61 09/08/17 08:49 139/64 09/08/17 08:49 64 139/64 09/08/17 08:00 97.8 64 18 139/64 97 Nasal Cannula 3.0 09/08/17 07:50 66 Laboratory Tests 09/08/17 10:10: White Blood Count 26.3*H, Red Blood Count 3.65L, Hemoglobin 11.6#L, Hematocrit 34.9#L, Mean Corpuscular Volume 96, Mean Corpuscular Hemoglobin 31.8H, Mean Corpuscular Hemoglobin Concent 33.2, Red Cell Distribution Width 15.3H, Platelet Count 261, Mean Platelet Volume 8.7, Neutrophils (%) (Auto) , Lymphocytes (%) (Auto) , Monocytes (%) (Auto) , Eosinophils (%) (Auto) , Basophils (%) (Auto) , Differential Total Cells Counted 100, Neutrophils % ( Manual) 90H, Lymphocytes % (Manual) 4L, Monocytes % (Manual) 6, Eosinophils % ( Manual) 0, Basophils % (Manual) 0, Band Neutrophils 0, Platelet Estimate Adequate, Platelet Morphology Normal, Anisocytosis 1+, Sodium Level 142, Potassium Level 4.5, Chloride Level 111H, Carbon Dioxide Level 22, Anion Gap 9, Blood Urea Nitrogen 13, Creatinine 1.1, Estimat Glomerular Filtration Rate 59.9 , Glucose Level 124H, Calcium Level 7.7L, Total Bilirubin 0.2, Aspartate Amino Transf (AST/SGOT) 23, Alanine Aminotransferase (ALT/SGPT) 20, Alkaline Phosphatase 108, Total Protein 5.8L, Albumin 0.9L, Globulin 4.9, Albumin/ Globulin Ratio 0.2L 09/08/17 20:55: Vancomycin Level Trough 22.4H Height (Feet): 5 Height (Inches): 3.00 Weight (Pounds): 118 General Appearance: no apparent distress Neck: normal alignment Cardiovascular: normal rate Respiratory/Chest: decreased breath sounds Abdomen: normal bowel sounds Objective Current Medications Medications (Trade) Dose Ordered Sig/Adonay Route PRN Reason Start Time Stop Time Status Last Admin Dose Admin Acetaminophen (Tylenol) 650 mg Q6H PRN ORAL Mild Pain/Temp > 100.5 08/21/17 20:00 09/18/17 07:59 09/04/17 10:04 Amlodipine Besylate (Norvasc) 10 mg DAILY NG 08/23/17 09:00 09/22/17 08:59 09/08/17 08:49 Ascorbic Acid (Vitamin C) 500 mg DAILY NG 08/23/17 09:00 09/22/17 08:59 09/08/17 08:51 Baclofen (Lioresal) 10 mg THREE TIMES A DAY NG 08/23/17 09:00 09/22/17 08:59 09/08/17 17:44 Citalopram Hydrobromide (celeXA) 20 mg DAILY GT 08/27/17 09:00 09/18/17 08:59 09/08/17 08:49 Clonidine HCl (Catapres) 0.1 mg Q6H PRN NG SBP > 160mmHg 08/23/17 08:30 09/22/17 08:29 Dextrose (Dextrose 50%) STAT PRN IV Hypoglycemia 08/21/17 20:00 09/20/17 19:59 09/05/17 18:34 Dextrose/Sodium Chloride 1,000 ml @ 100 mls/hr Q10H IV 09/07/17 11:00 10/07/17 10:59 09/09/17 04:27 Insulin Aspart (NovoLOG) EVERY 6 HOURS SUBQ 09/04/17 06:00 09/19/17 08:59 09/09/17 05:36 Insulin Detemir (Levemir) 14 units EVERY 12 HOURS SUBQ 09/06/17 21:00 10/06/17 20:59 09/08/17 20:36 Iron Sucrose 100 mg/Sodium Chloride 60 ml @ 240 mls/hr BEDTIME IV 09/07/17 21:00 09/11/17 21:14 09/08/17 20:35 Lansoprazole (Prevacid) 30 mg DAILY NG 08/24/17 09:00 09/23/17 08:59 09/08/17 08:49 Levothyroxine Sodium (Synthroid) 75 mcg ACBREAKFAST NG 08/24/17 06:30 09/23/17 06:29 09/09/17 06:38 Losartan Potassium (Cozaar) 50 mg DAILY NG 08/23/17 09:00 09/22/17 08:59 09/08/17 08:49 Meropenem 1 gm/ Sodium Chloride 110 ml @ 220 mls/hr Q12HR@0100,1300 IVPB 09/09/17 01:00 09/14/17 00:59 09/09/17 00:37 Metronidazole 100 ml @ 100 mls/hr Q8HR@0500,1300,2100 IVPB 09/07/17 15:00 09/14/17 14:59 09/09/17 04:26 Micafungin Sodium 100 mg/Sodium Chloride 100 ml @ 100 mls/hr Q24H IVPB 09/07/17 14:00 09/14/17 13:59 09/08/17 14:36 Multivitamins (Multivitamins) 1 tab DAILY ORAL 08/22/17 09:00 09/18/17 08:59 09/08/17 08:50 Ondansetron HCl (Zofran) 4 mg Q6H PRN NG Nausea & Vomiting 08/26/17 15:30 09/18/17 07:59 Oxycodone/ Acetaminophen (Percocet 5-325) 1 tab EVERY 6 HOURS PRN ORAL Severe Pain (Pain Scale 7-10) 09/02/17 15:45 09/09/17 15:44 09/09/17 01:29 Potassium Chloride (KCl 10% 40mEq Oral solution) 40 meq TWICE A DAY NG 08/24/17 18:00 09/23/17 17:59 09/08/17 17:44 Quetiapine Fumarate (SEROquel) 12.5 mg Q12H PRN ORAL Agitation 08/30/17 11:45 09/29/17 11:44 09/07/17 09:29 Vancomycin HCl (Vanco rx to dose) 1 ea DAILY PRN MISC Per rx protocol 08/28/17 16:15 09/27/17 16:14 Vancomycin HCl (Vancomycin) 125 mg FOUR TIMES A DAY ORAL 09/07/17 14:00 09/14/17 13:59 09/08/17 20:35 Item Value Date Time Bedside Blood Glucose 130 mg/dl H 09/09/17 0600 Bedside Blood Glucose 111 mg/dl 09/09/17 0040 Bedside Blood Glucose 104 mg/dl 09/08/17 2036 Bedside Blood Glucose 92 mg/dl 09/08/17 1857 Bedside Blood Glucose 113 mg/dl 09/08/17 1233 01/19/92 0000 KAYLEE DARNELL Sep 09, 2017 07:01
--- NOTE | 2017-09-09 07:01 | General Progress Note ---
Assessment/Plan Problem List: (1) DKA (diabetic ketoacidoses) ICD Codes: E13.10 - Other specified diabetes mellitus with ketoacidosis without coma SNOMED: 16467290, 067173005 (2) Altered level of consciousness ICD Codes: R40.4 - Transient alteration of awareness SNOMED: 5926179 (3) Hyperkalemia ICD Codes: E87.5 - Hyperkalemia SNOMED: 60031964 (4) Rhabdomyolysis ICD Codes: M62.82 - Rhabdomyolysis SNOMED: 519533531, 465326967 (5) Diabetes mellitus out of control ICD Codes: E11.65 - Type 2 diabetes mellitus with hyperglycemia SNOMED: 146385055, 35782964 (6) Sepsis ICD Codes: A41.9 - Sepsis, unspecified organism SNOMED: 90894901 (7) Hypothyroidism ICD Codes: E03.9 - Hypothyroidism, unspecified SNOMED: 62821851 Assessment/Plan continue Levemir 14 units bid continue Novolog sliding scale every 6 hours TSH is higher - increased Levothyroxine to 100 mcg daily repeat TSH in 2 weeks Subjective ROS Limited/Unobtainable: Yes Allergies: Coded Allergies: No Known Allergies (Unverified , 08/18/17) Subjective events noted - interval notes reviewed Objective Last 24 Hour Vital Signs Date Time Temp Pulse Resp B/P (MAP) Pulse Ox O2 Delivery O2 Flow Rate FiO2 09/09/17 04:07 97.8 70 20 120/64 98 Nasal Cannula 3.5 09/09/17 04:00 97.8 70 20 128/64 98 Nasal Cannula 3.5 09/09/17 03:58 69 09/09/17 02:30 97.7 09/09/17 00:00 97.7 68 20 147/68 97 Nasal Cannula 3.5 09/09/17 00:00 70 09/08/17 20:05 97.8 69 20 128/68 93 Nasal Cannula 3.5 09/08/17 20:00 67 09/08/17 19:53 Nasal Cannula 3.0 32 09/08/17 19:53 95 Nasal Cannula 3.0 32 09/08/17 16:00 97.7 66 23 124/63 95 Nasal Cannula 3.0 09/08/17 16:00 59 09/08/17 12:00 98.0 64 19 114/58 96 Nasal Cannula 3.0 09/08/17 12:00 61 09/08/17 08:49 139/64 09/08/17 08:49 64 139/64 09/08/17 08:00 97.8 64 18 139/64 97 Nasal Cannula 3.0 09/08/17 07:50 66 Laboratory Tests 09/08/17 10:10: White Blood Count 26.3*H, Red Blood Count 3.65L, Hemoglobin 11.6#L, Hematocrit 34.9#L, Mean Corpuscular Volume 96, Mean Corpuscular Hemoglobin 31.8H, Mean Corpuscular Hemoglobin Concent 33.2, Red Cell Distribution Width 15.3H, Platelet Count 261, Mean Platelet Volume 8.7, Neutrophils (%) (Auto) , Lymphocytes (%) (Auto) , Monocytes (%) (Auto) , Eosinophils (%) (Auto) , Basophils (%) (Auto) , Differential Total Cells Counted 100, Neutrophils % ( Manual) 90H, Lymphocytes % (Manual) 4L, Monocytes % (Manual) 6, Eosinophils % ( Manual) 0, Basophils % (Manual) 0, Band Neutrophils 0, Platelet Estimate Adequate, Platelet Morphology Normal, Anisocytosis 1+, Sodium Level 142, Potassium Level 4.5, Chloride Level 111H, Carbon Dioxide Level 22, Anion Gap 9, Blood Urea Nitrogen 13, Creatinine 1.1, Estimat Glomerular Filtration Rate 59.9 , Glucose Level 124H, Calcium Level 7.7L, Total Bilirubin 0.2, Aspartate Amino Transf (AST/SGOT) 23, Alanine Aminotransferase (ALT/SGPT) 20, Alkaline Phosphatase 108, Total Protein 5.8L, Albumin 0.9L, Globulin 4.9, Albumin/ Globulin Ratio 0.2L 09/08/17 20:55: Vancomycin Level Trough 22.4H Height (Feet): 5 Height (Inches): 3.00 Weight (Pounds): 118 General Appearance: no apparent distress Neck: normal alignment Cardiovascular: normal rate Respiratory/Chest: decreased breath sounds Abdomen: normal bowel sounds Objective Current Medications Medications (Trade) Dose Ordered Sig/Adonay Route PRN Reason Start Time Stop Time Status Last Admin Dose Admin Acetaminophen (Tylenol) 650 mg Q6H PRN ORAL Mild Pain/Temp > 100.5 08/21/17 20:00 09/18/17 07:59 09/04/17 10:04 Amlodipine Besylate (Norvasc) 10 mg DAILY NG 08/23/17 09:00 09/22/17 08:59 09/08/17 08:49 Ascorbic Acid (Vitamin C) 500 mg DAILY NG 08/23/17 09:00 09/22/17 08:59 09/08/17 08:51 Baclofen (Lioresal) 10 mg THREE TIMES A DAY NG 08/23/17 09:00 09/22/17 08:59 09/08/17 17:44 Citalopram Hydrobromide (celeXA) 20 mg DAILY GT 08/27/17 09:00 09/18/17 08:59 09/08/17 08:49 Clonidine HCl (Catapres) 0.1 mg Q6H PRN NG SBP > 160mmHg 08/23/17 08:30 09/22/17 08:29 Dextrose (Dextrose 50%) STAT PRN IV Hypoglycemia 08/21/17 20:00 09/20/17 19:59 09/05/17 18:34 Dextrose/Sodium Chloride 1,000 ml @ 100 mls/hr Q10H IV 09/07/17 11:00 10/07/17 10:59 09/09/17 04:27 Insulin Aspart (NovoLOG) EVERY 6 HOURS SUBQ 09/04/17 06:00 09/19/17 08:59 09/09/17 05:36 Insulin Detemir (Levemir) 14 units EVERY 12 HOURS SUBQ 09/06/17 21:00 10/06/17 20:59 09/08/17 20:36 Iron Sucrose 100 mg/Sodium Chloride 60 ml @ 240 mls/hr BEDTIME IV 09/07/17 21:00 09/11/17 21:14 09/08/17 20:35 Lansoprazole (Prevacid) 30 mg DAILY NG 08/24/17 09:00 09/23/17 08:59 09/08/17 08:49 Levothyroxine Sodium (Synthroid) 75 mcg ACBREAKFAST NG 08/24/17 06:30 09/23/17 06:29 09/09/17 06:38 Losartan Potassium (Cozaar) 50 mg DAILY NG 08/23/17 09:00 09/22/17 08:59 09/08/17 08:49 Meropenem 1 gm/ Sodium Chloride 110 ml @ 220 mls/hr Q12HR@0100,1300 IVPB 09/09/17 01:00 09/14/17 00:59 09/09/17 00:37 Metronidazole 100 ml @ 100 mls/hr Q8HR@0500,1300,2100 IVPB 09/07/17 15:00 09/14/17 14:59 09/09/17 04:26 Micafungin Sodium 100 mg/Sodium Chloride 100 ml @ 100 mls/hr Q24H IVPB 09/07/17 14:00 09/14/17 13:59 09/08/17 14:36 Multivitamins (Multivitamins) 1 tab DAILY ORAL 08/22/17 09:00 09/18/17 08:59 09/08/17 08:50 Ondansetron HCl (Zofran) 4 mg Q6H PRN NG Nausea & Vomiting 08/26/17 15:30 09/18/17 07:59 Oxycodone/ Acetaminophen (Percocet 5-325) 1 tab EVERY 6 HOURS PRN ORAL Severe Pain (Pain Scale 7-10) 09/02/17 15:45 09/09/17 15:44 09/09/17 01:29 Potassium Chloride (KCl 10% 40mEq Oral solution) 40 meq TWICE A DAY NG 08/24/17 18:00 09/23/17 17:59 09/08/17 17:44 Quetiapine Fumarate (SEROquel) 12.5 mg Q12H PRN ORAL Agitation 08/30/17 11:45 09/29/17 11:44 09/07/17 09:29 Vancomycin HCl (Vanco rx to dose) 1 ea DAILY PRN MISC Per rx protocol 08/28/17 16:15 09/27/17 16:14 Vancomycin HCl (Vancomycin) 125 mg FOUR TIMES A DAY ORAL 09/07/17 14:00 09/14/17 13:59 09/08/17 20:35 Item Value Date Time Bedside Blood Glucose 130 mg/dl H 09/09/17 0600 Bedside Blood Glucose 111 mg/dl 09/09/17 0040 Bedside Blood Glucose 104 mg/dl 09/08/17 2036 Bedside Blood Glucose 92 mg/dl 09/08/17 1857 Bedside Blood Glucose 113 mg/dl 09/08/17 1233 01/19/92 0000 KAYLEE DARNELL Sep 09, 2017 07:01
--- NOTE | 2017-09-09 07:01 | General Progress Note ---
Assessment/Plan Problem List: (1) DKA (diabetic ketoacidoses) ICD Codes: E13.10 - Other specified diabetes mellitus with ketoacidosis without coma SNOMED: 94577583, 546191148 (2) Altered level of consciousness ICD Codes: R40.4 - Transient alteration of awareness SNOMED: 9606179 (3) Hyperkalemia ICD Codes: E87.5 - Hyperkalemia SNOMED: 90741687 (4) Rhabdomyolysis ICD Codes: M62.82 - Rhabdomyolysis SNOMED: 228036927, 266333812 (5) Diabetes mellitus out of control ICD Codes: E11.65 - Type 2 diabetes mellitus with hyperglycemia SNOMED: 147524886, 96307497 (6) Sepsis ICD Codes: A41.9 - Sepsis, unspecified organism SNOMED: 98983932 (7) Hypothyroidism ICD Codes: E03.9 - Hypothyroidism, unspecified SNOMED: 06948874 Assessment/Plan continue Levemir 14 units bid continue Novolog sliding scale every 6 hours TSH is higher - increased Levothyroxine to 100 mcg daily repeat TSH in 2 weeks Subjective ROS Limited/Unobtainable: Yes Allergies: Coded Allergies: No Known Allergies (Unverified , 08/18/17) Subjective events noted - interval notes reviewed Objective Last 24 Hour Vital Signs Date Time Temp Pulse Resp B/P (MAP) Pulse Ox O2 Delivery O2 Flow Rate FiO2 09/09/17 04:07 97.8 70 20 120/64 98 Nasal Cannula 3.5 09/09/17 04:00 97.8 70 20 128/64 98 Nasal Cannula 3.5 09/09/17 03:58 69 09/09/17 02:30 97.7 09/09/17 00:00 97.7 68 20 147/68 97 Nasal Cannula 3.5 09/09/17 00:00 70 09/08/17 20:05 97.8 69 20 128/68 93 Nasal Cannula 3.5 09/08/17 20:00 67 09/08/17 19:53 Nasal Cannula 3.0 32 09/08/17 19:53 95 Nasal Cannula 3.0 32 09/08/17 16:00 97.7 66 23 124/63 95 Nasal Cannula 3.0 09/08/17 16:00 59 09/08/17 12:00 98.0 64 19 114/58 96 Nasal Cannula 3.0 09/08/17 12:00 61 09/08/17 08:49 139/64 09/08/17 08:49 64 139/64 09/08/17 08:00 97.8 64 18 139/64 97 Nasal Cannula 3.0 09/08/17 07:50 66 Laboratory Tests 09/08/17 10:10: White Blood Count 26.3*H, Red Blood Count 3.65L, Hemoglobin 11.6#L, Hematocrit 34.9#L, Mean Corpuscular Volume 96, Mean Corpuscular Hemoglobin 31.8H, Mean Corpuscular Hemoglobin Concent 33.2, Red Cell Distribution Width 15.3H, Platelet Count 261, Mean Platelet Volume 8.7, Neutrophils (%) (Auto) , Lymphocytes (%) (Auto) , Monocytes (%) (Auto) , Eosinophils (%) (Auto) , Basophils (%) (Auto) , Differential Total Cells Counted 100, Neutrophils % ( Manual) 90H, Lymphocytes % (Manual) 4L, Monocytes % (Manual) 6, Eosinophils % ( Manual) 0, Basophils % (Manual) 0, Band Neutrophils 0, Platelet Estimate Adequate, Platelet Morphology Normal, Anisocytosis 1+, Sodium Level 142, Potassium Level 4.5, Chloride Level 111H, Carbon Dioxide Level 22, Anion Gap 9, Blood Urea Nitrogen 13, Creatinine 1.1, Estimat Glomerular Filtration Rate 59.9 , Glucose Level 124H, Calcium Level 7.7L, Total Bilirubin 0.2, Aspartate Amino Transf (AST/SGOT) 23, Alanine Aminotransferase (ALT/SGPT) 20, Alkaline Phosphatase 108, Total Protein 5.8L, Albumin 0.9L, Globulin 4.9, Albumin/ Globulin Ratio 0.2L 09/08/17 20:55: Vancomycin Level Trough 22.4H Height (Feet): 5 Height (Inches): 3.00 Weight (Pounds): 118 General Appearance: no apparent distress Neck: normal alignment Cardiovascular: normal rate Respiratory/Chest: decreased breath sounds Abdomen: normal bowel sounds Objective Current Medications Medications (Trade) Dose Ordered Sig/Adonay Route PRN Reason Start Time Stop Time Status Last Admin Dose Admin Acetaminophen (Tylenol) 650 mg Q6H PRN ORAL Mild Pain/Temp > 100.5 08/21/17 20:00 09/18/17 07:59 09/04/17 10:04 Amlodipine Besylate (Norvasc) 10 mg DAILY NG 08/23/17 09:00 09/22/17 08:59 09/08/17 08:49 Ascorbic Acid (Vitamin C) 500 mg DAILY NG 08/23/17 09:00 09/22/17 08:59 09/08/17 08:51 Baclofen (Lioresal) 10 mg THREE TIMES A DAY NG 08/23/17 09:00 09/22/17 08:59 09/08/17 17:44 Citalopram Hydrobromide (celeXA) 20 mg DAILY GT 08/27/17 09:00 09/18/17 08:59 09/08/17 08:49 Clonidine HCl (Catapres) 0.1 mg Q6H PRN NG SBP > 160mmHg 08/23/17 08:30 09/22/17 08:29 Dextrose (Dextrose 50%) STAT PRN IV Hypoglycemia 08/21/17 20:00 09/20/17 19:59 09/05/17 18:34 Dextrose/Sodium Chloride 1,000 ml @ 100 mls/hr Q10H IV 09/07/17 11:00 10/07/17 10:59 09/09/17 04:27 Insulin Aspart (NovoLOG) EVERY 6 HOURS SUBQ 09/04/17 06:00 09/19/17 08:59 09/09/17 05:36 Insulin Detemir (Levemir) 14 units EVERY 12 HOURS SUBQ 09/06/17 21:00 10/06/17 20:59 09/08/17 20:36 Iron Sucrose 100 mg/Sodium Chloride 60 ml @ 240 mls/hr BEDTIME IV 09/07/17 21:00 09/11/17 21:14 09/08/17 20:35 Lansoprazole (Prevacid) 30 mg DAILY NG 08/24/17 09:00 09/23/17 08:59 09/08/17 08:49 Levothyroxine Sodium (Synthroid) 75 mcg ACBREAKFAST NG 08/24/17 06:30 09/23/17 06:29 09/09/17 06:38 Losartan Potassium (Cozaar) 50 mg DAILY NG 08/23/17 09:00 09/22/17 08:59 09/08/17 08:49 Meropenem 1 gm/ Sodium Chloride 110 ml @ 220 mls/hr Q12HR@0100,1300 IVPB 09/09/17 01:00 09/14/17 00:59 09/09/17 00:37 Metronidazole 100 ml @ 100 mls/hr Q8HR@0500,1300,2100 IVPB 09/07/17 15:00 09/14/17 14:59 09/09/17 04:26 Micafungin Sodium 100 mg/Sodium Chloride 100 ml @ 100 mls/hr Q24H IVPB 09/07/17 14:00 09/14/17 13:59 09/08/17 14:36 Multivitamins (Multivitamins) 1 tab DAILY ORAL 08/22/17 09:00 09/18/17 08:59 09/08/17 08:50 Ondansetron HCl (Zofran) 4 mg Q6H PRN NG Nausea & Vomiting 08/26/17 15:30 09/18/17 07:59 Oxycodone/ Acetaminophen (Percocet 5-325) 1 tab EVERY 6 HOURS PRN ORAL Severe Pain (Pain Scale 7-10) 09/02/17 15:45 09/09/17 15:44 09/09/17 01:29 Potassium Chloride (KCl 10% 40mEq Oral solution) 40 meq TWICE A DAY NG 08/24/17 18:00 09/23/17 17:59 09/08/17 17:44 Quetiapine Fumarate (SEROquel) 12.5 mg Q12H PRN ORAL Agitation 08/30/17 11:45 09/29/17 11:44 09/07/17 09:29 Vancomycin HCl (Vanco rx to dose) 1 ea DAILY PRN MISC Per rx protocol 08/28/17 16:15 09/27/17 16:14 Vancomycin HCl (Vancomycin) 125 mg FOUR TIMES A DAY ORAL 09/07/17 14:00 09/14/17 13:59 09/08/17 20:35 Item Value Date Time Bedside Blood Glucose 130 mg/dl H 09/09/17 0600 Bedside Blood Glucose 111 mg/dl 09/09/17 0040 Bedside Blood Glucose 104 mg/dl 09/08/17 2036 Bedside Blood Glucose 92 mg/dl 09/08/17 1857 Bedside Blood Glucose 113 mg/dl 09/08/17 1233 01/19/92 0000 KAYLEE DARNELL Sep 09, 2017 07:01
--- NOTE | 2017-09-09 07:38 | General Progress Note ---
Progress Note Progress Note pt seen for large sactral decubitus. as possible source of sepsis. On exam has a large decubitus about 5 x 8 cm adherent eschar. There is no fluctuance or erythema to suggest a subjacent abscess. At this point excising this eschar would only turn a clean dry wound into an open wet one that would be constantly contaminated by fecal inontinence, therefore wound not recommend eschar debridement at this point. will follow.. KEERTHI OLEA Sep 09, 2017 07:38
[2017-09-09] MEDS: KCl 10% 40mEq/30ml liquid NG SCH ×2 (09:23→17:38)
[2017-09-09] MEDS: Vancomycin oral 125mg/2.5ml ORAL SCH ×5 (09:24→21:42)
[2017-09-09] MEDS: Levemir Flexpen SUBQ SCH (09:26)
[2017-09-09] MEDS: Citalopram Hydrobromide 10mg Tab GT SCH (09:26)
[2017-09-09] MEDS: Ascorbic Acid 500mg tab NG SCH (09:26)
[2017-09-09] MEDS: Losartan 50mg tab NG SCH (09:27)
[2017-09-09] MEDS ORDERED: D5 1/2NS 1000ml IV ONE (09:31)
[2017-09-09] MEDS ORDERED: Tubing IV Secondary IV ONE (09:31)
--- NOTE | 2017-09-09 10:52 | Infectious Diseases Prog Note ---
Assessment/Plan Assessment/Plan ASSESSMENT AND PLAN: 1. sepsis, klebsiella uti, possible pna, worsening leukocytosis and hx fevers, ? c.diff., s/p g-tube, dwight glabrata fungal uti, ? fungemia, ct without abscess - check f/u cultures - change abx to meropenem, iv/po vanco, flagyl, micafungin - check labs, check chest x-ray 2. The patient has history of diabetes. 3. Hypertension. 4. Anemia, hypernatremia 5. Respiratory insufficiency. 6. Blood sugar and blood pressure control per primary. 7. Diabetic ketoacidosis. 8. History of anxiety. 9. Depression. 10. Dementia. 11. Chronic pain syndrome. 12. Aspiration risk. 13. Altered mental status. 14. Poor historian. 15. No known allergies. 16. Social history is negative. 17. Family history is noncontributory. 18. MAR was noted. 19. Case was discussed with RN. 20. Notes and records were noted. 21. Skin care protocol. 22. I have reviewed the wounds. I do not think this is her source of sepsis. Continue local wound care protocol. wc - likely colonizer. 23. Continue treatment per Dr. Winn. Subjective Constitutional: Denies: fever HEENT: Denies: congestion Respiratory: Denies: shortness of breath Cardiovascular: Denies: chest pain Gastrointestinal/Abdominal: Denies: nausea, vomiting, diarrhea Genitourinary: Reports: other - + f/u Neurologic: Denies: headache Psychiatric: Denies: depression Skin: Denies: rash Hematologic: Denies: bleeding Musculoskeletal: Reports: pain Allergies: Coded Allergies: No Known Allergies (Unverified , 08/18/17) Objective Vital Signs Last 24 Hour Vital Signs Date Time Temp Pulse Resp B/P (MAP) Pulse Ox O2 Delivery O2 Flow Rate FiO2 09/09/17 09:27 140/80 09/09/17 09:26 67 140/80 09/09/17 08:00 97.6 67 20 140/80 95 Nasal Cannula 3.0 09/09/17 07:03 96 Nasal Cannula 3.0 32 09/09/17 07:03 Nasal Cannula 3.0 32 09/09/17 04:07 97.8 70 20 120/64 98 Nasal Cannula 3.5 09/09/17 04:00 97.8 70 20 128/64 98 Nasal Cannula 3.5 09/09/17 03:58 69 09/09/17 02:30 97.7 09/09/17 00:00 97.7 68 20 147/68 97 Nasal Cannula 3.5 09/09/17 00:00 70 09/08/17 20:05 97.8 69 20 128/68 93 Nasal Cannula 3.5 09/08/17 20:00 67 09/08/17 19:53 Nasal Cannula 3.0 32 09/08/17 19:53 95 Nasal Cannula 3.0 32 09/08/17 16:00 97.7 66 23 124/63 95 Nasal Cannula 3.0 09/08/17 16:00 59 09/08/17 12:00 98.0 64 19 114/58 96 Nasal Cannula 3.0 09/08/17 12:00 61 Height (Feet): 5 Height (Inches): 3.00 Weight (Pounds): 118 General Appearance: no acute distress HEENT: normocephalic, atraumatic, anicteric, mucous membranes moist, EOMI, pharynx normal, supple, no JVD Respiratory/Chest: lungs clear, normal breath sounds, no respiratory distress, no accessory muscle use Cardiovascular: normal rate, regular rhythm, no gallop/murmur Abdomen: normal bowel sounds, soft, non tender, no organomegaly, non distended Genitourinary: other - + rowe - urine clearer Extremities: no cyanosis Skin: no rash 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 The pleural spaces are clear. The heart size is normal. There is a nasogastric tube again demonstrated. Left shoulder hardware is again demonstrated 09/01 - chest x-ray: Impression: Unchanged, over one day, findings as above. Findings: Interstitial opacities again appear prominent bilaterally. Heart size is stable. NG tube is noted and in good position. Impression: No radiographic change. Interstitial opacities nonspecific 09/04 - chest x-ray: Comparison: 09/01/2017 Findings: Bilateral diffuse interstitial and alveolar disease is unchanged. The heart size is normal. Pleural spaces are clear Impression: Unchanged, over 3 days, findings as above. CT abdomen and pelvis: Impression: Small amount of free air in the anterior epigastric region likely related to recent gastrostomy placement. Gastrostomy in good position. Basilar reticular lung disease, nonspecific. Left basilar pneumonia versus atelectasis. Please correlate clinically. Atherosclerotic disease Rowe catheter in good position. Breathing motion artifact. Anasarca. Trace ascites Microbiology Date/Time Source Procedure Growth Status 09/07/17 20:00 Blood Blood Culture - Preliminary NO GROWTH AFTER 24 HOURS Resulted 09/07/17 22:00 Sputum Induced Gram Stain - Final Resulted 09/07/17 22:00 Sputum Induced Sputum Culture Pending Resulted 08/30/17 18:30 Stool Clostridium difficile Toxin Assay - Final Complete 09/07/17 19:00 Indwelling Cath Urine Culture - Final NO GROWTH AFTER 48 HOURS Complete 08/19/17 07:00 Buttock Left Gram Stain - Final Complete 08/19/17 07:00 Wound Culture - Final Staphylococcus Sp Coag Neg Diphtheroids Complete Microbiology Date/Time Source Procedure Growth Status 09/07/17 20:00 Blood Blood Culture - Preliminary NO GROWTH AFTER 24 HOURS Resulted 09/07/17 19:45 Blood Blood Culture - Preliminary NO GROWTH AFTER 24 HOURS Resulted 09/07/17 22:00 Sputum Induced Gram Stain - Final Resulted 09/07/17 22:00 Sputum Induced Sputum Culture Pending Resulted 09/07/17 19:00 Indwelling Cath Urine Culture - Final NO GROWTH AFTER 48 HOURS Complete Labs Test 09/07/17 04:30 09/07/17 08:45 09/07/17 19:00 09/08/17 10:10 White Blood Count 32.3 K/UL (4.8-10.8) 32.4 K/UL (4.8-10.8) 26.3 K/UL (4.8-10.8) Red Blood Count 2.25 M/UL (4.20-5.40) 2.34 M/UL (4.20-5.40) 3.65 M/UL (4.20-5.40) Hemoglobin 7.1 G/DL (12.0-16.0) 7.2 G/DL (12.0-16.0) 11.6 G/DL (12.0-16.0) Hematocrit 21.9 % (37.0-47.0) 23.0 % (37.0-47.0) 34.9 % (37.0-47.0) Mean Corpuscular Volume 98 FL (80-99) 98 FL (80-99) 96 FL (80-99) Mean Corpuscular Hemoglobin 31.8 PG (27.0-31.0) 30.8 PG (27.0-31.0) 31.8 PG (27.0-31.0) Mean Corpuscular Hemoglobin Concent 32.6 G/DL (32.0-36.0) 31.4 G/DL (32.0-36.0) 33.2 G/DL (32.0-36.0) Red Cell Distribution Width 15.9 % (11.6-14.8) 16.2 % (11.6-14.8) 15.3 % (11.6-14.8) Platelet Count 254 K/UL (150-450) 220 K/UL (150-450) 261 K/UL (150-450) Mean Platelet Volume 8.8 FL (6.5-10.1) 7.6 FL (6.5-10.1) 8.7 FL (6.5-10.1) Neutrophils (%) (Auto) % (45.0-75.0) % (45.0-75.0) % (45.0-75.0) Lymphocytes (%) (Auto) % (20.0-45.0) % (20.0-45.0) % (20.0-45.0) Monocytes (%) (Auto) % (1.0-10.0) % (1.0-10.0) % (1.0-10.0) Eosinophils (%) (Auto) % (0.0-3.0) % (0.0-3.0) % (0.0-3.0) Basophils (%) (Auto) % (0.0-2.0) % (0.0-2.0) % (0.0-2.0) Differential Total Cells Counted 100 100 100 Neutrophils % (Manual) 93 % (45-75) 86 % (45-75) 90 % (45-75) Lymphocytes % (Manual) 3 % (20-45) 6 % (20-45) 4 % (20-45) Monocytes % (Manual) 2 % (1-10) 7 % (1-10) 6 % (1-10) Eosinophils % (Manual) 1 % (0-3) 0 % (0-3) 0 % (0-3) Basophils % (Manual) 0 % (0-2) 0 % (0-2) 0 % (0-2) Band Neutrophils 1 % (0-8) 1 % (0-8) 0 % (0-8) Platelet Estimate Adequate Adequate Adequate Platelet Morphology Normal Normal Normal Hypochromasia 1+ 1+ Anisocytosis 1+ 1+ 1+ Thyroid Stimulating Hormone (TSH) 22.183 uiU/mL (0.360-3.740) Iron Level 9 ug/dL (50-175) Total Iron Binding Capacity 90 ug/dL (250-450) Percent Iron Saturation 10 % (15-50) Unsaturated Iron Binding 81 ug/dL (112-346) Ferritin 668 NG/ML (8-388) Urine Color Yellow Urine Appearance Clear Urine pH 5 (4.5-8.0) Urine Specific [place] 1.020 (1.005-1.035) Urine Protein 1+ (NEGATIVE) Urine Glucose (UA) Negative (NEGATIVE) Urine Ketones Negative (NEGATIVE) Urine Occult Blood Negative (NEGATIVE) Urine Nitrite Negative (NEGATIVE) Urine Bilirubin Negative (NEGATIVE) Urine Urobilinogen Normal MG/DL (0.0-1.0) Urine Leukocyte Esterase 2+ (NEGATIVE) Urine RBC 0-2 /HPF (0 - 2) Urine WBC 2-4 /HPF (0 - 2) Urine Squamous Epithelial Cells Few /LPF (NONE/OCC) Urine Bacteria Moderate /HPF (NONE) Urine Yeast Few /HPF (NONE) Sodium Level 142 MMOL/L (136-145) Potassium Level 4.5 MMOL/L (3.5-5.1) Chloride Level 111 MMOL/L (98-107) Carbon Dioxide Level 22 MMOL/L (21-32) Anion Gap 9 mmol/L (5-15) Blood Urea Nitrogen 13 mg/dL (7-18) Creatinine 1.1 MG/DL (0.55-1.30) Estimat Glomerular Filtration Rate 59.9 mL/min (>60) Glucose Level 124 MG/DL (74-106) Calcium Level 7.7 MG/DL (8.5-10.1) Total Bilirubin 0.2 MG/DL (0.2-1.0) Aspartate Amino Transf (AST/SGOT) 23 U/L (15-37) Alanine Aminotransferase (ALT/SGPT) 20 U/L (12-78) Alkaline Phosphatase 108 U/L (46-116) Total Protein 5.8 G/DL (6.4-8.2) Albumin 0.9 G/DL (3.4-5.0) Globulin 4.9 g/dL Albumin/Globulin Ratio 0.2 (1.0-2.7) Test 09/08/17 20:55 09/09/17 10:00 Vancomycin Level Trough 22.4 ug/mL (5.0-12.0) Laboratory Tests Test 09/08/17 20:55 09/09/17 10:00 Vancomycin Level Trough 22.4 ug/mL (5.0-12.0) H Random Vancomycin Level Pending Current Medications Medications (Trade) Dose Ordered Sig/Adonay Route PRN Reason Start Time Stop Time Status Last Admin Dose Admin Acetaminophen (Tylenol) 650 mg Q6H PRN ORAL Mild Pain/Temp > 100.5 08/21/17 20:00 09/18/17 07:59 09/04/17 10:04 Amlodipine Besylate (Norvasc) 10 mg DAILY NG 08/23/17 09:00 09/22/17 08:59 09/09/17 09:26 Ascorbic Acid (Vitamin C) 500 mg DAILY NG 08/23/17 09:00 09/22/17 08:59 09/09/17 09:26 Baclofen (Lioresal) 10 mg THREE TIMES A DAY NG 08/23/17 09:00 09/22/17 08:59 09/09/17 09:26 Citalopram Hydrobromide (celeXA) 20 mg DAILY GT 08/27/17 09:00 09/18/17 08:59 09/09/17 09:26 Clonidine HCl (Catapres) 0.1 mg Q6H PRN NG SBP > 160mmHg 08/23/17 08:30 09/22/17 08:29 Dextrose (Dextrose 50%) STAT PRN IV Hypoglycemia 08/21/17 20:00 09/20/17 19:59 09/05/17 18:34 Dextrose/Sodium Chloride 1,000 ml @ 100 mls/hr Q10H IV 09/07/17 11:00 10/07/17 10:59 09/09/17 04:27 Insulin Aspart (NovoLOG) EVERY 6 HOURS SUBQ 09/04/17 06:00 09/19/17 08:59 09/09/17 05:36 Insulin Detemir (Levemir) 14 units EVERY 12 HOURS SUBQ 09/06/17 21:00 10/06/17 20:59 09/09/17 09:26 Iron Sucrose 100 mg/Sodium Chloride 60 ml @ 240 mls/hr BEDTIME IV 09/07/17 21:00 09/11/17 21:14 09/08/17 20:35 Lansoprazole (Prevacid) 30 mg DAILY NG 08/24/17 09:00 09/23/17 08:59 09/09/17 09:27 Levothyroxine Sodium (Synthroid) 100 mcg ACBREAKFAST NG 09/10/17 06:30 10/10/17 06:29 Losartan Potassium (Cozaar) 50 mg DAILY NG 08/23/17 09:00 09/22/17 08:59 09/09/17 09:27 Meropenem 1 gm/ Sodium Chloride 110 ml @ 220 mls/hr Q12HR@0100,1300 IVPB 09/09/17 01:00 09/14/17 00:59 09/09/17 00:37 Metronidazole 100 ml @ 100 mls/hr Q8HR@0500,1300,2100 IVPB 09/07/17 15:00 09/14/17 14:59 09/09/17 04:26 Micafungin Sodium 100 mg/Sodium Chloride 100 ml @ 100 mls/hr Q24H IVPB 09/07/17 14:00 09/14/17 13:59 09/08/17 14:36 Multivitamins (Multivitamins) 1 tab DAILY ORAL 08/22/17 09:00 09/18/17 08:59 09/09/17 09:26 Ondansetron HCl (Zofran) 4 mg Q6H PRN NG Nausea & Vomiting 08/26/17 15:30 09/18/17 07:59 Oxycodone/ Acetaminophen (Percocet 5-325) 1 tab EVERY 6 HOURS PRN ORAL Severe Pain (Pain Scale 7-10) 09/02/17 15:45 09/09/17 15:44 09/09/17 01:29 Potassium Chloride (KCl 10% 40mEq Oral solution) 40 meq TWICE A DAY NG 08/24/17 18:00 09/23/17 17:59 09/09/17 09:23 Quetiapine Fumarate (SEROquel) 12.5 mg Q12H PRN ORAL Agitation 08/30/17 11:45 09/29/17 11:44 09/07/17 09:29 Vancomycin HCl (Vanco rx to dose) 1 ea DAILY PRN MISC Per rx protocol 08/28/17 16:15 09/27/17 16:14 Vancomycin HCl (Vancomycin) 125 mg FOUR TIMES A DAY ORAL 09/07/17 14:00 09/14/17 13:59 09/09/17 09:24 YASIR RUEDA Sep 09, 2017 10:52
--- NOTE | 2017-09-09 11:07 | General Progress Note ---
Assessment/Plan Problem List: (1) Altered level of consciousness ICD Codes: R40.4 - Transient alteration of awareness SNOMED: 8189162 (2) Dysphagia ICD Codes: R13.10 - Dysphagia, unspecified SNOMED: 94139886, 116278052 (3) Rhabdomyolysis ICD Codes: M62.82 - Rhabdomyolysis SNOMED: 582749916, 106818631 (4) Diabetes mellitus out of control ICD Codes: E11.65 - Type 2 diabetes mellitus with hyperglycemia SNOMED: 775920932, 33998985 (5) Altered mental status, unspecified ICD Codes: R41.82 - Altered mental status, unspecified SNOMED: 158639353 (6) Hyperkalemia ICD Codes: E87.5 - Hyperkalemia SNOMED: 04976624 (7) DKA (diabetic ketoacidoses) ICD Codes: E13.10 - Other specified diabetes mellitus with ketoacidosis without coma SNOMED: 29446917, 083144547 (8) Sepsis ICD Codes: A41.9 - Sepsis, unspecified organism SNOMED: 57978125 (9) Hypothyroidism ICD Codes: E03.9 - Hypothyroidism, unspecified SNOMED: 01044407 (10) Hyperglycemia ICD Codes: R73.9 - Hyperglycemia, unspecified SNOMED: 61712869 (11) anemia (12) anemia (13) Leukocytosis ICD Codes: D72.829 - Elevated white blood cell count, unspecified SNOMED: 100684217, 270544131 (14) Decubitus ulcer of ankle, stage 4 ICD Codes: L89.504 - Pressure ulcer of unspecified ankle, stage 4 SNOMED: 219289222 (15) Sacral fracture ICD Codes: S32.10XA - Unspecified fracture of sacrum, initial encounter for closed fracture SNOMED: 841887322, 46112582 (16) Healthcare-associated pneumonia ICD Codes: J18.9 - Pneumonia, unspecified organism SNOMED: 225374398 Assessment/Plan dc plan in process, financial issue d/w CM, recultured, antibiotic per ID discuss, leukocytosis from decubiti likely, surgical consult,vs possible pneumonia no procedure now, transfused for anemia and copd Subjective ROS Limited/Unobtainable: Yes Allergies: Coded Allergies: No Known Allergies (Unverified , 08/18/17) Objective Last 24 Hour Vital Signs Date Time Temp Pulse Resp B/P (MAP) Pulse Ox O2 Delivery O2 Flow Rate FiO2 09/09/17 09:27 140/80 09/09/17 09:26 67 140/80 09/09/17 08:00 97.6 67 20 140/80 95 Nasal Cannula 3.0 09/09/17 07:03 96 Nasal Cannula 3.0 32 09/09/17 07:03 Nasal Cannula 3.0 32 09/09/17 04:07 97.8 70 20 120/64 98 Nasal Cannula 3.5 09/09/17 04:00 97.8 70 20 128/64 98 Nasal Cannula 3.5 09/09/17 03:58 69 09/09/17 02:30 97.7 09/09/17 00:00 97.7 68 20 147/68 97 Nasal Cannula 3.5 09/09/17 00:00 70 09/08/17 20:05 97.8 69 20 128/68 93 Nasal Cannula 3.5 09/08/17 20:00 67 09/08/17 19:53 Nasal Cannula 3.0 32 09/08/17 19:53 95 Nasal Cannula 3.0 32 09/08/17 16:00 97.7 66 23 124/63 95 Nasal Cannula 3.0 09/08/17 16:00 59 09/08/17 12:00 98.0 64 19 114/58 96 Nasal Cannula 3.0 09/08/17 12:00 61 Laboratory Tests 09/08/17 20:55: Vancomycin Level Trough 22.4H 09/09/17 10:00: Random Vancomycin Level [Pending] Height (Feet): 5 Height (Inches): 3.00 Weight (Pounds): 118 General Appearance: no apparent distress, lethargic, confused EENT: normal ENT inspection Neck: normal alignment, supple Cardiovascular: regular rhythm Respiratory/Chest: lungs clear Abdomen: non tender, soft Neurologic: motor weakness Skin: other - large decubiti KRISTIE BIRCH Sep 09, 2017 11:07
--- NOTE | 2017-09-09 11:07 | General Progress Note ---
Assessment/Plan Problem List: (1) Altered level of consciousness ICD Codes: R40.4 - Transient alteration of awareness SNOMED: 6438381 (2) Dysphagia ICD Codes: R13.10 - Dysphagia, unspecified SNOMED: 45630650, 873010077 (3) Rhabdomyolysis ICD Codes: M62.82 - Rhabdomyolysis SNOMED: 457159314, 484087058 (4) Diabetes mellitus out of control ICD Codes: E11.65 - Type 2 diabetes mellitus with hyperglycemia SNOMED: 443512853, 71448765 (5) Altered mental status, unspecified ICD Codes: R41.82 - Altered mental status, unspecified SNOMED: 024006646 (6) Hyperkalemia ICD Codes: E87.5 - Hyperkalemia SNOMED: 73176720 (7) DKA (diabetic ketoacidoses) ICD Codes: E13.10 - Other specified diabetes mellitus with ketoacidosis without coma SNOMED: 29524175, 244734770 (8) Sepsis ICD Codes: A41.9 - Sepsis, unspecified organism SNOMED: 61898848 (9) Hypothyroidism ICD Codes: E03.9 - Hypothyroidism, unspecified SNOMED: 02825787 (10) Hyperglycemia ICD Codes: R73.9 - Hyperglycemia, unspecified SNOMED: 82554205 (11) anemia (12) anemia (13) Leukocytosis ICD Codes: D72.829 - Elevated white blood cell count, unspecified SNOMED: 083681974, 622245933 (14) Decubitus ulcer of ankle, stage 4 ICD Codes: L89.504 - Pressure ulcer of unspecified ankle, stage 4 SNOMED: 057920884 (15) Sacral fracture ICD Codes: S32.10XA - Unspecified fracture of sacrum, initial encounter for closed fracture SNOMED: 589317336, 10462579 (16) Healthcare-associated pneumonia ICD Codes: J18.9 - Pneumonia, unspecified organism SNOMED: 797683492 Assessment/Plan dc plan in process, financial issue d/w CM, recultured, antibiotic per ID discuss, leukocytosis from decubiti likely, surgical consult,vs possible pneumonia no procedure now, transfused for anemia and copd Subjective ROS Limited/Unobtainable: Yes Allergies: Coded Allergies: No Known Allergies (Unverified , 08/18/17) Objective Last 24 Hour Vital Signs Date Time Temp Pulse Resp B/P (MAP) Pulse Ox O2 Delivery O2 Flow Rate FiO2 09/09/17 09:27 140/80 09/09/17 09:26 67 140/80 09/09/17 08:00 97.6 67 20 140/80 95 Nasal Cannula 3.0 09/09/17 07:03 96 Nasal Cannula 3.0 32 09/09/17 07:03 Nasal Cannula 3.0 32 09/09/17 04:07 97.8 70 20 120/64 98 Nasal Cannula 3.5 09/09/17 04:00 97.8 70 20 128/64 98 Nasal Cannula 3.5 09/09/17 03:58 69 09/09/17 02:30 97.7 09/09/17 00:00 97.7 68 20 147/68 97 Nasal Cannula 3.5 09/09/17 00:00 70 09/08/17 20:05 97.8 69 20 128/68 93 Nasal Cannula 3.5 09/08/17 20:00 67 09/08/17 19:53 Nasal Cannula 3.0 32 09/08/17 19:53 95 Nasal Cannula 3.0 32 09/08/17 16:00 97.7 66 23 124/63 95 Nasal Cannula 3.0 09/08/17 16:00 59 09/08/17 12:00 98.0 64 19 114/58 96 Nasal Cannula 3.0 09/08/17 12:00 61 Laboratory Tests 09/08/17 20:55: Vancomycin Level Trough 22.4H 09/09/17 10:00: Random Vancomycin Level [Pending] Height (Feet): 5 Height (Inches): 3.00 Weight (Pounds): 118 General Appearance: no apparent distress, lethargic, confused EENT: normal ENT inspection Neck: normal alignment, supple Cardiovascular: regular rhythm Respiratory/Chest: lungs clear Abdomen: non tender, soft Neurologic: motor weakness Skin: other - large decubiti KRISTIE BIRCH Sep 09, 2017 11:07
--- NOTE | 2017-09-09 11:07 | General Progress Note ---
Assessment/Plan Problem List: (1) Altered level of consciousness ICD Codes: R40.4 - Transient alteration of awareness SNOMED: 5996967 (2) Dysphagia ICD Codes: R13.10 - Dysphagia, unspecified SNOMED: 01267803, 675671657 (3) Rhabdomyolysis ICD Codes: M62.82 - Rhabdomyolysis SNOMED: 533369310, 592475432 (4) Diabetes mellitus out of control ICD Codes: E11.65 - Type 2 diabetes mellitus with hyperglycemia SNOMED: 419727382, 59824494 (5) Altered mental status, unspecified ICD Codes: R41.82 - Altered mental status, unspecified SNOMED: 186976014 (6) Hyperkalemia ICD Codes: E87.5 - Hyperkalemia SNOMED: 60347830 (7) DKA (diabetic ketoacidoses) ICD Codes: E13.10 - Other specified diabetes mellitus with ketoacidosis without coma SNOMED: 91652651, 527131964 (8) Sepsis ICD Codes: A41.9 - Sepsis, unspecified organism SNOMED: 73428210 (9) Hypothyroidism ICD Codes: E03.9 - Hypothyroidism, unspecified SNOMED: 52549508 (10) Hyperglycemia ICD Codes: R73.9 - Hyperglycemia, unspecified SNOMED: 08300728 (11) anemia (12) anemia (13) Leukocytosis ICD Codes: D72.829 - Elevated white blood cell count, unspecified SNOMED: 081567955, 357588600 (14) Decubitus ulcer of ankle, stage 4 ICD Codes: L89.504 - Pressure ulcer of unspecified ankle, stage 4 SNOMED: 981146492 (15) Sacral fracture ICD Codes: S32.10XA - Unspecified fracture of sacrum, initial encounter for closed fracture SNOMED: 851894877, 93785916 (16) Healthcare-associated pneumonia ICD Codes: J18.9 - Pneumonia, unspecified organism SNOMED: 742037155 Assessment/Plan dc plan in process, financial issue d/w CM, recultured, antibiotic per ID discuss, leukocytosis from decubiti likely, surgical consult,vs possible pneumonia no procedure now, transfused for anemia and copd Subjective ROS Limited/Unobtainable: Yes Allergies: Coded Allergies: No Known Allergies (Unverified , 08/18/17) Objective Last 24 Hour Vital Signs Date Time Temp Pulse Resp B/P (MAP) Pulse Ox O2 Delivery O2 Flow Rate FiO2 09/09/17 09:27 140/80 09/09/17 09:26 67 140/80 09/09/17 08:00 97.6 67 20 140/80 95 Nasal Cannula 3.0 09/09/17 07:03 96 Nasal Cannula 3.0 32 09/09/17 07:03 Nasal Cannula 3.0 32 09/09/17 04:07 97.8 70 20 120/64 98 Nasal Cannula 3.5 09/09/17 04:00 97.8 70 20 128/64 98 Nasal Cannula 3.5 09/09/17 03:58 69 09/09/17 02:30 97.7 09/09/17 00:00 97.7 68 20 147/68 97 Nasal Cannula 3.5 09/09/17 00:00 70 09/08/17 20:05 97.8 69 20 128/68 93 Nasal Cannula 3.5 09/08/17 20:00 67 09/08/17 19:53 Nasal Cannula 3.0 32 09/08/17 19:53 95 Nasal Cannula 3.0 32 09/08/17 16:00 97.7 66 23 124/63 95 Nasal Cannula 3.0 09/08/17 16:00 59 09/08/17 12:00 98.0 64 19 114/58 96 Nasal Cannula 3.0 09/08/17 12:00 61 Laboratory Tests 09/08/17 20:55: Vancomycin Level Trough 22.4H 09/09/17 10:00: Random Vancomycin Level [Pending] Height (Feet): 5 Height (Inches): 3.00 Weight (Pounds): 118 General Appearance: no apparent distress, lethargic, confused EENT: normal ENT inspection Neck: normal alignment, supple Cardiovascular: regular rhythm Respiratory/Chest: lungs clear Abdomen: non tender, soft Neurologic: motor weakness Skin: other - large decubiti KRISTIE BIRCH Sep 09, 2017 11:07
[2017-09-09] MEDS: Acetaminophen 500mg (ES) tab ORAL PRN (12:16)
[2017-09-09] MEDS ORDERED: Vancomycin 750mg/NS 250ml IVPB SCH (13:00)
[2017-09-09] MEDS: Meropenem 1 GM in NS 110 ML IVPB SCH (14:00)
--- NOTE | 2017-09-09 18:37 | General Progress Note ---
Assessment/Plan Assessment/Plan Assessment - Respiratory failure - leukocytosis - Anemia - tube feed intolerance - IDDM - s/p PEG Recommendations - Advance feeds - monitor residuals - GT care - Elevate HOB - abx Subjective Allergies: Coded Allergies: No Known Allergies (Unverified , 08/18/17) Subjective above noted s/p PEG - POD #5 back on TF tolerating well Objective Last 24 Hour Vital Signs Date Time Temp Pulse Resp B/P (MAP) Pulse Ox O2 Delivery O2 Flow Rate FiO2 09/09/17 16:00 97.8 77 18 137/74 Nasal Cannula 3.0 09/09/17 12:00 97.4 73 19 158/69 Nasal Cannula 3.0 09/09/17 09:27 140/80 09/09/17 09:26 67 140/80 09/09/17 08:00 74 09/09/17 08:00 97.6 67 20 140/80 95 Nasal Cannula 3.0 09/09/17 07:03 96 Nasal Cannula 3.0 32 09/09/17 07:03 Nasal Cannula 3.0 32 09/09/17 04:07 97.8 70 20 120/64 98 Nasal Cannula 3.5 09/09/17 04:00 97.8 70 20 128/64 98 Nasal Cannula 3.5 09/09/17 03:58 69 09/09/17 02:30 97.7 09/09/17 00:00 97.7 68 20 147/68 97 Nasal Cannula 3.5 09/09/17 00:00 70 09/08/17 20:05 97.8 69 20 128/68 93 Nasal Cannula 3.5 09/08/17 20:00 67 09/08/17 19:53 Nasal Cannula 3.0 32 09/08/17 19:53 95 Nasal Cannula 3.0 32 Intake and Output 09/09/17 09/10/17 19:00 07:00 Intake Total 1910 ml Output Total 800 ml Balance 1110 ml IV Total 1220 ml Tube Feeding 450 ml Other 240 ml Output Urine Total 800 ml # Voids 1 Laboratory Tests 09/08/17 20:55: Vancomycin Level Trough 22.4H 09/09/17 10:00: Random Vancomycin Level 18.3 Height (Feet): 5 Height (Inches): 3.00 Weight (Pounds): 118 Objective Thin AA woman NCAT Neck supple Chest: b/l coarse BS RRR soft mild distention and TTP, (+) GT no edema ERIKA ESPINOSA Sep 09, 2017 18:37
[2017-09-09] MEDS ORDERED: Levemir Flexpen SUBQ SCH (21:00)
[2017-09-09] MEDS: Iron Sucrose 100 MG in NS 55 ML IV SCH (21:41)
--- NOTE | 2017-09-09 23:02 | General Progress Note ---
Assessment/Plan Status: stable Assessment/Plan agitated at times much improved Subjective Allergies: Coded Allergies: No Known Allergies (Unverified , 08/18/17) Subjective calm no agitation Objective Last 24 Hour Vital Signs Date Time Temp Pulse Resp B/P (MAP) Pulse Ox O2 Delivery O2 Flow Rate FiO2 09/09/17 20:00 97.7 90 20 120/64 97 Nasal Cannula 3.0 09/09/17 16:00 97.8 77 18 137/74 Nasal Cannula 3.0 09/09/17 12:00 97.4 73 19 158/69 Nasal Cannula 3.0 09/09/17 09:27 140/80 09/09/17 09:26 67 140/80 09/09/17 08:00 74 09/09/17 08:00 97.6 67 20 140/80 95 Nasal Cannula 3.0 09/09/17 07:03 96 Nasal Cannula 3.0 32 09/09/17 07:03 Nasal Cannula 3.0 32 09/09/17 04:07 97.8 70 20 120/64 98 Nasal Cannula 3.5 09/09/17 04:00 97.8 70 20 128/64 98 Nasal Cannula 3.5 09/09/17 03:58 69 09/09/17 02:30 97.7 09/09/17 00:00 97.7 68 20 147/68 97 Nasal Cannula 3.5 09/09/17 00:00 70 Intake and Output 09/09/17 09/10/17 19:00 07:00 Intake Total 2210 ml Output Total 800 ml Balance 1410 ml IV Total 1420 ml Tube Feeding 550 ml Other 240 ml Output Urine Total 800 ml # Voids 1 Laboratory Tests 09/09/17 10:00: Random Vancomycin Level 18.3 Height (Feet): 5 Height (Inches): 3.00 Weight (Pounds): 118 General Appearance: no apparent distress, alert, overweight Neurologic: alert, oriented x 3, responsive, depressed affect Audi Bonilla M.D. Sep 09, 2017 23:02
[2017-09-10] VITALS (8 sets, daily range): BP systolic 120–143; BP diastolic 58–79
[2017-09-10] MEDS: Meropenem 1 GM in NS 110 ML IVPB SCH ×2 (01:17→13:33)
[2017-09-10] MEDS: D5 1/2NS 1,000 ML IV SCH ×2 (01:17→14:40)
[2017-09-10] MEDS: oxyCODONE HCL/Acetaminophen 5/325mg ORAL PRN ×2 (05:27→15:46)
[2017-09-10] MEDS: NovoLOG Insulin Flexpen SUBQ SCH ×4 (06:00→18:55)
--- NOTE | 2017-09-10 07:38 | General Progress Note ---
Progress Note Progress Note patient with leukocytosis of unknown cause. We were asked to evaluate sacral decubitus as possible source. on exam has adherent full thickness eschar but no signs of erythema, fluctuance drainage, or signs of infectiion. As previously noted excision would convert a clean, dry wound to an open one that would be constantly be contaminated by fecal incontinence and would therefore not benfit the patient at this point. will follow. KEERTHI OLEA Sep 10, 2017 07:38
[2017-09-10 08:21] LABS: HEMATOCRIT 33.8 % (37.0-47.0); HEMOGLOBIN 11.5 G/DL (12.0-16.0); MEAN CORPUSCULAR VOLUME 96 FL (80-99); PLATELET COUNT 298 K/UL (150-450); RED BLOOD COUNT 3.54 M/UL (4.20-5.40); RED CELL DISTRIBUTION WIDTH 15.4 % (11.6-14.8)
[2017-09-10 08:26] LABS: WHITE BLOOD COUNT 26.5 K/UL (4.8-10.8)
[2017-09-10] MEDS ORDERED: D5 1/2NS 1000ml IV ONE (08:54)
[2017-09-10] MEDS ORDERED: Tubing IV Secondary IV ONE (08:54)
[2017-09-10] MEDS: Citalopram Hydrobromide 10mg Tab GT SCH (09:12)
[2017-09-10] MEDS: Metoclopramide 10mg/2ml Inj IVP SCH ×3 (09:12→22:55)
[2017-09-10] MEDS: KCl 10% 40mEq/30ml liquid NG SCH (09:13)
[2017-09-10] MEDS: Losartan 50mg tab NG SCH (09:13)
[2017-09-10] MEDS: Ascorbic Acid 500mg tab NG SCH (09:14)
[2017-09-10] MEDS: Vancomycin oral 125mg/2.5ml ORAL SCH ×4 (09:15→21:13)
--- NOTE | 2017-09-10 10:04 | General Progress Note ---
Assessment/Plan Problem List: (1) Altered level of consciousness ICD Codes: R40.4 - Transient alteration of awareness SNOMED: 3530053 (2) Dysphagia ICD Codes: R13.10 - Dysphagia, unspecified SNOMED: 35055144, 638179317 (3) Rhabdomyolysis ICD Codes: M62.82 - Rhabdomyolysis SNOMED: 762257249, 985641314 (4) Diabetes mellitus out of control ICD Codes: E11.65 - Type 2 diabetes mellitus with hyperglycemia SNOMED: 111038068, 69911338 (5) Altered mental status, unspecified ICD Codes: R41.82 - Altered mental status, unspecified SNOMED: 457696734 (6) Hyperkalemia ICD Codes: E87.5 - Hyperkalemia SNOMED: 15895498 (7) DKA (diabetic ketoacidoses) ICD Codes: E13.10 - Other specified diabetes mellitus with ketoacidosis without coma SNOMED: 68712232, 878226705 (8) Sepsis ICD Codes: A41.9 - Sepsis, unspecified organism SNOMED: 76026011 (9) Hypothyroidism ICD Codes: E03.9 - Hypothyroidism, unspecified SNOMED: 47086134 (10) Hyperglycemia ICD Codes: R73.9 - Hyperglycemia, unspecified SNOMED: 39781783 (11) anemia (12) anemia (13) Leukocytosis ICD Codes: D72.829 - Elevated white blood cell count, unspecified SNOMED: 153851314, 085299261 (14) Decubitus ulcer of ankle, stage 4 ICD Codes: L89.504 - Pressure ulcer of unspecified ankle, stage 4 SNOMED: 150333399 (15) Sacral fracture ICD Codes: S32.10XA - Unspecified fracture of sacrum, initial encounter for closed fracture SNOMED: 498137389, 89294473 (16) Healthcare-associated pneumonia ICD Codes: J18.9 - Pneumonia, unspecified organism SNOMED: 742454604 (17) CVA (cerebral vascular accident) ICD Codes: I63.9 - Cerebral infarction, unspecified SNOMED: 700574102 Assessment/Plan dc plan in process, financial issue d/w CM, recultured, antibiotic per ID discuss, leukocytosis from decubiti likely, surgical consult,vs possible pneumonia no procedure now, transfused for anemia and copd, high gastric residual possible impaction or ileus, trial of laxatives, adjust insulin Subjective ROS Limited/Unobtainable: Yes Allergies: Coded Allergies: No Known Allergies (Unverified , 08/18/17) Subjective confused Objective Last 24 Hour Vital Signs Date Time Temp Pulse Resp B/P (MAP) Pulse Ox O2 Delivery O2 Flow Rate FiO2 09/10/17 09:14 67 128/58 09/10/17 09:13 128/58 09/10/17 08:58 67 128/58 09/10/17 08:05 96.8 73 18 143/75 99 Nasal Cannula 2.0 09/10/17 06:26 97.2 09/10/17 04:00 97.2 75 18 143/78 98 Nasal Cannula 3.0 09/10/17 00:00 97.2 73 18 122/79 96 Nasal Cannula 3.0 09/09/17 20:00 97.7 90 20 120/64 97 Nasal Cannula 3.0 09/09/17 16:00 97.8 77 18 137/74 Nasal Cannula 3.0 09/09/17 12:00 97.4 73 19 158/69 Nasal Cannula 3.0 Laboratory Tests 09/10/17 07:55: White Blood Count 26.5*H, Red Blood Count 3.54L, Hemoglobin 11.5L, Hematocrit 33.8L, Mean Corpuscular Volume 96, Mean Corpuscular Hemoglobin 32.5H, Mean Corpuscular Hemoglobin Concent 34.0, Red Cell Distribution Width 15.4H, Platelet Count 298, Mean Platelet Volume 7.5, Neutrophils (%) (Auto) , Lymphocytes (%) (Auto) , Monocytes (%) (Auto) , Eosinophils (%) (Auto) , Basophils (%) (Auto) , Neutrophils % (Manual) [Pending], Lymphocytes % (Manual) [Pending], Platelet Estimate [Pending], Platelet Morphology [Pending] Height (Feet): 5 Height (Inches): 3.00 Weight (Pounds): 120 General Appearance: confused EENT: normal ENT inspection Neck: normal alignment Cardiovascular: normal rate, regular rhythm Respiratory/Chest: lungs clear Abdomen: distended, other - tympanitic Edema: mild edema Neurologic: motor weakness, disoriented Skin: other - decubiti KRISTIE BIRCH Sep 10, 2017 10:04
--- NOTE | 2017-09-10 10:04 | General Progress Note ---
Assessment/Plan Problem List: (1) Altered level of consciousness ICD Codes: R40.4 - Transient alteration of awareness SNOMED: 1221186 (2) Dysphagia ICD Codes: R13.10 - Dysphagia, unspecified SNOMED: 41540129, 298555753 (3) Rhabdomyolysis ICD Codes: M62.82 - Rhabdomyolysis SNOMED: 976969505, 493314028 (4) Diabetes mellitus out of control ICD Codes: E11.65 - Type 2 diabetes mellitus with hyperglycemia SNOMED: 578221253, 63641122 (5) Altered mental status, unspecified ICD Codes: R41.82 - Altered mental status, unspecified SNOMED: 276334284 (6) Hyperkalemia ICD Codes: E87.5 - Hyperkalemia SNOMED: 45609402 (7) DKA (diabetic ketoacidoses) ICD Codes: E13.10 - Other specified diabetes mellitus with ketoacidosis without coma SNOMED: 18331490, 135159800 (8) Sepsis ICD Codes: A41.9 - Sepsis, unspecified organism SNOMED: 29568200 (9) Hypothyroidism ICD Codes: E03.9 - Hypothyroidism, unspecified SNOMED: 03447766 (10) Hyperglycemia ICD Codes: R73.9 - Hyperglycemia, unspecified SNOMED: 38477183 (11) anemia (12) anemia (13) Leukocytosis ICD Codes: D72.829 - Elevated white blood cell count, unspecified SNOMED: 971732061, 766872913 (14) Decubitus ulcer of ankle, stage 4 ICD Codes: L89.504 - Pressure ulcer of unspecified ankle, stage 4 SNOMED: 165861798 (15) Sacral fracture ICD Codes: S32.10XA - Unspecified fracture of sacrum, initial encounter for closed fracture SNOMED: 718880846, 42172365 (16) Healthcare-associated pneumonia ICD Codes: J18.9 - Pneumonia, unspecified organism SNOMED: 862385847 (17) CVA (cerebral vascular accident) ICD Codes: I63.9 - Cerebral infarction, unspecified SNOMED: 850465102 Assessment/Plan dc plan in process, financial issue d/w CM, recultured, antibiotic per ID discuss, leukocytosis from decubiti likely, surgical consult,vs possible pneumonia no procedure now, transfused for anemia and copd, high gastric residual possible impaction or ileus, trial of laxatives, adjust insulin Subjective ROS Limited/Unobtainable: Yes Allergies: Coded Allergies: No Known Allergies (Unverified , 08/18/17) Subjective confused Objective Last 24 Hour Vital Signs Date Time Temp Pulse Resp B/P (MAP) Pulse Ox O2 Delivery O2 Flow Rate FiO2 09/10/17 09:14 67 128/58 09/10/17 09:13 128/58 09/10/17 08:58 67 128/58 09/10/17 08:05 96.8 73 18 143/75 99 Nasal Cannula 2.0 09/10/17 06:26 97.2 09/10/17 04:00 97.2 75 18 143/78 98 Nasal Cannula 3.0 09/10/17 00:00 97.2 73 18 122/79 96 Nasal Cannula 3.0 09/09/17 20:00 97.7 90 20 120/64 97 Nasal Cannula 3.0 09/09/17 16:00 97.8 77 18 137/74 Nasal Cannula 3.0 09/09/17 12:00 97.4 73 19 158/69 Nasal Cannula 3.0 Laboratory Tests 09/10/17 07:55: White Blood Count 26.5*H, Red Blood Count 3.54L, Hemoglobin 11.5L, Hematocrit 33.8L, Mean Corpuscular Volume 96, Mean Corpuscular Hemoglobin 32.5H, Mean Corpuscular Hemoglobin Concent 34.0, Red Cell Distribution Width 15.4H, Platelet Count 298, Mean Platelet Volume 7.5, Neutrophils (%) (Auto) , Lymphocytes (%) (Auto) , Monocytes (%) (Auto) , Eosinophils (%) (Auto) , Basophils (%) (Auto) , Neutrophils % (Manual) [Pending], Lymphocytes % (Manual) [Pending], Platelet Estimate [Pending], Platelet Morphology [Pending] Height (Feet): 5 Height (Inches): 3.00 Weight (Pounds): 120 General Appearance: confused EENT: normal ENT inspection Neck: normal alignment Cardiovascular: normal rate, regular rhythm Respiratory/Chest: lungs clear Abdomen: distended, other - tympanitic Edema: mild edema Neurologic: motor weakness, disoriented Skin: other - decubiti KRISTIE BIRCH Sep 10, 2017 10:04
--- NOTE | 2017-09-10 10:04 | General Progress Note ---
Assessment/Plan Problem List: (1) Altered level of consciousness ICD Codes: R40.4 - Transient alteration of awareness SNOMED: 0912994 (2) Dysphagia ICD Codes: R13.10 - Dysphagia, unspecified SNOMED: 99582773, 851393644 (3) Rhabdomyolysis ICD Codes: M62.82 - Rhabdomyolysis SNOMED: 142593931, 039167417 (4) Diabetes mellitus out of control ICD Codes: E11.65 - Type 2 diabetes mellitus with hyperglycemia SNOMED: 913920290, 89978261 (5) Altered mental status, unspecified ICD Codes: R41.82 - Altered mental status, unspecified SNOMED: 989551766 (6) Hyperkalemia ICD Codes: E87.5 - Hyperkalemia SNOMED: 08822652 (7) DKA (diabetic ketoacidoses) ICD Codes: E13.10 - Other specified diabetes mellitus with ketoacidosis without coma SNOMED: 46419890, 718371307 (8) Sepsis ICD Codes: A41.9 - Sepsis, unspecified organism SNOMED: 60388791 (9) Hypothyroidism ICD Codes: E03.9 - Hypothyroidism, unspecified SNOMED: 20402289 (10) Hyperglycemia ICD Codes: R73.9 - Hyperglycemia, unspecified SNOMED: 90063510 (11) anemia (12) anemia (13) Leukocytosis ICD Codes: D72.829 - Elevated white blood cell count, unspecified SNOMED: 196776774, 402098772 (14) Decubitus ulcer of ankle, stage 4 ICD Codes: L89.504 - Pressure ulcer of unspecified ankle, stage 4 SNOMED: 841197514 (15) Sacral fracture ICD Codes: S32.10XA - Unspecified fracture of sacrum, initial encounter for closed fracture SNOMED: 791026546, 80649184 (16) Healthcare-associated pneumonia ICD Codes: J18.9 - Pneumonia, unspecified organism SNOMED: 458134532 (17) CVA (cerebral vascular accident) ICD Codes: I63.9 - Cerebral infarction, unspecified SNOMED: 263123731 Assessment/Plan dc plan in process, financial issue d/w CM, recultured, antibiotic per ID discuss, leukocytosis from decubiti likely, surgical consult,vs possible pneumonia no procedure now, transfused for anemia and copd, high gastric residual possible impaction or ileus, trial of laxatives, adjust insulin Subjective ROS Limited/Unobtainable: Yes Allergies: Coded Allergies: No Known Allergies (Unverified , 08/18/17) Subjective confused Objective Last 24 Hour Vital Signs Date Time Temp Pulse Resp B/P (MAP) Pulse Ox O2 Delivery O2 Flow Rate FiO2 09/10/17 09:14 67 128/58 09/10/17 09:13 128/58 09/10/17 08:58 67 128/58 09/10/17 08:05 96.8 73 18 143/75 99 Nasal Cannula 2.0 09/10/17 06:26 97.2 09/10/17 04:00 97.2 75 18 143/78 98 Nasal Cannula 3.0 09/10/17 00:00 97.2 73 18 122/79 96 Nasal Cannula 3.0 09/09/17 20:00 97.7 90 20 120/64 97 Nasal Cannula 3.0 09/09/17 16:00 97.8 77 18 137/74 Nasal Cannula 3.0 09/09/17 12:00 97.4 73 19 158/69 Nasal Cannula 3.0 Laboratory Tests 09/10/17 07:55: White Blood Count 26.5*H, Red Blood Count 3.54L, Hemoglobin 11.5L, Hematocrit 33.8L, Mean Corpuscular Volume 96, Mean Corpuscular Hemoglobin 32.5H, Mean Corpuscular Hemoglobin Concent 34.0, Red Cell Distribution Width 15.4H, Platelet Count 298, Mean Platelet Volume 7.5, Neutrophils (%) (Auto) , Lymphocytes (%) (Auto) , Monocytes (%) (Auto) , Eosinophils (%) (Auto) , Basophils (%) (Auto) , Neutrophils % (Manual) [Pending], Lymphocytes % (Manual) [Pending], Platelet Estimate [Pending], Platelet Morphology [Pending] Height (Feet): 5 Height (Inches): 3.00 Weight (Pounds): 120 General Appearance: confused EENT: normal ENT inspection Neck: normal alignment Cardiovascular: normal rate, regular rhythm Respiratory/Chest: lungs clear Abdomen: distended, other - tympanitic Edema: mild edema Neurologic: motor weakness, disoriented Skin: other - decubiti KRISTIE BIRCH Sep 10, 2017 10:04
[2017-09-10] MEDS: Lactulose 20gm/30ml UDC GT SCH ×3 (11:17→18:46)
--- NOTE | 2017-09-10 12:14 | Diagnostic Imaging Report ---
Indication: Abdominal pain and distention Comparison: 09/03/70 Single view of the abdomen obtained Findings: Bowel gas pattern is nonspecific. There is a gastrostomy projected over the left-sided abdomen. Esposito catheter is also noted. Bones are diffusely osteopenic. Aorta is moderately calcified. There is a right external artery and right femoral arterial stents noted. Surgical clips in the left groin noted. Impression: No acute findings appreciated.
[2017-09-10] MEDS: Vancomycin 750mg/NS 250ml 250 ML IVPB SCH (14:38)
--- NOTE | 2017-09-10 16:01 | General Progress Note ---
Assessment/Plan Problem List: (1) DKA (diabetic ketoacidoses) ICD Codes: E13.10 - Other specified diabetes mellitus with ketoacidosis without coma SNOMED: 83887788, 242517538 (2) Altered level of consciousness ICD Codes: R40.4 - Transient alteration of awareness SNOMED: 2356695 (3) Hyperkalemia ICD Codes: E87.5 - Hyperkalemia SNOMED: 73254645 (4) Rhabdomyolysis ICD Codes: M62.82 - Rhabdomyolysis SNOMED: 776087144, 652482235 (5) Diabetes mellitus out of control ICD Codes: E11.65 - Type 2 diabetes mellitus with hyperglycemia SNOMED: 273210653, 71328452 (6) Sepsis ICD Codes: A41.9 - Sepsis, unspecified organism SNOMED: 17017691 (7) Hypothyroidism ICD Codes: E03.9 - Hypothyroidism, unspecified SNOMED: 60745784 Assessment/Plan DC Levemir continue Novolog sliding scale every 6 hours Continue Levothyroxine to 100 mcg daily - increased from 75 mcg on 09/09/17 repeat TSH in 2 weeks Subjective ROS Limited/Unobtainable: Yes Allergies: Coded Allergies: No Known Allergies (Unverified , 08/18/17) Subjective events noted - interval notes reviewed Objective Last 24 Hour Vital Signs Date Time Temp Pulse Resp B/P (MAP) Pulse Ox O2 Delivery O2 Flow Rate FiO2 09/10/17 11:51 95.9 72 20 130/74 100 Nasal Cannula 2.0 09/10/17 09:14 67 128/58 09/10/17 09:13 128/58 09/10/17 08:58 67 128/58 09/10/17 08:05 96.8 73 18 143/75 99 Nasal Cannula 2.0 09/10/17 06:26 97.2 09/10/17 04:00 97.2 75 18 143/78 98 Nasal Cannula 3.0 09/10/17 00:00 97.2 73 18 122/79 96 Nasal Cannula 3.0 09/09/17 20:00 97.7 90 20 120/64 97 Nasal Cannula 3.0 09/09/17 16:00 97.8 77 18 137/74 Nasal Cannula 3.0 Laboratory Tests 09/10/17 07:55: White Blood Count 26.5*H, Red Blood Count 3.54L, Hemoglobin 11.5L, Hematocrit 33.8L, Mean Corpuscular Volume 96, Mean Corpuscular Hemoglobin 32.5H, Mean Corpuscular Hemoglobin Concent 34.0, Red Cell Distribution Width 15.4H, Platelet Count 298, Mean Platelet Volume 7.5, Neutrophils (%) (Auto) , Lymphocytes (%) (Auto) , Monocytes (%) (Auto) , Eosinophils (%) (Auto) , Basophils (%) (Auto) , Differential Total Cells Counted 100, Neutrophils % ( Manual) 81H, Lymphocytes % (Manual) 9L, Monocytes % (Manual) 9, Eosinophils % ( Manual) 1, Basophils % (Manual) 0, Band Neutrophils 0, Platelet Estimate Adequate, Platelet Morphology Normal Height (Feet): 5 Height (Inches): 3.00 Weight (Pounds): 120 General Appearance: moderate distress EENT: pale conjunctivae Neck: normal alignment Cardiovascular: normal rate Abdomen: normal bowel sounds Edema: 1+ Arm (L), 1+ Arm (R), 1+ Leg (L), 1+ Leg (R), 1+ Pedal (L), 1+ Pedal ( R), 1+ Generalized Objective Current Medications Medications (Trade) Dose Ordered Sig/Adonay Route PRN Reason Start Time Stop Time Status Last Admin Dose Admin Acetaminophen (Tylenol) 650 mg Q6H PRN ORAL Mild Pain/Temp > 100.5 09/09/17 19:00 09/18/17 18:59 Amlodipine Besylate (Norvasc) 10 mg DAILY NG 09/11/17 09:00 10/11/17 08:59 Ascorbic Acid (Vitamin C) 500 mg DAILY NG 09/10/17 09:00 09/22/17 08:59 09/10/17 09:14 Citalopram Hydrobromide (celeXA) 20 mg DAILY GT 09/10/17 09:00 09/18/17 08:59 09/10/17 09:12 Clonidine HCl (Catapres) 0.1 mg Q6H PRN NG SBP > 160mmHg 09/09/17 13:40 09/22/17 13:39 Dextrose (Dextrose 50%) STAT PRN IV Hypoglycemia 09/09/17 14:30 09/20/17 14:29 09/09/17 17:29 Dextrose/Sodium Chloride 1,000 ml @ 50 mls/hr Q20H IV 09/10/17 14:30 10/10/17 14:29 09/10/17 14:40 Insulin Aspart (NovoLOG) EVERY 6 HOURS SUBQ 09/09/17 18:00 09/19/17 08:59 09/10/17 13:32 Iron Sucrose 100 mg/Sodium Chloride 60 ml @ 240 mls/hr BEDTIME IV 09/09/17 21:00 09/11/17 21:01 09/09/17 21:41 Lactulose (Cephulac) 30 gm THREE TIMES A DAY GT 09/10/17 10:15 10/10/17 10:14 09/10/17 14:31 Lansoprazole (Prevacid) 30 mg ACBREAKFAST NG 09/10/17 06:30 10/10/17 06:29 09/10/17 05:28 Levothyroxine Sodium (Synthroid) 100 mcg ACBREAKFAST NG 09/10/17 06:30 10/10/17 06:29 09/10/17 05:27 Losartan Potassium (Cozaar) 50 mg DAILY NG 09/10/17 09:00 09/22/17 08:59 09/10/17 09:13 Meropenem 1 gm/ Sodium Chloride 110 ml @ 220 mls/hr Q12H IVPB 09/10/17 17:00 09/15/17 16:59 Metoclopramide HCl (Reglan) 10 mg Q8HR IVP 09/10/17 08:45 10/10/17 08:44 09/10/17 14:32 Metronidazole 100 ml @ 100 mls/hr Q8H IVPB 09/10/17 18:00 09/17/17 17:59 Micafungin Sodium 100 mg/Sodium Chloride 100 ml @ 100 mls/hr Q24H IVPB 09/10/17 15:00 09/17/17 14:59 Multivitamins (Multivitamins) 1 tab DAILY ORAL 09/10/17 09:00 09/18/17 08:59 09/10/17 09:14 Ondansetron HCl (Zofran) 4 mg Q6H PRN NG Nausea & Vomiting 09/09/17 15:30 09/18/17 07:59 Oxycodone/ Acetaminophen (Percocet 5-325) 1 tab Q6H PRN ORAL Severe Pain (Pain Scale 7-10) 09/09/17 13:30 09/16/17 13:29 09/10/17 15:46 Quetiapine Fumarate (SEROquel) 12.5 mg Q12H PRN ORAL Agitation 09/09/17 13:45 09/29/17 13:44 Vancomycin HCl (Vanco rx to dose) 1 ea DAILY PRN MISC Per rx protocol 09/10/17 09:00 09/27/17 16:14 Vancomycin HCl (Vancomycin) 125 mg FOUR TIMES A DAY ORAL 09/09/17 14:00 09/14/17 13:59 09/10/17 13:34 Vancomycin/Sodium Chloride 250 ml @ 166.667 mls/hr Q24H IVPB 09/10/17 14:00 09/14/17 13:59 09/10/17 14:38 Item Value Date Time Bedside Blood Glucose 181 mg/dl H 09/10/17 1332 Bedside Blood Glucose 158 mg/dl H 09/10/17 0600 Bedside Blood Glucose 60 mg/dl L 09/10/17 0048 KAYLEE DARNELL Sep 10, 2017 16:01
--- NOTE | 2017-09-10 16:01 | General Progress Note ---
Assessment/Plan Problem List: (1) DKA (diabetic ketoacidoses) ICD Codes: E13.10 - Other specified diabetes mellitus with ketoacidosis without coma SNOMED: 34691896, 583415311 (2) Altered level of consciousness ICD Codes: R40.4 - Transient alteration of awareness SNOMED: 0118080 (3) Hyperkalemia ICD Codes: E87.5 - Hyperkalemia SNOMED: 11144988 (4) Rhabdomyolysis ICD Codes: M62.82 - Rhabdomyolysis SNOMED: 205464165, 171379871 (5) Diabetes mellitus out of control ICD Codes: E11.65 - Type 2 diabetes mellitus with hyperglycemia SNOMED: 818602069, 64169707 (6) Sepsis ICD Codes: A41.9 - Sepsis, unspecified organism SNOMED: 72456301 (7) Hypothyroidism ICD Codes: E03.9 - Hypothyroidism, unspecified SNOMED: 54829755 Assessment/Plan DC Levemir continue Novolog sliding scale every 6 hours Continue Levothyroxine to 100 mcg daily - increased from 75 mcg on 09/09/17 repeat TSH in 2 weeks Subjective ROS Limited/Unobtainable: Yes Allergies: Coded Allergies: No Known Allergies (Unverified , 08/18/17) Subjective events noted - interval notes reviewed Objective Last 24 Hour Vital Signs Date Time Temp Pulse Resp B/P (MAP) Pulse Ox O2 Delivery O2 Flow Rate FiO2 09/10/17 11:51 95.9 72 20 130/74 100 Nasal Cannula 2.0 09/10/17 09:14 67 128/58 09/10/17 09:13 128/58 09/10/17 08:58 67 128/58 09/10/17 08:05 96.8 73 18 143/75 99 Nasal Cannula 2.0 09/10/17 06:26 97.2 09/10/17 04:00 97.2 75 18 143/78 98 Nasal Cannula 3.0 09/10/17 00:00 97.2 73 18 122/79 96 Nasal Cannula 3.0 09/09/17 20:00 97.7 90 20 120/64 97 Nasal Cannula 3.0 09/09/17 16:00 97.8 77 18 137/74 Nasal Cannula 3.0 Laboratory Tests 09/10/17 07:55: White Blood Count 26.5*H, Red Blood Count 3.54L, Hemoglobin 11.5L, Hematocrit 33.8L, Mean Corpuscular Volume 96, Mean Corpuscular Hemoglobin 32.5H, Mean Corpuscular Hemoglobin Concent 34.0, Red Cell Distribution Width 15.4H, Platelet Count 298, Mean Platelet Volume 7.5, Neutrophils (%) (Auto) , Lymphocytes (%) (Auto) , Monocytes (%) (Auto) , Eosinophils (%) (Auto) , Basophils (%) (Auto) , Differential Total Cells Counted 100, Neutrophils % ( Manual) 81H, Lymphocytes % (Manual) 9L, Monocytes % (Manual) 9, Eosinophils % ( Manual) 1, Basophils % (Manual) 0, Band Neutrophils 0, Platelet Estimate Adequate, Platelet Morphology Normal Height (Feet): 5 Height (Inches): 3.00 Weight (Pounds): 120 General Appearance: moderate distress EENT: pale conjunctivae Neck: normal alignment Cardiovascular: normal rate Abdomen: normal bowel sounds Edema: 1+ Arm (L), 1+ Arm (R), 1+ Leg (L), 1+ Leg (R), 1+ Pedal (L), 1+ Pedal ( R), 1+ Generalized Objective Current Medications Medications (Trade) Dose Ordered Sig/Adonay Route PRN Reason Start Time Stop Time Status Last Admin Dose Admin Acetaminophen (Tylenol) 650 mg Q6H PRN ORAL Mild Pain/Temp > 100.5 09/09/17 19:00 09/18/17 18:59 Amlodipine Besylate (Norvasc) 10 mg DAILY NG 09/11/17 09:00 10/11/17 08:59 Ascorbic Acid (Vitamin C) 500 mg DAILY NG 09/10/17 09:00 09/22/17 08:59 09/10/17 09:14 Citalopram Hydrobromide (celeXA) 20 mg DAILY GT 09/10/17 09:00 09/18/17 08:59 09/10/17 09:12 Clonidine HCl (Catapres) 0.1 mg Q6H PRN NG SBP > 160mmHg 09/09/17 13:40 09/22/17 13:39 Dextrose (Dextrose 50%) STAT PRN IV Hypoglycemia 09/09/17 14:30 09/20/17 14:29 09/09/17 17:29 Dextrose/Sodium Chloride 1,000 ml @ 50 mls/hr Q20H IV 09/10/17 14:30 10/10/17 14:29 09/10/17 14:40 Insulin Aspart (NovoLOG) EVERY 6 HOURS SUBQ 09/09/17 18:00 09/19/17 08:59 09/10/17 13:32 Iron Sucrose 100 mg/Sodium Chloride 60 ml @ 240 mls/hr BEDTIME IV 09/09/17 21:00 09/11/17 21:01 09/09/17 21:41 Lactulose (Cephulac) 30 gm THREE TIMES A DAY GT 09/10/17 10:15 10/10/17 10:14 09/10/17 14:31 Lansoprazole (Prevacid) 30 mg ACBREAKFAST NG 09/10/17 06:30 10/10/17 06:29 09/10/17 05:28 Levothyroxine Sodium (Synthroid) 100 mcg ACBREAKFAST NG 09/10/17 06:30 10/10/17 06:29 09/10/17 05:27 Losartan Potassium (Cozaar) 50 mg DAILY NG 09/10/17 09:00 09/22/17 08:59 09/10/17 09:13 Meropenem 1 gm/ Sodium Chloride 110 ml @ 220 mls/hr Q12H IVPB 09/10/17 17:00 09/15/17 16:59 Metoclopramide HCl (Reglan) 10 mg Q8HR IVP 09/10/17 08:45 10/10/17 08:44 09/10/17 14:32 Metronidazole 100 ml @ 100 mls/hr Q8H IVPB 09/10/17 18:00 09/17/17 17:59 Micafungin Sodium 100 mg/Sodium Chloride 100 ml @ 100 mls/hr Q24H IVPB 09/10/17 15:00 09/17/17 14:59 Multivitamins (Multivitamins) 1 tab DAILY ORAL 09/10/17 09:00 09/18/17 08:59 09/10/17 09:14 Ondansetron HCl (Zofran) 4 mg Q6H PRN NG Nausea & Vomiting 09/09/17 15:30 09/18/17 07:59 Oxycodone/ Acetaminophen (Percocet 5-325) 1 tab Q6H PRN ORAL Severe Pain (Pain Scale 7-10) 09/09/17 13:30 09/16/17 13:29 09/10/17 15:46 Quetiapine Fumarate (SEROquel) 12.5 mg Q12H PRN ORAL Agitation 09/09/17 13:45 09/29/17 13:44 Vancomycin HCl (Vanco rx to dose) 1 ea DAILY PRN MISC Per rx protocol 09/10/17 09:00 09/27/17 16:14 Vancomycin HCl (Vancomycin) 125 mg FOUR TIMES A DAY ORAL 09/09/17 14:00 09/14/17 13:59 09/10/17 13:34 Vancomycin/Sodium Chloride 250 ml @ 166.667 mls/hr Q24H IVPB 09/10/17 14:00 09/14/17 13:59 09/10/17 14:38 Item Value Date Time Bedside Blood Glucose 181 mg/dl H 09/10/17 1332 Bedside Blood Glucose 158 mg/dl H 09/10/17 0600 Bedside Blood Glucose 60 mg/dl L 09/10/17 0048 KAYLEE DARNELL Sep 10, 2017 16:01
--- NOTE | 2017-09-10 16:01 | General Progress Note ---
Assessment/Plan Problem List: (1) DKA (diabetic ketoacidoses) ICD Codes: E13.10 - Other specified diabetes mellitus with ketoacidosis without coma SNOMED: 49373177, 889327703 (2) Altered level of consciousness ICD Codes: R40.4 - Transient alteration of awareness SNOMED: 0639730 (3) Hyperkalemia ICD Codes: E87.5 - Hyperkalemia SNOMED: 67035694 (4) Rhabdomyolysis ICD Codes: M62.82 - Rhabdomyolysis SNOMED: 645370644, 428369588 (5) Diabetes mellitus out of control ICD Codes: E11.65 - Type 2 diabetes mellitus with hyperglycemia SNOMED: 921167703, 43721757 (6) Sepsis ICD Codes: A41.9 - Sepsis, unspecified organism SNOMED: 25136499 (7) Hypothyroidism ICD Codes: E03.9 - Hypothyroidism, unspecified SNOMED: 11466423 Assessment/Plan DC Levemir continue Novolog sliding scale every 6 hours Continue Levothyroxine to 100 mcg daily - increased from 75 mcg on 09/09/17 repeat TSH in 2 weeks Subjective ROS Limited/Unobtainable: Yes Allergies: Coded Allergies: No Known Allergies (Unverified , 08/18/17) Subjective events noted - interval notes reviewed Objective Last 24 Hour Vital Signs Date Time Temp Pulse Resp B/P (MAP) Pulse Ox O2 Delivery O2 Flow Rate FiO2 09/10/17 11:51 95.9 72 20 130/74 100 Nasal Cannula 2.0 09/10/17 09:14 67 128/58 09/10/17 09:13 128/58 09/10/17 08:58 67 128/58 09/10/17 08:05 96.8 73 18 143/75 99 Nasal Cannula 2.0 09/10/17 06:26 97.2 09/10/17 04:00 97.2 75 18 143/78 98 Nasal Cannula 3.0 09/10/17 00:00 97.2 73 18 122/79 96 Nasal Cannula 3.0 09/09/17 20:00 97.7 90 20 120/64 97 Nasal Cannula 3.0 09/09/17 16:00 97.8 77 18 137/74 Nasal Cannula 3.0 Laboratory Tests 09/10/17 07:55: White Blood Count 26.5*H, Red Blood Count 3.54L, Hemoglobin 11.5L, Hematocrit 33.8L, Mean Corpuscular Volume 96, Mean Corpuscular Hemoglobin 32.5H, Mean Corpuscular Hemoglobin Concent 34.0, Red Cell Distribution Width 15.4H, Platelet Count 298, Mean Platelet Volume 7.5, Neutrophils (%) (Auto) , Lymphocytes (%) (Auto) , Monocytes (%) (Auto) , Eosinophils (%) (Auto) , Basophils (%) (Auto) , Differential Total Cells Counted 100, Neutrophils % ( Manual) 81H, Lymphocytes % (Manual) 9L, Monocytes % (Manual) 9, Eosinophils % ( Manual) 1, Basophils % (Manual) 0, Band Neutrophils 0, Platelet Estimate Adequate, Platelet Morphology Normal Height (Feet): 5 Height (Inches): 3.00 Weight (Pounds): 120 General Appearance: moderate distress EENT: pale conjunctivae Neck: normal alignment Cardiovascular: normal rate Abdomen: normal bowel sounds Edema: 1+ Arm (L), 1+ Arm (R), 1+ Leg (L), 1+ Leg (R), 1+ Pedal (L), 1+ Pedal ( R), 1+ Generalized Objective Current Medications Medications (Trade) Dose Ordered Sig/Adonay Route PRN Reason Start Time Stop Time Status Last Admin Dose Admin Acetaminophen (Tylenol) 650 mg Q6H PRN ORAL Mild Pain/Temp > 100.5 09/09/17 19:00 09/18/17 18:59 Amlodipine Besylate (Norvasc) 10 mg DAILY NG 09/11/17 09:00 10/11/17 08:59 Ascorbic Acid (Vitamin C) 500 mg DAILY NG 09/10/17 09:00 09/22/17 08:59 09/10/17 09:14 Citalopram Hydrobromide (celeXA) 20 mg DAILY GT 09/10/17 09:00 09/18/17 08:59 09/10/17 09:12 Clonidine HCl (Catapres) 0.1 mg Q6H PRN NG SBP > 160mmHg 09/09/17 13:40 09/22/17 13:39 Dextrose (Dextrose 50%) STAT PRN IV Hypoglycemia 09/09/17 14:30 09/20/17 14:29 09/09/17 17:29 Dextrose/Sodium Chloride 1,000 ml @ 50 mls/hr Q20H IV 09/10/17 14:30 10/10/17 14:29 09/10/17 14:40 Insulin Aspart (NovoLOG) EVERY 6 HOURS SUBQ 09/09/17 18:00 09/19/17 08:59 09/10/17 13:32 Iron Sucrose 100 mg/Sodium Chloride 60 ml @ 240 mls/hr BEDTIME IV 09/09/17 21:00 09/11/17 21:01 09/09/17 21:41 Lactulose (Cephulac) 30 gm THREE TIMES A DAY GT 09/10/17 10:15 10/10/17 10:14 09/10/17 14:31 Lansoprazole (Prevacid) 30 mg ACBREAKFAST NG 09/10/17 06:30 10/10/17 06:29 09/10/17 05:28 Levothyroxine Sodium (Synthroid) 100 mcg ACBREAKFAST NG 09/10/17 06:30 10/10/17 06:29 09/10/17 05:27 Losartan Potassium (Cozaar) 50 mg DAILY NG 09/10/17 09:00 09/22/17 08:59 09/10/17 09:13 Meropenem 1 gm/ Sodium Chloride 110 ml @ 220 mls/hr Q12H IVPB 09/10/17 17:00 09/15/17 16:59 Metoclopramide HCl (Reglan) 10 mg Q8HR IVP 09/10/17 08:45 10/10/17 08:44 09/10/17 14:32 Metronidazole 100 ml @ 100 mls/hr Q8H IVPB 09/10/17 18:00 09/17/17 17:59 Micafungin Sodium 100 mg/Sodium Chloride 100 ml @ 100 mls/hr Q24H IVPB 09/10/17 15:00 09/17/17 14:59 Multivitamins (Multivitamins) 1 tab DAILY ORAL 09/10/17 09:00 09/18/17 08:59 09/10/17 09:14 Ondansetron HCl (Zofran) 4 mg Q6H PRN NG Nausea & Vomiting 09/09/17 15:30 09/18/17 07:59 Oxycodone/ Acetaminophen (Percocet 5-325) 1 tab Q6H PRN ORAL Severe Pain (Pain Scale 7-10) 09/09/17 13:30 09/16/17 13:29 09/10/17 15:46 Quetiapine Fumarate (SEROquel) 12.5 mg Q12H PRN ORAL Agitation 09/09/17 13:45 09/29/17 13:44 Vancomycin HCl (Vanco rx to dose) 1 ea DAILY PRN MISC Per rx protocol 09/10/17 09:00 09/27/17 16:14 Vancomycin HCl (Vancomycin) 125 mg FOUR TIMES A DAY ORAL 09/09/17 14:00 09/14/17 13:59 09/10/17 13:34 Vancomycin/Sodium Chloride 250 ml @ 166.667 mls/hr Q24H IVPB 09/10/17 14:00 09/14/17 13:59 09/10/17 14:38 Item Value Date Time Bedside Blood Glucose 181 mg/dl H 09/10/17 1332 Bedside Blood Glucose 158 mg/dl H 09/10/17 0600 Bedside Blood Glucose 60 mg/dl L 09/10/17 0048 KAYLEE DARNELL Sep 10, 2017 16:01
[2017-09-10] MEDS ORDERED: Meropenem 1 GM in NS 110 ML IVPB SCH (17:00)
--- NOTE | 2017-09-10 17:41 | Cardiology Report ---
APPROVED REPORT EKG Measurement Heart [id number] [place] 134P94 [id number] Sinus rhythm with occasional premature ventricular complexes Abnormal ECG
--- NOTE | 2017-09-10 17:41 | Cardiology Report ---
APPROVED REPORT EKG Measurement Heart [id number] [place] 134P94 [id number] Sinus rhythm with occasional premature ventricular complexes Abnormal ECG
--- NOTE | 2017-09-10 17:41 | Cardiology Report ---
APPROVED REPORT EKG Measurement Heart [id number] [place] 134P94 [id number] Sinus rhythm with occasional premature ventricular complexes Abnormal ECG
--- NOTE | 2017-09-10 17:48 | Cardiology Report ---
APPROVED REPORT EKG Measurement Heart [id number] MD 142P88 [id number] Normal sinus rhythm Possible Left atrial enlargement Septal infarct, age undetermined Abnormal ECG
--- NOTE | 2017-09-10 17:48 | Cardiology Report ---
APPROVED REPORT EKG Measurement Heart [id number] [place] 142P88 [id number] Normal sinus rhythm Possible Left atrial enlargement Septal infarct, age undetermined Abnormal ECG
--- NOTE | 2017-09-10 17:48 | Cardiology Report ---
APPROVED REPORT EKG Measurement Heart [id number] [place] 142P88 [id number] Normal sinus rhythm Possible Left atrial enlargement Septal infarct, age undetermined Abnormal ECG
--- NOTE | 2017-09-10 20:37 | General Progress Note ---
Assessment/Plan Assessment/Plan Assessment - Respiratory failure - leukocytosis - Anemia - tube feed intolerance - IDDM - s/p PEG Recommendations - Advance feeds - monitor residuals - GT care - Elevate HOB - abx Subjective Allergies: Coded Allergies: No Known Allergies (Unverified , 08/18/17) Subjective above noted s/p PEG - POD #6 large residual noted by RN today now on reglan lower rate TF started Objective Last 24 Hour Vital Signs Date Time Temp Pulse Resp B/P (MAP) Pulse Ox O2 Delivery O2 Flow Rate FiO2 09/10/17 20:08 Nasal Cannula 3.0 32 09/10/17 20:08 97 Nasal Cannula 3.0 32 09/10/17 19:51 97.7 77 18 123/62 97 Nasal Cannula 09/10/17 16:00 97.3 78 18 137/76 99 Nasal Cannula 2.0 09/10/17 11:51 95.9 72 20 130/74 100 Nasal Cannula 2.0 09/10/17 09:14 67 128/58 09/10/17 09:13 128/58 09/10/17 08:58 67 128/58 09/10/17 08:05 96.8 73 18 143/75 99 Nasal Cannula 2.0 09/10/17 06:26 97.2 09/10/17 04:00 97.2 75 18 143/78 98 Nasal Cannula 3.0 09/10/17 00:00 97.2 73 18 122/79 96 Nasal Cannula 3.0 Intake and Output 09/10/17 09/11/17 19:00 07:00 Intake Total 375 ml Output Total 400 ml Balance -25 ml Free Water 200 ml Tube Feeding 175 ml Output Urine Total 400 ml # Bowel Movements 3 Laboratory Tests 09/10/17 07:55: White Blood Count 26.5*H, Red Blood Count 3.54L, Hemoglobin 11.5L, Hematocrit 33.8L, Mean Corpuscular Volume 96, Mean Corpuscular Hemoglobin 32.5H, Mean Corpuscular Hemoglobin Concent 34.0, Red Cell Distribution Width 15.4H, Platelet Count 298, Mean Platelet Volume 7.5, Neutrophils (%) (Auto) , Lymphocytes (%) (Auto) , Monocytes (%) (Auto) , Eosinophils (%) (Auto) , Basophils (%) (Auto) , Differential Total Cells Counted 100, Neutrophils % ( Manual) 81H, Lymphocytes % (Manual) 9L, Monocytes % (Manual) 9, Eosinophils % ( Manual) 1, Basophils % (Manual) 0, Band Neutrophils 0, Platelet Estimate Adequate, Platelet Morphology Normal Height (Feet): 5 Height (Inches): 3.00 Weight (Pounds): 120 Objective Thin AA woman NCAT Neck supple Chest: b/l coarse BS RRR soft mild distention and TTP, (+) GT no edema ERIKA ESPINOSA Sep 10, 2017 20:37
[2017-09-10] MEDS: Iron Sucrose 100 MG in NS 55 ML IV SCH (21:13)
--- NOTE | 2017-09-10 23:52 | General Progress Note ---
Assessment/Plan Assessment/Plan agitated at times much improved Subjective Allergies: Coded Allergies: No Known Allergies (Unverified , 08/18/17) Subjective calm no agitation Objective Last 24 Hour Vital Signs Date Time Temp Pulse Resp B/P (MAP) Pulse Ox O2 Delivery O2 Flow Rate FiO2 09/10/17 23:37 97.7 111 18 120/66 97 Nasal Cannula 09/10/17 20:08 Nasal Cannula 3.0 32 09/10/17 20:08 97 Nasal Cannula 3.0 32 09/10/17 19:51 97.7 77 18 123/62 97 Nasal Cannula 09/10/17 16:00 97.3 78 18 137/76 99 Nasal Cannula 2.0 09/10/17 11:51 95.9 72 20 130/74 100 Nasal Cannula 2.0 09/10/17 09:14 67 128/58 09/10/17 09:13 128/58 09/10/17 08:58 67 128/58 09/10/17 08:05 96.8 73 18 143/75 99 Nasal Cannula 2.0 09/10/17 06:26 97.2 09/10/17 04:00 97.2 75 18 143/78 98 Nasal Cannula 3.0 09/10/17 00:00 97.2 73 18 122/79 96 Nasal Cannula 3.0 Intake and Output 09/10/17 09/11/17 19:00 07:00 Intake Total 600 ml Output Total 400 ml Balance 200 ml Free Water 200 ml IV Total 150 ml Tube Feeding 250 ml Output Urine Total 400 ml # Bowel Movements 3 Laboratory Tests 09/10/17 07:55: White Blood Count 26.5*H, Red Blood Count 3.54L, Hemoglobin 11.5L, Hematocrit 33.8L, Mean Corpuscular Volume 96, Mean Corpuscular Hemoglobin 32.5H, Mean Corpuscular Hemoglobin Concent 34.0, Red Cell Distribution Width 15.4H, Platelet Count 298, Mean Platelet Volume 7.5, Neutrophils (%) (Auto) , Lymphocytes (%) (Auto) , Monocytes (%) (Auto) , Eosinophils (%) (Auto) , Basophils (%) (Auto) , Differential Total Cells Counted 100, Neutrophils % ( Manual) 81H, Lymphocytes % (Manual) 9L, Monocytes % (Manual) 9, Eosinophils % ( Manual) 1, Basophils % (Manual) 0, Band Neutrophils 0, Platelet Estimate Adequate, Platelet Morphology Normal Height (Feet): 5 Height (Inches): 3.00 Weight (Pounds): 120 Audi Bonilla M.D. Sep 10, 2017 23:52
[2017-09-11] MEDS ORDERED: Meropenem 1 GM in NS 110 ML IVPB SCH (01:00)
[2017-09-11 03:34] VITALS: BP 119/65
[2017-09-11] MEDS: Metoclopramide 10mg/2ml Inj IVP SCH ×3 (05:54→22:19)
[2017-09-11] MEDS: oxyCODONE HCL/Acetaminophen 5/325mg ORAL PRN ×4 (05:54→22:31)
[2017-09-11] MEDS: NovoLOG Insulin Flexpen SUBQ SCH ×4 (05:55→17:48)
[2017-09-11 07:52] LABS: HEMATOCRIT 35.6 % (37.0-47.0); HEMOGLOBIN 11.5 G/DL (12.0-16.0); MEAN CORPUSCULAR VOLUME 97 FL (80-99); PLATELET COUNT 316 K/UL (150-450); RED BLOOD COUNT 3.67 M/UL (4.20-5.40); RED CELL DISTRIBUTION WIDTH 15.1 % (11.6-14.8)
[2017-09-11 08:00] VITALS: BP_SYST 116; BP_SYST 145; BP_DIAS 56; BP_DIAS 73
[2017-09-11 08:00] LABS: ANION GAP 6 mmol/L (5-15); BLOOD UREA NITROGEN 10 mg/dL (7-18); CALCIUM 7.8 MG/DL (8.5-10.1); CARBON DIOXIDE 21 MMOL/L (21-32); CHLORIDE 107 MMOL/L (98-107); POTASSIUM 5.1 MMOL/L (3.5-5.1); SODIUM 134 MMOL/L (136-145)
[2017-09-11 08:03] LABS: WHITE BLOOD COUNT 31.3 K/UL (4.8-10.8)
--- NOTE | 2017-09-11 08:24 | General Progress Note ---
Assessment/Plan Problem List: (1) DKA (diabetic ketoacidoses) ICD Codes: E13.10 - Other specified diabetes mellitus with ketoacidosis without coma SNOMED: 67021298, 879042256 (2) Altered level of consciousness ICD Codes: R40.4 - Transient alteration of awareness SNOMED: 7647668 (3) Hyperkalemia ICD Codes: E87.5 - Hyperkalemia SNOMED: 48706532 (4) Rhabdomyolysis ICD Codes: M62.82 - Rhabdomyolysis SNOMED: 131863681, 485413858 (5) Diabetes mellitus out of control ICD Codes: E11.65 - Type 2 diabetes mellitus with hyperglycemia SNOMED: 176193800, 98088392 (6) Sepsis ICD Codes: A41.9 - Sepsis, unspecified organism SNOMED: 14119280 (7) Hypothyroidism ICD Codes: E03.9 - Hypothyroidism, unspecified SNOMED: 58004637 Assessment/Plan BG elevated resume Levemir 8 units bid continue Novolog sliding scale every 6 hours Continue Levothyroxine to 100 mcg daily - increased from 75 mcg on 09/09/17 repeat TSH in 2 weeks Subjective ROS Limited/Unobtainable: Yes Allergies: Coded Allergies: No Known Allergies (Unverified , 08/18/17) Subjective events noted - interval notes reviewed Objective Last 24 Hour Vital Signs Date Time Temp Pulse Resp B/P (MAP) Pulse Ox O2 Delivery O2 Flow Rate FiO2 09/11/17 03:34 97.7 82 18 119/65 99 Nasal Cannula 09/10/17 23:37 97.7 111 18 120/66 97 Nasal Cannula 09/10/17 20:08 Nasal Cannula 3.0 32 09/10/17 20:08 97 Nasal Cannula 3.0 32 09/10/17 19:51 97.7 77 18 123/62 97 Nasal Cannula 09/10/17 16:00 97.3 78 18 137/76 99 Nasal Cannula 2.0 09/10/17 11:51 95.9 72 20 130/74 100 Nasal Cannula 2.0 09/10/17 09:14 67 128/58 09/10/17 09:13 128/58 09/10/17 08:58 67 128/58 Laboratory Tests 09/11/17 05:55: White Blood Count 31.3*H, Red Blood Count 3.67L, Hemoglobin 11.5L, Hematocrit 35.6L, Mean Corpuscular Volume 97, Mean Corpuscular Hemoglobin 31.2H, Mean Corpuscular Hemoglobin Concent 32.2, Red Cell Distribution Width 15.1H, Platelet Count 316, Mean Platelet Volume 7.8, Neutrophils (%) (Auto) , Lymphocytes (%) (Auto) , Monocytes (%) (Auto) , Eosinophils (%) (Auto) , Basophils (%) (Auto) , Neutrophils % (Manual) [Pending], Lymphocytes % (Manual) [Pending], Platelet Estimate [Pending], Platelet Morphology [Pending], Sodium Level 134L, Potassium Level 5.1, Chloride Level 107, Carbon Dioxide Level 21, Anion Gap 6, Blood Urea Nitrogen 10, Creatinine 1.0, Estimat Glomerular Filtration Rate > 60, Glucose Level 328H, Calcium Level 7.8L Height (Feet): 5 Height (Inches): 3.00 Weight (Pounds): 158 General Appearance: lethargic EENT: pale conjunctivae Neck: normal alignment Cardiovascular: normal rate Respiratory/Chest: decreased breath sounds Abdomen: normal bowel sounds Edema: 1+ Arm (L), 1+ Arm (R), 1+ Leg (L), 1+ Leg (R), 1+ Pedal (L), 1+ Pedal ( R), 1+ Generalized Objective Current Medications Medications (Trade) Dose Ordered Sig/Adonay Route PRN Reason Start Time Stop Time Status Last Admin Dose Admin Acetaminophen (Tylenol) 650 mg Q6H PRN ORAL Mild Pain/Temp > 100.5 09/09/17 19:00 09/18/17 18:59 09/10/17 20:49 Amlodipine Besylate (Norvasc) 10 mg DAILY NG 09/11/17 09:00 10/11/17 08:59 Ascorbic Acid (Vitamin C) 500 mg DAILY NG 09/10/17 09:00 09/22/17 08:59 09/10/17 09:14 Citalopram Hydrobromide (celeXA) 20 mg DAILY GT 09/10/17 09:00 09/18/17 08:59 09/10/17 09:12 Clonidine HCl (Catapres) 0.1 mg Q6H PRN NG SBP > 160mmHg 09/09/17 13:40 09/22/17 13:39 Dextrose (Dextrose 50%) STAT PRN IV Hypoglycemia 09/09/17 14:30 09/20/17 14:29 09/09/17 17:29 Dextrose/Sodium Chloride 1,000 ml @ 50 mls/hr Q20H IV 09/10/17 14:30 10/10/17 14:29 09/10/17 14:40 Insulin Aspart (NovoLOG) EVERY 6 HOURS SUBQ 09/09/17 18:00 09/19/17 08:59 09/11/17 05:55 Iron Sucrose 100 mg/Sodium Chloride 60 ml @ 240 mls/hr BEDTIME IV 09/09/17 21:00 09/11/17 21:01 09/10/17 21:13 Lactulose (Cephulac) 30 gm THREE TIMES A DAY GT 09/10/17 10:15 10/10/17 10:14 09/10/17 18:46 Lansoprazole (Prevacid) 30 mg ACBREAKFAST NG 09/10/17 06:30 10/10/17 06:29 09/11/17 06:51 Levothyroxine Sodium (Synthroid) 100 mcg ACBREAKFAST NG 09/10/17 06:30 10/10/17 06:29 09/11/17 05:54 Losartan Potassium (Cozaar) 50 mg DAILY NG 09/10/17 09:00 09/22/17 08:59 09/10/17 09:13 Meropenem 1 gm/ Sodium Chloride 110 ml @ 220 mls/hr Q12HR@0100,1300 IVPB 09/11/17 01:00 09/16/17 00:59 09/11/17 00:33 Metoclopramide HCl (Reglan) 10 mg Q8HR IVP 09/10/17 08:45 10/10/17 08:44 09/11/17 05:54 Metronidazole 100 ml @ 100 mls/hr Q8H IVPB 09/10/17 18:00 09/17/17 17:59 09/11/17 01:58 Micafungin Sodium 100 mg/Sodium Chloride 100 ml @ 100 mls/hr Q24H IVPB 09/10/17 15:00 09/17/17 14:59 09/10/17 16:24 Multivitamins (Multivitamins) 1 tab DAILY ORAL 09/10/17 09:00 09/18/17 08:59 09/10/17 09:14 Ondansetron HCl (Zofran) 4 mg Q6H PRN NG Nausea & Vomiting 09/09/17 15:30 09/18/17 07:59 09/10/17 20:49 Oxycodone/ Acetaminophen (Percocet 5-325) 1 tab Q6H PRN ORAL Severe Pain (Pain Scale 7-10) 09/09/17 13:30 09/16/17 13:29 09/11/17 05:54 Quetiapine Fumarate (SEROquel) 12.5 mg Q12H PRN ORAL Agitation 09/09/17 13:45 09/29/17 13:44 09/10/17 20:49 Vancomycin HCl (Vanco rx to dose) 1 ea DAILY PRN MISC Per rx protocol 09/10/17 09:00 09/27/17 16:14 Vancomycin HCl (Vancomycin) 125 mg FOUR TIMES A DAY ORAL 09/09/17 14:00 09/14/17 13:59 09/10/17 21:13 Vancomycin/Sodium Chloride 250 ml @ 166.667 mls/hr Q24H IVPB 09/10/17 14:00 09/14/17 13:59 09/10/17 14:38 Item Value Date Time Bedside Blood Glucose 314 mg/dl H 09/11/17 0555 Bedside Blood Glucose 108 mg/dl 09/11/17 0017 Bedside Blood Glucose 284 mg/dl H 09/10/17 1855 Bedside Blood Glucose 181 mg/dl H 09/10/17 1332 Bedside Blood Glucose 158 mg/dl H 09/10/17 0600 KAYLEE DARNELL Sep 11, 2017 08:24
--- NOTE | 2017-09-11 08:24 | General Progress Note ---
Assessment/Plan Problem List: (1) DKA (diabetic ketoacidoses) ICD Codes: E13.10 - Other specified diabetes mellitus with ketoacidosis without coma SNOMED: 28211900, 845631764 (2) Altered level of consciousness ICD Codes: R40.4 - Transient alteration of awareness SNOMED: 0542943 (3) Hyperkalemia ICD Codes: E87.5 - Hyperkalemia SNOMED: 96142652 (4) Rhabdomyolysis ICD Codes: M62.82 - Rhabdomyolysis SNOMED: 650641692, 142154773 (5) Diabetes mellitus out of control ICD Codes: E11.65 - Type 2 diabetes mellitus with hyperglycemia SNOMED: 433188903, 86814921 (6) Sepsis ICD Codes: A41.9 - Sepsis, unspecified organism SNOMED: 36386597 (7) Hypothyroidism ICD Codes: E03.9 - Hypothyroidism, unspecified SNOMED: 13921944 Assessment/Plan BG elevated resume Levemir 8 units bid continue Novolog sliding scale every 6 hours Continue Levothyroxine to 100 mcg daily - increased from 75 mcg on 09/09/17 repeat TSH in 2 weeks Subjective ROS Limited/Unobtainable: Yes Allergies: Coded Allergies: No Known Allergies (Unverified , 08/18/17) Subjective events noted - interval notes reviewed Objective Last 24 Hour Vital Signs Date Time Temp Pulse Resp B/P (MAP) Pulse Ox O2 Delivery O2 Flow Rate FiO2 09/11/17 03:34 97.7 82 18 119/65 99 Nasal Cannula 09/10/17 23:37 97.7 111 18 120/66 97 Nasal Cannula 09/10/17 20:08 Nasal Cannula 3.0 32 09/10/17 20:08 97 Nasal Cannula 3.0 32 09/10/17 19:51 97.7 77 18 123/62 97 Nasal Cannula 09/10/17 16:00 97.3 78 18 137/76 99 Nasal Cannula 2.0 09/10/17 11:51 95.9 72 20 130/74 100 Nasal Cannula 2.0 09/10/17 09:14 67 128/58 09/10/17 09:13 128/58 09/10/17 08:58 67 128/58 Laboratory Tests 09/11/17 05:55: White Blood Count 31.3*H, Red Blood Count 3.67L, Hemoglobin 11.5L, Hematocrit 35.6L, Mean Corpuscular Volume 97, Mean Corpuscular Hemoglobin 31.2H, Mean Corpuscular Hemoglobin Concent 32.2, Red Cell Distribution Width 15.1H, Platelet Count 316, Mean Platelet Volume 7.8, Neutrophils (%) (Auto) , Lymphocytes (%) (Auto) , Monocytes (%) (Auto) , Eosinophils (%) (Auto) , Basophils (%) (Auto) , Neutrophils % (Manual) [Pending], Lymphocytes % (Manual) [Pending], Platelet Estimate [Pending], Platelet Morphology [Pending], Sodium Level 134L, Potassium Level 5.1, Chloride Level 107, Carbon Dioxide Level 21, Anion Gap 6, Blood Urea Nitrogen 10, Creatinine 1.0, Estimat Glomerular Filtration Rate > 60, Glucose Level 328H, Calcium Level 7.8L Height (Feet): 5 Height (Inches): 3.00 Weight (Pounds): 158 General Appearance: lethargic EENT: pale conjunctivae Neck: normal alignment Cardiovascular: normal rate Respiratory/Chest: decreased breath sounds Abdomen: normal bowel sounds Edema: 1+ Arm (L), 1+ Arm (R), 1+ Leg (L), 1+ Leg (R), 1+ Pedal (L), 1+ Pedal ( R), 1+ Generalized Objective Current Medications Medications (Trade) Dose Ordered Sig/Adonay Route PRN Reason Start Time Stop Time Status Last Admin Dose Admin Acetaminophen (Tylenol) 650 mg Q6H PRN ORAL Mild Pain/Temp > 100.5 09/09/17 19:00 09/18/17 18:59 09/10/17 20:49 Amlodipine Besylate (Norvasc) 10 mg DAILY NG 09/11/17 09:00 10/11/17 08:59 Ascorbic Acid (Vitamin C) 500 mg DAILY NG 09/10/17 09:00 09/22/17 08:59 09/10/17 09:14 Citalopram Hydrobromide (celeXA) 20 mg DAILY GT 09/10/17 09:00 09/18/17 08:59 09/10/17 09:12 Clonidine HCl (Catapres) 0.1 mg Q6H PRN NG SBP > 160mmHg 09/09/17 13:40 09/22/17 13:39 Dextrose (Dextrose 50%) STAT PRN IV Hypoglycemia 09/09/17 14:30 09/20/17 14:29 09/09/17 17:29 Dextrose/Sodium Chloride 1,000 ml @ 50 mls/hr Q20H IV 09/10/17 14:30 10/10/17 14:29 09/10/17 14:40 Insulin Aspart (NovoLOG) EVERY 6 HOURS SUBQ 09/09/17 18:00 09/19/17 08:59 09/11/17 05:55 Iron Sucrose 100 mg/Sodium Chloride 60 ml @ 240 mls/hr BEDTIME IV 09/09/17 21:00 09/11/17 21:01 09/10/17 21:13 Lactulose (Cephulac) 30 gm THREE TIMES A DAY GT 09/10/17 10:15 10/10/17 10:14 09/10/17 18:46 Lansoprazole (Prevacid) 30 mg ACBREAKFAST NG 09/10/17 06:30 10/10/17 06:29 09/11/17 06:51 Levothyroxine Sodium (Synthroid) 100 mcg ACBREAKFAST NG 09/10/17 06:30 10/10/17 06:29 09/11/17 05:54 Losartan Potassium (Cozaar) 50 mg DAILY NG 09/10/17 09:00 09/22/17 08:59 09/10/17 09:13 Meropenem 1 gm/ Sodium Chloride 110 ml @ 220 mls/hr Q12HR@0100,1300 IVPB 09/11/17 01:00 09/16/17 00:59 09/11/17 00:33 Metoclopramide HCl (Reglan) 10 mg Q8HR IVP 09/10/17 08:45 10/10/17 08:44 09/11/17 05:54 Metronidazole 100 ml @ 100 mls/hr Q8H IVPB 09/10/17 18:00 09/17/17 17:59 09/11/17 01:58 Micafungin Sodium 100 mg/Sodium Chloride 100 ml @ 100 mls/hr Q24H IVPB 09/10/17 15:00 09/17/17 14:59 09/10/17 16:24 Multivitamins (Multivitamins) 1 tab DAILY ORAL 09/10/17 09:00 09/18/17 08:59 09/10/17 09:14 Ondansetron HCl (Zofran) 4 mg Q6H PRN NG Nausea & Vomiting 09/09/17 15:30 09/18/17 07:59 09/10/17 20:49 Oxycodone/ Acetaminophen (Percocet 5-325) 1 tab Q6H PRN ORAL Severe Pain (Pain Scale 7-10) 09/09/17 13:30 09/16/17 13:29 09/11/17 05:54 Quetiapine Fumarate (SEROquel) 12.5 mg Q12H PRN ORAL Agitation 09/09/17 13:45 09/29/17 13:44 09/10/17 20:49 Vancomycin HCl (Vanco rx to dose) 1 ea DAILY PRN MISC Per rx protocol 09/10/17 09:00 09/27/17 16:14 Vancomycin HCl (Vancomycin) 125 mg FOUR TIMES A DAY ORAL 09/09/17 14:00 09/14/17 13:59 09/10/17 21:13 Vancomycin/Sodium Chloride 250 ml @ 166.667 mls/hr Q24H IVPB 09/10/17 14:00 09/14/17 13:59 09/10/17 14:38 Item Value Date Time Bedside Blood Glucose 314 mg/dl H 09/11/17 0555 Bedside Blood Glucose 108 mg/dl 09/11/17 0017 Bedside Blood Glucose 284 mg/dl H 09/10/17 1855 Bedside Blood Glucose 181 mg/dl H 09/10/17 1332 Bedside Blood Glucose 158 mg/dl H 09/10/17 0600 KAYLEE DARNELL Sep 11, 2017 08:24
--- NOTE | 2017-09-11 08:24 | General Progress Note ---
Assessment/Plan Problem List: (1) DKA (diabetic ketoacidoses) ICD Codes: E13.10 - Other specified diabetes mellitus with ketoacidosis without coma SNOMED: 32334096, 461482846 (2) Altered level of consciousness ICD Codes: R40.4 - Transient alteration of awareness SNOMED: 6642776 (3) Hyperkalemia ICD Codes: E87.5 - Hyperkalemia SNOMED: 78220571 (4) Rhabdomyolysis ICD Codes: M62.82 - Rhabdomyolysis SNOMED: 910782423, 927017641 (5) Diabetes mellitus out of control ICD Codes: E11.65 - Type 2 diabetes mellitus with hyperglycemia SNOMED: 166501329, 35693086 (6) Sepsis ICD Codes: A41.9 - Sepsis, unspecified organism SNOMED: 07562248 (7) Hypothyroidism ICD Codes: E03.9 - Hypothyroidism, unspecified SNOMED: 30212617 Assessment/Plan BG elevated resume Levemir 8 units bid continue Novolog sliding scale every 6 hours Continue Levothyroxine to 100 mcg daily - increased from 75 mcg on 09/09/17 repeat TSH in 2 weeks Subjective ROS Limited/Unobtainable: Yes Allergies: Coded Allergies: No Known Allergies (Unverified , 08/18/17) Subjective events noted - interval notes reviewed Objective Last 24 Hour Vital Signs Date Time Temp Pulse Resp B/P (MAP) Pulse Ox O2 Delivery O2 Flow Rate FiO2 09/11/17 03:34 97.7 82 18 119/65 99 Nasal Cannula 09/10/17 23:37 97.7 111 18 120/66 97 Nasal Cannula 09/10/17 20:08 Nasal Cannula 3.0 32 09/10/17 20:08 97 Nasal Cannula 3.0 32 09/10/17 19:51 97.7 77 18 123/62 97 Nasal Cannula 09/10/17 16:00 97.3 78 18 137/76 99 Nasal Cannula 2.0 09/10/17 11:51 95.9 72 20 130/74 100 Nasal Cannula 2.0 09/10/17 09:14 67 128/58 09/10/17 09:13 128/58 09/10/17 08:58 67 128/58 Laboratory Tests 09/11/17 05:55: White Blood Count 31.3*H, Red Blood Count 3.67L, Hemoglobin 11.5L, Hematocrit 35.6L, Mean Corpuscular Volume 97, Mean Corpuscular Hemoglobin 31.2H, Mean Corpuscular Hemoglobin Concent 32.2, Red Cell Distribution Width 15.1H, Platelet Count 316, Mean Platelet Volume 7.8, Neutrophils (%) (Auto) , Lymphocytes (%) (Auto) , Monocytes (%) (Auto) , Eosinophils (%) (Auto) , Basophils (%) (Auto) , Neutrophils % (Manual) [Pending], Lymphocytes % (Manual) [Pending], Platelet Estimate [Pending], Platelet Morphology [Pending], Sodium Level 134L, Potassium Level 5.1, Chloride Level 107, Carbon Dioxide Level 21, Anion Gap 6, Blood Urea Nitrogen 10, Creatinine 1.0, Estimat Glomerular Filtration Rate > 60, Glucose Level 328H, Calcium Level 7.8L Height (Feet): 5 Height (Inches): 3.00 Weight (Pounds): 158 General Appearance: lethargic EENT: pale conjunctivae Neck: normal alignment Cardiovascular: normal rate Respiratory/Chest: decreased breath sounds Abdomen: normal bowel sounds Edema: 1+ Arm (L), 1+ Arm (R), 1+ Leg (L), 1+ Leg (R), 1+ Pedal (L), 1+ Pedal ( R), 1+ Generalized Objective Current Medications Medications (Trade) Dose Ordered Sig/Adonay Route PRN Reason Start Time Stop Time Status Last Admin Dose Admin Acetaminophen (Tylenol) 650 mg Q6H PRN ORAL Mild Pain/Temp > 100.5 09/09/17 19:00 09/18/17 18:59 09/10/17 20:49 Amlodipine Besylate (Norvasc) 10 mg DAILY NG 09/11/17 09:00 10/11/17 08:59 Ascorbic Acid (Vitamin C) 500 mg DAILY NG 09/10/17 09:00 09/22/17 08:59 09/10/17 09:14 Citalopram Hydrobromide (celeXA) 20 mg DAILY GT 09/10/17 09:00 09/18/17 08:59 09/10/17 09:12 Clonidine HCl (Catapres) 0.1 mg Q6H PRN NG SBP > 160mmHg 09/09/17 13:40 09/22/17 13:39 Dextrose (Dextrose 50%) STAT PRN IV Hypoglycemia 09/09/17 14:30 09/20/17 14:29 09/09/17 17:29 Dextrose/Sodium Chloride 1,000 ml @ 50 mls/hr Q20H IV 09/10/17 14:30 10/10/17 14:29 09/10/17 14:40 Insulin Aspart (NovoLOG) EVERY 6 HOURS SUBQ 09/09/17 18:00 09/19/17 08:59 09/11/17 05:55 Iron Sucrose 100 mg/Sodium Chloride 60 ml @ 240 mls/hr BEDTIME IV 09/09/17 21:00 09/11/17 21:01 09/10/17 21:13 Lactulose (Cephulac) 30 gm THREE TIMES A DAY GT 09/10/17 10:15 10/10/17 10:14 09/10/17 18:46 Lansoprazole (Prevacid) 30 mg ACBREAKFAST NG 09/10/17 06:30 10/10/17 06:29 09/11/17 06:51 Levothyroxine Sodium (Synthroid) 100 mcg ACBREAKFAST NG 09/10/17 06:30 10/10/17 06:29 09/11/17 05:54 Losartan Potassium (Cozaar) 50 mg DAILY NG 09/10/17 09:00 09/22/17 08:59 09/10/17 09:13 Meropenem 1 gm/ Sodium Chloride 110 ml @ 220 mls/hr Q12HR@0100,1300 IVPB 09/11/17 01:00 09/16/17 00:59 09/11/17 00:33 Metoclopramide HCl (Reglan) 10 mg Q8HR IVP 09/10/17 08:45 10/10/17 08:44 09/11/17 05:54 Metronidazole 100 ml @ 100 mls/hr Q8H IVPB 09/10/17 18:00 09/17/17 17:59 09/11/17 01:58 Micafungin Sodium 100 mg/Sodium Chloride 100 ml @ 100 mls/hr Q24H IVPB 09/10/17 15:00 09/17/17 14:59 09/10/17 16:24 Multivitamins (Multivitamins) 1 tab DAILY ORAL 09/10/17 09:00 09/18/17 08:59 09/10/17 09:14 Ondansetron HCl (Zofran) 4 mg Q6H PRN NG Nausea & Vomiting 09/09/17 15:30 09/18/17 07:59 09/10/17 20:49 Oxycodone/ Acetaminophen (Percocet 5-325) 1 tab Q6H PRN ORAL Severe Pain (Pain Scale 7-10) 09/09/17 13:30 09/16/17 13:29 09/11/17 05:54 Quetiapine Fumarate (SEROquel) 12.5 mg Q12H PRN ORAL Agitation 09/09/17 13:45 09/29/17 13:44 09/10/17 20:49 Vancomycin HCl (Vanco rx to dose) 1 ea DAILY PRN MISC Per rx protocol 09/10/17 09:00 09/27/17 16:14 Vancomycin HCl (Vancomycin) 125 mg FOUR TIMES A DAY ORAL 09/09/17 14:00 09/14/17 13:59 09/10/17 21:13 Vancomycin/Sodium Chloride 250 ml @ 166.667 mls/hr Q24H IVPB 09/10/17 14:00 09/14/17 13:59 09/10/17 14:38 Item Value Date Time Bedside Blood Glucose 314 mg/dl H 09/11/17 0555 Bedside Blood Glucose 108 mg/dl 09/11/17 0017 Bedside Blood Glucose 284 mg/dl H 09/10/17 1855 Bedside Blood Glucose 181 mg/dl H 09/10/17 1332 Bedside Blood Glucose 158 mg/dl H 09/10/17 0600 KAYLEE DARNELL Sep 11, 2017 08:24
[2017-09-11] MEDS: Lactulose 20gm/30ml UDC GT SCH ×3 (08:26→17:24)
[2017-09-11] MEDS: Losartan 50mg tab NG SCH (08:27)
[2017-09-11] MEDS: Vancomycin oral 125mg/2.5ml ORAL SCH ×4 (08:27→22:19)
[2017-09-11] MEDS: Ascorbic Acid 500mg tab NG SCH (08:27)
[2017-09-11] MEDS: Citalopram Hydrobromide 10mg Tab GT SCH (08:28)
[2017-09-11] MEDS: D5 1/2NS 1,000 ML IV SCH ×2 (10:37→13:49)
--- NOTE | 2017-09-11 10:37 | Diagnostic Imaging Report ---
Indication: DYSPNEA Technique: One view of the chest Comparison: 09/08/2017 Findings: Again demonstrated is diffuse bilateral interstitial disease, appearance suggestive of chronic interstitial fibrotic change. There may also be a superimposed acute component. There does appear to be increased retrocardiac consolidation. There is slight blunting of the bilateral costophrenic angles which could indicate a small amount of pleural fluid. Impression: Bilateral diffuse interstitial disease. Suspect mostly chronic, but there is possibly new or increased acute component in the retrocardiac region. Suspect small bilateral pleural effusions
[2017-09-11] MEDS: Levemir Flexpen SUBQ SCH ×2 (10:40→17:47)
--- NOTE | 2017-09-11 11:59 | General Progress Note ---
Progress Note Progress Note Surgery: patient seen and examined. states she is doing well. has been having elevated leukocytosis and fevers. no n/v. otherwise okay. tolerating tube feeds now. full exam performed. sacral decubitus ulcer again reviewed and just dry eschar cap over sacral decub. no signs of infection. no drainage. bilateral heal wounds evaluated. left heel with no signs of infection or drainage. forming decubitus ulcer (currently stage 1). currently small but will enlarge if not properly attended to. right heel with larger area of ischemic tissue from pressure. poor vascular perfusion to area. no drainage or active signs of infection. given above i discussed with patient placing 18g needle into wound to ensure no underlying pathology. she consented. site cleaned and 18g needle inserted. nothing aspirated. no underling abscess noted. leukocytosis etiology unknown. does not seem to be any of her wounds. will continue to closely monitor wounds for change. as for now continue with wound care. keep off pressure wounds. cont work up for source. Leopoldo Davila Sep 11, 2017 11:59
[2017-09-11 12:00] VITALS: BP 117/59
--- NOTE | 2017-09-11 12:56 | Pulmonology Progress Note ---
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 DM rx per Dr Lupe swanson RN Subjective Constitutional: Reports: other - pain, sacrum Allergies: Coded Allergies: No Known Allergies (Unverified , 08/18/17) Objective Last 24 Hour Vital Signs Date Time Temp Pulse Resp B/P (MAP) Pulse Ox O2 Delivery O2 Flow Rate FiO2 09/11/17 08:27 82 119/65 09/11/17 08:27 119/65 09/11/17 08:00 97.3 74 18 116/56 94 Nasal Cannula 2.0 09/11/17 03:34 97.7 82 18 119/65 99 Nasal Cannula 09/10/17 23:37 97.7 111 18 120/66 97 Nasal Cannula 09/10/17 20:08 Nasal Cannula 3.0 32 09/10/17 20:08 97 Nasal Cannula 3.0 32 09/10/17 19:51 97.7 77 18 123/62 97 Nasal Cannula 09/10/17 16:00 97.3 78 18 137/76 99 Nasal Cannula 2.0 Intake and Output 09/11/17 09/12/17 19:00 07:00 Intake Total 250 ml Balance 250 ml IV Total 250 ml Objective G tube General Appearance: no acute distress, cachetic HEENT: atraumatic Respiratory/Chest: lungs clear Cardiovascular: normal rate Abdomen: soft, non tender Laboratory Tests 09/11/17 05:55: White Blood Count 31.3*H, Red Blood Count 3.67L, Hemoglobin 11.5L, Hematocrit 35.6L, Mean Corpuscular Volume 97, Mean Corpuscular Hemoglobin 31.2H, Mean Corpuscular Hemoglobin Concent 32.2, Red Cell Distribution Width 15.1H, Platelet Count 316, Mean Platelet Volume 7.8, Neutrophils (%) (Auto) , Lymphocytes (%) (Auto) , Monocytes (%) (Auto) , Eosinophils (%) (Auto) , Basophils (%) (Auto) , Differential Total Cells Counted 100, Neutrophils % ( Manual) 88H, Lymphocytes % (Manual) 3L, Monocytes % (Manual) 9, Eosinophils % ( Manual) 0, Basophils % (Manual) 0, Band Neutrophils 0, Platelet Estimate Adequate, Platelet Morphology Normal, Anisocytosis 1+, Sodium Level 134L, Potassium Level 5.1, Chloride Level 107, Carbon Dioxide Level 21, Anion Gap 6, Blood Urea Nitrogen 10, Creatinine 1.0, Estimat Glomerular Filtration Rate > 60 , Glucose Level 328H, Calcium Level 7.8L Current Medications Medications (Trade) Dose Ordered Sig/Adonay Route PRN Reason Start Time Stop Time Status Last Admin Dose Admin Acetaminophen (Tylenol) 650 mg Q6H PRN ORAL Mild Pain/Temp > 100.5 09/09/17 19:00 09/18/17 18:59 09/10/17 20:49 Amlodipine Besylate (Norvasc) 10 mg DAILY NG 09/11/17 09:00 10/11/17 08:59 09/11/17 08:27 Ascorbic Acid (Vitamin C) 500 mg DAILY NG 09/10/17 09:00 09/22/17 08:59 09/11/17 08:27 Citalopram Hydrobromide (celeXA) 20 mg DAILY GT 09/10/17 09:00 09/18/17 08:59 09/11/17 08:28 Clonidine HCl (Catapres) 0.1 mg Q6H PRN NG SBP > 160mmHg 09/09/17 13:40 09/22/17 13:39 Dextrose (Dextrose 50%) STAT PRN IV Hypoglycemia 09/11/17 08:30 10/11/17 08:29 Dextrose/Sodium Chloride 1,000 ml @ 50 mls/hr Q20H IV 09/10/17 14:30 10/10/17 14:29 09/11/17 10:37 Insulin Aspart (NovoLOG) EVERY 6 HOURS SUBQ 09/09/17 18:00 09/19/17 08:59 09/11/17 12:00 Insulin Detemir (Levemir) 8 units BID SUBQ 09/11/17 09:00 10/11/17 08:59 09/11/17 10:40 Iron Sucrose 100 mg/Sodium Chloride 60 ml @ 240 mls/hr BEDTIME IV 09/09/17 21:00 09/11/17 21:01 09/10/17 21:13 Lactulose (Cephulac) 30 gm THREE TIMES A DAY GT 09/10/17 10:15 10/10/17 10:14 09/11/17 08:26 Lansoprazole (Prevacid) 30 mg ACBREAKFAST NG 09/10/17 06:30 10/10/17 06:29 09/11/17 06:51 Levothyroxine Sodium (Synthroid) 100 mcg ACBREAKFAST NG 09/10/17 06:30 10/10/17 06:29 09/11/17 05:54 Losartan Potassium (Cozaar) 50 mg DAILY NG 09/10/17 09:00 09/22/17 08:59 09/11/17 08:27 Meropenem 1 gm/ Sodium Chloride 110 ml @ 220 mls/hr Q12HR@0100,1300 IVPB 09/11/17 01:00 09/16/17 00:59 09/11/17 00:33 Metoclopramide HCl (Reglan) 10 mg Q8HR IVP 09/10/17 08:45 10/10/17 08:44 09/11/17 05:54 Metronidazole 100 ml @ 100 mls/hr Q8H IVPB 09/10/17 18:00 09/17/17 17:59 09/11/17 10:00 Micafungin Sodium 100 mg/Sodium Chloride 100 ml @ 100 mls/hr Q24H IVPB 09/10/17 15:00 09/17/17 14:59 09/10/17 16:24 Multivitamins (Multivitamins) 1 tab DAILY ORAL 09/10/17 09:00 09/18/17 08:59 09/11/17 08:28 Ondansetron HCl (Zofran) 4 mg Q6H PRN NG Nausea & Vomiting 09/09/17 15:30 09/18/17 07:59 09/10/17 20:49 Oxycodone/ Acetaminophen (Percocet 5-325) 1 tab Q6H PRN ORAL Severe Pain (Pain Scale 7-10) 09/09/17 13:30 09/16/17 13:29 09/11/17 05:54 Quetiapine Fumarate (SEROquel) 12.5 mg Q12H PRN ORAL Agitation 09/09/17 13:45 09/29/17 13:44 09/10/17 20:49 Vancomycin HCl (Vanco rx to dose) 1 ea DAILY PRN MISC Per rx protocol 09/10/17 09:00 09/27/17 16:14 Vancomycin HCl (Vancomycin) 125 mg FOUR TIMES A DAY ORAL 09/09/17 14:00 09/14/17 13:59 09/11/17 08:27 Vancomycin/Sodium Chloride 250 ml @ 166.667 mls/hr Q24H IVPB 09/10/17 14:00 09/14/17 13:59 09/10/17 14:38 PATRICIA LUGO Sep 11, 2017 12:56
--- NOTE | 2017-09-11 13:04 | Infectious Diseases Prog Note ---
Assessment/Plan Assessment/Plan ASSESSMENT AND PLAN: 1. sepsis, klebsiella uti, possible pna, worsening leukocytosis and hx fevers, ? c.diff., s/p g-tube, dwight glabrata fungal uti, fungemia, ct without abscess - check f/u cultures, check sc, check surveillance blood cultures, check c.diff. - change abx to cefepime, iv/po vanco, flagyl, micafungin - check labs, check chest x-ray - surgery note reviewed - no decubitus infection, no abscess on aspiration 2. The patient has history of diabetes. 3. Hypertension. 4. Anemia, hypernatremia 5. Respiratory insufficiency. 6. Blood sugar and blood pressure control per primary. 7. Diabetic ketoacidosis. 8. History of anxiety. 9. Depression. 10. Dementia. 11. Chronic pain syndrome. 12. Aspiration risk. 13. Altered mental status. 14. Poor historian. 15. No known allergies. 16. Social history is negative. 17. Family history is noncontributory. 18. MAR was noted. 19. Case was discussed with RN. 20. Notes and records were noted. 21. Skin care protocol. 22. I have reviewed the wounds. I do not think this is her source of sepsis. Continue local wound care protocol. wc - likely colonizer. 23. Continue treatment per Dr. Winn. Subjective Constitutional: Denies: fever HEENT: Reports: congestion - less Respiratory: Reports: shortness of breath - less Cardiovascular: Denies: chest pain Gastrointestinal/Abdominal: Reports: diarrhea, Denies: nausea, vomiting Neurologic: Denies: headache Psychiatric: Reports: no symptoms Skin: Denies: rash Hematologic: Denies: bleeding Musculoskeletal: Denies: pain Allergies: Coded Allergies: No Known Allergies (Unverified , 08/18/17) Objective Vital Signs Last 24 Hour Vital Signs Date Time Temp Pulse Resp B/P (MAP) Pulse Ox O2 Delivery O2 Flow Rate FiO2 09/11/17 08:27 82 119/65 09/11/17 08:27 119/65 09/11/17 08:00 97.3 74 18 116/56 94 Nasal Cannula 2.0 09/11/17 03:34 97.7 82 18 119/65 99 Nasal Cannula 09/10/17 23:37 97.7 111 18 120/66 97 Nasal Cannula 09/10/17 20:08 Nasal Cannula 3.0 32 09/10/17 20:08 97 Nasal Cannula 3.0 32 09/10/17 19:51 97.7 77 18 123/62 97 Nasal Cannula 09/10/17 16:00 97.3 78 18 137/76 99 Nasal Cannula 2.0 Height (Feet): 5 Height (Inches): 3.00 Weight (Pounds): 158 General Appearance: no acute distress HEENT: normocephalic, atraumatic, anicteric, mucous membranes moist Respiratory/Chest: lungs clear, normal breath sounds, no respiratory distress, no accessory muscle use Cardiovascular: normal rate, regular rhythm Abdomen: normal bowel sounds, soft, non tender, no organomegaly, non distended Genitourinary: other - + rowe - urine clearer Extremities: no cyanosis Skin: no rash Neurologic/Psychiatric: 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 The pleural spaces are clear. The heart size is normal. There is a nasogastric tube again demonstrated. Left shoulder hardware is again demonstrated 09/01 - chest x-ray: Impression: Unchanged, over one day, findings as above. Findings: Interstitial opacities again appear prominent bilaterally. Heart size is stable. NG tube is noted and in good position. Impression: No radiographic change. Interstitial opacities nonspecific 09/04 chest x-ray: Comparison: 09/01/2017 Findings: Bilateral diffuse interstitial and alveolar disease is unchanged. The heart size is normal. Pleural spaces are clear Impression: Unchanged, over 3 days, findings as above. CT abdomen and pelvis: Impression: Small amount of free air in the anterior epigastric region likely related to recent gastrostomy placement. Gastrostomy in good position. Basilar reticular lung disease, nonspecific. Left basilar pneumonia versus atelectasis. Please correlate clinically. Atherosclerotic disease Rowe catheter in good position. Breathing motion artifact. Anasarca. Trace ascites Microbiology Date/Time Source Procedure Growth Status 09/07/17 20:00 Blood Blood Culture - Preliminary NO GROWTH AFTER 72 HOURS Resulted 09/07/17 22:00 Sputum Induced Gram Stain - Final Resulted 09/07/17 22:00 Sputum Culture - Preliminary Gram Positive Cocci Usual Upper Respiratory Bertha Resulted 08/30/17 18:30 Stool Clostridium difficile Toxin Assay - Final Complete 09/07/17 19:00 Indwelling Cath Urine Culture - Final NO GROWTH AFTER 48 HOURS Complete 08/19/17 07:00 Buttock Left Gram Stain - Final Complete 08/19/17 07:00 Wound Culture - Final Staphylococcus Sp Coag Neg Diphtheroids Complete Laboratory Tests Test 09/11/17 05:55 White Blood Count 31.3 K/UL (4.8-10.8) *H Red Blood Count 3.67 M/UL (4.20-5.40) L Hemoglobin 11.5 G/DL (12.0-16.0) L Hematocrit 35.6 % (37.0-47.0) L Mean Corpuscular Volume 97 FL (80-99) Mean Corpuscular Hemoglobin 31.2 PG (27.0-31.0) H Mean Corpuscular Hemoglobin Concent 32.2 G/DL (32.0-36.0) Red Cell Distribution Width 15.1 % (11.6-14.8) H Platelet Count 316 K/UL (150-450) Mean Platelet Volume 7.8 FL (6.5-10.1) Neutrophils (%) (Auto) % (45.0-75.0) Lymphocytes (%) (Auto) % (20.0-45.0) Monocytes (%) (Auto) % (1.0-10.0) Eosinophils (%) (Auto) % (0.0-3.0) Basophils (%) (Auto) % (0.0-2.0) Differential Total Cells Counted 100 Neutrophils % (Manual) 88 % (45-75) H Lymphocytes % (Manual) 3 % (20-45) L Monocytes % (Manual) 9 % (1-10) Eosinophils % (Manual) 0 % (0-3) Basophils % (Manual) 0 % (0-2) Band Neutrophils 0 % (0-8) Platelet Estimate Adequate Platelet Morphology Normal Anisocytosis 1+ Sodium Level 134 MMOL/L (136-145) L Potassium Level 5.1 MMOL/L (3.5-5.1) Chloride Level 107 MMOL/L (98-107) Carbon Dioxide Level 21 MMOL/L (21-32) Anion Gap 6 mmol/L (5-15) Blood Urea Nitrogen 10 mg/dL (7-18) Creatinine 1.0 MG/DL (0.55-1.30) Estimat Glomerular Filtration Rate > 60 mL/min (>60) Glucose Level 328 MG/DL (74-106) H Calcium Level 7.8 MG/DL (8.5-10.1) L Current Medications Medications (Trade) Dose Ordered Sig/Adonay Route PRN Reason Start Time Stop Time Status Last Admin Dose Admin Acetaminophen (Tylenol) 650 mg Q6H PRN ORAL Mild Pain/Temp > 100.5 09/09/17 19:00 09/18/17 18:59 09/10/17 20:49 Amlodipine Besylate (Norvasc) 10 mg DAILY NG 09/11/17 09:00 10/11/17 08:59 09/11/17 08:27 Ascorbic Acid (Vitamin C) 500 mg DAILY NG 09/10/17 09:00 09/22/17 08:59 09/11/17 08:27 Citalopram Hydrobromide (celeXA) 20 mg DAILY GT 09/10/17 09:00 09/18/17 08:59 09/11/17 08:28 Clonidine HCl (Catapres) 0.1 mg Q6H PRN NG SBP > 160mmHg 09/09/17 13:40 09/22/17 13:39 Dextrose (Dextrose 50%) STAT PRN IV Hypoglycemia 09/11/17 08:30 10/11/17 08:29 Dextrose/Sodium Chloride 1,000 ml @ 50 mls/hr Q20H IV 09/10/17 14:30 10/10/17 14:29 09/11/17 10:37 Insulin Aspart (NovoLOG) EVERY 6 HOURS SUBQ 09/09/17 18:00 09/19/17 08:59 09/11/17 12:00 Insulin Detemir (Levemir) 8 units BID SUBQ 09/11/17 09:00 10/11/17 08:59 09/11/17 10:40 Iron Sucrose 100 mg/Sodium Chloride 60 ml @ 240 mls/hr BEDTIME IV 09/09/17 21:00 09/11/17 21:01 09/10/17 21:13 Lactulose (Cephulac) 30 gm THREE TIMES A DAY GT 09/10/17 10:15 10/10/17 10:14 09/11/17 08:26 Lansoprazole (Prevacid) 30 mg ACBREAKFAST NG 09/10/17 06:30 10/10/17 06:29 09/11/17 06:51 Levothyroxine Sodium (Synthroid) 100 mcg ACBREAKFAST NG 09/10/17 06:30 10/10/17 06:29 09/11/17 05:54 Losartan Potassium (Cozaar) 50 mg DAILY NG 09/10/17 09:00 09/22/17 08:59 09/11/17 08:27 Meropenem 1 gm/ Sodium Chloride 110 ml @ 220 mls/hr Q12HR@0100,1300 IVPB 09/11/17 01:00 09/16/17 00:59 09/11/17 00:33 Metoclopramide HCl (Reglan) 10 mg Q8HR IVP 09/10/17 08:45 10/10/17 08:44 09/11/17 05:54 Metronidazole 100 ml @ 100 mls/hr Q8H IVPB 09/10/17 18:00 09/17/17 17:59 09/11/17 10:00 Micafungin Sodium 100 mg/Sodium Chloride 100 ml @ 100 mls/hr Q24H IVPB 09/10/17 15:00 09/17/17 14:59 09/10/17 16:24 Multivitamins (Multivitamins) 1 tab DAILY ORAL 09/10/17 09:00 09/18/17 08:59 09/11/17 08:28 Ondansetron HCl (Zofran) 4 mg Q6H PRN NG Nausea & Vomiting 09/09/17 15:30 09/18/17 07:59 09/10/17 20:49 Oxycodone/ Acetaminophen (Percocet 5-325) 1 tab Q6H PRN ORAL Severe Pain (Pain Scale 7-10) 09/09/17 13:30 09/16/17 13:29 09/11/17 05:54 Quetiapine Fumarate (SEROquel) 12.5 mg Q12H PRN ORAL Agitation 09/09/17 13:45 09/29/17 13:44 09/10/17 20:49 Vancomycin HCl (Vanco rx to dose) 1 ea DAILY PRN MISC Per rx protocol 09/10/17 09:00 09/27/17 16:14 Vancomycin HCl (Vancomycin) 125 mg FOUR TIMES A DAY ORAL 09/09/17 14:00 09/14/17 13:59 09/11/17 08:27 Vancomycin/Sodium Chloride 250 ml @ 166.667 mls/hr Q24H IVPB 09/10/17 14:00 09/14/17 13:59 09/10/17 14:38 YASIR RUEDA Sep 11, 2017 13:03
[2017-09-11] MEDS ORDERED: Tubing IV Secondary IV ONE (14:42)
[2017-09-11] MEDS: Vancomycin 750mg/NS 250ml 250 ML IVPB SCH (14:42)
[2017-09-11 15:59] VITALS: BP 132/58
[2017-09-11] MEDS: Cefepime HCl 2 GM in NS 110 ML IVPB SCH (16:44)
[2017-09-11 19:36] VITALS: BP 109/61
[2017-09-11] MEDS: Iron Sucrose 100 MG in NS 55 ML IV SCH (21:07)
--- NOTE | 2017-09-11 22:36 | General Progress Note ---
Assessment/Plan Assessment/Plan agitated at times much improved Subjective Allergies: Coded Allergies: No Known Allergies (Unverified , 08/18/17) Subjective calm no agitation Objective Last 24 Hour Vital Signs Date Time Temp Pulse Resp B/P (MAP) Pulse Ox O2 Delivery O2 Flow Rate FiO2 09/11/17 20:06 97 Nasal Cannula 3.0 32 09/11/17 20:06 Nasal Cannula 3.0 32 09/11/17 19:36 97.9 82 18 109/61 98 Room Air 09/11/17 15:59 97.3 79 18 132/58 98 Nasal Cannula 2.0 09/11/17 12:00 97.3 81 20 117/59 96 Nasal Cannula 2.0 09/11/17 08:27 82 119/65 09/11/17 08:27 119/65 09/11/17 08:00 97.3 74 18 116/56 94 Nasal Cannula 2.0 09/11/17 03:34 97.7 82 18 119/65 99 Nasal Cannula 09/10/17 23:37 97.7 111 18 120/66 97 Nasal Cannula Intake and Output 09/11/17 09/12/17 19:00 07:00 Intake Total 250 ml Output Total 600 ml Balance -350 ml IV Total 250 ml Output Urine Total 600 ml # Bowel Movements 1 Laboratory Tests 09/11/17 05:55: White Blood Count 31.3*H, Red Blood Count 3.67L, Hemoglobin 11.5L, Hematocrit 35.6L, Mean Corpuscular Volume 97, Mean Corpuscular Hemoglobin 31.2H, Mean Corpuscular Hemoglobin Concent 32.2, Red Cell Distribution Width 15.1H, Platelet Count 316, Mean Platelet Volume 7.8, Neutrophils (%) (Auto) , Lymphocytes (%) (Auto) , Monocytes (%) (Auto) , Eosinophils (%) (Auto) , Basophils (%) (Auto) , Differential Total Cells Counted 100, Neutrophils % ( Manual) 88H, Lymphocytes % (Manual) 3L, Monocytes % (Manual) 9, Eosinophils % ( Manual) 0, Basophils % (Manual) 0, Band Neutrophils 0, Platelet Estimate Adequate, Platelet Morphology Normal, Anisocytosis 1+, Sodium Level 134L, Potassium Level 5.1, Chloride Level 107, Carbon Dioxide Level 21, Anion Gap 6, Blood Urea Nitrogen 10, Creatinine 1.0, Estimat Glomerular Filtration Rate > 60 , Glucose Level 328H, Calcium Level 7.8L Height (Feet): 5 Height (Inches): 3.00 Weight (Pounds): 158 Audi Bonilla M.D. Sep 11, 2017 22:36
--- NOTE | 2017-09-11 23:02 | General Progress Note ---
Assessment/Plan Assessment/Plan Assessment - Respiratory failure - leukocytosis - Anemia - tube feed intolerance - IDDM - s/p PEG Recommendations - Advance feeds - monitor residuals - GT care - Elevate HOB - abx Subjective Allergies: Coded Allergies: No Known Allergies (Unverified , 08/18/17) Subjective above noted s/p PEG - POD #7 now on reglan TF on Objective Last 24 Hour Vital Signs Date Time Temp Pulse Resp B/P (MAP) Pulse Ox O2 Delivery O2 Flow Rate FiO2 09/11/17 20:06 97 Nasal Cannula 3.0 32 09/11/17 20:06 Nasal Cannula 3.0 32 09/11/17 19:36 97.9 82 18 109/61 98 Room Air 09/11/17 15:59 97.3 79 18 132/58 98 Nasal Cannula 2.0 09/11/17 12:00 97.3 81 20 117/59 96 Nasal Cannula 2.0 09/11/17 08:27 82 119/65 09/11/17 08:27 119/65 09/11/17 08:00 97.3 74 18 116/56 94 Nasal Cannula 2.0 09/11/17 03:34 97.7 82 18 119/65 99 Nasal Cannula 09/10/17 23:37 97.7 111 18 120/66 97 Nasal Cannula Intake and Output 09/11/17 09/12/17 19:00 07:00 Intake Total 250 ml Output Total 600 ml Balance -350 ml IV Total 250 ml Output Urine Total 600 ml # Bowel Movements 1 Laboratory Tests 09/11/17 05:55: White Blood Count 31.3*H, Red Blood Count 3.67L, Hemoglobin 11.5L, Hematocrit 35.6L, Mean Corpuscular Volume 97, Mean Corpuscular Hemoglobin 31.2H, Mean Corpuscular Hemoglobin Concent 32.2, Red Cell Distribution Width 15.1H, Platelet Count 316, Mean Platelet Volume 7.8, Neutrophils (%) (Auto) , Lymphocytes (%) (Auto) , Monocytes (%) (Auto) , Eosinophils (%) (Auto) , Basophils (%) (Auto) , Differential Total Cells Counted 100, Neutrophils % ( Manual) 88H, Lymphocytes % (Manual) 3L, Monocytes % (Manual) 9, Eosinophils % ( Manual) 0, Basophils % (Manual) 0, Band Neutrophils 0, Platelet Estimate Adequate, Platelet Morphology Normal, Anisocytosis 1+, Sodium Level 134L, Potassium Level 5.1, Chloride Level 107, Carbon Dioxide Level 21, Anion Gap 6, Blood Urea Nitrogen 10, Creatinine 1.0, Estimat Glomerular Filtration Rate > 60 , Glucose Level 328H, Calcium Level 7.8L Height (Feet): 5 Height (Inches): 3.00 Weight (Pounds): 158 Objective Thin AA woman NCAT Neck supple Chest: b/l coarse BS RRR soft mild distention and TTP, (+) GT no edema ERIKA ESPINOSA Sep 11, 2017 23:02
[2017-09-12] VITALS (7 sets, daily range): BP systolic 113–144; BP diastolic 65–78
[2017-09-12] MEDS: oxyCODONE HCL/Acetaminophen 5/325mg ORAL PRN ×4 (03:33→23:21)
[2017-09-12] MEDS: Metoclopramide 10mg/2ml Inj IVP SCH ×3 (05:58→23:02)
[2017-09-12] MEDS: D5 1/2NS 1,000 ML IV SCH (05:59)
[2017-09-12] MEDS: NovoLOG Insulin Flexpen SUBQ SCH ×6 (05:59→18:00)
--- NOTE | 2017-09-12 06:29 | General Progress Note ---
Assessment/Plan Problem List: (1) DKA (diabetic ketoacidoses) ICD Codes: E13.10 - Other specified diabetes mellitus with ketoacidosis without coma SNOMED: 76250756, 589126971 (2) Altered level of consciousness ICD Codes: R40.4 - Transient alteration of awareness SNOMED: 5888245 (3) Hyperkalemia ICD Codes: E87.5 - Hyperkalemia SNOMED: 40305776 (4) Rhabdomyolysis ICD Codes: M62.82 - Rhabdomyolysis SNOMED: 845460360, 335517261 (5) Diabetes mellitus out of control ICD Codes: E11.65 - Type 2 diabetes mellitus with hyperglycemia SNOMED: 799280003, 73871513 (6) Sepsis ICD Codes: A41.9 - Sepsis, unspecified organism SNOMED: 08369658 (7) Hypothyroidism ICD Codes: E03.9 - Hypothyroidism, unspecified SNOMED: 75766617 Assessment/Plan hypoglycemic this morning reduce Levemir 8 units bid to qhs change Novolog sliding scale resistant to sensitive scale every 6 hours Continue Levothyroxine to 100 mcg daily - increased from 75 mcg on 09/09/17 repeat TSH in 2 weeks Subjective Allergies: Coded Allergies: No Known Allergies (Unverified , 08/18/17) All Systems: reviewed and negative except above Subjective events noted - interval notes reviewed hypoglycemia this morning Objective Last 24 Hour Vital Signs Date Time Temp Pulse Resp B/P (MAP) Pulse Ox O2 Delivery O2 Flow Rate FiO2 09/12/17 04:37 97.7 73 18 127/67 99 Nasal Cannula 3.5 09/12/17 00:13 97.5 82 18 113/78 95 Nasal Cannula 3.5 09/11/17 20:06 97 Nasal Cannula 3.0 32 09/11/17 20:06 Nasal Cannula 3.0 32 09/11/17 19:36 97.9 82 18 109/61 98 Room Air 09/11/17 15:59 97.3 79 18 132/58 98 Nasal Cannula 2.0 09/11/17 12:00 97.3 81 20 117/59 96 Nasal Cannula 2.0 09/11/17 08:27 82 119/65 09/11/17 08:27 119/65 09/11/17 08:00 97.3 74 18 116/56 94 Nasal Cannula 2.0 Height (Feet): 5 Height (Inches): 3.00 Weight (Pounds): 146 General Appearance: no apparent distress Neck: normal alignment Cardiovascular: normal rate Respiratory/Chest: decreased breath sounds Abdomen: normal bowel sounds Pelvis: normal external exam Edema: 1+ Arm (L), 1+ Arm (R), 1+ Leg (L), 1+ Leg (R), 1+ Pedal (L), 1+ Pedal ( R), 1+ Generalized Objective Current Medications Medications (Trade) Dose Ordered Sig/Adonay Route PRN Reason Start Time Stop Time Status Last Admin Dose Admin Acetaminophen (Tylenol) 650 mg Q6H PRN ORAL Mild Pain/Temp > 100.5 09/09/17 19:00 09/18/17 18:59 09/10/17 20:49 Amlodipine Besylate (Norvasc) 10 mg DAILY NG 09/11/17 09:00 10/11/17 08:59 09/11/17 08:27 Ascorbic Acid (Vitamin C) 500 mg DAILY NG 09/10/17 09:00 09/22/17 08:59 09/11/17 08:27 Cefepime HCl 2 gm/ Sodium Chloride 110 ml @ 220 mls/hr Q24H IVPB 09/11/17 16:00 09/18/17 15:59 09/11/17 16:44 Citalopram Hydrobromide (celeXA) 20 mg DAILY GT 09/10/17 09:00 09/18/17 08:59 09/11/17 08:28 Clonidine HCl (Catapres) 0.1 mg Q6H PRN NG SBP > 160mmHg 09/09/17 13:40 09/22/17 13:39 Dextrose (Dextrose 50%) STAT PRN IV Hypoglycemia 09/11/17 08:30 10/11/17 08:29 09/12/17 05:53 Dextrose/Sodium Chloride 1,000 ml @ 50 mls/hr Q20H IV 09/10/17 14:30 10/10/17 14:29 09/11/17 10:37 Insulin Aspart (NovoLOG) EVERY 6 HOURS SUBQ 09/09/17 18:00 09/19/17 08:59 09/11/17 17:48 Insulin Detemir (Levemir) 8 units BID SUBQ 09/11/17 09:00 10/11/17 08:59 09/11/17 17:47 Lactulose (Cephulac) 30 gm THREE TIMES A DAY GT 09/10/17 10:15 10/10/17 10:14 09/11/17 08:26 Lansoprazole (Prevacid) 30 mg ACBREAKFAST NG 09/10/17 06:30 10/10/17 06:29 09/12/17 05:58 Levothyroxine Sodium (Synthroid) 100 mcg ACBREAKFAST NG 09/10/17 06:30 10/10/17 06:29 09/12/17 05:58 Losartan Potassium (Cozaar) 50 mg DAILY NG 09/10/17 09:00 09/22/17 08:59 09/11/17 08:27 Metoclopramide HCl (Reglan) 10 mg Q8HR IVP 09/10/17 08:45 10/10/17 08:44 09/12/17 05:58 Metronidazole 100 ml @ 100 mls/hr Q8H IVPB 09/10/17 18:00 09/17/17 17:59 09/12/17 02:33 Micafungin Sodium 100 mg/Sodium Chloride 100 ml @ 100 mls/hr Q24H IVPB 09/10/17 15:00 09/17/17 14:59 09/11/17 15:37 Multivitamins (Multivitamins) 1 tab DAILY ORAL 09/10/17 09:00 09/18/17 08:59 09/11/17 08:28 Ondansetron HCl (Zofran) 4 mg Q6H PRN NG Nausea & Vomiting 09/09/17 15:30 09/18/17 07:59 09/10/17 20:49 Oxycodone/ Acetaminophen (Percocet 5-325) 1 tab Q4H PRN ORAL Moderate to Severe Pain (4-10) 09/11/17 17:00 09/18/17 16:59 09/12/17 03:33 Quetiapine Fumarate (SEROquel) 12.5 mg Q12H PRN ORAL Agitation 09/09/17 13:45 09/29/17 13:44 09/10/17 20:49 Vancomycin HCl (Vanco rx to dose) 1 ea DAILY PRN MISC Per rx protocol 09/10/17 09:00 09/27/17 16:14 Vancomycin HCl (Vancomycin) 125 mg FOUR TIMES A DAY ORAL 09/09/17 14:00 09/14/17 13:59 09/11/17 22:19 Vancomycin/Sodium Chloride 250 ml @ 166.667 mls/hr Q24H IVPB 09/10/17 14:00 09/14/17 13:59 09/11/17 14:42 Item Value Date Time Bedside Blood Glucose 55 mg/dl L 09/12/17 0559 Bedside Blood Glucose 97 mg/dl 09/12/17 0000 Bedside Blood Glucose 143 mg/dl H 09/11/17 1748 Bedside Blood Glucose 204 mg/dl H 09/11/17 1230 Bedside Blood Glucose 314 mg/dl H 09/11/17 1040 Bedside Blood Glucose 314 mg/dl H 09/11/17 0555 KAYLEE DARNELL Sep 12, 2017 06:29
--- NOTE | 2017-09-12 06:29 | General Progress Note ---
Assessment/Plan Problem List: (1) DKA (diabetic ketoacidoses) ICD Codes: E13.10 - Other specified diabetes mellitus with ketoacidosis without coma SNOMED: 82259401, 493606321 (2) Altered level of consciousness ICD Codes: R40.4 - Transient alteration of awareness SNOMED: 9589296 (3) Hyperkalemia ICD Codes: E87.5 - Hyperkalemia SNOMED: 42048513 (4) Rhabdomyolysis ICD Codes: M62.82 - Rhabdomyolysis SNOMED: 194710190, 939511474 (5) Diabetes mellitus out of control ICD Codes: E11.65 - Type 2 diabetes mellitus with hyperglycemia SNOMED: 804745226, 97337092 (6) Sepsis ICD Codes: A41.9 - Sepsis, unspecified organism SNOMED: 41357524 (7) Hypothyroidism ICD Codes: E03.9 - Hypothyroidism, unspecified SNOMED: 25638638 Assessment/Plan hypoglycemic this morning reduce Levemir 8 units bid to qhs change Novolog sliding scale resistant to sensitive scale every 6 hours Continue Levothyroxine to 100 mcg daily - increased from 75 mcg on 09/09/17 repeat TSH in 2 weeks Subjective Allergies: Coded Allergies: No Known Allergies (Unverified , 08/18/17) All Systems: reviewed and negative except above Subjective events noted - interval notes reviewed hypoglycemia this morning Objective Last 24 Hour Vital Signs Date Time Temp Pulse Resp B/P (MAP) Pulse Ox O2 Delivery O2 Flow Rate FiO2 09/12/17 04:37 97.7 73 18 127/67 99 Nasal Cannula 3.5 09/12/17 00:13 97.5 82 18 113/78 95 Nasal Cannula 3.5 09/11/17 20:06 97 Nasal Cannula 3.0 32 09/11/17 20:06 Nasal Cannula 3.0 32 09/11/17 19:36 97.9 82 18 109/61 98 Room Air 09/11/17 15:59 97.3 79 18 132/58 98 Nasal Cannula 2.0 09/11/17 12:00 97.3 81 20 117/59 96 Nasal Cannula 2.0 09/11/17 08:27 82 119/65 09/11/17 08:27 119/65 09/11/17 08:00 97.3 74 18 116/56 94 Nasal Cannula 2.0 Height (Feet): 5 Height (Inches): 3.00 Weight (Pounds): 146 General Appearance: no apparent distress Neck: normal alignment Cardiovascular: normal rate Respiratory/Chest: decreased breath sounds Abdomen: normal bowel sounds Pelvis: normal external exam Edema: 1+ Arm (L), 1+ Arm (R), 1+ Leg (L), 1+ Leg (R), 1+ Pedal (L), 1+ Pedal ( R), 1+ Generalized Objective Current Medications Medications (Trade) Dose Ordered Sig/Adonay Route PRN Reason Start Time Stop Time Status Last Admin Dose Admin Acetaminophen (Tylenol) 650 mg Q6H PRN ORAL Mild Pain/Temp > 100.5 09/09/17 19:00 09/18/17 18:59 09/10/17 20:49 Amlodipine Besylate (Norvasc) 10 mg DAILY NG 09/11/17 09:00 10/11/17 08:59 09/11/17 08:27 Ascorbic Acid (Vitamin C) 500 mg DAILY NG 09/10/17 09:00 09/22/17 08:59 09/11/17 08:27 Cefepime HCl 2 gm/ Sodium Chloride 110 ml @ 220 mls/hr Q24H IVPB 09/11/17 16:00 09/18/17 15:59 09/11/17 16:44 Citalopram Hydrobromide (celeXA) 20 mg DAILY GT 09/10/17 09:00 09/18/17 08:59 09/11/17 08:28 Clonidine HCl (Catapres) 0.1 mg Q6H PRN NG SBP > 160mmHg 09/09/17 13:40 09/22/17 13:39 Dextrose (Dextrose 50%) STAT PRN IV Hypoglycemia 09/11/17 08:30 10/11/17 08:29 09/12/17 05:53 Dextrose/Sodium Chloride 1,000 ml @ 50 mls/hr Q20H IV 09/10/17 14:30 10/10/17 14:29 09/11/17 10:37 Insulin Aspart (NovoLOG) EVERY 6 HOURS SUBQ 09/09/17 18:00 09/19/17 08:59 09/11/17 17:48 Insulin Detemir (Levemir) 8 units BID SUBQ 09/11/17 09:00 10/11/17 08:59 09/11/17 17:47 Lactulose (Cephulac) 30 gm THREE TIMES A DAY GT 09/10/17 10:15 10/10/17 10:14 09/11/17 08:26 Lansoprazole (Prevacid) 30 mg ACBREAKFAST NG 09/10/17 06:30 10/10/17 06:29 09/12/17 05:58 Levothyroxine Sodium (Synthroid) 100 mcg ACBREAKFAST NG 09/10/17 06:30 10/10/17 06:29 09/12/17 05:58 Losartan Potassium (Cozaar) 50 mg DAILY NG 09/10/17 09:00 09/22/17 08:59 09/11/17 08:27 Metoclopramide HCl (Reglan) 10 mg Q8HR IVP 09/10/17 08:45 10/10/17 08:44 09/12/17 05:58 Metronidazole 100 ml @ 100 mls/hr Q8H IVPB 09/10/17 18:00 09/17/17 17:59 09/12/17 02:33 Micafungin Sodium 100 mg/Sodium Chloride 100 ml @ 100 mls/hr Q24H IVPB 09/10/17 15:00 09/17/17 14:59 09/11/17 15:37 Multivitamins (Multivitamins) 1 tab DAILY ORAL 09/10/17 09:00 09/18/17 08:59 09/11/17 08:28 Ondansetron HCl (Zofran) 4 mg Q6H PRN NG Nausea & Vomiting 09/09/17 15:30 09/18/17 07:59 09/10/17 20:49 Oxycodone/ Acetaminophen (Percocet 5-325) 1 tab Q4H PRN ORAL Moderate to Severe Pain (4-10) 09/11/17 17:00 09/18/17 16:59 09/12/17 03:33 Quetiapine Fumarate (SEROquel) 12.5 mg Q12H PRN ORAL Agitation 09/09/17 13:45 09/29/17 13:44 09/10/17 20:49 Vancomycin HCl (Vanco rx to dose) 1 ea DAILY PRN MISC Per rx protocol 09/10/17 09:00 09/27/17 16:14 Vancomycin HCl (Vancomycin) 125 mg FOUR TIMES A DAY ORAL 09/09/17 14:00 09/14/17 13:59 09/11/17 22:19 Vancomycin/Sodium Chloride 250 ml @ 166.667 mls/hr Q24H IVPB 09/10/17 14:00 09/14/17 13:59 09/11/17 14:42 Item Value Date Time Bedside Blood Glucose 55 mg/dl L 09/12/17 0559 Bedside Blood Glucose 97 mg/dl 09/12/17 0000 Bedside Blood Glucose 143 mg/dl H 09/11/17 1748 Bedside Blood Glucose 204 mg/dl H 09/11/17 1230 Bedside Blood Glucose 314 mg/dl H 09/11/17 1040 Bedside Blood Glucose 314 mg/dl H 09/11/17 0555 KAYLEE DARNELL Sep 12, 2017 06:29
--- NOTE | 2017-09-12 06:29 | General Progress Note ---
Assessment/Plan Problem List: (1) DKA (diabetic ketoacidoses) ICD Codes: E13.10 - Other specified diabetes mellitus with ketoacidosis without coma SNOMED: 89637500, 051737069 (2) Altered level of consciousness ICD Codes: R40.4 - Transient alteration of awareness SNOMED: 7213725 (3) Hyperkalemia ICD Codes: E87.5 - Hyperkalemia SNOMED: 96358719 (4) Rhabdomyolysis ICD Codes: M62.82 - Rhabdomyolysis SNOMED: 341121393, 240443466 (5) Diabetes mellitus out of control ICD Codes: E11.65 - Type 2 diabetes mellitus with hyperglycemia SNOMED: 269017727, 78988972 (6) Sepsis ICD Codes: A41.9 - Sepsis, unspecified organism SNOMED: 18221278 (7) Hypothyroidism ICD Codes: E03.9 - Hypothyroidism, unspecified SNOMED: 97508389 Assessment/Plan hypoglycemic this morning reduce Levemir 8 units bid to qhs change Novolog sliding scale resistant to sensitive scale every 6 hours Continue Levothyroxine to 100 mcg daily - increased from 75 mcg on 09/09/17 repeat TSH in 2 weeks Subjective Allergies: Coded Allergies: No Known Allergies (Unverified , 08/18/17) All Systems: reviewed and negative except above Subjective events noted - interval notes reviewed hypoglycemia this morning Objective Last 24 Hour Vital Signs Date Time Temp Pulse Resp B/P (MAP) Pulse Ox O2 Delivery O2 Flow Rate FiO2 09/12/17 04:37 97.7 73 18 127/67 99 Nasal Cannula 3.5 09/12/17 00:13 97.5 82 18 113/78 95 Nasal Cannula 3.5 09/11/17 20:06 97 Nasal Cannula 3.0 32 09/11/17 20:06 Nasal Cannula 3.0 32 09/11/17 19:36 97.9 82 18 109/61 98 Room Air 09/11/17 15:59 97.3 79 18 132/58 98 Nasal Cannula 2.0 09/11/17 12:00 97.3 81 20 117/59 96 Nasal Cannula 2.0 09/11/17 08:27 82 119/65 09/11/17 08:27 119/65 09/11/17 08:00 97.3 74 18 116/56 94 Nasal Cannula 2.0 Height (Feet): 5 Height (Inches): 3.00 Weight (Pounds): 146 General Appearance: no apparent distress Neck: normal alignment Cardiovascular: normal rate Respiratory/Chest: decreased breath sounds Abdomen: normal bowel sounds Pelvis: normal external exam Edema: 1+ Arm (L), 1+ Arm (R), 1+ Leg (L), 1+ Leg (R), 1+ Pedal (L), 1+ Pedal ( R), 1+ Generalized Objective Current Medications Medications (Trade) Dose Ordered Sig/Adonay Route PRN Reason Start Time Stop Time Status Last Admin Dose Admin Acetaminophen (Tylenol) 650 mg Q6H PRN ORAL Mild Pain/Temp > 100.5 09/09/17 19:00 09/18/17 18:59 09/10/17 20:49 Amlodipine Besylate (Norvasc) 10 mg DAILY NG 09/11/17 09:00 10/11/17 08:59 09/11/17 08:27 Ascorbic Acid (Vitamin C) 500 mg DAILY NG 09/10/17 09:00 09/22/17 08:59 09/11/17 08:27 Cefepime HCl 2 gm/ Sodium Chloride 110 ml @ 220 mls/hr Q24H IVPB 09/11/17 16:00 09/18/17 15:59 09/11/17 16:44 Citalopram Hydrobromide (celeXA) 20 mg DAILY GT 09/10/17 09:00 09/18/17 08:59 09/11/17 08:28 Clonidine HCl (Catapres) 0.1 mg Q6H PRN NG SBP > 160mmHg 09/09/17 13:40 09/22/17 13:39 Dextrose (Dextrose 50%) STAT PRN IV Hypoglycemia 09/11/17 08:30 10/11/17 08:29 09/12/17 05:53 Dextrose/Sodium Chloride 1,000 ml @ 50 mls/hr Q20H IV 09/10/17 14:30 10/10/17 14:29 09/11/17 10:37 Insulin Aspart (NovoLOG) EVERY 6 HOURS SUBQ 09/09/17 18:00 09/19/17 08:59 09/11/17 17:48 Insulin Detemir (Levemir) 8 units BID SUBQ 09/11/17 09:00 10/11/17 08:59 09/11/17 17:47 Lactulose (Cephulac) 30 gm THREE TIMES A DAY GT 09/10/17 10:15 10/10/17 10:14 09/11/17 08:26 Lansoprazole (Prevacid) 30 mg ACBREAKFAST NG 09/10/17 06:30 10/10/17 06:29 09/12/17 05:58 Levothyroxine Sodium (Synthroid) 100 mcg ACBREAKFAST NG 09/10/17 06:30 10/10/17 06:29 09/12/17 05:58 Losartan Potassium (Cozaar) 50 mg DAILY NG 09/10/17 09:00 09/22/17 08:59 09/11/17 08:27 Metoclopramide HCl (Reglan) 10 mg Q8HR IVP 09/10/17 08:45 10/10/17 08:44 09/12/17 05:58 Metronidazole 100 ml @ 100 mls/hr Q8H IVPB 09/10/17 18:00 09/17/17 17:59 09/12/17 02:33 Micafungin Sodium 100 mg/Sodium Chloride 100 ml @ 100 mls/hr Q24H IVPB 09/10/17 15:00 09/17/17 14:59 09/11/17 15:37 Multivitamins (Multivitamins) 1 tab DAILY ORAL 09/10/17 09:00 09/18/17 08:59 09/11/17 08:28 Ondansetron HCl (Zofran) 4 mg Q6H PRN NG Nausea & Vomiting 09/09/17 15:30 09/18/17 07:59 09/10/17 20:49 Oxycodone/ Acetaminophen (Percocet 5-325) 1 tab Q4H PRN ORAL Moderate to Severe Pain (4-10) 09/11/17 17:00 09/18/17 16:59 09/12/17 03:33 Quetiapine Fumarate (SEROquel) 12.5 mg Q12H PRN ORAL Agitation 09/09/17 13:45 09/29/17 13:44 09/10/17 20:49 Vancomycin HCl (Vanco rx to dose) 1 ea DAILY PRN MISC Per rx protocol 09/10/17 09:00 09/27/17 16:14 Vancomycin HCl (Vancomycin) 125 mg FOUR TIMES A DAY ORAL 09/09/17 14:00 09/14/17 13:59 09/11/17 22:19 Vancomycin/Sodium Chloride 250 ml @ 166.667 mls/hr Q24H IVPB 09/10/17 14:00 09/14/17 13:59 09/11/17 14:42 Item Value Date Time Bedside Blood Glucose 55 mg/dl L 09/12/17 0559 Bedside Blood Glucose 97 mg/dl 09/12/17 0000 Bedside Blood Glucose 143 mg/dl H 09/11/17 1748 Bedside Blood Glucose 204 mg/dl H 09/11/17 1230 Bedside Blood Glucose 314 mg/dl H 09/11/17 1040 Bedside Blood Glucose 314 mg/dl H 09/11/17 0555 KAYLEE DARNELL Sep 12, 2017 06:29
[2017-09-12 07:05] LABS: ALANINE AMINOTRANSFERASE 9 U/L (12-78); ALBUMIN 0.7 G/DL (3.4-5.0); ALBUMIN/GLOBULIN RATIO 0.2 (1.0-2.7); ALKALINE PHOSPHATASE 148 U/L (46-116); ANION GAP 8 mmol/L (5-15); ASPARTATE AMINO TRANSFERASE 26 U/L (15-37); BILIRUBIN,TOTAL 0.2 MG/DL (0.2-1.0); BLOOD UREA NITROGEN 12 mg/dL (7-18); CALCIUM 7.5 MG/DL (8.5-10.1); CARBON DIOXIDE 19 MMOL/L (21-32); CHLORIDE 110 MMOL/L (98-107); CREATININE 0.8 MG/DL (0.55-1.30); POTASSIUM 4.8 MMOL/L (3.5-5.1); SODIUM 137 MMOL/L (136-145)
[2017-09-12 07:10] LABS: HEMATOCRIT 35.9 % (37.0-47.0); HEMOGLOBIN 12.1 G/DL (12.0-16.0); MEAN CORPUSCULAR VOLUME 96 FL (80-99); PLATELET COUNT 342 K/UL (150-450); RED BLOOD COUNT 3.73 M/UL (4.20-5.40); RED CELL DISTRIBUTION WIDTH 15.2 % (11.6-14.8)
[2017-09-12 07:27] LABS: WHITE BLOOD COUNT 30.4 K/UL (4.8-10.8)
[2017-09-12] MEDS: Lactulose 20gm/30ml UDC GT SCH ×3 (09:00→17:57)
[2017-09-12] MEDS: Ascorbic Acid 500mg tab NG SCH (09:15)
[2017-09-12] MEDS: Citalopram Hydrobromide 10mg Tab GT SCH (09:15)
[2017-09-12] MEDS: Losartan 50mg tab NG SCH (09:15)
[2017-09-12] MEDS: Vancomycin oral 125mg/2.5ml ORAL SCH ×4 (09:23→23:01)
[2017-09-12] MEDS: Vancomycin 750mg/NS 250ml 250 ML IVPB SCH (13:33)
--- NOTE | 2017-09-12 14:30 | Infectious Diseases Prog Note ---
Assessment/Plan Assessment/Plan ASSESSMENT AND PLAN: 1. sepsis, klebsiella uti, possible pna, worsening leukocytosis and hx fevers, ? c.diff., s/p g-tube, dwight glabrata fungal uti, fungemia, ct without abscess - check f/u cultures, check sc, check surveillance blood cultures, check c.diff. - cefepime, iv/po vanco, flagyl, micafungin - check labs, check chest x-ray - surgery note reviewed - no decubitus infection, no abscess on aspiration - consider indium scan if no improvement 2. The patient has history of diabetes. 3. Hypertension. 4. Anemia, hypernatremia 5. Respiratory insufficiency. 6. Blood sugar and blood pressure control per primary. 7. Diabetic ketoacidosis. 8. History of anxiety. 9. Depression. 10. Dementia. 11. Chronic pain syndrome. 12. Aspiration risk. 13. Altered mental status. 14. Poor historian. 15. No known allergies. 16. Social history is negative. 17. Family history is noncontributory. 18. MAR was noted. 19. Case was discussed with RN. 20. Notes and records were noted. 21. Skin care protocol. 22. I have reviewed the wounds. I do not think this is her source of sepsis. Continue local wound care protocol. wc - likely colonizer. 23. Continue treatment per Dr. Winn. Subjective Constitutional: Denies: fever HEENT: Reports: congestion - minimal Respiratory: Reports: shortness of breath - minimal Cardiovascular: Denies: chest pain Gastrointestinal/Abdominal: Denies: nausea, vomiting, diarrhea Genitourinary: Reports: other - + rowe Neurologic: Denies: headache Psychiatric: Denies: depression Skin: Denies: rash Musculoskeletal: Denies: pain Allergies: Coded Allergies: No Known Allergies (Unverified , 08/18/17) Objective Vital Signs Last 24 Hour Vital Signs Date Time Temp Pulse Resp B/P (MAP) Pulse Ox O2 Delivery O2 Flow Rate FiO2 09/12/17 12:30 98.1 75 20 126/65 98 Nasal Cannula 3.0 09/12/17 09:15 119/73 09/12/17 09:00 80 119/73 09/12/17 08:20 98.2 80 20 119/73 98 Nasal Cannula 3.0 09/12/17 04:37 97.7 73 18 127/67 99 Nasal Cannula 3.5 09/12/17 00:13 97.5 82 18 113/78 95 Nasal Cannula 3.5 09/11/17 20:06 97 Nasal Cannula 3.0 32 09/11/17 20:06 Nasal Cannula 3.0 32 09/11/17 19:36 97.9 82 18 109/61 98 Room Air 09/11/17 15:59 97.3 79 18 132/58 98 Nasal Cannula 2.0 Height (Feet): 5 Height (Inches): 3.00 Weight (Pounds): 146 General Appearance: no acute distress HEENT: normocephalic, atraumatic, anicteric, mucous membranes moist, PERRL, EOMI, pharynx normal, supple, no JVD Respiratory/Chest: no accessory muscle use, decreased breath sounds, crackles/ rales, rhonchi - bilaterally Cardiovascular: normal rate, regular rhythm, no gallop/murmur, no JVD Abdomen: normal bowel sounds, soft, non tender, no organomegaly, non distended Genitourinary: other - + rowe - urine clearer Extremities: no cyanosis Skin: no rash Neurologic/Psychiatric: quality assurance monitor chassis [id number] grossly normal, alert, responsive, other - + generalized weakness Lymphatic: no neck adenopathy Musculoskeletal: no effusion Objective 08/29 chest x-ray: Findings: Again demonstrated is diffuse interstitial edema, likely superimposed on chronic background interstitial fibrotic change, appearing stable there is a more nodular component on the left on the right. The pleural spaces are clear. The heart size is normal. There is a nasogastric tube again demonstrated. Left shoulder hardware is again demonstrated 09/01 - chest x-ray: Impression: Unchanged, over one day, findings as above. Findings: Interstitial opacities again appear prominent bilaterally. Heart size is stable. NG tube is noted and in good position. Impression: No radiographic change. Interstitial opacities nonspecific 09/04 - chest x-ray: Comparison: 09/01/2017 Findings: Bilateral diffuse interstitial and alveolar disease is unchanged. The heart size is normal. Pleural spaces are clear Impression: Unchanged, over 3 days, findings as above. CT abdomen and pelvis: Impression: Small amount of free air in the anterior epigastric region likely related to recent gastrostomy placement. Gastrostomy in good position. Basilar reticular lung disease, nonspecific. Left basilar pneumonia versus atelectasis. Please correlate clinically. Atherosclerotic disease Rowe catheter in good position. Breathing motion artifact. Anasarca. Trace ascites 09/11- chest x-ray: Impression: Bilateral diffuse interstitial disease. Suspect mostly chronic, but there is possibly new or increased acute component in the retrocardiac region. Suspect small bilateral pleural effusions Microbiology Date/Time Source Procedure Growth Status 09/07/17 20:00 Blood Blood Culture - Preliminary Resulted 09/07/17 22:00 Sputum Induced Gram Stain - Final Resulted 09/07/17 22:00 Sputum Culture - Preliminary Gram Positive Cocci Usual Upper Respiratory Bertha Resulted 08/30/17 18:30 Stool Clostridium difficile Toxin Assay - Final Complete 09/07/17 19:00 Indwelling Cath Urine Culture - Final NO GROWTH AFTER 48 HOURS Complete 08/19/17 07:00 Buttock Left Gram Stain - Final Complete 08/19/17 07:00 Wound Culture - Final Staphylococcus Sp Coag Neg Diphtheroids Complete Laboratory Tests Test 09/12/17 05:45 White Blood Count 30.4 K/UL (4.8-10.8) *H Red Blood Count 3.73 M/UL (4.20-5.40) L Hemoglobin 12.1 G/DL (12.0-16.0) Hematocrit 35.9 % (37.0-47.0) L Mean Corpuscular Volume 96 FL (80-99) Mean Corpuscular Hemoglobin 32.5 PG (27.0-31.0) H Mean Corpuscular Hemoglobin Concent 33.7 G/DL (32.0-36.0) Red Cell Distribution Width 15.2 % (11.6-14.8) H Platelet Count 342 K/UL (150-450) Mean Platelet Volume 7.3 FL (6.5-10.1) Neutrophils (%) (Auto) % (45.0-75.0) Lymphocytes (%) (Auto) % (20.0-45.0) Monocytes (%) (Auto) % (1.0-10.0) Eosinophils (%) (Auto) % (0.0-3.0) Basophils (%) (Auto) % (0.0-2.0) Differential Total Cells Counted 100 Neutrophils % (Manual) 90 % (45-75) H Lymphocytes % (Manual) 5 % (20-45) L Monocytes % (Manual) 5 % (1-10) Eosinophils % (Manual) 0 % (0-3) Basophils % (Manual) 0 % (0-2) Band Neutrophils 0 % (0-8) Platelet Estimate Adequate Platelet Morphology Normal Anisocytosis 1+ Sodium Level 137 MMOL/L (136-145) Potassium Level 4.8 MMOL/L (3.5-5.1) Chloride Level 110 MMOL/L (98-107) H Carbon Dioxide Level 19 MMOL/L (21-32) L Anion Gap 8 mmol/L (5-15) Blood Urea Nitrogen 12 mg/dL (7-18) Creatinine 0.8 MG/DL (0.55-1.30) Estimat Glomerular Filtration Rate > 60 mL/min (>60) Glucose Level 49 MG/DL (74-106) #L Calcium Level 7.5 MG/DL (8.5-10.1) L Total Bilirubin 0.2 MG/DL (0.2-1.0) Aspartate Amino Transf (AST/SGOT) 26 U/L (15-37) Alanine Aminotransferase (ALT/SGPT) 9 U/L (12-78) L Alkaline Phosphatase 148 U/L (46-116) H Total Protein 5.0 G/DL (6.4-8.2) L Albumin 0.7 G/DL (3.4-5.0) L Globulin 4.3 g/dL Albumin/Globulin Ratio 0.2 (1.0-2.7) L Current Medications Medications (Trade) Dose Ordered Sig/Adonay Route PRN Reason Start Time Stop Time Status Last Admin Dose Admin Acetaminophen (Tylenol) 650 mg Q6H PRN ORAL Mild Pain/Temp > 100.5 09/09/17 19:00 09/18/17 18:59 09/10/17 20:49 Amlodipine Besylate (Norvasc) 10 mg DAILY NG 09/11/17 09:00 10/11/17 08:59 09/11/17 08:27 Ascorbic Acid (Vitamin C) 500 mg DAILY NG 09/10/17 09:00 09/22/17 08:59 09/12/17 09:15 Cefepime HCl 2 gm/ Sodium Chloride 110 ml @ 220 mls/hr Q24H IVPB 09/11/17 16:00 09/18/17 15:59 09/11/17 16:44 Citalopram Hydrobromide (celeXA) 20 mg DAILY GT 09/10/17 09:00 09/18/17 08:59 09/12/17 09:15 Clonidine HCl (Catapres) 0.1 mg Q6H PRN NG SBP > 160mmHg 09/09/17 13:40 09/22/17 13:39 Dextrose (Dextrose 50%) STAT PRN IV Hypoglycemia 09/11/17 08:30 10/11/17 08:29 09/12/17 05:53 Dextrose (Dextrose 50%) STAT PRN IV Hypoglycemia 09/12/17 06:30 10/12/17 06:29 Dextrose/Sodium Chloride 1,000 ml @ 50 mls/hr Q20H IV 09/10/17 14:30 10/10/17 14:29 09/11/17 10:37 Insulin Aspart (NovoLOG) EVERY 6 HOURS SUBQ 09/12/17 06:30 10/12/17 06:29 Insulin Detemir (Levemir) 8 units QHS SUBQ 09/12/17 21:00 10/11/17 08:59 Lactulose (Cephulac) 30 gm THREE TIMES A DAY GT 09/10/17 10:15 10/10/17 10:14 09/11/17 08:26 Lansoprazole (Prevacid) 30 mg ACBREAKFAST NG 09/10/17 06:30 10/10/17 06:29 09/12/17 05:58 Levothyroxine Sodium (Synthroid) 100 mcg ACBREAKFAST NG 09/10/17 06:30 10/10/17 06:29 09/12/17 05:58 Losartan Potassium (Cozaar) 50 mg DAILY NG 09/10/17 09:00 09/22/17 08:59 09/12/17 09:15 Metoclopramide HCl (Reglan) 10 mg Q8HR IVP 09/10/17 08:45 10/10/17 08:44 09/12/17 13:33 Metronidazole 100 ml @ 100 mls/hr Q8H IVPB 09/10/17 18:00 09/17/17 17:59 09/12/17 09:24 Micafungin Sodium 100 mg/Sodium Chloride 100 ml @ 100 mls/hr Q24H IVPB 09/10/17 15:00 09/17/17 14:59 09/11/17 15:37 Multivitamins (Multivitamins) 1 tab DAILY ORAL 09/10/17 09:00 09/18/17 08:59 09/12/17 09:15 Ondansetron HCl (Zofran) 4 mg Q6H PRN NG Nausea & Vomiting 09/09/17 15:30 09/18/17 07:59 09/10/17 20:49 Oxycodone/ Acetaminophen (Percocet 5-325) 1 tab Q4H PRN ORAL Moderate to Severe Pain (4-10) 09/11/17 17:00 09/18/17 16:59 09/12/17 03:33 Quetiapine Fumarate (SEROquel) 12.5 mg Q12H PRN ORAL Agitation 09/09/17 13:45 09/29/17 13:44 09/10/17 20:49 Vancomycin HCl (Vanco rx to dose) 1 ea DAILY PRN MISC Per rx protocol 09/10/17 09:00 09/27/17 16:14 Vancomycin HCl (Vancomycin) 125 mg FOUR TIMES A DAY ORAL 09/09/17 14:00 09/14/17 13:59 09/12/17 13:33 Vancomycin/Sodium Chloride 250 ml @ 166.667 mls/hr Q24H IVPB 09/10/17 14:00 09/14/17 13:59 09/12/17 13:33 YASIR RUEDA Sep 12, 2017 14:30
--- NOTE | 2017-09-12 15:03 | General Progress Note ---
Progress Note Progress Note Surgery: no acute events. still with high leukocytosis today. wounds evaluated at bedside and unchanged. no signs of active infection from decubitus ulcers. will follow and monitor wounds. Leopoldo Davila Sep 12, 2017 15:03
--- NOTE | 2017-09-12 15:06 | Pulmonology Progress Note ---
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 DM rx per Dr Andrade Xray R wrist swallow eval labs reviewed disc w RN Subjective Allergies: Coded Allergies: No Known Allergies (Unverified , 08/18/17) Subjective pain all over R wrist pain Objective Last 24 Hour Vital Signs Date Time Temp Pulse Resp B/P (MAP) Pulse Ox O2 Delivery O2 Flow Rate FiO2 09/12/17 12:30 98.1 75 20 126/65 98 Nasal Cannula 3.0 09/12/17 09:15 119/73 09/12/17 09:00 80 119/73 09/12/17 08:20 98.2 80 20 119/73 98 Nasal Cannula 3.0 09/12/17 04:37 97.7 73 18 127/67 99 Nasal Cannula 3.5 09/12/17 00:13 97.5 82 18 113/78 95 Nasal Cannula 3.5 09/11/17 20:06 97 Nasal Cannula 3.0 32 09/11/17 20:06 Nasal Cannula 3.0 32 09/11/17 19:36 97.9 82 18 109/61 98 Room Air 09/11/17 15:59 97.3 79 18 132/58 98 Nasal Cannula 2.0 Intake and Output 09/12/17 09/13/17 19:00 07:00 Intake Total 250 ml Balance 250 ml IV Total 250 ml Objective G tube, R wrist red, tender General Appearance: no acute distress, cachetic Respiratory/Chest: lungs clear Cardiovascular: normal rate Abdomen: soft, non tender Laboratory Tests 09/12/17 05:45: White Blood Count 30.4*H, Red Blood Count 3.73L, Hemoglobin 12.1, Hematocrit 35.9L, Mean Corpuscular Volume 96, Mean Corpuscular Hemoglobin 32.5H, Mean Corpuscular Hemoglobin Concent 33.7, Red Cell Distribution Width 15.2H, Platelet Count 342, Mean Platelet Volume 7.3, Neutrophils (%) (Auto) , Lymphocytes (%) (Auto) , Monocytes (%) (Auto) , Eosinophils (%) (Auto) , Basophils (%) (Auto) , Differential Total Cells Counted 100, Neutrophils % ( Manual) 90H, Lymphocytes % (Manual) 5L, Monocytes % (Manual) 5, Eosinophils % ( Manual) 0, Basophils % (Manual) 0, Band Neutrophils 0, Platelet Estimate Adequate, Platelet Morphology Normal, Anisocytosis 1+, Sodium Level 137, Potassium Level 4.8, Chloride Level 110H, Carbon Dioxide Level 19L, Anion Gap 8 , Blood Urea Nitrogen 12, Creatinine 0.8, Estimat Glomerular Filtration Rate > 60, Glucose Level 49#L, Calcium Level 7.5L, Total Bilirubin 0.2, Aspartate Amino Transf (AST/SGOT) 26, Alanine Aminotransferase (ALT/SGPT) 9L, Alkaline Phosphatase 148H, Total Protein 5.0L, Albumin 0.7L, Globulin 4.3, Albumin/ Globulin Ratio 0.2L Current Medications Medications (Trade) Dose Ordered Sig/Adonay Route PRN Reason Start Time Stop Time Status Last Admin Dose Admin Acetaminophen (Tylenol) 650 mg Q6H PRN ORAL Mild Pain/Temp > 100.5 09/09/17 19:00 09/18/17 18:59 09/10/17 20:49 Amlodipine Besylate (Norvasc) 10 mg DAILY NG 09/11/17 09:00 10/11/17 08:59 09/11/17 08:27 Ascorbic Acid (Vitamin C) 500 mg DAILY NG 09/10/17 09:00 09/22/17 08:59 09/12/17 09:15 Cefepime HCl 2 gm/ Sodium Chloride 110 ml @ 220 mls/hr Q24H IVPB 09/11/17 16:00 09/18/17 15:59 09/11/17 16:44 Citalopram Hydrobromide (celeXA) 20 mg DAILY GT 09/10/17 09:00 09/18/17 08:59 09/12/17 09:15 Clonidine HCl (Catapres) 0.1 mg Q6H PRN NG SBP > 160mmHg 09/09/17 13:40 09/22/17 13:39 Dextrose (Dextrose 50%) STAT PRN IV Hypoglycemia 09/12/17 06:30 10/12/17 06:29 Dextrose/Sodium Chloride 1,000 ml @ 50 mls/hr Q20H IV 09/10/17 14:30 10/10/17 14:29 09/11/17 10:37 Insulin Aspart (NovoLOG) EVERY 6 HOURS SUBQ 09/12/17 06:30 10/12/17 06:29 Insulin Detemir (Levemir) 8 units QHS SUBQ 09/12/17 21:00 10/11/17 08:59 Lactulose (Cephulac) 30 gm THREE TIMES A DAY GT 09/10/17 10:15 10/10/17 10:14 09/11/17 08:26 Lansoprazole (Prevacid) 30 mg ACBREAKFAST NG 09/10/17 06:30 10/10/17 06:29 09/12/17 05:58 Levothyroxine Sodium (Synthroid) 100 mcg ACBREAKFAST NG 09/10/17 06:30 10/10/17 06:29 09/12/17 05:58 Losartan Potassium (Cozaar) 50 mg DAILY NG 09/10/17 09:00 09/22/17 08:59 09/12/17 09:15 Metoclopramide HCl (Reglan) 10 mg Q8HR IVP 09/10/17 08:45 10/10/17 08:44 09/12/17 13:33 Metronidazole 100 ml @ 100 mls/hr Q8H IVPB 09/10/17 18:00 09/17/17 17:59 09/12/17 09:24 Micafungin Sodium 100 mg/Sodium Chloride 100 ml @ 100 mls/hr Q24H IVPB 09/10/17 15:00 09/17/17 14:59 09/11/17 15:37 Multivitamins (Multivitamins) 1 tab DAILY ORAL 09/10/17 09:00 09/18/17 08:59 09/12/17 09:15 Ondansetron HCl (Zofran) 4 mg Q6H PRN NG Nausea & Vomiting 09/09/17 15:30 09/18/17 07:59 09/10/17 20:49 Oxycodone/ Acetaminophen (Percocet 5-325) 1 tab Q4H PRN ORAL Moderate to Severe Pain (4-10) 09/11/17 17:00 09/18/17 16:59 09/12/17 14:33 Quetiapine Fumarate (SEROquel) 12.5 mg Q12H PRN ORAL Agitation 09/09/17 13:45 09/29/17 13:44 09/10/17 20:49 Vancomycin HCl (Vanco rx to dose) 1 ea DAILY PRN MISC Per rx protocol 09/10/17 09:00 09/27/17 16:14 Vancomycin HCl (Vancomycin) 125 mg FOUR TIMES A DAY ORAL 09/12/17 18:00 09/17/17 17:59 Vancomycin/Sodium Chloride 250 ml @ 166.667 mls/hr Q24H IVPB 09/13/17 14:00 09/17/17 13:59 PATRICIA LUGO Sep 12, 2017 15:06
[2017-09-12] MEDS: Cefepime HCl 2 GM in NS 110 ML IVPB SCH (17:57)
--- NOTE | 2017-09-12 19:07 | General Progress Note ---
Assessment/Plan Status: stable, progressing Assessment/Plan agitated at times much improved Subjective Neurologic/Psychiatric: Reports: anxiety, depressed, emotional problems Allergies: Coded Allergies: No Known Allergies (Unverified , 08/18/17) Subjective calm no agitation Objective Last 24 Hour Vital Signs Date Time Temp Pulse Resp B/P (MAP) Pulse Ox O2 Delivery O2 Flow Rate FiO2 09/12/17 16:05 98.4 82 20 120/68 98 Nasal Cannula 3.0 09/12/17 12:30 98.1 75 20 126/65 98 Nasal Cannula 3.0 09/12/17 09:15 119/73 09/12/17 09:00 80 119/73 09/12/17 08:20 98.2 80 20 119/73 98 Nasal Cannula 3.0 09/12/17 08:00 Nasal Cannula 3.0 32 09/12/17 08:00 98 Nasal Cannula 3.0 32 09/12/17 04:37 97.7 73 18 127/67 99 Nasal Cannula 3.5 09/12/17 00:13 97.5 82 18 113/78 95 Nasal Cannula 3.5 09/11/17 20:06 97 Nasal Cannula 3.0 32 09/11/17 20:06 Nasal Cannula 3.0 32 09/11/17 19:36 97.9 82 18 109/61 98 Room Air Intake and Output 09/12/17 09/13/17 19:00 07:00 Intake Total 600 ml Output Total 700 ml Balance -100 ml Free Water 150 ml IV Total 250 ml Tube Feeding 200 ml Output Urine Total 700 ml Laboratory Tests 09/12/17 05:45: White Blood Count 30.4*H, Red Blood Count 3.73L, Hemoglobin 12.1, Hematocrit 35.9L, Mean Corpuscular Volume 96, Mean Corpuscular Hemoglobin 32.5H, Mean Corpuscular Hemoglobin Concent 33.7, Red Cell Distribution Width 15.2H, Platelet Count 342, Mean Platelet Volume 7.3, Neutrophils (%) (Auto) , Lymphocytes (%) (Auto) , Monocytes (%) (Auto) , Eosinophils (%) (Auto) , Basophils (%) (Auto) , Differential Total Cells Counted 100, Neutrophils % ( Manual) 90H, Lymphocytes % (Manual) 5L, Monocytes % (Manual) 5, Eosinophils % ( Manual) 0, Basophils % (Manual) 0, Band Neutrophils 0, Platelet Estimate Adequate, Platelet Morphology Normal, Anisocytosis 1+, Sodium Level 137, Potassium Level 4.8, Chloride Level 110H, Carbon Dioxide Level 19L, Anion Gap 8 , Blood Urea Nitrogen 12, Creatinine 0.8, Estimat Glomerular Filtration Rate > 60, Glucose Level 49#L, Calcium Level 7.5L, Total Bilirubin 0.2, Aspartate Amino Transf (AST/SGOT) 26, Alanine Aminotransferase (ALT/SGPT) 9L, Alkaline Phosphatase 148H, Total Protein 5.0L, Albumin 0.7L, Globulin 4.3, Albumin/ Globulin Ratio 0.2L Height (Feet): 5 Height (Inches): 3.00 Weight (Pounds): 146 General Appearance: no apparent distress, alert Neurologic: alert, oriented x 3, responsive, depressed affect Audi Bonilla M.D. Sep 12, 2017 19:07
--- NOTE | 2017-09-12 19:57 | General Progress Note ---
Assessment/Plan Assessment/Plan Assessment - Respiratory failure - leukocytosis - Anemia - tube feed intolerance - IDDM - s/p PEG Recommendations - Advance feeds - monitor residuals - GT care - Elevate HOB - abx Subjective Allergies: Coded Allergies: No Known Allergies (Unverified , 08/18/17) Subjective above noted s/p PEG - POD #8 now on reglan TF running Objective Last 24 Hour Vital Signs Date Time Temp Pulse Resp B/P (MAP) Pulse Ox O2 Delivery O2 Flow Rate FiO2 09/12/17 16:05 98.4 82 20 120/68 98 Nasal Cannula 3.0 09/12/17 12:30 98.1 75 20 126/65 98 Nasal Cannula 3.0 09/12/17 09:15 119/73 09/12/17 09:00 80 119/73 09/12/17 08:20 98.2 80 20 119/73 98 Nasal Cannula 3.0 09/12/17 08:00 Nasal Cannula 3.0 32 09/12/17 08:00 98 Nasal Cannula 3.0 32 09/12/17 04:37 97.7 73 18 127/67 99 Nasal Cannula 3.5 09/12/17 00:13 97.5 82 18 113/78 95 Nasal Cannula 3.5 09/11/17 20:06 97 Nasal Cannula 3.0 32 09/11/17 20:06 Nasal Cannula 3.0 32 Intake and Output 09/12/17 09/13/17 19:00 07:00 Intake Total 810 ml Output Total 700 ml Balance 110 ml Free Water 150 ml IV Total 460 ml Tube Feeding 200 ml Output Urine Total 700 ml Laboratory Tests 09/12/17 05:45: White Blood Count 30.4*H, Red Blood Count 3.73L, Hemoglobin 12.1, Hematocrit 35.9L, Mean Corpuscular Volume 96, Mean Corpuscular Hemoglobin 32.5H, Mean Corpuscular Hemoglobin Concent 33.7, Red Cell Distribution Width 15.2H, Platelet Count 342, Mean Platelet Volume 7.3, Neutrophils (%) (Auto) , Lymphocytes (%) (Auto) , Monocytes (%) (Auto) , Eosinophils (%) (Auto) , Basophils (%) (Auto) , Differential Total Cells Counted 100, Neutrophils % ( Manual) 90H, Lymphocytes % (Manual) 5L, Monocytes % (Manual) 5, Eosinophils % ( Manual) 0, Basophils % (Manual) 0, Band Neutrophils 0, Platelet Estimate Adequate, Platelet Morphology Normal, Anisocytosis 1+, Sodium Level 137, Potassium Level 4.8, Chloride Level 110H, Carbon Dioxide Level 19L, Anion Gap 8 , Blood Urea Nitrogen 12, Creatinine 0.8, Estimat Glomerular Filtration Rate > 60, Glucose Level 49#L, Calcium Level 7.5L, Total Bilirubin 0.2, Aspartate Amino Transf (AST/SGOT) 26, Alanine Aminotransferase (ALT/SGPT) 9L, Alkaline Phosphatase 148H, Total Protein 5.0L, Albumin 0.7L, Globulin 4.3, Albumin/ Globulin Ratio 0.2L Height (Feet): 5 Height (Inches): 3.00 Weight (Pounds): 146 Objective Thin AA woman NCAT Neck supple Chest: b/l coarse BS RRR soft mild distention and TTP, (+) GT ERIKA ESPINOSA Sep 12, 2017 19:57
[2017-09-12] MEDS: Levemir Flexpen SUBQ SCH (23:06)
[2017-09-13] MEDS: D5 1/2NS 1,000 ML IV SCH ×2 (02:31→23:45)
[2017-09-13 04:04] VITALS: BP 110/67
[2017-09-13] MEDS: NovoLOG Insulin Flexpen SUBQ SCH ×5 (06:00→23:45)
--- NOTE | 2017-09-13 06:19 | General Progress Note ---
Assessment/Plan Problem List: (1) DKA (diabetic ketoacidoses) ICD Codes: E13.10 - Other specified diabetes mellitus with ketoacidosis without coma SNOMED: 00982520, 994443645 (2) Altered level of consciousness ICD Codes: R40.4 - Transient alteration of awareness SNOMED: 5593615 (3) Hyperkalemia ICD Codes: E87.5 - Hyperkalemia SNOMED: 75693230 (4) Rhabdomyolysis ICD Codes: M62.82 - Rhabdomyolysis SNOMED: 213796393, 739009327 (5) Diabetes mellitus out of control ICD Codes: E11.65 - Type 2 diabetes mellitus with hyperglycemia SNOMED: 155798704, 11625101 (6) Sepsis ICD Codes: A41.9 - Sepsis, unspecified organism SNOMED: 69138114 (7) Hypothyroidism ICD Codes: E03.9 - Hypothyroidism, unspecified SNOMED: 06208396 Assessment/Plan no recurrence of hypoglycemia continue Levemir 8 units qhs continue Novolog sliding scale sensitive scale every 6 hours Continue Levothyroxine to 100 mcg daily - increased from 75 mcg on 09/09/17 repeat TSH in 2 weeks Subjective ROS Limited/Unobtainable: No Allergies: Coded Allergies: No Known Allergies (Unverified , 08/18/17) Subjective events noted - interval notes reviewed hypoglycemia this morning Objective Last 24 Hour Vital Signs Date Time Temp Pulse Resp B/P (MAP) Pulse Ox O2 Delivery O2 Flow Rate FiO2 09/13/17 04:04 97.3 67 18 110/67 95 Nasal Cannula 2.0 09/12/17 23:44 97.3 78 18 144/77 98 Nasal Cannula 09/12/17 21:14 Nasal Cannula 3.0 32 09/12/17 21:14 95 Nasal Cannula 3.0 32 09/12/17 20:26 96.4 78 18 125/70 95 Nasal Cannula 09/12/17 16:05 98.4 82 20 120/68 98 Nasal Cannula 3.0 09/12/17 12:30 98.1 75 20 126/65 98 Nasal Cannula 3.0 09/12/17 09:15 119/73 09/12/17 09:00 80 119/73 09/12/17 08:20 98.2 80 20 119/73 98 Nasal Cannula 3.0 09/12/17 08:00 Nasal Cannula 3.0 32 09/12/17 08:00 98 Nasal Cannula 3.0 32 Height (Feet): 5 Height (Inches): 3.00 Weight (Pounds): 146 General Appearance: no apparent distress EENT: pale conjunctivae Neck: normal alignment Cardiovascular: normal rate Respiratory/Chest: lungs clear Abdomen: normal bowel sounds Edema: no edema noted Arm (L), no edema noted Arm (R), no edema noted Leg (L), no edema noted Leg (R), no edema noted Pedal (L), no edema noted Pedal (R), no edema noted Generalized Objective Current Medications Medications (Trade) Dose Ordered Sig/Adonay Route PRN Reason Start Time Stop Time Status Last Admin Dose Admin Acetaminophen (Tylenol) 650 mg Q6H PRN ORAL Mild Pain/Temp > 100.5 09/09/17 19:00 09/18/17 18:59 09/10/17 20:49 Amlodipine Besylate (Norvasc) 10 mg DAILY NG 09/11/17 09:00 10/11/17 08:59 09/11/17 08:27 Ascorbic Acid (Vitamin C) 500 mg DAILY NG 09/10/17 09:00 09/22/17 08:59 09/12/17 09:15 Cefepime HCl 2 gm/ Sodium Chloride 110 ml @ 220 mls/hr Q24H IVPB 09/11/17 16:00 09/18/17 15:59 09/12/17 17:57 Citalopram Hydrobromide (celeXA) 20 mg DAILY GT 09/10/17 09:00 09/18/17 08:59 09/12/17 09:15 Clonidine HCl (Catapres) 0.1 mg Q6H PRN NG SBP > 160mmHg 09/09/17 13:40 09/22/17 13:39 Dextrose (Dextrose 50%) STAT PRN IV Hypoglycemia 09/12/17 06:30 10/12/17 06:29 Dextrose/Sodium Chloride 1,000 ml @ 50 mls/hr Q20H IV 09/10/17 14:30 10/10/17 14:29 09/13/17 02:31 Insulin Aspart (NovoLOG) EVERY 6 HOURS SUBQ 09/12/17 06:30 10/12/17 06:29 09/13/17 00:00 Insulin Detemir (Levemir) 8 units QHS SUBQ 09/12/17 21:00 10/11/17 08:59 09/12/17 23:06 Lactulose (Cephulac) 30 gm THREE TIMES A DAY GT 09/10/17 10:15 10/10/17 10:14 09/11/17 08:26 Lansoprazole (Prevacid) 30 mg ACBREAKFAST NG 09/10/17 06:30 10/10/17 06:29 09/12/17 05:58 Levothyroxine Sodium (Synthroid) 100 mcg ACBREAKFAST NG 09/10/17 06:30 10/10/17 06:29 09/12/17 05:58 Losartan Potassium (Cozaar) 50 mg DAILY NG 09/10/17 09:00 09/22/17 08:59 09/12/17 09:15 Metoclopramide HCl (Reglan) 10 mg Q8HR IVP 09/10/17 08:45 10/10/17 08:44 09/12/17 23:02 Metronidazole 100 ml @ 100 mls/hr Q8H IVPB 09/10/17 18:00 09/17/17 17:59 09/13/17 02:14 Micafungin Sodium 100 mg/Sodium Chloride 100 ml @ 100 mls/hr Q24H IVPB 09/10/17 15:00 09/17/17 14:59 09/12/17 16:16 Multivitamins (Multivitamins) 1 tab DAILY ORAL 09/10/17 09:00 09/18/17 08:59 09/12/17 09:15 Ondansetron HCl (Zofran) 4 mg Q6H PRN NG Nausea & Vomiting 09/09/17 15:30 09/18/17 07:59 09/10/17 20:49 Oxycodone/ Acetaminophen (Percocet 5-325) 1 tab Q4H PRN ORAL Moderate to Severe Pain (4-10) 09/11/17 17:00 09/18/17 16:59 09/12/17 23:21 Quetiapine Fumarate (SEROquel) 12.5 mg Q12H PRN ORAL Agitation 09/09/17 13:45 09/29/17 13:44 09/10/17 20:49 Vancomycin HCl (Vanco rx to dose) 1 ea DAILY PRN MISC Per rx protocol 09/10/17 09:00 09/27/17 16:14 Vancomycin HCl (Vancomycin) 125 mg FOUR TIMES A DAY ORAL 09/12/17 18:00 09/17/17 17:59 09/12/17 23:01 Vancomycin/Sodium Chloride 250 ml @ 166.667 mls/hr Q24H IVPB 09/13/17 14:00 09/17/17 13:59 Item Value Date Time Bedside Blood Glucose 275 mg/dl H 09/13/17 0000 Bedside Blood Glucose 208 mg/dl H 09/12/17 1803 Bedside Blood Glucose 132 mg/dl H 09/12/17 1200 Bedside Blood Glucose 55 mg/dl L 09/12/17 0630 KAYLEE DARNELL Sep 13, 2017 06:19
--- NOTE | 2017-09-13 06:19 | General Progress Note ---
Assessment/Plan Problem List: (1) DKA (diabetic ketoacidoses) ICD Codes: E13.10 - Other specified diabetes mellitus with ketoacidosis without coma SNOMED: 53748804, 950045456 (2) Altered level of consciousness ICD Codes: R40.4 - Transient alteration of awareness SNOMED: 5824488 (3) Hyperkalemia ICD Codes: E87.5 - Hyperkalemia SNOMED: 63360440 (4) Rhabdomyolysis ICD Codes: M62.82 - Rhabdomyolysis SNOMED: 448671970, 683073228 (5) Diabetes mellitus out of control ICD Codes: E11.65 - Type 2 diabetes mellitus with hyperglycemia SNOMED: 310833160, 10149210 (6) Sepsis ICD Codes: A41.9 - Sepsis, unspecified organism SNOMED: 19420379 (7) Hypothyroidism ICD Codes: E03.9 - Hypothyroidism, unspecified SNOMED: 55628538 Assessment/Plan no recurrence of hypoglycemia continue Levemir 8 units qhs continue Novolog sliding scale sensitive scale every 6 hours Continue Levothyroxine to 100 mcg daily - increased from 75 mcg on 09/09/17 repeat TSH in 2 weeks Subjective ROS Limited/Unobtainable: No Allergies: Coded Allergies: No Known Allergies (Unverified , 08/18/17) Subjective events noted - interval notes reviewed hypoglycemia this morning Objective Last 24 Hour Vital Signs Date Time Temp Pulse Resp B/P (MAP) Pulse Ox O2 Delivery O2 Flow Rate FiO2 09/13/17 04:04 97.3 67 18 110/67 95 Nasal Cannula 2.0 09/12/17 23:44 97.3 78 18 144/77 98 Nasal Cannula 09/12/17 21:14 Nasal Cannula 3.0 32 09/12/17 21:14 95 Nasal Cannula 3.0 32 09/12/17 20:26 96.4 78 18 125/70 95 Nasal Cannula 09/12/17 16:05 98.4 82 20 120/68 98 Nasal Cannula 3.0 09/12/17 12:30 98.1 75 20 126/65 98 Nasal Cannula 3.0 09/12/17 09:15 119/73 09/12/17 09:00 80 119/73 09/12/17 08:20 98.2 80 20 119/73 98 Nasal Cannula 3.0 09/12/17 08:00 Nasal Cannula 3.0 32 09/12/17 08:00 98 Nasal Cannula 3.0 32 Height (Feet): 5 Height (Inches): 3.00 Weight (Pounds): 146 General Appearance: no apparent distress EENT: pale conjunctivae Neck: normal alignment Cardiovascular: normal rate Respiratory/Chest: lungs clear Abdomen: normal bowel sounds Edema: no edema noted Arm (L), no edema noted Arm (R), no edema noted Leg (L), no edema noted Leg (R), no edema noted Pedal (L), no edema noted Pedal (R), no edema noted Generalized Objective Current Medications Medications (Trade) Dose Ordered Sig/Adonay Route PRN Reason Start Time Stop Time Status Last Admin Dose Admin Acetaminophen (Tylenol) 650 mg Q6H PRN ORAL Mild Pain/Temp > 100.5 09/09/17 19:00 09/18/17 18:59 09/10/17 20:49 Amlodipine Besylate (Norvasc) 10 mg DAILY NG 09/11/17 09:00 10/11/17 08:59 09/11/17 08:27 Ascorbic Acid (Vitamin C) 500 mg DAILY NG 09/10/17 09:00 09/22/17 08:59 09/12/17 09:15 Cefepime HCl 2 gm/ Sodium Chloride 110 ml @ 220 mls/hr Q24H IVPB 09/11/17 16:00 09/18/17 15:59 09/12/17 17:57 Citalopram Hydrobromide (celeXA) 20 mg DAILY GT 09/10/17 09:00 09/18/17 08:59 09/12/17 09:15 Clonidine HCl (Catapres) 0.1 mg Q6H PRN NG SBP > 160mmHg 09/09/17 13:40 09/22/17 13:39 Dextrose (Dextrose 50%) STAT PRN IV Hypoglycemia 09/12/17 06:30 10/12/17 06:29 Dextrose/Sodium Chloride 1,000 ml @ 50 mls/hr Q20H IV 09/10/17 14:30 10/10/17 14:29 09/13/17 02:31 Insulin Aspart (NovoLOG) EVERY 6 HOURS SUBQ 09/12/17 06:30 10/12/17 06:29 09/13/17 00:00 Insulin Detemir (Levemir) 8 units QHS SUBQ 09/12/17 21:00 10/11/17 08:59 09/12/17 23:06 Lactulose (Cephulac) 30 gm THREE TIMES A DAY GT 09/10/17 10:15 10/10/17 10:14 09/11/17 08:26 Lansoprazole (Prevacid) 30 mg ACBREAKFAST NG 09/10/17 06:30 10/10/17 06:29 09/12/17 05:58 Levothyroxine Sodium (Synthroid) 100 mcg ACBREAKFAST NG 09/10/17 06:30 10/10/17 06:29 09/12/17 05:58 Losartan Potassium (Cozaar) 50 mg DAILY NG 09/10/17 09:00 09/22/17 08:59 09/12/17 09:15 Metoclopramide HCl (Reglan) 10 mg Q8HR IVP 09/10/17 08:45 10/10/17 08:44 09/12/17 23:02 Metronidazole 100 ml @ 100 mls/hr Q8H IVPB 09/10/17 18:00 09/17/17 17:59 09/13/17 02:14 Micafungin Sodium 100 mg/Sodium Chloride 100 ml @ 100 mls/hr Q24H IVPB 09/10/17 15:00 09/17/17 14:59 09/12/17 16:16 Multivitamins (Multivitamins) 1 tab DAILY ORAL 09/10/17 09:00 09/18/17 08:59 09/12/17 09:15 Ondansetron HCl (Zofran) 4 mg Q6H PRN NG Nausea & Vomiting 09/09/17 15:30 09/18/17 07:59 09/10/17 20:49 Oxycodone/ Acetaminophen (Percocet 5-325) 1 tab Q4H PRN ORAL Moderate to Severe Pain (4-10) 09/11/17 17:00 09/18/17 16:59 09/12/17 23:21 Quetiapine Fumarate (SEROquel) 12.5 mg Q12H PRN ORAL Agitation 09/09/17 13:45 09/29/17 13:44 09/10/17 20:49 Vancomycin HCl (Vanco rx to dose) 1 ea DAILY PRN MISC Per rx protocol 09/10/17 09:00 09/27/17 16:14 Vancomycin HCl (Vancomycin) 125 mg FOUR TIMES A DAY ORAL 09/12/17 18:00 09/17/17 17:59 09/12/17 23:01 Vancomycin/Sodium Chloride 250 ml @ 166.667 mls/hr Q24H IVPB 09/13/17 14:00 09/17/17 13:59 Item Value Date Time Bedside Blood Glucose 275 mg/dl H 09/13/17 0000 Bedside Blood Glucose 208 mg/dl H 09/12/17 1803 Bedside Blood Glucose 132 mg/dl H 09/12/17 1200 Bedside Blood Glucose 55 mg/dl L 09/12/17 0630 KAYLEE DARNELL Sep 13, 2017 06:19
--- NOTE | 2017-09-13 06:19 | General Progress Note ---
Assessment/Plan Problem List: (1) DKA (diabetic ketoacidoses) ICD Codes: E13.10 - Other specified diabetes mellitus with ketoacidosis without coma SNOMED: 01330383, 670438451 (2) Altered level of consciousness ICD Codes: R40.4 - Transient alteration of awareness SNOMED: 8287360 (3) Hyperkalemia ICD Codes: E87.5 - Hyperkalemia SNOMED: 51127853 (4) Rhabdomyolysis ICD Codes: M62.82 - Rhabdomyolysis SNOMED: 590258966, 229549477 (5) Diabetes mellitus out of control ICD Codes: E11.65 - Type 2 diabetes mellitus with hyperglycemia SNOMED: 540576843, 19560743 (6) Sepsis ICD Codes: A41.9 - Sepsis, unspecified organism SNOMED: 59475518 (7) Hypothyroidism ICD Codes: E03.9 - Hypothyroidism, unspecified SNOMED: 72023589 Assessment/Plan no recurrence of hypoglycemia continue Levemir 8 units qhs continue Novolog sliding scale sensitive scale every 6 hours Continue Levothyroxine to 100 mcg daily - increased from 75 mcg on 09/09/17 repeat TSH in 2 weeks Subjective ROS Limited/Unobtainable: No Allergies: Coded Allergies: No Known Allergies (Unverified , 08/18/17) Subjective events noted - interval notes reviewed hypoglycemia this morning Objective Last 24 Hour Vital Signs Date Time Temp Pulse Resp B/P (MAP) Pulse Ox O2 Delivery O2 Flow Rate FiO2 09/13/17 04:04 97.3 67 18 110/67 95 Nasal Cannula 2.0 09/12/17 23:44 97.3 78 18 144/77 98 Nasal Cannula 09/12/17 21:14 Nasal Cannula 3.0 32 09/12/17 21:14 95 Nasal Cannula 3.0 32 09/12/17 20:26 96.4 78 18 125/70 95 Nasal Cannula 09/12/17 16:05 98.4 82 20 120/68 98 Nasal Cannula 3.0 09/12/17 12:30 98.1 75 20 126/65 98 Nasal Cannula 3.0 09/12/17 09:15 119/73 09/12/17 09:00 80 119/73 09/12/17 08:20 98.2 80 20 119/73 98 Nasal Cannula 3.0 09/12/17 08:00 Nasal Cannula 3.0 32 09/12/17 08:00 98 Nasal Cannula 3.0 32 Height (Feet): 5 Height (Inches): 3.00 Weight (Pounds): 146 General Appearance: no apparent distress EENT: pale conjunctivae Neck: normal alignment Cardiovascular: normal rate Respiratory/Chest: lungs clear Abdomen: normal bowel sounds Edema: no edema noted Arm (L), no edema noted Arm (R), no edema noted Leg (L), no edema noted Leg (R), no edema noted Pedal (L), no edema noted Pedal (R), no edema noted Generalized Objective Current Medications Medications (Trade) Dose Ordered Sig/Adonay Route PRN Reason Start Time Stop Time Status Last Admin Dose Admin Acetaminophen (Tylenol) 650 mg Q6H PRN ORAL Mild Pain/Temp > 100.5 09/09/17 19:00 09/18/17 18:59 09/10/17 20:49 Amlodipine Besylate (Norvasc) 10 mg DAILY NG 09/11/17 09:00 10/11/17 08:59 09/11/17 08:27 Ascorbic Acid (Vitamin C) 500 mg DAILY NG 09/10/17 09:00 09/22/17 08:59 09/12/17 09:15 Cefepime HCl 2 gm/ Sodium Chloride 110 ml @ 220 mls/hr Q24H IVPB 09/11/17 16:00 09/18/17 15:59 09/12/17 17:57 Citalopram Hydrobromide (celeXA) 20 mg DAILY GT 09/10/17 09:00 09/18/17 08:59 09/12/17 09:15 Clonidine HCl (Catapres) 0.1 mg Q6H PRN NG SBP > 160mmHg 09/09/17 13:40 09/22/17 13:39 Dextrose (Dextrose 50%) STAT PRN IV Hypoglycemia 09/12/17 06:30 10/12/17 06:29 Dextrose/Sodium Chloride 1,000 ml @ 50 mls/hr Q20H IV 09/10/17 14:30 10/10/17 14:29 09/13/17 02:31 Insulin Aspart (NovoLOG) EVERY 6 HOURS SUBQ 09/12/17 06:30 10/12/17 06:29 09/13/17 00:00 Insulin Detemir (Levemir) 8 units QHS SUBQ 09/12/17 21:00 10/11/17 08:59 09/12/17 23:06 Lactulose (Cephulac) 30 gm THREE TIMES A DAY GT 09/10/17 10:15 10/10/17 10:14 09/11/17 08:26 Lansoprazole (Prevacid) 30 mg ACBREAKFAST NG 09/10/17 06:30 10/10/17 06:29 09/12/17 05:58 Levothyroxine Sodium (Synthroid) 100 mcg ACBREAKFAST NG 09/10/17 06:30 10/10/17 06:29 09/12/17 05:58 Losartan Potassium (Cozaar) 50 mg DAILY NG 09/10/17 09:00 09/22/17 08:59 09/12/17 09:15 Metoclopramide HCl (Reglan) 10 mg Q8HR IVP 09/10/17 08:45 10/10/17 08:44 09/12/17 23:02 Metronidazole 100 ml @ 100 mls/hr Q8H IVPB 09/10/17 18:00 09/17/17 17:59 09/13/17 02:14 Micafungin Sodium 100 mg/Sodium Chloride 100 ml @ 100 mls/hr Q24H IVPB 09/10/17 15:00 09/17/17 14:59 09/12/17 16:16 Multivitamins (Multivitamins) 1 tab DAILY ORAL 09/10/17 09:00 09/18/17 08:59 09/12/17 09:15 Ondansetron HCl (Zofran) 4 mg Q6H PRN NG Nausea & Vomiting 09/09/17 15:30 09/18/17 07:59 09/10/17 20:49 Oxycodone/ Acetaminophen (Percocet 5-325) 1 tab Q4H PRN ORAL Moderate to Severe Pain (4-10) 09/11/17 17:00 09/18/17 16:59 09/12/17 23:21 Quetiapine Fumarate (SEROquel) 12.5 mg Q12H PRN ORAL Agitation 09/09/17 13:45 09/29/17 13:44 09/10/17 20:49 Vancomycin HCl (Vanco rx to dose) 1 ea DAILY PRN MISC Per rx protocol 09/10/17 09:00 09/27/17 16:14 Vancomycin HCl (Vancomycin) 125 mg FOUR TIMES A DAY ORAL 09/12/17 18:00 09/17/17 17:59 09/12/17 23:01 Vancomycin/Sodium Chloride 250 ml @ 166.667 mls/hr Q24H IVPB 09/13/17 14:00 09/17/17 13:59 Item Value Date Time Bedside Blood Glucose 275 mg/dl H 09/13/17 0000 Bedside Blood Glucose 208 mg/dl H 09/12/17 1803 Bedside Blood Glucose 132 mg/dl H 09/12/17 1200 Bedside Blood Glucose 55 mg/dl L 09/12/17 0630 KAYLEE DARNELL Sep 13, 2017 06:19
[2017-09-13] MEDS: Metoclopramide 10mg/2ml Inj IVP SCH ×3 (06:23→21:03)
[2017-09-13] MEDS: oxyCODONE HCL/Acetaminophen 5/325mg ORAL PRN ×4 (06:23→21:19)
[2017-09-13 06:50] LABS: ANION GAP 10 mmol/L (5-15); BLOOD UREA NITROGEN 13 mg/dL (7-18); CALCIUM 7.9 MG/DL (8.5-10.1); CARBON DIOXIDE 21 MMOL/L (21-32); CHLORIDE 105 MMOL/L (98-107); CREATININE 0.9 MG/DL (0.55-1.30); POTASSIUM 3.8 MMOL/L (3.5-5.1); SODIUM 135 MMOL/L (136-145)
[2017-09-13 07:07] LABS: HEMATOCRIT 34.3 % (37.0-47.0); HEMOGLOBIN 11.6 G/DL (12.0-16.0); MEAN CORPUSCULAR VOLUME 97 FL (80-99); PLATELET COUNT 359 K/UL (150-450); RED BLOOD COUNT 3.55 M/UL (4.20-5.40); RED CELL DISTRIBUTION WIDTH 15.1 % (11.6-14.8)
[2017-09-13 07:36] LABS: WHITE BLOOD COUNT 26.1 K/UL (4.8-10.8)
[2017-09-13 08:40] VITALS: BP 134/68
--- NOTE | 2017-09-13 08:58 | General Progress Note ---
Progress Note Progress Note Surgery: no acute events. resting comfortable. no n/v/f/c. wounds stable. afebrile, HD stable, leukocytosis improving. sacral decub with thick clean eschar. would not recommend debridement at this time. eschar is clean and no drainage or signs of infection. bilateral heel ischemia/decub. stable. no signs of infection noted. will monitor for now will continue to follow no acute surgical intervention necessary at this time Leopoldo Davila Sep 13, 2017 08:58
[2017-09-13] MEDS: Lactulose 20gm/30ml UDC GT SCH ×3 (09:00→18:00)
--- NOTE | 2017-09-13 09:32 | Pulmonology Progress Note ---
Assessment/Plan Assessment/Plan DKA, resolved DM w hypoglycemia, now stable UTI sepsis htn anxiety, depression chronic pain on meds AMS, improved but still confused lactic acidosis respiratory failure, interstitial edema hypothyroid Fungemia Mycofungin per ID WBC better DM rx per Dr Andrade Xray R wrist pdg swallow eval labs reviewed disc w RN, insurance MD advisor Subjective Allergies: Coded Allergies: No Known Allergies (Unverified , 08/18/17) Subjective pain all over R wrist pain Objective Last 24 Hour Vital Signs Date Time Temp Pulse Resp B/P (MAP) Pulse Ox O2 Delivery O2 Flow Rate FiO2 09/13/17 08:40 97.3 75 20 134/68 98 Room Air 09/13/17 07:15 Nasal Cannula 3.0 32 09/13/17 07:15 98 Nasal Cannula 3.0 32 09/13/17 04:04 97.3 67 18 110/67 95 Nasal Cannula 2.0 09/12/17 23:44 97.3 78 18 144/77 98 Nasal Cannula 09/12/17 21:14 Nasal Cannula 3.0 32 09/12/17 21:14 95 Nasal Cannula 3.0 32 09/12/17 20:26 96.4 78 18 125/70 95 Nasal Cannula 09/12/17 16:05 98.4 82 20 120/68 98 Nasal Cannula 3.0 09/12/17 12:30 98.1 75 20 126/65 98 Nasal Cannula 3.0 Objective G tube, R wrist red, tender General Appearance: no acute distress, cachetic HEENT: atraumatic Respiratory/Chest: lungs clear Cardiovascular: normal rate Extremities: other - 2+ edema Microbiology Date/Time Source Procedure Growth Status 09/11/17 14:45 Blood Blood Culture - Preliminary NO GROWTH AFTER 24 HOURS Resulted 09/11/17 14:40 Blood Blood Culture - Preliminary NO GROWTH AFTER 24 HOURS Resulted Laboratory Tests 09/13/17 06:10: White Blood Count 26.1*H, Red Blood Count 3.55L, Hemoglobin 11.6L, Hematocrit 34.3L, Mean Corpuscular Volume 97, Mean Corpuscular Hemoglobin 32.6H, Mean Corpuscular Hemoglobin Concent 33.7, Red Cell Distribution Width 15.1H, Platelet Count 359, Mean Platelet Volume 7.9, Neutrophils (%) (Auto) , Lymphocytes (%) (Auto) , Monocytes (%) (Auto) , Eosinophils (%) (Auto) , Basophils (%) (Auto) , Differential Total Cells Counted 100, Neutrophils % ( Manual) 91H, Lymphocytes % (Manual) 3L, Monocytes % (Manual) 6, Eosinophils % ( Manual) 0, Basophils % (Manual) 0, Band Neutrophils 0, Platelet Estimate Adequate, Platelet Morphology Normal, Anisocytosis 1+, Sodium Level 135L, Potassium Level 3.8, Chloride Level 105, Carbon Dioxide Level 21, Anion Gap 10, Blood Urea Nitrogen 13, Creatinine 0.9, Estimat Glomerular Filtration Rate > 60 , Glucose Level 204#H, Calcium Level 7.9L Current Medications Medications (Trade) Dose Ordered Sig/Adonay Route PRN Reason Start Time Stop Time Status Last Admin Dose Admin Acetaminophen (Tylenol) 650 mg Q6H PRN ORAL Mild Pain/Temp > 100.5 09/09/17 19:00 09/18/17 18:59 09/10/17 20:49 Amlodipine Besylate (Norvasc) 10 mg DAILY NG 09/11/17 09:00 10/11/17 08:59 09/11/17 08:27 Ascorbic Acid (Vitamin C) 500 mg DAILY NG 09/10/17 09:00 09/22/17 08:59 09/12/17 09:15 Cefepime HCl 2 gm/ Sodium Chloride 110 ml @ 220 mls/hr Q24H IVPB 09/11/17 16:00 09/18/17 15:59 09/12/17 17:57 Citalopram Hydrobromide (celeXA) 20 mg DAILY GT 09/10/17 09:00 09/18/17 08:59 09/12/17 09:15 Clonidine HCl (Catapres) 0.1 mg Q6H PRN NG SBP > 160mmHg 09/09/17 13:40 09/22/17 13:39 Dextrose (Dextrose 50%) STAT PRN IV Hypoglycemia 09/12/17 06:30 10/12/17 06:29 Dextrose/Sodium Chloride 1,000 ml @ 50 mls/hr Q20H IV 09/10/17 14:30 10/10/17 14:29 09/13/17 02:31 Insulin Aspart (NovoLOG) EVERY 6 HOURS SUBQ 09/12/17 06:30 10/12/17 06:29 09/13/17 00:00 Insulin Detemir (Levemir) 8 units QHS SUBQ 09/12/17 21:00 10/11/17 08:59 09/12/17 23:06 Lactulose (Cephulac) 30 gm THREE TIMES A DAY GT 09/10/17 10:15 10/10/17 10:14 09/11/17 08:26 Lansoprazole (Prevacid) 30 mg ACBREAKFAST NG 09/10/17 06:30 10/10/17 06:29 09/13/17 06:23 Levothyroxine Sodium (Synthroid) 100 mcg ACBREAKFAST NG 09/10/17 06:30 10/10/17 06:29 09/13/17 06:23 Losartan Potassium (Cozaar) 50 mg DAILY NG 09/10/17 09:00 09/22/17 08:59 09/12/17 09:15 Metoclopramide HCl (Reglan) 10 mg Q8HR IVP 09/10/17 08:45 10/10/17 08:44 09/13/17 06:23 Metronidazole 100 ml @ 100 mls/hr Q8H IVPB 09/10/17 18:00 09/17/17 17:59 09/13/17 02:14 Micafungin Sodium 100 mg/Sodium Chloride 100 ml @ 100 mls/hr Q24H IVPB 09/10/17 15:00 09/17/17 14:59 09/12/17 16:16 Multivitamins (Multivitamins) 1 tab DAILY ORAL 09/10/17 09:00 09/18/17 08:59 09/12/17 09:15 Ondansetron HCl (Zofran) 4 mg Q6H PRN NG Nausea & Vomiting 09/09/17 15:30 09/18/17 07:59 09/10/17 20:49 Oxycodone/ Acetaminophen (Percocet 5-325) 1 tab Q4H PRN ORAL Moderate to Severe Pain (4-10) 09/11/17 17:00 09/18/17 16:59 09/13/17 06:23 Quetiapine Fumarate (SEROquel) 12.5 mg Q12H PRN ORAL Agitation 09/09/17 13:45 09/29/17 13:44 09/10/17 20:49 Vancomycin HCl (Vanco rx to dose) 1 ea DAILY PRN MISC Per rx protocol 09/10/17 09:00 09/27/17 16:14 Vancomycin HCl (Vancomycin) 125 mg FOUR TIMES A DAY ORAL 09/12/17 18:00 09/17/17 17:59 09/12/17 23:01 Vancomycin/Sodium Chloride 250 ml @ 166.667 mls/hr Q24H IVPB 09/13/17 14:00 09/17/17 13:59 PATRICIA LUGO Sep 13, 2017 09:32
[2017-09-13] MEDS: Citalopram Hydrobromide 10mg Tab GT SCH (10:21)
[2017-09-13] MEDS: Losartan 50mg tab NG SCH (10:34)
[2017-09-13] MEDS: Vancomycin oral 125mg/2.5ml ORAL SCH (10:44)
[2017-09-13] MEDS: Ascorbic Acid 500mg tab NG SCH (10:45)
--- NOTE | 2017-09-13 11:05 | Diagnostic Imaging Report ---
Clinical Indication:PAIN Technique: 3 views of the right wrist Comparison: None Findings: The bones appear osteoporotic. No acute fractures. No dislocations. The joint spaces are preserved. Impression: Negative
[2017-09-13 12:46] VITALS: BP 132/68
[2017-09-13] MEDS: Enoxaparin 80mg Inj SUBQ SCH ×2 (15:01→21:04)
--- NOTE | 2017-09-13 15:28 | Infectious Diseases Prog Note ---
Assessment/Plan Assessment/Plan ASSESSMENT AND PLAN: 1. sepsis, klebsiella uti, mrsa pna, leukocytosis and hx fevers, ? c.diff - negative, aspiration risk, s/p g-tube, dwight glabrata fungal uti, fungemia, ct without abscess, right leg/foot ischemia/pad/occlusive dx - cefepime, iv vanco, flagyl, micafungin - check labs, check chest x-ray - surgery note reviewed - no decubitus infection, no abscess on aspiration - vascular surgery evaluation of right leg/foot ischemia - surveillance blood cultures negative - d/w family 2. The patient has history of diabetes. 3. Hypertension. 4. Anemia, hypernatremia 5. Respiratory insufficiency. 6. Blood sugar and blood pressure control per primary. 7. Diabetic ketoacidosis. 8. History of anxiety. 9. Depression. 10. Dementia. 11. Chronic pain syndrome. 12. Aspiration risk. 13. Altered mental status. 14. Poor historian. 15. No known allergies. 16. Social history is negative. 17. Family history is noncontributory. 18. MAR was noted. 19. Case was discussed with RN. 20. Notes and records were noted. 21. Skin care protocol. 22. I have reviewed the wounds. I do not think this is her source of sepsis. Continue local wound care protocol. wc - likely colonizer. 23. Continue treatment per Dr. Winn. Subjective Constitutional: Denies: fever HEENT: Denies: congestion Respiratory: Denies: shortness of breath Cardiovascular: Denies: chest pain Gastrointestinal/Abdominal: Denies: nausea, vomiting, diarrhea Genitourinary: Reports: other - + rowe Neurologic: Denies: headache Psychiatric: Reports: no symptoms Skin: Denies: rash Hematologic: Denies: bleeding Musculoskeletal: Denies: pain Allergies: Coded Allergies: No Known Allergies (Unverified , 08/18/17) Objective Vital Signs Last 24 Hour Vital Signs Date Time Temp Pulse Resp B/P (MAP) Pulse Ox O2 Delivery O2 Flow Rate FiO2 09/13/17 12:46 97.3 75 18 132/68 99 Room Air 09/13/17 10:37 76 133/70 09/13/17 10:34 133/70 09/13/17 08:40 97.3 75 20 134/68 98 Room Air 09/13/17 07:15 Nasal Cannula 3.0 32 09/13/17 07:15 98 Nasal Cannula 3.0 32 09/13/17 04:04 97.3 67 18 110/67 95 Nasal Cannula 2.0 09/12/17 23:44 97.3 78 18 144/77 98 Nasal Cannula 09/12/17 21:14 Nasal Cannula 3.0 32 09/12/17 21:14 95 Nasal Cannula 3.0 32 09/12/17 20:26 96.4 78 18 125/70 95 Nasal Cannula 09/12/17 16:05 98.4 82 20 120/68 98 Nasal Cannula 3.0 Height (Feet): 5 Height (Inches): 3.00 Weight (Pounds): 157 General Appearance: no acute distress HEENT: normocephalic, atraumatic, anicteric, mucous membranes moist, EOMI, pharynx normal, supple Respiratory/Chest: no accessory muscle use, crackles/rales, rhonchi - bilaterally Cardiovascular: normal rate, regular rhythm, no gallop/murmur, no JVD Abdomen: normal bowel sounds, soft, non tender, no organomegaly, non distended Genitourinary: other - + rowe - urine slt cloudy Extremities: other - right foot ischemic changes noted Skin: no rash 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 Gastrostomy in good position. Basilar reticular lung disease, nonspecific. Left basilar pneumonia versus atelectasis. Please correlate clinically. Atherosclerotic disease Rowe catheter in good position. Breathing motion artifact. Anasarca. Trace ascites 09/11- chest x-ray: Impression: Bilateral diffuse interstitial disease. Suspect mostly chronic, but there is possibly new or increased acute component in the retrocardiac region. Suspect small bilateral pleural effusions Arterial studies: right lower extremity occlusive disease noted, report noted Microbiology Date/Time Source Procedure Growth Status 09/11/17 14:45 Blood Blood Culture - Preliminary NO GROWTH AFTER 24 HOURS Resulted 09/11/17 14:40 Blood Blood Culture - Preliminary NO GROWTH AFTER 24 HOURS Resulted 09/13/17 06:30 Stool Clostridium difficile Toxin Assay - Final Complete Laboratory Tests Test 09/13/17 06:10 09/13/17 13:15 White Blood Count 26.1 K/UL (4.8-10.8) *H Red Blood Count 3.55 M/UL (4.20-5.40) L Hemoglobin 11.6 G/DL (12.0-16.0) L Hematocrit 34.3 % (37.0-47.0) L Mean Corpuscular Volume 97 FL (80-99) Mean Corpuscular Hemoglobin 32.6 PG (27.0-31.0) H Mean Corpuscular Hemoglobin Concent 33.7 G/DL (32.0-36.0) Red Cell Distribution Width 15.1 % (11.6-14.8) H Platelet Count 359 K/UL (150-450) Mean Platelet Volume 7.9 FL (6.5-10.1) Neutrophils (%) (Auto) % (45.0-75.0) Lymphocytes (%) (Auto) % (20.0-45.0) Monocytes (%) (Auto) % (1.0-10.0) Eosinophils (%) (Auto) % (0.0-3.0) Basophils (%) (Auto) % (0.0-2.0) Differential Total Cells Counted 100 Neutrophils % (Manual) 91 % (45-75) H Lymphocytes % (Manual) 3 % (20-45) L Monocytes % (Manual) 6 % (1-10) Eosinophils % (Manual) 0 % (0-3) Basophils % (Manual) 0 % (0-2) Band Neutrophils 0 % (0-8) Platelet Estimate Adequate Platelet Morphology Normal Anisocytosis 1+ Sodium Level 135 MMOL/L (136-145) L Potassium Level 3.8 MMOL/L (3.5-5.1) Chloride Level 105 MMOL/L (98-107) Carbon Dioxide Level 21 MMOL/L (21-32) Anion Gap 10 mmol/L (5-15) Blood Urea Nitrogen 13 mg/dL (7-18) Creatinine 0.9 MG/DL (0.55-1.30) Estimat Glomerular Filtration Rate > 60 mL/min (>60) Glucose Level 204 MG/DL (74-106) #H Calcium Level 7.9 MG/DL (8.5-10.1) L Vancomycin Level Trough 14.7 ug/mL (5.0-12.0) H Current Medications Medications (Trade) Dose Ordered Sig/Adonay Route PRN Reason Start Time Stop Time Status Last Admin Dose Admin Acetaminophen (Tylenol) 650 mg Q6H PRN ORAL Mild Pain/Temp > 100.5 09/09/17 19:00 09/18/17 18:59 09/10/17 20:49 Amlodipine Besylate (Norvasc) 10 mg DAILY NG 09/11/17 09:00 10/11/17 08:59 09/13/17 10:37 Ascorbic Acid (Vitamin C) 500 mg DAILY NG 09/10/17 09:00 09/22/17 08:59 09/13/17 10:45 Cefepime HCl 2 gm/ Sodium Chloride 110 ml @ 220 mls/hr Q24H IVPB 09/11/17 16:00 09/18/17 15:59 09/12/17 17:57 Citalopram Hydrobromide (celeXA) 20 mg DAILY GT 09/10/17 09:00 09/18/17 08:59 09/13/17 10:21 Clonidine HCl (Catapres) 0.1 mg Q6H PRN NG SBP > 160mmHg 09/09/17 13:40 09/22/17 13:39 Dextrose (Dextrose 50%) STAT PRN IV Hypoglycemia 09/12/17 06:30 10/12/17 06:29 Dextrose/Sodium Chloride 1,000 ml @ 50 mls/hr Q20H IV 09/10/17 14:30 10/10/17 14:29 09/13/17 02:31 Enoxaparin Sodium (Lovenox) 70 mg Q12HR SUBQ 09/13/17 13:00 10/13/17 12:59 09/13/17 15:01 Heparin Sodium/ Sodium Chloride (Heparin 2000 units/Ns 1000ml premix) 2,000 unit ONCE ONCE IV 09/13/17 18:00 09/13/17 18:01 Insulin Aspart (NovoLOG) EVERY 6 HOURS SUBQ 09/12/17 06:30 10/12/17 06:29 09/13/17 00:00 Insulin Detemir (Levemir) 8 units QHS SUBQ 09/12/17 21:00 10/11/17 08:59 09/12/17 23:06 Lactulose (Cephulac) 30 gm THREE TIMES A DAY GT 09/10/17 10:15 10/10/17 10:14 09/11/17 08:26 Lansoprazole (Prevacid) 30 mg ACBREAKFAST NG 09/10/17 06:30 10/10/17 06:29 09/13/17 06:23 Levothyroxine Sodium (Synthroid) 100 mcg ACBREAKFAST NG 09/10/17 06:30 10/10/17 06:29 09/13/17 06:23 Lidocaine HCl (Xylocaine 1% 30ml) 30 ml ONCE ONCE INJ 09/13/17 18:00 09/13/17 18:01 Losartan Potassium (Cozaar) 50 mg DAILY NG 09/10/17 09:00 09/22/17 08:59 09/13/17 10:34 Metoclopramide HCl (Reglan) 10 mg Q8HR IVP 09/10/17 08:45 10/10/17 08:44 09/13/17 06:23 Metronidazole 100 ml @ 100 mls/hr Q8H IVPB 09/10/17 18:00 09/17/17 17:59 09/13/17 02:14 Micafungin Sodium 100 mg/Sodium Chloride 100 ml @ 100 mls/hr Q24H IVPB 09/10/17 15:00 09/17/17 14:59 09/12/17 16:16 Multivitamins (Multivitamins) 1 tab DAILY ORAL 09/10/17 09:00 09/18/17 08:59 09/13/17 10:28 Ondansetron HCl (Zofran) 4 mg Q6H PRN NG Nausea & Vomiting 09/09/17 15:30 09/18/17 07:59 09/10/17 20:49 Oxycodone/ Acetaminophen (Percocet 5-325) 1 tab Q4H PRN ORAL Moderate to Severe Pain (4-10) 09/11/17 17:00 09/18/17 16:59 09/13/17 13:02 Quetiapine Fumarate (SEROquel) 12.5 mg Q12H PRN ORAL Agitation 09/09/17 13:45 09/29/17 13:44 09/10/17 20:49 Vancomycin HCl (Vanco rx to dose) 1 ea DAILY PRN MISC Per rx protocol 09/10/17 09:00 09/27/17 16:14 Vancomycin/Sodium Chloride 250 ml @ 166.667 mls/hr Q24H IVPB 09/13/17 14:00 09/17/17 13:59 YASIR RUEDA Sep 13, 2017 15:28
[2017-09-13 16:00] VITALS: BP 136/78
--- NOTE | 2017-09-13 16:46 | Diagnostic Imaging Report ---
Indications: Needs long-term IV access Technique: Ultrasound confirms patent compressible left basilic vein. Total sterile technique, including sterile probe cover and sterile gel, hat, mask,, sterile gown, large sterile drape, and preparation with 2% chlorhexidine utilized. Local anesthesia with 1% lidocaine. Under real-time ultrasound guidance, puncture basilic vein using 21-gauge needle, documented and archived, passage 0.018 guidewire under direct fluoroscopy, which was used to determine appropriate catheter length, exchange for 5 Bengali peel-away sheath. 5 Bengali Bard dual-lumen power PICC cut to 40 cm. It was inserted through the peel-away sheath. Peel-away sheath and guidewire removed. Catheter fixed to the skin. Both catheter ports aspirated and flushed. Patient tolerated procedure well, without immediate complication. Digital radiograph documents satisfactory catheter tip position, at the cavoatrial junction. Total fluoroscopy time 0.3 minutes. Total dose area product 6.7 dGycm2 Impression: Successful placement of left arm PICC under sonographic and fluoroscopic guidance, as described above.
[2017-09-13] MEDS: Vancomycin 750mg/NS 250ml 250 ML IVPB SCH (17:09)
[2017-09-13] MEDS ORDERED: Lidocaine 1% Plain 30 ml INJ ONE (18:00)
[2017-09-13] MEDS ORDERED: Heparin 2000 units/Ns 1000ml IV ONE (18:00)
[2017-09-13 20:03] VITALS: BP 140/72
[2017-09-13] MEDS: Cefepime HCl 2 GM in NS 110 ML IVPB SCH (21:04)
[2017-09-13] MEDS: Levemir Flexpen SUBQ SCH (21:05)
--- NOTE | 2017-09-13 22:21 | General Progress Note ---
Assessment/Plan Assessment/Plan Assessment - Respiratory failure - leukocytosis - Anemia - tube feed intolerance - IDDM - s/p PEG Recommendations - Advance feeds - monitor residuals - GT care - Elevate HOB - abx Subjective Allergies: Coded Allergies: No Known Allergies (Unverified , 08/18/17) Subjective above noted tolerating TF well Objective Last 24 Hour Vital Signs Date Time Temp Pulse Resp B/P (MAP) Pulse Ox O2 Delivery O2 Flow Rate FiO2 09/13/17 20:03 97.3 77 18 140/72 91 Room Air 09/13/17 16:00 97.8 78 20 136/78 Nasal Cannula 09/13/17 12:46 97.3 75 18 132/68 99 Room Air 09/13/17 10:37 76 133/70 09/13/17 10:34 133/70 09/13/17 08:40 97.3 75 20 134/68 98 Room Air 09/13/17 07:15 Nasal Cannula 3.0 32 09/13/17 07:15 98 Nasal Cannula 3.0 32 09/13/17 04:04 97.3 67 18 110/67 95 Nasal Cannula 2.0 09/12/17 23:44 97.3 78 18 144/77 98 Nasal Cannula Intake and Output 09/13/17 09/14/17 19:00 07:00 Intake Total 575 ml Balance 575 ml Free Water 100 ml IV Total 250 ml Tube Feeding 225 ml Laboratory Tests 09/13/17 06:10: White Blood Count 26.1*H, Red Blood Count 3.55L, Hemoglobin 11.6L, Hematocrit 34.3L, Mean Corpuscular Volume 97, Mean Corpuscular Hemoglobin 32.6H, Mean Corpuscular Hemoglobin Concent 33.7, Red Cell Distribution Width 15.1H, Platelet Count 359, Mean Platelet Volume 7.9, Neutrophils (%) (Auto) , Lymphocytes (%) (Auto) , Monocytes (%) (Auto) , Eosinophils (%) (Auto) , Basophils (%) (Auto) , Differential Total Cells Counted 100, Neutrophils % ( Manual) 91H, Lymphocytes % (Manual) 3L, Monocytes % (Manual) 6, Eosinophils % ( Manual) 0, Basophils % (Manual) 0, Band Neutrophils 0, Platelet Estimate Adequate, Platelet Morphology Normal, Anisocytosis 1+, Sodium Level 135L, Potassium Level 3.8, Chloride Level 105, Carbon Dioxide Level 21, Anion Gap 10, Blood Urea Nitrogen 13, Creatinine 0.9, Estimat Glomerular Filtration Rate > 60 , Glucose Level 204#H, Calcium Level 7.9L 09/13/17 13:15: Vancomycin Level Trough 14.7H Height (Feet): 5 Height (Inches): 3.00 Weight (Pounds): 157 Objective Thin AA woman NCAT Neck supple Chest: b/l coarse BS RRR soft mild distention and TTP, (+) GT ERIKA ESPINOSA Sep 13, 2017 22:21
--- NOTE | 2017-09-13 22:52 | General Progress Note ---
Assessment/Plan Status: stable, progressing Assessment/Plan agitated at times much improved Subjective Constitutional: Reports: malaise, weakness Neurologic/Psychiatric: Reports: anxiety, depressed, emotional problems Allergies: Coded Allergies: No Known Allergies (Unverified , 08/18/17) Subjective calm no agitation Objective Last 24 Hour Vital Signs Date Time Temp Pulse Resp B/P (MAP) Pulse Ox O2 Delivery O2 Flow Rate FiO2 09/13/17 22:18 97.3 09/13/17 20:03 97.3 77 18 140/72 91 Room Air 09/13/17 16:00 97.8 78 20 136/78 Nasal Cannula 09/13/17 12:46 97.3 75 18 132/68 99 Room Air 09/13/17 10:37 76 133/70 09/13/17 10:34 133/70 09/13/17 08:40 97.3 75 20 134/68 98 Room Air 09/13/17 07:15 Nasal Cannula 3.0 32 09/13/17 07:15 98 Nasal Cannula 3.0 32 09/13/17 04:04 97.3 67 18 110/67 95 Nasal Cannula 2.0 09/12/17 23:44 97.3 78 18 144/77 98 Nasal Cannula Intake and Output 09/13/17 09/14/17 19:00 07:00 Intake Total 575 ml Balance 575 ml Free Water 100 ml IV Total 250 ml Tube Feeding 225 ml Laboratory Tests 09/13/17 06:10: White Blood Count 26.1*H, Red Blood Count 3.55L, Hemoglobin 11.6L, Hematocrit 34.3L, Mean Corpuscular Volume 97, Mean Corpuscular Hemoglobin 32.6H, Mean Corpuscular Hemoglobin Concent 33.7, Red Cell Distribution Width 15.1H, Platelet Count 359, Mean Platelet Volume 7.9, Neutrophils (%) (Auto) , Lymphocytes (%) (Auto) , Monocytes (%) (Auto) , Eosinophils (%) (Auto) , Basophils (%) (Auto) , Differential Total Cells Counted 100, Neutrophils % ( Manual) 91H, Lymphocytes % (Manual) 3L, Monocytes % (Manual) 6, Eosinophils % ( Manual) 0, Basophils % (Manual) 0, Band Neutrophils 0, Platelet Estimate Adequate, Platelet Morphology Normal, Anisocytosis 1+, Sodium Level 135L, Potassium Level 3.8, Chloride Level 105, Carbon Dioxide Level 21, Anion Gap 10, Blood Urea Nitrogen 13, Creatinine 0.9, Estimat Glomerular Filtration Rate > 60 , Glucose Level 204#H, Calcium Level 7.9L 09/13/17 13:15: Vancomycin Level Trough 14.7H Height (Feet): 5 Height (Inches): 3.00 Weight (Pounds): 157 General Appearance: no apparent distress, alert, overweight Neurologic: alert, oriented x 3, responsive, depressed affect Audi Bonilla M.D. Sep 13, 2017 22:52
[2017-09-14] VITALS: BP 139/75
[2017-09-14 04:00] VITALS: BP 137/98
[2017-09-14] MEDS: oxyCODONE HCL/Acetaminophen 5/325mg ORAL PRN ×3 (04:02→21:17)
[2017-09-14] MEDS: Metoclopramide 10mg/2ml Inj IVP SCH ×3 (05:17→21:07)
[2017-09-14] MEDS: NovoLOG Insulin Flexpen SUBQ SCH ×3 (05:18→18:35)
--- NOTE | 2017-09-14 05:18 | General Progress Note ---
Assessment/Plan Problem List: (1) DKA (diabetic ketoacidoses) ICD Codes: E13.10 - Other specified diabetes mellitus with ketoacidosis without coma SNOMED: 64289178, 470141342 (2) Altered level of consciousness ICD Codes: R40.4 - Transient alteration of awareness SNOMED: 8831411 (3) Hyperkalemia ICD Codes: E87.5 - Hyperkalemia SNOMED: 37906755 (4) Rhabdomyolysis ICD Codes: M62.82 - Rhabdomyolysis SNOMED: 561768652, 307213983 (5) Diabetes mellitus out of control ICD Codes: E11.65 - Type 2 diabetes mellitus with hyperglycemia SNOMED: 249933625, 80257035 (6) Sepsis ICD Codes: A41.9 - Sepsis, unspecified organism SNOMED: 76234381 (7) Hypothyroidism ICD Codes: E03.9 - Hypothyroidism, unspecified SNOMED: 29496999 Assessment/Plan no recurrence of hypoglycemia continue Levemir 8 units qhs continue Novolog sliding scale sensitive scale every 6 hours Continue Levothyroxine to 100 mcg daily - increased from 75 mcg on 09/09/17 repeat TSH in 2 weeks Subjective ROS Limited/Unobtainable: Yes Allergies: Coded Allergies: No Known Allergies (Unverified , 08/18/17) Subjective events noted - interval notes reviewed Objective Last 24 Hour Vital Signs Date Time Temp Pulse Resp B/P (MAP) Pulse Ox O2 Delivery O2 Flow Rate FiO2 09/14/17 04:00 97.5 82 18 137/98 92 Room Air 09/14/17 00:00 97.7 75 18 139/75 93 Room Air 09/13/17 22:18 97.3 09/13/17 21:00 Room Air 09/13/17 21:00 94 Room Air 09/13/17 20:03 97.3 77 18 140/72 91 Room Air 09/13/17 16:00 97.8 78 20 136/78 Nasal Cannula 09/13/17 12:46 97.3 75 18 132/68 99 Room Air 09/13/17 10:37 76 133/70 09/13/17 10:34 133/70 09/13/17 08:40 97.3 75 20 134/68 98 Room Air 09/13/17 07:15 Nasal Cannula 3.0 32 09/13/17 07:15 98 Nasal Cannula 3.0 32 Laboratory Tests 09/13/17 06:10: White Blood Count 26.1*H, Red Blood Count 3.55L, Hemoglobin 11.6L, Hematocrit 34.3L, Mean Corpuscular Volume 97, Mean Corpuscular Hemoglobin 32.6H, Mean Corpuscular Hemoglobin Concent 33.7, Red Cell Distribution Width 15.1H, Platelet Count 359, Mean Platelet Volume 7.9, Neutrophils (%) (Auto) , Lymphocytes (%) (Auto) , Monocytes (%) (Auto) , Eosinophils (%) (Auto) , Basophils (%) (Auto) , Differential Total Cells Counted 100, Neutrophils % ( Manual) 91H, Lymphocytes % (Manual) 3L, Monocytes % (Manual) 6, Eosinophils % ( Manual) 0, Basophils % (Manual) 0, Band Neutrophils 0, Platelet Estimate Adequate, Platelet Morphology Normal, Anisocytosis 1+, Sodium Level 135L, Potassium Level 3.8, Chloride Level 105, Carbon Dioxide Level 21, Anion Gap 10, Blood Urea Nitrogen 13, Creatinine 0.9, Estimat Glomerular Filtration Rate > 60 , Glucose Level 204#H, Calcium Level 7.9L 09/13/17 13:15: Vancomycin Level Trough 14.7H Height (Feet): 5 Height (Inches): 3.00 Weight (Pounds): 157 General Appearance: lethargic EENT: pale conjunctivae Neck: normal alignment Cardiovascular: normal rate Respiratory/Chest: decreased breath sounds Abdomen: normal bowel sounds Edema: 1+ Arm (L), 1+ Arm (R), 1+ Leg (L), 1+ Leg (R), 1+ Pedal (L), 1+ Pedal ( R), 1+ Generalized Objective Current Medications Medications (Trade) Dose Ordered Sig/Adonay Route PRN Reason Start Time Stop Time Status Last Admin Dose Admin Acetaminophen (Tylenol) 650 mg Q6H PRN ORAL Mild Pain/Temp > 100.5 09/09/17 19:00 09/18/17 18:59 09/10/17 20:49 Amlodipine Besylate (Norvasc) 10 mg DAILY NG 09/11/17 09:00 10/11/17 08:59 09/13/17 10:37 Ascorbic Acid (Vitamin C) 500 mg DAILY NG 09/10/17 09:00 09/22/17 08:59 09/13/17 10:45 Cefepime HCl 2 gm/ Sodium Chloride 110 ml @ 220 mls/hr Q24H IVPB 09/11/17 16:00 09/18/17 15:59 09/13/17 21:04 Chlorhexidine Gluconate ([place]-Hex 2%) 1 applic DAILY@2000 TOPIC 09/14/17 20:00 10/14/17 19:59 Citalopram Hydrobromide (celeXA) 20 mg DAILY GT 09/10/17 09:00 09/18/17 08:59 09/13/17 10:21 Clonidine HCl (Catapres) 0.1 mg Q6H PRN NG SBP > 160mmHg 09/09/17 13:40 09/22/17 13:39 Dextrose (Dextrose 50%) STAT PRN IV Hypoglycemia 09/12/17 06:30 10/12/17 06:29 Dextrose/Sodium Chloride 1,000 ml @ 50 mls/hr Q20H IV 09/10/17 14:30 10/10/17 14:29 09/13/17 23:45 Enoxaparin Sodium (Lovenox) 70 mg Q12HR SUBQ 09/13/17 13:00 10/13/17 12:59 09/13/17 21:04 Insulin Aspart (NovoLOG) EVERY 6 HOURS SUBQ 09/12/17 06:30 10/12/17 06:29 09/13/17 00:00 Insulin Detemir (Levemir) 8 units QHS SUBQ 09/12/17 21:00 10/11/17 08:59 09/13/17 21:05 Lactulose (Cephulac) 30 gm THREE TIMES A DAY GT 09/10/17 10:15 10/10/17 10:14 09/11/17 08:26 Lansoprazole (Prevacid) 30 mg ACBREAKFAST NG 09/10/17 06:30 10/10/17 06:29 09/13/17 06:23 Levothyroxine Sodium (Synthroid) 100 mcg ACBREAKFAST NG 09/10/17 06:30 10/10/17 06:29 09/13/17 06:23 Losartan Potassium (Cozaar) 50 mg DAILY NG 09/10/17 09:00 09/22/17 08:59 09/13/17 10:34 Metoclopramide HCl (Reglan) 10 mg Q8HR IVP 09/10/17 08:45 10/10/17 08:44 09/13/17 21:03 Metronidazole 100 ml @ 100 mls/hr Q8H IVPB 09/10/17 18:00 09/17/17 17:59 09/14/17 01:33 Micafungin Sodium 100 mg/Sodium Chloride 100 ml @ 100 mls/hr Q24H IVPB 09/10/17 15:00 09/17/17 14:59 09/13/17 20:06 Multivitamins (Multivitamins) 1 tab DAILY ORAL 09/10/17 09:00 09/18/17 08:59 09/13/17 10:28 Ondansetron HCl (Zofran) 4 mg Q6H PRN NG Nausea & Vomiting 09/09/17 15:30 09/18/17 07:59 09/10/17 20:49 Oxycodone/ Acetaminophen (Percocet 5-325) 1 tab Q4H PRN ORAL Moderate to Severe Pain (4-10) 09/11/17 17:00 09/18/17 16:59 09/14/17 04:02 Quetiapine Fumarate (SEROquel) 12.5 mg Q12H PRN ORAL Agitation 09/09/17 13:45 09/29/17 13:44 09/10/17 20:49 Vancomycin HCl (Vanco rx to dose) 1 ea DAILY PRN MISC Per rx protocol 09/10/17 09:00 09/27/17 16:14 Vancomycin/Sodium Chloride 250 ml @ 166.667 mls/hr Q24H IVPB 09/13/17 14:00 09/17/17 13:59 09/13/17 17:09 Item Value Date Time Bedside Blood Glucose 136 mg/dl H 09/13/17 2345 Bedside Blood Glucose 95 mg/dl 09/13/17 210 Bedside Blood Glucose 88 mg/dl 09/13/17 1840 Bedside Blood Glucose 119 mg/dl 09/13/17 1202 KAYLEE DARNELL Sep 14, 2017 05:18
--- NOTE | 2017-09-14 05:18 | General Progress Note ---
Assessment/Plan Problem List: (1) DKA (diabetic ketoacidoses) ICD Codes: E13.10 - Other specified diabetes mellitus with ketoacidosis without coma SNOMED: 50688994, 067809127 (2) Altered level of consciousness ICD Codes: R40.4 - Transient alteration of awareness SNOMED: 6195551 (3) Hyperkalemia ICD Codes: E87.5 - Hyperkalemia SNOMED: 34959063 (4) Rhabdomyolysis ICD Codes: M62.82 - Rhabdomyolysis SNOMED: 890933976, 404162821 (5) Diabetes mellitus out of control ICD Codes: E11.65 - Type 2 diabetes mellitus with hyperglycemia SNOMED: 363311232, 97107810 (6) Sepsis ICD Codes: A41.9 - Sepsis, unspecified organism SNOMED: 19170902 (7) Hypothyroidism ICD Codes: E03.9 - Hypothyroidism, unspecified SNOMED: 29923318 Assessment/Plan no recurrence of hypoglycemia continue Levemir 8 units qhs continue Novolog sliding scale sensitive scale every 6 hours Continue Levothyroxine to 100 mcg daily - increased from 75 mcg on 09/09/17 repeat TSH in 2 weeks Subjective ROS Limited/Unobtainable: Yes Allergies: Coded Allergies: No Known Allergies (Unverified , 08/18/17) Subjective events noted - interval notes reviewed Objective Last 24 Hour Vital Signs Date Time Temp Pulse Resp B/P (MAP) Pulse Ox O2 Delivery O2 Flow Rate FiO2 09/14/17 04:00 97.5 82 18 137/98 92 Room Air 09/14/17 00:00 97.7 75 18 139/75 93 Room Air 09/13/17 22:18 97.3 09/13/17 21:00 Room Air 09/13/17 21:00 94 Room Air 09/13/17 20:03 97.3 77 18 140/72 91 Room Air 09/13/17 16:00 97.8 78 20 136/78 Nasal Cannula 09/13/17 12:46 97.3 75 18 132/68 99 Room Air 09/13/17 10:37 76 133/70 09/13/17 10:34 133/70 09/13/17 08:40 97.3 75 20 134/68 98 Room Air 09/13/17 07:15 Nasal Cannula 3.0 32 09/13/17 07:15 98 Nasal Cannula 3.0 32 Laboratory Tests 09/13/17 06:10: White Blood Count 26.1*H, Red Blood Count 3.55L, Hemoglobin 11.6L, Hematocrit 34.3L, Mean Corpuscular Volume 97, Mean Corpuscular Hemoglobin 32.6H, Mean Corpuscular Hemoglobin Concent 33.7, Red Cell Distribution Width 15.1H, Platelet Count 359, Mean Platelet Volume 7.9, Neutrophils (%) (Auto) , Lymphocytes (%) (Auto) , Monocytes (%) (Auto) , Eosinophils (%) (Auto) , Basophils (%) (Auto) , Differential Total Cells Counted 100, Neutrophils % ( Manual) 91H, Lymphocytes % (Manual) 3L, Monocytes % (Manual) 6, Eosinophils % ( Manual) 0, Basophils % (Manual) 0, Band Neutrophils 0, Platelet Estimate Adequate, Platelet Morphology Normal, Anisocytosis 1+, Sodium Level 135L, Potassium Level 3.8, Chloride Level 105, Carbon Dioxide Level 21, Anion Gap 10, Blood Urea Nitrogen 13, Creatinine 0.9, Estimat Glomerular Filtration Rate > 60 , Glucose Level 204#H, Calcium Level 7.9L 09/13/17 13:15: Vancomycin Level Trough 14.7H Height (Feet): 5 Height (Inches): 3.00 Weight (Pounds): 157 General Appearance: lethargic EENT: pale conjunctivae Neck: normal alignment Cardiovascular: normal rate Respiratory/Chest: decreased breath sounds Abdomen: normal bowel sounds Edema: 1+ Arm (L), 1+ Arm (R), 1+ Leg (L), 1+ Leg (R), 1+ Pedal (L), 1+ Pedal ( R), 1+ Generalized Objective Current Medications Medications (Trade) Dose Ordered Sig/Adonay Route PRN Reason Start Time Stop Time Status Last Admin Dose Admin Acetaminophen (Tylenol) 650 mg Q6H PRN ORAL Mild Pain/Temp > 100.5 09/09/17 19:00 09/18/17 18:59 09/10/17 20:49 Amlodipine Besylate (Norvasc) 10 mg DAILY NG 09/11/17 09:00 10/11/17 08:59 09/13/17 10:37 Ascorbic Acid (Vitamin C) 500 mg DAILY NG 09/10/17 09:00 09/22/17 08:59 09/13/17 10:45 Cefepime HCl 2 gm/ Sodium Chloride 110 ml @ 220 mls/hr Q24H IVPB 09/11/17 16:00 09/18/17 15:59 09/13/17 21:04 Chlorhexidine Gluconate (Carolina-Hex 2%) 1 applic DAILY@2000 TOPIC 09/14/17 20:00 10/14/17 19:59 Citalopram Hydrobromide (celeXA) 20 mg DAILY GT 09/10/17 09:00 09/18/17 08:59 09/13/17 10:21 Clonidine HCl (Catapres) 0.1 mg Q6H PRN NG SBP > 160mmHg 09/09/17 13:40 09/22/17 13:39 Dextrose (Dextrose 50%) STAT PRN IV Hypoglycemia 09/12/17 06:30 10/12/17 06:29 Dextrose/Sodium Chloride 1,000 ml @ 50 mls/hr Q20H IV 09/10/17 14:30 10/10/17 14:29 09/13/17 23:45 Enoxaparin Sodium (Lovenox) 70 mg Q12HR SUBQ 09/13/17 13:00 10/13/17 12:59 09/13/17 21:04 Insulin Aspart (NovoLOG) EVERY 6 HOURS SUBQ 09/12/17 06:30 10/12/17 06:29 09/13/17 00:00 Insulin Detemir (Levemir) 8 units QHS SUBQ 09/12/17 21:00 10/11/17 08:59 09/13/17 21:05 Lactulose (Cephulac) 30 gm THREE TIMES A DAY GT 09/10/17 10:15 10/10/17 10:14 09/11/17 08:26 Lansoprazole (Prevacid) 30 mg ACBREAKFAST NG 09/10/17 06:30 10/10/17 06:29 09/13/17 06:23 Levothyroxine Sodium (Synthroid) 100 mcg ACBREAKFAST NG 09/10/17 06:30 10/10/17 06:29 09/13/17 06:23 Losartan Potassium (Cozaar) 50 mg DAILY NG 09/10/17 09:00 09/22/17 08:59 09/13/17 10:34 Metoclopramide HCl (Reglan) 10 mg Q8HR IVP 09/10/17 08:45 10/10/17 08:44 09/13/17 21:03 Metronidazole 100 ml @ 100 mls/hr Q8H IVPB 09/10/17 18:00 09/17/17 17:59 09/14/17 01:33 Micafungin Sodium 100 mg/Sodium Chloride 100 ml @ 100 mls/hr Q24H IVPB 09/10/17 15:00 09/17/17 14:59 09/13/17 20:06 Multivitamins (Multivitamins) 1 tab DAILY ORAL 09/10/17 09:00 09/18/17 08:59 09/13/17 10:28 Ondansetron HCl (Zofran) 4 mg Q6H PRN NG Nausea & Vomiting 09/09/17 15:30 09/18/17 07:59 09/10/17 20:49 Oxycodone/ Acetaminophen (Percocet 5-325) 1 tab Q4H PRN ORAL Moderate to Severe Pain (4-10) 09/11/17 17:00 09/18/17 16:59 09/14/17 04:02 Quetiapine Fumarate (SEROquel) 12.5 mg Q12H PRN ORAL Agitation 09/09/17 13:45 09/29/17 13:44 09/10/17 20:49 Vancomycin HCl (Vanco rx to dose) 1 ea DAILY PRN MISC Per rx protocol 09/10/17 09:00 09/27/17 16:14 Vancomycin/Sodium Chloride 250 ml @ 166.667 mls/hr Q24H IVPB 09/13/17 14:00 09/17/17 13:59 09/13/17 17:09 Item Value Date Time Bedside Blood Glucose 136 mg/dl H 09/13/17 2345 Bedside Blood Glucose 95 mg/dl 09/13/17 210 Bedside Blood Glucose 88 mg/dl 09/13/17 1840 Bedside Blood Glucose 119 mg/dl 09/13/17 1202 KAYLEE DARNELL Sep 14, 2017 05:18
--- NOTE | 2017-09-14 05:18 | General Progress Note ---
Assessment/Plan Problem List: (1) DKA (diabetic ketoacidoses) ICD Codes: E13.10 - Other specified diabetes mellitus with ketoacidosis without coma SNOMED: 63727837, 467027485 (2) Altered level of consciousness ICD Codes: R40.4 - Transient alteration of awareness SNOMED: 3269347 (3) Hyperkalemia ICD Codes: E87.5 - Hyperkalemia SNOMED: 21563202 (4) Rhabdomyolysis ICD Codes: M62.82 - Rhabdomyolysis SNOMED: 415843622, 365235693 (5) Diabetes mellitus out of control ICD Codes: E11.65 - Type 2 diabetes mellitus with hyperglycemia SNOMED: 680909253, 44977387 (6) Sepsis ICD Codes: A41.9 - Sepsis, unspecified organism SNOMED: 69371907 (7) Hypothyroidism ICD Codes: E03.9 - Hypothyroidism, unspecified SNOMED: 95489517 Assessment/Plan no recurrence of hypoglycemia continue Levemir 8 units qhs continue Novolog sliding scale sensitive scale every 6 hours Continue Levothyroxine to 100 mcg daily - increased from 75 mcg on 09/09/17 repeat TSH in 2 weeks Subjective ROS Limited/Unobtainable: Yes Allergies: Coded Allergies: No Known Allergies (Unverified , 08/18/17) Subjective events noted - interval notes reviewed Objective Last 24 Hour Vital Signs Date Time Temp Pulse Resp B/P (MAP) Pulse Ox O2 Delivery O2 Flow Rate FiO2 09/14/17 04:00 97.5 82 18 137/98 92 Room Air 09/14/17 00:00 97.7 75 18 139/75 93 Room Air 09/13/17 22:18 97.3 09/13/17 21:00 Room Air 09/13/17 21:00 94 Room Air 09/13/17 20:03 97.3 77 18 140/72 91 Room Air 09/13/17 16:00 97.8 78 20 136/78 Nasal Cannula 09/13/17 12:46 97.3 75 18 132/68 99 Room Air 09/13/17 10:37 76 133/70 09/13/17 10:34 133/70 09/13/17 08:40 97.3 75 20 134/68 98 Room Air 09/13/17 07:15 Nasal Cannula 3.0 32 09/13/17 07:15 98 Nasal Cannula 3.0 32 Laboratory Tests 09/13/17 06:10: White Blood Count 26.1*H, Red Blood Count 3.55L, Hemoglobin 11.6L, Hematocrit 34.3L, Mean Corpuscular Volume 97, Mean Corpuscular Hemoglobin 32.6H, Mean Corpuscular Hemoglobin Concent 33.7, Red Cell Distribution Width 15.1H, Platelet Count 359, Mean Platelet Volume 7.9, Neutrophils (%) (Auto) , Lymphocytes (%) (Auto) , Monocytes (%) (Auto) , Eosinophils (%) (Auto) , Basophils (%) (Auto) , Differential Total Cells Counted 100, Neutrophils % ( Manual) 91H, Lymphocytes % (Manual) 3L, Monocytes % (Manual) 6, Eosinophils % ( Manual) 0, Basophils % (Manual) 0, Band Neutrophils 0, Platelet Estimate Adequate, Platelet Morphology Normal, Anisocytosis 1+, Sodium Level 135L, Potassium Level 3.8, Chloride Level 105, Carbon Dioxide Level 21, Anion Gap 10, Blood Urea Nitrogen 13, Creatinine 0.9, Estimat Glomerular Filtration Rate > 60 , Glucose Level 204#H, Calcium Level 7.9L 09/13/17 13:15: Vancomycin Level Trough 14.7H Height (Feet): 5 Height (Inches): 3.00 Weight (Pounds): 157 General Appearance: lethargic EENT: pale conjunctivae Neck: normal alignment Cardiovascular: normal rate Respiratory/Chest: decreased breath sounds Abdomen: normal bowel sounds Edema: 1+ Arm (L), 1+ Arm (R), 1+ Leg (L), 1+ Leg (R), 1+ Pedal (L), 1+ Pedal ( R), 1+ Generalized Objective Current Medications Medications (Trade) Dose Ordered Sig/Adonay Route PRN Reason Start Time Stop Time Status Last Admin Dose Admin Acetaminophen (Tylenol) 650 mg Q6H PRN ORAL Mild Pain/Temp > 100.5 09/09/17 19:00 09/18/17 18:59 09/10/17 20:49 Amlodipine Besylate (Norvasc) 10 mg DAILY NG 09/11/17 09:00 10/11/17 08:59 09/13/17 10:37 Ascorbic Acid (Vitamin C) 500 mg DAILY NG 09/10/17 09:00 09/22/17 08:59 09/13/17 10:45 Cefepime HCl 2 gm/ Sodium Chloride 110 ml @ 220 mls/hr Q24H IVPB 09/11/17 16:00 09/18/17 15:59 09/13/17 21:04 Chlorhexidine Gluconate (Carolina-Hex 2%) 1 applic DAILY@2000 TOPIC 09/14/17 20:00 10/14/17 19:59 Citalopram Hydrobromide (celeXA) 20 mg DAILY GT 09/10/17 09:00 09/18/17 08:59 09/13/17 10:21 Clonidine HCl (Catapres) 0.1 mg Q6H PRN NG SBP > 160mmHg 09/09/17 13:40 09/22/17 13:39 Dextrose (Dextrose 50%) STAT PRN IV Hypoglycemia 09/12/17 06:30 10/12/17 06:29 Dextrose/Sodium Chloride 1,000 ml @ 50 mls/hr Q20H IV 09/10/17 14:30 10/10/17 14:29 09/13/17 23:45 Enoxaparin Sodium (Lovenox) 70 mg Q12HR SUBQ 09/13/17 13:00 10/13/17 12:59 09/13/17 21:04 Insulin Aspart (NovoLOG) EVERY 6 HOURS SUBQ 09/12/17 06:30 10/12/17 06:29 09/13/17 00:00 Insulin Detemir (Levemir) 8 units QHS SUBQ 09/12/17 21:00 10/11/17 08:59 09/13/17 21:05 Lactulose (Cephulac) 30 gm THREE TIMES A DAY GT 09/10/17 10:15 10/10/17 10:14 09/11/17 08:26 Lansoprazole (Prevacid) 30 mg ACBREAKFAST NG 09/10/17 06:30 10/10/17 06:29 09/13/17 06:23 Levothyroxine Sodium (Synthroid) 100 mcg ACBREAKFAST NG 09/10/17 06:30 10/10/17 06:29 09/13/17 06:23 Losartan Potassium (Cozaar) 50 mg DAILY NG 09/10/17 09:00 09/22/17 08:59 09/13/17 10:34 Metoclopramide HCl (Reglan) 10 mg Q8HR IVP 09/10/17 08:45 10/10/17 08:44 09/13/17 21:03 Metronidazole 100 ml @ 100 mls/hr Q8H IVPB 09/10/17 18:00 09/17/17 17:59 09/14/17 01:33 Micafungin Sodium 100 mg/Sodium Chloride 100 ml @ 100 mls/hr Q24H IVPB 09/10/17 15:00 09/17/17 14:59 09/13/17 20:06 Multivitamins (Multivitamins) 1 tab DAILY ORAL 09/10/17 09:00 09/18/17 08:59 09/13/17 10:28 Ondansetron HCl (Zofran) 4 mg Q6H PRN NG Nausea & Vomiting 09/09/17 15:30 09/18/17 07:59 09/10/17 20:49 Oxycodone/ Acetaminophen (Percocet 5-325) 1 tab Q4H PRN ORAL Moderate to Severe Pain (4-10) 09/11/17 17:00 09/18/17 16:59 09/14/17 04:02 Quetiapine Fumarate (SEROquel) 12.5 mg Q12H PRN ORAL Agitation 09/09/17 13:45 09/29/17 13:44 09/10/17 20:49 Vancomycin HCl (Vanco rx to dose) 1 ea DAILY PRN MISC Per rx protocol 09/10/17 09:00 09/27/17 16:14 Vancomycin/Sodium Chloride 250 ml @ 166.667 mls/hr Q24H IVPB 09/13/17 14:00 09/17/17 13:59 09/13/17 17:09 Item Value Date Time Bedside Blood Glucose 136 mg/dl H 09/13/17 2345 Bedside Blood Glucose 95 mg/dl 09/13/17 210 Bedside Blood Glucose 88 mg/dl 09/13/17 1840 Bedside Blood Glucose 119 mg/dl 09/13/17 1202 KAYLEE DARNELL Sep 14, 2017 05:18
[2017-09-14 06:50] LABS: HEMATOCRIT 31.9 % (37.0-47.0); HEMOGLOBIN 10.8 G/DL (12.0-16.0); MEAN CORPUSCULAR VOLUME 97 FL (80-99); PLATELET COUNT 352 K/UL (150-450); RED CELL DISTRIBUTION WIDTH 15.8 % (11.6-14.8)
[2017-09-14 07:02] LABS: WHITE BLOOD COUNT 24.9 K/UL (4.8-10.8)
[2017-09-14 07:51] LABS: ANION GAP 8 mmol/L (5-15); BLOOD UREA NITROGEN 12 mg/dL (7-18); CALCIUM 7.5 MG/DL (8.5-10.1); CARBON DIOXIDE 24 MMOL/L (21-32); CHLORIDE 104 MMOL/L (98-107); CREATININE 0.7 MG/DL (0.55-1.30); POTASSIUM 3.6 MMOL/L (3.5-5.1); SODIUM 136 MMOL/L (136-145)
[2017-09-14 08:00] VITALS: BP 125/88
[2017-09-14] MEDS: Lactulose 20gm/30ml UDC GT SCH ×4 (08:44→18:00)
[2017-09-14] MEDS: Citalopram Hydrobromide 10mg Tab GT SCH (08:44)
[2017-09-14] MEDS: Ascorbic Acid 500mg tab NG SCH (08:46)
[2017-09-14] MEDS: Enoxaparin 80mg Inj SUBQ SCH (08:48)
[2017-09-14] MEDS: Losartan 50mg tab NG SCH (08:52)
--- NOTE | 2017-09-14 09:32 | Diagnostic Imaging Report ---
Indication: Shortness of breath Technique: One view of the chest Comparison: 09/11/2017 Findings: There is increasing pleural fluid on the left, now moderate in extent. There is also increasing consolidation in the left mid and lower lung. Infiltrates on the right have improved considerably, however. Extensive bilateral diffuse interstitial disease with bronchial wall thickening persists. There is now a left arm PICC present. There is left shoulder hardware Impression: Enlarging left-sided pleural effusion, over 3 days Increasing parenchymal consolidation on the left. Improving right-sided parenchymal consolidation Persistent background diffuse bilateral interstitial disease. Suspect significant chronic component
[2017-09-14] MEDS ORDERED: Tubing IV Secondary IV ONE ×2 (10:34→10:55)
--- NOTE | 2017-09-14 10:47 | Diagnostic Imaging Report ---
APPROVED REPORT CPT Code: 97295 Present Symptoms Lower Extremity Pain: Right Comments: Note: Technically difficult study due to patient status, stiff leg and pain. RIGHT LEG: Common femoral artery waveform analysis is abnormal, suggestive of iliac arterial occlusive disease. Color flow duplex sonography reveals an occlusion of the superficial femoral artery. The popliteal artery is also occluded. No flow was detected in the distal posterior tibial and dorsalis pedis arteries. The mid anterior tibial artery is patent. Doppler tibial artery waveform analysis is monophasic, consistent with critical ischemia at rest. LEFT LEG: Common femoral artery waveform analysis is abnormal, suggestive of iliac arterial occlusive disease. Color flow duplex sonography reveals patency of the femoral to popliteal bypass graft. There was no evidence of stenosis or occlusion within the graft. Distal tibial artery waveform analysis is compatible with moderate ischemia at rest. PRITI Townsend was notified of abnormal results at 1150 hours. IF THE REFERRING PHYSICIAN WOULD LIKE TO SPEAK TO THE INTERPRETING VASCULAR SURGEN PLEASE CALL [phone] DR. GONG
--- NOTE | 2017-09-14 10:47 | Diagnostic Imaging Report ---
APPROVED REPORT CPT Code: 64280 Present Symptoms Lower Extremity Pain: Right Comments: Note: Technically difficult study due to patient status, stiff leg and pain. RIGHT LEG: Common femoral artery waveform analysis is abnormal, suggestive of iliac arterial occlusive disease. Color flow duplex sonography reveals an occlusion of the superficial femoral artery. The popliteal artery is also occluded. No flow was detected in the distal posterior tibial and dorsalis pedis arteries. The mid anterior tibial artery is patent. Doppler tibial artery waveform analysis is monophasic, consistent with critical ischemia at rest. LEFT LEG: Common femoral artery waveform analysis is abnormal, suggestive of iliac arterial occlusive disease. Color flow duplex sonography reveals patency of the femoral to popliteal bypass graft. There was no evidence of stenosis or occlusion within the graft. Distal tibial artery waveform analysis is compatible with moderate ischemia at rest. PRITI Townsend was notified of abnormal results at 1150 hours. IF THE REFERRING PHYSICIAN WOULD LIKE TO SPEAK TO THE INTERPRETING VASCULAR SURGEN PLEASE CALL [phone] DR. GONG
--- NOTE | 2017-09-14 10:47 | Diagnostic Imaging Report ---
APPROVED REPORT CPT Code: 89813 Present Symptoms Lower Extremity Pain: Right Comments: Note: Technically difficult study due to patient status, stiff leg and pain. RIGHT LEG: Common femoral artery waveform analysis is abnormal, suggestive of iliac arterial occlusive disease. Color flow duplex sonography reveals an occlusion of the superficial femoral artery. The popliteal artery is also occluded. No flow was detected in the distal posterior tibial and dorsalis pedis arteries. The mid anterior tibial artery is patent. Doppler tibial artery waveform analysis is monophasic, consistent with critical ischemia at rest. LEFT LEG: Common femoral artery waveform analysis is abnormal, suggestive of iliac arterial occlusive disease. Color flow duplex sonography reveals patency of the femoral to popliteal bypass graft. There was no evidence of stenosis or occlusion within the graft. Distal tibial artery waveform analysis is compatible with moderate ischemia at rest. PRITI Townsend was notified of abnormal results at 1150 hours. IF THE REFERRING PHYSICIAN WOULD LIKE TO SPEAK TO THE INTERPRETING VASCULAR SURGEN PLEASE CALL [phone] DR. GONG
[2017-09-14] MEDS ORDERED: D5 1/2NS 1000ml IV ONE (10:55)
--- NOTE | 2017-09-14 11:01 | Infectious Diseases Prog Note ---
Assessment/Plan Assessment/Plan ASSESSMENT AND PLAN: 1. sepsis, klebsiella uti, mrsa pna, leukocytosis and hx fevers, ? c.diff - negative, aspiration risk, s/p g-tube, dwight glabrata fungal uti, fungemia, ct without abscess, right leg/foot ischemia/pad/occlusive dx - cefepime, iv vanco, flagyl, micafungin - check labs, check chest x-ray - surgery note reviewed - no decubitus infection, no abscess on aspiration - vascular surgery evaluation of right leg/foot ischemia - plan on amputation in d/w RN - surveillance blood cultures negative 2. The patient has history of diabetes. 3. Hypertension. 4. Anemia, hypernatremia 5. Respiratory insufficiency. 6. Blood sugar and blood pressure control per primary. 7. Diabetic ketoacidosis. 8. History of anxiety. 9. Depression. 10. Dementia. 11. Chronic pain syndrome. 12. Aspiration risk. 13. Altered mental status. 14. Poor historian. 15. No known allergies. 16. Social history is negative. 17. Family history is noncontributory. 18. MAR was noted. 19. Case was discussed with RN. 20. Notes and records were noted. 21. Skin care protocol. 22. I have reviewed the wounds. I do not think this is her source of sepsis. Continue local wound care protocol. wc - likely colonizer. 23. Continue treatment per Dr. Winn. Subjective Constitutional: Denies: fever HEENT: Denies: congestion Respiratory: Denies: shortness of breath Cardiovascular: Denies: chest pain Gastrointestinal/Abdominal: Denies: nausea, vomiting, diarrhea Genitourinary: Reports: other - + rowe Neurologic: Denies: headache Psychiatric: Reports: no symptoms Hematologic: Denies: bleeding Musculoskeletal: Denies: pain Allergies: Coded Allergies: No Known Allergies (Unverified , 08/18/17) Objective Vital Signs Last 24 Hour Vital Signs Date Time Temp Pulse Resp B/P (MAP) Pulse Ox O2 Delivery O2 Flow Rate FiO2 09/14/17 08:52 125/88 09/14/17 08:45 78 125/88 09/14/17 08:00 97.0 78 20 125/88 95 Room Air 09/14/17 05:01 97.7 09/14/17 04:00 97.5 82 18 137/98 92 Room Air 09/14/17 00:00 97.7 75 18 139/75 93 Room Air 09/13/17 21:00 Room Air 09/13/17 21:00 94 Room Air 09/13/17 20:03 97.3 77 18 140/72 91 Room Air 09/13/17 16:00 97.8 78 20 136/78 Nasal Cannula 09/13/17 12:46 97.3 75 18 132/68 99 Room Air Height (Feet): 5 Height (Inches): 3.00 Weight (Pounds): 163 General Appearance: no acute distress HEENT: normocephalic, atraumatic, anicteric, mucous membranes moist, EOMI, pharynx normal, supple, no JVD Respiratory/Chest: lungs clear, normal breath sounds, no respiratory distress, no accessory muscle use Cardiovascular: normal rate, regular rhythm, no gallop/murmur, no JVD Abdomen: normal bowel sounds, soft, non tender, no organomegaly, non distended Genitourinary: other - + rowe - urine slt cloudy Extremities: other - right foot with ischemia/cyanosis Skin: no rash 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 Gastrostomy in good position. Basilar reticular lung disease, nonspecific. Left basilar pneumonia versus atelectasis. Please correlate clinically. Atherosclerotic disease Rowe catheter in good position. Breathing motion artifact. Anasarca. Trace ascites 09/11- chest x-ray: Impression: Bilateral diffuse interstitial disease. Suspect mostly chronic, but there is possibly new or increased acute component in the retrocardiac region. Suspect small bilateral pleural effusions Arterial studies: right lower extremity occlusive disease noted, report noted Microbiology Date/Time Source Procedure Growth Status 09/11/17 14:45 Blood Blood Culture - Preliminary NO GROWTH AFTER 48 HOURS Resulted 09/11/17 14:40 Blood Blood Culture - Preliminary NO GROWTH AFTER 48 HOURS Resulted 09/13/17 06:30 Stool Clostridium difficile Toxin Assay - Final Complete Laboratory Tests Test 09/13/17 13:15 09/14/17 05:00 Vancomycin Level Trough 14.7 ug/mL (5.0-12.0) H White Blood Count 24.9 K/UL (4.8-10.8) *H Red Blood Count 3.30 M/UL (4.20-5.40) L Hemoglobin 10.8 G/DL (12.0-16.0) L Hematocrit 31.9 % (37.0-47.0) L Mean Corpuscular Volume 97 FL (80-99) Mean Corpuscular Hemoglobin 32.6 PG (27.0-31.0) H Mean Corpuscular Hemoglobin Concent 33.7 G/DL (32.0-36.0) Red Cell Distribution Width 15.8 % (11.6-14.8) H Platelet Count 352 K/UL (150-450) Mean Platelet Volume 7.5 FL (6.5-10.1) Neutrophils (%) (Auto) % (45.0-75.0) Lymphocytes (%) (Auto) % (20.0-45.0) Monocytes (%) (Auto) % (1.0-10.0) Eosinophils (%) (Auto) % (0.0-3.0) Basophils (%) (Auto) % (0.0-2.0) Differential Total Cells Counted 100 Neutrophils % (Manual) 92 % (45-75) H Lymphocytes % (Manual) 3 % (20-45) L Monocytes % (Manual) 5 % (1-10) Eosinophils % (Manual) 0 % (0-3) Basophils % (Manual) 0 % (0-2) Band Neutrophils 0 % (0-8) Platelet Estimate Adequate Platelet Morphology Normal Hypochromasia 1+ Anisocytosis 1+ Sodium Level 136 MMOL/L (136-145) Potassium Level 3.6 MMOL/L (3.5-5.1) Chloride Level 104 MMOL/L (98-107) Carbon Dioxide Level 24 MMOL/L (21-32) Anion Gap 8 mmol/L (5-15) Blood Urea Nitrogen 12 mg/dL (7-18) Creatinine 0.7 MG/DL (0.55-1.30) Estimat Glomerular Filtration Rate > 60 mL/min (>60) Glucose Level 117 MG/DL (74-106) H Calcium Level 7.5 MG/DL (8.5-10.1) L Current Medications Medications (Trade) Dose Ordered Sig/Adonay Route PRN Reason Start Time Stop Time Status Last Admin Dose Admin Acetaminophen (Tylenol) 650 mg Q6H PRN ORAL Mild Pain/Temp > 100.5 09/09/17 19:00 09/18/17 18:59 09/10/17 20:49 Amlodipine Besylate (Norvasc) 10 mg DAILY NG 09/11/17 09:00 10/11/17 08:59 09/14/17 08:45 Ascorbic Acid (Vitamin C) 500 mg DAILY NG 09/10/17 09:00 09/22/17 08:59 09/14/17 08:46 Cefepime HCl 2 gm/ Sodium Chloride 110 ml @ 220 mls/hr Q24H IVPB 09/11/17 16:00 09/18/17 15:59 09/13/17 21:04 Chlorhexidine Gluconate (Carolina-Hex 2%) 1 applic DAILY@2000 TOPIC 09/14/17 20:00 10/14/17 19:59 Citalopram Hydrobromide (celeXA) 20 mg DAILY GT 09/10/17 09:00 09/18/17 08:59 09/14/17 08:44 Clonidine HCl (Catapres) 0.1 mg Q6H PRN NG SBP > 160mmHg 09/09/17 13:40 09/22/17 13:39 Dextrose (Dextrose 50%) STAT PRN IV Hypoglycemia 09/12/17 06:30 10/12/17 06:29 Dextrose/Sodium Chloride 1,000 ml @ 50 mls/hr Q20H IV 09/10/17 14:30 10/10/17 14:29 09/13/17 23:45 Enoxaparin Sodium (Lovenox) 70 mg Q12HR SUBQ 09/13/17 13:00 10/13/17 12:59 09/14/17 08:48 Insulin Aspart (NovoLOG) EVERY 6 HOURS SUBQ 09/12/17 06:30 10/12/17 06:29 09/13/17 00:00 Insulin Detemir (Levemir) 8 units QHS SUBQ 09/12/17 21:00 10/11/17 08:59 09/13/17 21:05 Lactulose (Cephulac) 30 gm THREE TIMES A DAY GT 09/10/17 10:15 10/10/17 10:14 09/11/17 08:26 Lansoprazole (Prevacid) 30 mg ACBREAKFAST NG 09/10/17 06:30 10/10/17 06:29 09/14/17 05:18 Levothyroxine Sodium (Synthroid) 100 mcg ACBREAKFAST NG 09/10/17 06:30 10/10/17 06:29 09/14/17 05:18 Losartan Potassium (Cozaar) 50 mg DAILY NG 09/10/17 09:00 09/22/17 08:59 09/14/17 08:52 Metoclopramide HCl (Reglan) 10 mg Q8HR IVP 09/10/17 08:45 10/10/17 08:44 09/14/17 05:17 Metronidazole 100 ml @ 100 mls/hr Q8H IVPB 09/10/17 18:00 09/17/17 17:59 09/14/17 10:34 Micafungin Sodium 100 mg/Sodium Chloride 100 ml @ 100 mls/hr Q24H IVPB 09/10/17 15:00 09/17/17 14:59 09/13/17 20:06 Multivitamins (Multivitamins) 1 tab DAILY ORAL 09/10/17 09:00 09/18/17 08:59 09/14/17 08:45 Ondansetron HCl (Zofran) 4 mg Q6H PRN NG Nausea & Vomiting 09/09/17 15:30 09/18/17 07:59 09/10/17 20:49 Oxycodone/ Acetaminophen (Percocet 5-325) 1 tab Q4H PRN ORAL Moderate to Severe Pain (4-10) 09/11/17 17:00 09/18/17 16:59 09/14/17 04:02 Quetiapine Fumarate (SEROquel) 12.5 mg Q12H PRN ORAL Agitation 09/09/17 13:45 09/29/17 13:44 09/10/17 20:49 Vancomycin HCl (Vanco rx to dose) 1 ea DAILY PRN MISC Per rx protocol 09/10/17 09:00 09/27/17 16:14 Vancomycin/Sodium Chloride 250 ml @ 166.667 mls/hr Q24H IVPB 09/13/17 14:00 09/17/17 13:59 09/13/17 17:09 YASIR RUEDA Sep 14, 2017 11:01
[2017-09-14 11:47] VITALS: BP 128/76
--- NOTE | 2017-09-14 12:56 | Anethesia Preoperative Eval ---
Anesthesia Pre-op PMH/ROS General Date of Evaluation: Sep 14, 2017 Time of Evaluation: 12:07 Anesthesiologist: Nancy ASA Score: ASA 4 Mallampati Score Class I : Soft palate, uvula, fauces, pillars visible Class II: Soft palate, uvula, fauces visible Class III: Soft palate, base of uvula visible Class IV: Only hard plate visible Mallampati Classification: Class II Surgeon: Anjana Diagnosis: R Foot Ischemia Surgical Procedure: R BKA vs AKA Anesthesia History: none Family History: no anesthesia problems Allergies: Coded Allergies: No Known Allergies (Unverified , 08/18/17) Medications: see eMAR Past Medical History Cardiovascular: Reports: HTN Pulmonary: Reports: other - BiPAP Gastrointestinal/Genitourinary: Reports: GERD Neurologic/Psychiatric: Reports: dementia, CVA Endocrine: Reports: DM Hematology/Immune: Reports: anemia Musculoskeletal/Integumentary: Reports: other - R Foot Ischemia, Sacral Ulcer, Contactures PSxH Narrative: GI Procedures Anesthesia Pre-op Phys. Exam Physician Exam Last Vital Signs Date Time Temp Pulse Resp B/P (MAP) Pulse Ox O2 Delivery O2 Flow Rate FiO2 09/14/17 11:47 97.9 79 20 128/76 96 Room Air 09/13/17 07:15 3.0 32 Constitutional: NAD Neurologic: other Cardiovascular: RRR Respiratory: CTA Gastrointestinal: S/NT/ND Airway Exam Mallampati Score: Class II MO: limited ROM: limited Teeth: missing, intact Anesthesia Pre-op A/P Labs Hematology Test 09/14/17 05:00 White Blood Count 24.9 K/UL (4.8-10.8) *H Red Blood Count 3.30 M/UL (4.20-5.40) L Hemoglobin 10.8 G/DL (12.0-16.0) L Hematocrit 31.9 % (37.0-47.0) L Mean Corpuscular Volume 97 FL (80-99) Mean Corpuscular Hemoglobin 32.6 PG (27.0-31.0) H Mean Corpuscular Hemoglobin Concent 33.7 G/DL (32.0-36.0) Red Cell Distribution Width 15.8 % (11.6-14.8) H Platelet Count 352 K/UL (150-450) Mean Platelet Volume 7.5 FL (6.5-10.1) Neutrophils (%) (Auto) % (45.0-75.0) Lymphocytes (%) (Auto) % (20.0-45.0) Monocytes (%) (Auto) % (1.0-10.0) Eosinophils (%) (Auto) % (0.0-3.0) Basophils (%) (Auto) % (0.0-2.0) Differential Total Cells Counted 100 Neutrophils % (Manual) 92 % (45-75) H Lymphocytes % (Manual) 3 % (20-45) L Monocytes % (Manual) 5 % (1-10) Eosinophils % (Manual) 0 % (0-3) Basophils % (Manual) 0 % (0-2) Band Neutrophils 0 % (0-8) Platelet Estimate Adequate Platelet Morphology Normal Hypochromasia 1+ Anisocytosis 1+ Chemistry Test 09/14/17 05:00 Sodium Level 136 MMOL/L (136-145) Potassium Level 3.6 MMOL/L (3.5-5.1) Chloride Level 104 MMOL/L (98-107) Carbon Dioxide Level 24 MMOL/L (21-32) Anion Gap 8 mmol/L (5-15) Blood Urea Nitrogen 12 mg/dL (7-18) Creatinine 0.7 MG/DL (0.55-1.30) Estimat Glomerular Filtration Rate > 60 mL/min (>60) Glucose Level 117 MG/DL (74-106) H Calcium Level 7.5 MG/DL (8.5-10.1) L Risk Assessment & Plan Assessment: ASA 4 Plan: GA Status Change Before Surgery: No Pre-Antibiotics Drug: Aneesh Mejia MD Sep 14, 2017 12:56
[2017-09-14] MEDS: Vancomycin 750mg/NS 250ml 250 ML IVPB SCH (14:49)
[2017-09-14 16:00] VITALS: BP 96/42
--- NOTE | 2017-09-14 16:35 | Pulmonology Progress Note ---
Assessment/Plan Assessment/Plan DKA, resolved DM w hypoglycemia, now stable UTI sepsis htn anxiety, depression chronic pain on meds AMS, improved but still confused lactic acidosis respiratory failure, interstitial edema hypothyroid Fungemia RLE gangrene R BKA planned tomorrow Mycofungin per ID WBC better DM rx per Dr Andrade Xray R wrist pdg swallow eval labs reviewed disc w RN, insurance MD advisor Subjective ROS Limited/Unobtainable: Yes Allergies: Coded Allergies: No Known Allergies (Unverified , 08/18/17) Subjective pain all over Objective Last 24 Hour Vital Signs Date Time Temp Pulse Resp B/P (MAP) Pulse Ox O2 Delivery O2 Flow Rate FiO2 09/14/17 16:00 97.7 79 19 96/42 94 Nasal Cannula 2.0 09/14/17 11:47 97.9 79 20 128/76 96 Room Air 09/14/17 08:52 125/88 09/14/17 08:45 78 125/88 09/14/17 08:00 97.0 78 20 125/88 95 Room Air 09/14/17 05:01 97.7 09/14/17 04:00 97.5 82 18 137/98 92 Room Air 09/14/17 00:00 97.7 75 18 139/75 93 Room Air 09/13/17 21:00 Room Air 09/13/17 21:00 94 Room Air 09/13/17 20:03 97.3 77 18 140/72 91 Room Air Intake and Output 09/14/17 09/15/17 19:00 07:00 # Bowel Movements 1 Objective G tube, R wrist red, tender General Appearance: cachetic Respiratory/Chest: lungs clear Cardiovascular: normal rate Microbiology Date/Time Source Procedure Growth Status 09/13/17 06:30 Stool Clostridium difficile Toxin Assay - Final Complete Laboratory Tests 09/14/17 05:00: White Blood Count 24.9*H, Red Blood Count 3.30L, Hemoglobin 10.8L, Hematocrit 31.9L, Mean Corpuscular Volume 97, Mean Corpuscular Hemoglobin 32.6H, Mean Corpuscular Hemoglobin Concent 33.7, Red Cell Distribution Width 15.8H, Platelet Count 352, Mean Platelet Volume 7.5, Neutrophils (%) (Auto) , Lymphocytes (%) (Auto) , Monocytes (%) (Auto) , Eosinophils (%) (Auto) , Basophils (%) (Auto) , Differential Total Cells Counted 100, Neutrophils % ( Manual) 92H, Lymphocytes % (Manual) 3L, Monocytes % (Manual) 5, Eosinophils % ( Manual) 0, Basophils % (Manual) 0, Band Neutrophils 0, Platelet Estimate Adequate, Platelet Morphology Normal, Hypochromasia 1+, Anisocytosis 1+, Sodium Level 136, Potassium Level 3.6, Chloride Level 104, Carbon Dioxide Level 24, Anion Gap 8, Blood Urea Nitrogen 12, Creatinine 0.7, Estimat Glomerular Filtration Rate > 60, Glucose Level 117H, Calcium Level 7.5L Current Medications Medications (Trade) Dose Ordered Sig/Adonay Route PRN Reason Start Time Stop Time Status Last Admin Dose Admin Acetaminophen (Tylenol) 650 mg Q6H PRN ORAL Mild Pain/Temp > 100.5 09/09/17 19:00 09/18/17 18:59 09/10/17 20:49 Amlodipine Besylate (Norvasc) 10 mg DAILY NG 09/11/17 09:00 10/11/17 08:59 09/14/17 08:45 Ascorbic Acid (Vitamin C) 500 mg DAILY NG 09/10/17 09:00 09/22/17 08:59 09/14/17 08:46 Cefepime HCl 2 gm/ Sodium Chloride 110 ml @ 220 mls/hr Q24H IVPB 09/11/17 16:00 09/18/17 15:59 09/13/17 21:04 Chlorhexidine Gluconate (Carolina-Hex 2%) 1 applic DAILY@2000 TOPIC 09/14/17 20:00 10/14/17 19:59 Citalopram Hydrobromide (celeXA) 20 mg DAILY GT 09/10/17 09:00 09/18/17 08:59 09/14/17 08:44 Clonidine HCl (Catapres) 0.1 mg Q6H PRN NG SBP > 160mmHg 09/09/17 13:40 09/22/17 13:39 Dextrose (Dextrose 50%) STAT PRN IV Hypoglycemia 09/12/17 06:30 10/12/17 06:29 Dextrose/Sodium Chloride 1,000 ml @ 50 mls/hr Q20H IV 09/10/17 14:30 10/10/17 14:29 09/13/17 23:45 Enoxaparin Sodium (Lovenox) 70 mg Q12HR SUBQ 09/14/17 21:00 10/14/17 20:59 Insulin Aspart (NovoLOG) EVERY 6 HOURS SUBQ 09/12/17 06:30 10/12/17 06:29 09/13/17 00:00 Insulin Detemir (Levemir) 8 units QHS SUBQ 09/12/17 21:00 10/11/17 08:59 09/13/17 21:05 Lactulose (Cephulac) 30 gm THREE TIMES A DAY GT 09/10/17 10:15 10/10/17 10:14 09/11/17 08:26 Lansoprazole (Prevacid) 30 mg ACBREAKFAST NG 09/10/17 06:30 10/10/17 06:29 09/14/17 05:18 Levothyroxine Sodium (Synthroid) 100 mcg ACBREAKFAST NG 09/10/17 06:30 10/10/17 06:29 09/14/17 05:18 Losartan Potassium (Cozaar) 50 mg DAILY NG 09/10/17 09:00 09/22/17 08:59 09/14/17 08:52 Metoclopramide HCl (Reglan) 5 mg Q8HR IVP 09/14/17 22:00 10/10/17 08:44 Metronidazole 100 ml @ 100 mls/hr Q8H IVPB 09/10/17 18:00 09/17/17 17:59 09/14/17 10:34 Micafungin Sodium 100 mg/Sodium Chloride 100 ml @ 100 mls/hr Q24H IVPB 09/10/17 15:00 09/17/17 14:59 09/13/17 20:06 Multivitamins (Multivitamins) 1 tab DAILY ORAL 09/10/17 09:00 09/18/17 08:59 09/14/17 08:45 Ondansetron HCl (Zofran) 4 mg Q6H PRN NG Nausea & Vomiting 09/09/17 15:30 09/18/17 07:59 09/10/17 20:49 Oxycodone/ Acetaminophen (Percocet 5-325) 1 tab Q4H PRN ORAL Moderate to Severe Pain (4-10) 09/11/17 17:00 09/18/17 16:59 09/14/17 15:07 Quetiapine Fumarate (SEROquel) 12.5 mg Q12H PRN NG Agitation 09/14/17 15:00 09/29/17 13:44 Vancomycin HCl (Vanco rx to dose) 1 ea DAILY PRN MISC Per rx protocol 09/10/17 09:00 09/27/17 16:14 Vancomycin/Sodium Chloride 250 ml @ 166.667 mls/hr Q24H IVPB 09/13/17 14:00 09/17/17 13:59 09/14/17 14:49 PATRICIA LUGO Sep 14, 2017 16:34
[2017-09-14] MEDS: Cefepime HCl 2 GM in NS 110 ML IVPB SCH (18:09)
[2017-09-14] MEDS: D5 1/2NS 1,000 ML IV SCH (18:53)
--- NOTE | 2017-09-14 19:50 | General Progress Note ---
Assessment/Plan Assessment/Plan Assessment - Respiratory failure - leukocytosis - Anemia - tube feed intolerance - IDDM - s/p PEG - (R) LE ischemia Recommendations - Advance feeds - monitor residuals - GT care - Elevate HOB - abx - surgical plans Subjective Allergies: Coded Allergies: No Known Allergies (Unverified , 08/18/17) Subjective above noted tolerating TF well surgical plans noted Objective Last 24 Hour Vital Signs Date Time Temp Pulse Resp B/P (MAP) Pulse Ox O2 Delivery O2 Flow Rate FiO2 09/14/17 16:00 97.7 79 19 96/42 94 Nasal Cannula 2.0 09/14/17 11:47 97.9 79 20 128/76 96 Room Air 09/14/17 08:52 125/88 09/14/17 08:45 78 125/88 09/14/17 08:00 97.0 78 20 125/88 95 Room Air 09/14/17 05:01 97.7 09/14/17 04:00 97.5 82 18 137/98 92 Room Air 09/14/17 00:00 97.7 75 18 139/75 93 Room Air 09/13/17 21:00 Room Air 09/13/17 21:00 94 Room Air 09/13/17 20:03 97.3 77 18 140/72 91 Room Air Intake and Output 09/14/17 09/15/17 19:00 07:00 # Voids 2 # Bowel Movements 1 Laboratory Tests 09/14/17 05:00: White Blood Count 24.9*H, Red Blood Count 3.30L, Hemoglobin 10.8L, Hematocrit 31.9L, Mean Corpuscular Volume 97, Mean Corpuscular Hemoglobin 32.6H, Mean Corpuscular Hemoglobin Concent 33.7, Red Cell Distribution Width 15.8H, Platelet Count 352, Mean Platelet Volume 7.5, Neutrophils (%) (Auto) , Lymphocytes (%) (Auto) , Monocytes (%) (Auto) , Eosinophils (%) (Auto) , Basophils (%) (Auto) , Differential Total Cells Counted 100, Neutrophils % ( Manual) 92H, Lymphocytes % (Manual) 3L, Monocytes % (Manual) 5, Eosinophils % ( Manual) 0, Basophils % (Manual) 0, Band Neutrophils 0, Platelet Estimate Adequate, Platelet Morphology Normal, Hypochromasia 1+, Anisocytosis 1+, Sodium Level 136, Potassium Level 3.6, Chloride Level 104, Carbon Dioxide Level 24, Anion Gap 8, Blood Urea Nitrogen 12, Creatinine 0.7, Estimat Glomerular Filtration Rate > 60, Glucose Level 117H, Calcium Level 7.5L Height (Feet): 5 Height (Inches): 3.00 Weight (Pounds): 163 Objective Thin AA woman NCAT Neck supple Chest: b/l coarse BS RRR soft mild distention and TTP, (+) GT RLE ischemic changes ERIKA ESPINOSA Sep 14, 2017 19:50
[2017-09-14 20:00] VITALS: BP 134/73
--- NOTE | 2017-09-14 20:27 | General Progress Note ---
Assessment/Plan Status: stable, progressing Assessment/Plan agitated at times much improved Subjective Neurologic/Psychiatric: Reports: anxiety, depressed, emotional problems Allergies: Coded Allergies: No Known Allergies (Unverified , 08/18/17) Subjective calm no agitation Objective Last 24 Hour Vital Signs Date Time Temp Pulse Resp B/P (MAP) Pulse Ox O2 Delivery O2 Flow Rate FiO2 09/14/17 16:00 97.7 79 19 96/42 94 Nasal Cannula 2.0 09/14/17 11:47 97.9 79 20 128/76 96 Room Air 09/14/17 08:52 125/88 09/14/17 08:45 78 125/88 09/14/17 08:00 97.0 78 20 125/88 95 Room Air 09/14/17 05:01 97.7 09/14/17 04:00 97.5 82 18 137/98 92 Room Air 09/14/17 00:00 97.7 75 18 139/75 93 Room Air 09/13/17 21:00 Room Air 09/13/17 21:00 94 Room Air Intake and Output 09/14/17 09/15/17 19:00 07:00 # Voids 2 # Bowel Movements 1 Laboratory Tests 09/14/17 05:00: White Blood Count 24.9*H, Red Blood Count 3.30L, Hemoglobin 10.8L, Hematocrit 31.9L, Mean Corpuscular Volume 97, Mean Corpuscular Hemoglobin 32.6H, Mean Corpuscular Hemoglobin Concent 33.7, Red Cell Distribution Width 15.8H, Platelet Count 352, Mean Platelet Volume 7.5, Neutrophils (%) (Auto) , Lymphocytes (%) (Auto) , Monocytes (%) (Auto) , Eosinophils (%) (Auto) , Basophils (%) (Auto) , Differential Total Cells Counted 100, Neutrophils % ( Manual) 92H, Lymphocytes % (Manual) 3L, Monocytes % (Manual) 5, Eosinophils % ( Manual) 0, Basophils % (Manual) 0, Band Neutrophils 0, Platelet Estimate Adequate, Platelet Morphology Normal, Hypochromasia 1+, Anisocytosis 1+, Sodium Level 136, Potassium Level 3.6, Chloride Level 104, Carbon Dioxide Level 24, Anion Gap 8, Blood Urea Nitrogen 12, Creatinine 0.7, Estimat Glomerular Filtration Rate > 60, Glucose Level 117H, Calcium Level 7.5L Height (Feet): 5 Height (Inches): 3.00 Weight (Pounds): 163 General Appearance: no apparent distress, alert Neurologic: alert, responsive, normal mood/affect Audi Bonilla M.D. Sep 14, 2017 20:26
[2017-09-14] MEDS: Levemir Flexpen SUBQ SCH (21:00)
[2017-09-14] MEDS: Enoxaparin Sodium 300mg/3ml vial SUBQ SCH (21:00)
[2017-09-14] MEDS: Dyna-Hex 2% Top Sol 2oz TOPIC SCH (21:07)
[2017-09-15] VITALS (13 sets, daily range): BP systolic 116–142; BP diastolic 65–88
--- NOTE | 2017-09-15 05:23 | General Progress Note ---
Assessment/Plan Problem List: (1) DKA (diabetic ketoacidoses) ICD Codes: E13.10 - Other specified diabetes mellitus with ketoacidosis without coma SNOMED: 78949781, 141910471 (2) Altered level of consciousness ICD Codes: R40.4 - Transient alteration of awareness SNOMED: 4751972 (3) Hyperkalemia ICD Codes: E87.5 - Hyperkalemia SNOMED: 15886080 (4) Rhabdomyolysis ICD Codes: M62.82 - Rhabdomyolysis SNOMED: 921332527, 187761515 (5) Diabetes mellitus out of control ICD Codes: E11.65 - Type 2 diabetes mellitus with hyperglycemia SNOMED: 257236747, 49385011 (6) Sepsis ICD Codes: A41.9 - Sepsis, unspecified organism SNOMED: 38227306 (7) Hypothyroidism ICD Codes: E03.9 - Hypothyroidism, unspecified SNOMED: 11494928 Assessment/Plan hold Levemir 8 units while TF is on hold continue Novolog sliding scale sensitive scale every 6 hours Continue Levothyroxine to 100 mcg daily - increased from 75 mcg on 09/09/17 repeat TSH in 2 weeks Subjective ROS Limited/Unobtainable: Yes Allergies: Coded Allergies: No Known Allergies (Unverified , 08/18/17) Subjective TF on hold for amputation Levemir was held last night Objective Last 24 Hour Vital Signs Date Time Temp Pulse Resp B/P (MAP) Pulse Ox O2 Delivery O2 Flow Rate FiO2 09/15/17 04:00 98.1 83 20 128/69 96 Nasal Cannula 2.0 09/15/17 00:00 97.6 83 18 139/82 95 09/14/17 21:30 Nasal Cannula 3.0 32 09/14/17 21:29 93 Nasal Cannula 2.0 28 09/14/17 20:00 97.9 75 20 134/73 95 Nasal Cannula 2.0 09/14/17 16:00 97.7 79 19 96/42 94 Nasal Cannula 2.0 09/14/17 11:47 97.9 79 20 128/76 96 Room Air 09/14/17 08:52 125/88 09/14/17 08:45 78 125/88 09/14/17 08:00 97.0 78 20 125/88 95 Room Air Height (Feet): 5 Height (Inches): 3.00 Weight (Pounds): 163 General Appearance: lethargic Neck: normal alignment Cardiovascular: normal rate Respiratory/Chest: decreased breath sounds Objective Item Value Date Time Bedside Blood Glucose 204 mg/dl H 09/15/17 0000 Bedside Blood Glucose 201 mg/dl H 09/14/17 2100 Bedside Blood Glucose 218 mg/dl H 09/14/17 1835 Bedside Blood Glucose 151 mg/dl H 09/14/17 1213 KAYLEE DARNELL Sep 15, 2017 05:23
--- NOTE | 2017-09-15 05:23 | General Progress Note ---
Assessment/Plan Problem List: (1) DKA (diabetic ketoacidoses) ICD Codes: E13.10 - Other specified diabetes mellitus with ketoacidosis without coma SNOMED: 18577765, 665742376 (2) Altered level of consciousness ICD Codes: R40.4 - Transient alteration of awareness SNOMED: 5256909 (3) Hyperkalemia ICD Codes: E87.5 - Hyperkalemia SNOMED: 82385141 (4) Rhabdomyolysis ICD Codes: M62.82 - Rhabdomyolysis SNOMED: 576022068, 476161551 (5) Diabetes mellitus out of control ICD Codes: E11.65 - Type 2 diabetes mellitus with hyperglycemia SNOMED: 175052791, 99260068 (6) Sepsis ICD Codes: A41.9 - Sepsis, unspecified organism SNOMED: 89702370 (7) Hypothyroidism ICD Codes: E03.9 - Hypothyroidism, unspecified SNOMED: 54758682 Assessment/Plan hold Levemir 8 units while TF is on hold continue Novolog sliding scale sensitive scale every 6 hours Continue Levothyroxine to 100 mcg daily - increased from 75 mcg on 09/09/17 repeat TSH in 2 weeks Subjective ROS Limited/Unobtainable: Yes Allergies: Coded Allergies: No Known Allergies (Unverified , 08/18/17) Subjective TF on hold for amputation Levemir was held last night Objective Last 24 Hour Vital Signs Date Time Temp Pulse Resp B/P (MAP) Pulse Ox O2 Delivery O2 Flow Rate FiO2 09/15/17 04:00 98.1 83 20 128/69 96 Nasal Cannula 2.0 09/15/17 00:00 97.6 83 18 139/82 95 09/14/17 21:30 Nasal Cannula 3.0 32 09/14/17 21:29 93 Nasal Cannula 2.0 28 09/14/17 20:00 97.9 75 20 134/73 95 Nasal Cannula 2.0 09/14/17 16:00 97.7 79 19 96/42 94 Nasal Cannula 2.0 09/14/17 11:47 97.9 79 20 128/76 96 Room Air 09/14/17 08:52 125/88 09/14/17 08:45 78 125/88 09/14/17 08:00 97.0 78 20 125/88 95 Room Air Height (Feet): 5 Height (Inches): 3.00 Weight (Pounds): 163 General Appearance: lethargic Neck: normal alignment Cardiovascular: normal rate Respiratory/Chest: decreased breath sounds Objective Item Value Date Time Bedside Blood Glucose 204 mg/dl H 09/15/17 0000 Bedside Blood Glucose 201 mg/dl H 09/14/17 2100 Bedside Blood Glucose 218 mg/dl H 09/14/17 1835 Bedside Blood Glucose 151 mg/dl H 09/14/17 1213 KAYLEE DARNELL Sep 15, 2017 05:23
--- NOTE | 2017-09-15 05:23 | General Progress Note ---
Assessment/Plan Problem List: (1) DKA (diabetic ketoacidoses) ICD Codes: E13.10 - Other specified diabetes mellitus with ketoacidosis without coma SNOMED: 60873233, 547345297 (2) Altered level of consciousness ICD Codes: R40.4 - Transient alteration of awareness SNOMED: 7941368 (3) Hyperkalemia ICD Codes: E87.5 - Hyperkalemia SNOMED: 48142991 (4) Rhabdomyolysis ICD Codes: M62.82 - Rhabdomyolysis SNOMED: 141521055, 795102359 (5) Diabetes mellitus out of control ICD Codes: E11.65 - Type 2 diabetes mellitus with hyperglycemia SNOMED: 528015259, 43769112 (6) Sepsis ICD Codes: A41.9 - Sepsis, unspecified organism SNOMED: 64744604 (7) Hypothyroidism ICD Codes: E03.9 - Hypothyroidism, unspecified SNOMED: 37567139 Assessment/Plan hold Levemir 8 units while TF is on hold continue Novolog sliding scale sensitive scale every 6 hours Continue Levothyroxine to 100 mcg daily - increased from 75 mcg on 09/09/17 repeat TSH in 2 weeks Subjective ROS Limited/Unobtainable: Yes Allergies: Coded Allergies: No Known Allergies (Unverified , 08/18/17) Subjective TF on hold for amputation Levemir was held last night Objective Last 24 Hour Vital Signs Date Time Temp Pulse Resp B/P (MAP) Pulse Ox O2 Delivery O2 Flow Rate FiO2 09/15/17 04:00 98.1 83 20 128/69 96 Nasal Cannula 2.0 09/15/17 00:00 97.6 83 18 139/82 95 09/14/17 21:30 Nasal Cannula 3.0 32 09/14/17 21:29 93 Nasal Cannula 2.0 28 09/14/17 20:00 97.9 75 20 134/73 95 Nasal Cannula 2.0 09/14/17 16:00 97.7 79 19 96/42 94 Nasal Cannula 2.0 09/14/17 11:47 97.9 79 20 128/76 96 Room Air 09/14/17 08:52 125/88 09/14/17 08:45 78 125/88 09/14/17 08:00 97.0 78 20 125/88 95 Room Air Height (Feet): 5 Height (Inches): 3.00 Weight (Pounds): 163 General Appearance: lethargic Neck: normal alignment Cardiovascular: normal rate Respiratory/Chest: decreased breath sounds Objective Item Value Date Time Bedside Blood Glucose 204 mg/dl H 09/15/17 0000 Bedside Blood Glucose 201 mg/dl H 09/14/17 2100 Bedside Blood Glucose 218 mg/dl H 09/14/17 1835 Bedside Blood Glucose 151 mg/dl H 09/14/17 1213 KAYLEE DARNELL Sep 15, 2017 05:23
[2017-09-15] MEDS: NovoLOG Insulin Flexpen SUBQ SCH ×5 (06:00→23:46)
[2017-09-15] MEDS: Metoclopramide 10mg/2ml Inj IVP SCH ×3 (06:21→21:59)
[2017-09-15] MEDS: oxyCODONE HCL/Acetaminophen 5/325mg ORAL PRN ×3 (06:34→21:50)
[2017-09-15 07:50] LABS: HEMATOCRIT 32.1 % (37.0-47.0); HEMOGLOBIN 10.7 G/DL (12.0-16.0); MEAN CORPUSCULAR VOLUME 97 FL (80-99); PLATELET COUNT 383 K/UL (150-450); RED BLOOD COUNT 3.31 M/UL (4.20-5.40); RED CELL DISTRIBUTION WIDTH 15.8 % (11.6-14.8)
[2017-09-15 07:56] LABS: WHITE BLOOD COUNT 22.9 K/UL (4.8-10.8)
[2017-09-15 07:59] LABS: INR 1.4 (0.9-1.1)
[2017-09-15 08:16] LABS: ANION GAP 7 mmol/L (5-15); BLOOD UREA NITROGEN 11 mg/dL (7-18); CALCIUM 7.5 MG/DL (8.5-10.1); CARBON DIOXIDE 26 MMOL/L (21-32); CHLORIDE 102 MMOL/L (98-107); CREATININE 0.8 MG/DL (0.55-1.30); POTASSIUM 3.6 MMOL/L (3.5-5.1); SODIUM 134 MMOL/L (136-145)
[2017-09-15] MEDS: Citalopram Hydrobromide 10mg Tab GT SCH (08:22)
[2017-09-15] MEDS: Ascorbic Acid 500mg tab NG SCH (08:24)
[2017-09-15] MEDS: Lactulose 20gm/30ml UDC GT SCH ×3 (08:24→17:51)
[2017-09-15] MEDS: Losartan 50mg tab NG SCH (08:28)
[2017-09-15] MEDS: Enoxaparin Sodium 300mg/3ml vial SUBQ SCH ×2 (08:28→21:00)
[2017-09-15] MEDS ORDERED: Bacitracin Oint 15gm Tube TOPIC ONE (11:47)
--- NOTE | 2017-09-15 12:36 | Pre-Procedure Note/Attestation ---
Pre-Procedure Note/Attestation Complete Prior to Procedure Planned Procedure: right Procedure Narrative: below-knee, possible above-knee amputation Indications for Procedure Pre-Operative Diagnosis: right foot gangrene; ischemic leg Attestation I attest that I discussed the nature of the procedure; its benefits; risks and complications; and alternatives (and the risks and benefits of such alternatives ), prior to the procedure, with the patient (or the patient's legal construction sales representative). I attest that, if there was a reasonable possibility of needing a blood transfusion, the patient (or the patient's legal construction sales representative) was given the [facility] standardized written summary, pursuant to the Ricky [place] Blood Safety Act ([place] Health and Safety Code # 1645, as amended). I attest that I re-evaluated the patient just prior to the surgery and that there has been no change in the patient's H&P, except as documented below: ARNALDO GONG Sep 15, 2017 12:36
--- NOTE | 2017-09-15 12:36 | Pre-Procedure Note/Attestation ---
Pre-Procedure Note/Attestation Complete Prior to Procedure Planned Procedure: right Procedure Narrative: below-knee, possible above-knee amputation Indications for Procedure Pre-Operative Diagnosis: right foot gangrene; ischemic leg Attestation I attest that I discussed the nature of the procedure; its benefits; risks and complications; and alternatives (and the risks and benefits of such alternatives ), prior to the procedure, with the patient (or the patient's legal insurance representative). I attest that, if there was a reasonable possibility of needing a blood transfusion, the patient (or the patient's legal insurance representative) was given the [facility] standardized written summary, pursuant to the Ricky [place] Blood Safety Act ([place] Health and Safety Code # 1645, as amended). I attest that I re-evaluated the patient just prior to the surgery and that there has been no change in the patient's H&P, except as documented below: ARNALDO GONG Sep 15, 2017 12:36
--- NOTE | 2017-09-15 12:36 | Pre-Procedure Note/Attestation ---
Pre-Procedure Note/Attestation Complete Prior to Procedure Planned Procedure: right Procedure Narrative: below-knee, possible above-knee amputation Indications for Procedure Pre-Operative Diagnosis: right foot gangrene; ischemic leg Attestation I attest that I discussed the nature of the procedure; its benefits; risks and complications; and alternatives (and the risks and benefits of such alternatives ), prior to the procedure, with the patient (or the patient's legal tax representative). I attest that, if there was a reasonable possibility of needing a blood transfusion, the patient (or the patient's legal tax representative) was given the [facility] standardized written summary, pursuant to the [place] Blood Safety Act ([place] Health and Safety Code # 1645, as amended). I attest that I re-evaluated the patient just prior to the surgery and that there has been no change in the patient's H&P, except as documented below: ARNALDO GONG Sep 15, 2017 12:36
[2017-09-15] MEDS ORDERED: Midazolam 2mg/2ml Inj ONE (12:40)
[2017-09-15] MEDS ORDERED: Glycopyrrolate 0.2mg/ml 1ml Vial ONE (12:40)
[2017-09-15] MEDS ORDERED: Sterile Water Irrig 1000ml IRRIG ONE (12:40)
[2017-09-15] MEDS ORDERED: Zemuron 50mg/5ml Inj IV ONE (12:40)
[2017-09-15] MEDS ORDERED: Propofol 200mg/20ml IV ONE (12:40)
[2017-09-15] MEDS ORDERED: LR 1000ml ONE (12:40)
[2017-09-15] MEDS ORDERED: Phenylephrine 10mg/ml Vial ONE (12:40)
[2017-09-15] MEDS ORDERED: fentaNYL 100 mcg/2 mL IV ONE (12:40)
[2017-09-15] MEDS ORDERED: Neostigmine 1mg/ml 10ml Inj ONE (12:40)
[2017-09-15] MEDS ORDERED: NeoSporin Gu Irrig 1ml Amp IRRIG ONE (12:42)
[2017-09-15] MEDS ORDERED: NS Irrig 1000ml IRRIG ONE (12:42)
[2017-09-15] MEDS ORDERED: Bacitracin 50000 Units Vial IRRIG ONE (12:42)
--- NOTE | 2017-09-15 12:48 | General Progress Note ---
Progress Note Progress Note Pt will undergo a right BK vs AK amputation as per Dr De's care. We will sign off the case. Jesus Hebert MD Sep 15, 2017 12:48
[2017-09-15] MEDS ORDERED: LR 1000ml 1,000 ML IVLG SCH ×2 (13:33→14:47)
[2017-09-15] MEDS ORDERED: Midazolam 2mg/2ml Inj IVP PRN ×2 (13:45→15:00)
[2017-09-15] MEDS ORDERED: Hydromorphone 0.5mg/0.5ml inj IVP PRN ×2 (13:45→15:00)
[2017-09-15] MEDS ORDERED: DiphenhydrAMINE 50mg/ml Inj IVP PRN ×2 (13:45→15:00)
--- NOTE | 2017-09-15 14:24 | General Progress Note ---
Assessment/Plan Assessment/Plan Assessment - Respiratory failure - leukocytosis - Anemia - tube feed intolerance - IDDM - s/p PEG - (R) LE ischemia Recommendations - Advance feeds - monitor residuals - GT care - Elevate HOB - abx - await surgery Subjective Allergies: Coded Allergies: No Known Allergies (Unverified , 08/18/17) Subjective above noted tolerating TF well await surgery Objective Last 24 Hour Vital Signs Date Time Temp Pulse Resp B/P (MAP) Pulse Ox O2 Delivery O2 Flow Rate FiO2 09/15/17 12:00 97.9 78 20 134/72 99 Nasal Cannula 2.0 09/15/17 09:13 94 Nasal Cannula 2.0 28 09/15/17 09:13 Nasal Cannula 2.0 28 09/15/17 08:28 78 142/65 09/15/17 08:28 142/65 09/15/17 08:00 97.5 78 20 142/65 93 Nasal Cannula 2.0 09/15/17 04:00 98.1 83 20 128/69 96 Nasal Cannula 2.0 09/15/17 00:00 97.6 83 18 139/82 95 09/14/17 21:30 Nasal Cannula 3.0 32 09/14/17 21:29 93 Nasal Cannula 2.0 28 09/14/17 20:00 97.9 75 20 134/73 95 Nasal Cannula 2.0 09/14/17 16:00 97.7 79 19 96/42 94 Nasal Cannula 2.0 Intake and Output 09/15/17 09/16/17 19:00 07:00 Output Total 575 ml Balance -575 ml Output Urine Total 575 ml Laboratory Tests 09/15/17 05:20: White Blood Count 22.9*H, Red Blood Count 3.31L, Hemoglobin 10.7L, Hematocrit 32.1L, Mean Corpuscular Volume 97, Mean Corpuscular Hemoglobin 32.2H, Mean Corpuscular Hemoglobin Concent 33.2, Red Cell Distribution Width 15.8H, Platelet Count 383, Mean Platelet Volume 7.4, Neutrophils (%) (Auto) , Lymphocytes (%) (Auto) , Monocytes (%) (Auto) , Eosinophils (%) (Auto) , Basophils (%) (Auto) , Differential Total Cells Counted 100, Neutrophils % ( Manual) 89H, Lymphocytes % (Manual) 5L, Monocytes % (Manual) 6, Eosinophils % ( Manual) 0, Basophils % (Manual) 0, Band Neutrophils 0, Platelet Estimate Adequate, Platelet Morphology Normal, Hypochromasia 1+, Anisocytosis 1+, Prothrombin Time 14.7H, Prothromb Time International Ratio 1.4H, Activated Partial Thromboplast Time 53H, Sodium Level 134L, Potassium Level 3.6, Chloride Level 102, Carbon Dioxide Level 26, Anion Gap 7, Blood Urea Nitrogen 11, Creatinine 0.8, Estimat Glomerular Filtration Rate > 60, Glucose Level 212H, Calcium Level 7.5L 09/15/17 13:12: Body Fluid Source [Pending], Body Fluid Volume [Pending], Body Fluid Appearance [Pending], Body Fluid RBC [Pending], Body Fluid Total Nucleated Cells [Pending] , Body Fluid Polynuclear WBCs (%) [Pending], Body Fluid Mononuclear WBCs (%) [ Pending], Body Fluid Mesothelial Cells (%) [Pending] Height (Feet): 5 Height (Inches): 3.00 Weight (Pounds): 157 Objective Thin AA woman NCAT Neck supple Chest: b/l coarse BS RRR soft mild distention and TTP, (+) GT RLE ischemic changes ERIKA ESPINOSA Sep 15, 2017 14:24
--- NOTE | 2017-09-15 14:37 | General Progress Note ---
Assessment/Plan Status: stable Assessment/Plan agitated at times much improved Subjective Neurologic/Psychiatric: Reports: anxiety, depressed, emotional problems Allergies: Coded Allergies: No Known Allergies (Unverified , 08/18/17) Subjective calm no agitation Objective Last 24 Hour Vital Signs Date Time Temp Pulse Resp B/P (MAP) Pulse Ox O2 Delivery O2 Flow Rate FiO2 09/15/17 12:00 97.9 78 20 134/72 99 Nasal Cannula 2.0 09/15/17 09:13 94 Nasal Cannula 2.0 28 09/15/17 09:13 Nasal Cannula 2.0 28 09/15/17 08:28 78 142/65 09/15/17 08:28 142/65 09/15/17 08:00 97.5 78 20 142/65 93 Nasal Cannula 2.0 09/15/17 04:00 98.1 83 20 128/69 96 Nasal Cannula 2.0 09/15/17 00:00 97.6 83 18 139/82 95 09/14/17 21:30 Nasal Cannula 3.0 32 09/14/17 21:29 93 Nasal Cannula 2.0 28 09/14/17 20:00 97.9 75 20 134/73 95 Nasal Cannula 2.0 09/14/17 16:00 97.7 79 19 96/42 94 Nasal Cannula 2.0 Intake and Output 09/15/17 09/16/17 19:00 07:00 Output Total 575 ml Balance -575 ml Output Urine Total 575 ml Laboratory Tests 09/15/17 05:20: White Blood Count 22.9*H, Red Blood Count 3.31L, Hemoglobin 10.7L, Hematocrit 32.1L, Mean Corpuscular Volume 97, Mean Corpuscular Hemoglobin 32.2H, Mean Corpuscular Hemoglobin Concent 33.2, Red Cell Distribution Width 15.8H, Platelet Count 383, Mean Platelet Volume 7.4, Neutrophils (%) (Auto) , Lymphocytes (%) (Auto) , Monocytes (%) (Auto) , Eosinophils (%) (Auto) , Basophils (%) (Auto) , Differential Total Cells Counted 100, Neutrophils % ( Manual) 89H, Lymphocytes % (Manual) 5L, Monocytes % (Manual) 6, Eosinophils % ( Manual) 0, Basophils % (Manual) 0, Band Neutrophils 0, Platelet Estimate Adequate, Platelet Morphology Normal, Hypochromasia 1+, Anisocytosis 1+, Prothrombin Time 14.7H, Prothromb Time International Ratio 1.4H, Activated Partial Thromboplast Time 53H, Sodium Level 134L, Potassium Level 3.6, Chloride Level 102, Carbon Dioxide Level 26, Anion Gap 7, Blood Urea Nitrogen 11, Creatinine 0.8, Estimat Glomerular Filtration Rate > 60, Glucose Level 212H, Calcium Level 7.5L 09/15/17 13:12: Body Fluid Source [Pending], Body Fluid Volume [Pending], Body Fluid Appearance [Pending], Body Fluid RBC [Pending], Body Fluid Total Nucleated Cells [Pending] , Body Fluid Polynuclear WBCs (%) [Pending], Body Fluid Mononuclear WBCs (%) [ Pending], Body Fluid Mesothelial Cells (%) [Pending] Height (Feet): 5 Height (Inches): 3.00 Weight (Pounds): 157 General Appearance: no apparent distress, alert Neurologic: alert, oriented x 3, responsive, depressed affect Audi Bonilla M.D. Sep 15, 2017 14:37
--- NOTE | 2017-09-15 14:53 | Immediate Post-Op Evaluation ---
Immediate Post-Op Evalulation Immediate Post-Op Evalulation Procedure: EGD PEG tube placement Date of Evaluation: Sep 15, 2017 Time of Evaluation: 14:51 IV Fluids: 600 Blood Products: none Estimated Blood Loss: 50 Urinary Output: 100 Blood Pressure Systolic: 131 Blood Pressure Diastolic: 69 Pulse Rate: 79 Respiratory Rate: 20 O2 Sat by Pulse Oximetry: 99 Temperature (Fahrenheit): 98.6 Pain Score (1-10): 2 Nausea: No Vomiting: No Complications none Patient Status: reacts, patent, extubated, none Hydration Status: adequate JOSÉ LUIS LARKIN M.D. Sep 15, 2017 14:53
--- NOTE | 2017-09-15 14:54 | Brief Operative Note ---
Immediate Post Operative Note Operative Note Pre-op Diagnosis: right foot gangrene; ischemic leg Procedure: right above knee amputation Post-op Diagnosis: same as pre-op plus Findings: consistent w/pre-op dx studies Surgeon: Belgica De Anesthesiologist: Samantha Lay Anesthesia: general Specimen: yes - amputated right leg; right knee fluid Complications: none Condition: stable Fluids: see anesth. record Estimated Blood Loss: minimal Drains: none Implant(s) used?: No ARNALDO DE Sep 15, 2017 14:54
[2017-09-15] MEDS ORDERED: Ketorolac 30mg Inj IV PRN (15:00)
[2017-09-15] MEDS ORDERED: Meperidine 50mg/ml Inj(FOR RIGORS ONLY) IV PRN (15:00)
--- NOTE | 2017-09-15 16:06 | Infectious Diseases Prog Note ---
Assessment/Plan Assessment/Plan ASSESSMENT AND PLAN: 1. sepsis, klebsiella uti, mrsa pna, leukocytosis and hx fevers, ? c.diff - negative, aspiration risk, s/p g-tube, dwight glabrata fungal uti, fungemia, ct without abscess, right leg/foot ischemia/pad/occlusive dx - cefepime, iv vanco, flagyl, micafungin - check labs, check chest x-ray - surgery note reviewed - no decubitus infection, no abscess on aspiration - s/p right aka - surveillance blood cultures negative - leukocytosis better 2. The patient has history of diabetes. 3. Hypertension. 4. Anemia, hypernatremia 5. Respiratory insufficiency. 6. Blood sugar and blood pressure control per primary. 7. Diabetic ketoacidosis. 8. History of anxiety. 9. Depression. 10. Dementia. 11. Chronic pain syndrome. 12. Aspiration risk. 13. Altered mental status. 14. Poor historian. 15. No known allergies. 16. Social history is negative. 17. Family history is noncontributory. 18. MAR was noted. 19. Case was discussed with RN. 20. Notes and records were noted. 21. Skin care protocol. 22. I have reviewed the wounds. I do not think this is her source of sepsis. Continue local wound care protocol. wc - likely colonizer. 23. Continue treatment per Dr. Winn. Subjective Constitutional: Denies: fever HEENT: Reports: congestion Respiratory: Denies: shortness of breath Gastrointestinal/Abdominal: Denies: nausea, vomiting, diarrhea Genitourinary: Reports: other - + rowe Neurologic: Denies: headache Psychiatric: Denies: depression Skin: Denies: rash Hematologic: Denies: bleeding Musculoskeletal: Reports: other - pain controlled Allergies: Coded Allergies: No Known Allergies (Unverified , 08/18/17) Objective Vital Signs Last 24 Hour Vital Signs Date Time Temp Pulse Resp B/P (MAP) Pulse Ox O2 Delivery O2 Flow Rate FiO2 09/15/17 15:30 98.9 83 15 126/82 96 Nasal Cannula 3.0 09/15/17 15:25 82 13 140/88 98 Nasal Cannula 3.0 09/15/17 15:14 98.9 09/15/17 15:10 81 13 137/76 100 Simple Mask 6.0 09/15/17 14:57 81 24 133/78 100 Simple Mask 6.0 09/15/17 14:53 79 20 99 09/15/17 14:47 78 14 131/69 100 Simple Mask 6.0 09/15/17 14:42 77 14 129/71 100 Simple Mask 6.0 09/15/17 14:40 98.8 78 14 116/70 100 Simple Mask 6.0 09/15/17 12:00 97.9 78 20 134/72 99 Nasal Cannula 2.0 09/15/17 09:13 94 Nasal Cannula 2.0 28 09/15/17 09:13 Nasal Cannula 2.0 28 09/15/17 08:28 78 142/65 09/15/17 08:28 142/65 09/15/17 08:00 97.5 78 20 142/65 93 Nasal Cannula 2.0 09/15/17 04:00 98.1 83 20 128/69 96 Nasal Cannula 2.0 09/15/17 00:00 97.6 83 18 139/82 95 09/14/17 21:30 Nasal Cannula 3.0 32 09/14/17 21:29 93 Nasal Cannula 2.0 28 09/14/17 20:00 97.9 75 20 134/73 95 Nasal Cannula 2.0 Height (Feet): 5 Height (Inches): 3.00 Weight (Pounds): 157 General Appearance: no acute distress HEENT: normocephalic, atraumatic, anicteric, mucous membranes moist Respiratory/Chest: crackles/rales, rhonchi - bilaterally Cardiovascular: normal rate, regular rhythm, no gallop/murmur, no JVD Abdomen: normal bowel sounds, soft, non tender, no organomegaly, non distended Genitourinary: other - + rowe - urine slt cloudy Extremities: other - right aka Skin: no rash 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 Gastrostomy in good position. Basilar reticular lung disease, nonspecific. Left basilar pneumonia versus atelectasis. Please correlate clinically. Atherosclerotic disease Rowe catheter in good position. Breathing motion artifact. Anasarca. Trace ascites 09/11- chest x-ray: Impression: Bilateral diffuse interstitial disease. Suspect mostly chronic, but there is possibly new or increased acute component in the retrocardiac region. Suspect small bilateral pleural effusions Arterial studies: right lower extremity occlusive disease noted, report noted Microbiology Date/Time Source Procedure Growth Status 09/11/17 14:45 Blood Blood Culture - Preliminary NO GROWTH AFTER 72 HOURS Resulted 09/07/17 22:00 Sputum Induced Gram Stain - Final Complete 09/07/17 22:00 Sputum Culture - Final Staphylococcus Aureus Usual Upper Respiratory Bertha Complete 09/13/17 06:30 Stool Clostridium difficile Toxin Assay - Final Complete 09/07/17 19:00 Indwelling Cath Urine Culture - Final NO GROWTH AFTER 48 HOURS Complete 08/19/17 07:00 Buttock Left Gram Stain - Final Complete 08/19/17 07:00 Wound Culture - Final Staphylococcus Sp Coag Neg Diphtheroids Complete Microbiology Date/Time Source Procedure Growth Status 09/13/17 06:30 Stool Clostridium difficile Toxin Assay - Final Complete Laboratory Tests Test 09/15/17 05:20 09/15/17 13:12 White Blood Count 22.9 K/UL (4.8-10.8) *H Red Blood Count 3.31 M/UL (4.20-5.40) L Hemoglobin 10.7 G/DL (12.0-16.0) L Hematocrit 32.1 % (37.0-47.0) L Mean Corpuscular Volume 97 FL (80-99) Mean Corpuscular Hemoglobin 32.2 PG (27.0-31.0) H Mean Corpuscular Hemoglobin Concent 33.2 G/DL (32.0-36.0) Red Cell Distribution Width 15.8 % (11.6-14.8) H Platelet Count 383 K/UL (150-450) Mean Platelet Volume 7.4 FL (6.5-10.1) Neutrophils (%) (Auto) % (45.0-75.0) Lymphocytes (%) (Auto) % (20.0-45.0) Monocytes (%) (Auto) % (1.0-10.0) Eosinophils (%) (Auto) % (0.0-3.0) Basophils (%) (Auto) % (0.0-2.0) Differential Total Cells Counted 100 Neutrophils % (Manual) 89 % (45-75) H Lymphocytes % (Manual) 5 % (20-45) L Monocytes % (Manual) 6 % (1-10) Eosinophils % (Manual) 0 % (0-3) Basophils % (Manual) 0 % (0-2) Band Neutrophils 0 % (0-8) Platelet Estimate Adequate Platelet Morphology Normal Hypochromasia 1+ Anisocytosis 1+ Prothrombin Time 14.7 SEC (9.30-11.50) H Prothromb Time International Ratio 1.4 (0.9-1.1) H Activated Partial Thromboplast Time 53 SEC (23-33) H Sodium Level 134 MMOL/L (136-145) L Potassium Level 3.6 MMOL/L (3.5-5.1) Chloride Level 102 MMOL/L (98-107) Carbon Dioxide Level 26 MMOL/L (21-32) Anion Gap 7 mmol/L (5-15) Blood Urea Nitrogen 11 mg/dL (7-18) Creatinine 0.8 MG/DL (0.55-1.30) Estimat Glomerular Filtration Rate > 60 mL/min (>60) Glucose Level 212 MG/DL (74-106) H Calcium Level 7.5 MG/DL (8.5-10.1) L Body Fluid Source Synovial right side Body Fluid Volume 3 mL Body Fluid Appearance Cloudy Body Fluid RBC 19484 /CUMM Body Fluid Total Nucleated Cells 22 /CUMM Body Fluid Polynuclear WBCs (%) 91 % Body Fluid Mononuclear WBCs (%) 9 % Body Fluid Mesothelial Cells (%) 0 % Current Medications Medications (Trade) Dose Ordered Sig/Adonay Route PRN Reason Start Time Stop Time Status Last Admin Dose Admin Acetaminophen (Tylenol) 650 mg Q6H PRN ORAL Mild Pain/Temp > 100.5 09/09/17 19:00 09/18/17 18:59 09/10/17 20:49 Amlodipine Besylate (Norvasc) 10 mg DAILY NG 09/11/17 09:00 10/11/17 08:59 09/15/17 08:28 Ascorbic Acid (Vitamin C) 500 mg DAILY NG 09/10/17 09:00 09/22/17 08:59 09/15/17 08:24 Cefepime HCl 2 gm/ Sodium Chloride 110 ml @ 220 mls/hr Q24H IVPB 09/11/17 16:00 09/18/17 15:59 09/14/17 18:09 Chlorhexidine Gluconate ([place]-Hex 2%) 1 applic DAILY@2000 TOPIC 09/14/17 20:00 10/14/17 19:59 09/14/17 21:07 Citalopram Hydrobromide (celeXA) 20 mg DAILY GT 09/10/17 09:00 09/18/17 08:59 09/15/17 08:22 Clonidine HCl (Catapres) 0.1 mg Q6H PRN NG SBP > 160mmHg 09/09/17 13:40 09/22/17 13:39 Dextrose (Dextrose 50%) STAT PRN IV Hypoglycemia 09/12/17 06:30 10/12/17 06:29 Dextrose/Sodium Chloride 1,000 ml @ 50 mls/hr Q20H IV 09/10/17 14:30 10/10/17 14:29 09/14/17 18:53 Diphenhydramine HCl (Benadryl) 25 mg Q15M PRN IVP Itching 09/15/17 13:45 09/15/17 18:00 Diphenhydramine HCl (Benadryl) 25 mg Q15M PRN IVP Itching 09/15/17 15:00 UNV Enoxaparin Sodium (Lovenox) 70 mg Q12HR SUBQ 09/14/17 21:00 10/14/17 20:59 Hydromorphone HCl (Dilaudid) 0.5 mg Q5M PRN IVP Severe Pain (Pain Scale 7-10) 09/15/17 13:45 09/15/17 18:00 09/15/17 14:44 Hydromorphone HCl (Dilaudid) 0.5 mg Q5M PRN IVP Severe Pain (Pain Scale 7-10) 09/15/17 15:00 UNV Insulin Aspart (NovoLOG) EVERY 6 HOURS SUBQ 09/12/17 06:30 10/12/17 06:29 09/14/17 18:35 Insulin Detemir (Levemir) 8 units QHS SUBQ 09/12/17 21:00 10/11/17 08:59 09/13/17 21:05 Ketorolac Tromethamine (Toradol 30mg) 30 mg Q1H PRN IV Severe Breakthru Pain (>7) 09/15/17 15:00 UNV Lactated Ringer's 1,000 ml @ 10 mls/hr Q24H IVLG 09/15/17 13:33 09/15/17 18:00 Lactated Ringer's 1,000 ml @ 10 mls/hr Q24H IVLG 09/15/17 14:47 09/15/17 16:46 UNV Lactulose (Cephulac) 30 gm THREE TIMES A DAY GT 09/10/17 10:15 10/10/17 10:14 09/11/17 08:26 Lansoprazole (Prevacid) 30 mg ACBREAKFAST NG 09/10/17 06:30 10/10/17 06:29 09/15/17 06:21 Levothyroxine Sodium (Synthroid) 100 mcg ACBREAKFAST NG 09/10/17 06:30 10/10/17 06:29 09/15/17 06:21 Losartan Potassium (Cozaar) 50 mg DAILY NG 09/10/17 09:00 09/22/17 08:59 09/15/17 08:28 Meperidine HCl (Demerol) 25 mg Q15M PRN IV chills 09/15/17 15:00 UNV Metoclopramide HCl (Reglan) 5 mg Q8HR IVP 09/14/17 22:00 10/10/17 08:44 09/15/17 06:21 Metronidazole 100 ml @ 100 mls/hr Q8H IVPB 09/10/17 18:00 09/17/17 17:59 09/15/17 10:43 Micafungin Sodium 100 mg/Sodium Chloride 100 ml @ 100 mls/hr Q24H IVPB 09/10/17 15:00 09/17/17 14:59 09/14/17 16:58 Midazolam HCl (Versed 2mg/2ml vial) 1 mg Q15M PRN IVP For Anxiety 09/15/17 13:45 09/15/17 18:00 Midazolam HCl (Versed 2mg/2ml vial) 1 mg Q15M PRN IVP For Anxiety 09/15/17 15:00 UNV Multivitamins (Multivitamins) 1 tab DAILY ORAL 09/10/17 09:00 09/18/17 08:59 09/15/17 08:24 Ondansetron HCl (Zofran) 4 mg Q1H PRN IVP Nausea & Vomiting 09/15/17 13:45 09/15/17 18:00 Ondansetron HCl (Zofran) 4 mg Q1H PRN IVP Nausea & Vomiting 09/15/17 15:00 UNV Ondansetron HCl (Zofran) 4 mg Q6H PRN NG Nausea & Vomiting 09/09/17 15:30 09/18/17 07:59 09/10/17 20:49 Oxycodone/ Acetaminophen (Percocet 5-325) 1 tab Q4H PRN ORAL Moderate to Severe Pain (4-10) 09/11/17 17:00 09/18/17 16:59 09/15/17 06:34 Quetiapine Fumarate (SEROquel) 12.5 mg Q12H PRN NG Agitation 09/14/17 15:00 09/29/17 13:44 Sodium Chloride 1,000 ml @ 75 mls/hr [id number] IV 09/15/17 14:45 10/15/17 14:44 UNV Vancomycin HCl (Vanco rx to dose) 1 ea DAILY PRN MISC Per rx protocol 09/10/17 09:00 09/27/17 16:14 Vancomycin/Sodium Chloride 250 ml @ 166.667 mls/hr Q24H IVPB 09/13/17 14:00 09/17/17 13:59 09/14/17 14:49 YASIR RUEDA Sep 15, 2017 16:06
[2017-09-15] MEDS: D5 1/2NS 1,000 ML IV SCH (16:55)
[2017-09-15] MEDS: Cefepime HCl 2 GM in NS 110 ML IVPB SCH (17:36)
--- NOTE | 2017-09-15 18:04 | 48 Hour Post Anesthesia Eval ---
Post Anesthesia Evaluation Procedure: EGD PEG tube placement Date of Evaluation: Sep 15, 2017 Time of Evaluation: 18:03 Blood Pressure Systolic: 138 0: 72 Pulse Rate: 84 Respiratory Rate: 16 Temperature (Fahrenheit): 97 O2 Sat by Pulse Oximetry: 100 Airway: patent Nausea: No Vomiting: No Pain Intensity: 1 Hydration Status: adequate Cardiopulmonary Status: Stable Mental Status/LOC: patient returned to baseline Follow-up Care/Observations: 0 Post-Anesthesia Complications: 0 Follow-up care needed: N/A Aneesh Cruz MD Sep 15, 2017 18:04
[2017-09-15] MEDS: Dyna-Hex 2% Top Sol 2oz TOPIC SCH (20:00)
[2017-09-15] MEDS: Levemir Flexpen SUBQ SCH (21:12)
[2017-09-16] VITALS: BP 128/79
[2017-09-16 04:00] VITALS: BP 110/68
[2017-09-16] MEDS: Metoclopramide 10mg/2ml Inj IVP SCH ×3 (05:21→22:23)
[2017-09-16] MEDS: NovoLOG Insulin Flexpen SUBQ SCH ×3 (05:25→17:55)
[2017-09-16] MEDS: oxyCODONE HCL/Acetaminophen 5/325mg ORAL PRN (06:44)
[2017-09-16 08:00] VITALS: BP 125/112
[2017-09-16 08:19] LABS: HEMATOCRIT 30.1 % (37.0-47.0); HEMOGLOBIN 10.4 G/DL (12.0-16.0); MEAN CORPUSCULAR VOLUME 97 FL (80-99); PLATELET COUNT 371 K/UL (150-450); RED BLOOD COUNT 3.11 M/UL (4.20-5.40); RED CELL DISTRIBUTION WIDTH 16.6 % (11.6-14.8)
[2017-09-16 08:23] LABS: WHITE BLOOD COUNT 24.7 K/UL (4.8-10.8)
[2017-09-16] MEDS: Citalopram Hydrobromide 10mg Tab GT SCH (08:59)
[2017-09-16] MEDS: Ascorbic Acid 500mg tab NG SCH (08:59)
[2017-09-16] MEDS: Losartan 50mg tab NG SCH (08:59)
[2017-09-16] MEDS: Lactulose 20gm/30ml UDC GT SCH ×3 (08:59→17:12)
[2017-09-16] MEDS: Enoxaparin Sodium 300mg/3ml vial SUBQ SCH (09:00)
[2017-09-16 09:14] LABS: ANION GAP 20 mmol/L (5-15); BLOOD UREA NITROGEN 16 mg/dL (7-18); CALCIUM 9.4 MG/DL (8.5-10.1); CARBON DIOXIDE 19 MMOL/L (21-32); CHLORIDE 101 MMOL/L (98-107); CREATININE 1.7 MG/DL (0.55-1.30); POTASSIUM 3.6 MMOL/L (3.5-5.1); SODIUM 140 MMOL/L (136-145)
--- NOTE | 2017-09-16 11:49 | Diagnostic Imaging Report ---
Indication: Shortness of breath Technique: One view of the chest Comparison: 09/14/2017 Findings: Left arm PICC remains. Diffuse bilateral interstitial and alveolar parenchymal disease persists, unchanged. Moderate to large left-sided pleural effusion persists, unchanged. Impression: Unchanged, over 2 days, findings as above.
[2017-09-16] MEDS: D5 1/2NS 1,000 ML IV SCH ×2 (11:50→17:12)
[2017-09-16 12:00] VITALS: BP 132/84
--- NOTE | 2017-09-16 13:46 | Pulmonology Progress Note ---
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 WBC better DM rx per Dr Andrade swallow eval labs reviewed disc w RN,and family at the bedside Subjective ROS Limited/Unobtainable: Yes Allergies: Coded Allergies: No Known Allergies (Unverified , 08/18/17) Subjective awake this am complains of leg pain no distress tolerating feed no cp nv or bleeding nonambulatory no fever noted positive uop family at the bedside Objective Last 24 Hour Vital Signs Date Time Temp Pulse Resp B/P (MAP) Pulse Ox O2 Delivery O2 Flow Rate FiO2 09/16/17 12:00 97.7 76 19 132/84 97 Nasal Cannula 3.5 09/16/17 08:59 71 125/112 09/16/17 08:59 125/112 09/16/17 08:26 Nasal Cannula 3.0 32 09/16/17 08:25 100 Nasal Cannula 3.0 32 09/16/17 08:00 97.3 71 18 125/112 98 Nasal Cannula 3.5 09/16/17 07:43 97.5 09/16/17 04:00 97.5 81 21 110/68 98 Nasal Cannula 09/16/17 00:00 97.7 80 20 128/79 98 Nasal Cannula 2.0 09/15/17 22:49 97.5 09/15/17 20:00 97.5 77 19 122/85 97 Nasal Cannula 2.0 09/15/17 19:20 Nasal Cannula 3.0 32 09/15/17 19:20 100 Nasal Cannula 3.0 32 09/15/17 18:04 84 16 100 09/15/17 16:00 97.0 84 19 138/72 100 Nasal Cannula 3.0 09/15/17 15:30 98.9 83 15 126/82 96 Nasal Cannula 3.0 09/15/17 15:25 82 13 140/88 98 Nasal Cannula 3.0 09/15/17 15:14 98.9 09/15/17 15:10 81 13 137/76 100 Simple Mask 6.0 09/15/17 14:57 81 24 133/78 100 Simple Mask 6.0 09/15/17 14:53 79 20 99 09/15/17 14:47 78 14 131/69 100 Simple Mask 6.0 09/15/17 14:42 77 14 129/71 100 Simple Mask 6.0 09/15/17 14:40 98.8 78 14 116/70 100 Simple Mask 6.0 Intake and Output 09/16/17 09/17/17 19:00 07:00 Intake Total 175 ml Balance 175 ml IV Total 175 ml General Appearance: cachetic HEENT: atraumatic, anicteric Respiratory/Chest: lungs clear, normal breath sounds Cardiovascular: normal rate, regular rhythm Abdomen: soft, non tender, no organomegaly Extremities: other - bka on the right Neurologic/Psychiatric: disoriented Lymphatic: no neck adenopathy, no groin adenopathy Microbiology Date/Time Source Procedure Growth Status 09/15/17 13:12 Synovial Fluid Gram Stain - Final Resulted 09/15/17 13:12 Synovial Fluid Body Fluid Culture - Preliminary NO GROWTH Resulted Laboratory Tests 09/16/17 06:00: White Blood Count 24.7*H, Red Blood Count 3.11L, Hemoglobin 10.4L, Hematocrit 30.1L, Mean Corpuscular Volume 97, Mean Corpuscular Hemoglobin 33.6H, Mean Corpuscular Hemoglobin Concent 34.7, Red Cell Distribution Width 16.6H, Platelet Count 371, Mean Platelet Volume 7.5, Neutrophils (%) (Auto) , Lymphocytes (%) (Auto) , Monocytes (%) (Auto) , Eosinophils (%) (Auto) , Basophils (%) (Auto) , Differential Total Cells Counted 100, Neutrophils % ( Manual) 90H, Lymphocytes % (Manual) 5L, Monocytes % (Manual) 5, Eosinophils % ( Manual) 0, Basophils % (Manual) 0, Band Neutrophils 0, Platelet Estimate Adequate, Platelet Morphology Normal, Hypochromasia Occasional, Anisocytosis 1+ , Macrocytosis 1+, Sodium Level 140, Potassium Level 3.6, Chloride Level 101, Carbon Dioxide Level 19L, Anion Gap 20H, Blood Urea Nitrogen 16, Creatinine 1.7# H, Estimat Glomerular Filtration Rate 36.2, Glucose Level 88#, Calcium Level 9.4 # Current Medications Medications (Trade) Dose Ordered Sig/Adonay Route PRN Reason Start Time Stop Time Status Last Admin Dose Admin Acetaminophen (Tylenol) 650 mg Q6H PRN ORAL Mild Pain/Temp > 100.5 09/09/17 19:00 09/18/17 18:59 09/10/17 20:49 Acetaminophen/ Hydrocodone Bitart ([place] 10) 1 ea Q4H PRN ORAL Moderate Pain (Pain Scale 4-6) 09/15/17 19:00 09/22/17 18:59 Amlodipine Besylate (Norvasc) 10 mg DAILY NG 09/11/17 09:00 10/11/17 08:59 09/16/17 08:59 Ascorbic Acid (Vitamin C) 500 mg DAILY NG 09/10/17 09:00 09/22/17 08:59 09/16/17 08:59 Cefepime HCl 2 gm/ Sodium Chloride 110 ml @ 220 mls/hr Q24H IVPB 09/15/17 16:00 09/22/17 15:59 09/15/17 17:36 Chlorhexidine Gluconate ([place]-Hex 2%) 1 applic DAILY@2000 TOPIC 09/14/17 20:00 10/14/17 19:59 09/15/17 20:00 Citalopram Hydrobromide (celeXA) 20 mg DAILY GT 09/10/17 09:00 09/18/17 08:59 09/16/17 08:59 Clonidine HCl (Catapres) 0.1 mg Q6H PRN NG SBP > 160mmHg 09/09/17 13:40 09/22/17 13:39 Dextrose (Dextrose 50%) STAT PRN IV Hypoglycemia 09/12/17 06:30 10/12/17 06:29 Dextrose/Sodium Chloride 1,000 ml @ 50 mls/hr Q20H IV 09/10/17 14:30 10/10/17 14:29 09/15/17 16:55 Enoxaparin Sodium (Lovenox) 70 mg Q12HR SUBQ 09/14/17 21:00 10/14/17 20:59 Insulin Aspart (NovoLOG) EVERY 6 HOURS SUBQ 09/12/17 06:30 10/12/17 06:29 09/16/17 05:25 Insulin Detemir (Levemir) 8 units QHS SUBQ 09/12/17 21:00 10/11/17 08:59 09/15/17 21:12 Lactulose (Cephulac) 30 gm THREE TIMES A DAY GT 09/10/17 10:15 10/10/17 10:14 09/11/17 08:26 Lansoprazole (Prevacid) 30 mg ACBREAKFAST NG 09/10/17 06:30 10/10/17 06:29 09/16/17 05:39 Levothyroxine Sodium (Synthroid) 100 mcg ACBREAKFAST NG 09/10/17 06:30 10/10/17 06:29 09/16/17 05:40 Losartan Potassium (Cozaar) 50 mg DAILY NG 09/10/17 09:00 09/22/17 08:59 09/16/17 08:59 Metoclopramide HCl (Reglan) 5 mg Q8HR IVP 09/14/17 22:00 10/10/17 08:44 09/16/17 05:21 Metronidazole 100 ml @ 100 mls/hr Q8H IVPB 09/15/17 18:00 09/22/17 17:59 09/16/17 09:00 Micafungin Sodium 100 mg/Sodium Chloride 100 ml @ 100 mls/hr Q24H IVPB 09/15/17 15:00 09/22/17 14:59 Multivitamins (Multivitamins) 1 tab DAILY ORAL 09/10/17 09:00 09/18/17 08:59 09/16/17 08:59 Ondansetron HCl (Zofran) 4 mg Q6H PRN NG Nausea & Vomiting 09/09/17 15:30 09/18/17 07:59 09/10/17 20:49 Oxycodone/ Acetaminophen (Percocet 5-325) 1 tab Q4H PRN ORAL Severe Pain (Pain Scale 7-10) 09/16/17 06:30 09/18/17 16:59 09/16/17 06:44 Quetiapine Fumarate (SEROquel) 12.5 mg Q12H PRN NG Agitation 09/14/17 15:00 09/29/17 13:44 Sodium Chloride 1,000 ml @ 75 mls/hr [id number] IV 09/15/17 17:00 10/15/17 16:59 09/16/17 03:40 Vancomycin HCl (Vanco rx to dose) 1 ea DAILY PRN MISC Per rx protocol 09/15/17 16:15 10/15/17 16:14 Vancomycin/Sodium Chloride 250 ml @ 166.667 mls/hr Q24H IVPB 09/16/17 14:00 09/20/17 13:59 09/16/17 13:06 JERO CALI DO Sep 16, 2017 13:46
[2017-09-16] MEDS ORDERED: Vancomycin 750mg/NS 250ml 250 ML IVPB SCH (14:00)
[2017-09-16 16:00] VITALS: BP 97/63
[2017-09-16] MEDS: Cefepime HCl 2 GM in NS 110 ML IVPB SCH (16:56)
[2017-09-16] MEDS: Norco 10mg/325mg tab ORAL PRN ×2 (16:57→21:20)
[2017-09-16 20:00] VITALS: BP 142/71
[2017-09-16] MEDS: Dyna-Hex 2% Top Sol 2oz TOPIC SCH (21:10)
[2017-09-16] MEDS: Levemir Flexpen SUBQ SCH (21:10)
[2017-09-17] VITALS: BP 142/83
[2017-09-17] MEDS: NovoLOG Insulin Flexpen SUBQ SCH ×5 (00:57→23:38)
[2017-09-17 04:00] VITALS: BP 158/77
[2017-09-17] MEDS: Metoclopramide 10mg/2ml Inj IVP SCH (05:45)
[2017-09-17] MEDS: oxyCODONE HCL/Acetaminophen 5/325mg ORAL PRN ×3 (05:45→18:52)
[2017-09-17 08:27] VITALS: BP 139/50
[2017-09-17] MEDS: Citalopram Hydrobromide 10mg Tab GT SCH (08:34)
[2017-09-17] MEDS: Losartan 50mg tab NG SCH (08:34)
[2017-09-17] MEDS: Lactulose 20gm/30ml UDC GT SCH ×3 (08:34→17:54)
[2017-09-17] MEDS: Ascorbic Acid 500mg tab NG SCH (08:34)
[2017-09-17] MEDS: Enoxaparin Sodium 300mg/3ml vial SUBQ SCH (08:37)
[2017-09-17] MEDS ORDERED: D5 1/2NS 1000ml IV ONE (09:35)
--- NOTE | 2017-09-17 11:05 | Infectious Diseases Prog Note ---
Assessment/Plan Assessment/Plan ASSESSMENT AND PLAN: 1. sepsis, klebsiella uti, mrsa pna, leukocytosis and hx fevers, ? c.diff - negative, aspiration risk, s/p g-tube, dwight glabrata fungal uti, fungemia, ct without abscess, right leg/foot ischemia/pad/occlusive dx - cefepime, iv vanco, flagyl, micafungin - check labs, check chest x-ray - surgery note reviewed - no decubitus infection, no abscess on aspiration - s/p right aka - surveillance blood cultures negative - leukocytosis persist, no fevers - aspiration of right knee culture negative, only 22 wbx 2. The patient has history of diabetes. 3. Hypertension. 4. Anemia, hypernatremia 5. Respiratory insufficiency. 6. Blood sugar and blood pressure control per primary. 7. Diabetic ketoacidosis. 8. History of anxiety. 9. Depression. 10. Dementia. 11. Chronic pain syndrome. 12. Aspiration risk. 13. Altered mental status. 14. Poor historian. 15. No known allergies. 16. Social history is negative. 17. Family history is noncontributory. 18. MAR was noted. 19. Case was discussed with RN. 20. Notes and records were noted. 21. Skin care protocol. 22. I have reviewed the wounds. I do not think this is her source of sepsis. Continue local wound care protocol. wc - likely colonizer. 23. Continue treatment per Dr. Winn. Subjective Constitutional: Denies: fever HEENT: Denies: congestion Respiratory: Denies: shortness of breath Cardiovascular: Denies: chest pain Gastrointestinal/Abdominal: Denies: nausea, vomiting, diarrhea Genitourinary: Reports: other - + rowe Neurologic: Denies: headache Psychiatric: Denies: depression Skin: Denies: rash Hematologic: Denies: bleeding Musculoskeletal: Denies: pain Allergies: Coded Allergies: No Known Allergies (Unverified , 08/18/17) Objective Vital Signs Last 24 Hour Vital Signs Date Time Temp Pulse Resp B/P (MAP) Pulse Ox O2 Delivery O2 Flow Rate FiO2 09/17/17 08:34 76 139/50 09/17/17 08:34 139/50 09/17/17 08:27 97.3 76 20 139/50 98 Nasal Cannula 2.0 09/17/17 06:44 98.2 09/17/17 04:00 98.2 83 20 158/77 94 Nasal Cannula 3.0 09/17/17 00:00 98.1 81 18 142/83 96 Nasal Cannula 3.0 09/16/17 22:19 97.7 09/16/17 20:06 Nasal Cannula 3.0 32 09/16/17 20:06 100 Nasal Cannula 3.0 32 09/16/17 20:00 97.7 82 20 142/71 98 Nasal Cannula 3.0 09/16/17 16:00 98.1 88 17 97/63 96 Nasal Cannula 2.0 09/16/17 12:00 97.7 76 19 132/84 97 Nasal Cannula 3.5 Height (Feet): 5 Height (Inches): 3.00 Weight (Pounds): 152 General Appearance: no acute distress HEENT: normocephalic, atraumatic, anicteric, mucous membranes moist, EOMI, pharynx normal, supple, no JVD Respiratory/Chest: lungs clear, normal breath sounds, no respiratory distress, no accessory muscle use Cardiovascular: normal rate, regular rhythm, no gallop/murmur, no JVD Abdomen: normal bowel sounds, soft, non tender, no organomegaly, non distended Genitourinary: other - + rowe - urine sltl cloudy Extremities: no cyanosis Skin: no rash Neurologic/Psychiatric: 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 Gastrostomy in good position. Basilar reticular lung disease, nonspecific. Left basilar pneumonia versus atelectasis. Please correlate clinically. Atherosclerotic disease Rowe catheter in good position. Breathing motion artifact. Anasarca. Trace ascites 09/11- chest x-ray: Impression: Bilateral diffuse interstitial disease. Suspect mostly chronic, but there is possibly new or increased acute component in the retrocardiac region. Suspect small bilateral pleural effusions Arterial studies: right lower extremity occlusive disease noted, report noted 09/16 - chest x-ray - no change Microbiology Date/Time Source Procedure Growth Status 09/11/17 14:45 Blood Blood Culture - Final NO GROWTH AFTER 5 DAYS Complete 09/15/17 13:12 Synovial Fluid Gram Stain - Final Resulted 09/15/17 13:12 Synovial Fluid Body Fluid Culture - Preliminary NO GROWTH AFTER 48 HOURS Resulted 09/07/17 22:00 Sputum Induced Gram Stain - Final Complete 09/07/17 22:00 Sputum Culture - Final Staphylococcus Aureus Usual Upper Respiratory Bertha Complete 09/13/17 06:30 Stool Clostridium difficile Toxin Assay - Final Complete 09/07/17 19:00 Indwelling Cath Urine Culture - Final NO GROWTH AFTER 48 HOURS Complete 08/19/17 07:00 Buttock Left Gram Stain - Final Complete 08/19/17 07:00 Wound Culture - Final Staphylococcus Sp Coag Neg Diphtheroids Complete Microbiology Date/Time Source Procedure Growth Status 09/15/17 13:12 Synovial Fluid Gram Stain - Final Resulted 09/15/17 13:12 Synovial Fluid Body Fluid Culture - Preliminary NO GROWTH AFTER 48 HOURS Resulted Labs Test 09/15/17 05:20 09/15/17 13:12 09/16/17 06:00 White Blood Count 22.9 K/UL (4.8-10.8) 24.7 K/UL (4.8-10.8) Red Blood Count 3.31 M/UL (4.20-5.40) 3.11 M/UL (4.20-5.40) Hemoglobin 10.7 G/DL (12.0-16.0) 10.4 G/DL (12.0-16.0) Hematocrit 32.1 % (37.0-47.0) 30.1 % (37.0-47.0) Mean Corpuscular Volume 97 FL (80-99) 97 FL (80-99) Mean Corpuscular Hemoglobin 32.2 PG (27.0-31.0) 33.6 PG (27.0-31.0) Mean Corpuscular Hemoglobin Concent 33.2 G/DL (32.0-36.0) 34.7 G/DL (32.0-36.0) Red Cell Distribution Width 15.8 % (11.6-14.8) 16.6 % (11.6-14.8) Platelet Count 383 K/UL (150-450) 371 K/UL (150-450) Mean Platelet Volume 7.4 FL (6.5-10.1) 7.5 FL (6.5-10.1) Neutrophils (%) (Auto) % (45.0-75.0) % (45.0-75.0) Lymphocytes (%) (Auto) % (20.0-45.0) % (20.0-45.0) Monocytes (%) (Auto) % (1.0-10.0) % (1.0-10.0) Eosinophils (%) (Auto) % (0.0-3.0) % (0.0-3.0) Basophils (%) (Auto) % (0.0-2.0) % (0.0-2.0) Differential Total Cells Counted 100 100 Neutrophils % (Manual) 89 % (45-75) 90 % (45-75) Lymphocytes % (Manual) 5 % (20-45) 5 % (20-45) Monocytes % (Manual) 6 % (1-10) 5 % (1-10) Eosinophils % (Manual) 0 % (0-3) 0 % (0-3) Basophils % (Manual) 0 % (0-2) 0 % (0-2) Band Neutrophils 0 % (0-8) 0 % (0-8) Platelet Estimate Adequate Adequate Platelet Morphology Normal Normal Hypochromasia 1+ Occasional Anisocytosis 1+ 1+ Prothrombin Time 14.7 SEC (9.30-11.50) Prothromb Time International Ratio 1.4 (0.9-1.1) Activated Partial Thromboplast Time 53 SEC (23-33) Sodium Level 134 MMOL/L (136-145) 140 MMOL/L (136-145) Potassium Level 3.6 MMOL/L (3.5-5.1) 3.6 MMOL/L (3.5-5.1) Chloride Level 102 MMOL/L (98-107) 101 MMOL/L (98-107) Carbon Dioxide Level 26 MMOL/L (21-32) 19 MMOL/L (21-32) Anion Gap 7 mmol/L (5-15) 20 mmol/L (5-15) Blood Urea Nitrogen 11 mg/dL (7-18) 16 mg/dL (7-18) Creatinine 0.8 MG/DL (0.55-1.30) 1.7 MG/DL (0.55-1.30) Estimat Glomerular Filtration Rate > 60 mL/min (>60) 36.2 mL/min (>60) Glucose Level 212 MG/DL (74-106) 88 MG/DL (74-106) Calcium Level 7.5 MG/DL (8.5-10.1) 9.4 MG/DL (8.5-10.1) Body Fluid Source Synovial right side Body Fluid Volume 3 mL Body Fluid Appearance Cloudy Body Fluid RBC 72138 /CUMM Body Fluid Total Nucleated Cells 22 /CUMM Body Fluid Polynuclear WBCs (%) 91 % Body Fluid Mononuclear WBCs (%) 9 % Body Fluid Mesothelial Cells (%) 0 % Macrocytosis 1+ Current Medications Medications (Trade) Dose Ordered Sig/Adonay Route PRN Reason Start Time Stop Time Status Last Admin Dose Admin Acetaminophen (Tylenol) 650 mg Q6H PRN ORAL Mild Pain/Temp > 100.5 09/09/17 19:00 09/18/17 18:59 09/10/17 20:49 Acetaminophen/ Hydrocodone Bitart ([place] 10/325) 1 ea Q4H PRN ORAL Moderate Pain (Pain Scale 4-6) 09/15/17 19:00 09/22/17 18:59 09/16/17 21:20 Amlodipine Besylate (Norvasc) 10 mg DAILY NG 09/11/17 09:00 10/11/17 08:59 09/17/17 08:34 Ascorbic Acid (Vitamin C) 500 mg DAILY NG 09/10/17 09:00 09/22/17 08:59 09/17/17 08:34 Cefepime HCl 2 gm/ Sodium Chloride 110 ml @ 220 mls/hr Q24H IVPB 09/15/17 16:00 09/22/17 15:59 09/16/17 16:56 Chlorhexidine Gluconate ([place]-Hex 2%) 1 applic DAILY@2000 TOPIC 09/14/17 20:00 10/14/17 19:59 09/16/17 21:10 Citalopram Hydrobromide (celeXA) 20 mg DAILY GT 09/10/17 09:00 09/18/17 08:59 09/17/17 08:34 Clonidine HCl (Catapres) 0.1 mg Q6H PRN NG SBP > 160mmHg 09/09/17 13:40 09/22/17 13:39 Dextrose (Dextrose 50%) STAT PRN IV Hypoglycemia 09/12/17 06:30 10/12/17 06:29 Dextrose/Sodium Chloride 1,000 ml @ 50 mls/hr Q20H IV 09/10/17 14:30 10/10/17 14:29 09/16/17 17:12 Enoxaparin Sodium (Lovenox) 70 mg Q24H SUBQ 09/17/17 09:00 10/17/17 08:59 09/17/17 08:37 Insulin Aspart (NovoLOG) EVERY 6 HOURS SUBQ 09/12/17 06:30 10/12/17 06:29 09/17/17 00:57 Insulin Detemir (Levemir) 8 units QHS SUBQ 09/12/17 21:00 10/11/17 08:59 09/16/17 21:10 Lactulose (Cephulac) 30 gm THREE TIMES A DAY GT 09/10/17 10:15 10/10/17 10:14 09/17/17 08:34 Lansoprazole (Prevacid) 30 mg ACBREAKFAST NG 09/10/17 06:30 10/10/17 06:29 09/17/17 06:24 Levothyroxine Sodium (Synthroid) 100 mcg ACBREAKFAST NG 09/10/17 06:30 10/10/17 06:29 09/17/17 06:24 Losartan Potassium (Cozaar) 50 mg DAILY NG 09/10/17 09:00 09/22/17 08:59 09/17/17 08:34 Metoclopramide HCl (Reglan) 5 mg Q8HR IVP 09/14/17 22:00 10/10/17 08:44 09/17/17 05:45 Metronidazole 100 ml @ 100 mls/hr Q8H IVPB 09/15/17 18:00 09/22/17 17:59 09/17/17 10:12 Micafungin Sodium 100 mg/Sodium Chloride 100 ml @ 100 mls/hr Q24H IVPB 09/15/17 15:00 09/22/17 14:59 09/16/17 15:26 Multivitamins (Multivitamins) 1 tab DAILY ORAL 09/10/17 09:00 09/18/17 08:59 09/17/17 08:34 Ondansetron HCl (Zofran) 4 mg Q6H PRN NG Nausea & Vomiting 09/09/17 15:30 09/18/17 07:59 09/10/17 20:49 Oxycodone/ Acetaminophen (Percocet 5-325) 1 tab Q4H PRN ORAL Severe Pain (Pain Scale 7-10) 09/16/17 06:30 09/18/17 16:59 09/17/17 05:45 Quetiapine Fumarate (SEROquel) 12.5 mg Q12H PRN NG Agitation 09/14/17 15:00 09/29/17 13:44 Vancomycin HCl (Vanco rx to dose) 1 ea DAILY PRN MISC Per rx protocol 09/15/17 16:15 10/15/17 16:14 YASIR UREDA Sep 17, 2017 11:05
[2017-09-17 11:41] VITALS: BP 135/52
--- NOTE | 2017-09-17 12:50 | Pulmonology Progress Note ---
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 no labs today, will order for am wound care and pain control DM rx per Dr Lupe gamble eval labs reviewed disc w RN dc planning Subjective ROS Limited/Unobtainable: Yes Allergies: Coded Allergies: No Known Allergies (Unverified , 08/18/17) Subjective sleeping this am still with pain wound .cdi no distress tolerating feed no cp nv or bleeding nonambulatory no fever noted positive uop Objective Last 24 Hour Vital Signs Date Time Temp Pulse Resp B/P (MAP) Pulse Ox O2 Delivery O2 Flow Rate FiO2 09/17/17 11:41 98.0 75 20 135/52 98 Nasal Cannula 98.0 09/17/17 08:34 76 139/50 09/17/17 08:34 139/50 09/17/17 08:27 97.3 76 20 139/50 98 Nasal Cannula 2.0 09/17/17 06:44 98.2 09/17/17 04:00 98.2 83 20 158/77 94 Nasal Cannula 3.0 09/17/17 00:00 98.1 81 18 142/83 96 Nasal Cannula 3.0 09/16/17 22:19 97.7 09/16/17 20:06 Nasal Cannula 3.0 32 09/16/17 20:06 100 Nasal Cannula 3.0 32 09/16/17 20:00 97.7 82 20 142/71 98 Nasal Cannula 3.0 09/16/17 16:00 98.1 88 17 97/63 96 Nasal Cannula 2.0 General Appearance: cachetic Respiratory/Chest: lungs clear, normal breath sounds Cardiovascular: normal rate, regularly irregular Abdomen: soft, non tender, no organomegaly, non distended Extremities: other - bka right Skin: no rash, no lesions Neurologic/Psychiatric: disoriented Microbiology Date/Time Source Procedure Growth Status 09/15/17 13:12 Synovial Fluid Gram Stain - Final Resulted 09/15/17 13:12 Synovial Fluid Body Fluid Culture - Preliminary NO GROWTH AFTER 48 HOURS Resulted Current Medications Medications (Trade) Dose Ordered Sig/Adonay Route PRN Reason Start Time Stop Time Status Last Admin Dose Admin Acetaminophen (Tylenol) 650 mg Q6H PRN ORAL Mild Pain/Temp > 100.5 09/09/17 19:00 09/18/17 18:59 09/10/17 20:49 Acetaminophen/ Hydrocodone Bitart ([place] 10) 1 ea Q4H PRN ORAL Moderate Pain (Pain Scale 4-6) 09/15/17 19:00 09/22/17 18:59 09/16/17 21:20 Amlodipine Besylate (Norvasc) 10 mg DAILY NG 09/11/17 09:00 10/11/17 08:59 09/17/17 08:34 Ascorbic Acid (Vitamin C) 500 mg DAILY NG 09/10/17 09:00 09/22/17 08:59 09/17/17 08:34 Cefepime HCl 2 gm/ Sodium Chloride 110 ml @ 220 mls/hr Q24H IVPB 09/15/17 16:00 09/22/17 15:59 09/16/17 16:56 Chlorhexidine Gluconate ([place]-Hex 2%) 1 applic DAILY@2000 TOPIC 09/14/17 20:00 10/14/17 19:59 09/16/17 21:10 Clonidine HCl (Catapres) 0.1 mg Q6H PRN NG SBP > 160mmHg 09/09/17 13:40 09/22/17 13:39 Dextrose (Dextrose 50%) STAT PRN IV Hypoglycemia 09/12/17 06:30 10/12/17 06:29 Dextrose/Sodium Chloride 1,000 ml @ 50 mls/hr Q20H IV 09/10/17 14:30 10/10/17 14:29 09/16/17 17:12 Enoxaparin Sodium (Lovenox) 70 mg Q24H SUBQ 09/17/17 09:00 10/17/17 08:59 09/17/17 08:37 Insulin Aspart (NovoLOG) EVERY 6 HOURS SUBQ 09/12/17 06:30 10/12/17 06:29 09/17/17 00:57 Insulin Detemir (Levemir) 8 units QHS SUBQ 09/12/17 21:00 10/11/17 08:59 09/16/17 21:10 Lactulose (Cephulac) 30 gm THREE TIMES A DAY GT 09/10/17 10:15 10/10/17 10:14 09/17/17 08:34 Lansoprazole (Prevacid) 30 mg ACBREAKFAST NG 09/10/17 06:30 10/10/17 06:29 09/17/17 06:24 Levothyroxine Sodium (Synthroid) 100 mcg ACBREAKFAST NG 09/10/17 06:30 10/10/17 06:29 09/17/17 06:24 Linezolid 300 ml @ 300 mls/hr Q12HR IVPB 09/17/17 13:00 09/24/17 12:59 Losartan Potassium (Cozaar) 50 mg DAILY NG 09/10/17 09:00 09/22/17 08:59 09/17/17 08:34 Metronidazole (Flagyl) 500 mg EVERY 8 HOURS ORAL 09/17/17 14:00 09/24/17 13:59 Micafungin Sodium 100 mg/Sodium Chloride 100 ml @ 100 mls/hr Q24H IVPB 09/15/17 15:00 09/22/17 14:59 09/16/17 15:26 Multivitamins (Multivitamins) 1 tab DAILY ORAL 09/10/17 09:00 09/18/17 08:59 09/17/17 08:34 Ondansetron HCl (Zofran) 4 mg Q6H PRN NG Nausea & Vomiting 09/09/17 15:30 09/18/17 07:59 09/10/17 20:49 Oxycodone/ Acetaminophen (Percocet 5-325) 1 tab Q4H PRN ORAL Severe Pain (Pain Scale 7-10) 09/16/17 06:30 09/18/17 16:59 09/17/17 05:45 Quetiapine Fumarate (SEROquel) 12.5 mg Q12H PRN NG Agitation 09/14/17 15:00 09/29/17 13:44 JERO CALI DO Sep 17, 2017 12:50
[2017-09-17] MEDS: metroNIDAZOLE 500mg tab ORAL SCH ×2 (13:46→21:06)
--- NOTE | 2017-09-17 14:03 | General Progress Note ---
Progress Note Progress Note Afebrile. Pt c/o generalized pain, the sacral decubitus has a dry eschar, no fluctuance to suggest an abscess. The rt AKA stump is clean. WBC remains elevated to 24.7. There is no need for debridement at this time. If she becomes febrile we should consider a tagged WBC scan,or a gallium scan. Jesus Hebert MD Sep 17, 2017 14:03
[2017-09-17 15:51] VITALS: BP 130/70
[2017-09-17] MEDS: Cefepime HCl 2 GM in NS 110 ML IVPB SCH (16:09)
[2017-09-17] MEDS: D5 1/2NS 1,000 ML IV SCH (18:44)
[2017-09-17 20:00] VITALS: BP 152/81
[2017-09-17] MEDS: Levemir Flexpen SUBQ SCH ×2 (21:00→21:08)
[2017-09-17] MEDS: Dyna-Hex 2% Top Sol 2oz TOPIC SCH (21:06)
[2017-09-17] MEDS: Norco 10mg/325mg tab ORAL PRN (21:36)
--- NOTE | 2017-09-17 22:51 | General Progress Note ---
Assessment/Plan Status: stable Assessment/Plan agitated at times much improved Subjective Neurologic/Psychiatric: Reports: anxiety, depressed, emotional problems Allergies: Coded Allergies: No Known Allergies (Unverified , 08/18/17) Subjective calm no agitation Objective Last 24 Hour Vital Signs Date Time Temp Pulse Resp B/P (MAP) Pulse Ox O2 Delivery O2 Flow Rate FiO2 09/17/17 20:00 98.1 80 20 152/81 93 Nasal Cannula 3.0 09/17/17 19:30 Nasal Cannula 3.0 32 09/17/17 19:30 100 Nasal Cannula 3.0 32 09/17/17 15:51 98.2 83 20 130/70 94 Nasal Cannula 2.0 09/17/17 14:46 98.0 09/17/17 11:41 98.0 75 20 135/52 98 Nasal Cannula 98.0 09/17/17 08:34 76 139/50 09/17/17 08:34 139/50 09/17/17 08:27 97.3 76 20 139/50 98 Nasal Cannula 2.0 09/17/17 08:15 100 Nasal Cannula 3.0 32 09/17/17 08:15 Nasal Cannula 3.0 32 09/17/17 04:00 98.2 83 20 158/77 94 Nasal Cannula 3.0 09/17/17 00:00 98.1 81 18 142/83 96 Nasal Cannula 3.0 Intake and Output 09/17/17 09/18/17 19:00 07:00 Intake Total 1670 ml 565 ml Balance 1670 ml 565 ml Free Water 200 ml IV Total 810 ml 400 ml Tube Feeding 660 ml 165 ml Height (Feet): 5 Height (Inches): 3.00 Weight (Pounds): 152 General Appearance: alert Neurologic: alert, oriented x 3, responsive, depressed affect Audi Bonilla M.D. Sep 17, 2017 22:51
--- NOTE | 2017-09-17 22:52 | Geriatric Progress Note ---
Assessment/Plan Assessment/Plan encephalopathy -cont current care Discussed with: patient Subjective Functional Changes: 09/16/17 Mood/Memory: Reports: anxiety, depressed feelings, emotional problems Geriatric Geriatric Last 24 Hour Vital Signs Date Time Temp Pulse Resp B/P (MAP) Pulse Ox O2 Delivery O2 Flow Rate FiO2 09/17/17 20:00 98.1 80 20 152/81 93 Nasal Cannula 3.0 09/17/17 19:30 Nasal Cannula 3.0 32 09/17/17 19:30 100 Nasal Cannula 3.0 32 09/17/17 15:51 98.2 83 20 130/70 94 Nasal Cannula 2.0 09/17/17 14:46 98.0 09/17/17 11:41 98.0 75 20 135/52 98 Nasal Cannula 98.0 09/17/17 08:34 76 139/50 09/17/17 08:34 139/50 09/17/17 08:27 97.3 76 20 139/50 98 Nasal Cannula 2.0 09/17/17 08:15 100 Nasal Cannula 3.0 32 09/17/17 08:15 Nasal Cannula 3.0 32 09/17/17 04:00 98.2 83 20 158/77 94 Nasal Cannula 3.0 09/17/17 00:00 98.1 81 18 142/83 96 Nasal Cannula 3.0 Intake and Output 09/17/17 09/18/17 19:00 07:00 Intake Total 1670 ml 565 ml Balance 1670 ml 565 ml Free Water 200 ml IV Total 810 ml 400 ml Tube Feeding 660 ml 165 ml Current Medications Medications (Trade) Dose Ordered Sig/Adonay Route PRN Reason Start Time Stop Time Status Last Admin Dose Admin Acetaminophen (Tylenol) 650 mg Q6H PRN ORAL Mild Pain/Temp > 100.5 09/09/17 19:00 09/18/17 18:59 09/10/17 20:49 Acetaminophen/ Hydrocodone Bitart ([place] 10/325) 1 ea Q4H PRN ORAL Moderate Pain (Pain Scale 4-6) 09/15/17 19:00 09/22/17 18:59 09/17/17 21:36 Amlodipine Besylate (Norvasc) 10 mg DAILY NG 09/11/17 09:00 10/11/17 08:59 09/17/17 08:34 Ascorbic Acid (Vitamin C) 500 mg DAILY NG 09/10/17 09:00 09/22/17 08:59 09/17/17 08:34 Cefepime HCl 2 gm/ Sodium Chloride 110 ml @ 220 mls/hr Q24H IVPB 09/15/17 16:00 09/22/17 15:59 09/17/17 16:09 Chlorhexidine Gluconate ([place]-Hex 2%) 1 applic DAILY@2000 TOPIC 09/14/17 20:00 10/14/17 19:59 09/17/17 21:06 Clonidine HCl (Catapres) 0.1 mg Q6H PRN NG SBP > 160mmHg 09/09/17 13:40 09/22/17 13:39 Dextrose (Dextrose 50%) STAT PRN IV Hypoglycemia 09/12/17 06:30 10/12/17 06:29 Dextrose/Sodium Chloride 1,000 ml @ 50 mls/hr Q20H IV 09/10/17 14:30 10/10/17 14:29 09/17/17 18:44 Enoxaparin Sodium (Lovenox) 70 mg Q24H SUBQ 09/17/17 09:00 10/17/17 08:59 09/17/17 08:37 Insulin Aspart (NovoLOG) EVERY 6 HOURS SUBQ 09/12/17 06:30 10/12/17 06:29 09/17/17 16:17 Insulin Detemir (Levemir) 8 units QHS SUBQ 09/12/17 21:00 10/11/17 08:59 09/16/17 21:10 Lactulose (Cephulac) 30 gm THREE TIMES A DAY GT 09/10/17 10:15 10/10/17 10:14 09/17/17 17:54 Lansoprazole (Prevacid) 30 mg ACBREAKFAST NG 09/10/17 06:30 10/10/17 06:29 09/17/17 06:24 Levothyroxine Sodium (Synthroid) 100 mcg ACBREAKFAST NG 09/10/17 06:30 10/10/17 06:29 09/17/17 06:24 Linezolid 300 ml @ 300 mls/hr Q12HR IVPB 09/17/17 13:00 09/24/17 12:59 09/17/17 21:06 Losartan Potassium (Cozaar) 50 mg DAILY NG 09/10/17 09:00 09/22/17 08:59 09/17/17 08:34 Metronidazole (Flagyl) 500 mg EVERY 8 HOURS ORAL 09/17/17 14:00 09/24/17 13:59 09/17/17 21:06 Micafungin Sodium 100 mg/Sodium Chloride 100 ml @ 100 mls/hr Q24H IVPB 09/15/17 15:00 09/22/17 14:59 09/17/17 15:04 Multivitamins (Multivitamins) 1 tab DAILY ORAL 09/10/17 09:00 09/18/17 08:59 09/17/17 08:34 Ondansetron HCl (Zofran) 4 mg Q6H PRN NG Nausea & Vomiting 09/09/17 15:30 09/18/17 07:59 09/10/17 20:49 Oxycodone/ Acetaminophen (Percocet 5-325) 1 tab Q4H PRN ORAL Severe Pain (Pain Scale 7-10) 09/16/17 06:30 09/18/17 16:59 09/17/17 18:52 Quetiapine Fumarate (SEROquel) 12.5 mg Q12H PRN NG Agitation 09/14/17 15:00 09/29/17 13:44 Height (Feet): 5 Height (Inches): 3.00 Weight (Pounds): 152 General Appearance: no apparent distress, alert, good eye contact Neurologic: alert, oriented x3, responsive Psychiatric Behavior: cooperative Language/Speech: intact Orientation: person, place, situation Affect: appropriate Insight: Audi Michael M.D. Sep 17, 2017 22:52
[2017-09-18] VITALS (7 sets, daily range): BP systolic 132–148; BP diastolic 71–118
[2017-09-18] MEDS: metroNIDAZOLE 500mg tab ORAL SCH ×3 (05:44→21:03)
[2017-09-18] MEDS: oxyCODONE HCL/Acetaminophen 5/325mg ORAL PRN ×3 (05:44→16:16)
[2017-09-18] MEDS: NovoLOG Insulin Flexpen SUBQ SCH ×4 (05:45→23:43)
[2017-09-18 08:23] LABS: HEMATOCRIT 29.9 % (37.0-47.0); MEAN CORPUSCULAR VOLUME 98 FL (80-99); PLATELET COUNT 378 K/UL (150-450); RED BLOOD COUNT 3.04 M/UL (4.20-5.40); RED CELL DISTRIBUTION WIDTH 16.7 % (11.6-14.8); WHITE BLOOD COUNT 19.9 K/UL (4.8-10.8)
[2017-09-18 08:28] LABS: ANION GAP 8 mmol/L (5-15); BLOOD UREA NITROGEN 11 mg/dL (7-18); CALCIUM 7.4 MG/DL (8.5-10.1); CARBON DIOXIDE 25 MMOL/L (21-32); CHLORIDE 100 MMOL/L (98-107); CREATININE 0.7 MG/DL (0.55-1.30); POTASSIUM 3.3 MMOL/L (3.5-5.1); SODIUM 133 MMOL/L (136-145)
--- NOTE | 2017-09-18 09:06 | Pulmonology Progress Note ---
Assessment/Plan Assessment/Plan DKA, resolved DM w hypoglycemia, now stable UTI sepsis htn anxiety, depression chronic pain on meds AMS, improved but still confused lactic acidosis respiratory failure, interstitial edema hypothyroid Fungemia RLE gangrene, S/P R AKA DC plan today Mycofungin per ID WBC slowly better DM rx per Dr Lupe swanson RN Subjective Constitutional: Reports: no symptoms Musculoskeletal: Reports: other - pain RLE Allergies: Coded Allergies: No Known Allergies (Unverified , 08/18/17) Subjective pain all over Objective Last 24 Hour Vital Signs Date Time Temp Pulse Resp B/P (MAP) Pulse Ox O2 Delivery O2 Flow Rate FiO2 09/18/17 08:00 98.1 82 19 140/71 98 Nasal Cannula 3.0 09/18/17 07:45 Nasal Cannula 3.0 32 09/18/17 07:45 99 Nasal Cannula 3.0 32 09/18/17 04:00 97.7 83 20 148/96 97 Nasal Cannula 3.0 09/18/17 00:00 97.9 86 18 141/118 Nasal Cannula 3.0 09/17/17 20:00 98.1 80 20 152/81 93 Nasal Cannula 3.0 09/17/17 19:30 Nasal Cannula 3.0 32 09/17/17 19:30 100 Nasal Cannula 3.0 32 09/17/17 15:51 98.2 83 20 130/70 94 Nasal Cannula 2.0 09/17/17 14:46 98.0 09/17/17 11:41 98.0 75 20 135/52 98 Nasal Cannula 98.0 Objective G tube General Appearance: no acute distress HEENT: normocephalic Respiratory/Chest: lungs clear Cardiovascular: normal rate Abdomen: soft, non tender Extremities: no cyanosis, no clubbing, no edema, other - RLE AKA Microbiology Date/Time Source Procedure Growth Status 09/15/17 13:12 Synovial Fluid Gram Stain - Final Resulted 09/15/17 13:12 Synovial Fluid Body Fluid Culture - Preliminary NO GROWTH AFTER 48 HOURS Resulted Laboratory Tests 09/18/17 05:00: White Blood Count 19.9H, Red Blood Count 3.04L, Hemoglobin 10.0L, Hematocrit 29.9L, Mean Corpuscular Volume 98, Mean Corpuscular Hemoglobin 32.9H, Mean Corpuscular Hemoglobin Concent 33.5, Red Cell Distribution Width 16.7H, Platelet Count 378, Mean Platelet Volume 7.3, Neutrophils (%) (Auto) , Lymphocytes (%) (Auto) , Monocytes (%) (Auto) , Eosinophils (%) (Auto) , Basophils (%) (Auto) , Neutrophils % (Manual) [Pending], Lymphocytes % (Manual) [Pending], Platelet Estimate [Pending], Platelet Morphology [Pending], Sodium Level 133L, Potassium Level 3.3L, Chloride Level 100, Carbon Dioxide Level 25, Anion Gap 8, Blood Urea Nitrogen 11, Creatinine 0.7, Estimat Glomerular Filtration Rate > 60, Glucose Level 267H, Calcium Level 7.4L Current Medications Medications (Trade) Dose Ordered Sig/Adonay Route PRN Reason Start Time Stop Time Status Last Admin Dose Admin Acetaminophen (Tylenol) 650 mg Q6H PRN ORAL Mild Pain/Temp > 100.5 09/09/17 19:00 09/18/17 18:59 09/10/17 20:49 Acetaminophen/ Hydrocodone Bitart ([place] 10) 1 ea Q4H PRN ORAL Moderate Pain (Pain Scale 4-6) 09/15/17 19:00 09/22/17 18:59 09/17/17 21:36 Amlodipine Besylate (Norvasc) 10 mg DAILY NG 09/11/17 09:00 10/11/17 08:59 09/17/17 08:34 Ascorbic Acid (Vitamin C) 500 mg DAILY NG 09/10/17 09:00 09/22/17 08:59 09/17/17 08:34 Cefepime HCl 2 gm/ Sodium Chloride 110 ml @ 220 mls/hr Q24H IVPB 09/15/17 16:00 09/22/17 15:59 09/17/17 16:09 Chlorhexidine Gluconate ([place]-Hex 2%) 1 applic DAILY@2000 TOPIC 09/14/17 20:00 10/14/17 19:59 09/17/17 21:06 Clonidine HCl (Catapres) 0.1 mg Q6H PRN NG SBP > 160mmHg 09/09/17 13:40 09/22/17 13:39 Dextrose (Dextrose 50%) STAT PRN IV Hypoglycemia 09/12/17 06:30 10/12/17 06:29 Dextrose/Sodium Chloride 1,000 ml @ 50 mls/hr Q20H IV 09/10/17 14:30 10/10/17 14:29 09/17/17 18:44 Enoxaparin Sodium (Lovenox) 70 mg Q24H SUBQ 09/17/17 09:00 10/17/17 08:59 09/17/17 08:37 Insulin Aspart (NovoLOG) EVERY 6 HOURS SUBQ 09/12/17 06:30 10/12/17 06:29 09/18/17 05:45 Insulin Detemir (Levemir) 8 units QHS SUBQ 09/12/17 21:00 10/11/17 08:59 09/16/17 21:10 Lactulose (Cephulac) 30 gm THREE TIMES A DAY GT 09/10/17 10:15 10/10/17 10:14 09/17/17 17:54 Lansoprazole (Prevacid) 30 mg ACBREAKFAST NG 09/10/17 06:30 10/10/17 06:29 09/18/17 05:44 Levothyroxine Sodium (Synthroid) 100 mcg ACBREAKFAST NG 09/10/17 06:30 10/10/17 06:29 09/18/17 05:44 Linezolid 300 ml @ 300 mls/hr Q12HR IVPB 09/17/17 13:00 09/24/17 12:59 09/17/17 21:06 Losartan Potassium (Cozaar) 50 mg DAILY NG 09/10/17 09:00 09/22/17 08:59 09/17/17 08:34 Metronidazole (Flagyl) 500 mg EVERY 8 HOURS ORAL 09/17/17 14:00 09/24/17 13:59 09/18/17 05:44 Micafungin Sodium 100 mg/Sodium Chloride 100 ml @ 100 mls/hr Q24H IVPB 09/15/17 15:00 09/22/17 14:59 09/17/17 15:04 Oxycodone/ Acetaminophen (Percocet 5-325) 1 tab Q4H PRN ORAL Severe Pain (Pain Scale 7-10) 09/16/17 06:30 09/18/17 16:59 09/18/17 05:44 Potassium Chloride (KCl 10% 40mEq Oral solution) 40 meq TWICE A DAY GT 09/18/17 09:00 09/18/17 18:01 Quetiapine Fumarate (SEROquel) 12.5 mg Q12H PRN NG Agitation 09/14/17 15:00 09/29/17 13:44 PATRICAI LUGO Sep 18, 2017 09:06
[2017-09-18] MEDS: Losartan 50mg tab NG SCH (09:15)
[2017-09-18] MEDS: Lactulose 20gm/30ml UDC GT SCH ×2 (09:15→13:00)
[2017-09-18] MEDS: Ascorbic Acid 500mg tab NG SCH (09:15)
[2017-09-18] MEDS: Enoxaparin Sodium 300mg/3ml vial SUBQ SCH ×2 (09:17→20:35)
[2017-09-18] MEDS: KCl 10% 40mEq/30ml liquid GT SCH ×2 (10:06→18:05)
--- NOTE | 2017-09-18 11:16 | General Progress Note ---
Progress Note Progress Note All noted; pt without c/o pain in leg stump. Exam -- NAD; AVSS; RLE stump warm, incision C/D/I, no hematoma, skin edges viable Labs reviewed. -- stable, s/p right AKA -- cont. routine wound care -- abx per ID -- f/u on intra-op cultures ARNALDO GONG Sep 18, 2017 11:16
[2017-09-18] MEDS: Norco 10mg/325mg tab ORAL PRN ×2 (13:30→21:13)
[2017-09-18] MEDS ORDERED: D5 1/2NS 1000ml IV ONE (13:47)
[2017-09-18] MEDS ORDERED: Tubing IV Secondary IV ONE (13:47)
[2017-09-18] MEDS: Cefepime HCl 2 GM in NS 110 ML IVPB SCH (18:06)
[2017-09-18] MEDS: Dyna-Hex 2% Top Sol 2oz TOPIC SCH (20:01)
[2017-09-18] MEDS: Levemir Flexpen SUBQ SCH (20:31)
[2017-09-18] MEDS: D5 1/2NS 1,000 ML IV SCH (20:38)
--- NOTE | 2017-09-18 22:00 | General Progress Note ---
Assessment/Plan Status: stable, progressing Assessment/Plan agitated at times much improved Subjective Neurologic/Psychiatric: Reports: anxiety, depressed Allergies: Coded Allergies: No Known Allergies (Unverified , 08/18/17) Subjective calm no agitation Objective Last 24 Hour Vital Signs Date Time Temp Pulse Resp B/P (MAP) Pulse Ox O2 Delivery O2 Flow Rate FiO2 09/18/17 19:08 97.7 84 18 141/77 95 Room Air 09/18/17 16:00 97.5 86 20 147/88 98 Nasal Cannula 3.0 09/18/17 12:00 98.5 87 17 132/92 97 Nasal Cannula 3.0 09/18/17 09:15 82 140/71 09/18/17 09:15 140/71 09/18/17 08:00 98.1 82 19 140/71 98 Nasal Cannula 3.0 09/18/17 07:45 Nasal Cannula 3.0 32 09/18/17 07:45 99 Nasal Cannula 3.0 32 09/18/17 04:00 97.7 83 20 148/96 97 Nasal Cannula 3.0 09/18/17 00:00 97.9 86 18 141/118 Nasal Cannula 3.0 Intake and Output 09/18/17 09/19/17 19:00 07:00 Output Total 800 ml Balance -800 ml Output Urine Total 800 ml Laboratory Tests 09/18/17 05:00: White Blood Count 19.9H, Red Blood Count 3.04L, Hemoglobin 10.0L, Hematocrit 29.9L, Mean Corpuscular Volume 98, Mean Corpuscular Hemoglobin 32.9H, Mean Corpuscular Hemoglobin Concent 33.5, Red Cell Distribution Width 16.7H, Platelet Count 378, Mean Platelet Volume 7.3, Neutrophils (%) (Auto) , Lymphocytes (%) (Auto) , Monocytes (%) (Auto) , Eosinophils (%) (Auto) , Basophils (%) (Auto) , Differential Total Cells Counted 100, Neutrophils % ( Manual) 88H, Lymphocytes % (Manual) 6L, Monocytes % (Manual) 5, Eosinophils % ( Manual) 1, Basophils % (Manual) 0, Band Neutrophils 0, Platelet Estimate Adequate, Platelet Morphology Normal, Hypochromasia 1+, Anisocytosis 1+, Sodium Level 133L, Potassium Level 3.3L, Chloride Level 100, Carbon Dioxide Level 25, Anion Gap 8, Blood Urea Nitrogen 11, Creatinine 0.7, Estimat Glomerular Filtration Rate > 60, Glucose Level 267H, Calcium Level 7.4L Height (Feet): 5 Height (Inches): 3.00 Weight (Pounds): 158 General Appearance: alert, confused Neurologic: alert, responsive, disoriented, depressed affect Audi Bonilla M.D. Sep 18, 2017 22:00
--- NOTE | 2017-09-18 22:38 | General Progress Note ---
Assessment/Plan Assessment/Plan Assessment - Respiratory failure - leukocytosis - Anemia - tube feed intolerance - IDDM - s/p PEG - (R) LE ischemia Recommendations - Advance feeds - monitor residuals - GT care - Elevate HOB - abx Subjective Allergies: Coded Allergies: No Known Allergies (Unverified , 08/18/17) Subjective above noted tolerating TF well Objective Last 24 Hour Vital Signs Date Time Temp Pulse Resp B/P (MAP) Pulse Ox O2 Delivery O2 Flow Rate FiO2 09/18/17 19:08 97.7 84 18 141/77 95 Room Air 09/18/17 16:00 97.5 86 20 147/88 98 Nasal Cannula 3.0 09/18/17 12:00 98.5 87 17 132/92 97 Nasal Cannula 3.0 09/18/17 09:15 82 140/71 09/18/17 09:15 140/71 09/18/17 08:00 98.1 82 19 140/71 98 Nasal Cannula 3.0 09/18/17 07:45 Nasal Cannula 3.0 32 09/18/17 07:45 99 Nasal Cannula 3.0 32 09/18/17 04:00 97.7 83 20 148/96 97 Nasal Cannula 3.0 09/18/17 00:00 97.9 86 18 141/118 Nasal Cannula 3.0 Intake and Output 09/18/17 09/19/17 19:00 07:00 Output Total 800 ml Balance -800 ml Output Urine Total 800 ml Laboratory Tests 09/18/17 05:00: White Blood Count 19.9H, Red Blood Count 3.04L, Hemoglobin 10.0L, Hematocrit 29.9L, Mean Corpuscular Volume 98, Mean Corpuscular Hemoglobin 32.9H, Mean Corpuscular Hemoglobin Concent 33.5, Red Cell Distribution Width 16.7H, Platelet Count 378, Mean Platelet Volume 7.3, Neutrophils (%) (Auto) , Lymphocytes (%) (Auto) , Monocytes (%) (Auto) , Eosinophils (%) (Auto) , Basophils (%) (Auto) , Differential Total Cells Counted 100, Neutrophils % ( Manual) 88H, Lymphocytes % (Manual) 6L, Monocytes % (Manual) 5, Eosinophils % ( Manual) 1, Basophils % (Manual) 0, Band Neutrophils 0, Platelet Estimate Adequate, Platelet Morphology Normal, Hypochromasia 1+, Anisocytosis 1+, Sodium Level 133L, Potassium Level 3.3L, Chloride Level 100, Carbon Dioxide Level 25, Anion Gap 8, Blood Urea Nitrogen 11, Creatinine 0.7, Estimat Glomerular Filtration Rate > 60, Glucose Level 267H, Calcium Level 7.4L Height (Feet): 5 Height (Inches): 3.00 Weight (Pounds): 158 Objective Thin AA woman NCAT Neck supple Chest: b/l coarse BS RRR soft mild distention and TTP, (+) GT RLE amputation ERIKA ESPINOSA Sep 18, 2017 22:38
[2017-09-19 04:00] VITALS: BP 89/73
[2017-09-19] MEDS: Norco 10mg/325mg tab ORAL PRN ×4 (04:39→20:42)
[2017-09-19] MEDS: metroNIDAZOLE 500mg tab ORAL SCH ×3 (05:02→20:42)
[2017-09-19] MEDS: NovoLOG Insulin Flexpen SUBQ SCH ×3 (05:51→18:51)
[2017-09-19 06:42] LABS: HEMATOCRIT 26.7 % (37.0-47.0); HEMOGLOBIN 8.9 G/DL (12.0-16.0); MEAN CORPUSCULAR VOLUME 98 FL (80-99); PLATELET COUNT 337 K/UL (150-450); RED BLOOD COUNT 2.73 M/UL (4.20-5.40); RED CELL DISTRIBUTION WIDTH 16.8 % (11.6-14.8); WHITE BLOOD COUNT 20.7 K/UL (4.8-10.8)
[2017-09-19 07:21] LABS: ALANINE AMINOTRANSFERASE 12 U/L (12-78); ALBUMIN/GLOBULIN RATIO 0.2 (1.0-2.7); ALKALINE PHOSPHATASE 225 U/L (46-116); ANION GAP 6 mmol/L (5-15); ASPARTATE AMINO TRANSFERASE 19 U/L (15-37); BILIRUBIN,TOTAL 0.1 MG/DL (0.2-1.0); BLOOD UREA NITROGEN 10 mg/dL (7-18); CALCIUM 7.6 MG/DL (8.5-10.1); CARBON DIOXIDE 26 MMOL/L (21-32); CHLORIDE 102 MMOL/L (98-107); CREATININE 0.7 MG/DL (0.55-1.30); SODIUM 134 MMOL/L (136-145)
[2017-09-19 08:12] VITALS: BP 117/79
[2017-09-19] MEDS: Losartan 50mg tab NG SCH (08:47)
[2017-09-19] MEDS: Ascorbic Acid 500mg tab NG SCH (08:48)
[2017-09-19] MEDS: Enoxaparin Sodium 300mg/3ml vial SUBQ SCH ×2 (08:57→21:04)
--- NOTE | 2017-09-19 09:29 | Infectious Diseases Prog Note ---
Assessment/Plan Assessment/Plan ASSESSMENT AND PLAN: 1. sepsis, klebsiella uti, mrsa pna, leukocytosis and hx fevers, ? c.diff - negative, aspiration risk, s/p g-tube, dwight glabrata fungal uti, fungemia, ct without abscess, right leg/foot ischemia/pad/occlusive dx - cefepime, iv vanco, flagyl, micafungin - check labs, check chest x-ray, recheck cultures - surgery note reviewed - no decubitus infection, no abscess on aspiration - s/p right aka - surveillance blood cultures negative - leukocytosis persist, no fevers - aspiration of right knee culture negative, only 22 wbc 2. The patient has history of diabetes. 3. Hypertension. 4. Anemia, hypernatremia 5. Respiratory insufficiency. 6. Blood sugar and blood pressure control per primary. 7. Diabetic ketoacidosis. 8. History of anxiety. 9. Depression. 10. Dementia. 11. Chronic pain syndrome. 12. Aspiration risk. 13. Altered mental status. 14. Poor historian. 15. No known allergies. 16. Social history is negative. 17. Family history is noncontributory. 18. MAR was noted. 19. Case was discussed with RN. 20. Notes and records were noted. 21. Skin care protocol. 22. I have reviewed the wounds. I do not think this is her source of sepsis. Continue local wound care protocol. wc - likely colonizer. 23. Continue treatment per Dr. Winn. Subjective Constitutional: Denies: fever HEENT: Reports: congestion - mild congestion Respiratory: Denies: shortness of breath Cardiovascular: Denies: chest pain Gastrointestinal/Abdominal: Denies: nausea, vomiting, diarrhea Genitourinary: Reports: other - + rowe Neurologic: Denies: headache Psychiatric: Denies: depression Skin: Denies: rash Hematologic: Denies: bleeding Musculoskeletal: Denies: pain Allergies: Coded Allergies: No Known Allergies (Unverified , 08/18/17) Objective Vital Signs Last 24 Hour Vital Signs Date Time Temp Pulse Resp B/P (MAP) Pulse Ox O2 Delivery O2 Flow Rate FiO2 09/19/17 08:47 117/79 09/19/17 08:12 98.1 90 18 117/79 96 Room Air 09/19/17 07:46 98 Nasal Cannula 3.0 32 09/19/17 07:46 Nasal Cannula 3.0 32 09/19/17 05:38 97.7 09/19/17 04:00 98.4 91 20 89/73 93 Room Air 09/18/17 23:22 97.7 87 20 135/105 95 Room Air 09/18/17 19:15 98 Nasal Cannula 3.0 32 09/18/17 19:15 Nasal Cannula 3.0 32 09/18/17 19:08 97.7 84 18 141/77 95 Room Air 09/18/17 16:00 97.5 86 20 147/88 98 Nasal Cannula 3.0 09/18/17 12:00 98.5 87 17 132/92 97 Nasal Cannula 3.0 Height (Feet): 5 Height (Inches): 3.00 Weight (Pounds): 158 General Appearance: no acute distress HEENT: normocephalic, atraumatic, anicteric, mucous membranes moist, EOMI, pharynx normal, supple, no JVD Respiratory/Chest: crackles/rales, rhonchi - bilaterally Cardiovascular: normal rate, regular rhythm, no gallop/murmur, no JVD Abdomen: normal bowel sounds, soft, non tender, no organomegaly, non distended Genitourinary: other - + rowe - urine slt cloudy Extremities: other - right leg aka, incision c/d per RN, covered now Skin: no rash 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 Gastrostomy in good position. Basilar reticular lung disease, nonspecific. Left basilar pneumonia versus atelectasis. Please correlate clinically. Atherosclerotic disease Rowe catheter in good position. Breathing motion artifact. Anasarca. Trace ascites 09/11- chest x-ray: Impression: Bilateral diffuse interstitial disease. Suspect mostly chronic, but there is possibly new or increased acute component in the retrocardiac region. Suspect small bilateral pleural effusions Arterial studies: right lower extremity occlusive disease noted, report noted 09/16 - chest x-ray - no change Microbiology Date/Time Source Procedure Growth Status 09/11/17 14:45 Blood Blood Culture - Final NO GROWTH AFTER 5 DAYS Complete 09/15/17 13:12 Synovial Fluid Gram Stain - Final Resulted 09/15/17 13:12 Synovial Fluid Body Fluid Culture - Preliminary NO GROWTH AFTER 72 HOURS Resulted 09/07/17 22:00 Sputum Induced Gram Stain - Final Complete 09/07/17 22:00 Sputum Culture - Final Staphylococcus Aureus Usual Upper Respiratory Bertha Complete 09/13/17 06:30 Stool Clostridium difficile Toxin Assay - Final Complete 09/07/17 19:00 Indwelling Cath Urine Culture - Final NO GROWTH AFTER 48 HOURS Complete 08/19/17 07:00 Buttock Left Gram Stain - Final Complete 08/19/17 07:00 Wound Culture - Final Staphylococcus Sp Coag Neg Diphtheroids Complete Laboratory Tests Test 09/19/17 06:00 White Blood Count 20.7 K/UL (4.8-10.8) H Red Blood Count 2.73 M/UL (4.20-5.40) L Hemoglobin 8.9 G/DL (12.0-16.0) L Hematocrit 26.7 % (37.0-47.0) L Mean Corpuscular Volume 98 FL (80-99) Mean Corpuscular Hemoglobin 32.7 PG (27.0-31.0) H Mean Corpuscular Hemoglobin Concent 33.5 G/DL (32.0-36.0) Red Cell Distribution Width 16.8 % (11.6-14.8) H Platelet Count 337 K/UL (150-450) Mean Platelet Volume 7.0 FL (6.5-10.1) Neutrophils (%) (Auto) % (45.0-75.0) Lymphocytes (%) (Auto) % (20.0-45.0) Monocytes (%) (Auto) % (1.0-10.0) Eosinophils (%) (Auto) % (0.0-3.0) Basophils (%) (Auto) % (0.0-2.0) Differential Total Cells Counted 100 Neutrophils % (Manual) 92 % (45-75) H Lymphocytes % (Manual) 5 % (20-45) L Monocytes % (Manual) 3 % (1-10) Eosinophils % (Manual) 0 % (0-3) Basophils % (Manual) 0 % (0-2) Band Neutrophils 0 % (0-8) Platelet Estimate Adequate Platelet Morphology Normal Sodium Level 134 MMOL/L (136-145) L Potassium Level 4.0 MMOL/L (3.5-5.1) Chloride Level 102 MMOL/L (98-107) Carbon Dioxide Level 26 MMOL/L (21-32) Anion Gap 6 mmol/L (5-15) Blood Urea Nitrogen 10 mg/dL (7-18) Creatinine 0.7 MG/DL (0.55-1.30) Estimat Glomerular Filtration Rate > 60 mL/min (>60) Glucose Level 111 MG/DL (74-106) #H Calcium Level 7.6 MG/DL (8.5-10.1) L Total Bilirubin 0.1 MG/DL (0.2-1.0) L Aspartate Amino Transf (AST/SGOT) 19 U/L (15-37) Alanine Aminotransferase (ALT/SGPT) 12 U/L (12-78) Alkaline Phosphatase 225 U/L (46-116) H Total Protein 6.0 G/DL (6.4-8.2) L Albumin 1.0 G/DL (3.4-5.0) L Globulin 5.0 g/dL Albumin/Globulin Ratio 0.2 (1.0-2.7) L Current Medications Medications (Trade) Dose Ordered Sig/Adonay Route PRN Reason Start Time Stop Time Status Last Admin Dose Admin Acetaminophen/ Hydrocodone Bitart ([place] 10/325) 1 ea Q4H PRN ORAL Moderate Pain (Pain Scale 4-6) 09/15/17 19:00 09/22/17 18:59 09/19/17 08:48 Amlodipine Besylate (Norvasc) 10 mg DAILY NG 09/11/17 09:00 10/11/17 08:59 09/18/17 09:15 Ascorbic Acid (Vitamin C) 500 mg DAILY NG 09/10/17 09:00 09/22/17 08:59 09/19/17 08:48 Cefepime HCl 2 gm/ Sodium Chloride 110 ml @ 220 mls/hr Q24H IVPB 09/15/17 16:00 09/22/17 15:59 09/18/17 18:06 Chlorhexidine Gluconate ([place]-Hex 2%) 1 applic DAILY@2000 TOPIC 09/14/17 20:00 10/14/17 19:59 09/18/17 20:01 Clonidine HCl (Catapres) 0.1 mg Q6H PRN NG SBP > 160mmHg 09/09/17 13:40 09/22/17 13:39 Dextrose (Dextrose 50%) STAT PRN IV Hypoglycemia 09/12/17 06:30 10/12/17 06:29 Dextrose/Sodium Chloride 1,000 ml @ 50 mls/hr Q20H IV 09/10/17 14:30 10/10/17 14:29 09/18/17 20:38 Enoxaparin Sodium (Lovenox) 70 mg Q12HR SUBQ 09/18/17 21:00 10/18/17 20:59 09/19/17 08:57 Insulin Aspart (NovoLOG) EVERY 6 HOURS SUBQ 09/12/17 06:30 10/12/17 06:29 09/19/17 05:51 Insulin Detemir (Levemir) 8 units QHS SUBQ 09/12/17 21:00 10/11/17 08:59 09/18/17 20:31 Lansoprazole (Prevacid) 30 mg ACBREAKFAST NG 09/10/17 06:30 10/10/17 06:29 09/19/17 05:51 Levothyroxine Sodium (Synthroid) 100 mcg ACBREAKFAST NG 09/10/17 06:30 10/10/17 06:29 09/19/17 05:52 Linezolid 300 ml @ 300 mls/hr Q12HR IVPB 09/17/17 13:00 09/24/17 12:59 09/19/17 08:59 Losartan Potassium (Cozaar) 50 mg DAILY NG 09/10/17 09:00 09/22/17 08:59 09/19/17 08:47 Metronidazole (Flagyl) 500 mg EVERY 8 HOURS ORAL 09/17/17 14:00 09/24/17 13:59 09/19/17 05:02 Micafungin Sodium 100 mg/Sodium Chloride 100 ml @ 100 mls/hr Q24H IVPB 09/15/17 15:00 09/22/17 14:59 09/18/17 16:16 Quetiapine Fumarate (SEROquel) 12.5 mg Q12H PRN NG Agitation 09/14/17 15:00 09/29/17 13:44 YASIR RUEDA Sep 19, 2017 09:29
[2017-09-19 10:55] LABS: APPEARANCE,URINE CLEAR; BILIRUBIN, URINE NEGATIVE (NEGATIVE); COLOR,URINE PALE YELLOW; GLUCOSE, URINE (UA) 3+ (NEGATIVE); KETONES,URINE NEGATIVE (NEGATIVE); LEUKOCYTE ESTERASE ,URINE NEGATIVE (NEGATIVE); NITRITE,URINE NEGATIVE (NEGATIVE); PH,URINE 6 (4.5-8.0); PROTEIN,URINE 2+ (NEGATIVE); UROBILINOGEN,URINE NORMAL MG/DL (0.0-1.0)
[2017-09-19] MEDS: Vancomycin 750mg/NS 250ml IVPB SCH (11:00)
--- NOTE | 2017-09-19 11:20 | Diagnostic Imaging Report ---
Indication: Dyspnea Comparison: 09/16/17 A single view chest radiograph was obtained. Findings: Interstitial opacities again demonstrated diffusely. The heart is enlarged. In addition there is asymmetric parenchymal density in the left midlung and lung base which may be superimposed pneumonia. A PICC line is present in good position unchanged. Bones are osteopenic. A left pleural effusion is also suspected. Impression: No significant change. Diffuse interstitial disease. Suspected edema/CHF. Superimposed pneumonia versus asymmetric alveolar airspace disease in the left lung. Left pleural effusion suspected.
[2017-09-19 11:21] VITALS: BP 142/84
--- NOTE | 2017-09-19 11:55 | Pulmonology Progress Note ---
Assessment/Plan Assessment/Plan DKA, resolved DM w hypoglycemia, now stable UTI sepsis htn anxiety, depression chronic pain on meds AMS, improved but still confused lactic acidosis respiratory failure, interstitial edema hypothyroid Fungemia RLE gangrene, S/P R AKA Pneumonia DC plan cancelled due to SOB and pneumonia Abx per ID WBC still 20 k DM rx per Dr Lupe swanson RN Subjective Respiratory: Reports: productive cough, shortness of breath Allergies: Coded Allergies: No Known Allergies (Unverified , 08/18/17) Subjective pain all over Objective Last 24 Hour Vital Signs Date Time Temp Pulse Resp B/P (MAP) Pulse Ox O2 Delivery O2 Flow Rate FiO2 09/19/17 11:49 85 20 95 Nasal Cannula 4.0 09/19/17 11:42 85 20 Nasal Cannula 4.0 09/19/17 11:21 98.2 90 20 142/84 97 Nasal Cannula 3.0 09/19/17 09:47 98.1 09/19/17 08:47 117/79 09/19/17 08:12 98.1 90 18 117/79 96 Room Air 09/19/17 07:46 98 Nasal Cannula 3.0 32 09/19/17 07:46 Nasal Cannula 3.0 32 09/19/17 04:00 98.4 91 20 89/73 93 Room Air 09/18/17 23:22 97.7 87 20 135/105 95 Room Air 09/18/17 19:15 98 Nasal Cannula 3.0 32 09/18/17 19:15 Nasal Cannula 3.0 32 09/18/17 19:08 97.7 84 18 141/77 95 Room Air 09/18/17 16:00 97.5 86 20 147/88 98 Nasal Cannula 3.0 09/18/17 12:00 98.5 87 17 132/92 97 Nasal Cannula 3.0 Objective G tube General Appearance: no acute distress, cachetic Respiratory/Chest: rhonchi Cardiovascular: normal rate Abdomen: soft, non tender Laboratory Tests 09/19/17 06:00: White Blood Count 20.7H, Red Blood Count 2.73L, Hemoglobin 8.9L, Hematocrit 26.7L, Mean Corpuscular Volume 98, Mean Corpuscular Hemoglobin 32.7H, Mean Corpuscular Hemoglobin Concent 33.5, Red Cell Distribution Width 16.8H, Platelet Count 337, Mean Platelet Volume 7.0, Neutrophils (%) (Auto) , Lymphocytes (%) (Auto) , Monocytes (%) (Auto) , Eosinophils (%) (Auto) , Basophils (%) (Auto) , Differential Total Cells Counted 100, Neutrophils % ( Manual) 92H, Lymphocytes % (Manual) 5L, Monocytes % (Manual) 3, Eosinophils % ( Manual) 0, Basophils % (Manual) 0, Band Neutrophils 0, Platelet Estimate Adequate, Platelet Morphology Normal, Sodium Level 134L, Potassium Level 4.0, Chloride Level 102, Carbon Dioxide Level 26, Anion Gap 6, Blood Urea Nitrogen 10 , Creatinine 0.7, Estimat Glomerular Filtration Rate > 60, Glucose Level 111#H, Calcium Level 7.6L, Total Bilirubin 0.1L, Aspartate Amino Transf (AST/SGOT) 19, Alanine Aminotransferase (ALT/SGPT) 12, Alkaline Phosphatase 225H, Total Protein 6.0L, Albumin 1.0L, Globulin 5.0, Albumin/Globulin Ratio 0.2L 09/19/17 10:00: Urine Color Pale yellow, Urine Appearance Clear, Urine pH 6, Urine Specific [place] 1.010, Urine Protein 2+H, Urine Glucose (UA) 3+H, Urine Ketones Negative , Urine Occult Blood Negative, Urine Nitrite Negative, Urine Bilirubin Negative , Urine Urobilinogen Normal, Urine Leukocyte Esterase Negative, Urine RBC 0-2, Urine WBC 0-2, Urine Squamous Epithelial Cells Occasional, Urine Bacteria Occasional, Urine Mucus FewH Current Medications Medications (Trade) Dose Ordered Sig/Adonay Route PRN Reason Start Time Stop Time Status Last Admin Dose Admin Acetaminophen/ Hydrocodone Bitart ([place] 10/325) 1 ea Q4H PRN ORAL Moderate Pain (Pain Scale 4-6) 09/15/17 19:00 09/22/17 18:59 09/19/17 08:48 Albuterol/ Ipratropium (Albuterol/ Ipratropium) 3 ml ONCE ONCE [facility] 09/19/17 12:00 09/19/17 12:01 09/19/17 11:47 Albuterol/ Ipratropium (Albuterol/ Ipratropium) 3 ml Q4HRT [facility] 09/19/17 15:00 09/24/17 14:59 Amlodipine Besylate (Norvasc) 10 mg DAILY 09/11/17 09:00 10/11/17 08:59 09/18/17 09:15 Ascorbic Acid (Vitamin C) 500 mg DAILY NG 09/10/17 09:00 09/22/17 08:59 09/19/17 08:48 Cefepime HCl 2 gm/ Sodium Chloride 110 ml @ 220 mls/hr Q24H IVPB 09/15/17 16:00 09/22/17 15:59 09/18/17 18:06 Chlorhexidine Gluconate ([place]-Hex 2%) 1 applic DAILY@2000 TOPIC 09/14/17 20:00 10/14/17 19:59 09/18/17 20:01 Clonidine HCl (Catapres) 0.1 mg Q6H PRN NG SBP > 160mmHg 09/09/17 13:40 09/22/17 13:39 Dextrose (Dextrose 50%) STAT PRN IV Hypoglycemia 09/12/17 06:30 10/12/17 06:29 Dextrose/Sodium Chloride 1,000 ml @ 50 mls/hr Q20H IV 09/10/17 14:30 10/10/17 14:29 09/18/17 20:38 Enoxaparin Sodium (Lovenox) 70 mg Q12HR SUBQ 09/18/17 21:00 10/18/17 20:59 09/19/17 08:57 Insulin Aspart (NovoLOG) EVERY 6 HOURS SUBQ 09/12/17 06:30 10/12/17 06:29 09/19/17 11:27 Insulin Detemir (Levemir) 8 units QHS SUBQ 09/12/17 21:00 10/11/17 08:59 09/18/17 20:31 Lansoprazole (Prevacid) 30 mg ACBREAKFAST NG 09/10/17 06:30 10/10/17 06:29 09/19/17 05:51 Levothyroxine Sodium (Synthroid) 100 mcg ACBREAKFAST NG 09/10/17 06:30 10/10/17 06:29 09/19/17 05:52 Losartan Potassium (Cozaar) 50 mg DAILY NG 09/10/17 09:00 09/22/17 08:59 09/19/17 08:47 Metronidazole (Flagyl) 500 mg EVERY 8 HOURS ORAL 09/17/17 14:00 09/24/17 13:59 09/19/17 05:02 Micafungin Sodium 100 mg/Sodium Chloride 100 ml @ 100 mls/hr Q24H IVPB 09/15/17 15:00 09/22/17 14:59 09/18/17 16:16 Quetiapine Fumarate (SEROquel) 12.5 mg Q12H PRN NG Agitation 09/14/17 15:00 09/29/17 13:44 Vancomycin HCl (Vanco rx to dose) 1 ea DAILY PRN MISC Per rx protocol 09/19/17 09:30 10/19/17 09:29 Vancomycin/Sodium Chloride 250 ml @ 166.667 mls/hr Q24H IVPB 09/19/17 11:00 09/24/17 10:59 09/19/17 11:00 PATRICIA LUGO Sep 19, 2017 11:55
[2017-09-19] MEDS ORDERED: Albuterol/Ipratropium 3ml neb HHN ONE (12:00)
--- NOTE | 2017-09-19 13:38 | General Progress Note ---
Assessment/Plan Status: stable, progressing Assessment/Plan agitated at times much improved Subjective Allergies: Coded Allergies: No Known Allergies (Unverified , 08/18/17) Subjective calm no agitation Objective Last 24 Hour Vital Signs Date Time Temp Pulse Resp B/P (MAP) Pulse Ox O2 Delivery O2 Flow Rate FiO2 09/19/17 11:55 89 22 99 Nasal Cannula 4.0 09/19/17 11:49 85 20 95 Nasal Cannula 4.0 09/19/17 11:42 85 20 Nasal Cannula 4.0 09/19/17 11:21 98.2 90 20 142/84 97 Nasal Cannula 3.0 09/19/17 09:47 98.1 09/19/17 08:47 117/79 09/19/17 08:12 98.1 90 18 117/79 96 Room Air 09/19/17 07:46 98 Nasal Cannula 3.0 32 09/19/17 07:46 Nasal Cannula 3.0 32 09/19/17 04:00 98.4 91 20 89/73 93 Room Air 09/18/17 23:22 97.7 87 20 135/105 95 Room Air 09/18/17 19:15 98 Nasal Cannula 3.0 32 09/18/17 19:15 Nasal Cannula 3.0 32 09/18/17 19:08 97.7 84 18 141/77 95 Room Air 09/18/17 16:00 97.5 86 20 147/88 98 Nasal Cannula 3.0 Laboratory Tests 09/19/17 06:00: White Blood Count 20.7H, Red Blood Count 2.73L, Hemoglobin 8.9L, Hematocrit 26.7L, Mean Corpuscular Volume 98, Mean Corpuscular Hemoglobin 32.7H, Mean Corpuscular Hemoglobin Concent 33.5, Red Cell Distribution Width 16.8H, Platelet Count 337, Mean Platelet Volume 7.0, Neutrophils (%) (Auto) , Lymphocytes (%) (Auto) , Monocytes (%) (Auto) , Eosinophils (%) (Auto) , Basophils (%) (Auto) , Differential Total Cells Counted 100, Neutrophils % ( Manual) 92H, Lymphocytes % (Manual) 5L, Monocytes % (Manual) 3, Eosinophils % ( Manual) 0, Basophils % (Manual) 0, Band Neutrophils 0, Platelet Estimate Adequate, Platelet Morphology Normal, Sodium Level 134L, Potassium Level 4.0, Chloride Level 102, Carbon Dioxide Level 26, Anion Gap 6, Blood Urea Nitrogen 10 , Creatinine 0.7, Estimat Glomerular Filtration Rate > 60, Glucose Level 111#H, Calcium Level 7.6L, Total Bilirubin 0.1L, Aspartate Amino Transf (AST/SGOT) 19, Alanine Aminotransferase (ALT/SGPT) 12, Alkaline Phosphatase 225H, Total Protein 6.0L, Albumin 1.0L, Globulin 5.0, Albumin/Globulin Ratio 0.2L 09/19/17 10:00: Urine Color Pale yellow, Urine Appearance Clear, Urine pH 6, Urine Specific [place] 1.010, Urine Protein 2+H, Urine Glucose (UA) 3+H, Urine Ketones Negative , Urine Occult Blood Negative, Urine Nitrite Negative, Urine Bilirubin Negative , Urine Urobilinogen Normal, Urine Leukocyte Esterase Negative, Urine RBC 0-2, Urine WBC 0-2, Urine Squamous Epithelial Cells Occasional, Urine Bacteria Occasional, Urine Mucus FewH Height (Feet): 5 Height (Inches): 3.00 Weight (Pounds): 158 General Appearance: alert, confused Neurologic: alert, responsive, depressed affect Audi Bonilla M.D. Sep 19, 2017 13:38
[2017-09-19] MEDS: Albuterol/Ipratropium 3ml neb HHN SCH ×3 (15:27→23:05)
[2017-09-19 16:01] VITALS: BP 143/72
[2017-09-19] MEDS: Cefepime HCl 2 GM in NS 110 ML IVPB SCH (16:20)
[2017-09-19] MEDS: D5 1/2NS 1,000 ML IV SCH (18:41)
--- NOTE | 2017-09-19 19:19 | General Progress Note ---
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 Objective Last 24 Hour Vital Signs Date Time Temp Pulse Resp B/P (MAP) Pulse Ox O2 Delivery O2 Flow Rate FiO2 09/19/17 16:01 98.0 87 20 143/72 98 Nasal Cannula 3.0 09/19/17 15:34 87 20 Nasal Cannula 4.0 09/19/17 15:25 83 20 95 Nasal Cannula 4.0 09/19/17 13:49 98.0 09/19/17 11:55 89 22 99 Nasal Cannula 4.0 09/19/17 11:49 85 20 95 Nasal Cannula 4.0 09/19/17 11:42 85 20 Nasal Cannula 4.0 09/19/17 11:21 98.2 90 20 142/84 97 Nasal Cannula 3.0 09/19/17 08:47 117/79 09/19/17 08:12 98.1 90 18 117/79 96 Room Air 09/19/17 07:46 98 Nasal Cannula 3.0 32 09/19/17 07:46 Nasal Cannula 3.0 32 09/19/17 04:00 98.4 91 20 89/73 93 Room Air 09/18/17 23:22 97.7 87 20 135/105 95 Room Air Intake and Output 09/19/17 09/20/17 19:00 07:00 Intake Total 1250 ml Output Total 800 ml Balance 450 ml Free Water 200 ml IV Total 500 ml Tube Feeding 550 ml Output Urine Total 800 ml # Bowel Movements 1 Laboratory Tests 09/19/17 06:00: White Blood Count 20.7H, Red Blood Count 2.73L, Hemoglobin 8.9L, Hematocrit 26.7L, Mean Corpuscular Volume 98, Mean Corpuscular Hemoglobin 32.7H, Mean Corpuscular Hemoglobin Concent 33.5, Red Cell Distribution Width 16.8H, Platelet Count 337, Mean Platelet Volume 7.0, Neutrophils (%) (Auto) , Lymphocytes (%) (Auto) , Monocytes (%) (Auto) , Eosinophils (%) (Auto) , Basophils (%) (Auto) , Differential Total Cells Counted 100, Neutrophils % ( Manual) 92H, Lymphocytes % (Manual) 5L, Monocytes % (Manual) 3, Eosinophils % ( Manual) 0, Basophils % (Manual) 0, Band Neutrophils 0, Platelet Estimate Adequate, Platelet Morphology Normal, Sodium Level 134L, Potassium Level 4.0, Chloride Level 102, Carbon Dioxide Level 26, Anion Gap 6, Blood Urea Nitrogen 10 , Creatinine 0.7, Estimat Glomerular Filtration Rate > 60, Glucose Level 111#H, Calcium Level 7.6L, Total Bilirubin 0.1L, Aspartate Amino Transf (AST/SGOT) 19, Alanine Aminotransferase (ALT/SGPT) 12, Alkaline Phosphatase 225H, Total Protein 6.0L, Albumin 1.0L, Globulin 5.0, Albumin/Globulin Ratio 0.2L 09/19/17 10:00: Urine Color Pale yellow, Urine Appearance Clear, Urine pH 6, Urine Specific [place] 1.010, Urine Protein 2+H, Urine Glucose (UA) 3+H, Urine Ketones Negative , Urine Occult Blood Negative, Urine Nitrite Negative, Urine Bilirubin Negative , Urine Urobilinogen Normal, Urine Leukocyte Esterase Negative, Urine RBC 0-2, Urine WBC 0-2, Urine Squamous Epithelial Cells Occasional, Urine Bacteria Occasional, Urine Mucus FewH Height (Feet): 5 Height (Inches): 3.00 Weight (Pounds): 158 Objective Thin AA woman NCAT Neck supple Chest: b/l coarse BS RRR soft mild distention and TTP, (+) GT RLE amputation ERIKA ESPINOSA Sep 19, 2017 19:19
[2017-09-19 20:00] VITALS: BP 151/87
[2017-09-19] MEDS: Dyna-Hex 2% Top Sol 2oz TOPIC SCH (20:41)
[2017-09-19] MEDS: Levemir Flexpen SUBQ SCH (20:49)
[2017-09-20] VITALS: BP 152/82
[2017-09-20] MEDS: Albuterol/Ipratropium 3ml neb HHN SCH ×5 (03:05→19:41)
[2017-09-20 04:00] VITALS: BP 139/87
[2017-09-20] MEDS: Norco 10mg/325mg tab ORAL PRN ×3 (04:23→16:38)
--- NOTE | 2017-09-20 05:51 | General Progress Note ---
Assessment/Plan Problem List: (1) DKA (diabetic ketoacidoses) ICD Codes: E13.10 - Other specified diabetes mellitus with ketoacidosis without coma SNOMED: 27457313, 986836542 (2) Altered level of consciousness ICD Codes: R40.4 - Transient alteration of awareness SNOMED: 1245888 (3) Hyperkalemia ICD Codes: E87.5 - Hyperkalemia SNOMED: 47523470 (4) Rhabdomyolysis ICD Codes: M62.82 - Rhabdomyolysis SNOMED: 808808222, 094722284 (5) Diabetes mellitus out of control ICD Codes: E11.65 - Type 2 diabetes mellitus with hyperglycemia SNOMED: 807383916, 47112593 (6) Sepsis ICD Codes: A41.9 - Sepsis, unspecified organism SNOMED: 97502351 (7) Hypothyroidism ICD Codes: E03.9 - Hypothyroidism, unspecified SNOMED: 71712549 Assessment/Plan increase Levemir to 10 units qhs DC D5NS continue Novolog sliding scale sensitive scale every 6 hours Continue Levothyroxine to 100 mcg daily - increased from 75 mcg on 09/09/17 repeat TSH in 2 weeks Subjective ROS Limited/Unobtainable: Yes Allergies: Coded Allergies: No Known Allergies (Unverified , 08/18/17) All Systems: reviewed and negative except above Subjective TF tolerated on D5NS BG on higher side Objective Last 24 Hour Vital Signs Date Time Temp Pulse Resp B/P (MAP) Pulse Ox O2 Delivery O2 Flow Rate FiO2 09/20/17 05:22 97.9 09/20/17 03:06 85 20 98 Nasal Cannula 3.0 09/20/17 03:00 83 20 98 Nasal Cannula 3.0 09/20/17 00:00 97.9 86 20 152/82 100 Nasal Cannula 3.0 09/19/17 23:06 80 20 99 Nasal Cannula 4.0 09/19/17 23:00 73 20 97 Nasal Cannula 3.0 09/19/17 20:00 98.1 89 20 151/87 94 Nasal Cannula 3.0 09/19/17 19:29 83 20 98 Nasal Cannula 4.0 09/19/17 19:29 98 Nasal Cannula 3.0 32 09/19/17 19:29 Nasal Cannula 3.0 32 09/19/17 19:25 81 20 96 Nasal Cannula 3.0 09/19/17 16:01 98.0 87 20 143/72 98 Nasal Cannula 3.0 09/19/17 15:34 87 20 Nasal Cannula 4.0 09/19/17 15:25 83 20 95 Nasal Cannula 4.0 09/19/17 11:55 89 22 99 Nasal Cannula 4.0 09/19/17 11:49 85 20 95 Nasal Cannula 4.0 09/19/17 11:42 85 20 Nasal Cannula 4.0 09/19/17 11:21 98.2 90 20 142/84 97 Nasal Cannula 3.0 09/19/17 08:47 117/79 09/19/17 08:12 98.1 90 18 117/79 96 Room Air 09/19/17 07:46 98 Nasal Cannula 3.0 32 09/19/17 07:46 Nasal Cannula 3.0 32 Laboratory Tests 09/19/17 06:00: White Blood Count 20.7H, Red Blood Count 2.73L, Hemoglobin 8.9L, Hematocrit 26.7L, Mean Corpuscular Volume 98, Mean Corpuscular Hemoglobin 32.7H, Mean Corpuscular Hemoglobin Concent 33.5, Red Cell Distribution Width 16.8H, Platelet Count 337, Mean Platelet Volume 7.0, Neutrophils (%) (Auto) , Lymphocytes (%) (Auto) , Monocytes (%) (Auto) , Eosinophils (%) (Auto) , Basophils (%) (Auto) , Differential Total Cells Counted 100, Neutrophils % ( Manual) 92H, Lymphocytes % (Manual) 5L, Monocytes % (Manual) 3, Eosinophils % ( Manual) 0, Basophils % (Manual) 0, Band Neutrophils 0, Platelet Estimate Adequate, Platelet Morphology Normal, Sodium Level 134L, Potassium Level 4.0, Chloride Level 102, Carbon Dioxide Level 26, Anion Gap 6, Blood Urea Nitrogen 10 , Creatinine 0.7, Estimat Glomerular Filtration Rate > 60, Glucose Level 111#H, Calcium Level 7.6L, Total Bilirubin 0.1L, Aspartate Amino Transf (AST/SGOT) 19, Alanine Aminotransferase (ALT/SGPT) 12, Alkaline Phosphatase 225H, Total Protein 6.0L, Albumin 1.0L, Globulin 5.0, Albumin/Globulin Ratio 0.2L 09/19/17 10:00: Urine Color Pale yellow, Urine Appearance Clear, Urine pH 6, Urine Specific [place] 1.010, Urine Protein 2+H, Urine Glucose (UA) 3+H, Urine Ketones Negative , Urine Occult Blood Negative, Urine Nitrite Negative, Urine Bilirubin Negative , Urine Urobilinogen Normal, Urine Leukocyte Esterase Negative, Urine RBC 0-2, Urine WBC 0-2, Urine Squamous Epithelial Cells Occasional, Urine Bacteria Occasional, Urine Mucus FewH Height (Feet): 5 Height (Inches): 3.00 Weight (Pounds): 158 General Appearance: no apparent distress Neck: non-tender Cardiovascular: normal rate Respiratory/Chest: decreased breath sounds Abdomen: normal bowel sounds Objective Current Medications Medications (Trade) Dose Ordered Sig/Adonay Route PRN Reason Start Time Stop Time Status Last Admin Dose Admin Acetaminophen/ Hydrocodone Bitart ([place] 10/325) 1 ea Q4H PRN ORAL Moderate Pain (Pain Scale 4-6) 09/15/17 19:00 09/22/17 18:59 09/20/17 04:23 Albuterol/ Ipratropium (Albuterol/ Ipratropium) 3 ml Q4HRT HHN 09/19/17 15:00 09/24/17 14:59 09/20/17 03:05 Amlodipine Besylate (Norvasc) 10 mg DAILY NG 09/11/17 09:00 10/11/17 08:59 09/18/17 09:15 Ascorbic Acid (Vitamin C) 500 mg DAILY NG 09/10/17 09:00 09/22/17 08:59 09/19/17 08:48 Cefepime HCl 2 gm/ Sodium Chloride 110 ml @ 220 mls/hr Q24H IVPB 09/15/17 16:00 09/22/17 15:59 09/19/17 16:20 Chlorhexidine Gluconate ([place]-Hex 2%) 1 applic DAILY@2000 TOPIC 09/14/17 20:00 10/14/17 19:59 09/19/17 20:41 Clonidine HCl (Catapres) 0.1 mg Q6H PRN NG SBP > 160mmHg 09/09/17 13:40 09/22/17 13:39 Dextrose (Dextrose 50%) STAT PRN IV Hypoglycemia 09/12/17 06:30 10/12/17 06:29 Dextrose/Sodium Chloride 1,000 ml @ 50 mls/hr Q20H IV 09/10/17 14:30 10/10/17 14:29 09/19/17 18:41 Enoxaparin Sodium (Lovenox) 70 mg Q12HR SUBQ 09/18/17 21:00 10/18/17 20:59 09/19/17 21:04 Insulin Aspart (NovoLOG) EVERY 6 HOURS SUBQ 09/12/17 06:30 10/12/17 06:29 09/19/17 18:51 Insulin Detemir (Levemir) 8 units QHS SUBQ 09/12/17 21:00 10/11/17 08:59 09/19/17 20:49 Lansoprazole (Prevacid) 30 mg ACBREAKFAST NG 09/10/17 06:30 10/10/17 06:29 09/19/17 05:51 Levothyroxine Sodium (Synthroid) 100 mcg ACBREAKFAST NG 09/10/17 06:30 10/10/17 06:29 09/19/17 05:52 Losartan Potassium (Cozaar) 50 mg DAILY NG 09/10/17 09:00 09/22/17 08:59 09/19/17 08:47 Metronidazole (Flagyl) 500 mg EVERY 8 HOURS ORAL 09/17/17 14:00 09/24/17 13:59 09/19/17 20:42 Micafungin Sodium 100 mg/Sodium Chloride 100 ml @ 100 mls/hr Q24H IVPB 09/15/17 15:00 09/22/17 14:59 09/19/17 14:45 Quetiapine Fumarate (SEROquel) 12.5 mg Q12H PRN NG Agitation 09/14/17 15:00 09/29/17 13:44 Vancomycin HCl (Vanco rx to dose) 1 ea DAILY PRN MISC Per rx protocol 09/19/17 09:30 10/19/17 09:29 Vancomycin/Sodium Chloride 250 ml @ 166.667 mls/hr Q24H IVPB 09/19/17 11:00 09/24/17 10:59 09/19/17 11:00 Item Value Date Time Bedside Blood Glucose 241 mg/dl H 09/20/17 0000 Bedside Blood Glucose 220 mg/dl H 09/19/17 2049 Bedside Blood Glucose 230 mg/dl H 09/19/17 1851 Bedside Blood Glucose 199 mg/dl H 09/19/17 1200 KAYLEE DARNELL Sep 20, 2017 05:50
--- NOTE | 2017-09-20 05:51 | General Progress Note ---
Assessment/Plan Problem List: (1) DKA (diabetic ketoacidoses) ICD Codes: E13.10 - Other specified diabetes mellitus with ketoacidosis without coma SNOMED: 63715175, 209651426 (2) Altered level of consciousness ICD Codes: R40.4 - Transient alteration of awareness SNOMED: 4719271 (3) Hyperkalemia ICD Codes: E87.5 - Hyperkalemia SNOMED: 08693174 (4) Rhabdomyolysis ICD Codes: M62.82 - Rhabdomyolysis SNOMED: 697652229, 335199948 (5) Diabetes mellitus out of control ICD Codes: E11.65 - Type 2 diabetes mellitus with hyperglycemia SNOMED: 695286434, 98486070 (6) Sepsis ICD Codes: A41.9 - Sepsis, unspecified organism SNOMED: 44947751 (7) Hypothyroidism ICD Codes: E03.9 - Hypothyroidism, unspecified SNOMED: 72354391 Assessment/Plan increase Levemir to 10 units qhs DC D5NS continue Novolog sliding scale sensitive scale every 6 hours Continue Levothyroxine to 100 mcg daily - increased from 75 mcg on 09/09/17 repeat TSH in 2 weeks Subjective ROS Limited/Unobtainable: Yes Allergies: Coded Allergies: No Known Allergies (Unverified , 08/18/17) All Systems: reviewed and negative except above Subjective TF tolerated on D5NS BG on higher side Objective Last 24 Hour Vital Signs Date Time Temp Pulse Resp B/P (MAP) Pulse Ox O2 Delivery O2 Flow Rate FiO2 09/20/17 05:22 97.9 09/20/17 03:06 85 20 98 Nasal Cannula 3.0 09/20/17 03:00 83 20 98 Nasal Cannula 3.0 09/20/17 00:00 97.9 86 20 152/82 100 Nasal Cannula 3.0 09/19/17 23:06 80 20 99 Nasal Cannula 4.0 09/19/17 23:00 73 20 97 Nasal Cannula 3.0 09/19/17 20:00 98.1 89 20 151/87 94 Nasal Cannula 3.0 09/19/17 19:29 83 20 98 Nasal Cannula 4.0 09/19/17 19:29 98 Nasal Cannula 3.0 32 09/19/17 19:29 Nasal Cannula 3.0 32 09/19/17 19:25 81 20 96 Nasal Cannula 3.0 09/19/17 16:01 98.0 87 20 143/72 98 Nasal Cannula 3.0 09/19/17 15:34 87 20 Nasal Cannula 4.0 09/19/17 15:25 83 20 95 Nasal Cannula 4.0 09/19/17 11:55 89 22 99 Nasal Cannula 4.0 09/19/17 11:49 85 20 95 Nasal Cannula 4.0 09/19/17 11:42 85 20 Nasal Cannula 4.0 09/19/17 11:21 98.2 90 20 142/84 97 Nasal Cannula 3.0 09/19/17 08:47 117/79 09/19/17 08:12 98.1 90 18 117/79 96 Room Air 09/19/17 07:46 98 Nasal Cannula 3.0 32 09/19/17 07:46 Nasal Cannula 3.0 32 Laboratory Tests 09/19/17 06:00: White Blood Count 20.7H, Red Blood Count 2.73L, Hemoglobin 8.9L, Hematocrit 26.7L, Mean Corpuscular Volume 98, Mean Corpuscular Hemoglobin 32.7H, Mean Corpuscular Hemoglobin Concent 33.5, Red Cell Distribution Width 16.8H, Platelet Count 337, Mean Platelet Volume 7.0, Neutrophils (%) (Auto) , Lymphocytes (%) (Auto) , Monocytes (%) (Auto) , Eosinophils (%) (Auto) , Basophils (%) (Auto) , Differential Total Cells Counted 100, Neutrophils % ( Manual) 92H, Lymphocytes % (Manual) 5L, Monocytes % (Manual) 3, Eosinophils % ( Manual) 0, Basophils % (Manual) 0, Band Neutrophils 0, Platelet Estimate Adequate, Platelet Morphology Normal, Sodium Level 134L, Potassium Level 4.0, Chloride Level 102, Carbon Dioxide Level 26, Anion Gap 6, Blood Urea Nitrogen 10 , Creatinine 0.7, Estimat Glomerular Filtration Rate > 60, Glucose Level 111#H, Calcium Level 7.6L, Total Bilirubin 0.1L, Aspartate Amino Transf (AST/SGOT) 19, Alanine Aminotransferase (ALT/SGPT) 12, Alkaline Phosphatase 225H, Total Protein 6.0L, Albumin 1.0L, Globulin 5.0, Albumin/Globulin Ratio 0.2L 09/19/17 10:00: Urine Color Pale yellow, Urine Appearance Clear, Urine pH 6, Urine Specific [place] 1.010, Urine Protein 2+H, Urine Glucose (UA) 3+H, Urine Ketones Negative , Urine Occult Blood Negative, Urine Nitrite Negative, Urine Bilirubin Negative , Urine Urobilinogen Normal, Urine Leukocyte Esterase Negative, Urine RBC 0-2, Urine WBC 0-2, Urine Squamous Epithelial Cells Occasional, Urine Bacteria Occasional, Urine Mucus FewH Height (Feet): 5 Height (Inches): 3.00 Weight (Pounds): 158 General Appearance: no apparent distress Neck: non-tender Cardiovascular: normal rate Respiratory/Chest: decreased breath sounds Abdomen: normal bowel sounds Objective Current Medications Medications (Trade) Dose Ordered Sig/Adonay Route PRN Reason Start Time Stop Time Status Last Admin Dose Admin Acetaminophen/ Hydrocodone Bitart ([place] 10/325) 1 ea Q4H PRN ORAL Moderate Pain (Pain Scale 4-6) 09/15/17 19:00 09/22/17 18:59 09/20/17 04:23 Albuterol/ Ipratropium (Albuterol/ Ipratropium) 3 ml Q4HRT HHN 09/19/17 15:00 09/24/17 14:59 09/20/17 03:05 Amlodipine Besylate (Norvasc) 10 mg DAILY NG 09/11/17 09:00 10/11/17 08:59 09/18/17 09:15 Ascorbic Acid (Vitamin C) 500 mg DAILY NG 09/10/17 09:00 09/22/17 08:59 09/19/17 08:48 Cefepime HCl 2 gm/ Sodium Chloride 110 ml @ 220 mls/hr Q24H IVPB 09/15/17 16:00 09/22/17 15:59 09/19/17 16:20 Chlorhexidine Gluconate ([place]-Hex 2%) 1 applic DAILY@2000 TOPIC 09/14/17 20:00 10/14/17 19:59 09/19/17 20:41 Clonidine HCl (Catapres) 0.1 mg Q6H PRN NG SBP > 160mmHg 09/09/17 13:40 09/22/17 13:39 Dextrose (Dextrose 50%) STAT PRN IV Hypoglycemia 09/12/17 06:30 10/12/17 06:29 Dextrose/Sodium Chloride 1,000 ml @ 50 mls/hr Q20H IV 09/10/17 14:30 10/10/17 14:29 09/19/17 18:41 Enoxaparin Sodium (Lovenox) 70 mg Q12HR SUBQ 09/18/17 21:00 10/18/17 20:59 09/19/17 21:04 Insulin Aspart (NovoLOG) EVERY 6 HOURS SUBQ 09/12/17 06:30 10/12/17 06:29 09/19/17 18:51 Insulin Detemir (Levemir) 8 units QHS SUBQ 09/12/17 21:00 10/11/17 08:59 09/19/17 20:49 Lansoprazole (Prevacid) 30 mg ACBREAKFAST NG 09/10/17 06:30 10/10/17 06:29 09/19/17 05:51 Levothyroxine Sodium (Synthroid) 100 mcg ACBREAKFAST NG 09/10/17 06:30 10/10/17 06:29 09/19/17 05:52 Losartan Potassium (Cozaar) 50 mg DAILY NG 09/10/17 09:00 09/22/17 08:59 09/19/17 08:47 Metronidazole (Flagyl) 500 mg EVERY 8 HOURS ORAL 09/17/17 14:00 09/24/17 13:59 09/19/17 20:42 Micafungin Sodium 100 mg/Sodium Chloride 100 ml @ 100 mls/hr Q24H IVPB 09/15/17 15:00 09/22/17 14:59 09/19/17 14:45 Quetiapine Fumarate (SEROquel) 12.5 mg Q12H PRN NG Agitation 09/14/17 15:00 09/29/17 13:44 Vancomycin HCl (Vanco rx to dose) 1 ea DAILY PRN MISC Per rx protocol 09/19/17 09:30 10/19/17 09:29 Vancomycin/Sodium Chloride 250 ml @ 166.667 mls/hr Q24H IVPB 09/19/17 11:00 09/24/17 10:59 09/19/17 11:00 Item Value Date Time Bedside Blood Glucose 241 mg/dl H 09/20/17 0000 Bedside Blood Glucose 220 mg/dl H 09/19/17 2049 Bedside Blood Glucose 230 mg/dl H 09/19/17 1851 Bedside Blood Glucose 199 mg/dl H 09/19/17 1200 KAYLEE DARNELL Sep 20, 2017 05:50
--- NOTE | 2017-09-20 05:51 | General Progress Note ---
Assessment/Plan Problem List: (1) DKA (diabetic ketoacidoses) ICD Codes: E13.10 - Other specified diabetes mellitus with ketoacidosis without coma SNOMED: 32319843, 154990960 (2) Altered level of consciousness ICD Codes: R40.4 - Transient alteration of awareness SNOMED: 1678808 (3) Hyperkalemia ICD Codes: E87.5 - Hyperkalemia SNOMED: 69825553 (4) Rhabdomyolysis ICD Codes: M62.82 - Rhabdomyolysis SNOMED: 586256708, 880442551 (5) Diabetes mellitus out of control ICD Codes: E11.65 - Type 2 diabetes mellitus with hyperglycemia SNOMED: 589757553, 53568548 (6) Sepsis ICD Codes: A41.9 - Sepsis, unspecified organism SNOMED: 14669177 (7) Hypothyroidism ICD Codes: E03.9 - Hypothyroidism, unspecified SNOMED: 64543943 Assessment/Plan increase Levemir to 10 units qhs DC D5NS continue Novolog sliding scale sensitive scale every 6 hours Continue Levothyroxine to 100 mcg daily - increased from 75 mcg on 09/09/17 repeat TSH in 2 weeks Subjective ROS Limited/Unobtainable: Yes Allergies: Coded Allergies: No Known Allergies (Unverified , 08/18/17) All Systems: reviewed and negative except above Subjective TF tolerated on D5NS BG on higher side Objective Last 24 Hour Vital Signs Date Time Temp Pulse Resp B/P (MAP) Pulse Ox O2 Delivery O2 Flow Rate FiO2 09/20/17 05:22 97.9 09/20/17 03:06 85 20 98 Nasal Cannula 3.0 09/20/17 03:00 83 20 98 Nasal Cannula 3.0 09/20/17 00:00 97.9 86 20 152/82 100 Nasal Cannula 3.0 09/19/17 23:06 80 20 99 Nasal Cannula 4.0 09/19/17 23:00 73 20 97 Nasal Cannula 3.0 09/19/17 20:00 98.1 89 20 151/87 94 Nasal Cannula 3.0 09/19/17 19:29 83 20 98 Nasal Cannula 4.0 09/19/17 19:29 98 Nasal Cannula 3.0 32 09/19/17 19:29 Nasal Cannula 3.0 32 09/19/17 19:25 81 20 96 Nasal Cannula 3.0 09/19/17 16:01 98.0 87 20 143/72 98 Nasal Cannula 3.0 09/19/17 15:34 87 20 Nasal Cannula 4.0 09/19/17 15:25 83 20 95 Nasal Cannula 4.0 09/19/17 11:55 89 22 99 Nasal Cannula 4.0 09/19/17 11:49 85 20 95 Nasal Cannula 4.0 09/19/17 11:42 85 20 Nasal Cannula 4.0 09/19/17 11:21 98.2 90 20 142/84 97 Nasal Cannula 3.0 09/19/17 08:47 117/79 09/19/17 08:12 98.1 90 18 117/79 96 Room Air 09/19/17 07:46 98 Nasal Cannula 3.0 32 09/19/17 07:46 Nasal Cannula 3.0 32 Laboratory Tests 09/19/17 06:00: White Blood Count 20.7H, Red Blood Count 2.73L, Hemoglobin 8.9L, Hematocrit 26.7L, Mean Corpuscular Volume 98, Mean Corpuscular Hemoglobin 32.7H, Mean Corpuscular Hemoglobin Concent 33.5, Red Cell Distribution Width 16.8H, Platelet Count 337, Mean Platelet Volume 7.0, Neutrophils (%) (Auto) , Lymphocytes (%) (Auto) , Monocytes (%) (Auto) , Eosinophils (%) (Auto) , Basophils (%) (Auto) , Differential Total Cells Counted 100, Neutrophils % ( Manual) 92H, Lymphocytes % (Manual) 5L, Monocytes % (Manual) 3, Eosinophils % ( Manual) 0, Basophils % (Manual) 0, Band Neutrophils 0, Platelet Estimate Adequate, Platelet Morphology Normal, Sodium Level 134L, Potassium Level 4.0, Chloride Level 102, Carbon Dioxide Level 26, Anion Gap 6, Blood Urea Nitrogen 10 , Creatinine 0.7, Estimat Glomerular Filtration Rate > 60, Glucose Level 111#H, Calcium Level 7.6L, Total Bilirubin 0.1L, Aspartate Amino Transf (AST/SGOT) 19, Alanine Aminotransferase (ALT/SGPT) 12, Alkaline Phosphatase 225H, Total Protein 6.0L, Albumin 1.0L, Globulin 5.0, Albumin/Globulin Ratio 0.2L 09/19/17 10:00: Urine Color Pale yellow, Urine Appearance Clear, Urine pH 6, Urine Specific [place] 1.010, Urine Protein 2+H, Urine Glucose (UA) 3+H, Urine Ketones Negative , Urine Occult Blood Negative, Urine Nitrite Negative, Urine Bilirubin Negative , Urine Urobilinogen Normal, Urine Leukocyte Esterase Negative, Urine RBC 0-2, Urine WBC 0-2, Urine Squamous Epithelial Cells Occasional, Urine Bacteria Occasional, Urine Mucus FewH Height (Feet): 5 Height (Inches): 3.00 Weight (Pounds): 158 General Appearance: no apparent distress Neck: non-tender Cardiovascular: normal rate Respiratory/Chest: decreased breath sounds Abdomen: normal bowel sounds Objective Current Medications Medications (Trade) Dose Ordered Sig/Adonay Route PRN Reason Start Time Stop Time Status Last Admin Dose Admin Acetaminophen/ Hydrocodone Bitart ([place] 10/325) 1 ea Q4H PRN ORAL Moderate Pain (Pain Scale 4-6) 09/15/17 19:00 09/22/17 18:59 09/20/17 04:23 Albuterol/ Ipratropium (Albuterol/ Ipratropium) 3 ml Q4HRT HHN 09/19/17 15:00 09/24/17 14:59 09/20/17 03:05 Amlodipine Besylate (Norvasc) 10 mg DAILY NG 09/11/17 09:00 10/11/17 08:59 09/18/17 09:15 Ascorbic Acid (Vitamin C) 500 mg DAILY NG 09/10/17 09:00 09/22/17 08:59 09/19/17 08:48 Cefepime HCl 2 gm/ Sodium Chloride 110 ml @ 220 mls/hr Q24H IVPB 09/15/17 16:00 09/22/17 15:59 09/19/17 16:20 Chlorhexidine Gluconate ([place]-Hex 2%) 1 applic DAILY@2000 TOPIC 09/14/17 20:00 10/14/17 19:59 09/19/17 20:41 Clonidine HCl (Catapres) 0.1 mg Q6H PRN NG SBP > 160mmHg 09/09/17 13:40 09/22/17 13:39 Dextrose (Dextrose 50%) STAT PRN IV Hypoglycemia 09/12/17 06:30 10/12/17 06:29 Dextrose/Sodium Chloride 1,000 ml @ 50 mls/hr Q20H IV 09/10/17 14:30 10/10/17 14:29 09/19/17 18:41 Enoxaparin Sodium (Lovenox) 70 mg Q12HR SUBQ 09/18/17 21:00 10/18/17 20:59 09/19/17 21:04 Insulin Aspart (NovoLOG) EVERY 6 HOURS SUBQ 09/12/17 06:30 10/12/17 06:29 09/19/17 18:51 Insulin Detemir (Levemir) 8 units QHS SUBQ 09/12/17 21:00 10/11/17 08:59 09/19/17 20:49 Lansoprazole (Prevacid) 30 mg ACBREAKFAST NG 09/10/17 06:30 10/10/17 06:29 09/19/17 05:51 Levothyroxine Sodium (Synthroid) 100 mcg ACBREAKFAST NG 09/10/17 06:30 10/10/17 06:29 09/19/17 05:52 Losartan Potassium (Cozaar) 50 mg DAILY NG 09/10/17 09:00 09/22/17 08:59 09/19/17 08:47 Metronidazole (Flagyl) 500 mg EVERY 8 HOURS ORAL 09/17/17 14:00 09/24/17 13:59 09/19/17 20:42 Micafungin Sodium 100 mg/Sodium Chloride 100 ml @ 100 mls/hr Q24H IVPB 09/15/17 15:00 09/22/17 14:59 09/19/17 14:45 Quetiapine Fumarate (SEROquel) 12.5 mg Q12H PRN NG Agitation 09/14/17 15:00 09/29/17 13:44 Vancomycin HCl (Vanco rx to dose) 1 ea DAILY PRN MISC Per rx protocol 09/19/17 09:30 10/19/17 09:29 Vancomycin/Sodium Chloride 250 ml @ 166.667 mls/hr Q24H IVPB 09/19/17 11:00 09/24/17 10:59 09/19/17 11:00 Item Value Date Time Bedside Blood Glucose 241 mg/dl H 09/20/17 0000 Bedside Blood Glucose 220 mg/dl H 09/19/17 2049 Bedside Blood Glucose 230 mg/dl H 09/19/17 1851 Bedside Blood Glucose 199 mg/dl H 09/19/17 1200 KAYLEE DARNELL Sep 20, 2017 05:50
[2017-09-20] MEDS: NovoLOG Insulin Flexpen SUBQ SCH ×4 (06:00→18:37)
[2017-09-20] MEDS: metroNIDAZOLE 500mg tab ORAL SCH ×2 (06:01→15:15)
[2017-09-20 06:28] LABS: HEMOGLOBIN 9.8 G/DL (12.0-16.0); MEAN CORPUSCULAR VOLUME 98 FL (80-99); PLATELET COUNT 388 K/UL (150-450); RED BLOOD COUNT 2.86 M/UL (4.20-5.40); RED CELL DISTRIBUTION WIDTH 17.2 % (11.6-14.8); WHITE BLOOD COUNT 20.6 K/UL (4.8-10.8)
[2017-09-20 07:11] LABS: ALANINE AMINOTRANSFERASE 11 U/L (12-78); ALBUMIN 0.9 G/DL (3.4-5.0); ALBUMIN/GLOBULIN RATIO 0.2 (1.0-2.7); ALKALINE PHOSPHATASE 226 U/L (46-116); ANION GAP 8 mmol/L (5-15); ASPARTATE AMINO TRANSFERASE 18 U/L (15-37); BILIRUBIN,TOTAL 0.2 MG/DL (0.2-1.0); BLOOD UREA NITROGEN 11 mg/dL (7-18); CALCIUM 7.5 MG/DL (8.5-10.1); CARBON DIOXIDE 25 MMOL/L (21-32); CHLORIDE 100 MMOL/L (98-107); CREATININE 0.7 MG/DL (0.55-1.30); POTASSIUM 3.9 MMOL/L (3.5-5.1); SODIUM 133 MMOL/L (136-145)
[2017-09-20 08:00] VITALS: BP 132/105
[2017-09-20] MEDS: Ascorbic Acid 500mg tab NG SCH (09:26)
[2017-09-20] MEDS: Losartan 50mg tab NG SCH (09:28)
[2017-09-20] MEDS: Enoxaparin Sodium 300mg/3ml vial SUBQ SCH ×2 (09:33→21:00)
--- NOTE | 2017-09-20 10:07 | Diagnostic Imaging Report ---
Indication: Dyspnea Technique: One view of the chest Comparison: 10:30 11/21/16 Findings: Large left pleural effusion persists. Bilateral diffuse interstitial disease is unchanged. Left arm PICC remains. Left distal clavicular deformity is again demonstrated Impression: Unchanged, over one day, findings as above.
[2017-09-20] MEDS: Vancomycin 750mg/NS 250ml IVPB SCH (10:54)
[2017-09-20 12:00] VITALS: BP 152/69
[2017-09-20 16:00] VITALS: BP 127/109
[2017-09-20] MEDS: Cefepime HCl 2 GM in NS 110 ML IVPB SCH (16:08)
--- NOTE | 2017-09-20 16:59 | Discharge Summary ---
Discharge Summary Hospital Course Date of Admission Aug 18, 2017 at 19:00 Date of Discharge 09-20-17 Admitting Diagnosis Sepsis, hyperkalemia, rhabdomyolysis HPI Rosaura Barnett is a 67 year old female who was admitted on Aug 18, 2017 at 19: 00 for Sepsis,Hyperkalemia,Rhabdomyolysis Consultations ID, endo, urology, surgery, vascular, psych, GI, plastics Procedures PEG; R AKA Hospital Course admitted w UTI and sepsis with DKA better w insulin, abx developed pneumonia and fungemia antifungals given PEG placed WBC remained in 20s RLE cyanotic and AKA done transferred to contract hospital Discharge Condition Upon Discharge: other - fair Discharge Disposition Patient was discharged to outside hospital Discharge Diagnoses: (1) DKA (diabetic ketoacidoses) (2) Sepsis (3) Rhabdomyolysis (4) Renal insufficiency (5) Dysphagia (6) Altered level of consciousness (7) Hyperkalemia (8) Hypothyroidism (9) anemia (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
[2017-09-20 20:00] VITALS: BP 146/81
[2017-09-20] MEDS: Dyna-Hex 2% Top Sol 2oz TOPIC SCH (20:00)
[2017-09-20] MEDS ORDERED: Levemir Flexpen SUBQ SCH (21:00)
[2017-09-20] MEDS ORDERED: NS 275ml ONE (21:14)
[2017-09-20] MEDS ORDERED: D5 1/2NS 1000ml IV ONE (21:14)
--- NOTE | 2017-09-20 23:26 | General Progress Note ---
Assessment/Plan Assessment/Plan Assessment - Respiratory failure - leukocytosis - Anemia - IDDM - s/p PEG - (R) LE amputation Recommendations - Continue feeds - monitor residuals - GT care - Elevate HOB - abx - wound care - d/c planning Subjective Allergies: Coded Allergies: No Known Allergies (Unverified , 08/18/17) Subjective above noted tolerating TF well for d/c today Objective Last 24 Hour Vital Signs Date Time Temp Pulse Resp B/P (MAP) Pulse Ox O2 Delivery O2 Flow Rate FiO2 09/20/17 20:00 97.7 83 20 146/81 92 Nasal Cannula 2.0 09/20/17 19:59 85 18 96 Nasal Cannula 3.0 32 09/20/17 19:45 83 20 94 Nasal Cannula 3.0 32 09/20/17 19:44 Nasal Cannula 3.0 32 09/20/17 19:42 95 Nasal Cannula 3.0 32 09/20/17 17:37 98.1 09/20/17 16:00 98.1 100 21 127/109 93 Nasal Cannula 2.0 09/20/17 15:27 78 20 99 Nasal Cannula 2.0 28 09/20/17 15:20 75 20 94 Nasal Cannula 2.0 28 09/20/17 12:00 97.9 92 18 152/69 98 Nasal Cannula 2.0 09/20/17 11:35 85 20 99 Nasal Cannula 2.0 28 09/20/17 11:30 86 20 94 Nasal Cannula 2.0 28 09/20/17 09:28 132/105 09/20/17 09:27 87 132/105 09/20/17 08:00 97.6 87 18 132/105 98 Nasal Cannula 3.0 09/20/17 07:59 98 Nasal Cannula 2.0 28 09/20/17 07:59 Nasal Cannula 2.0 28 09/20/17 07:56 79 20 99 Nasal Cannula 2.0 28 09/20/17 07:50 85 20 96 Nasal Cannula 2.0 28 09/20/17 04:00 98.1 87 20 139/87 96 Nasal Cannula 3.0 09/20/17 03:06 85 20 98 Nasal Cannula 3.0 09/20/17 03:00 83 20 98 Nasal Cannula 3.0 09/20/17 00:00 97.9 86 20 152/82 100 Nasal Cannula 3.0 Intake and Output 09/20/17 09/21/17 19:00 07:00 Intake Total 920 ml Output Total 1500 ml Balance -580 ml Free Water 260 ml Tube Feeding 660 ml Output Urine Total 1500 ml # Bowel Movements 1 1 Laboratory Tests 09/20/17 03:45: White Blood Count 20.6H, Red Blood Count 2.86L, Hemoglobin 9.8L, Hematocrit 28.0L, Mean Corpuscular Volume 98, Mean Corpuscular Hemoglobin 34.2H, Mean Corpuscular Hemoglobin Concent 34.9, Red Cell Distribution Width 17.2H, Platelet Count 388, Mean Platelet Volume 7.0, Neutrophils (%) (Auto) , Lymphocytes (%) (Auto) , Monocytes (%) (Auto) , Eosinophils (%) (Auto) , Basophils (%) (Auto) , Differential Total Cells Counted 100, Neutrophils % ( Manual) 82H, Lymphocytes % (Manual) 10L, Monocytes % (Manual) 8, Eosinophils % ( Manual) 0, Basophils % (Manual) 0, Band Neutrophils 0, Platelet Estimate Adequate, Platelet Morphology Normal, Hypochromasia 1+, Anisocytosis 1+, Sodium Level 133L, Potassium Level 3.9, Chloride Level 100, Carbon Dioxide Level 25, Anion Gap 8, Blood Urea Nitrogen 11, Creatinine 0.7, Estimat Glomerular Filtration Rate > 60, Glucose Level 236#H, Calcium Level 7.5L, Total Bilirubin 0.2, Aspartate Amino Transf (AST/SGOT) 18, Alanine Aminotransferase (ALT/SGPT) 11L, Alkaline Phosphatase 226H, Total Protein 5.9L, Albumin 0.9L, Globulin 5.0, Albumin/Globulin Ratio 0.2L Height (Feet): 5 Height (Inches): 3.00 Weight (Pounds): 157 Objective Thin AA woman NCAT Neck supple Chest: b/l coarse BS RRR soft mild distention and TTP, (+) GT RLE amputation FERNANDOERIKA CHERRY Sep 20, 2017 23:26
--- NOTE | 2017-09-21 18:32 | General Progress Note ---
Assessment/Plan Assessment/Plan agitated at times much improved Subjective Date patient seen: Sep 20, 2017 Allergies: Coded Allergies: No Known Allergies (Unverified , 08/18/17) Subjective calm no agitation Objective Last 24 Hour Vital Signs Date Time Temp Pulse Resp B/P (MAP) Pulse Ox O2 Delivery O2 Flow Rate FiO2 09/20/17 20:00 97.7 83 20 146/81 92 Nasal Cannula 2.0 09/20/17 19:59 85 18 96 Nasal Cannula 3.0 32 09/20/17 19:45 83 20 94 Nasal Cannula 3.0 32 09/20/17 19:44 Nasal Cannula 3.0 32 09/20/17 19:42 95 Nasal Cannula 3.0 32 Height (Feet): 5 Height (Inches): 3.00 Weight (Pounds): 157 Audi Bonilla M.D. Sep 21, 2017 18:32
--- NOTE | 2017-09-22 13:19 | Diagnostic Imaging Report ---
Indications: DYSPHAGIA Technique: Patient ingested multiple substances under the supervision of speech pathology. Video fluoroscopic recording performed. Total fluoroscopy time 226 seconds. Total dose area product 0.66442 mGycm2 Comparison: none Findings: There is early pooling of thin liquid barium. Ingestion of thin liquid barium through a cup results in equivocal trace supraglottic laryngeal penetration. There is early pooling with ingestion of nectar thick liquid barium. No aspiration or penetration demonstrated. Ingestion of barium pur?e is uneventful. Impression: Very questionable penetration of thin liquid barium Please refer to speech pathology report for more detailed analysis
--- NOTE | 2017-09-22 13:19 | Diagnostic Imaging Report ---
Indications: DYSPHAGIA Technique: Patient ingested multiple substances under the supervision of speech pathology. Video fluoroscopic recording performed. Total fluoroscopy time 226 seconds. Total dose area product 0.97830 mGycm2 Comparison: none Findings: There is early pooling of thin liquid barium. Ingestion of thin liquid barium through a cup results in equivocal trace supraglottic laryngeal penetration. There is early pooling with ingestion of nectar thick liquid barium. No aspiration or penetration demonstrated. Ingestion of barium pur?e is uneventful. Impression: Very questionable penetration of thin liquid barium Please refer to speech pathology report for more detailed analysis
--- NOTE | 2017-09-22 13:19 | Diagnostic Imaging Report ---
Indications: DYSPHAGIA Technique: Patient ingested multiple substances under the supervision of speech pathology. Video fluoroscopic recording performed. Total fluoroscopy time 226 seconds. Total dose area product 0.31701 mGycm2 Comparison: none Findings: There is early pooling of thin liquid barium. Ingestion of thin liquid barium through a cup results in equivocal trace supraglottic laryngeal penetration. There is early pooling with ingestion of nectar thick liquid barium. No aspiration or penetration demonstrated. Ingestion of barium pur?e is uneventful. Impression: Very questionable penetration of thin liquid barium Please refer to speech pathology report for more detailed analysis
--- NOTE | 2017-09-27 08:12 | Endoscopy Procedure Note ---
Endoscopy Procedure Note Indication for Procedure: dysphagia Operative Findings/Diagnosis: GT placed (09/04/17) Specimen: none Pt Tolerated Procedure Well: Yes Estimated Blood Loss: minimal Anesthesiologist: see report Anesthesia: moderate sedation Medication Given: see anesthesia record PEG: placed Implant(s) used?: No 50 yrs or older w/o bx or poly: Not Applicable 10yrs. F/U not recommended: Not Applicable If not recommended, why?: ERIKA ESPINOSA Sep 27, 2017 08:12
--- NOTE | 2017-09-27 08:13 | Brief Operative Note ---
Immediate Post Operative Note Operative Note Chief Complaint: dysphaia Pre-op Diagnosis: Dysphagia Procedure: GT placed (09/04/17) Post-op Diagnosis: dysphagia Surgeon: marina Anesthesiologist: see report Anesthesia: MAC Specimen: none Complications: none Condition: stable Fluids: see anesthesia Estimated Blood Loss: none Drains: none Implant(s) used?: No ERIKA ESPINOSA Sep 27, 2017 08:13
--- NOTE | 2017-09-27 16:30 | Operative Note - Dictated ---
DATE OF OPERATION: 09/04/2017 GASTROENTEROLOGY PROCEDURE REPORT PROCEDURE: Upper gastrointestinal endoscopy with gastrostomy tube placement. SURGEON: Lauri Marroquin M.D. ANESTHESIA: Please see the separate anesthesiologist notes for details. PREOPERATIVE DIAGNOSIS: Dysphagia. POSTOPERATIVE DIAGNOSIS: Status post gastrostomy tube placement. DESCRIPTION OF PROCEDURE: The procedure, its risks, indications, alternatives, and possible complications were explained and an informed consent was obtained. The patient was then sedated in the supine position and a diagnostic upper endoscope was introduced through the oropharynx and advanced to the duodenum without difficulty. The endoscope was then gradually withdrawn and the mucosa was examined carefully. Examination of the upper gastrointestinal mucosa did not reveal any significant abnormalities. The gastrostomy tube was thereafter placed using a standard pull technique. The patient was sent to recovery in good condition. COMPLICATIONS: None. RECOMMENDATIONS: 1. Observe overnight. 2. Resume tube feedings tomorrow. Lauri Marroquin M.D. DR: JATIN JOB#: [id number] CC:
--- NOTE | 2017-09-28 07:31 | Operative Note - Dictated ---
DATE OF OPERATION: 09/15/2017 PREOPERATIVE DIAGNOSES: 1. Right lower extremity gangrene. 2. 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 POSTOPERATIVE DIAGNOSES: 1. Right lower extremity gangrene. 2. 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 PROCEDURE PERFORMED: 1. Right [id number] amputation. 2. Right knee effusion and aspiration. SURGEON: Regino De M.D. ANESTHESIA: General. ANESTHESIOLOGIST: Miguel Lay M.D. INDICATION: The patient is an elderly female, who in addition to sacral decubitus ulcer was also noted to have a right foot gangrene. A duplex showed evidence of severe multivessel occlusion in the extremity and revascularization was therefore not recommended due to the patient's debilitated state and leg amputation was recommended and agreed upon by the patient. INTRAOPERATIVE FINDINGS: There appeared a knee effusion, which was first aspirated and sent for laboratory analysis. The above-knee amputation was then performed and there was adequate perfusion at the level of the incision and good closure of the stump was accomplished without any tension at the scar. PROCEDURE IN DETAIL: With the patient in supine position, after induction of anesthesia, the right lower extremity was prepped and draped in usual sterile fashion. The apparent effusion in the right knee was first aspirated with a large bore needle and some clear fluid was obtained and sent to laboratory. A "fish mouth" incision was then made just above the knee and carried through the skin and the underlying fascia. The right popliteal artery and vein as well as a bypass graft were then individually ligated with heavy and divided more proximally in the stump. The soft tissues were then divided using electrocautery along the incision and the major nerve structures ligated proximally, divided high in the stump as possible. The femur was then and the periosteum reflected with a periosteal elevator and the femur divided with an oscillating saw leaving a beveled anterior edge. After removal of the specimen, the femoral stump edges were smoothened with bolus and good hemostasis ensured and wound irrigated with antibiotic solution. Anterior and posterior flaps were reapproximated over the femoral stump with interrupted sutures of 2-0 and 3-0 Vicryl for the deep layers and interrupted 3-0 Vicryl sutures for the subcutaneous fascial reapproximation. The skin was closed with interrupted sutures of 3-0 Nylon in a vertical mattress fashion, staggered with skin jose elias. Antibiotic ointment and dressings were applied and the patient was brought out of anesthesia and transferred to the PACU in stable condition. She tolerated the procedure well. At the conclusion of procedure, sponge, needle, and instrument counts were correct. ESTIMATED BLOOD LOSS: Minimal. COMPLICATIONS: None. DRAINS: None. SPECIMEN: Amputated right leg and right knee fluid for cultures. Regino De M.D. DR: Hawa JOB#: [id number] CC:
== END 2017-09-20 21:15 | disposition short-term general hospital (02) | DRG 853 ==
LOC: EDBD 15:34 → EMR 16:14 → 2W 19:00 → EDBEDREQ 19:18 → ICU 08-19 07:46 → 2W 08-21 18:52 → 4W 09-09 14:29 → 4E 09-20 16:40
DX: A41.9 Sepsis, unspecified organism (principal); J96.90 Respiratory failure, unspecified, unspecified whether with hypoxia or hypercapnia; N17.9 Acute kidney failure, unspecified; J15.212 Pneumonia due to Methicillin resistant Staphylococcus aureus; L89.504 Pressure ulcer of unspecified ankle, stage 4; E13.10 Other specified diabetes mellitus with ketoacidosis without coma; I96 Gangrene, not elsewhere classified; G92 Toxic encephalopathy; I70.261 Atherosclerosis of native arteries of extremities with gangrene, right leg; E87.0 Hyperosmolality and hypernatremia; E11.52 Type 2 diabetes mellitus with diabetic peripheral angiopathy with gangrene; B49 Unspecified mycosis; M62.82 Rhabdomyolysis; N39.0 Urinary tract infection, site not specified; L89.150 Pressure ulcer of sacral region, unstageable; R13.10 Dysphagia, unspecified; E11.65 Type 2 diabetes mellitus with hyperglycemia; Z79.4 Long term (current) use of insulin; R65.20 Severe sepsis without septic shock; I10 Essential (primary) hypertension; F32.9 Major depressive disorder, single episode, unspecified; F41.9 Anxiety disorder, unspecified; G89.4 Chronic pain syndrome; E03.9 Hypothyroidism, unspecified; M81.0 Age-related osteoporosis without current pathological fracture; D64.9 Anemia, unspecified; E87.6 Hypokalemia; E87.5 Hyperkalemia; E86.0 Dehydration; M25.461 Effusion, right knee
CPT/HCPCS: 36415; 36569; 36600; 70450; 71010; 74000; 74176; 74230; 76700; 76856; 76937; 80048; 80053; 80202; 80300; 81001; 81003; 82150; 82550; 82553; 82728; 82803; 82962; 83036; 83540; 83550; 83605; 83690; 83735; 83880; 84100; 84439; 84443; 84484; 85007; 85025; 85610; 85730; 86850; 86900; 86901; 86920; 87040; 87070; 87081; 87086; 87181; 87205; 87324; 89051; 93005; 93306; 93925; 93970; 94003; 94150; 94640; 94660; 94664; 94760; 99285; J1815; J2250; J2370; J2710; J2765; J7620; S5561